=== PATIENT | female | born 1950 | race African-American/Black ===

== ENCOUNTER 2016-09-01 10:49 | Outpatient (CLI) | payer MEDICARE ==
--- NOTE | 2016-09-01 13:49 | Mammography Report ---
BILATERAL MAMMOGRAM: FINDINGS: The breasts are almost entirely fat (<25% glandular). No mass, distortion, suspicious calcification, or skin change is seen. There no significant changes compared to her prior study in July 2015. CAD was utilized. IMPRESSION: Negative mammogram. There is no mammographic evidence of malignancy. RECOMMENDATION: Follow-up per ACS guidelines. BI-RADS CATEGORY: 1 = Negative ACR BI-RADS MAMMOGRAPHIC CODES: 0 = Needs additional imaging evaluation; 1 = Negative; 2 = Benign; 3 = Probably benign; 4 = Suspicious; 5 = Malignant; 6 = Known biopsy-proven malignancy COMMENT: 1. Dense breast tissue, i.e., adenosis, fibrocystic changes, etc., may obscure an underlying neoplasm. 2. Approximately 10% of cancers are not detected with mammography. 3. A negative mammography report should not delay biopsy if a clinically suspicious mass is present. COMMENT: Patient follow-up letters are generated in [employer].
== END 2016-09-01 10:50 | disposition home or self-care (01) ==
LOC: MAMMO 10:49
PROVIDERS: ATTEND Family Medicine
DX: Z12.31 Encounter for screening mammogram for malignant neoplasm of breast (principal)
CPT/HCPCS: 77067; G0202

== ENCOUNTER 2017-01-11 02:15 | Emergency (ER) | payer MEDICARE ==
[2017-01-11 03:37] LABS: Basophils % (Auto) 0.2 % (0.0-1.8); Eosinophils % (Auto) 1.3 % (0.0-4.3); Hemoglobin 9.6 gm/dl (10.1-14.3); Mean Corpuscular HGB Conc 33 % (30-34); Mean Corpuscular Hemoglobin 26 pg (28-32); Mean Corpuscular Volume 78 fl (79-97); Platelet Count 176 K/mm3 (140-440); Red Blood Count 3.71 M/mm3 (3.65-5.03); Red Cell Distribution Width 13.2 % (13.2-15.2); White Blood Count 7.2 K/mm3 (4.5-11.0)
[2017-01-11 03:45] LABS: INR 0.97 (0.87-1.13)
[2017-01-11 03:59] LABS: Alanine Aminotransferase 95 units/L (7-56); Albumin 3.8 g/dL (3.9-5); Albumin/Globulin Ratio 0.9 %; Alkaline Phosphatase 94 units/L (35-129); Anion Gap 19 mmol/L; BUN/Creatinine Ratio 16.66; Blood Urea Nitrogen 15 mg/dL (7-17); Calcium 9.7 mg/dL (8.4-10.2); Carbon Dioxide 26 mmol/L (22-30); Chloride 99.4 mmol/L (98-107); Glucose 234 mg/dL (65-100); Lipase 47 units/L (13-60); Potassium 3.7 mmol/L (3.6-5.0); Sodium 141 mmol/L (137-145); Total Protein 7.9 g/dL (6.3-8.2)
[2017-01-11 07:03] LABS: Bacteria,Urine 1+ /HPF (Negative); Bilirubin,Urine NEG (Negative); Blood,Urine NEG (Negative); Ketones,Urine NEG (Negative); Leukocyte Esterase,Urine TR (Negative); Nitrite,Urine NEG (Negative); Protein,Urine <15 mg/dL mg/dL (Negative); Urobilinogen,Urine < 2.0 mg/dL (<2.0)
[2017-01-11 07:35] VITALS: BP 142/49
--- NOTE | 2017-01-11 07:40 | Emergency Department Report ---
ED Abdominal Pain HPI - General Chief Complaint: Abdominal Pain Stated Complaint: SEVERE STOMACH PAIN Time Seen by Provider: 01/11/17 07:30 Source: patient Mode of arrival: Ambulatory Limitations: No Limitations - History of Present Illness Initial Comments: Patient states her symptoms are much improved. She states that she vomited a few times and had diarrhea since 8:00 yesterday. She has some crampy abdominal pain which is resolved. She denies any fever or chills. She denies any signs of GI bleeding. She states that she is ready for discharge at this time. MD Complaint: abdominal pain -: Gradual, hour(s) Location: epigastric Radiation: none Migration to: no migration Severity scale (0 -10): 4 Quality: cramping Consistency: intermittent, now resolved Worsens With: nothing Associated Symptoms: nausea, vomiting, diarrhea Treatments Prior to Arrival: other - Related Data Previous Rx's Medication Instructions Recorded Last Taken Type Metformin HCl [Glucophage] 500 mg PO BID #60 tablet 01/11/17 Unknown Rx Ondansetron [Zofran Odt] 4 mg PO Q6H PRN #7 tab.rapdis 01/11/17 Unknown Rx traMADol [Ultram] 50 mg PO Q6HR PRN #7 tablet 01/11/17 Unknown Rx Allergies Allergy/AdvReac Type Severity Reaction Status Date / Time No Known Allergies Allergy Unverified 08/20/15 08:58 ED Review of Systems ROS: Stated complaint: SEVERE STOMACH PAIN Other details as noted in HPI Constitutional: denies: chills, fever Eyes: denies: eye pain, eye discharge, vision change ENT: denies: ear pain, throat pain Respiratory: denies: cough, shortness of breath, wheezing Cardiovascular: denies: chest pain, palpitations Endocrine: no symptoms reported Gastrointestinal: abdominal pain. denies: nausea, diarrhea Genitourinary: denies: urgency, dysuria, discharge Musculoskeletal: denies: back pain, joint swelling, arthralgia Skin: denies: rash, lesions Neurological: denies: headache, weakness, paresthesias Psychiatric: denies: anxiety, depression Hematological/Lymphatic: denies: easy bleeding, easy bruising ED Past Medical Hx - Past Medical History Previous Medical History?: Yes Hx Hypertension: Yes Hx Diabetes: Yes - Surgical History Past Surgical History?: No - Social History Smoking Status: Never Smoker Substance Use Type: None - Medications Home Medications: Home Medications Medication Instructions Recorded Confirmed Last Taken Type Metformin HCl [Glucophage] 500 mg PO BID #60 tablet 01/11/17 Unknown Rx Ondansetron [Zofran Odt] 4 mg PO Q6H PRN #7 tab.rapdis 01/11/17 Unknown Rx traMADol [Ultram] 50 mg PO Q6HR PRN #7 tablet 01/11/17 Unknown Rx ED Physical Exam - General Limitations: No Limitations General appearance: alert, in no apparent distress - Head Head exam: Present: atraumatic, normocephalic - Eye Eye exam: Present: normal appearance. Absent: scleral icterus - ENT ENT exam: Present: mucous membranes moist - Neck Neck exam: Present: normal inspection - Respiratory Respiratory exam: Present: normal lung sounds bilaterally. Absent: respiratory distress - Cardiovascular Cardiovascular Exam: Present: regular rate, normal rhythm. Absent: systolic murmur, diastolic murmur, rubs, gallop - GI/Abdominal GI/Abdominal exam: Present: soft, normal bowel sounds. Absent: distended, tenderness, guarding, rebound, rigid, organomegaly, mass, bruit, pulsatile mass , hernia - Extremities Exam Extremities exam: Present: normal inspection - Back Exam Back exam: Present: normal inspection - Neurological Exam Neurological exam: Present: alert, oriented X3, CN II-XII intact. Absent: motor sensory deficit - Psychiatric Psychiatric exam: Present: normal affect, normal mood - Skin Skin exam: Present: warm, dry, intact, normal color. Absent: rash ED Course Vital Signs 01/11/17 01/11/17 01/11/17 02:20 06:13 07:23 Temperature 98.0 F 98.9 F 98.8 F Pulse Rate 76 74 66 Respiratory 20 18 18 Rate Blood Pressure 125/66 Blood Pressure 131/79 142/49 [Right] O2 Sat by Pulse 99 95 100 Oximetry - Reevaluation(s) Reevaluation #1: Patient's symptoms have essentially resolved. She states she is ready to go home. She will be treated symptomatically with appropriate follow-up and return criteria given. 01/11/17 07:42 01/11/17 07:44 ED Medical Decision Making - Lab Data Result diagrams: 01/11/17 03:13 01/11/17 03:13 Laboratory Results - last 24 hr 01/11/17 01/11/17 01/11/17 03:13 03:13 03:13 WBC 7.2 RBC 3.71 Hgb 9.6 L Hct 29.0 L MCV 78 L MCH 26 L MCHC 33 RDW 13.2 Plt Count 176 Lymph % (Auto) 24.7 [place] % (Auto) 6.4 Eos % (Auto) 1.3 Baso % (Auto) 0.2 Lymph # 1.8 [place] # 0.5 Eos # 0.1 Baso # 0.0 Seg Neutrophils % 67.4 Seg Neutrophils # 4.9 PT INR APTT Sodium 141 Potassium 3.7 Chloride 99.4 Carbon Dioxide 26 Anion Gap 19 BUN 15 Creatinine 0.9 Estimated GFR > 60 BUN/Creatinine Ratio 16.66 Glucose 234 H Calcium 9.7 Total Bilirubin 0.90 AST 124 H ALT 95 H Alkaline Phosphatase 94 Troponin T < 0.010 Total Protein 7.9 Albumin 3.8 L Albumin/Globulin Ratio 0.9 Lipase 47 Urine Color Urine Turbidity Urine pH Ur Specific [place] Urine Protein Urine Glucose (UA) Urine Ketones Urine Blood Urine Nitrite Urine Bilirubin Urine Urobilinogen Ur Leukocyte Esterase Urine WBC (Auto) Urine RBC (Auto) U Epithel Cells (Auto) Urine Bacteria (Auto) Hyaline Casts 01/11/17 01/11/17 01/11/17 03:13 06:02 06:09 WBC RBC Hgb Hct MCV MCH MCHC RDW Plt Count Lymph % (Auto) [place] % (Auto) Eos % (Auto) Baso % (Auto) Lymph # [place] # Eos # Baso # Seg Neutrophils % Seg Neutrophils # PT 12.8 INR 0.97 APTT 24.0 L Sodium Potassium Chloride Carbon Dioxide Anion Gap BUN Creatinine Estimated GFR BUN/Creatinine Ratio Glucose Calcium Total Bilirubin AST ALT Alkaline Phosphatase Troponin T < 0.010 Total Protein Albumin Albumin/Globulin Ratio Lipase Urine Color Yellow Urine Turbidity Clear Urine pH 6.0 Ur Specific [place] 1.017 Urine Protein <15 mg/dl Urine Glucose (UA) 50 Urine Ketones Neg Urine Blood Neg Urine Nitrite Neg Urine Bilirubin Neg Urine Urobilinogen < 2.0 Ur Leukocyte Esterase Tr Urine WBC (Auto) 2.0 Urine RBC (Auto) 5.0 U Epithel Cells (Auto) 12.0 Urine Bacteria (Auto) 1+ Hyaline Casts 1 Laboratory Results - last 24 hr 01/11/17 01/11/17 01/11/17 03:13 03:13 03:13 WBC 7.2 RBC 3.71 Hgb 9.6 L Hct 29.0 L MCV 78 L MCH 26 L MCHC 33 RDW 13.2 Plt Count 176 Lymph % (Auto) 24.7 [place] % (Auto) 6.4 Eos % (Auto) 1.3 Baso % (Auto) 0.2 Lymph # 1.8 [place] # 0.5 Eos # 0.1 Baso # 0.0 Seg Neutrophils % 67.4 Seg Neutrophils # 4.9 PT INR APTT Sodium 141 Potassium 3.7 Chloride 99.4 Carbon Dioxide 26 Anion Gap 19 BUN 15 Creatinine 0.9 Estimated GFR > 60 BUN/Creatinine Ratio 16.66 Glucose 234 H Calcium 9.7 Total Bilirubin 0.90 AST 124 H ALT 95 H Alkaline Phosphatase 94 Troponin T < 0.010 Total Protein 7.9 Albumin 3.8 L Albumin/Globulin Ratio 0.9 Lipase 47 Urine Color Urine Turbidity Urine pH Ur Specific [place] Urine Protein Urine Glucose (UA) Urine Ketones Urine Blood Urine Nitrite Urine Bilirubin Urine Urobilinogen Ur Leukocyte Esterase Urine WBC (Auto) Urine RBC (Auto) U Epithel Cells (Auto) Urine Bacteria (Auto) Hyaline Casts 01/11/17 01/11/17 01/11/17 03:13 06:02 06:09 WBC RBC Hgb Hct MCV MCH MCHC RDW Plt Count Lymph % (Auto) [place] % (Auto) Eos % (Auto) Baso % (Auto) Lymph # [place] # Eos # Baso # Seg Neutrophils % Seg Neutrophils # PT 12.8 INR 0.97 APTT 24.0 L Sodium Potassium Chloride Carbon Dioxide Anion Gap BUN Creatinine Estimated GFR BUN/Creatinine Ratio Glucose Calcium Total Bilirubin AST ALT Alkaline Phosphatase Troponin T < 0.010 Total Protein Albumin Albumin/Globulin Ratio Lipase Urine Color Yellow Urine Turbidity Clear Urine pH 6.0 Ur Specific [place] 1.017 Urine Protein <15 mg/dl Urine Glucose (UA) 50 Urine Ketones Neg Urine Blood Neg Urine Nitrite Neg Urine Bilirubin Neg Urine Urobilinogen < 2.0 Ur Leukocyte Esterase Tr Urine WBC (Auto) 2.0 Urine RBC (Auto) 5.0 U Epithel Cells (Auto) 12.0 Urine Bacteria (Auto) 1+ Hyaline Casts 1 - EKG Data -: EKG Interpreted by Hi EKG shows normal: sinus rhythm, axis, intervals, QRS complexes, ST-T waves Rate: normal - EKG Data Interpretation: no acute changes Critical care attestation.: If time is entered above; I have spent that time in minutes in the direct care of this critically ill patient, excluding procedure time. ED Disposition Clinical Impression: Vomiting and diarrhea Anemia Qualifiers: Anemia type: unspecified type Qualified Code(s): D64.9 - Anemia, unspecified Type 2 diabetes mellitus Qualifiers: Diabetes mellitus complication status: without complication Diabetes mellitus group home insulin use: without buttermilk drier operator use Qualified Code(s): E11.9 - Type 2 diabetes mellitus without complications Disposition: TO HOME OR SELFCARE Is pt being admited?: No Does the pt Need Aspirin: No Condition: Stable Instructions: Diabetes Mellitus Type 2 in Adults (ED), Acute Diarrhea (ED), Abdominal Pain (ED) Additional Instructions: Follow-up with primary care provider. If you do not have one see the potential referrals. Rx as directed. Return any acute change or worsening symptoms. Prescriptions: Metformin HCl [Glucophage] 500 mg PO BID #60 tablet Ondansetron [Zofran Odt] 4 mg PO Q6H PRN #7 tab.rapdis PRN Reason: Nausea traMADol [Ultram] 50 mg PO Q6HR PRN #7 tablet PRN Reason: Pain Referrals: GABRIELA LARA MD [Primary Care Provider] - 3-5 Days [facility] [Provider Group] - 3-5 Days TERRANCE SALGADO MD [Staff Physician] - 3-5 Days Time of Disposition: 07:46
[2017-01-11] MEDS ORDERED: ULTRAM PO ONE (07:58)
[2017-01-11] MEDS ORDERED: ZOFRAN ODT PO ONE (07:58)
== END 2017-01-11 08:19 | disposition home or self-care (01) ==
LOC: ED 02:15
DX: D64.9 Anemia, unspecified (principal); E11.9 Type 2 diabetes mellitus without complications; R11.10 Vomiting, unspecified; R19.7 Diarrhea, unspecified; I10 Essential (primary) hypertension
CPT/HCPCS: 36415; 80053; 81001; 83690; 84484; 85025; 85610; 85730; 93005; 93010; Q0162

== ENCOUNTER 2020-07-06 07:52 | Inpatient (IN) | payer MEDICARE ==
--- NOTE | 2020-07-06 08:43 | Emergency Department Report ---
ED Shortness of Breath HPI - General Chief Complaint: Dyspnea/Respdistress Stated Complaint: COVID Time Seen by Provider: 07/06/20 08:15 Source: patient Mode of arrival: Ambulatory Limitations: No Limitations - History of Present Illness Initial Comments: 69-year-old female, history of hypertension and diabetes, presents to ED with shortness of breath. Patient tested positive for COVID-19 1 week ago. Patient reports associated cough. Patient presents to ED via EMS. O2 sats on room air is 75%. History obtained from patient's daughter and language line language interpreter. Patient speaks Laotian. MD Complaint: shortness of breath, cough -: week(s) (1) Severity: severe Consistency: constant Improves With: nothing Worsens With: exertion Context: recent URI (Covid positive) Associated Symptoms: cough Treatments Prior to Arrival: oxygen - Related Data Home Oxygen Therapy: No Previous Rx's Medication Instructions Recorded Last Taken Type Metformin HCl [Glucophage] 500 mg PO BID #60 tablet 01/11/17 Unknown Rx Ondansetron [Zofran Odt] 4 mg PO Q6H PRN #7 tab.rapdis 01/11/17 Unknown Rx traMADoL [Ultram] 50 mg PO Q6HR PRN #7 tablet 01/11/17 Unknown Rx Allergies Allergy/AdvReac Type Severity Reaction Status Date / Time No Known Allergies Allergy Unverified 08/20/15 08:58 ED Review of Systems ROS: Stated complaint: COVID Other details as noted in HPI Comment: All other systems reviewed and negative Constitutional: denies: fever Respiratory: cough, shortness of breath Cardiovascular: denies: chest pain ED Past Medical Hx - Past Medical History Previous Medical History?: Yes Hx Hypertension: Yes Hx Diabetes: Yes - Social History Smoking Status: Never Smoker Substance Use Type: None - Medications Home Medications: Home Medications Medication Instructions Recorded Confirmed Last Taken Type Metformin HCl [Glucophage] 500 mg PO BID #60 tablet 01/11/17 Unknown Rx Ondansetron [Zofran Odt] 4 mg PO Q6H PRN #7 tab.rapdis 01/11/17 Unknown Rx traMADoL [Ultram] 50 mg PO Q6HR PRN #7 tablet 01/11/17 Unknown Rx ED Physical Exam - General Limitations: No Limitations General appearance: alert - Head Head exam: Present: atraumatic, normocephalic - Eye Eye exam: Present: normal appearance - ENT ENT exam: Present: mucous membranes moist - Neck Neck exam: Present: normal inspection - Respiratory Respiratory exam: Present: respiratory distress, other (Tachypnea present) - Cardiovascular Cardiovascular Exam: Present: regular rate, normal rhythm - GI/Abdominal GI/Abdominal exam: Present: soft. Absent: distended, tenderness - Extremities Exam Extremities exam: Present: normal inspection - Neurological Exam Neurological exam: Present: alert, oriented X3 - Psychiatric Psychiatric exam: Present: normal affect, normal mood - Skin Skin exam: Present: warm, dry, intact, normal color ED Course Vital Signs 07/06/20 07/06/20 07/06/20 08:16 08:20 08:30 Temperature 98.4 F Pulse Rate 68 71 70 Respiratory 27 H 21 15 Rate Blood Pressure 135/70 Blood Pressure 135/70 [Right] O2 Sat by Pulse 80 L 75 L 89 Oximetry 07/06/20 09:00 Temperature Pulse Rate 66 Respiratory 25 H Rate Blood Pressure 109/62 Blood Pressure [Right] O2 Sat by Pulse 99 Oximetry - Reevaluation(s) Reevaluation #1: 07/06/20 09:[address] patient on high flow nasal cannula. ED Medical Decision Making - Lab Data Result diagrams: 07/06/20 08:50 07/06/20 08:50 - Radiology Data Radiology results: report reviewed, image reviewed - Medical Decision Making 69-year-old female presents to ED with symptoms secondary to COVID-19. Patient tested positive for COVID-19 1 week ago. Patient reports cough and shortness of breath. Patient hypoxic upon arrival, with room air sats in the 70s. Patient placed on high flow nasal cannula. Chest x-ray shows bilateral pneumonia. Glucose is slightly elevated at 385, however patient is not in DKA. Lactic acid slightly elevated at 2.3. Covid markers are also elevated. Renal function shows some evidence of acute renal failure. Blood cultures drawn. Patient given Rocephin, azithromycin, and Decadron. Patient will be admitted to hospitalist for further management. Spoke with Dr. Huynh, states to assign to Dr. Edwards. - Differential Diagnosis COVID-19, pneumonia Critical Care Time: Yes Critical care time in (mins) excluding proc time.: 35 Critical care attestation.: If time is entered above; I have spent that time in minutes in the direct care of this critically ill patient, excluding procedure time. Critical Care Time: 35 min ED Disposition Clinical Impression: Acute respiratory failure with hypoxia, COVID-19, Pneumonia, Acute renal failure, Hyperglycemia Disposition: OP ADMIT IP TO THIS HOSP Is pt being admited?: Yes Condition: Stable Instructions: Bacterial Pneumonia (ED) Referrals: PRIMARY CARE, [Primary Care Provider] - 3-5 Days Time of Disposition: 09:36
[2020-07-06] MEDS ORDERED: cefTRIAXone/NS 1 GM/50 ML 1 GM/50 ML BAG IV ONE (08:48)
[2020-07-06] MEDS ORDERED: DEXAMETHASONE 4 MG TAB PO ONE (08:48)
[2020-07-06] MEDS ORDERED: AZITHROMYCIN 250 MG TAB PO ONE (08:48)
--- NOTE | 2020-07-06 09:08 | XRay Report ---
CHEST 1 VIEW INDICATION: SOB, COVID+. COMPARISON: None FINDINGS: Support devices: None. Heart: Within normal limits. Lungs/Pleura: Diffuse hazy bilateral lung opacities are identified concerning for viral infection, at ypical pneumonia or pulmonary edema. No pleural effusion or pneumothorax. Additional findings: None. IMPRESSION: Bilateral infiltrates as described. Signer Name: Benito Macias Jr, MD Signed: 07/06/2020 9:03 AM Workstation Name: [id number]
[2020-07-06 09:14] LABS: Hematocrit 32.4 % (30.3-42.9); Hemoglobin 10.7 gm/dl (10.1-14.3); Mean Corpuscular HGB Conc 33 % (30-34); Mean Corpuscular Volume 78 fl (79-97); Platelet Count 243 K/mm3 (140-440); Red Blood Count 4.15 M/mm3 (3.65-5.03); Red Cell Distribution Width 13.2 % (13.2-15.2)
[2020-07-06 09:34] LABS: Albumin 3.2 g/dL (3.9-5); C-Reactive Protein 10.4 mg/dL (0.00-1.30); Calcium 8.5 mg/dL (8.4-10.2)
[2020-07-06 09:39] LABS: INR 1.15 (0.87-1.13)
[2020-07-06 09:40] LABS: Partial Thromboplastin Time 25.9 Sec. (24.2-36.6)
[2020-07-06 10:19] LABS: Band Neutrophils # (Manual) 0.4 K/mm3; Total Cells Counted 100
[2020-07-06 10:20] LABS: Anisocytosis 1+; Hypochromasia 1+; Ovalocytes Few; Platelet Estimate Consistent w Auto
--- NOTE | 2020-07-06 10:51 | History and Physical Report ---
History of Present Illness Date of admission: 07/06/20 10:06 History of present illness: This is a 69-year-old female with hypertension, diabetes mellitus, hyperlipidemia who presented to the hospital on 07/06 via EMS with worsening subjective fevers, headache, body ache, dry cough, dyspnea on exertion, fatigue, headache and nausea since the last week end of May. Patient had a positive COVID-19 PCR on 07/05 as outside facility. Patient has limited [place] and no park interpreter line available for use. History is obtained from her daughter Rebecca and ED documentation. Patient did not complain of any hemoptysis, chest pain, night sweats, loss of taste or smell or recent weight loss to her daughter. Patient's family denies any recent travel but endorses possible COVID-19 exposure and next border to sick in household. Upon arrival to the emergency department patient was hypoxic on room air at 75% and tachypneic. Work-up in the emergency department with a CXR which showed bilateral pneumonia, lactic acidosis at 2.3, acute kidney injury at 1.6/45, elevated D-dimer, elevated troponin and slight hyponatremia 136. Patient received Rocephin, azithromycin and Decadron in the emergency department. Patient was admitted to the hospitalist service as a COVID-19 PUI, acute kidney injury, sepsis, lactic acidosis, and elevated D-dimer with consults to pulmonology and infectious disease. Prior visits reviewed and advanced care planning conducted with the daughter over the phone. No home medications available to reconcile. 07/06: COVID-19 PCR positive, azithromycin and Rocephin, Decadron and remdesivir therapy Past History Past Medical History: diabetes, hypertension, hyperlipidemia Past Surgical History: cholecystectomy (2018) Social history: , lives with family, full code. denies: smoking, alcohol abuse, prescription drug abuse, IV drug use Family history: no significant family history Medications and Allergies Allergies Allergy/AdvReac Type Severity Reaction Status Date / Time No Known Allergies Allergy Unverified 08/20/15 08:58 Home Medications Medication Instructions Recorded Confirmed Last Taken Type Unobtainable 07/06/20 07/06/20 Unknown History Review of Systems Constitutional: fever, fatigue, weakness, lethargy, no weight loss, no weight gain, no chills, no sweats, no night sweats, no anorexia Cardiovascular: shortness of breath, dyspnea on exertion Respiratory: cough, shortness of breath, dyspnea on exertion, no hemoptysis Gastrointestinal: nausea, vomiting, no abdominal pain, no diarrhea Exam - Constitutional Vitals: Temp Pulse Resp BP Pulse Ox 98.4 F 66 25 H 109/62 99 07/06/20 08:20 07/06/20 09:00 07/06/20 09:00 07/06/20 09:00 07/06/20 09:00 General appearance: Present: mild distress - EENT Eyes: Present: EOM intact ENT: hearing decreased, poor dentition - Neck Neck: Present: normal ROM - Respiratory Respiratory effort: labored Respiratory: bilateral: diminished - Cardiovascular Rhythm: regular Heart Sounds: Present: S1 & S2. Absent: systolic murmur, diastolic murmur - Extremities Extremities: no ischemia, pulses intact, pulses symmetrical, No edema, normal temperature, normal color, Full ROM Peripheral Pulses: within normal limits - Abdominal General gastrointestinal: Present: soft, non-tender, non-distended, normal bowel sounds - Integumentary Integumentary: Present: clear, warm, dry - Musculoskeletal Musculoskeletal: strength equal bilaterally - Psychiatric Psychiatric: appropriate mood/affect, cooperative - Neurologic Neurologic: CNII-XII intact, no focal deficits, moves all extremities - Allied Health Allied health notes reviewed: nursing HEART Score - HEART Score Troponin: Troponin T 0.034 ng/mL (0.00-0.029) H 07/06/20 08:50 Results - Labs CBC & Chem 7: 07/06/20 08:50 07/06/20 08:50 Labs: Laboratory Last Values WBC 8.8 K/mm3 (4.5-11.0) 07/06/20 08:50 RBC 4.15 M/mm3 (3.65-5.03) 07/06/20 08:50 Hgb 10.7 gm/dl (10.1-14.3) 07/06/20 08:50 Hct 32.4 % (30.3-42.9) 07/06/20 08:50 MCV 78 fl (79-97) L 07/06/20 08:50 MCH 26 pg (28-32) L 07/06/20 08:50 MCHC 33 % (30-34) 07/06/20 08:50 RDW 13.2 % (13.2-15.2) 07/06/20 08:50 Plt Count 243 K/mm3 (140-440) 07/06/20 08:50 Add Manual Diff Complete 07/06/20 08:50 Total Counted 100 07/06/20 08:50 Seg Neuts % (Manual) 80.0 % (40.0-70.0) H 07/06/20 08:50 Band Neutrophils % 5.0 % 07/06/20 08:50 Lymphocytes % (Manual) 10.0 % (13.4-35.0) L 07/06/20 08:50 Monocytes % (Manual) 2.0 % (0.0-7.3) 07/06/20 08:50 Metamyelocytes % 3.0 % 07/06/20 08:50 Nucleated RBC % 4.0 % (0.0-0.9) H 07/06/20 08:50 Seg Neutrophils # Man 7.0 K/mm3 (1.8-7.7) 07/06/20 08:50 Band Neutrophils # 0.4 K/mm3 07/06/20 08:50 Lymphocytes # (Manual) 0.9 K/mm3 (1.2-5.4) L 07/06/20 08:50 Abs React Lymphs (Man) 0.0 K/mm3 07/06/20 08:50 Monocytes # (Manual) 0.2 K/mm3 (0.0-0.8) 07/06/20 08:50 Eosinophils # (Manual) 0.0 K/mm3 (0.0-0.4) 07/06/20 08:50 Basophils # (Manual) 0.0 K/mm3 (0.0-0.1) 07/06/20 08:50 Metamyelocytes # 0.3 K/mm3 07/06/20 08:50 Myelocytes # 0.0 K/mm3 07/06/20 08:50 Promyelocytes # 0.0 K/mm3 07/06/20 08:50 Blast Cells # 0.0 K/mm3 07/06/20 08:50 WBC Morphology Not Reportable 07/06/20 08:50 Hypersegmented Neuts Not Reportable 07/06/20 08:50 Hyposegmented Neuts Not Reportable 07/06/20 08:50 Hypogranular Neuts Not Reportable 07/06/20 08:50 Smudge Cells Not Reportable 07/06/20 08:50 Toxic Granulation Not Reportable 07/06/20 08:50 Toxic Vacuolation Not Reportable 07/06/20 08:50 Dohle Bodies Not Reportable 07/06/20 08:50 Pelger-Huet Anomaly Not Reportable 07/06/20 08:50 Rudy Rods Not Reportable 07/06/20 08:50 Platelet Estimate Consistent w auto 07/06/20 08:50 Clumped Platelets Not Reportable 07/06/20 08:50 Plt Clumps, EDTA Not Reportable 07/06/20 08:50 Large Platelets Not Reportable 07/06/20 08:50 Giant Platelets Not Reportable 07/06/20 08:50 Platelet Satelliting Not Reportable 07/06/20 08:50 Plt Morphology Comment Not Reportable 07/06/20 08:50 RBC Morphology Not Reportable 07/06/20 08:50 Dimorphic RBCs Not Reportable 07/06/20 08:50 Polychromasia Rare 07/06/20 08:50 Hypochromasia 1+ 07/06/20 08:50 Poikilocytosis Not Reportable 07/06/20 08:50 Anisocytosis 1+ 07/06/20 08:50 Microcytosis Not Reportable 07/06/20 08:50 Macrocytosis Not Reportable 07/06/20 08:50 Spherocytes Not Reportable 07/06/20 08:50 Pappenheimer Bodies Not Reportable 07/06/20 08:50 Sickle Cells Not Reportable 07/06/20 08:50 Target Cells Not Reportable 07/06/20 08:50 Tear Drop Cells Not Reportable 07/06/20 08:50 Ovalocytes Few 07/06/20 08:50 Helmet Cells Not Reportable 07/06/20 08:50 [place] Bodies Not Reportable 07/06/20 08:50 [place] Rings Not Reportable 07/06/20 08:50 [place] Cells Not Reportable 07/06/20 08:50 Bite Cells Not Reportable 07/06/20 08:50 Crenated Cell Not Reportable 07/06/20 08:50 Elliptocytes Few 07/06/20 08:50 Acanthocytes (Spur) Not Reportable 07/06/20 08:50 Rouleaux Not Reportable 07/06/20 08:50 Hemoglobin C Crystals Not Reportable 07/06/20 08:50 Schistocytes Not Reportable 07/06/20 08:50 Malaria parasites Not Reportable 07/06/20 08:50 Shreyas Bodies Not Reportable 07/06/20 08:50 Hem Pathologist Commnt No 07/06/20 08:50 PT 14.7 Sec. (12.2-14.9) 07/06/20 08:50 INR 1.15 (0.87-1.13) H 07/06/20 08:50 APTT 25.9 Sec. (24.2-36.6) 07/06/20 08:50 D-Dimer 1435.13 ng/mlDDU (0-234) H 07/06/20 08:50 Sodium 136 mmol/L (137-145) L 07/06/20 08:50 Potassium 4.7 mmol/L (3.6-5.0) 07/06/20 08:50 Chloride 100.6 mmol/L (98-107) 07/06/20 08:50 Carbon Dioxide 25 mmol/L (22-30) 07/06/20 08:50 Anion Gap 15 mmol/L 07/06/20 08:50 BUN 45 mg/dL (7-17) H 07/06/20 08:50 Creatinine 1.6 mg/dL (0.6-1.2) H 07/06/20 08:50 Estimated GFR 32 ml/min 07/06/20 08:50 BUN/Creatinine Ratio 28 % 07/06/20 08:50 Glucose 385 mg/dL (65-100) H 07/06/20 08:50 Glucose 385 mg/dL (65-100) H 07/06/20 08:50 Lactic Acid 2.30 mmol/L (0.7-2.0) H* 07/06/20 08:50 Calcium 8.5 mg/dL (8.4-10.2) 07/06/20 08:50 Ferritin 1158.0 ng/mL (10.0-200.0) H 07/06/20 08:50 Total Bilirubin 0.70 mg/dL (0.1-1.2) 07/06/20 08:50 AST 30 units/L (5-40) 07/06/20 08:50 ALT 32 units/L (7-56) 07/06/20 08:50 Alkaline Phosphatase 130 units/L (35-129) H 07/06/20 08:50 Lactate Dehydrogenase 471 units/L (91-180) H 07/06/20 08:50 Troponin T 0.034 ng/mL (0.00-0.029) H 07/06/20 08:50 C-Reactive Protein 10.40 mg/dL (0.00-1.30) H 07/06/20 08:50 Total Protein 7.3 g/dL (6.3-8.2) 07/06/20 08:50 Albumin 3.2 g/dL (3.9-5) L 07/06/20 08:50 Albumin/Globulin Ratio 0.8 % 07/06/20 08:50 Procalcitonin 11.26 ng/mL (<0.15) 07/06/20 08:50 - Imaging and Cardiology Chest x-ray: image reviewed - Diagnostic Impressions Diagnostic Impressions: -07/06 CXR shows diffuse hazy bilateral lung opacities concerning for viral infection, atypical pneumonia or pulmonary edema with no pleural effusions or pneumothorax -07/06 nuclear medicine perfusion study shows low probability of pulmonary embolism -07/06 bilateral lower extremity Doppler ultrasound negative for DVT/SVT Assessment and Plan Assessment and plan: Sepsis -Presented with hypoxia, tachypnea and acute hypoxic respiratory failure, acute kidney injury, pneumonia on CXR and COVID-19 infection -07/06 blood cultures x2 pending -Antibiotic therapy -Infectious disease consulted, appreciate recommendations COVID-19 infection -07/06 CXR shows diffuse hazy bilateral lung opacities concerning for viral infection, atypical pneumonia or pulmonary edema with no pleural effusions or pneumothorax -07/06 COVID-19 PCR positive -07/05 COVID-19 PCR at outside facility positive -Infectious disease and pulmonology consulted, appreciate recommendations -Contact/droplet isolation -Pulmonary hygiene -Supplemental oxygen as needed -Antibiotic therapy -Infectious disease initiated remdesivir therapy -Steroid therapy -OOB 3 times daily -Prone to sleep as needed -Anticoagulation per protocol -Vitamin C, vitamin D and zinc -SPO2 monitoring Bilateral pneumonia -07/06 CXR shows diffuse hazy bilateral lung opacities concerning for viral infection, atypical pneumonia or pulmonary edema with no pleural effusions or pneumothorax -Secondary to COVID-19 infection -Antibiotic therapy -Infectious disease consulted, appreciate recommendation -07/06 blood cultures x2 pending Elevated D-dimer -Admit D-dimer 1435 -07/06 nuclear medicine perfusion study shows low probability of pulmonary embolism -07/06 bilateral lower extremity Doppler ultrasound negative for DVT/SVT Acute hypoxic respiratory failure -Room air SPO2 75% and placed on high flow nasal cannula -Pulmonary consulted, patient recommendation -Steroid therapy -Supplemental oxygen as needed -Pulmonary hygiene -SPO2 monitoring Elevated troponin -Presented with a troponin of 0.034 -07/06 troponin less than 0.10 -Cardiology consulted, appreciate recommendations -EKG as needed -No complaints of chest pain -Cardiology believes elevated troponin is in setting of acute kidney injury Acute kidney injury -12/2016 creatinine/BUN 0.9/15 -Presented with a creatinine/BUN 1.6/45 -Trend BMP -Urine studies pending -Consider nephrology consult if not improving -MIVF x1 L Lactic acidosis -Presented with a lactic acid of 2.3 -Trend lactic acid -MIVF for 1 L Hypertension -Restart home antihypertensive regimen once obtained -Hydralazine as needed for SBP greater than 160 -Blood pressure monitoring per protocol Diabetes mellitus -07/06 hemoglobin A1c 11.8 -SSI -CC cardiac diet -Accu-Cheks AC at bedtime -Hypoglycemia protocol DVT prophylaxis -Heparin subcu -GI prophylaxis -SCDs to bilateral lower extremities while in bed Full code VTE prophylaxis?: Chemical, Mechanical Plan of care discussed with patient/family: Yes
[2020-07-06] MEDS ORDERED: ONDANSETRON 4 MG/2 ML INJ IV PRN (11:01)
[2020-07-06] MEDS ORDERED: oxyCODONE /ACETAMINOPHEN 5-325MG TAB PO PRN (11:01)
[2020-07-06] MEDS ORDERED: ALUM-MAG HYDROXIDE-SIMETHICONE 200-200-20MG/5ML ORAL LIQD 30 ML PO PRN (11:01)
[2020-07-06] MEDS ORDERED: DEXTROSE 50% IN WATER (25GM) 50 ML SYRINGE IV PRN (11:01)
--- NOTE | 2020-07-06 11:22 | Consultation ---
History of Present Illness Consult date: 07/06/20 Consult reason: elevated troponin History of present illness: This is a 69-year non-Maltese speaking woman who reportedly tested positive for COVID-19 several days ago. Patient was brought to this hospital with worsening shortness of breath, hypoxemia with oxygen saturation in the 70s. Chest x-ray reports bilateral infiltrates consistent with pneumonia. A cardiac consultation has been requested for non-specific elevated troponin, likely in the setting of acute renal disease with a creatinine of 1.6. There were no report of chest pain, no palpitation and no syncope. ECG is pending for review. Comorbidities includes diabetes and hypertension. Past History Past Medical History: diabetes, hypertension Medications and Allergies Allergies Allergy/AdvReac Type Severity Reaction Status Date / Time No Known Allergies Allergy Unverified 08/20/15 08:58 Home Medications Medication Instructions Recorded Confirmed Last Taken Type Unobtainable 07/06/20 07/06/20 Unknown History Active Meds: Active Medications Acetaminophen (Acetaminophen 325 Mg Tab) 650 mg PO Q4H PRN PRN Reason: Pain MILD(1-3)/Fever >100.5/OHAAR Al Hydrox/Mg Hydrox/Simethicone (Alum-Mag Hydroxide-Simethicone 502-899-48xc/5ml Oral Liqd 30 Ml) 30 ml PO Q4H PRN PRN Reason: Indigestion Azithromycin (Azithromycin 250 Mg Tab) 500 mg PO QDAY MITALI; Protocol Stop: 07/10/20 10:01 Dexamethasone (Dexamethasone 4 Mg Tab) 6 mg PO QDAY MITALI Stop: 07/15/20 10:01 Dextrose (Dextrose 50% In Water (25gm) 50 Ml Syringe) 50 ml IV Q30MIN PRN; Protocol PRN Reason: Hypoglycemia Docusate Sodium (Docusate Sodium 100 Mg Cap) 100 mg PO BID [facility] Famotidine (Famotidine 10 Mg Tab) 10 mg PO BID [facility] Heparin Sodium (Porcine) (Heparin 5,000 Unit/1 Ml Vial) 5,000 unit SUB-Q Q12HR [facility]ALI Ceftriaxone Sodium (Rocephin/Ns 2 Gm/100 Ml) 2 gm in 100 mls @ 200 mls/hr IV Q24HR [facility]; Protocol Ondansetron HCl (Ondansetron 4 Mg/2 Ml Inj) 4 mg IV Q8H PRN PRN Reason: Nausea And Vomiting Oxycodone/Acetaminophen (Oxycodone /Acetaminophen 5-325mg Tab) 1 tab PO Q6H PRN PRN Reason: Pain, Moderate (4-6) Senna (Sennosides 8.6 Mg Tab) 8.6 mg PO Q12HR [facility]ALI Sodium Chloride (Sodium Chloride 0.9% 10 Ml Flush Syringe) 10 ml IV BID [facility]ALI Sodium Chloride (Sodium Chloride 0.9% 10 Ml Flush Syringe) 10 ml IV PRN PRN PRN Reason: LINE FLUSH Review of Systems Cardiovascular: shortness of breath, no chest pain Respiratory: cough Physical Examination Vital Signs Pulse Resp Pulse Ox 68 27 H 80 L 07/06/20 08:16 07/06/20 08:16 07/06/20 08:16 Narrative exam: Deferred due to isolation protocol General appearance: no acute distress Results 07/06/20 08:50 07/06/20 08:50 Cardiac Enzymes 07/06/20 07/06/20 Range/Units 08:50 08:50 AST 30 (5-40) units/L Lactate Dehydrogenase 471 H (91-180) units/L Coagulation 07/06/20 Range/Units 08:50 PT 14.7 (12.2-14.9) Sec. INR 1.15 H (0.87-1.13) APTT 25.9 (24.2-36.6) Sec. CBC 07/06/20 Range/Units 08:50 WBC 8.8 (4.5-11.0) K/mm3 RBC 4.15 (3.65-5.03) M/mm3 Hgb 10.7 (10.1-14.3) gm/dl Hct 32.4 (30.3-42.9) % Plt Count 243 (140-440) K/mm3 Comprehensive Metabolic Panel 07/06/20 07/06/20 Range/Units 08:50 08:50 Sodium 136 L (137-145) mmol/L Potassium 4.7 (3.6-5.0) mmol/L Chloride 100.6 (98-107) mmol/L Carbon Dioxide 25 (22-30) mmol/L BUN 45 H (7-17) mg/dL Creatinine 1.6 H (0.6-1.2) mg/dL Glucose 385 H 385 H (65-100) mg/dL Calcium 8.5 (8.4-10.2) mg/dL AST 30 (5-40) units/L ALT 32 (7-56) units/L Alkaline Phosphatase 130 H (35-129) units/L Total Protein 7.3 (6.3-8.2) g/dL Albumin 3.2 L (3.9-5) g/dL Assessment and Plan Non-specific elevated troponin likely in the setting of ARF COVID 19 viral pneumonia Respiratory failure Hypertension Diabetes Treatment of COVID per primary team, infectious disease and pulmonary. Conservative cardiac management.
--- NOTE | 2020-07-06 12:56 | Vascular Lab Report ---
DUPLEX DOPPLER LOWER EXTREMITY VEINS, BILATERAL INDICATION / CLINICAL INFORMATION: Covid 19, possible DVT. TECHNIQUE: Duplex doppler imaging was performed through the veins of both lower extremities using venous joaquín lynda and other maneuvers. COMPARISON: None available. FINDINGS: RIGHT COMMON FEMORAL VEIN: Negative. RIGHT FEMORAL VEIN: Negative. RIGHT POPLITEAL VEIN: Negative. RIGHT CALF VEINS: Negative. LEFT COMMON FEMORAL VEIN: Negative. LEFT FEMORAL VEIN: Negative. LEFT POPLITEAL VEIN: Negative. LEFT CALF VEINS: Negative. ADDITIONAL FINDINGS: None. IMPRESSION: 1. No sonographic evidence for DVT in either lower extremity. Signer Name: Lance Finley MD Signed: 07/06/2020 12:51 PM Workstation Name: [id number]
--- NOTE | 2020-07-06 15:05 | Nuclear Medicine Report ---
NUCLEAR MEDICINE PERFUSION LUNG SCAN INDICATION / CLINICAL INFORMATION: r/o PE. TECHNIQUE: 5.2 mCi of Tc-99m MAA were given by IV. COMPARISON: Chest radiograph from earlier today.. FINDINGS: PERFUSION: No significant perfusion defects. ADDITIONAL FINDINGS: None. IMPRESSION: 1. Low probability for pulmonary embolism. Signer Name: Joshua Pettit MD Signed: 07/06/2020 3:00 PM Workstation Name: [id number]
--- NOTE | 2020-07-06 15:25 | Consultation ---
History of Present Illness - Reason for Consult Consult date: 07/06/20 COVID Requesting physician: PAULETTE MCDANIEL - History of Present Illness The patient is a 69-year-old female with hypertension, diabetes admitted to the hospital with complaints of cough and shortness of breath going on for the last 1 week. She tested positive for COVID-19 as an outpatient a week ago. Upon evaluation in the ER, she was noted to be hypoxic. Afebrile. Labs revealed n ormal WBC, D-dimer 1435, lactic acidosis, ferritin 1158, troponin 0 0.03, CRP 10.4, procalcitonin 11.26, creatinine 1.6, LDH 471. COVID-19 test here is also positive. She is currently on high flow nasal cannula. Review of Systems: reviewed in the chart, unable to obtain, minimize risk of transmission Past History Past Medical History: diabetes, hypertension Medications and Allergies Allergies Allergy/AdvReac Type Severity Reaction Status Date / Time No Known Allergies Allergy Unverified 08/20/15 08:58 Home Medications Medication Instructions Recorded Confirmed Last Taken Type Unobtainable 07/06/20 07/06/20 Unknown History Active Meds: Active Medications Acetaminophen (Acetaminophen 325 Mg Tab) 650 mg PO Q4H PRN PRN Reason: Pain MILD(1-3)/Fever >100.5/OHARA Al Hydrox/Mg Hydrox/Simethicone (Alum-Mag Hydroxide-Simethicone [id number]/5ml Oral Liqd 30 Ml) 30 ml PO Q4H PRN PRN Reason: Indigestion Ascorbic Acid (Ascorbic Acid 500 Mg Tab) 500 mg PO QDAY MITALI Azithromycin (Azithromycin 250 Mg Tab) 500 mg PO QDAY MITALI; Protocol Stop: 07/10/20 10:01 Dexamethasone (Dexamethasone 4 Mg Tab) 6 mg PO QDAY MITALI Stop: 07/15/20 10:01 Dextrose (Dextrose 50% In Water (25gm) 50 Ml Syringe) 50 ml IV Q30MIN PRN; Protocol PRN Reason: Hypoglycemia Docusate Sodium (Docusate Sodium 100 Mg Cap) 100 mg PO BID MITALI Famotidine (Famotidine 10 Mg Tab) 10 mg PO BID [facility]AL[facility] Heparin Sodium (Porcine) (Heparin 5,000 Unit/1 Ml Vial) 5,000 unit SUB-Q Q12HR [facility] Ceftriaxone Sodium (Rocephin/Ns 2 Gm/100 Ml) 2 gm in 100 mls @ 200 mls/hr IV Q24HR [facility]; Protocol Ondansetron HCl (Ondansetron 4 Mg/2 Ml Inj) 4 mg IV Q8H PRN PRN Reason: Nausea And Vomiting Oxycodone/Acetaminophen (Oxycodone /Acetaminophen 5-325mg Tab) 1 tab PO Q6H PRN PRN Reason: Pain, Moderate (4-6) Senna (Sennosides 8.6 Mg Tab) 8.6 mg PO Q12HR MITALI Sodium Chloride (Sodium Chloride 0.9% 10 Ml Flush Syringe) 10 ml IV BID MITALI Sodium Chloride (Sodium Chloride 0.9% 10 Ml Flush Syringe) 10 ml IV PRN PRN PRN Reason: LINE FLUSH Zinc Sulfate (Zinc Sulfate 220 Mg Cap) 220 mg PO QDAY MITALI Physical Examination - Physical Exam Narrative exam: Physical Exam (reviewed in chart to minimize risk of transmission) Constitutional: deferred Head, Ears, Nose: deferred Eyes: deferred Neck: deferred Oral: deferred Cardiovascular: deferred Respiratory: deferred GI: deferred Musculoskeletal: deferred Skin: deferred Hem/Lymphatic: deferred Psych: deferred Neurological: deferred - Constitutional Vitals: Vital Signs Temp Pulse Resp BP Pulse Ox 98.4 F 57 L 16 162/65 92 07/06/20 08:20 07/06/20 13:00 07/06/20 13:00 07/06/20 13:00 07/06/20 13:00 Temperature -Last 24 Hours Temperature 98.4 F Results - Labs CBC & Chem 7: 07/06/20 08:50 07/06/20 08:50 Labs: Abnormal lab results 07/06/20 07/06/20 07/06/20 Range/Units 08:50 08:50 08:50 MCV 78 L (79-97) fl MCH 26 L (28-32) pg Seg Neuts % (Manual) 80.0 H (40.0-70.0) % Lymphocytes % (Manual) 10.0 L (13.4-35.0) % Nucleated RBC % 4.0 H (0.0-0.9) % Lymphocytes # (Manual) 0.9 L (1.2-5.4) K/mm3 INR 1.15 H (0.87-1.13) D-Dimer 1435.13 H (0-234) ng/mlDDU Sodium 136 L (137-145) mmol/L BUN 45 H (7-17) mg/dL Creatinine 1.6 H (0.6-1.2) mg/dL Glucose 385 H (65-100) mg/dL Lactic Acid (0.7-2.0) mmol/L Ferritin (10.0-200.0) ng/mL Alkaline Phosphatase 130 H (35-129) units/L Lactate Dehydrogenase (91-180) units/L Troponin T 0.034 H (0.00-0.029) ng/mL C-Reactive Protein (0.00-1.30) mg/dL Albumin 3.2 L (3.9-5) g/dL Coronavirus (PCR) (Negative) 07/06/20 07/06/20 07/06/20 Range/Units 08:50 08:50 08:50 MCV (79-97) fl MCH (28-32) pg Seg Neuts % (Manual) (40.0-70.0) % Lymphocytes % (Manual) (13.4-35.0) % Nucleated RBC % (0.0-0.9) % Lymphocytes # (Manual) (1.2-5.4) K/mm3 INR (0.87-1.13) D-Dimer (0-234) ng/mlDDU Sodium (137-145) mmol/L BUN (7-17) mg/dL Creatinine (0.6-1.2) mg/dL Glucose 385 H (65-100) mg/dL Lactic Acid 2.30 H* (0.7-2.0) mmol/L Ferritin 1158.0 H (10.0-200.0) ng/mL Alkaline Phosphatase (35-129) units/L Lactate Dehydrogenase 471 H (91-180) units/L Troponin T (0.00-0.029) ng/mL C-Reactive Protein 10.40 H (0.00-1.30) mg/dL Albumin (3.9-5) g/dL Coronavirus (PCR) (Negative) 07/06/20 Range/Units 09:26 MCV (79-97) fl MCH (28-32) pg Seg Neuts % (Manual) (40.0-70.0) % Lymphocytes % (Manual) (13.4-35.0) % Nucleated RBC % (0.0-0.9) % Lymphocytes # (Manual) (1.2-5.4) K/mm3 INR (0.87-1.13) D-Dimer (0-234) ng/mlDDU Sodium (137-145) mmol/L BUN (7-17) mg/dL Creatinine (0.6-1.2) mg/dL Glucose (65-100) mg/dL Lactic Acid (0.7-2.0) mmol/L Ferritin (10.0-200.0) ng/mL Alkaline Phosphatase (35-129) units/L Lactate Dehydrogenase (91-180) units/L Troponin T (0.00-0.029) ng/mL C-Reactive Protein (0.00-1.30) mg/dL Albumin (3.9-5) g/dL Coronavirus (PCR) Positive A (Negative) - Imaging and Cardiology Chest x-ray: report reviewed, image reviewed (b/l pneumonia) Assessment and Plan Cultures: SARS CoV2 PCR: Positive 07/06/2020 blood culture: No growth A/P: 69-year-old female with hypertension, diabetes: #Sepsis: Secondary to COVID-19 #Bilateral pneumonia: Secondary to COVID-19 #Acute hypoxic respiratory failure: On HFNC #CARMEN: Monitor renal function #Elevated D-dimer: VTE evaluation negative Recs: -IV/PO Dexamethasone 6 mg daily x 10 days -Continue empiric antibiotics due to elevated procalcitonin -IV remdesivir ordered -prophylactic anticoagulation based on d-dimer per hospital protocol -trend ferritin, LDH, d-dimer, CRP every 2-3 days for risk stratification and to assess disease progression Yuliet Leija MD, FACP [facility] O: [phone] F: [phone]
[2020-07-06] MEDS ORDERED: REMDESIVIR 200 MG in SODIUM CHLORIDE 0.9% 250ML 250 ML IV ONE (16:00)
[2020-07-06] MEDS ORDERED: REMDESIVIR 100 MG VIAL IV ONE (16:00)
[2020-07-06 16:21] LABS: Creatine Kinase MB 1.6 ng/mL (0.0-4.0)
[2020-07-06] MEDS: ZINC SULFATE 220 MG CAP PO SCH (18:24)
[2020-07-06] MEDS: SODIUM CHLORIDE 0.9% 50 ML IVPB IV SCH ×2 (18:24→22:41)
[2020-07-06] MEDS: ASCORBIC ACID 500 MG TAB PO SCH (18:24)
[2020-07-06] MEDS ORDERED: HEPARIN 5,000 UNIT/1 ML VIAL SUB-Q SCH (22:00)
[2020-07-06] MEDS ORDERED: FAMOTIDINE 10 MG TAB PO SCH (22:00)
[2020-07-06] MEDS ORDERED: FAMOTIDINE 20 MG TAB PO SCH (22:00)
[2020-07-06] MEDS: DOCUSATE SODIUM 100 MG CAP PO SCH (22:41)
[2020-07-06] MEDS: SENNOSIDES 8.6 MG TAB PO SCH (22:41)
[2020-07-06] MEDS: INSULIN LISPRO 100 UNIT/ML SUB-Q SCH (22:42)
[2020-07-07 01:04] LABS: Creatine Kinase MB 1.6 ng/mL (0.0-4.0)
[2020-07-07 03:02] LABS: Hematocrit 33.1 % (30.3-42.9); Hemoglobin 10.7 gm/dl (10.1-14.3); Mean Corpuscular HGB Conc 32 % (30-34); Mean Corpuscular Volume 79 fl (79-97); Platelet Count 240 K/mm3 (140-440); Red Blood Count 4.19 M/mm3 (3.65-5.03); Red Cell Distribution Width 13.6 % (13.2-15.2)
[2020-07-07 03:22] LABS: Calcium 8.5 mg/dL (8.4-10.2)
[2020-07-07 03:53] LABS: Band Neutrophils # (Manual) 0.4 K/mm3; Total Cells Counted 100
[2020-07-07 03:54] LABS: Anisocytosis Few; Hypochromasia 1+; Ovalocytes Few; Tear Drop Cells Rare
[2020-07-07 03:55] LABS: Platelet Estimate Consistent w Auto
[2020-07-07 04:10] LABS: Osmolality,Urine 731 Mosm/kg
[2020-07-07 04:49] LABS: Bacteria,Urine 1+ /HPF (Negative); Bilirubin,Urine NEG (Negative); Blood,Urine NEG (Negative); Color,Urine Yellow (Yellow); WBC,Urine < 1.0 /HPF (0.0-6.0)
[2020-07-07] MEDS ORDERED: hydrALAZINE 20 MG/1 ML INJ IV PRN (07:28)
[2020-07-07] MEDS ORDERED: INSULIN NPH/REGULAR 70/30 INJ SUB-Q SCH (08:00)
--- NOTE | 2020-07-07 09:57 | XRay Report ---
CHEST 1 VIEW INDICATION: hypoxia COMPARISON: 07/06/2020 FINDINGS: SUPPORT DEVICES: None. HEART / MEDIASTINUM: No significant abnormality. LUNGS / PLEURA: Bronchovascular markings are prominent. No significant pulmonary or pleural abnormali ty. No pneumothorax. ADDITIONAL FINDINGS: IMPRESSION: 1. Persistent diffuse pulmonary process, pulmonary edema is a concern Signer Name: Aki Shaw MD Signed: 07/07/2020 9:52 AM Workstation Name: [id number]
[2020-07-07] MEDS ORDERED: AZITHROMYCIN 250 MG TAB PO SCH (10:00)
--- NOTE | 2020-07-07 10:02 | Progress Note ---
Assessment and Plan Non-specific elevated troponin likely in the setting of ARF 12 lead ECG is sinus bradycardia, rate 57, otherwise normal. COVID 19 viral pneumonia Respiratory failure Hypertension Diabetes Treatment of COVID per primary team, infectious disease and pulmonary. Conservative cardiac management. Subjective Date of service: 07/07/20 Interval history: Patient transferred to CCU overnight for respiratory failure. She is currently on bipap therapy. No cardiac events reported. 12 lead ECG is sinus bradycardia, rate 57, otherwise normal. Objective Vital Signs Temp Pulse Pulse Resp BP BP Pulse Ox 07/07/20 08:24 41 L 24 136/67 97 07/07/20 08:00 97.6 F 07/07/20 06:50 47 L 25 H 150/72 95 07/07/20 06:40 47 L 26 H 150/72 87 07/07/20 06:30 48 L 26 H 150/72 95 07/07/20 06:20 50 L 24 150/72 92 07/07/20 06:10 50 L 26 H 150/72 95 07/07/20 06:00 55 L 15 138/49 95 07/07/20 05:50 48 L 22 138/49 07/07/20 05:40 54 L 24 138/49 91 07/07/20 05:30 42 L 25 H 138/49 91 07/07/20 05:20 44 L 25 H 138/49 94 07/07/20 05:10 42 L 22 138/49 92 07/07/20 05:00 43 L 16 138/49 93 07/07/20 04:50 45 L 20 133/38 89 07/07/20 04:40 42 L 26 H 133/38 90 07/07/20 04:30 44 L 24 133/38 88 07/07/20 04:20 45 L 24 133/38 88 07/07/20 04:10 55 L 27 H 133/38 98 07/07/20 04:00 98.6 F 46 L 47 L 24 136/69 86 07/07/20 03:50 53 L 23 136/69 99 07/07/20 03:40 45 L 18 136/69 97 07/07/20 03:30 58 L 23 136/69 100 07/07/20 03:20 45 L 18 136/69 88 07/07/20 03:10 46 L 14 136/69 90 07/07/20 03:00 47 L 24 136/69 92 07/07/20 02:50 47 L 14 126/54 95 07/07/20 02:40 53 L 23 126/54 99 07/07/20 02:30 50 L 23 136/69 93 07/07/20 02:20 57 L 25 H 126/54 83 L 07/07/20 02:10 53 L 17 126/54 91 07/07/20 02:00 48 L 18 126/54 91 07/07/20 01:50 46 L 25 H 139/74 95 07/07/20 01:40 50 L 26 H 139/74 93 07/07/20 01:30 49 L 26 H 139/74 93 07/07/20 01:20 54 L 25 H 139/74 90 07/07/20 01:10 52 L 26 H 139/74 94 07/07/20 01:00 61 26 H 139/74 90 07/07/20 00:50 57 L 25 H 126/75 93 07/07/20 00:40 55 L 28 H 126/75 95 07/07/20 00:30 62 31 H 126/75 89 07/07/20 00:20 57 L 25 H 126/75 91 07/07/20 00:10 55 L 24 126/75 92 07/07/20 00:00 98.8 F 62 60 24 126/75 90 07/06/20 23:50 52 L 28 H 128/69 100 07/06/20 23:40 54 L 28 H 128/69 96 07/06/20 23:30 52 L 22 128/69 95 07/06/20 23:20 64 27 H 128/69 76 L 07/06/20 23:10 60 26 H 128/69 80 L 07/06/20 23:00 65 28 H 128/69 87 07/06/20 22:50 60 25 H 151/75 89 07/06/20 22:40 60 21 151/75 86 07/06/20 22:30 60 27 H 151/75 87 07/06/20 22:20 58 L 26 H 151/75 87 07/06/20 22:10 58 L 29 H 151/75 88 07/06/20 22:00 98.1 F 56 L 30 H 151/75 95 07/06/20 21:50 63 22 114/55 80 L 07/06/20 21:40 60 26 H 114/55 87 07/06/20 21:30 62 92 07/06/20 21:29 94 07/06/20 20:16 81 L 07/06/20 17:30 98.6 F 72 21 99/77 07/06/20 17:19 90 07/06/20 17:16 83/63 07/06/20 16:54 112/82 07/06/20 16:16 93 07/06/20 13:50 72 18 152/58 82 L 07/06/20 13:40 68 31 H 145/61 75 L 07/06/20 13:30 62 17 145/61 67 L 07/06/20 13:20 62 22 145/61 85 07/06/20 13:10 65 16 162/65 69 L 07/06/20 13:00 57 L 16 162/65 92 07/06/20 12:52 98 07/06/20 12:30 57 L 17 157/92 90 07/06/20 12:00 57 L 15 147/103 94 07/06/20 11:30 61 19 139/69 72 L 07/06/20 11:00 60 24 168/98 83 L 07/06/20 10:30 60 20 151/65 84 07/06/20 10:00 66 19 143/74 64 L - Physical Examination Narrative exam: Deferred due to isolation protocol General: Other (on Bipap) Cardiac: Positive: Bradycardia - Labs and Meds Cardiac Enzymes 07/06/20 07/06/20 07/07/20 Range/Units 15:44 15:44 00:22 Lactate Dehydrogenase 683 H (91-180) units/L CK-MB (CK-2) 1.6 1.6 (0.0-4.0) ng/mL CBC 07/07/20 Range/Units 02:42 WBC 9.3 (4.5-11.0) K/mm3 RBC 4.19 (3.65-5.03) M/mm3 Hgb 10.7 (10.1-14.3) gm/dl Hct 33.1 (30.3-42.9) % Plt Count 240 (140-440) K/mm3 Comprehensive Metabolic Panel 07/07/20 Range/Units 02:42 Sodium 139 (137-145) mmol/L Potassium 4.8 (3.6-5.0) mmol/L Chloride 101.6 (98-107) mmol/L Carbon Dioxide 24 (22-30) mmol/L BUN 47 H (7-17) mg/dL Creatinine 1.3 H (0.6-1.2) mg/dL Glucose 336 H (65-100) mg/dL Calcium 8.5 (8.4-10.2) mg/dL
[2020-07-07] MEDS: cefTRIAXone/NS 2 GM/100 ML 2 GM/100 ML BAG IV SCH (10:30)
[2020-07-07] MEDS: dexAMETHasone 4 MG/ML VIAL IV SCH (10:30)
[2020-07-07] MEDS: AZITHROMYCIN/NS 500 MG/250 ML 500 MG/250 ML BAG IV SCH (10:30)
[2020-07-07] MEDS: FAMOTIDINE 20 MG/2 ML INJ IV SCH (10:30)
[2020-07-07] MEDS ORDERED: FUROSEMIDE 40 MG/4 ML INJ IV ONE (11:00)
[2020-07-07] MEDS: INSULIN LISPRO 100 UNIT/ML SUB-Q SCH ×3 (11:39→19:28)
[2020-07-07] MEDS: hydrALAZINE 10 MG TAB PO SCH ×3 (11:39→23:02)
[2020-07-07] MEDS: SENNOSIDES 8.6 MG TAB PO SCH ×2 (11:40→21:36)
[2020-07-07] MEDS: DOCUSATE SODIUM 100 MG CAP PO SCH ×2 (11:40→21:36)
[2020-07-07] MEDS: INSULIN NPH/REGULAR 70/30 INJ SUB-Q SCH ×2 (11:40→17:30)
[2020-07-07] MEDS: ZINC SULFATE 220 MG CAP PO SCH (11:41)
[2020-07-07] MEDS: ASCORBIC ACID 500 MG TAB PO SCH (11:41)
--- NOTE | 2020-07-07 11:42 | Progress Note ---
Assessment and Plan Assessment and plan: Sepsis -Presented with hypoxia, tachypnea and acute hypoxic respiratory failure, acute kidney injury, pneumonia on CXR and COVID-19 infection -07/06 blood cultures x2 pending -Antibiotic therapy -Infectious disease consulted, appreciate recommendations COVID-19 infection -07/06 CXR shows diffuse hazy bilateral lung opacities concerning for viral infection, atypical pneumonia or pulmonary edema with no pleural effusions or pneumothorax -07/06 COVID-19 PCR positive -07/05 COVID-19 PCR at outside facility positive -Infectious disease and pulmonology consulted, appreciate recommendations -Contact/droplet isolation -Pulmonary hygiene -Supplemental oxygen as needed -Antibiotic therapy -Infectious disease initiated remdesivir therapy -Steroid therapy -OOB 3 times daily -Prone to sleep as needed -Anticoagulation per protocol -Vitamin C, vitamin D and zinc -SPO2 monitoring Bilateral pneumonia -07/06 CXR shows diffuse hazy bilateral lung opacities concerning for viral infection, atypical pneumonia or pulmonary edema with no pleural effusions or pneumothorax -Secondary to COVID-19 infection -Antibiotic therapy -Infectious disease consulted, appreciate recommendation -07/06 blood cultures x2 pending Elevated D-dimer -Admit D-dimer 1435 -07/06 nuclear medicine perfusion study shows low probability of pulmonary embolism -07/06 bilateral lower extremity Doppler ultrasound negative for DVT/SVT Acute hypoxic respiratory failure -Room air SPO2 75% and placed on high flow nasal cannula -Pulmonary consulted, patient recommendations -Steroid therapy -Supplemental oxygen as needed -Pulmonary hygiene -SPO2 monitoring -07/07 AB.4/32 point 5/62/20 2.3 with a base excess of -1 on 100% FiO2 via BiPAP -07/07 CXR: Persistent diffuse pulmonary process, pulmonary edema is a concern -07/07 lasix 40mg x1 -07/07 proBNP pending Elevated troponin/SB -Presented with a troponin of 0.034 -07/06 troponin less than 0.10 -Cardiology consulted, appreciate recommendations -EKG as needed -No complaints of chest pain -Cardiology believes elevated troponin is in setting of acute kidney injury Acute kidney injury -12/2016 creatinine/BUN 0.9/15 -Presented with a creatinine/BUN 1.6/45 -07/07 BUN/Cr 47/1.3 -Trend BMP -Urine studies pending -Consider nephrology consult if not improving Lactic acidosis -Presented with a lactic acid of 2.3 -Trend lactic acid -07/07 LA 1.6 Hypertension -Restart home antihypertensive regimen once obtained -Hydralazine as needed for SBP greater than 160 -Blood pressure monitoring per protocol Diabetes mellitus -07/06 hemoglobin A1c 11.8 -SSI -CC cardiac diet -Accu-Cheks AC at bedtime -Hypoglycemia protocol -07/06 70/30 initiated, titrate as needed DVT prophylaxis -Heparin subcu -GI prophylaxis -SCDs to bilateral lower extremities while in bed History Interval history: This is a 69-year-old Laotian female with limited Ugandan with hypertension, diabetes mellitus, hyperlipidemia who presented to the hospital on 07/06 via EMS with worsening subjective fevers, headache, body ache, dry cough, dyspnea on exertion, fatigue, headache and nausea since the last week end of May. Patient had a positive COVID-19 PCR on 07/05 as outside facility. Upon arrival to the emergency department patient was hypoxic on room air at 75% and tachypneic. Work-up in the emergency department with a CXR which showed bilateral pneumonia, lactic acidosis at 2.3, acute kidney injury at 1.6/45, elevated D-dimer, elevated troponin and slight hyponatremia 136. Patient received Rocephin, azithromycin and Decadron in the emergency department. Patient was admitted to the hospitalist service as a COVID-19 PUI, acute kidney injury, sepsis, lactic acidosis, and elevated D-dimer with consults to pulmonology and infectious disease. 07/06: COVID-19 PCR positive, azithromycin and Rocephin, Decadron and remdesivir therapy 07/07: Patient is on 100% FiO2 BiPAP therapy with SPO2 in the low 90s and high 80s, hypoxia and ABG, sinus bradycardia noted overnight. Repeat CXR shows persistent diffuse pulmonary process and pulmonary edema therefore she received 40 mg of Lasix x1 and a proBNP is pending per [facility] Hospitalist Physical - Constitutional Vitals: Temp Pulse Resp BP Pulse Ox 97.6 F 41 L 24 136/67 97 07/07/20 08:00 07/07/20 08:24 07/07/20 08:24 07/07/20 08:24 07/07/20 08:24 General appearance: Present: mild distress - EENT Eyes: Present: EOM intact ENT: clear oral mucosa - Neck Neck: Present: normal ROM - Respiratory Respiratory effort: normal Respiratory: bilateral: diminished - Cardiovascular Rhythm: regular Heart Sounds: Present: S1 & S2. Absent: systolic murmur, diastolic murmur - Extremities Extremities: no ischemia, pulses intact, pulses symmetrical Peripheral Pulses: within normal limits - Abdominal General gastrointestinal: soft, non-tender, non-distended - Integumentary Integumentary: Present: warm, dry - Psychiatric Psychiatric: cooperative - Neurologic Neurologic: CNII-XII intact, no focal deficits, moves all extremities - Allied Health Allied health notes reviewed: nursing HEART Score - HEART Score Troponin: Troponin T < 0.010 ng/mL (0.00-0.029) 07/07/20 00:22 Results - Labs CBC & Chem 7: 07/07/20 02:42 07/07/20 02:42 Labs: Laboratory Last Values WBC 9.3 K/mm3 (4.5-11.0) 07/07/20 02:42 RBC 4.19 M/mm3 (3.65-5.03) 07/07/20 02:42 Hgb 10.7 gm/dl (10.1-14.3) 07/07/20 02:42 Hct 33.1 % (30.3-42.9) 07/07/20 02:42 MCV 79 fl (79-97) 07/07/20 02:42 MCH 26 pg (28-32) L 07/07/20 02:42 MCHC 32 % (30-34) 07/07/20 02:42 RDW 13.6 % (13.2-15.2) 07/07/20 02:42 Plt Count 240 K/mm3 (140-440) 07/07/20 02:42 Add Manual Diff Complete 07/07/20 02:42 Total Counted 100 07/07/20 02:42 Seg Neuts % (Manual) 85.0 % (40.0-70.0) H 07/07/20 02:42 Band Neutrophils % 4.0 % 07/07/20 02:42 Lymphocytes % (Manual) 6.0 % (13.4-35.0) L 07/07/20 02:42 Monocytes % (Manual) 5.0 % (0.0-7.3) 07/07/20 02:42 Metamyelocytes % 3.0 % 07/06/20 08:50 Nucleated RBC % Not Reportable 07/07/20 02:42 Seg Neutrophils # Man 7.9 K/mm3 (1.8-7.7) H 07/07/20 02:42 Band Neutrophils # 0.4 K/mm3 07/07/20 02:42 Lymphocytes # (Manual) 0.6 K/mm3 (1.2-5.4) L 07/07/20 02:42 Abs React Lymphs (Man) 0.0 K/mm3 07/07/20 02:42 Monocytes # (Manual) 0.5 K/mm3 (0.0-0.8) 07/07/20 02:42 Eosinophils # (Manual) 0.0 K/mm3 (0.0-0.4) 07/07/20 02:42 Basophils # (Manual) 0.0 K/mm3 (0.0-0.1) 07/07/20 02:42 Metamyelocytes # 0.0 K/mm3 07/07/20 02:42 Myelocytes # 0.0 K/mm3 07/07/20 02:42 Promyelocytes # 0.0 K/mm3 07/07/20 02:42 Blast Cells # 0.0 K/mm3 07/07/20 02:42 WBC Morphology Not Reportable 07/07/20 02:42 Hypersegmented Neuts Not Reportable 07/07/20 02:42 Hyposegmented Neuts Not Reportable 07/07/20 02:42 Hypogranular Neuts Not Reportable 07/07/20 02:42 Smudge Cells Not Reportable 07/07/20 02:42 Toxic Granulation Not Reportable 07/07/20 02:42 Toxic Vacuolation Not Reportable 07/07/20 02:42 Dohle Bodies Not Reportable 07/07/20 02:42 Pelger-Huet Anomaly Not Reportable 07/07/20 02:42 Rudy Rods Not Reportable 07/07/20 02:42 Platelet Estimate Consistent w auto 07/07/20 02:42 Clumped Platelets Not Reportable 07/07/20 02:42 Plt Clumps, EDTA Not Reportable 07/07/20 02:42 Large Platelets Not Reportable 07/07/20 02:42 Giant Platelets Not Reportable 07/07/20 02:42 Platelet Satelliting Not Reportable 07/07/20 02:42 Plt Morphology Comment Not Reportable 07/07/20 02:42 RBC Morphology Not Reportable 07/07/20 02:42 Dimorphic RBCs Not Reportable 07/07/20 02:42 Polychromasia Rare 07/07/20 02:42 Hypochromasia 1+ 07/07/20 02:42 Poikilocytosis Not Reportable 07/07/20 02:42 Anisocytosis Few 07/07/20 02:42 Microcytosis Not Reportable 07/07/20 02:42 Macrocytosis Not Reportable 07/07/20 02:42 Spherocytes Not Reportable 07/07/20 02:42 Pappenheimer Bodies Not Reportable 07/07/20 02:42 Sickle Cells Not Reportable 07/07/20 02:42 Target Cells Not Reportable 07/07/20 02:42 Tear Drop Cells Rare 07/07/20 02:42 Ovalocytes Few 07/07/20 02:42 Helmet Cells Not Reportable 07/07/20 02:42 [place] Bodies Not Reportable 07/07/20 02:42 [place] Rings Not Reportable 07/07/20 02:42 [place] Cells Not Reportable 07/07/20 02:42 Bite Cells Not Reportable 07/07/20 02:42 Crenated Cell Not Reportable 07/07/20 02:42 Elliptocytes Not Reportable 07/07/20 02:42 Acanthocytes (Spur) Not Reportable 07/07/20 02:42 Rouleaux Not Reportable 07/07/20 02:42 Hemoglobin C Crystals Not Reportable 07/07/20 02:42 Schistocytes Not Reportable 07/07/20 02:42 Malaria parasites Not Reportable 07/07/20 02:42 Shreyas Bodies Not Reportable 07/07/20 02:42 Hem Pathologist Commnt No 07/07/20 02:42 PT 14.7 Sec. (12.2-14.9) 07/06/20 08:50 INR 1.15 (0.87-1.13) H 07/06/20 08:50 APTT 25.9 Sec. (24.2-36.6) 07/06/20 08:50 D-Dimer 1435.13 ng/mlDDU (0-234) H 07/06/20 08:50 ABG pH 7.455 (7.320-7.450) H 07/07/20 02:19 POC ABG pCO2 32.5 mmHg (32.0-48.0) 07/07/20 02:19 POC ABG pO2 62.0 mmHg (83-108) L 07/07/20 02:19 POC ABG HCO3 22.3 07/07/20 02:19 POC ABG Base Excess -1.0 07/07/20 02:19 ABG Hemoglobin 10.8 (12.0-17.5) L 07/07/20 02:19 ABG Oxyhemoglobin 88.3 (94-98) L 07/07/20 02:19 ABG Methemoglobin 0.3 (0.0-1.5) 07/07/20 02:19 ABG Sodium 137.6 mmol/L (136.0-145.0) 07/07/20 02:19 ABG Potassium 4.1 mmol/L (3.40-4.50) 07/07/20 02:19 ABG Chloride 106.0 mmol/L (98-107) 07/07/20 02:19 ABG Glucose 330 mg/dL (65-95) H 07/07/20 02:19 Carboxyhemoglobin 0.2 (0.5-1.5) L 07/07/20 02:19 FiO2 100 07/07/20 02:19 Sodium 139 mmol/L (137-145) 07/07/20 02:42 Potassium 4.8 mmol/L (3.6-5.0) 07/07/20 02:42 Chloride 101.6 mmol/L (98-107) 07/07/20 02:42 Carbon Dioxide 24 mmol/L (22-30) 07/07/20 02:42 Anion Gap 18 mmol/L 07/07/20 02:42 BUN 47 mg/dL (7-17) H 07/07/20 02:42 Creatinine 1.3 mg/dL (0.6-1.2) H 07/07/20 02:42 Estimated GFR 40 ml/min 07/07/20 02:42 BUN/Creatinine Ratio 36 % 07/07/20 02:42 Glucose 336 mg/dL (65-100) H 07/07/20 02:42 POC Glucose 289 mg/dL (70-105) H 07/07/20 07:54 Hemoglobin A1c 11.8 % (4-6) H 07/06/20 15:44 Lactic Acid 1.60 mmol/L (0.7-2.0) 07/07/20 08:55 Calcium 8.5 mg/dL (8.4-10.2) 07/07/20 02:42 Ferritin 1158.0 ng/mL (10.0-200.0) H 07/06/20 08:50 Total Bilirubin 0.70 mg/dL (0.1-1.2) 07/06/20 08:50 AST 30 units/L (5-40) 07/06/20 08:50 ALT 32 units/L (7-56) 07/06/20 08:50 Alkaline Phosphatase 130 units/L (35-129) H 07/06/20 08:50 Lactate Dehydrogenase 683 units/L (91-180) H 07/06/20 15:44 Total Creatine Kinase 47 units/L (30-135) 07/07/20 00:22 CK-MB (CK-2) 1.6 ng/mL (0.0-4.0) 07/07/20 00:22 CK-MB (CK-2) Rel Index 3.4 (0-4) 07/07/20 00:22 Troponin T < 0.010 ng/mL (0.00-0.029) 07/07/20 00:22 C-Reactive Protein 10.40 mg/dL (0.00-1.30) H 07/06/20 08:50 Total Protein 7.3 g/dL (6.3-8.2) 07/06/20 08:50 Albumin 3.2 g/dL (3.9-5) L 07/06/20 08:50 Albumin/Globulin Ratio 0.8 % 07/06/20 08:50 Procalcitonin 11.26 ng/mL (<0.15) 07/06/20 08:50 Arterial Blood Glucose 330 mg/dL (65-95) H 07/07/20 02:19 Arterial Blood Ionized Calcium 4.7 mg/dL (4.6-5.3) 07/07/20 02:19 Urine Color Yellow (Yellow) 07/07/20 03:35 Urine Turbidity Clear (Clear) 07/07/20 03:35 Urine pH 5.0 (5.0-7.0) 07/07/20 03:35 Ur Specific [place] 1.026 (1.003-1.030) 07/07/20 03:35 Urine Protein 30 mg/dl mg/dL (Negative) 07/07/20 03:35 Urine Glucose (UA) >=500 mg/dL (Negative) 07/07/20 03:35 Urine Ketones Neg mg/dL (Negative) 07/07/20 03:35 Urine Blood Neg (Negative) 07/07/20 03:35 Urine Nitrite Neg (Negative) 07/07/20 03:35 Urine Bilirubin Neg (Negative) 07/07/20 03:35 Urine Urobilinogen 2.0 mg/dL (<2.0) 07/07/20 03:35 Ur Leukocyte Esterase Neg (Negative) 07/07/20 03:35 Urine WBC (Auto) < 1.0 /HPF (0.0-6.0) 07/07/20 03:35 Urine RBC (Auto) 0.0 /HPF (0.0-6.0) 07/07/20 03:35 U Epithel Cells (Auto) < 1.0 /HPF (0-13.0) 07/07/20 03:35 Urine Bacteria (Auto) 1+ /HPF (Negative) 07/07/20 03:35 Urine Osmolality 731 Mosm/kg 07/07/20 03:35 Urine Sodium 54 mmol/L 07/07/20 03:35 Coronavirus (PCR) Positive (Negative) A 07/06/20 09:26 Microbiology: Microbiology 07/06/20 08:50 Peripheral/Venous Blood Culture - Preliminary NO GROWTH AFTER 24 HOURS 07/06/20 08:50 Peripheral/Venous Blood Culture - Preliminary NO GROWTH AFTER 24 HOURS Beal/IV: Voiding Method External Female Catheter Active Medications - Current Medications Current Medications: Generic Name Dose Route Start Last Admin Trade Name Freq PRN Reason Stop Dose Admin Acetaminophen 650 mg 07/06/20 11:01 Acetaminophen 325 Mg Tab PO Q4H PRN Pain MILD(1-3)/Fever >100.5/OHARA Al Hydrox/Mg Hydrox/Simethicone 30 ml 07/06/20 11:01 Alum-Mag Hydroxide-Simethicone 649-650-47kg/5ml Oral Liqd 30 Ml PO Q4H PRN Indigestion Ascorbic Acid 500 mg 07/06/20 16:00 07/06/20 18:24 Ascorbic Acid 500 Mg Tab PO 500 mg QDAY MITALI Administration Dexamethasone 6 mg 07/07/20 10:00 Dexamethasone 4 Mg/Ml Vial IV 07/15/20 10:01 Q24HR [facility] Dextrose 50 ml 07/06/20 11:01 Dextrose 50% In Water (25gm) 50 Ml Syringe IV Q30MIN PRN Hypoglycemia Protocol Docusate Sodium 100 mg 07/06/20 22:00 07/06/20 22:41 Docusate Sodium 100 Mg Cap PO Not Given BID [facility] Famotidine 20 mg 07/07/20 10:00 Famotidine 20 Mg/2 Ml Inj IV DAILY [facility] Heparin Sodium (Porcine) 7,500 unit 07/07/20 14:00 Heparin 5,000 Unit/1 Ml Vial SUB-Q Q8HR [facility] Hydralazine HCl 10 mg 07/07/20 07:28 Hydralazine 20 Mg/1 Ml Inj IV Q4HR PRN Hypertension Hydralazine HCl 10 mg 07/07/20 08:00 Hydralazine 10 Mg Tab PO Q8HR [facility] Ceftriaxone Sodium 2 gm in 100 mls @ 200 mls/hr 07/07/20 10:00 Rocephin/Ns 2 Gm/100 Ml IV Q24HR [facility] Protocol REMDESIVIR 100 mg/ Sodium 250 mls @ 500 mls/hr 07/07/20 21:00 Chloride IV 07/10/20 21:29 Q24HR@2100 [facility] Azithromycin 500 mg in 250 mls @ 250 mls/hr 07/07/20 10:00 Zithromax/Ns IV 07/11/20 09:59 Q24H [facility] Insulin Human Isoph/Insulin Regular 5 unit 07/07/20 09:00 Insulin Nph/Regular 70/30 Inj SUB-Q BIDDIAB [facility] Insulin Human Lispro 0 unit 07/07/20 09:00 Insulin Lispro 100 Unit/Ml SUB-Q Q6HR [facility] Protocol Ondansetron HCl 4 mg 07/06/20 11:01 Ondansetron 4 Mg/2 Ml Inj IV Q8H PRN Nausea And Vomiting Oxycodone/Acetaminophen 1 tab 07/06/20 11:01 Oxycodone /Acetaminophen 5-325mg Tab PO Q6H PRN Pain, Moderate (4-6) Senna 8.6 mg 07/06/20 22:00 07/06/20 22:41 Sennosides 8.6 Mg Tab PO Not Given Q12HR MITALI Sodium Chloride 10 ml 07/06/20 22:00 07/06/20 22:41 Sodium Chloride 0.9% 10 Ml Flush Syringe IV 10 ml BID MITALI Administration Sodium Chloride 10 ml 07/06/20 11:01 Sodium Chloride 0.9% 10 Ml Flush Syringe IV PRN PRN LINE FLUSH Sodium Chloride 50 ml 07/06/20 16:00 07/06/20 22:41 Sodium Chloride 0.9% 50 Ml Ivpb IV 07/09/20 21:01 Not Given Q24HR@2100 MITALI Zinc Sulfate 220 mg 07/06/20 16:00 07/06/20 18:24 Zinc Sulfate 220 Mg Cap PO 220 mg QDAY MITALI Administration
--- NOTE | 2020-07-07 11:47 | Consultation ---
History of Present Illness Consult date: 07/07/20 Reason for consult: hypoxemia, other (COVID 19) History of present illness: 69 y/o female admitted with COVID 19 pneumonia. Unfortunately oxygen requirements increased overnight and patient was transferred to ICU for further monitoring. No physician note of this, only nursing notes. I was called around 0400 with several blood gases. Currently patient on bipap 15/10 100%, sats ranging from 88-100. No distress noted. While asleep, heart is can drop as low as the 30's but BP remains stable. Pulmonary consulted for respiratory failure. Patient is covid positive and is currently on steroids and remdesivir. Past History Past Medical History: diabetes, hypertension, hyperlipidemia Past Surgical History: cholecystectomy (2018) Social history: , lives with family, full code. denies: smoking, alcohol abuse, prescription drug abuse, IV drug use Family history: no significant family history Medications and Allergies Allergies Allergy/AdvReac Type Severity Reaction Status Date / Time No Known Allergies Allergy Unverified 08/20/15 08:58 Home Medications Medication Instructions Recorded Confirmed Last Taken Type Unobtainable 07/06/20 07/06/20 Unknown History Active Meds: Active Medications Acetaminophen (Acetaminophen 325 Mg Tab) 650 mg PO Q4H PRN PRN Reason: Pain MILD(1-3)/Fever >100.5/OHARA Al Hydrox/Mg Hydrox/Simethicone (Alum-Mag Hydroxide-Simethicone [id number]/5ml Oral Liqd 30 Ml) 30 ml PO Q4H PRN PRN Reason: Indigestion Ascorbic Acid (Ascorbic Acid 500 Mg Tab) 500 mg PO QDAY [facility] Last Admin: 07/06/20 18:24 Dose: 500 mg Documented by: Dexamethasone (Dexamethasone 4 Mg/Ml Vial) 6 mg IV Q24HR [facility] Stop: 07/15/20 10:01 Dextrose (Dextrose 50% In Water (25gm) 50 Ml Syringe) 50 ml IV Q30MIN PRN; Protocol PRN Reason: Hypoglycemia Docusate Sodium (Docusate Sodium 100 Mg Cap) 100 mg PO BID [facility] Last Admin: 07/06/20 22:41 Dose: Not Given Documented by: Famotidine (Famotidine 20 Mg/2 Ml Inj) 20 mg IV DAILY [facility] Heparin Sodium (Porcine) (Heparin 5,000 Unit/1 Ml Vial) 7,500 unit SUB-Q Q8HR [facility] Hydralazine HCl (Hydralazine 20 Mg/1 Ml Inj) 10 mg IV Q4HR PRN PRN Reason: Hypertension Hydralazine HCl (Hydralazine 10 Mg Tab) 10 mg PO Q8HR [facility] Ceftriaxone Sodium (Rocephin/Ns 2 Gm/100 Ml) 2 gm in 100 mls @ 200 mls/hr IV Q24HR [facility]; Protocol REMDESIVIR 100 mg/ Sodium (Chloride) 250 mls @ 500 mls/hr IV Q24HR@2100 [facility] Stop: 07/10/20 21:29 Azithromycin (Zithromax/Ns) 500 mg in 250 mls @ 250 mls/hr IV Q24H [facility] Stop: 07/11/20 09:59 Insulin Human Isoph/Insulin Regular (Insulin Nph/Regular 70/30 Inj) 5 unit SUB- Q BIDDIAB [facility] Insulin Human Lispro (Insulin Lispro 100 Unit/Ml) 0 unit SUB-Q Q6HR [facility]; Protocol Ondansetron HCl (Ondansetron 4 Mg/2 Ml Inj) 4 mg IV Q8H PRN PRN Reason: Nausea And Vomiting Oxycodone/Acetaminophen (Oxycodone /Acetaminophen 5-325mg Tab) 1 tab PO Q6H PRN PRN Reason: Pain, Moderate (4-6) Senna (Sennosides 8.6 Mg Tab) 8.6 mg PO Q12HR [facility] Last Admin: 07/06/20 22:41 Dose: Not Given Documented by: Sodium Chloride (Sodium Chloride 0.9% 10 Ml Flush Syringe) 10 ml IV BID [facility] Last Admin: 07/06/20 22:41 Dose: 10 ml Documented by: Sodium Chloride (Sodium Chloride 0.9% 10 Ml Flush Syringe) 10 ml IV PRN PRN PRN Reason: LINE FLUSH Sodium Chloride (Sodium Chloride 0.9% 50 Ml Ivpb) 50 ml IV Q24HR@2100 [facility] Stop: 07/09/20 21:01 Last Admin: 07/06/20 22:41 Dose: Not Given Documented by: Zinc Sulfate (Zinc Sulfate 220 Mg Cap) 220 mg PO QDAY [facility] Last Admin: 07/06/20 18:24 Dose: 220 mg Documented by: Physical Examination Vital signs: Vital Signs Pulse Resp Pulse Ox 68 27 H 80 L 07/06/20 08:16 07/06/20 08:16 07/06/20 08:16 General appearance: no acute distress, alert, other (full face mask on for bipap therapy.) Eyes: non-icteric Neck: supple Ascultation: Bilateral: diminished breath sounds Results - Laboratory Findings CBC and BMP: 07/07/20 02:42 07/07/20 02:42 ABG ABG pH 7.455 (7.320-7.450) H 07/07/20 02:19 POC ABG pCO2 32.5 mmHg (32.0-48.0) 07/07/20 02:19 POC ABG pO2 62.0 mmHg (83-108) L 07/07/20 02:19 POC ABG HCO3 22.3 07/07/20 02:19 PT/INR, D-dimer PT 14.7 Sec. (12.2-14.9) 07/06/20 08:50 INR 1.15 (0.87-1.13) H 07/06/20 08:50 D-Dimer 1435.13 ng/mlDDU (0-234) H 07/06/20 08:50 Abnormal lab findings: Abnormal Labs 07/06/20 07/06/20 07/06/20 08:50 08:50 08:50 MCV 78 L MCH 26 L Seg Neuts % (Manual) 80.0 H Lymphocytes % (Manual) 10.0 L Nucleated RBC % 4.0 H Seg Neutrophils # Man Lymphocytes # (Manual) 0.9 L INR 1.15 H D-Dimer 1435.13 H ABG pH POC ABG pCO2 POC ABG pO2 ABG Hemoglobin ABG Oxyhemoglobin ABG Glucose Carboxyhemoglobin Sodium 136 L BUN 45 H Creatinine 1.6 H Glucose 385 H POC Glucose Hemoglobin A1c Lactic Acid Ferritin Alkaline Phosphatase 130 H Lactate Dehydrogenase Troponin T 0.034 H C-Reactive Protein Albumin 3.2 L Arterial Blood Glucose Coronavirus (PCR) 07/06/20 07/06/20 07/06/20 08:50 08:50 08:50 MCV MCH Seg Neuts % (Manual) Lymphocytes % (Manual) Nucleated RBC % Seg Neutrophils # Man Lymphocytes # (Manual) INR D-Dimer ABG pH POC ABG pCO2 POC ABG pO2 ABG Hemoglobin ABG Oxyhemoglobin ABG Glucose Carboxyhemoglobin Sodium BUN Creatinine Glucose 385 H POC Glucose Hemoglobin A1c Lactic Acid 2.30 H* Ferritin 1158.0 H Alkaline Phosphatase Lactate Dehydrogenase 471 H Troponin T C-Reactive Protein 10.40 H Albumin Arterial Blood Glucose Coronavirus (PCR) 07/06/20 07/06/20 07/06/20 09:26 15:44 15:44 MCV MCH Seg Neuts % (Manual) Lymphocytes % (Manual) Nucleated RBC % Seg Neutrophils # Man Lymphocytes # (Manual) INR D-Dimer ABG pH POC ABG pCO2 POC ABG pO2 ABG Hemoglobin ABG Oxyhemoglobin ABG Glucose Carboxyhemoglobin Sodium BUN Creatinine Glucose POC Glucose Hemoglobin A1c 11.8 H Lactic Acid 2.40 H* Ferritin Alkaline Phosphatase Lactate Dehydrogenase Troponin T C-Reactive Protein Albumin Arterial Blood Glucose Coronavirus (PCR) Positive A 07/06/20 07/06/20 07/06/20 15:44 17:40 20:35 MCV MCH Seg Neuts % (Manual) Lymphocytes % (Manual) Nucleated RBC % Seg Neutrophils # Man Lymphocytes # (Manual) INR D-Dimer ABG pH 7.455 H POC ABG pCO2 30.9 L POC ABG pO2 50.0 L ABG Hemoglobin 11.1 L ABG Oxyhemoglobin 80.6 L ABG Glucose 357 H Carboxyhemoglobin 0.3 L Sodium BUN Creatinine Glucose POC Glucose 324 H Hemoglobin A1c Lactic Acid Ferritin Alkaline Phosphatase Lactate Dehydrogenase 683 H Troponin T C-Reactive Protein Albumin Arterial Blood Glucose 357 H Coronavirus (PCR) 07/06/20 07/06/20 07/07/20 21:49 23:52 02:19 MCV MCH Seg Neuts % (Manual) Lymphocytes % (Manual) Nucleated RBC % Seg Neutrophils # Man Lymphocytes # (Manual) INR D-Dimer ABG pH 7.455 H POC ABG pCO2 31.9 L POC ABG pO2 50.7 L 62.0 L ABG Hemoglobin 10.8 L 10.8 L ABG Oxyhemoglobin 80.2 L 88.3 L ABG Glucose 358 H 330 H Carboxyhemoglobin 0.2 L 0.2 L Sodium BUN Creatinine Glucose POC Glucose 336 H Hemoglobin A1c Lactic Acid Ferritin Alkaline Phosphatase Lactate Dehydrogenase Troponin T C-Reactive Protein Albumin Arterial Blood Glucose 358 H 330 H Coronavirus (PCR) 07/07/20 07/07/20 07/07/20 02:42 02:42 07:54 MCV MCH 26 L Seg Neuts % (Manual) 85.0 H Lymphocytes % (Manual) 6.0 L Nucleated RBC % Seg Neutrophils # Man 7.9 H Lymphocytes # (Manual) 0.6 L INR D-Dimer ABG pH POC ABG pCO2 POC ABG pO2 ABG Hemoglobin ABG Oxyhemoglobin ABG Glucose Carboxyhemoglobin Sodium BUN 47 H Creatinine 1.3 H Glucose 336 H POC Glucose 289 H Hemoglobin A1c Lactic Acid Ferritin Alkaline Phosphatase Lactate Dehydrogenase Troponin T C-Reactive Protein Albumin Arterial Blood Glucose Coronavirus (PCR) - Diagnostic Findings Chest x-ray: image reviewed (Cardiomegaly with some prominent interstitial filling) Assessment and Plan 69 y/o female, covid positive admitted with acute respiratory failure. 1. Will check bnP 2. Agree with steroids and remdesivir 3. Lasix 40mg IV x1 given today 4. Continue bipap for now, wean for sats >88% but wait a few hours until lasix is given. 5. PRone is possible 6. Guarded prognosis. If BNP elevated would need echo 7. Spoke with nursing about bradycardia, sinus on EKG, but if persistently low in 30's please repeat EKG
[2020-07-07] MEDS ORDERED: SODIUM CHLORIDE 0.9% 500 ML 500 ML ONE (11:49)
--- NOTE | 2020-07-07 12:26 | Progress Note ---
Assessment and Plan Cultures: SARS CoV2 PCR: Positive 07/06/2020 blood culture: No growth A/P: 69-year-old female with hypertension, diabetes: #Sepsis: Secondary to COVID-19 #Bilateral pneumonia: Secondary to COVID-19 #Acute hypoxic respiratory failure: On HFNC/BiPAP #CARMEN: Monitor renal function #Elevated D-dimer: VTE evaluation negative. Recs: -continue steroids: IV/PO Dexamethasone 6 mg daily x 10 days -Continue empiric antibiotics due to elevated procalcitonin -continue IV remdesivir, D2 -prophylactic anticoagulation based on d-dimer per hospital protocol -trend ferritin, LDH, d-dimer, CRP every 2-3 days for risk stratification and to assess disease progression Yuliet Leija MD, FACP [facility] ([facility] O: [phone] F: [phone] Subjective Date of service: 07/07/20 Interval history: Afebrile. On BiPAP. Moved to ICU. Objective - Exam Narrative Exam: Physical Exam (reviewed in chart to minimize risk of transmission) Constitutional: deferred Head, Ears, Nose: deferred Eyes: deferred Neck: deferred Oral: deferred Cardiovascular: deferred Respiratory: deferred GI: deferred Musculoskeletal: deferred Skin: deferred Hem/Lymphatic: deferred Psych: deferred Neurological: deferred - Constitutional Vitals: Vital Signs Temp Pulse Resp BP Pulse Ox 97.6 F 41 L 24 136/67 97 07/07/20 08:00 07/07/20 08:24 07/07/20 08:24 07/07/20 08:24 07/07/20 08:24 Temperature -Last 24 Hours Temperature 97.6 F Temperature 98.6 F Temperature 98.8 F Temperature 98.1 F Temperature 98.6 F - Labs CBC & Chem 7: 07/07/20 02:42 07/07/20 02:42 Labs: Abnormal lab results 07/06/20 07/06/20 07/06/20 Range/Units 09:26 15:44 15:44 MCH (28-32) pg Seg Neuts % (Manual) (40.0-70.0) % Lymphocytes % (Manual) (13.4-35.0) % Seg Neutrophils # Man (1.8-7.7) K/mm3 Lymphocytes # (Manual) (1.2-5.4) K/mm3 ABG pH (7.320-7.450) POC ABG pCO2 (32.0-48.0) mmHg POC ABG pO2 (83-108) mmHg ABG Hemoglobin (12.0-17.5) ABG Oxyhemoglobin (94-98) ABG Glucose (65-95) mg/dL Carboxyhemoglobin (0.5-1.5) BUN (7-17) mg/dL Creatinine (0.6-1.2) mg/dL Glucose (65-100) mg/dL POC Glucose (70-105) mg/dL Hemoglobin A1c 11.8 H (4-6) % Lactic Acid 2.40 H* (0.7-2.0) mmol/L Lactate Dehydrogenase (91-180) units/L Arterial Blood Glucose (65-95) mg/dL Coronavirus (PCR) Positive A (Negative) 07/06/20 07/06/20 07/06/20 Range/Units 15:44 17:40 20:35 MCH (28-32) pg Seg Neuts % (Manual) (40.0-70.0) % Lymphocytes % (Manual) (13.4-35.0) % Seg Neutrophils # Man (1.8-7.7) K/mm3 Lymphocytes # (Manual) (1.2-5.4) K/mm3 ABG pH 7.455 H (7.320-7.450) POC ABG pCO2 30.9 L (32.0-48.0) mmHg POC ABG pO2 50.0 L (83-108) mmHg ABG Hemoglobin 11.1 L (12.0-17.5) ABG Oxyhemoglobin 80.6 L (94-98) ABG Glucose 357 H (65-95) mg/dL Carboxyhemoglobin 0.3 L (0.5-1.5) BUN (7-17) mg/dL Creatinine (0.6-1.2) mg/dL Glucose (65-100) mg/dL POC Glucose 324 H (70-105) mg/dL Hemoglobin A1c (4-6) % Lactic Acid (0.7-2.0) mmol/L Lactate Dehydrogenase 683 H (91-180) units/L Arterial Blood Glucose 357 H (65-95) mg/dL Coronavirus (PCR) (Negative) 07/06/20 07/06/20 07/07/20 Range/Units 21:49 23:52 02:19 MCH (28-32) pg Seg Neuts % (Manual) (40.0-70.0) % Lymphocytes % (Manual) (13.4-35.0) % Seg Neutrophils # Man (1.8-7.7) K/mm3 Lymphocytes # (Manual) (1.2-5.4) K/mm3 ABG pH 7.455 H (7.320-7.450) POC ABG pCO2 31.9 L (32.0-48.0) mmHg POC ABG pO2 50.7 L 62.0 L (83-108) mmHg ABG Hemoglobin 10.8 L 10.8 L (12.0-17.5) ABG Oxyhemoglobin 80.2 L 88.3 L (94-98) ABG Glucose 358 H 330 H (65-95) mg/dL Carboxyhemoglobin 0.2 L 0.2 L (0.5-1.5) BUN (7-17) mg/dL Creatinine (0.6-1.2) mg/dL Glucose (65-100) mg/dL POC Glucose 336 H (70-105) mg/dL Hemoglobin A1c (4-6) % Lactic Acid (0.7-2.0) mmol/L Lactate Dehydrogenase (91-180) units/L Arterial Blood Glucose 358 H 330 H (65-95) mg/dL Coronavirus (PCR) (Negative) 07/07/20 07/07/20 07/07/20 Range/Units 02:42 02:42 07:54 MCH 26 L (28-32) pg Seg Neuts % (Manual) 85.0 H (40.0-70.0) % Lymphocytes % (Manual) 6.0 L (13.4-35.0) % Seg Neutrophils # Man 7.9 H (1.8-7.7) K/mm3 Lymphocytes # (Manual) 0.6 L (1.2-5.4) K/mm3 ABG pH (7.320-7.450) POC ABG pCO2 (32.0-48.0) mmHg POC ABG pO2 (83-108) mmHg ABG Hemoglobin (12.0-17.5) ABG Oxyhemoglobin (94-98) ABG Glucose (65-95) mg/dL Carboxyhemoglobin (0.5-1.5) BUN 47 H (7-17) mg/dL Creatinine 1.3 H (0.6-1.2) mg/dL Glucose 336 H (65-100) mg/dL POC Glucose 289 H (70-105) mg/dL Hemoglobin A1c (4-6) % Lactic Acid (0.7-2.0) mmol/L Lactate Dehydrogenase (91-180) units/L Arterial Blood Glucose (65-95) mg/dL Coronavirus (PCR) (Negative)
[2020-07-07] MEDS ORDERED: INSULIN REGULAR, HUMAN 100 UNITS/1 ML ONE (13:41)
[2020-07-07] MEDS: HEPARIN 5,000 UNIT/1 ML VIAL SUB-Q SCH ×2 (17:00→21:36)
[2020-07-07] MEDS: SODIUM CHLORIDE 0.9% 50 ML IVPB IV SCH (21:35)
[2020-07-07] MEDS: REMDESIVIR 100 MG in SODIUM CHLORIDE 0.9% 250ML 250 ML IV SCH (21:36)
[2020-07-07] MEDS ORDERED: ALBUTEROL 2.5 MG/3 ML NEBU IH ONE (23:30)
[2020-07-08] MEDS: INSULIN LISPRO 100 UNIT/ML SUB-Q SCH ×6 (00:06→23:47)
[2020-07-08] MEDS ORDERED: ACETAMINOPHEN 650 MG RECT SUPP PR PRN (01:34)
--- NOTE | 2020-07-08 03:07 | XRay Report ---
CHEST 1 VIEW 07/08/2020 1:02 AM INDICATION / CLINICAL INFORMATION: hypoxia. COMPARISON: 07/07/20 FINDINGS: SUPPORT DEVICES: None. HEART / MEDIASTINUM: Stable. LUNGS / PLEURA: Slight interval worsening of bibasilar pulmonary opacities. No pneumothorax. ADDITIONAL FINDINGS: No significant additional findings. IMPRESSION: 1. Interval worsening. Signer Name: Valeriano Butts MD Signed: 07/08/2020 3:03 AM Workstation Name: [id number]
[2020-07-08 05:47] LABS: Basophils % (Auto) 0.1 % (0.0-1.8); Hematocrit 34.1 % (30.3-42.9); Hemoglobin 10.8 gm/dl (10.1-14.3); Lymphocytes # (Auto) 0.6 K/mm3 (1.2-5.4); Lymphocytes % (Auto) 7.9 % (13.4-35.0); Mean Corpuscular HGB Conc 32 % (30-34); Mean Corpuscular Volume 79 fl (79-97); Monocytes # (Auto) 0.5 K/mm3 (0.0-0.8); Monocytes % (Auto) 6.4 % (0.0-7.3); Platelet Count 250 K/mm3 (140-440); Red Cell Distribution Width 13.7 % (13.2-15.2)
[2020-07-08] MEDS: hydrALAZINE 10 MG TAB PO SCH ×3 (06:01→22:41)
[2020-07-08 06:02] LABS: Albumin 3.2 g/dL (3.9-5); C-Reactive Protein 4.3 mg/dL (0.00-1.30); Calcium 8.5 mg/dL (8.4-10.2)
[2020-07-08] MEDS: HEPARIN 5,000 UNIT/1 ML VIAL SUB-Q SCH ×3 (06:02→22:11)
[2020-07-08] MEDS: INSULIN NPH/REGULAR 70/30 INJ SUB-Q SCH ×3 (08:14→18:18)
--- NOTE | 2020-07-08 09:37 | Progress Note ---
Assessment and Plan Non-specific elevated troponin likely in the setting of ARF 12 lead ECG is sinus bradycardia, rate 57, otherwise normal. Sinus bradycardia -pt is on Remdesivir COVID 19 viral pneumonia Respiratory failure Hypertension Diabetes Will check a TSH. Otherwise, conservative cardiac management. Subjective Date of service: 07/08/20 Interval history: Currently, she is sinus bradycardia, rate ranging in the 50s on telemetry. No pauses or bradyarrhythmias seen. Objective Vital Signs Temp Pulse Pulse Resp BP Pulse Ox 07/08/20 07:00 97.5 F L 07/08/20 06:00 51 L 14 129/66 89 07/08/20 05:30 48 L 21 125/65 90 07/08/20 05:00 50 L 21 110/60 92 07/08/20 04:30 50 L 14 111/65 89 07/08/20 04:12 57 L 38 H 126/63 91 07/08/20 04:00 48 L 48 L 22 126/63 90 07/08/20 03:44 98.0 F 07/08/20 03:30 56 L 15 118/68 86 07/08/20 03:00 50 L 21 118/68 89 07/08/20 02:30 47 L 22 136/61 86 07/08/20 02:00 50 L 18 132/62 85 07/08/20 01:30 49 L 21 120/61 82 L 07/08/20 01:00 54 L 30 H 120/61 83 L 07/08/20 00:30 53 L 28 H 126/54 82 L 07/08/20 00:18 57 L 31 H 126/45 84 07/08/20 00:02 53 L 28 H 126/54 84 07/08/20 00:00 98.7 F 47 L 50 L 28 H 126/54 85 07/07/20 23:30 52 L 24 116/49 79 L 07/07/20 23:00 48 L 27 H 121/59 95 07/07/20 22:30 64 14 123/48 78 L 07/07/20 22:00 48 L 26 H 111/91 07/07/20 21:30 55 L 33 H 125/62 98 07/07/20 21:00 55 L 17 111/54 96 07/07/20 20:33 50 L 22 116/46 94 02/10/21 20:30 60 21 116/46 88 07/07/20 20:00 97.0 F L 50 L 52 L 16 116/46 81 L 07/07/20 19:30 51 L 12 115/61 87 07/07/20 19:00 57 L 24 114/63 89 07/07/20 18:30 53 L 25 H 116/54 93 07/07/20 18:00 61 17 134/62 97 07/07/20 17:30 46 L 36 H 134/62 100 07/07/20 17:00 46 L 24 137/62 87 07/07/20 16:30 51 L 27 H 113/61 89 07/07/20 16:00 97.7 F 53 L 22 113/61 90 07/07/20 15:30 52 L 16 128/71 89 07/07/20 15:00 54 L 23 121/68 90 07/07/20 14:30 54 L 27 H 123/72 88 07/07/20 14:00 49 L 26 H 114/67 84 07/07/20 13:30 52 L 30 H 133/72 85 07/07/20 13:00 57 L 27 H 133/72 94 07/07/20 12:30 51 L 25 H 124/63 91 07/07/20 12:12 49 L 28 H 124/63 99 07/07/20 12:00 98 F 57 L 23 133/68 90 07/07/20 11:30 48 L 31 H 133/68 98 07/07/20 11:00 48 L 10 L 145/69 80 L 07/07/20 10:30 42 L 23 145/69 90 07/07/20 10:00 39 L 16 145/69 99 - Physical Examination General: Other (on Bipap) - Labs and Meds Cardiac Enzymes 07/08/20 Range/Units 05:07 AST 20 (5-40) units/L CBC 07/08/20 Range/Units 05:07 WBC 7.7 (4.5-11.0) K/mm3 RBC 4.30 (3.65-5.03) M/mm3 Hgb 10.8 (10.1-14.3) gm/dl Hct 34.1 (30.3-42.9) % Plt Count 250 (140-440) K/mm3 Lymph # (Auto) 0.6 L (1.2-5.4) K/mm3 [place] # (Auto) 0.5 (0.0-0.8) K/mm3 Eos # (Auto) 0.0 (0.0-0.4) K/mm3 Baso # (Auto) 0.0 (0.0-0.1) K/mm3 Comprehensive Metabolic Panel 07/08/20 Range/Units 05:07 Sodium 140 (137-145) mmol/L Potassium 4.5 (3.6-5.0) mmol/L Chloride 103.1 (98-107) mmol/L Carbon Dioxide 28 (22-30) mmol/L BUN 51 H (7-17) mg/dL Creatinine 1.2 (0.6-1.2) mg/dL Glucose 326 H (65-100) mg/dL Calcium 8.5 (8.4-10.2) mg/dL AST 20 (5-40) units/L ALT 22 (7-56) units/L Alkaline Phosphatase 120 (35-129) units/L Total Protein 6.5 (6.3-8.2) g/dL Albumin 3.2 L (3.9-5) g/dL
[2020-07-08] MEDS: DOCUSATE SODIUM 100 MG CAP PO SCH ×2 (09:51→22:10)
[2020-07-08] MEDS: FAMOTIDINE 20 MG/2 ML INJ IV SCH (09:51)
[2020-07-08] MEDS: dexAMETHasone 4 MG/ML VIAL IV SCH (09:51)
[2020-07-08] MEDS: ZINC SULFATE 220 MG CAP PO SCH (09:52)
[2020-07-08] MEDS: AZITHROMYCIN/NS 500 MG/250 ML 500 MG/250 ML BAG IV SCH (09:52)
[2020-07-08] MEDS: SENNOSIDES 8.6 MG TAB PO SCH ×2 (09:52→22:10)
[2020-07-08] MEDS: cefTRIAXone/NS 2 GM/100 ML 2 GM/100 ML BAG IV SCH (09:52)
[2020-07-08] MEDS: ASCORBIC ACID 500 MG TAB PO SCH (09:52)
--- NOTE | 2020-07-08 10:59 | Progress Note ---
Assessment and Plan 69 y/o female, covid positive admitted with acute respiratory failure. 07/08/20: BNP was high normal, hold on lasix today. Continue steroids and remdesivir, may consider increasing steroids to BID. Continue bipap, NPO. Will give some ativan, very low dose PRN to see if this helps with work of breathing. Sinus ravindra is stable. Guarded prognosis. Doing everything to prevent extubation. 1. Will check bnP 2. Agree with steroids and remdesivir 3. Lasix 40mg IV x1 given today 4. Continue bipap for now, wean for sats >88% but wait a few hours until lasix is given. 5. PRone is possible 6. Guarded prognosis. If BNP elevated would need echo 7. Spoke with nursing about bradycardia, sinus on EKG, but if persistently low in 30's please repeat EKG Subjective Date of service: 07/08/20 Interval history: still on 100%. Sats vary constantly. Patient wants to eat but unable to tolerate being off bipap. Lasix tolerated with small bump in BUN. CR is back to normal. CXR is about the same technique is slightly different on today's film but I can't say that it is worse. REmainder is negative. Objective Vital Signs - 12hr 07/07/20 07/07/20 07/08/20 23:00 23:30 00:00 Temperature 98.7 F Pulse Rate 48 L 52 L 47 L Pulse Rate [ 50 L Apical] Respiratory 27 H 24 28 H Rate Blood Pressure 121/59 116/49 126/54 O2 Sat by Pulse 95 79 L 85 Oximetry 07/08/20 07/08/20 07/08/20 00:02 00:18 00:30 Temperature Pulse Rate 53 L 57 L 53 L Pulse Rate [ Apical] Respiratory 28 H 31 H 28 H Rate Blood Pressure 126/54 126/45 126/54 O2 Sat by Pulse 84 84 82 L Oximetry 07/08/20 07/08/20 07/08/20 01:00 01:30 02:00 Temperature Pulse Rate 54 L 49 L 50 L Pulse Rate [ Apical] Respiratory 30 H 21 18 Rate Blood Pressure 120/61 120/61 132/62 O2 Sat by Pulse 83 L 82 L 85 Oximetry 07/08/20 07/08/20 07/08/20 02:30 03:00 03:30 Temperature Pulse Rate 47 L 50 L 56 L Pulse Rate [ Apical] Respiratory 22 21 15 Rate Blood Pressure 136/61 118/68 118/68 O2 Sat by Pulse 86 89 86 Oximetry 07/08/20 07/08/20 07/08/20 03:44 04:00 04:12 Temperature 98.0 F Pulse Rate 48 L 57 L Pulse Rate [ 48 L Apical] Respiratory 22 38 H Rate Blood Pressure 126/63 126/63 O2 Sat by Pulse 90 91 Oximetry 07/08/20 07/08/20 07/08/20 04:30 05:00 05:30 Temperature Pulse Rate 50 L 50 L 48 L Pulse Rate [ Apical] Respiratory 14 21 21 Rate Blood Pressure 111/65 110/60 125/65 O2 Sat by Pulse 89 92 90 Oximetry 07/08/20 07/08/20 06:00 07:00 Temperature 97.5 F L Pulse Rate 51 L Pulse Rate [ Apical] Respiratory 14 Rate Blood Pressure 129/66 O2 Sat by Pulse 89 Oximetry Constitutional: no acute distress, alert, other (full face mask on for bipap therapy.) Eyes: non-icteric Neck: supple Ascultation: Bilateral: diminished breath sounds CBC and BMP: 07/08/20 05:07 07/08/20 05:07 ABG, PT/INR, D-dimer: ABG ABG pH 7.487 (7.320-7.450) H 07/08/20 02:39 POC ABG pCO2 32.8 mmHg (32.0-48.0) 07/08/20 02:39 POC ABG pO2 52.5 mmHg (83-108) L 07/08/20 02:39 POC ABG HCO3 24.3 07/08/20 02:39 PT/INR, D-dimer PT 14.7 Sec. (12.2-14.9) 07/06/20 08:50 INR 1.15 (0.87-1.13) H 07/06/20 08:50 D-Dimer 2542.57 ng/mlDDU (0-234) H 07/08/20 05:07 Abnormal lab findings: Abnormal Labs 07/06/20 07/06/20 07/06/20 08:50 08:50 08:50 MCV 78 L MCH 26 L Lymph % (Auto) Lymph # (Auto) Seg Neutrophils % Seg Neuts % (Manual) 80.0 H Lymphocytes % (Manual) 10.0 L Nucleated RBC % 4.0 H Seg Neutrophils # Man Lymphocytes # (Manual) 0.9 L INR 1.15 H D-Dimer 1435.13 H ABG pH POC ABG pCO2 POC ABG pO2 ABG Hemoglobin ABG Oxyhemoglobin ABG Glucose Carboxyhemoglobin Sodium 136 L BUN 45 H Creatinine 1.6 H Glucose 385 H POC Glucose Hemoglobin A1c Lactic Acid Ferritin Alkaline Phosphatase 130 H Lactate Dehydrogenase Troponin T 0.034 H C-Reactive Protein Albumin 3.2 L Arterial Blood Glucose Coronavirus (PCR) 07/06/20 07/06/20 07/06/20 08:50 08:50 08:50 MCV MCH Lymph % (Auto) Lymph # (Auto) Seg Neutrophils % Seg Neuts % (Manual) Lymphocytes % (Manual) Nucleated RBC % Seg Neutrophils # Man Lymphocytes # (Manual) INR D-Dimer ABG pH POC ABG pCO2 POC ABG pO2 ABG Hemoglobin ABG Oxyhemoglobin ABG Glucose Carboxyhemoglobin Sodium BUN Creatinine Glucose 385 H POC Glucose Hemoglobin A1c Lactic Acid 2.30 H* Ferritin 1158.0 H Alkaline Phosphatase Lactate Dehydrogenase 471 H Troponin T C-Reactive Protein 10.40 H Albumin Arterial Blood Glucose Coronavirus (PCR) 07/06/20 07/06/20 07/06/20 09:26 15:44 15:44 MCV MCH Lymph % (Auto) Lymph # (Auto) Seg Neutrophils % Seg Neuts % (Manual) Lymphocytes % (Manual) Nucleated RBC % Seg Neutrophils # Man Lymphocytes # (Manual) INR D-Dimer ABG pH POC ABG pCO2 POC ABG pO2 ABG Hemoglobin ABG Oxyhemoglobin ABG Glucose Carboxyhemoglobin Sodium BUN Creatinine Glucose POC Glucose Hemoglobin A1c 11.8 H Lactic Acid 2.40 H* Ferritin Alkaline Phosphatase Lactate Dehydrogenase Troponin T C-Reactive Protein Albumin Arterial Blood Glucose Coronavirus (PCR) Positive A 07/06/20 07/06/20 07/06/20 15:44 17:40 20:35 MCV MCH Lymph % (Auto) Lymph # (Auto) Seg Neutrophils % Seg Neuts % (Manual) Lymphocytes % (Manual) Nucleated RBC % Seg Neutrophils # Man Lymphocytes # (Manual) INR D-Dimer ABG pH 7.455 H POC ABG pCO2 30.9 L POC ABG pO2 50.0 L ABG Hemoglobin 11.1 L ABG Oxyhemoglobin 80.6 L ABG Glucose 357 H Carboxyhemoglobin 0.3 L Sodium BUN Creatinine Glucose POC Glucose 324 H Hemoglobin A1c Lactic Acid Ferritin Alkaline Phosphatase Lactate Dehydrogenase 683 H Troponin T C-Reactive Protein Albumin Arterial Blood Glucose 357 H Coronavirus (PCR) 07/06/20 07/06/20 07/07/20 21:49 23:52 02:19 MCV MCH Lymph % (Auto) Lymph # (Auto) Seg Neutrophils % Seg Neuts % (Manual) Lymphocytes % (Manual) Nucleated RBC % Seg Neutrophils # Man Lymphocytes # (Manual) INR D-Dimer ABG pH 7.455 H POC ABG pCO2 31.9 L POC ABG pO2 50.7 L 62.0 L ABG Hemoglobin 10.8 L 10.8 L ABG Oxyhemoglobin 80.2 L 88.3 L ABG Glucose 358 H 330 H Carboxyhemoglobin 0.2 L 0.2 L Sodium BUN Creatinine Glucose POC Glucose 336 H Hemoglobin A1c Lactic Acid Ferritin Alkaline Phosphatase Lactate Dehydrogenase Troponin T C-Reactive Protein Albumin Arterial Blood Glucose 358 H 330 H Coronavirus (PCR) 07/07/20 07/07/20 07/07/20 02:42 02:42 07:54 MCV MCH 26 L Lymph % (Auto) Lymph # (Auto) Seg Neutrophils % Seg Neuts % (Manual) 85.0 H Lymphocytes % (Manual) 6.0 L Nucleated RBC % Seg Neutrophils # Man 7.9 H Lymphocytes # (Manual) 0.6 L INR D-Dimer ABG pH POC ABG pCO2 POC ABG pO2 ABG Hemoglobin ABG Oxyhemoglobin ABG Glucose Carboxyhemoglobin Sodium BUN 47 H Creatinine 1.3 H Glucose 336 H POC Glucose 289 H Hemoglobin A1c Lactic Acid Ferritin Alkaline Phosphatase Lactate Dehydrogenase Troponin T C-Reactive Protein Albumin Arterial Blood Glucose Coronavirus (PCR) 07/07/20 07/07/20 07/07/20 11:07 15:40 23:27 MCV MCH Lymph % (Auto) Lymph # (Auto) Seg Neutrophils % Seg Neuts % (Manual) Lymphocytes % (Manual) Nucleated RBC % Seg Neutrophils # Man Lymphocytes # (Manual) INR D-Dimer ABG pH POC ABG pCO2 POC ABG pO2 ABG Hemoglobin ABG Oxyhemoglobin ABG Glucose Carboxyhemoglobin Sodium BUN Creatinine Glucose POC Glucose 322 H 346 H 274 H Hemoglobin A1c Lactic Acid Ferritin Alkaline Phosphatase Lactate Dehydrogenase Troponin T C-Reactive Protein Albumin Arterial Blood Glucose Coronavirus (PCR) 07/08/20 07/08/20 07/08/20 02:39 05:07 05:07 MCV MCH Lymph % (Auto) Lymph # (Auto) Seg Neutrophils % Seg Neuts % (Manual) Lymphocytes % (Manual) Nucleated RBC % Seg Neutrophils # Man Lymphocytes # (Manual) INR D-Dimer 2542.57 H ABG pH 7.487 H POC ABG pCO2 POC ABG pO2 52.5 L ABG Hemoglobin 11.8 L ABG Oxyhemoglobin ABG Glucose 336 H Carboxyhemoglobin Sodium BUN 51 H Creatinine Glucose 326 H POC Glucose Hemoglobin A1c Lactic Acid Ferritin Alkaline Phosphatase Lactate Dehydrogenase Troponin T C-Reactive Protein 4.30 H Albumin 3.2 L Arterial Blood Glucose 336 H Coronavirus (PCR) 07/08/20 07/08/20 07/08/20 05:07 05:07 05:21 MCV MCH 25 L Lymph % (Auto) 7.9 L Lymph # (Auto) 0.6 L Seg Neutrophils % 85.6 H Seg Neuts % (Manual) Lymphocytes % (Manual) Nucleated RBC % Seg Neutrophils # Man Lymphocytes # (Manual) INR D-Dimer ABG pH POC ABG pCO2 POC ABG pO2 ABG Hemoglobin ABG Oxyhemoglobin ABG Glucose Carboxyhemoglobin Sodium BUN Creatinine Glucose POC Glucose 293 H Hemoglobin A1c Lactic Acid Ferritin 975.6 H Alkaline Phosphatase Lactate Dehydrogenase Troponin T C-Reactive Protein Albumin Arterial Blood Glucose Coronavirus (PCR) 07/08/20 08:59 MCV MCH Lymph % (Auto) Lymph # (Auto) Seg Neutrophils % Seg Neuts % (Manual) Lymphocytes % (Manual) Nucleated RBC % Seg Neutrophils # Man Lymphocytes # (Manual) INR D-Dimer ABG pH POC ABG pCO2 POC ABG pO2 ABG Hemoglobin ABG Oxyhemoglobin ABG Glucose Carboxyhemoglobin Sodium BUN Creatinine Glucose POC Glucose 270 H Hemoglobin A1c Lactic Acid Ferritin Alkaline Phosphatase Lactate Dehydrogenase Troponin T C-Reactive Protein Albumin Arterial Blood Glucose Coronavirus (PCR)
[2020-07-08] MEDS: LORazepam 2 MG/ML VIAL IV PRN (11:20)
--- NOTE | 2020-07-08 12:31 | Progress Note ---
Assessment and Plan Cultures: SARS CoV2 PCR: Positive 07/06/2020 blood culture: No growth A/P: 69-year-old female with hypertension, diabetes: #Sepsis: Secondary to COVID-19 #Bilateral pneumonia: Secondary to COVID-19 #Acute hypoxic respiratory failure: On HFNC/BiPAP #CARMEN: Monitor renal function #Elevated D-dimer: VTE evaluation negative. Recs: -continue steroids, dosing per ICU -Continue empiric antibiotics due to elevated procalcitonin -continue IV remdesivir, D3 -prophylactic anticoagulation based on d-dimer per hospital protocol -trend ferritin, LDH, d-dimer, CRP every 2-3 days for risk stratification and to assess disease progression Yuliet Leija MD, FACP [facility] ([facility] O: [phone] F: [phone] Subjective Date of service: 07/08/20 Interval history: Afebrile. Still with high oxygen requirements. Objective - Exam Narrative Exam: Physical Exam (reviewed in chart to minimize risk of transmission) Constitutional: deferred Head, Ears, Nose: deferred Eyes: deferred Neck: deferred Oral: deferred Cardiovascular: deferred Respiratory: deferred GI: deferred Musculoskeletal: deferred Skin: deferred Hem/Lymphatic: deferred Psych: deferred Neurological: deferred - Constitutional Vitals: Vital Signs Temp Pulse Resp BP Pulse Ox 97.5 F L 53 L 23 133/70 95 07/08/20 07:00 07/08/20 08:48 07/08/20 08:48 07/08/20 08:48 07/08/20 08:48 Temperature -Last 24 Hours Temperature 97.5 F Temperature 98.0 F Temperature 98.7 F Temperature 97.0 F Temperature 97.7 F - Labs CBC & Chem 7: 07/08/20 05:07 07/08/20 05:07 Labs: Abnormal lab results 07/07/20 07/07/20 07/07/20 Range/Units 11:07 15:40 23:27 MCH (28-32) pg Lymph % (Auto) (13.4-35.0) % Lymph # (Auto) (1.2-5.4) K/mm3 Seg Neutrophils % (40.0-70.0) % D-Dimer (0-234) ng/mlDDU ABG pH (7.320-7.450) POC ABG pO2 (83-108) mmHg ABG Hemoglobin (12.0-17.5) ABG Glucose (65-95) mg/dL BUN (7-17) mg/dL Glucose (65-100) mg/dL POC Glucose 322 H 346 H 274 H (70-105) mg/dL Ferritin (10.0-200.0) ng/mL C-Reactive Protein (0.00-1.30) mg/dL Albumin (3.9-5) g/dL Arterial Blood Glucose (65-95) mg/dL 07/08/20 07/08/20 07/08/20 Range/Units 02:39 05:07 05:07 MCH (28-32) pg Lymph % (Auto) (13.4-35.0) % Lymph # (Auto) (1.2-5.4) K/mm3 Seg Neutrophils % (40.0-70.0) % D-Dimer 2542.57 H (0-234) ng/mlDDU ABG pH 7.487 H (7.320-7.450) POC ABG pO2 52.5 L (83-108) mmHg ABG Hemoglobin 11.8 L (12.0-17.5) ABG Glucose 336 H (65-95) mg/dL BUN 51 H (7-17) mg/dL Glucose 326 H (65-100) mg/dL POC Glucose (70-105) mg/dL Ferritin (10.0-200.0) ng/mL C-Reactive Protein 4.30 H (0.00-1.30) mg/dL Albumin 3.2 L (3.9-5) g/dL Arterial Blood Glucose 336 H (65-95) mg/dL 07/08/20 07/08/20 07/08/20 Range/Units 05:07 05:07 05:21 MCH 25 L (28-32) pg Lymph % (Auto) 7.9 L (13.4-35.0) % Lymph # (Auto) 0.6 L (1.2-5.4) K/mm3 Seg Neutrophils % 85.6 H (40.0-70.0) % D-Dimer (0-234) ng/mlDDU ABG pH (7.320-7.450) POC ABG pO2 (83-108) mmHg ABG Hemoglobin (12.0-17.5) ABG Glucose (65-95) mg/dL BUN (7-17) mg/dL Glucose (65-100) mg/dL POC Glucose 293 H (70-105) mg/dL Ferritin 975.6 H (10.0-200.0) ng/mL C-Reactive Protein (0.00-1.30) mg/dL Albumin (3.9-5) g/dL Arterial Blood Glucose (65-95) mg/dL 07/08/20 Range/Units 08:59 MCH (28-32) pg Lymph % (Auto) (13.4-35.0) % Lymph # (Auto) (1.2-5.4) K/mm3 Seg Neutrophils % (40.0-70.0) % D-Dimer (0-234) ng/mlDDU ABG pH (7.320-7.450) POC ABG pO2 (83-108) mmHg ABG Hemoglobin (12.0-17.5) ABG Glucose (65-95) mg/dL BUN (7-17) mg/dL Glucose (65-100) mg/dL POC Glucose 270 H (70-105) mg/dL Ferritin (10.0-200.0) ng/mL C-Reactive Protein (0.00-1.30) mg/dL Albumin (3.9-5) g/dL Arterial Blood Glucose (65-95) mg/dL
[2020-07-08] MEDS ORDERED: NORepinephrine/NS 4 MG-250 ML 0 MG/0 ML BAG IV ONE (13:19)
[2020-07-08] MEDS: methylPREDNISolone Sod Succinate 125 MG/2 ML INJ IV SCH ×3 (13:56→23:47)
--- NOTE | 2020-07-08 14:10 | Progress Note ---
Assessment and Plan Assessment and plan: Sepsis -Presented with hypoxia, tachypnea and acute hypoxic respiratory failure, acute kidney injury, pneumonia on CXR and COVID-19 infection -07/06 blood cultures x2 pending -Antibiotic therapy -Infectious disease consulted, appreciate recommendations COVID-19 infection -07/06 CXR shows diffuse hazy bilateral lung opacities concerning for viral infection, atypical pneumonia or pulmonary edema with no pleural effusions or pneumothorax -07/06 COVID-19 PCR positive -07/05 COVID-19 PCR at outside facility positive -Infectious disease and pulmonology consulted, appreciate recommendations -Contact/droplet isolation -Pulmonary hygiene -Supplemental oxygen as needed -Antibiotic therapy -07/07 remdesivir therapy started -Steroid therapy, increased by CCM -OOB 3 times daily -Prone to sleep as needed -Anticoagulation per protocol -Vitamin C, vitamin D and zinc -SPO2 monitoring Bilateral pneumonia -07/06 CXR shows diffuse hazy bilateral lung opacities concerning for viral infection, atypical pneumonia or pulmonary edema with no pleural effusions or pneumothorax -Secondary to COVID-19 infection -Antibiotic therapy -Infectious disease consulted, appreciate recommendation -07/06 blood cultures x2 no growth to date Elevated D-dimer -Admit D-dimer 1435 -07/06 nuclear medicine perfusion study shows low probability of pulmonary embolism -07/06 bilateral lower extremity Doppler ultrasound negative for DVT/SVT Acute hypoxic respiratory failure -Room air SPO2 75% and placed on high flow nasal cannula -Pulmonary consulted, patient recommendations -Steroid therapy -Supplemental oxygen as needed -Pulmonary hygiene -SPO2 monitoring -07/07 AB.4/32 point 5/62/20 2.3 with a base excess of -1 on 100% FiO2 via BiPAP -07/07 CXR: Persistent diffuse pulmonary process, pulmonary edema is a concern -07/07 lasix 40mg x1 -07/07 proBNP 459 Elevated troponin/SB -Presented with a troponin of 0.034 -07/06 troponin less than 0.10 -Cardiology consulted, appreciate recommendations -EKG as needed -No complaints of chest pain -Cardiology believes elevated troponin is in setting of acute kidney injury Acute kidney injury -12/2016 creatinine/BUN 0.9/15 -Presented with a creatinine/BUN 1.6/45 -07/07 BUN/Cr 47/1.3, 07/08 BUN/Cr 51/1.2 -Trend BMP -Consider nephrology consult if not improving Lactic acidosis -Presented with a lactic acid of 2.3 -Trend lactic acid -07/07 LA 1.6 Hypertension -Restart home antihypertensive regimen once obtained -Hydralazine as needed for SBP greater than 160 -Blood pressure monitoring per protocol Diabetes mellitus -07/06 hemoglobin A1c 11.8 -SSI -CC cardiac diet -Accu-Cheks AC at bedtime -Hypoglycemia protocol -07/06 initiated, titrate as needed DVT prophylaxis -Heparin subcu -GI prophylaxis -SCDs to bilateral lower extremities while in bed History Interval history: This is a 69-year-old Laotian female with limited Lebanese with hypertension, diabetes mellitus, hyperlipidemia who presented to the hospital on 07/06 via EMS with worsening subjective fevers, headache, body ache, dry cough, dyspnea on exertion, fatigue, headache and nausea since the last week end of May. Patient had a positive COVID-19 PCR on 07/05 as outside facility. Upon arrival to the emergency department patient was hypoxic on room air at 75% and tachypneic. Work-up in the emergency department with a CXR which showed bilateral pneumonia, lactic acidosis at 2.3, acute kidney injury at 1.6/45, elevated D-dimer, elevated troponin and slight hyponatremia 136. Patient received Rocephin, azithromycin and Decadron in the emergency department. Patient was admitted to the hospitalist service as a COVID-19 PUI, acute kidney injury, sepsis, lactic acidosis, and elevated D-dimer with consults to pulmonology and infectious disease. 07/06: COVID-19 PCR positive, azithromycin and Rocephin, Decadron and remdesivir therapy 07/07: Patient is on 100% FiO2 BiPAP therapy with SPO2 in the low 90s and high 80s, hypoxia and ABG, sinus bradycardia noted overnight. Repeat CXR shows persistent diffuse pulmonary process and pulmonary edema therefore she received 40 mg of Lasix x1 and a proBNP is pending per CCM 07/08: Patient remains on antibiotic therapy, kidney function tests have not worsened, sinus bradycardia still persist and steroid dosing was increased today by [facility]. Patient's daughter was updated today Hospitalist Physical - Constitutional Vitals: Temp Pulse Resp BP Pulse Ox 97.7 F 56 L 24 106/71 91 07/08/20 12:00 07/08/20 13:30 07/08/20 13:30 07/08/20 13:30 07/08/20 13:30 General appearance: Present: mild distress - EENT Eyes: Present: EOM intact ENT: hearing decreased - Neck Neck: Present: normal ROM - Respiratory Respiratory effort: labored Respiratory: bilateral: diminished - Cardiovascular Rhythm: regular Heart Sounds: Present: S1 & S2 - Extremities Extremities: no ischemia, pulses intact, pulses symmetrical, No edema, normal temperature, normal color, Full ROM Peripheral Pulses: within normal limits - Abdominal General gastrointestinal: soft, non-tender, non-distended - Integumentary Integumentary: Present: warm, dry (Phone call) - Psychiatric Psychiatric: appropriate mood/affect, cooperative - Neurologic Neurologic: CNII-XII intact, no focal deficits, moves all extremities - Allied Health Allied health notes reviewed: nursing HEART Score - HEART Score Troponin: Troponin T < 0.010 ng/mL (0.00-0.029) 07/07/20 00:22 Results - Labs CBC & Chem 7: 07/08/20 05:07 07/08/20 05:07 Labs: Laboratory Last Values WBC 7.7 K/mm3 (4.5-11.0) 07/08/20 05:07 RBC 4.30 M/mm3 (3.65-5.03) 07/08/20 05:07 Hgb 10.8 gm/dl (10.1-14.3) 07/08/20 05:07 Hct 34.1 % (30.3-42.9) 07/08/20 05:07 MCV 79 fl (79-97) 07/08/20 05:07 MCH 25 pg (28-32) L 07/08/20 05:07 MCHC 32 % (30-34) 07/08/20 05:07 RDW 13.7 % (13.2-15.2) 07/08/20 05:07 Plt Count 250 K/mm3 (140-440) 07/08/20 05:07 Lymph % (Auto) 7.9 % (13.4-35.0) L 07/08/20 05:07 [place] % (Auto) 6.4 % (0.0-7.3) 07/08/20 05:07 Eos % (Auto) 0.0 % (0.0-4.3) 07/08/20 05:07 Baso % (Auto) 0.1 % (0.0-1.8) 07/08/20 05:07 Lymph # (Auto) 0.6 K/mm3 (1.2-5.4) L 07/08/20 05:07 [place] # (Auto) 0.5 K/mm3 (0.0-0.8) 07/08/20 05:07 Eos # (Auto) 0.0 K/mm3 (0.0-0.4) 07/08/20 05:07 Baso # (Auto) 0.0 K/mm3 (0.0-0.1) 07/08/20 05:07 Add Manual Diff Complete 07/07/20 02:42 Total Counted 100 07/07/20 02:42 Seg Neutrophils % 85.6 % (40.0-70.0) H 07/08/20 05:07 Seg Neuts % (Manual) 85.0 % (40.0-70.0) H 07/07/20 02:42 Band Neutrophils % 4.0 % 07/07/20 02:42 Lymphocytes % (Manual) 6.0 % (13.4-35.0) L 07/07/20 02:42 Monocytes % (Manual) 5.0 % (0.0-7.3) 07/07/20 02:42 Metamyelocytes % 3.0 % 07/06/20 08:50 Nucleated RBC % Not Reportable 07/07/20 02:42 Seg Neutrophils # 6.6 K/mm3 (1.8-7.7) 07/08/20 05:07 Seg Neutrophils # Man 7.9 K/mm3 (1.8-7.7) H 07/07/20 02:42 Band Neutrophils # 0.4 K/mm3 07/07/20 02:42 Lymphocytes # (Manual) 0.6 K/mm3 (1.2-5.4) L 07/07/20 02:42 Abs React Lymphs (Man) 0.0 K/mm3 07/07/20 02:42 Monocytes # (Manual) 0.5 K/mm3 (0.0-0.8) 07/07/20 02:42 Eosinophils # (Manual) 0.0 K/mm3 (0.0-0.4) 07/07/20 02:42 Basophils # (Manual) 0.0 K/mm3 (0.0-0.1) 07/07/20 02:42 Metamyelocytes # 0.0 K/mm3 07/07/20 02:42 Myelocytes # 0.0 K/mm3 07/07/20 02:42 Promyelocytes # 0.0 K/mm3 07/07/20 02:42 Blast Cells # 0.0 K/mm3 07/07/20 02:42 WBC Morphology Not Reportable 07/07/20 02:42 Hypersegmented Neuts Not Reportable 07/07/20 02:42 Hyposegmented Neuts Not Reportable 07/07/20 02:42 Hypogranular Neuts Not Reportable 07/07/20 02:42 Smudge Cells Not Reportable 07/07/20 02:42 Toxic Granulation Not Reportable 07/07/20 02:42 Toxic Vacuolation Not Reportable 07/07/20 02:42 Dohle Bodies Not Reportable 07/07/20 02:42 Pelger-Huet Anomaly Not Reportable 07/07/20 02:42 Urdy Rods Not Reportable 07/07/20 02:42 Platelet Estimate Consistent w auto 07/07/20 02:42 Clumped Platelets Not Reportable 07/07/20 02:42 Plt Clumps, EDTA Not Reportable 07/07/20 02:42 Large Platelets Not Reportable 07/07/20 02:42 Giant Platelets Not Reportable 07/07/20 02:42 Platelet Satelliting Not Reportable 07/07/20 02:42 Plt Morphology Comment Not Reportable 07/07/20 02:42 RBC Morphology Not Reportable 07/07/20 02:42 Dimorphic RBCs Not Reportable 07/07/20 02:42 Polychromasia Rare 07/07/20 02:42 Hypochromasia 1+ 07/07/20 02:42 Poikilocytosis Not Reportable 07/07/20 02:42 Anisocytosis Few 07/07/20 02:42 Microcytosis Not Reportable 07/07/20 02:42 Macrocytosis Not Reportable 07/07/20 02:42 Spherocytes Not Reportable 07/07/20 02:42 Pappenheimer Bodies Not Reportable 07/07/20 02:42 Sickle Cells Not Reportable 07/07/20 02:42 Target Cells Not Reportable 07/07/20 02:42 Tear Drop Cells Rare 07/07/20 02:42 Ovalocytes Few 07/07/20 02:42 Helmet Cells Not Reportable 07/07/20 02:42 [place] Bodies Not Reportable 07/07/20 02:42 [place] Rings Not Reportable 07/07/20 02:42 Eliane Cells Not Reportable 07/07/20 02:42 Bite Cells Not Reportable 07/07/20 02:42 Crenated Cell Not Reportable 07/07/20 02:42 Elliptocytes Not Reportable 07/07/20 02:42 Acanthocytes (Spur) Not Reportable 07/07/20 02:42 Rouleaux Not Reportable 07/07/20 02:42 Hemoglobin C Crystals Not Reportable 07/07/20 02:42 Schistocytes Not Reportable 07/07/20 02:42 Malaria parasites Not Reportable 07/07/20 02:42 Shreyas Bodies Not Reportable 07/07/20 02:42 Hem Pathologist Commnt No 07/07/20 02:42 PT 14.7 Sec. (12.2-14.9) 07/06/20 08:50 INR 1.15 (0.87-1.13) H 07/06/20 08:50 APTT 25.9 Sec. (24.2-36.6) 07/06/20 08:50 D-Dimer 2542.57 ng/mlDDU (0-234) H 07/08/20 05:07 ABG pH 7.487 (7.320-7.450) H 07/08/20 02:39 POC ABG pCO2 32.8 mmHg (32.0-48.0) 07/08/20 02:39 POC ABG pO2 52.5 mmHg (83-108) L 07/08/20 02:39 POC ABG HCO3 24.3 07/08/20 02:39 POC ABG Base Excess 1.3 07/08/20 02:39 ABG Hemoglobin 11.8 (12.0-17.5) L 07/08/20 02:39 ABG Oxyhemoglobin 88.3 (94-98) L 07/07/20 02:19 ABG Methemoglobin 0.3 (0.0-1.5) 07/07/20 02:19 ABG Sodium 137.3 mmol/L (136.0-145.0) 07/08/20 02:39 ABG Potassium 4.3 mmol/L (3.40-4.50) 07/08/20 02:39 ABG Chloride 105.0 mmol/L (98-107) 07/08/20 02:39 ABG Glucose 336 mg/dL (65-95) H 07/08/20 02:39 Carboxyhemoglobin 0.2 (0.5-1.5) L 07/07/20 02:19 FiO2 100 07/08/20 02:39 Sodium 140 mmol/L (137-145) 07/08/20 05:07 Potassium 4.5 mmol/L (3.6-5.0) 07/08/20 05:07 Chloride 103.1 mmol/L (98-107) 07/08/20 05:07 Carbon Dioxide 28 mmol/L (22-30) 07/08/20 05:07 Anion Gap 13 mmol/L 07/08/20 05:07 BUN 51 mg/dL (7-17) H 07/08/20 05:07 Creatinine 1.2 mg/dL (0.6-1.2) 07/08/20 05:07 Estimated GFR 44 ml/min 07/08/20 05:07 BUN/Creatinine Ratio 43 % 07/08/20 05:07 Glucose 326 mg/dL (65-100) H 07/08/20 05:07 POC Glucose 270 mg/dL (70-105) H 07/08/20 08:59 Hemoglobin A1c 11.8 % (4-6) H 07/06/20 15:44 Lactic Acid 1.60 mmol/L (0.7-2.0) 07/07/20 08:55 Calcium 8.5 mg/dL (8.4-10.2) 07/08/20 05:07 Ferritin 975.6 ng/mL (10.0-200.0) H 07/08/20 05:07 Total Bilirubin 0.70 mg/dL (0.1-1.2) 07/08/20 05:07 AST 20 units/L (5-40) 07/08/20 05:07 ALT 22 units/L (7-56) 07/08/20 05:07 Alkaline Phosphatase 120 units/L (35-129) 07/08/20 05:07 Lactate Dehydrogenase 683 units/L (91-180) H 07/06/20 15:44 Total Creatine Kinase 47 units/L (30-135) 07/07/20 00:22 CK-MB (CK-2) 1.6 ng/mL (0.0-4.0) 07/07/20 00:22 CK-MB (CK-2) Rel Index 3.4 (0-4) 07/07/20 00:22 Troponin T < 0.010 ng/mL (0.00-0.029) 07/07/20 00:22 C-Reactive Protein 4.30 mg/dL (0.00-1.30) H 07/08/20 05:07 NT-Pro-B Natriuret Pep 459.9 pg/mL (0-900) 07/07/20 14:31 Total Protein 6.5 g/dL (6.3-8.2) 07/08/20 05:07 Albumin 3.2 g/dL (3.9-5) L 07/08/20 05:07 Albumin/Globulin Ratio 1.0 % 07/08/20 05:07 Procalcitonin 7.48 ng/mL (<0.15) 07/06/20 15:44 TSH 0.420 mlU/mL (0.270-4.200) 07/08/20 05:07 Arterial Blood Glucose 336 mg/dL (65-95) H 07/08/20 02:39 Arterial Blood Ionized Calcium 4.6 mg/dL (4.6-5.3) 07/08/20 02:39 Urine Color Yellow (Yellow) 07/07/20 03:35 Urine Turbidity Clear (Clear) 07/07/20 03:35 Urine pH 5.0 (5.0-7.0) 07/07/20 03:35 Ur Specific [place] 1.026 (1.003-1.030) 07/07/20 03:35 Urine Protein 30 mg/dl mg/dL (Negative) 07/07/20 03:35 Urine Glucose (UA) >=500 mg/dL (Negative) 07/07/20 03:35 Urine Ketones Neg mg/dL (Negative) 07/07/20 03:35 Urine Blood Neg (Negative) 07/07/20 03:35 Urine Nitrite Neg (Negative) 07/07/20 03:35 Urine Bilirubin Neg (Negative) 07/07/20 03:35 Urine Urobilinogen 2.0 mg/dL (<2.0) 07/07/20 03:35 Ur Leukocyte Esterase Neg (Negative) 07/07/20 03:35 Urine WBC (Auto) < 1.0 /HPF (0.0-6.0) 07/07/20 03:35 Urine RBC (Auto) 0.0 /HPF (0.0-6.0) 07/07/20 03:35 U Epithel Cells (Auto) < 1.0 /HPF (0-13.0) 07/07/20 03:35 Urine Bacteria (Auto) 1+ /HPF (Negative) 07/07/20 03:35 Urine Osmolality 731 Mosm/kg 07/07/20 03:35 Urine Sodium 54 mmol/L 07/07/20 03:35 Coronavirus (PCR) Positive (Negative) A 07/06/20 09:26 Microbiology: Microbiology 07/06/20 08:50 Peripheral/Venous Blood Culture - Preliminary NO GROWTH AFTER 48 HOURS 07/06/20 08:50 Peripheral/Venous Blood Culture - Preliminary NO GROWTH AFTER 48 HOURS - Diagnostic Impressions Diagnostic Impressions: Echocardiogram 07/08/20 09:36 Transthoracic Echocardiogram Indication: Chest pain BP: 129/66 HR: 67 Conclusions *The study is technically limited due to poor acoustic windows. *Global left ventricular systolic function is normal. *The estimated ejection fraction is greater than 55-60%. *Mild concentric left ventricular hypertrophy is observed. *There is trace of mitral regurgitation. *The right heart chambers are not well visualized. Findings Procedure Info: The study quality is poor. The study is technically limited due to poor acoustic windows. Left Ventricle: The left ventricular chamber size is normal. Mild concentric left ventricular hypertrophy is observed. Global left ventricular systolic function is normal. The estimated ejection fraction is 55-60%. Left Atrium: The left atrial chamber size is normal. Right Ventricle: The right ventricle is not well visualized. Right Atrium: The right atrium is not well visualized. Aortic Valve: The aortic valve leaflets are mildly thickened. There is no evidence of aortic regurgitation. There is no evidence of aortic stenosis. Mitral Valve: The mitral valve leaflets are mildly thickened. There is trace of mitral regurgitation. There is no evidence of mitral stenosis. Tricuspid Valve: The tricuspid valve is not well visualized. Pulmonic Valve: The pulmonic valve is not well visualized. Pericardium: There is no pericardial effusion. Aorta: There is no dilatation of the aortic root. Venous: The inferior vena cava appears normal in size. Measurements Chambers 2D Name Value Normal Range IVSd (2D) 1.02 cm (0.6 - 1.1) LVPWd (2D) 1.02 cm (0.6 - 1.1) LVIDd (2D) 4.88 cm (3.7 - 5.6) LVIDs (2D) 3.22 cm (2 - 3.8) LV FS (2D) 33.94 % - EF Teichholz (2D) 62.68 % - Ao root diameter (2D) 2.8 cm (2 - 3.7) Diastolic/Systolic Function Name Value Normal Range MV E-wave Vmax 0.37 m/sec - MV deceleration time 185.21 msec - MV A-wave Vmax 0.35 m/sec - MV E:A ratio 1.07 ratio - Aortic Valve Name Value Normal Range AV Vmax 1.29 m/sec - AV VTI 24.04 cm - AV peak gradient 6.69 mmHg - AV mean gradient 3.19 mmHg - LVOT diameter 2.01 cm - LVOT Vmax 1.07 m/sec - LVOT VTI 21.78 cm - LVOT peak gradient 4.56 mmHg - LVOT mean gradient 2.37 mmHg - SV LVOT 69.26 ml - LEOBARDO (continuity Vmax) 2.63 cm2 - LEOBARDO (continuity VTI) 2.88 cm2 - Pulmonic Valve/Qp:Qs Name Value Normal Range PV acceleration time 95.15 msec - Beal/IV: Voiding Method External Female Catheter Active Medications - Current Medications Current Medications: Generic Name Dose Route Start Last Admin Trade Name Freq PRN Reason Stop Dose Admin Acetaminophen 650 mg 07/06/20 11:01 Acetaminophen 325 Mg Tab PO Q4H PRN Pain MILD(1-3)/Fever >100.5/OHARA Acetaminophen 650 mg 07/08/20 01:34 07/08/20 02:04 Acetaminophen [address] 650 mg Q4H PRN Administration PainMild (1-3),fever>100.5,OHARA Al Hydrox/Mg Hydrox/Simethicone 30 ml 07/06/20 11:01 Alum-Mag Hydroxide-Simethicone [id number]/5ml Oral Liqd 30 Ml PO Q4H PRN Indigestion Ascorbic Acid 500 mg 07/06/20 16:00 07/08/20 09:52 Ascorbic Acid 500 Mg Tab PO Not Given QDAY MITALI Dextrose 50 ml 07/06/20 11:01 Dextrose 50% In Water (25gm) 50 Ml Syringe IV Q30MIN PRN Hypoglycemia Protocol Docusate Sodium 100 mg 07/06/20 22:00 07/08/20 09:51 Docusate Sodium 100 Mg Cap PO Not Given BID MITALI Famotidine 20 mg 07/07/20 10:00 07/08/20 09:51 Famotidine 20 Mg/2 Ml Inj IV 20 mg DAILY MITALI Administration Heparin Sodium (Porcine) 7,500 unit 07/07/20 14:00 07/08/20 13:56 Heparin 5,000 Unit/1 Ml Vial SUB-Q 7,500 unit Q8HR MITALI Administration Hydralazine HCl 10 mg 07/07/20 07:28 Hydralazine 20 Mg/1 Ml Inj IV Q4HR PRN Hypertension Hydralazine HCl 10 mg 07/07/20 08:00 07/08/20 13:02 Hydralazine 10 Mg Tab PO Not Given Q8HR MITALI Ceftriaxone Sodium 2 gm in 100 mls @ 200 mls/hr 07/07/20 10:00 07/08/20 09:52 Rocephin/Ns 2 Gm/100 Ml IV 200 mls/hr Q24HR MITALI Administration Protocol REMDESIVIR 100 mg/ Sodium 250 mls @ 500 mls/hr 07/07/20 21:00 07/07/20 21:36 Chloride IV 07/10/20 21:29 500 mls/hr Q24HR@2100 MITALI Administration Azithromycin 500 mg in 250 mls @ 250 mls/hr 07/07/20 10:00 07/08/20 09:52 Zithromax/Ns IV 07/11/20 09:59 250 mls/hr Q24H MITALI Administration Insulin Human Isoph/Insulin Regular 10 unit 07/08/20 09:00 07/08/20 09:48 Insulin Nph/Regular 70/30 Inj SUB-Q 10 unit BIDDIAB MITALI Administration Insulin Human Lispro 0 unit 07/07/20 09:00 07/08/20 13:02 Insulin Lispro 100 Unit/Ml SUB-Q 6 unit Q6HR MITALI Administration Protocol Lorazepam 0.5 mg 07/08/20 11:00 07/08/20 11:20 Lorazepam 2 Mg/Ml Vial IV 0.5 mg Q4H PRN Administration Anxiety Methylprednisolone Sodium Succinate 60 mg 07/08/20 13:00 07/08/20 13:56 Methylprednisolone Sod Succinate 125 Mg/2 Ml Inj IV 60 mg Q6HR MITALI Administration Ondansetron HCl 4 mg 07/06/20 11:01 Ondansetron 4 Mg/2 Ml Inj IV Q8H PRN Nausea And Vomiting Oxycodone/Acetaminophen 1 tab 07/06/20 11:01 Oxycodone /Acetaminophen 5-325mg Tab PO Q6H PRN Pain, Moderate (4-6) Senna 8.6 mg 07/06/20 22:00 07/08/20 09:52 Sennosides 8.6 Mg Tab PO Not Given Q12HR MITALI Sodium Chloride 10 ml 07/06/20 22:00 07/08/20 09:52 Sodium Chloride 0.9% 10 Ml Flush Syringe IV 10 ml BID MITALI Administration Sodium Chloride 10 ml 07/06/20 11:01 Sodium Chloride 0.9% 10 Ml Flush Syringe IV PRN PRN LINE FLUSH Sodium Chloride 50 ml 07/06/20 16:00 07/07/20 21:35 Sodium Chloride 0.9% 50 Ml Ivpb IV 07/09/20 21:01 50 ml Q24HR@2100 MITALI Administration Zinc Sulfate 220 mg 07/06/20 16:00 07/08/20 09:52 Zinc Sulfate 220 Mg Cap PO Not Given QDAY MITALI
[2020-07-08] MEDS: SODIUM CHLORIDE 0.9% 50 ML IVPB IV SCH (22:10)
[2020-07-08] MEDS: REMDESIVIR 100 MG in SODIUM CHLORIDE 0.9% 250ML 250 ML IV SCH (22:10)
--- NOTE | 2020-07-09 03:10 | XRay Report ---
CHEST 1 VIEW 07/09/2020 1:47 AM INDICATION / CLINICAL INFORMATION: hypoxia. COMPARISON: 07/08/20 FINDINGS: SUPPORT DEVICES: None. HEART / MEDIASTINUM: Stable. LUNGS / PLEURA: Bilateral pulmonary opacities appear similar. Interval development of small bilateral pneumothoraces. ADDITIONAL FINDINGS: No significant additional findings. IMPRESSION: 1. Interval development of small, bilateral pneumothoraces. IMPORTANT FINDING: Time of Communication (DIESEL ENGINE ENGINEER/CDT): 2:04 AM Licensed Practitioner Receiving Report: Nurse Haily in critical care Signer Name: Valeriano Butts MD Signed: 07/09/2020 3:05 AM Workstation Name: [id number]
--- NOTE | 2020-07-09 03:38 | Event Note ---
Date: 07/09/20 Patient chest x-ray shows small pneumothorax. Check that x-ray with ER physician. Patient is on BiPAP with 100% FiO2. Patient does not need any chest tube as per ER physician. Pulmonary Dr. Barlow also notified
[2020-07-09] MEDS: methylPREDNISolone Sod Succinate 125 MG/2 ML INJ IV SCH ×3 (05:29→18:07)
[2020-07-09] MEDS: HEPARIN 5,000 UNIT/1 ML VIAL SUB-Q SCH ×2 (05:32→16:36)
[2020-07-09] MEDS: hydrALAZINE 10 MG TAB PO SCH ×3 (05:37→21:27)
[2020-07-09] MEDS: INSULIN LISPRO 100 UNIT/ML SUB-Q SCH ×3 (05:54→18:04)
[2020-07-09 07:44] LABS: Albumin 3.2 g/dL (3.9-5); Calcium 8.9 mg/dL (8.4-10.2)
[2020-07-09 07:45] LABS: Hematocrit 35.7 % (30.3-42.9); Hemoglobin 11.7 gm/dl (10.1-14.3); Mean Corpuscular HGB Conc 33 % (30-34); Mean Corpuscular Volume 79 fl (79-97); Platelet Count 219 K/mm3 (140-440); Red Blood Count 4.54 M/mm3 (3.65-5.03); Red Cell Distribution Width 13.9 % (13.2-15.2)
[2020-07-09 07:49] LABS: Basophils % (Auto) 0.3 % (0.0-1.8); Eosinophils # (Auto) 0.1 K/mm3 (0.0-0.4); Eosinophils % (Auto) 0.6 % (0.0-4.3); Lymphocytes # (Auto) 0.4 K/mm3 (1.2-5.4); Lymphocytes % (Auto) 4.3 % (13.4-35.0); Monocytes # (Auto) 0.4 K/mm3 (0.0-0.8); Monocytes % (Auto) 3.6 % (0.0-7.3)
[2020-07-09] MEDS: INSULIN NPH/REGULAR 70/30 INJ SUB-Q SCH ×2 (08:34→16:37)
--- NOTE | 2020-07-09 08:43 | XRay Report ---
CHEST 1 VIEW 7:41 AM INDICATION: BI PHEUMOTHORAX F/U. COMPARISON: Earlier today FINDINGS: Support devices: None. Heart: Stable. Lungs/Pleura: Previously seen small bilateral pneumothoraces are again noted. These have decreased in size. Pulmonary opacities are stable. IMPRESSION: 1. Interval decrease in size of previously seen small bilateral pneumothoraces [facility]. No new findings. Signer Name: Sage Sam MD Signed: 07/09/2020 8:39 AM Workstation Name: [email or web address]
[2020-07-09 09:26] LABS: Total Cells Counted 100
[2020-07-09 09:28] LABS: Macrocytosis Rare
[2020-07-09 09:29] LABS: Platelet Estimate Consistent w Auto
[2020-07-09] MEDS: FAMOTIDINE 20 MG/2 ML INJ IV SCH (10:02)
--- NOTE | 2020-07-09 10:02 | Progress Note ---
Assessment and Plan 69 y/o female, covid positive admitted with acute respiratory failure. 07/09/20: Continue steroids and Remdesivir. I increased steroids to 60q6 on yesterday. Continue NPO state and Continue bipap. Trying very had to not intubate but given lack of improvement and lack of nutrition, may have to electively do so in the next 12-24 hours. Will give a small dose of IV lasix today. Prognosis is very very guarded. Apparently is upstairs as well. 07/08/20: BNP was high normal, hold on lasix today. Continue steroids and remdesivir, may consider increasing steroids to BID. Continue bipap, NPO. Will give some ativan, very low dose PRN to see if this helps with work of breathing. Sinus ravindra is stable. Guarded prognosis. Doing everything to prevent extubation. 1. Will check bnP 2. Agree with steroids and remdesivir 3. Lasix 40mg IV x1 given today 4. Continue bipap for now, wean for sats >88% but wait a few hours until lasix is given. 5. PRone is possible 6. Guarded prognosis. If BNP elevated would need echo 7. Spoke with nursing about bradycardia, sinus on EKG, but if persistently low in 30's please repeat EKG Subjective Date of service: 07/09/20 Interval history: Patient still not able to wean from bipap. Briefly on HFNC this morning. Failed after only few minutes. Still awake. Wants to eat. Objective Vital Signs - 12hr 07/08/20 07/08/20 07/08/20 22:00 22:10 22:30 Temperature Pulse Rate 60 60 Pulse Rate [ 60 Apical] Respiratory 32 H 22 37 H Rate Blood Pressure 115/71 115/71 O2 Sat by Pulse 89 88 88 Oximetry 07/08/20 07/08/20 07/08/20 22:41 23:00 23:30 Temperature Pulse Rate 60 59 L 64 Pulse Rate [ Apical] Respiratory 25 H 20 Rate Blood Pressure 115/71 114/60 114/60 O2 Sat by Pulse 88 94 Oximetry 07/08/20 07/08/20 07/09/20 23:49 23:53 00:00 Temperature 97.5 F L Pulse Rate 57 L 59 L Pulse Rate [ 60 Apical] Respiratory 29 H 29 H Rate Blood Pressure 114/60 114/60 O2 Sat by Pulse 88 85 Oximetry 07/09/20 07/09/20 07/09/20 00:08 00:30 01:00 Temperature Pulse Rate 56 L 59 L 58 L Pulse Rate [ Apical] Respiratory 28 H 25 H 24 Rate Blood Pressure 141/117 141/117 121/71 O2 Sat by Pulse 89 87 89 Oximetry 07/09/20 07/09/20 07/09/20 01:13 01:30 02:00 Temperature Pulse Rate 59 L Pulse Rate [ 60 Apical] Respiratory 22 Rate Blood Pressure 121/71 111/75 O2 Sat by Pulse 88 89 88 Oximetry 07/09/20 07/09/20 07/09/20 02:30 03:00 03:23 Temperature 97.8 F Pulse Rate 60 61 Pulse Rate [ Apical] Respiratory 24 23 Rate Blood Pressure 111/75 111/75 O2 Sat by Pulse 90 89 Oximetry 07/09/20 07/09/20 07/09/20 03:30 04:00 04:30 Temperature Pulse Rate 58 L 57 L 59 L Pulse Rate [ Apical] Respiratory 23 25 H Rate Blood Pressure 113/74 128/50 122/73 O2 Sat by Pulse 86 92 90 Oximetry 07/09/20 07/09/20 07/09/20 05:00 05:30 05:37 Temperature Pulse Rate 63 66 59 L Pulse Rate [ Apical] Respiratory 21 Rate Blood Pressure 122/73 128/50 128/50 O2 Sat by Pulse 90 89 Oximetry 07/09/20 07/09/20 07/09/20 06:00 06:30 07:00 Temperature 98.1 F Pulse Rate 57 L 56 L 61 Pulse Rate [ Apical] Respiratory 26 H 26 H 23 Rate Blood Pressure 137/80 137/80 119/83 O2 Sat by Pulse 88 91 90 Oximetry 07/09/20 07/09/20 07/09/20 07:30 08:00 08:03 Temperature Pulse Rate 54 L 78 Pulse Rate [ Apical] Respiratory 20 34 H Rate Blood Pressure 119/83 119/83 O2 Sat by Pulse 91 83 L 92 Oximetry 07/09/20 07/09/20 08:09 08:30 Temperature Pulse Rate 63 Pulse Rate [ Apical] Respiratory 19 Rate Blood Pressure 132/59 O2 Sat by Pulse 90 89 Oximetry Constitutional: no acute distress, alert, other (full face mask on for bipap therapy.) Eyes: non-icteric Neck: supple Ascultation: Bilateral: diminished breath sounds CBC and BMP: 07/09/20 06:51 07/09/20 06:51 ABG, PT/INR, D-dimer: ABG ABG pH 7.487 (7.320-7.450) H 07/08/20 02:39 POC ABG pCO2 32.8 mmHg (32.0-48.0) 07/08/20 02:39 POC ABG pO2 52.5 mmHg (83-108) L 07/08/20 02:39 POC ABG HCO3 24.3 07/08/20 02:39 PT/INR, D-dimer PT 14.7 Sec. (12.2-14.9) 07/06/20 08:50 INR 1.15 (0.87-1.13) H 07/06/20 08:50 D-Dimer 2542.57 ng/mlDDU (0-234) H 07/08/20 05:07 Abnormal lab findings: Abnormal Labs 07/06/20 07/06/20 07/06/20 08:50 08:50 08:50 MCV 78 L MCH 26 L Lymph % (Auto) Lymph # (Auto) Seg Neutrophils % Seg Neuts % (Manual) 80.0 H Lymphocytes % (Manual) 10.0 L Nucleated RBC % 4.0 H Seg Neutrophils # Seg Neutrophils # Man Lymphocytes # (Manual) 0.9 L INR 1.15 H D-Dimer 1435.13 H ABG pH POC ABG pCO2 POC ABG pO2 ABG Hemoglobin ABG Oxyhemoglobin ABG Glucose Carboxyhemoglobin Sodium 136 L Chloride BUN 45 H Creatinine 1.6 H Glucose 385 H POC Glucose Hemoglobin A1c Lactic Acid Ferritin Alkaline Phosphatase 130 H Lactate Dehydrogenase Troponin T 0.034 H C-Reactive Protein Albumin 3.2 L Arterial Blood Glucose Coronavirus (PCR) 07/06/20 07/06/20 07/06/20 08:50 08:50 08:50 MCV MCH Lymph % (Auto) Lymph # (Auto) Seg Neutrophils % Seg Neuts % (Manual) Lymphocytes % (Manual) Nucleated RBC % Seg Neutrophils # Seg Neutrophils # Man Lymphocytes # (Manual) INR D-Dimer ABG pH POC ABG pCO2 POC ABG pO2 ABG Hemoglobin ABG Oxyhemoglobin ABG Glucose Carboxyhemoglobin Sodium Chloride BUN Creatinine Glucose 385 H POC Glucose Hemoglobin A1c Lactic Acid 2.30 H* Ferritin 1158.0 H Alkaline Phosphatase Lactate Dehydrogenase 471 H Troponin T C-Reactive Protein 10.40 H Albumin Arterial Blood Glucose Coronavirus (PCR) 07/06/20 07/06/20 07/06/20 09:26 15:44 15:44 MCV MCH Lymph % (Auto) Lymph # (Auto) Seg Neutrophils % Seg Neuts % (Manual) Lymphocytes % (Manual) Nucleated RBC % Seg Neutrophils # Seg Neutrophils # Man Lymphocytes # (Manual) INR D-Dimer ABG pH POC ABG pCO2 POC ABG pO2 ABG Hemoglobin ABG Oxyhemoglobin ABG Glucose Carboxyhemoglobin Sodium Chloride BUN Creatinine Glucose POC Glucose Hemoglobin A1c 11.8 H Lactic Acid 2.40 H* Ferritin Alkaline Phosphatase Lactate Dehydrogenase Troponin T C-Reactive Protein Albumin Arterial Blood Glucose Coronavirus (PCR) Positive A 07/06/20 07/06/20 07/06/20 15:44 17:40 20:35 MCV MCH Lymph % (Auto) Lymph # (Auto) Seg Neutrophils % Seg Neuts % (Manual) Lymphocytes % (Manual) Nucleated RBC % Seg Neutrophils # Seg Neutrophils # Man Lymphocytes # (Manual) INR D-Dimer ABG pH 7.455 H POC ABG pCO2 30.9 L POC ABG pO2 50.0 L ABG Hemoglobin 11.1 L ABG Oxyhemoglobin 80.6 L ABG Glucose 357 H Carboxyhemoglobin 0.3 L Sodium Chloride BUN Creatinine Glucose POC Glucose 324 H Hemoglobin A1c Lactic Acid Ferritin Alkaline Phosphatase Lactate Dehydrogenase 683 H Troponin T C-Reactive Protein Albumin Arterial Blood Glucose 357 H Coronavirus (PCR) 07/06/20 07/06/20 07/07/20 21:49 23:52 02:19 MCV MCH Lymph % (Auto) Lymph # (Auto) Seg Neutrophils % Seg Neuts % (Manual) Lymphocytes % (Manual) Nucleated RBC % Seg Neutrophils # Seg Neutrophils # Man Lymphocytes # (Manual) INR D-Dimer ABG pH 7.455 H POC ABG pCO2 31.9 L POC ABG pO2 50.7 L 62.0 L ABG Hemoglobin 10.8 L 10.8 L ABG Oxyhemoglobin 80.2 L 88.3 L ABG Glucose 358 H 330 H Carboxyhemoglobin 0.2 L 0.2 L Sodium Chloride BUN Creatinine Glucose POC Glucose 336 H Hemoglobin A1c Lactic Acid Ferritin Alkaline Phosphatase Lactate Dehydrogenase Troponin T C-Reactive Protein Albumin Arterial Blood Glucose 358 H 330 H Coronavirus (PCR) 07/07/20 07/07/20 07/07/20 02:42 02:42 07:54 MCV MCH 26 L Lymph % (Auto) Lymph # (Auto) Seg Neutrophils % Seg Neuts % (Manual) 85.0 H Lymphocytes % (Manual) 6.0 L Nucleated RBC % Seg Neutrophils # Seg Neutrophils # Man 7.9 H Lymphocytes # (Manual) 0.6 L INR D-Dimer ABG pH POC ABG pCO2 POC ABG pO2 ABG Hemoglobin ABG Oxyhemoglobin ABG Glucose Carboxyhemoglobin Sodium Chloride BUN 47 H Creatinine 1.3 H Glucose 336 H POC Glucose 289 H Hemoglobin A1c Lactic Acid Ferritin Alkaline Phosphatase Lactate Dehydrogenase Troponin T C-Reactive Protein Albumin Arterial Blood Glucose Coronavirus (PCR) 07/07/20 07/07/20 07/07/20 11:07 15:40 23:27 MCV MCH Lymph % (Auto) Lymph # (Auto) Seg Neutrophils % Seg Neuts % (Manual) Lymphocytes % (Manual) Nucleated RBC % Seg Neutrophils # Seg Neutrophils # Man Lymphocytes # (Manual) INR D-Dimer ABG pH POC ABG pCO2 POC ABG pO2 ABG Hemoglobin ABG Oxyhemoglobin ABG Glucose Carboxyhemoglobin Sodium Chloride BUN Creatinine Glucose POC Glucose 322 H 346 H 274 H Hemoglobin A1c Lactic Acid Ferritin Alkaline Phosphatase Lactate Dehydrogenase Troponin T C-Reactive Protein Albumin Arterial Blood Glucose Coronavirus (PCR) 07/08/20 07/08/20 07/08/20 02:39 05:07 05:07 MCV MCH Lymph % (Auto) Lymph # (Auto) Seg Neutrophils % Seg Neuts % (Manual) Lymphocytes % (Manual) Nucleated RBC % Seg Neutrophils # Seg Neutrophils # Man Lymphocytes # (Manual) INR D-Dimer 2542.57 H ABG pH 7.487 H POC ABG pCO2 POC ABG pO2 52.5 L ABG Hemoglobin 11.8 L ABG Oxyhemoglobin ABG Glucose 336 H Carboxyhemoglobin Sodium Chloride BUN 51 H Creatinine Glucose 326 H POC Glucose Hemoglobin A1c Lactic Acid Ferritin Alkaline Phosphatase Lactate Dehydrogenase Troponin T C-Reactive Protein 4.30 H Albumin 3.2 L Arterial Blood Glucose 336 H Coronavirus (PCR) 07/08/20 07/08/20 07/08/20 05:07 05:07 05:21 MCV MCH 25 L Lymph % (Auto) 7.9 L Lymph # (Auto) 0.6 L Seg Neutrophils % 85.6 H Seg Neuts % (Manual) Lymphocytes % (Manual) Nucleated RBC % Seg Neutrophils # Seg Neutrophils # Man Lymphocytes # (Manual) INR D-Dimer ABG pH POC ABG pCO2 POC ABG pO2 ABG Hemoglobin ABG Oxyhemoglobin ABG Glucose Carboxyhemoglobin Sodium Chloride BUN Creatinine Glucose POC Glucose 293 H Hemoglobin A1c Lactic Acid Ferritin 975.6 H Alkaline Phosphatase Lactate Dehydrogenase Troponin T C-Reactive Protein Albumin Arterial Blood Glucose Coronavirus (PCR) 07/08/20 07/08/20 07/08/20 08:59 11:39 17:57 MCV MCH Lymph % (Auto) Lymph # (Auto) Seg Neutrophils % Seg Neuts % (Manual) Lymphocytes % (Manual) Nucleated RBC % Seg Neutrophils # Seg Neutrophils # Man Lymphocytes # (Manual) INR D-Dimer ABG pH POC ABG pCO2 POC ABG pO2 ABG Hemoglobin ABG Oxyhemoglobin ABG Glucose Carboxyhemoglobin Sodium Chloride BUN Creatinine Glucose POC Glucose 270 H 285 H 221 H Hemoglobin A1c Lactic Acid Ferritin Alkaline Phosphatase Lactate Dehydrogenase Troponin T C-Reactive Protein Albumin Arterial Blood Glucose Coronavirus (PCR) 07/08/20 07/08/20 07/09/20 21:26 23:29 05:29 MCV MCH Lymph % (Auto) Lymph # (Auto) Seg Neutrophils % Seg Neuts % (Manual) Lymphocytes % (Manual) Nucleated RBC % Seg Neutrophils # Seg Neutrophils # Man Lymphocytes # (Manual) INR D-Dimer ABG pH POC ABG pCO2 POC ABG pO2 ABG Hemoglobin ABG Oxyhemoglobin ABG Glucose Carboxyhemoglobin Sodium Chloride BUN Creatinine Glucose POC Glucose 232 H 231 H 196 H Hemoglobin A1c Lactic Acid Ferritin Alkaline Phosphatase Lactate Dehydrogenase Troponin T C-Reactive Protein Albumin Arterial Blood Glucose Coronavirus (PCR) 07/09/20 07/09/20 06:51 06:51 MCV MCH 26 L Lymph % (Auto) 4.3 L Lymph # (Auto) 0.4 L Seg Neutrophils % Seg Neuts % (Manual) Lymphocytes % (Manual) 1.0 L Nucleated RBC % Seg Neutrophils # 9.1 H Seg Neutrophils # Man 9.8 H Lymphocytes # (Manual) 0.1 L INR D-Dimer ABG pH POC ABG pCO2 POC ABG pO2 ABG Hemoglobin ABG Oxyhemoglobin ABG Glucose Carboxyhemoglobin Sodium 147 H Chloride 111.9 H BUN 52 H Creatinine Glucose 207 H POC Glucose Hemoglobin A1c Lactic Acid Ferritin Alkaline Phosphatase Lactate Dehydrogenase Troponin T C-Reactive Protein Albumin 3.2 L Arterial Blood Glucose Coronavirus (PCR)
[2020-07-09] MEDS: DOCUSATE SODIUM 100 MG CAP PO SCH ×2 (10:03→21:27)
[2020-07-09] MEDS: cefTRIAXone/NS 2 GM/100 ML 2 GM/100 ML BAG IV SCH (10:03)
[2020-07-09] MEDS: SENNOSIDES 8.6 MG TAB PO SCH ×2 (10:03→21:27)
[2020-07-09] MEDS: ZINC SULFATE 220 MG CAP PO SCH (10:04)
[2020-07-09] MEDS: ASCORBIC ACID 500 MG TAB PO SCH (10:04)
[2020-07-09] MEDS ORDERED: FUROSEMIDE 20 MG/2 ML INJ IV ONE (11:00)
[2020-07-09] MEDS: AZITHROMYCIN/NS 500 MG/250 ML 500 MG/250 ML BAG IV SCH (12:01)
--- NOTE | 2020-07-09 14:05 | Progress Note ---
Assessment and Plan Assessment and plan: Sepsis -Presented with hypoxia, tachypnea and acute hypoxic respiratory failure, acute kidney injury, pneumonia on CXR and COVID-19 infection -07/06 blood cultures x2 pending -Antibiotic therapy -Infectious disease consulted, appreciate recommendations COVID-19 infection -07/06 CXR shows diffuse hazy bilateral lung opacities concerning for viral infection, atypical pneumonia or pulmonary edema with no pleural effusions or pneumothorax -07/06 COVID-19 PCR positive -07/05 COVID-19 PCR at outside facility positive -Infectious disease and pulmonology consulted, appreciate recommendations -Contact/droplet isolation -Pulmonary hygiene -Supplemental oxygen as needed -Antibiotic therapy -07/07 remdesivir therapy started -Steroid therapy, increased by CCM -OOB 3 times daily -Prone to sleep as needed -Anticoagulation per protocol -Vitamin C, vitamin D and zinc -SPO2 monitoring Bilateral pneumonia -07/06 CXR shows diffuse hazy bilateral lung opacities concerning for viral infection, atypical pneumonia or pulmonary edema with no pleural effusions or pneumothorax -Secondary to COVID-19 infection -Antibiotic therapy -Infectious disease consulted, appreciate recommendation -07/06 blood cultures x2 no growth to date Elevated D-dimer -Admit D-dimer 1435 -07/06 nuclear medicine perfusion study shows low probability of pulmonary embolism -07/06 bilateral lower extremity Doppler ultrasound negative for DVT/SVT Acute hypoxic respiratory failure -Room air SPO2 75% and placed on high flow nasal cannula -Pulmonary consulted, patient recommendations -Steroid therapy -Supplemental oxygen as needed -Pulmonary hygiene -SPO2 monitoring -07/07 AB.4/32 point 5/62/20 2.3 with a base excess of -1 on 100% FiO2 via BiPAP -07/07 CXR: Persistent diffuse pulmonary process, pulmonary edema is a concern -07/07 lasix 40mg x1, 07/09 lasix x1 -07/07 proBNP 459 Elevated troponin/SB -Presented with a troponin of 0.034 -07/06 troponin less than 0.10 -Cardiology consulted, appreciate recommendations -EKG as needed -No complaints of chest pain -Cardiology believes elevated troponin is in setting of acute kidney injury Acute kidney injury -12/2016 creatinine/BUN 0.9/15 -Presented with a creatinine/BUN 1.6/45 -07/07 BUN/Cr 47/1.3, 07/08 BUN/Cr 51/1.2 -Trend BMP -Consider nephrology consult if not improving Lactic acidosis -Presented with a lactic acid of 2.3 -Trend lactic acid -07/07 LA 1.6 Hypernatremia -07/09 sodium 147 -Trend BMP Hyperchloremia -07/09 chloride 111 -Trend BMP Hypertension -Restart home antihypertensive regimen once obtained -Hydralazine as needed for SBP greater than 160 -Blood pressure monitoring per protocol Diabetes mellitus -07/06 hemoglobin A1c 11.8 -SSI -CC cardiac diet -Accu-Cheks AC at bedtime -Hypoglycemia protocol -07/06 70/30 initiated, titrate as needed DVT prophylaxis -Heparin subcu -GI prophylaxis -SCDs to bilateral lower extremities while in bed History Interval history: This is a 69-year-old Laotian female with limited Kyrgyz with hypertension, diabetes mellitus, hyperlipidemia who presented to the hospital on 07/06 via EMS with worsening subjective fevers, headache, body ache, dry cough, dyspnea on exertion, fatigue, headache and nausea since the last week end of May. Patient had a positive COVID-19 PCR on 07/05 as outside facility. Upon arrival to the emergency department patient was hypoxic on room air at 75% and tachypneic. Work-up in the emergency department with a CXR which showed bilateral pneumonia, lactic acidosis at 2.3, acute kidney injury at 1.6/45, elevated D-dimer, elevated troponin and slight hyponatremia 136. Patient received Rocephin, azithromycin and Decadron in the emergency department. Patient was admitted to the hospitalist service as a COVID-19 PUI, acute kidney injury, sepsis, lactic acidosis, and elevated D-dimer with consults to pulmonology and infectious disease. 07/06: COVID-19 PCR positive, azithromycin and Rocephin, Decadron and remdesivir therapy 07/07: Patient is on 100% FiO2 BiPAP therapy with SPO2 in the low 90s and high 80s, hypoxia and ABG, sinus bradycardia noted overnight. Repeat CXR shows persistent diffuse pulmonary process and pulmonary edema therefore she received 40 mg of Lasix x1 and a proBNP is pending per [facility] 07/08: Patient remains on antibiotic therapy, kidney function tests have not worsened, sinus bradycardia still persist and steroid dosing was increased today by [facility]. Patient's daughter was updated today 07/09: Overnight it was noted that the patient developed bilateral small pneumothorax on AM CXR. She still remains on 100% FiO2 via Bipap and her ABG shows hypoxia. Her steroid therapy was changed per [facility] and she received lasix x1 today. Hospitalist Physical - Constitutional Vitals: Temp Pulse Resp BP Pulse Ox 98.0 F 63 19 132/59 89 07/09/20 12:00 07/09/20 08:30 07/09/20 08:30 07/09/20 08:30 07/09/20 08:30 General appearance: Present: mild distress, obese - EENT Eyes: Present: EOM intact ENT: hearing decreased - Neck Neck: Present: normal ROM - Respiratory Respiratory effort: normal Respiratory: bilateral: diminished - Cardiovascular Rhythm: regular Heart Sounds: Present: S1 & S2. Absent: systolic murmur, diastolic murmur - Extremities Extremities: no ischemia, pulses intact, pulses symmetrical, No edema, normal temperature, normal color, Full ROM Peripheral Pulses: within normal limits - Abdominal General gastrointestinal: soft, non-tender, non-distended, normal bowel sounds - Integumentary Integumentary: Present: clear, warm, dry - Psychiatric Psychiatric: cooperative - Neurologic Neurologic: CNII-XII intact, no focal deficits, moves all extremities - Allied Health Allied health notes reviewed: nursing HEART Score - HEART Score Troponin: Troponin T < 0.010 ng/mL (0.00-0.029) 07/07/20 00:22 Results - Labs CBC & Chem 7: 07/09/20 06:51 07/09/20 06:51 Labs: Laboratory Last Values WBC 10.0 K/mm3 (4.5-11.0) 07/09/20 06:51 RBC 4.54 M/mm3 (3.65-5.03) 07/09/20 06:51 Hgb 11.7 gm/dl (10.1-14.3) 07/09/20 06:51 Hct 35.7 % (30.3-42.9) 07/09/20 06:51 MCV 79 fl (79-97) 07/09/20 06:51 MCH 26 pg (28-32) L 07/09/20 06:51 MCHC 33 % (30-34) 07/09/20 06:51 RDW 13.9 % (13.2-15.2) 07/09/20 06:51 Plt Count 219 K/mm3 (140-440) 07/09/20 06:51 Lymph % (Auto) 4.3 % (13.4-35.0) L 07/09/20 06:51 [place] % (Auto) 3.6 % (0.0-7.3) 07/09/20 06:51 Eos % (Auto) 0.6 % (0.0-4.3) 07/09/20 06:51 Baso % (Auto) 0.3 % (0.0-1.8) 07/09/20 06:51 Lymph # (Auto) 0.4 K/mm3 (1.2-5.4) L 07/09/20 06:51 [place] # (Auto) 0.4 K/mm3 (0.0-0.8) 07/09/20 06:51 Eos # (Auto) 0.1 K/mm3 (0.0-0.4) 07/09/20 06:51 Baso # (Auto) 0.0 K/mm3 (0.0-0.1) 07/09/20 06:51 Add Manual Diff Complete 07/09/20 06:51 Total Counted 100 07/09/20 06:51 Seg Neutrophils % Street [employer] 07/09/20 06:51 Seg Neuts % (Manual) 85.0 % (40.0-70.0) H 07/07/20 02:42 Band Neutrophils % 4.0 % 07/07/20 02:42 Lymphocytes % (Manual) 1.0 % (13.4-35.0) L 07/09/20 06:51 Monocytes % (Manual) 1.0 % (0.0-7.3) 07/09/20 06:51 Metamyelocytes % 3.0 % 07/06/20 08:50 Nucleated RBC % Not Reportable 07/09/20 06:51 Seg Neutrophils # 9.1 K/mm3 (1.8-7.7) H 07/09/20 06:51 Seg Neutrophils # Man 9.8 K/mm3 (1.8-7.7) H 07/09/20 06:51 Band Neutrophils # 0.0 K/mm3 07/09/20 06:51 Lymphocytes # (Manual) 0.1 K/mm3 (1.2-5.4) L 07/09/20 06:51 Abs React Lymphs (Man) 0.0 K/mm3 07/09/20 06:51 Monocytes # (Manual) 0.1 K/mm3 (0.0-0.8) 07/09/20 06:51 Eosinophils # (Manual) 0.0 K/mm3 (0.0-0.4) 07/09/20 06:51 Basophils # (Manual) 0.0 K/mm3 (0.0-0.1) 07/09/20 06:51 Metamyelocytes # 0.0 K/mm3 07/09/20 06:51 Myelocytes # 0.0 K/mm3 07/09/20 06:51 Promyelocytes # 0.0 K/mm3 07/09/20 06:51 Blast Cells # 0.0 K/mm3 07/09/20 06:51 WBC Morphology Not Reportable 07/09/20 06:51 Hypersegmented Neuts Not Reportable 07/09/20 06:51 Hyposegmented Neuts Not Reportable 07/09/20 06:51 Hypogranular Neuts Not Reportable 07/09/20 06:51 Smudge Cells Not Reportable 07/09/20 06:51 Toxic Granulation Not Reportable 07/09/20 06:51 Toxic Vacuolation Not Reportable 07/09/20 06:51 Dohle Bodies Not Reportable 07/09/20 06:51 Pelger-Huet Anomaly Not Reportable 07/09/20 06:51 Rudy Rods Not Reportable 07/09/20 06:51 Platelet Estimate Consistent w auto 07/09/20 06:51 Clumped Platelets Not Reportable 07/09/20 06:51 Plt Clumps, EDTA Not Reportable 07/09/20 06:51 Large Platelets Not Reportable 07/09/20 06:51 Giant Platelets Not Reportable 07/09/20 06:51 Platelet Satelliting Not Reportable 07/09/20 06:51 Plt Morphology Comment Not Reportable 07/09/20 06:51 RBC Morphology Not Reportable 07/09/20 06:51 Dimorphic RBCs Not Reportable 07/09/20 06:51 Polychromasia Few 07/09/20 06:51 Hypochromasia Not Reportable 07/09/20 06:51 Poikilocytosis Not Reportable 07/09/20 06:51 Anisocytosis Not Reportable 07/09/20 06:51 Microcytosis Not Reportable 07/09/20 06:51 Macrocytosis Rare 07/09/20 06:51 Spherocytes Not Reportable 07/09/20 06:51 Pappenheimer Bodies Not Reportable 07/09/20 06:51 Sickle Cells Not Reportable 07/09/20 06:51 Target Cells Not Reportable 07/09/20 06:51 Tear Drop Cells Not Reportable 07/09/20 06:51 Ovalocytes Not Reportable 07/09/20 06:51 Helmet Cells Not Reportable 07/09/20 06:51 [place] Bodies Not Reportable 07/09/20 06:51 [place] Rings Not Reportable 07/09/20 06:51 Eliane Cells Not Reportable 07/09/20 06:51 Bite Cells Not Reportable 07/09/20 06:51 Crenated Cell Not Reportable 07/09/20 06:51 Elliptocytes Not Reportable 07/09/20 06:51 Acanthocytes (Spur) Not Reportable 07/09/20 06:51 Rouleaux Not Reportable 07/09/20 06:51 Hemoglobin C Crystals Not Reportable 07/09/20 06:51 Schistocytes Not Reportable 07/09/20 06:51 Malaria parasites Not Reportable 07/09/20 06:51 Shreyas Bodies Not Reportable 07/09/20 06:51 Hem Pathologist Commnt No 07/09/20 06:51 PT 14.7 Sec. (12.2-14.9) 07/06/20 08:50 INR 1.15 (0.87-1.13) H 07/06/20 08:50 APTT 25.9 Sec. (24.2-36.6) 07/06/20 08:50 D-Dimer 2542.57 ng/mlDDU (0-234) H 07/08/20 05:07 ABG pH 7.487 (7.320-7.450) H 07/08/20 02:39 POC ABG pCO2 32.8 mmHg (32.0-48.0) 07/08/20 02:39 POC ABG pO2 52.5 mmHg (83-108) L 07/08/20 02:39 POC ABG HCO3 24.3 07/08/20 02:39 POC ABG Base Excess 1.3 07/08/20 02:39 ABG Hemoglobin 11.8 (12.0-17.5) L 07/08/20 02:39 ABG Oxyhemoglobin 88.3 (94-98) L 07/07/20 02:19 ABG Methemoglobin 0.3 (0.0-1.5) 07/07/20 02:19 ABG Sodium 137.3 mmol/L (136.0-145.0) 07/08/20 02:39 ABG Potassium 4.3 mmol/L (3.40-4.50) 07/08/20 02:39 ABG Chloride 105.0 mmol/L (98-107) 07/08/20 02:39 ABG Glucose 336 mg/dL (65-95) H 07/08/20 02:39 Carboxyhemoglobin 0.2 (0.5-1.5) L 07/07/20 02:19 FiO2 100 07/08/20 02:39 Sodium 147 mmol/L (137-145) H 07/09/20 06:51 Potassium 4.8 mmol/L (3.6-5.0) 07/09/20 06:51 Chloride 111.9 mmol/L (98-107) H 07/09/20 06:51 Carbon Dioxide 25 mmol/L (22-30) 07/09/20 06:51 Anion Gap 15 mmol/L 07/09/20 06:51 BUN 52 mg/dL (7-17) H 07/09/20 06:51 Creatinine 1.0 mg/dL (0.6-1.2) 07/09/20 06:51 Estimated GFR 55 ml/min 07/09/20 06:51 BUN/Creatinine Ratio 52 % 07/09/20 06:51 Glucose 207 mg/dL (65-100) H 07/09/20 06:51 POC Glucose 176 mg/dL (70-105) H 07/09/20 12:10 Hemoglobin A1c 11.8 % (4-6) H 07/06/20 15:44 Lactic Acid 1.60 mmol/L (0.7-2.0) 07/07/20 08:55 Calcium 8.9 mg/dL (8.4-10.2) 07/09/20 06:51 Ferritin 975.6 ng/mL (10.0-200.0) H 07/08/20 05:07 Total Bilirubin 0.80 mg/dL (0.1-1.2) 07/09/20 06:51 AST 22 units/L (5-40) 07/09/20 06:51 ALT 18 units/L (7-56) 07/09/20 06:51 Alkaline Phosphatase 116 units/L (35-129) 07/09/20 06:51 Lactate Dehydrogenase 683 units/L (91-180) H 07/06/20 15:44 Total Creatine Kinase 47 units/L (30-135) 07/07/20 00:22 CK-MB (CK-2) 1.6 ng/mL (0.0-4.0) 07/07/20 00:22 CK-MB (CK-2) Rel Index 3.4 (0-4) 07/07/20 00:22 Troponin T < 0.010 ng/mL (0.00-0.029) 07/07/20 00:22 C-Reactive Protein 4.30 mg/dL (0.00-1.30) H 07/08/20 05:07 NT-Pro-B Natriuret Pep 459.9 pg/mL (0-900) 07/07/20 14:31 Total Protein 7.0 g/dL (6.3-8.2) 07/09/20 06:51 Albumin 3.2 g/dL (3.9-5) L 07/09/20 06:51 Albumin/Globulin Ratio 0.8 % 07/09/20 06:51 Procalcitonin 7.48 ng/mL (<0.15) 07/06/20 15:44 TSH 0.420 mlU/mL (0.270-4.200) 07/08/20 05:07 Arterial Blood Glucose 336 mg/dL (65-95) H 07/08/20 02:39 Arterial Blood Ionized Calcium 4.6 mg/dL (4.6-5.3) 07/08/20 02:39 Urine Color Yellow (Yellow) 07/07/20 03:35 Urine Turbidity Clear (Clear) 07/07/20 03:35 Urine pH 5.0 (5.0-7.0) 07/07/20 03:35 Ur Specific [place] 1.026 (1.003-1.030) 07/07/20 03:35 Urine Protein 30 mg/dl mg/dL (Negative) 07/07/20 03:35 Urine Glucose (UA) >=500 mg/dL (Negative) 07/07/20 03:35 Urine Ketones Neg mg/dL (Negative) 07/07/20 03:35 Urine Blood Neg (Negative) 07/07/20 03:35 Urine Nitrite Neg (Negative) 07/07/20 03:35 Urine Bilirubin Neg (Negative) 07/07/20 03:35 Urine Urobilinogen 2.0 mg/dL (<2.0) 07/07/20 03:35 Ur Leukocyte Esterase Neg (Negative) 07/07/20 03:35 Urine WBC (Auto) < 1.0 /HPF (0.0-6.0) 07/07/20 03:35 Urine RBC (Auto) 0.0 /HPF (0.0-6.0) 07/07/20 03:35 U Epithel Cells (Auto) < 1.0 /HPF (0-13.0) 07/07/20 03:35 Urine Bacteria (Auto) 1+ /HPF (Negative) 07/07/20 03:35 Urine Osmolality 731 Mosm/kg 07/07/20 03:35 Urine Sodium 54 mmol/L 07/07/20 03:35 Coronavirus (PCR) Positive (Negative) A 07/06/20 09:26 Microbiology: Microbiology 07/06/20 08:50 Peripheral/Venous Blood Culture - Preliminary NO GROWTH AFTER 72 HOURS 07/06/20 08:50 Peripheral/Venous Blood Culture - Preliminary NO GROWTH AFTER 72 HOURS - Diagnostic Impressions Diagnostic Impressions: Echocardiogram 07/08/20 09:36 Transthoracic Echocardiogram Indication: Chest pain BP: 129/66 HR: 67 Conclusions *The study is technically limited due to poor acoustic windows. *Global left ventricular systolic function is normal. *The estimated ejection fraction is greater than 55-60%. *Mild concentric left ventricular hypertrophy is observed. *There is trace of mitral regurgitation. *The right heart chambers are not well visualized. Findings Procedure Info: The study quality is poor. The study is technically limited due to poor acoustic windows. Left Ventricle: The left ventricular chamber size is normal. Mild concentric left ventricular hypertrophy is observed. Global left ventricular systolic function is normal. The estimated ejection fraction is 55-60%. Left Atrium: The left atrial chamber size is normal. Right Ventricle: The right ventricle is not well visualized. Right Atrium: The right atrium is not well visualized. Aortic Valve: The aortic valve leaflets are mildly thickened. There is no evidence of aortic regurgitation. There is no evidence of aortic stenosis. Mitral Valve: The mitral valve leaflets are mildly thickened. There is trace of mitral regurgitation. There is no evidence of mitral stenosis. Tricuspid Valve: The tricuspid valve is not well visualized. Pulmonic Valve: The pulmonic valve is not well visualized. Pericardium: There is no pericardial effusion. Aorta: There is no dilatation of the aortic root. Venous: The inferior vena cava appears normal in size. Measurements Chambers 2D Name Value Normal Range IVSd (2D) 1.02 cm (0.6 - 1.1) LVPWd (2D) 1.02 cm (0.6 - 1.1) LVIDd (2D) 4.88 cm (3.7 - 5.6) LVIDs (2D) 3.22 cm (2 - 3.8) LV FS (2D) 33.94 % - EF Teichholz (2D) 62.68 % - Ao root diameter (2D) 2.8 cm (2 - 3.7) Diastolic/Systolic Function Name Value Normal Range MV E-wave Vmax 0.37 m/sec - MV deceleration time 185.21 msec - MV A-wave Vmax 0.35 m/sec - MV E:A ratio 1.07 ratio - Aortic Valve Name Value Normal Range AV Vmax 1.29 m/sec - AV VTI 24.04 cm - AV peak gradient 6.69 mmHg - AV mean gradient 3.19 mmHg - LVOT diameter 2.01 cm - LVOT Vmax 1.07 m/sec - LVOT VTI 21.78 cm - LVOT peak gradient 4.56 mmHg - LVOT mean gradient 2.37 mmHg - SV LVOT 69.26 ml - LEOBARDO (continuity Vmax) 2.63 cm2 - LEOBARDO (continuity VTI) 2.88 cm2 - Pulmonic Valve/Qp:Qs Name Value Normal Range PV acceleration time 95.15 msec - Beal/IV: Voiding Method External Female Catheter Active Medications - Current Medications Current Medications: Generic Name Dose Route Start Last Admin Trade Name Freq PRN Reason Stop Dose Admin Acetaminophen 650 mg 07/06/20 11:01 Acetaminophen 325 Mg Tab PO Q4H PRN Pain MILD(1-3)/Fever >100.5/OHARA Acetaminophen 650 mg 07/08/20 01:34 07/08/20 02:04 Acetaminophen 650 Mg Rect Supp HI 650 mg Q4H PRN Administration PainMild (1-3),fever>100.5,OHARA Al Hydrox/Mg Hydrox/Simethicone 30 ml 07/06/20 11:01 Alum-Mag Hydroxide-Simethicone [phone]/5ml Oral Liqd 30 Ml PO Q4H PRN Indigestion Ascorbic Acid 500 mg 07/06/20 16:00 07/09/20 10:04 Ascorbic Acid 500 Mg Tab PO Not Given QDAY MITALI Dextrose 50 ml 07/06/20 11:01 Dextrose 50% In Water (25gm) 50 Ml Syringe IV Q30MIN PRN Hypoglycemia Protocol Docusate Sodium 100 mg 07/06/20 22:00 07/09/20 10:03 Docusate Sodium 100 Mg Cap PO Not Given BID MITALI Famotidine 20 mg 07/07/20 10:00 07/09/20 10:02 Famotidine 20 Mg/2 Ml Inj IV 20 mg DAILY MITALI Administration Heparin Sodium (Porcine) 7,500 unit 07/07/20 14:00 07/09/20 05:32 Heparin 5,000 Unit/1 Ml Vial SUB-Q 7,500 unit Q8HR MITALI Administration Hydralazine HCl 10 mg 07/07/20 07:28 Hydralazine 20 Mg/1 Ml Inj IV Q4HR PRN Hypertension Hydralazine HCl 10 mg 07/07/20 08:00 07/09/20 05:37 Hydralazine 10 Mg Tab PO Not Given Q8HR MITALI Ceftriaxone Sodium 2 gm in 100 mls @ 200 mls/hr 07/07/20 10:00 07/09/20 10:03 Rocephin/Ns 2 Gm/100 Ml IV 07/11/20 10:29 200 mls/hr Q24HR MITALI Administration Protocol REMDESIVIR 100 mg/ Sodium 250 mls @ 500 mls/hr 07/07/20 21:00 07/08/20 22:10 Chloride IV 07/10/20 21:29 500 mls/hr Q24HR@2100 MITALI Administration Azithromycin 500 mg in 250 mls @ 250 mls/hr 07/07/20 10:00 07/09/20 12:01 Zithromax/Ns IV 07/11/20 09:59 250 mls/hr Q24H MITALI Administration Insulin Human Isoph/Insulin Regular 12 unit 07/09/20 08:00 07/09/20 08:34 Insulin Nph/Regular 70/30 Inj SUB-Q 12 unit BIDDIAB MITALI Administration Insulin Human Lispro 0 unit 07/07/20 09:00 07/09/20 05:54 Insulin Lispro 100 Unit/Ml SUB-Q 3 unit Q6HR MITALI Administration Protocol Lorazepam 0.5 mg 07/08/20 11:00 07/08/20 11:20 Lorazepam 2 Mg/Ml Vial IV 0.5 mg Q4H PRN Administration Anxiety Methylprednisolone Sodium Succinate 60 mg 07/08/20 13:00 07/09/20 11:47 Methylprednisolone Sod Succinate 125 Mg/2 Ml Inj IV 60 mg Q6HR MITALI Administration Ondansetron HCl 4 mg 07/06/20 11:01 Ondansetron 4 Mg/2 Ml Inj IV Q8H PRN Nausea And Vomiting Oxycodone/Acetaminophen 1 tab 07/06/20 11:01 Oxycodone /Acetaminophen 5-325mg Tab PO Q6H PRN Pain, Moderate (4-6) Senna 8.6 mg 07/06/20 22:00 07/09/20 10:03 Sennosides 8.6 Mg Tab PO Not Given Q12HR MITALI Sodium Chloride 10 ml 07/06/20 22:00 07/09/20 10:03 Sodium Chloride 0.9% 10 Ml Flush Syringe IV 10 ml BID MITALI Administration Sodium Chloride 10 ml 07/06/20 11:01 Sodium Chloride 0.9% 10 Ml Flush Syringe IV PRN PRN LINE FLUSH Sodium Chloride 50 ml 07/06/20 16:00 07/08/20 22:10 Sodium Chloride 0.9% 50 Ml Ivpb IV 07/09/20 21:01 50 ml Q24HR@2100 MITALI Administration Zinc Sulfate 220 mg 07/06/20 16:00 07/09/20 10:04 Zinc Sulfate 220 Mg Cap PO Not Given QDAY [facility], [facility]
--- NOTE | 2020-07-09 15:14 | Progress Note ---
Assessment and Plan Cultures: SARS CoV2 PCR: Positive 07/06/2020 blood culture: No growth A/P: 69-year-old female with hypertension, diabetes: #Sepsis: Secondary to COVID-19 #Bilateral pneumonia: Secondary to COVID-19 #Acute hypoxic respiratory failure: On HFNC/BiPAP #CARMEN: Monitor renal function #Elevated D-dimer: VTE evaluation negative. Recs: -continue steroids, dosing per ICU -Continue empiric antibiotics x 5 days due to elevated procalcitonin -continue IV remdesivir, D4 -prophylactic anticoagulation based on d-dimer per hospital protocol -trend ferritin, LDH, d-dimer, CRP every 2-3 days for risk stratification and to assess disease progression -guarded prognosis Yuliet Leija MD, FACP [facility] ([facility] O: [phone] F: [phone] Subjective Date of service: 07/09/20 Interval history: No fever. Remains on BiPAP. Objective - Exam Narrative Exam: Physical Exam (reviewed in chart to minimize risk of transmission) Constitutional: deferred Head, Ears, Nose: deferred Eyes: deferred Neck: deferred Oral: deferred Cardiovascular: deferred Respiratory: deferred GI: deferred Musculoskeletal: deferred Skin: deferred Hem/Lymphatic: deferred Psych: deferred Neurological: deferred - Constitutional Vitals: Vital Signs Temp Pulse Resp BP Pulse Ox 98.0 F 61 24 115/74 95 07/09/20 12:00 07/09/20 14:00 07/09/20 14:00 07/09/20 14:00 07/09/20 14:00 Temperature -Last 24 Hours Temperature 98.0 F Temperature 98.1 F Temperature 97.8 F Temperature 97.5 F Temperature 98.1 F - Labs CBC & Chem 7: 07/09/20 06:51 07/09/20 06:51 Labs: Abnormal lab results 07/08/20 07/08/20 07/08/20 Range/Units 11:39 17:57 21:26 MCH (28-32) pg Lymph % (Auto) (13.4-35.0) % Lymph # (Auto) (1.2-5.4) K/mm3 Lymphocytes % (Manual) (13.4-35.0) % Seg Neutrophils # (1.8-7.7) K/mm3 Seg Neutrophils # Man (1.8-7.7) K/mm3 Lymphocytes # (Manual) (1.2-5.4) K/mm3 Sodium (137-145) mmol/L Chloride (98-107) mmol/L BUN (7-17) mg/dL Glucose (65-100) mg/dL POC Glucose 285 H 221 H 232 H (70-105) mg/dL Albumin (3.9-5) g/dL 07/08/20 07/09/20 07/09/20 Range/Units 23:29 05:29 06:51 MCH 26 L (28-32) pg Lymph % (Auto) 4.3 L (13.4-35.0) % Lymph # (Auto) 0.4 L (1.2-5.4) K/mm3 Lymphocytes % (Manual) 1.0 L (13.4-35.0) % Seg Neutrophils # 9.1 H (1.8-7.7) K/mm3 Seg Neutrophils # Man 9.8 H (1.8-7.7) K/mm3 Lymphocytes # (Manual) 0.1 L (1.2-5.4) K/mm3 Sodium (137-145) mmol/L Chloride (98-107) mmol/L BUN (7-17) mg/dL Glucose (65-100) mg/dL POC Glucose 231 H 196 H (70-105) mg/dL Albumin (3.9-5) g/dL 07/09/20 07/09/20 Range/Units 06:51 12:10 MCH (28-32) pg Lymph % (Auto) (13.4-35.0) % Lymph # (Auto) (1.2-5.4) K/mm3 Lymphocytes % (Manual) (13.4-35.0) % Seg Neutrophils # (1.8-7.7) K/mm3 Seg Neutrophils # Man (1.8-7.7) K/mm3 Lymphocytes # (Manual) (1.2-5.4) K/mm3 Sodium 147 H (137-145) mmol/L Chloride 111.9 H (98-107) mmol/L BUN 52 H (7-17) mg/dL Glucose 207 H (65-100) mg/dL POC Glucose 176 H (70-105) mg/dL Albumin 3.2 L (3.9-5) g/dL
[2020-07-09] MEDS: ACETAMINOPHEN 325 MG TAB PO PRN (16:35)
--- NOTE | 2020-07-09 18:09 | Progress Note ---
Assessment and Plan - Patient Problems (1) Elevated troponin Current Visit: Yes Status: Acute Plan to address problem: Minimal, nonspecific troponin elevation in the patient admitted with acute COVID-19 pneumonia. Echocardiogram shows normal left ventricular systolic function with ejection fraction 55 to 60%. No active cardiac issues, we will follow intermittently. Subjective Date of service: 07/09/20 Interval history: Patient is lethargic, on BiPAP, telemetry shows sinus rhythm at 60, blood pressure 128 systolic. Objective Vital Signs Temp Pulse Pulse Resp BP Pulse Ox 07/09/20 16:00 98.4 F 55 L 95 07/09/20 14:00 61 24 115/74 95 07/09/20 13:30 67 32 H 115/74 69 L 07/09/20 13:00 66 24 115/74 91 07/09/20 12:30 74 32 H 132/63 88 07/09/20 12:00 98.0 F 59 L 38 H 119/83 92 07/09/20 11:30 61 20 130/57 90 07/09/20 11:00 55 L 22 130/57 91 07/09/20 10:30 59 L 29 H 119/69 90 07/09/20 10:00 65 26 H 121/68 84 07/09/20 09:30 53 L 25 H 87 07/09/20 09:00 60 23 121/68 91 07/09/20 08:30 63 19 132/59 89 07/09/20 08:09 90 07/09/20 08:03 92 07/09/20 08:00 78 34 H 119/83 83 L 07/09/20 07:30 54 L 20 119/83 91 07/09/20 07:00 98.1 F 61 23 119/83 90 07/09/20 06:30 56 L 26 H 137/80 91 07/09/20 06:00 57 L 26 H 137/80 88 07/09/20 05:37 59 L 128/50 07/09/20 05:30 66 21 128/50 89 07/09/20 05:00 63 122/73 90 07/09/20 04:30 59 L 122/73 90 07/09/20 04:00 57 L 25 H 128/50 92 07/09/20 03:30 58 L 23 113/74 86 07/09/20 03:23 97.8 F 07/09/20 03:00 61 23 111/75 89 07/09/20 02:30 60 24 111/75 90 07/09/20 02:00 111/75 88 07/09/20 01:30 121/71 89 07/09/20 01:13 59 L 60 22 88 07/09/20 01:00 58 L 24 121/71 89 07/09/20 00:30 59 L 25 H 141/117 87 07/09/20 00:08 56 L 28 H 141/117 89 07/09/20 00:00 59 L 60 29 H 114/60 85 07/08/20 23:53 57 L 29 H 114/60 88 07/08/20 23:49 97.5 F L 07/08/20 23:30 64 20 114/60 94 07/08/20 23:00 59 L 25 H 114/60 88 07/08/20 22:41 60 115/71 07/08/20 22:30 60 37 H 115/71 88 07/08/20 22:10 60 22 88 07/08/20 22:00 60 32 H 115/71 89 07/08/20 21:30 62 29 H 124/73 85 07/08/20 21:00 62 25 H 124/73 87 07/08/20 20:30 65 25 H 127/62 88 07/08/20 20:00 59 L 32 H 132/69 85 07/08/20 19:39 98.1 F 07/08/20 19:30 58 L 28 H 129/64 87 07/08/20 19:25 58 L 60 22 88 07/08/20 19:00 58 L 26 H 132/69 89 07/08/20 18:30 62 23 129/64 90 - Physical Examination Narrative exam: Full physical exam is deferred due to patient's positive COVID-19 status. General: Other (on Bipap) - Labs and Meds Cardiac Enzymes 07/09/20 Range/Units 06:51 AST 22 (5-40) units/L CBC 07/09/20 Range/Units 06:51 WBC 10.0 (4.5-11.0) K/mm3 RBC 4.54 (3.65-5.03) M/mm3 Hgb 11.7 (10.1-14.3) gm/dl Hct 35.7 (30.3-42.9) % Plt Count 219 (140-440) K/mm3 Lymph # (Auto) 0.4 L (1.2-5.4) K/mm3 [place] # (Auto) 0.4 (0.0-0.8) K/mm3 Eos # (Auto) 0.1 (0.0-0.4) K/mm3 Baso # (Auto) 0.0 (0.0-0.1) K/mm3 Comprehensive Metabolic Panel 07/09/20 Range/Units 06:51 Sodium 147 H (137-145) mmol/L Potassium 4.8 (3.6-5.0) mmol/L Chloride 111.9 H (98-107) mmol/L Carbon Dioxide 25 (22-30) mmol/L BUN 52 H (7-17) mg/dL Creatinine 1.0 (0.6-1.2) mg/dL Glucose 207 H (65-100) mg/dL Calcium 8.9 (8.4-10.2) mg/dL AST 22 (5-40) units/L ALT 18 (7-56) units/L Alkaline Phosphatase 116 (35-129) units/L Total Protein 7.0 (6.3-8.2) g/dL Albumin 3.2 L (3.9-5) g/dL
[2020-07-09] MEDS: SODIUM CHLORIDE 0.9% 50 ML IVPB IV SCH (21:26)
[2020-07-09] MEDS: REMDESIVIR 100 MG in SODIUM CHLORIDE 0.9% 250ML 250 ML IV SCH (21:26)
[2020-07-09] MEDS: LORazepam 2 MG/ML VIAL IV PRN (21:41)
[2020-07-10] MEDS: methylPREDNISolone Sod Succinate 125 MG/2 ML INJ IV SCH ×4 (00:44→17:25)
[2020-07-10] MEDS: LORazepam 2 MG/ML VIAL IV PRN ×5 (00:45→21:28)
[2020-07-10] MEDS: INSULIN LISPRO 100 UNIT/ML SUB-Q SCH ×5 (00:50→23:29)
[2020-07-10] MEDS: HEPARIN 5,000 UNIT/1 ML VIAL SUB-Q SCH ×3 (00:50→14:45)
[2020-07-10] MEDS: hydrALAZINE 10 MG TAB PO SCH ×3 (05:29→22:38)
[2020-07-10 06:01] LABS: Hematocrit 35.4 % (30.3-42.9); Hemoglobin 11.7 gm/dl (10.1-14.3); Mean Corpuscular HGB Conc 33 % (30-34); Mean Corpuscular Volume 80 fl (79-97); Platelet Count 231 K/mm3 (140-440); Red Blood Count 4.43 M/mm3 (3.65-5.03)
[2020-07-10 06:21] LABS: Albumin 3.3 g/dL (3.9-5); Calcium 9.3 mg/dL (8.4-10.2)
[2020-07-10 06:28] LABS: C-Reactive Protein 2.8 mg/dL (0.00-1.30)
[2020-07-10 07:13] LABS: Anisocytosis Few; Macrocytosis Few; Total Cells Counted 100
[2020-07-10 07:14] LABS: Hypersegmented Neutrophils Few; Ovalocytes Few; Platelet Estimate Consistent w Auto; Tear Drop Cells Rare
[2020-07-10] MEDS ORDERED: HALOPERIDOL LACTATE 5 MG/1 ML INJ IM PRN (08:39)
--- NOTE | 2020-07-10 08:40 | Progress Note ---
Assessment and Plan 69 y/o female, covid positive admitted with acute respiratory failure. 07/10/20: Updated daughter this morning. Will hold on intubation as of right now. Will add scheduled haldol to see if this helps patient to relax and not fight the bipap mask. Really trying to avoid intubation given her COVID positive state and history of outcomes of ventilated patients. Will continue steroids at 60q6. Need to address nutrition soon. If intubated then will place NG/OG tube for supplementation. No further lasix as no improvement. Guarded p rognosis. No current indication for ABG. Know that O2 will be marginal given requirements. Will cancel current order. 07/09/20: Continue steroids and Remdesivir. I increased steroids to 60q6 on . Continue NPO state and Continue bipap. Trying very had to not intubate but given lack of improvement and lack of nutrition, may have to electively do so in the next 12-24 hours. Will give a small dose of IV lasix today. Prognosis is very very guarded. Apparently is upstairs as well. 07/08/20: BNP was high normal, hold on lasix today. Continue steroids and remdesivir, may consider increasing steroids to BID. Continue bipap, NPO. Will give some ativan, very low dose PRN to see if this helps with work of breathing. Sinus ravindra is stable. Guarded prognosis. Doing everything to prevent extubation. 1. Will check bnP 2. Agree with steroids and remdesivir 3. Lasix 40mg IV x1 given today 4. Continue bipap for now, wean for sats >88% but wait a few hours until lasix is given. 5. PRone is possible 6. Guarded prognosis. If BNP elevated would need echo 7. Spoke with nursing about bradycardia, sinus on EKG, but if persistently low in 30's please repeat EKG Subjective Date of service: 07/10/20 Interval history: Patient very restless. Still wanting to eat and pulling mask off. At the [facility] de with RT and Nurse. Patient is awake. Objective Vital Signs - 12hr 07/09/20 07/09/20 07/09/20 21:00 21:30 22:00 Temperature Pulse Rate 51 L 52 L 59 L Pulse Rate [ From Monitor] Respiratory 24 23 25 H Rate Blood Pressure 111/58 111/58 111/58 O2 Sat by Pulse 95 93 88 Oximetry 07/09/20 07/09/20 07/09/20 22:30 23:00 23:30 Temperature Pulse Rate 57 L 63 69 Pulse Rate [ From Monitor] Respiratory 20 26 H 26 H Rate Blood Pressure 127/58 110/51 110/51 O2 Sat by Pulse 96 92 Oximetry 07/09/20 07/09/20 07/10/20 23:44 23:48 00:00 Temperature 98.4 F Pulse Rate 54 L 55 L Pulse Rate [ From Monitor] Respiratory 25 H 25 H Rate Blood Pressure 110/51 110/51 O2 Sat by Pulse 92 87 Oximetry 07/10/20 07/10/20 07/10/20 00:10 00:30 01:00 Temperature Pulse Rate 54 L 72 65 Pulse Rate [ From Monitor] Respiratory 17 24 24 Rate Blood Pressure 132/60 132/60 132/60 O2 Sat by Pulse 93 92 90 Oximetry 07/10/20 07/10/20 07/10/20 01:30 02:00 02:30 Temperature Pulse Rate 49 L 58 L 57 L Pulse Rate [ From Monitor] Respiratory 23 29 H 21 Rate Blood Pressure 132/60 132/60 118/46 O2 Sat by Pulse 90 94 92 Oximetry 07/10/20 07/10/20 07/10/20 03:00 03:16 03:30 Temperature 98.9 F Pulse Rate 71 Pulse Rate [ From Monitor] Respiratory 28 H 20 Rate Blood Pressure 112/63 112/63 O2 Sat by Pulse 86 91 Oximetry 07/10/20 07/10/20 07/10/20 03:50 04:00 04:30 Temperature Pulse Rate 60 75 60 Pulse Rate [ From Monitor] Respiratory 30 H 21 21 Rate Blood Pressure 167/65 104/58 122/57 O2 Sat by Pulse 100 90 92 Oximetry 07/10/20 07/10/20 07/10/20 05:00 05:30 06:00 Temperature Pulse Rate 56 L 74 69 Pulse Rate [ From Monitor] Respiratory 20 34 H 12 Rate Blood Pressure 118/68 118/68 127/65 O2 Sat by Pulse 92 82 L 89 Oximetry 07/10/20 07/10/20 07/10/20 06:30 07:00 07:30 Temperature Pulse Rate 84 72 59 L Pulse Rate [ From Monitor] Respiratory 22 20 22 Rate Blood Pressure 127/65 127/65 127/65 O2 Sat by Pulse 92 94 94 Oximetry 07/10/20 07/10/20 08:00 08:33 Temperature Pulse Rate 65 69 Pulse Rate [ 67 From Monitor] Respiratory 19 27 H Rate Blood Pressure 124/68 124/68 O2 Sat by Pulse 95 94 Oximetry Constitutional: no acute distress, alert, other (full face mask on for bipap therapy.) Eyes: non-icteric Neck: supple Ascultation: Bilateral: diminished breath sounds CBC and BMP: 07/10/20 05:25 07/10/20 05:25 ABG, PT/INR, D-dimer: ABG ABG pH 7.487 (7.320-7.450) H 07/08/20 02:39 POC ABG pCO2 32.8 mmHg (32.0-48.0) 07/08/20 02:39 POC ABG pO2 52.5 mmHg (83-108) L 07/08/20 02:39 POC ABG HCO3 24.3 07/08/20 02:39 PT/INR, D-dimer PT 14.7 Sec. (12.2-14.9) 07/06/20 08:50 INR 1.15 (0.87-1.13) H 07/06/20 08:50 D-Dimer 1786.87 ng/mlDDU (0-234) H 07/10/20 05:25 Abnormal lab findings: Abnormal Labs 07/06/20 07/06/20 07/06/20 08:50 08:50 08:50 MCV 78 L MCH 26 L Lymph % (Auto) Lymph # (Auto) Seg Neutrophils % Seg Neuts % (Manual) 80.0 H Lymphocytes % (Manual) 10.0 L Nucleated RBC % 4.0 H Seg Neutrophils # Seg Neutrophils # Man Lymphocytes # (Manual) 0.9 L INR 1.15 H D-Dimer 1435.13 H ABG pH POC ABG pCO2 POC ABG pO2 ABG Hemoglobin ABG Oxyhemoglobin ABG Glucose Carboxyhemoglobin Sodium 136 L Chloride BUN 45 H Creatinine 1.6 H Glucose 385 H POC Glucose Hemoglobin A1c Lactic Acid Ferritin Alkaline Phosphatase 130 H Lactate Dehydrogenase Troponin T 0.034 H C-Reactive Protein Albumin 3.2 L Arterial Blood Glucose Coronavirus (PCR) 07/06/20 07/06/20 07/06/20 08:50 08:50 08:50 MCV MCH Lymph % (Auto) Lymph # (Auto) Seg Neutrophils % Seg Neuts % (Manual) Lymphocytes % (Manual) Nucleated RBC % Seg Neutrophils # Seg Neutrophils # Man Lymphocytes # (Manual) INR D-Dimer ABG pH POC ABG pCO2 POC ABG pO2 ABG Hemoglobin ABG Oxyhemoglobin ABG Glucose Carboxyhemoglobin Sodium Chloride BUN Creatinine Glucose 385 H POC Glucose Hemoglobin A1c Lactic Acid 2.30 H* Ferritin 1158.0 H Alkaline Phosphatase Lactate Dehydrogenase 471 H Troponin T C-Reactive Protein 10.40 H Albumin Arterial Blood Glucose Coronavirus (PCR) 07/06/20 07/06/20 07/06/20 09:26 15:44 15:44 MCV MCH Lymph % (Auto) Lymph # (Auto) Seg Neutrophils % Seg Neuts % (Manual) Lymphocytes % (Manual) Nucleated RBC % Seg Neutrophils # Seg Neutrophils # Man Lymphocytes # (Manual) INR D-Dimer ABG pH POC ABG pCO2 POC ABG pO2 ABG Hemoglobin ABG Oxyhemoglobin ABG Glucose Carboxyhemoglobin Sodium Chloride BUN Creatinine Glucose POC Glucose Hemoglobin A1c 11.8 H Lactic Acid 2.40 H* Ferritin Alkaline Phosphatase Lactate Dehydrogenase Troponin T C-Reactive Protein Albumin Arterial Blood Glucose Coronavirus (PCR) Positive A 07/06/20 07/06/20 07/06/20 15:44 17:40 20:35 MCV MCH Lymph % (Auto) Lymph # (Auto) Seg Neutrophils % Seg Neuts % (Manual) Lymphocytes % (Manual) Nucleated RBC % Seg Neutrophils # Seg Neutrophils # Man Lymphocytes # (Manual) INR D-Dimer ABG pH 7.455 H POC ABG pCO2 30.9 L POC ABG pO2 50.0 L ABG Hemoglobin 11.1 L ABG Oxyhemoglobin 80.6 L ABG Glucose 357 H Carboxyhemoglobin 0.3 L Sodium Chloride BUN Creatinine Glucose POC Glucose 324 H Hemoglobin A1c Lactic Acid Ferritin Alkaline Phosphatase Lactate Dehydrogenase 683 H Troponin T C-Reactive Protein Albumin Arterial Blood Glucose 357 H Coronavirus (PCR) 07/06/20 07/06/20 07/07/20 21:49 23:52 02:19 MCV MCH Lymph % (Auto) Lymph # (Auto) Seg Neutrophils % Seg Neuts % (Manual) Lymphocytes % (Manual) Nucleated RBC % Seg Neutrophils # Seg Neutrophils # Man Lymphocytes # (Manual) INR D-Dimer ABG pH 7.455 H POC ABG pCO2 31.9 L POC ABG pO2 50.7 L 62.0 L ABG Hemoglobin 10.8 L 10.8 L ABG Oxyhemoglobin 80.2 L 88.3 L ABG Glucose 358 H 330 H Carboxyhemoglobin 0.2 L 0.2 L Sodium Chloride BUN Creatinine Glucose POC Glucose 336 H Hemoglobin A1c Lactic Acid Ferritin Alkaline Phosphatase Lactate Dehydrogenase Troponin T C-Reactive Protein Albumin Arterial Blood Glucose 358 H 330 H Coronavirus (PCR) 07/07/20 07/07/20 07/07/20 02:42 02:42 07:54 MCV MCH 26 L Lymph % (Auto) Lymph # (Auto) Seg Neutrophils % Seg Neuts % (Manual) 85.0 H Lymphocytes % (Manual) 6.0 L Nucleated RBC % Seg Neutrophils # Seg Neutrophils # Man 7.9 H Lymphocytes # (Manual) 0.6 L INR D-Dimer ABG pH POC ABG pCO2 POC ABG pO2 ABG Hemoglobin ABG Oxyhemoglobin ABG Glucose Carboxyhemoglobin Sodium Chloride BUN 47 H Creatinine 1.3 H Glucose 336 H POC Glucose 289 H Hemoglobin A1c Lactic Acid Ferritin Alkaline Phosphatase Lactate Dehydrogenase Troponin T C-Reactive Protein Albumin Arterial Blood Glucose Coronavirus (PCR) 07/07/20 07/07/20 07/07/20 11:07 15:40 23:27 MCV MCH Lymph % (Auto) Lymph # (Auto) Seg Neutrophils % Seg Neuts % (Manual) Lymphocytes % (Manual) Nucleated RBC % Seg Neutrophils # Seg Neutrophils # Man Lymphocytes # (Manual) INR D-Dimer ABG pH POC ABG pCO2 POC ABG pO2 ABG Hemoglobin ABG Oxyhemoglobin ABG Glucose Carboxyhemoglobin Sodium Chloride BUN Creatinine Glucose POC Glucose 322 H 346 H 274 H Hemoglobin A1c Lactic Acid Ferritin Alkaline Phosphatase Lactate Dehydrogenase Troponin T C-Reactive Protein Albumin Arterial Blood Glucose Coronavirus (PCR) 07/08/20 07/08/20 07/08/20 02:39 05:07 05:07 MCV MCH Lymph % (Auto) Lymph # (Auto) Seg Neutrophils % Seg Neuts % (Manual) Lymphocytes % (Manual) Nucleated RBC % Seg Neutrophils # Seg Neutrophils # Man Lymphocytes # (Manual) INR D-Dimer 2542.57 H ABG pH 7.487 H POC ABG pCO2 POC ABG pO2 52.5 L ABG Hemoglobin 11.8 L ABG Oxyhemoglobin ABG Glucose 336 H Carboxyhemoglobin Sodium Chloride BUN 51 H Creatinine Glucose 326 H POC Glucose Hemoglobin A1c Lactic Acid Ferritin Alkaline Phosphatase Lactate Dehydrogenase Troponin T C-Reactive Protein 4.30 H Albumin 3.2 L Arterial Blood Glucose 336 H Coronavirus (PCR) 07/08/20 07/08/20 07/08/20 05:07 05:07 05:21 MCV MCH 25 L Lymph % (Auto) 7.9 L Lymph # (Auto) 0.6 L Seg Neutrophils % 85.6 H Seg Neuts % (Manual) Lymphocytes % (Manual) Nucleated RBC % Seg Neutrophils # Seg Neutrophils # Man Lymphocytes # (Manual) INR D-Dimer ABG pH POC ABG pCO2 POC ABG pO2 ABG Hemoglobin ABG Oxyhemoglobin ABG Glucose Carboxyhemoglobin Sodium Chloride BUN Creatinine Glucose POC Glucose 293 H Hemoglobin A1c Lactic Acid Ferritin 975.6 H Alkaline Phosphatase Lactate Dehydrogenase Troponin T C-Reactive Protein Albumin Arterial Blood Glucose Coronavirus (PCR) 07/08/20 07/08/20 07/08/20 08:59 11:39 17:57 MCV MCH Lymph % (Auto) Lymph # (Auto) Seg Neutrophils % Seg Neuts % (Manual) Lymphocytes % (Manual) Nucleated RBC % Seg Neutrophils # Seg Neutrophils # Man Lymphocytes # (Manual) INR D-Dimer ABG pH POC ABG pCO2 POC ABG pO2 ABG Hemoglobin ABG Oxyhemoglobin ABG Glucose Carboxyhemoglobin Sodium Chloride BUN Creatinine Glucose POC Glucose 270 H 285 H 221 H Hemoglobin A1c Lactic Acid Ferritin Alkaline Phosphatase Lactate Dehydrogenase Troponin T C-Reactive Protein Albumin Arterial Blood Glucose Coronavirus (PCR) 07/08/20 07/08/20 07/09/20 21:26 23:29 05:29 MCV MCH Lymph % (Auto) Lymph # (Auto) Seg Neutrophils % Seg Neuts % (Manual) Lymphocytes % (Manual) Nucleated RBC % Seg Neutrophils # Seg Neutrophils # Man Lymphocytes # (Manual) INR D-Dimer ABG pH POC ABG pCO2 POC ABG pO2 ABG Hemoglobin ABG Oxyhemoglobin ABG Glucose Carboxyhemoglobin Sodium Chloride BUN Creatinine Glucose POC Glucose 232 H 231 H 196 H Hemoglobin A1c Lactic Acid Ferritin Alkaline Phosphatase Lactate Dehydrogenase Troponin T C-Reactive Protein Albumin Arterial Blood Glucose Coronavirus (PCR) 07/09/20 07/09/20 07/09/20 06:51 06:51 12:10 MCV MCH 26 L Lymph % (Auto) 4.3 L Lymph # (Auto) 0.4 L Seg Neutrophils % Seg Neuts % (Manual) Lymphocytes % (Manual) 1.0 L Nucleated RBC % Seg Neutrophils # 9.1 H Seg Neutrophils # Man 9.8 H Lymphocytes # (Manual) 0.1 L INR D-Dimer ABG pH POC ABG pCO2 POC ABG pO2 ABG Hemoglobin ABG Oxyhemoglobin ABG Glucose Carboxyhemoglobin Sodium 147 H Chloride 111.9 H BUN 52 H Creatinine Glucose 207 H POC Glucose 176 H Hemoglobin A1c Lactic Acid Ferritin Alkaline Phosphatase Lactate Dehydrogenase Troponin T C-Reactive Protein Albumin 3.2 L Arterial Blood Glucose Coronavirus (PCR) 07/09/20 07/09/20 07/10/20 17:49 23:36 05:25 MCV MCH Lymph % (Auto) Lymph # (Auto) Seg Neutrophils % Seg Neuts % (Manual) Lymphocytes % (Manual) Nucleated RBC % Seg Neutrophils # Seg Neutrophils # Man Lymphocytes # (Manual) INR D-Dimer 1786.87 H ABG pH POC ABG pCO2 POC ABG pO2 ABG Hemoglobin ABG Oxyhemoglobin ABG Glucose Carboxyhemoglobin Sodium Chloride BUN Creatinine Glucose POC Glucose 196 H 154 H Hemoglobin A1c Lactic Acid Ferritin Alkaline Phosphatase Lactate Dehydrogenase Troponin T C-Reactive Protein Albumin Arterial Blood Glucose Coronavirus (PCR) 07/10/20 07/10/20 07/10/20 05:25 05:25 05:25 MCV MCH 27 L Lymph % (Auto) Lymph # (Auto) Seg Neutrophils % Seg Neuts % (Manual) 92.0 H Lymphocytes % (Manual) 3.0 L Nucleated RBC % Seg Neutrophils # Seg Neutrophils # Man 9.5 H Lymphocytes # (Manual) 0.3 L INR D-Dimer ABG pH POC ABG pCO2 POC ABG pO2 ABG Hemoglobin ABG Oxyhemoglobin ABG Glucose Carboxyhemoglobin Sodium 152 H Chloride 112.8 H BUN 60 H Creatinine Glucose 204 H POC Glucose Hemoglobin A1c Lactic Acid Ferritin 920.8 H Alkaline Phosphatase Lactate Dehydrogenase Troponin T C-Reactive Protein 2.80 H Albumin 3.3 L Arterial Blood Glucose Coronavirus (PCR)
[2020-07-10] MEDS: FAMOTIDINE 20 MG/2 ML INJ IV SCH (09:03)
[2020-07-10] MEDS: HALOPERIDOL LACTATE 5 MG/1 ML INJ IV PRN ×2 (09:03→20:10)
[2020-07-10] MEDS: cefTRIAXone/NS 2 GM/100 ML 2 GM/100 ML BAG IV SCH (09:03)
[2020-07-10] MEDS: INSULIN NPH/REGULAR 70/30 INJ SUB-Q SCH ×2 (09:03→17:25)
[2020-07-10] MEDS: ZINC SULFATE 220 MG CAP PO SCH (09:04)
[2020-07-10] MEDS: SENNOSIDES 8.6 MG TAB PO SCH ×2 (09:04→22:39)
[2020-07-10] MEDS: DOCUSATE SODIUM 100 MG CAP PO SCH ×2 (09:04→22:39)
[2020-07-10] MEDS: ASCORBIC ACID 500 MG TAB PO SCH (09:04)
[2020-07-10] MEDS: AZITHROMYCIN/NS 500 MG/250 ML 500 MG/250 ML BAG IV SCH (10:02)
--- NOTE | 2020-07-10 12:37 | Progress Note ---
Assessment and Plan Assessment and plan: Sepsis -Presented with hypoxia, tachypnea and acute hypoxic respiratory failure, acute kidney injury, pneumonia on CXR and COVID-19 infection -07/06 blood cultures x2 pending -Antibiotic therapy -Infectious disease consulted, appreciate recommendations COVID-19 infection -07/06 CXR shows diffuse hazy bilateral lung opacities concerning for viral infection, atypical pneumonia or pulmonary edema with no pleural effusions or pneumothorax -07/06 COVID-19 PCR positive -07/05 COVID-19 PCR at outside facility positive -Infectious disease and pulmonology consulted, appreciate recommendations -Contact/droplet isolation -Pulmonary hygiene -Supplemental oxygen as needed -Antibiotic therapy -07/07 remdesivir therapy started -Steroid therapy, increased by CCM -OOB 3 times daily -Prone to sleep as needed -Anticoagulation per protocol -Vitamin C, vitamin D and zinc -SPO2 monitoring Bilateral pneumonia -07/06 CXR shows diffuse hazy bilateral lung opacities concerning for viral infection, atypical pneumonia or pulmonary edema with no pleural effusions or pneumothorax -Secondary to COVID-19 infection -Antibiotic therapy -Infectious disease consulted, appreciate recommendation -07/06 blood cultures x2 no growth to date Elevated D-dimer -Admit D-dimer 1435 -07/06 nuclear medicine perfusion study shows low probability of pulmonary embolism -07/06 bilateral lower extremity Doppler ultrasound negative for DVT/SVT Acute hypoxic respiratory failure -Room air SPO2 75% and placed on high flow nasal cannula -Pulmonary consulted, patient recommendations -Steroid therapy -Supplemental oxygen as needed -Pulmonary hygiene -SPO2 monitoring -07/07 AB.4/32 point 5/62/20 2.3 with a base excess of -1 on 100% FiO2 via Bi PAP -07/07 CXR: Persistent diffuse pulmonary process, pulmonary edema is a concern -07/07 lasix 40mg x1, 07/09 lasix x1 -07/07 proBNP 459 Elevated troponin/SB -Presented with a troponin of 0.034 -07/06 troponin less than 0.10 -Cardiology consulted, appreciate recommendations -EKG as needed -No complaints of chest pain -Cardiology believes elevated troponin is in setting of acute kidney injury Acute kidney injury -12/2016 creatinine/BUN 0.9/15 -Presented with a creatinine/BUN 1.6/45 -07/07 BUN/Cr 47/1.3, 07/08 BUN/Cr 51/1.2 -Trend BMP -Consider nephrology consult if not improving Lactic acidosis -Presented with a lactic acid of 2.3 -Trend lactic acid -07/07 LA 1.6 Hypernatremia -07/09 sodium 147 -Gentle hypotonic solution if repeat sodium still elevated Hyperchloremia -07/09 chloride 111 -Trend BMP Hypertension -Restart home antihypertensive regimen once obtained -Hydralazine as needed for SBP greater than 160 -Blood pressure monitoring per protocol Diabetes mellitus -07/06 hemoglobin A1c 11.8 -SSI -CC cardiac diet -Accu-Cheks AC at bedtime -Hypoglycemia protocol -07/06 70/30 initiated, titrate as needed DVT prophylaxis -Heparin subcu -GI prophylaxis -SCDs to bilateral lower extremities while in bed History Interval history: This is a 69-year-old Laotian female with limited Tamaz[place] with hypertension, diabetes mellitus, hyperlipidemia who presented to the hospital on 07/06 via EMS with worsening subjective fevers, headache, body ache, dry cough, dyspnea on exertion, fatigue, headache and nausea since the last week end of May. Patient had a positive COVID-19 PCR on 07/05 as outside facility. Upon arrival to the emergency department patient was hypoxic on room air at 75% and tachypneic. Work-up in the emergency department with a CXR which showed bilateral pneumonia, lactic acidosis at 2.3, acute kidney injury at 1.6/45, elevated D-dimer, elevated troponin and slight hyponatremia 136. Patient received Rocephin, azithromycin and Decadron in the emergency department. Patient was admitted to the hospitalist service as a COVID-19 PUI, acute kidney injury, sepsis, lactic acidosis, and elevated D-dimer with consults to pulmonology and infectious disease. 07/06: COVID-19 PCR positive, azithromycin and Rocephin, Decadron and remdesivir therapy 07/07: Patient is on 100% FiO2 BiPAP therapy with SPO2 in the low 90s and high 80s, hypoxia and ABG, sinus bradycardia noted overnight. Repeat CXR shows persistent diffuse pulmonary process and pulmonary edema therefore she received 40 mg of Lasix x1 and a proBNP is pending per [facility] 07/08: Patient remains on antibiotic therapy, kidney function tests have not worsened, sinus bradycardia still persist and steroid dosing was increased today by [facility]. Patient's daughter was updated today 07/09: Overnight it was noted that the patient developed bilateral small pneumothorax on AM CXR. She still remains on 100% FiO2 via Bipap and her ABG shows hypoxia. Her steroid therapy was changed per [facility] and she received lasix x1 today. 07/10. Still remains hypoxic on BiPAP. Labs reviewed-sodium 152 today. Hold off on IV fluids for today due to ongoing respiratory difficulty. Trend sodium for now and if elevated tomorrow we will start on hypotonic solution. Possible extubation in the next 24 hours if no improvement in respiratory status. Critical care on board Hospitalist Physical - Physical exam Narrative exam: VITAL SIGNS: Reviewed. GENERAL: Awake on BiPAP HEAD: No signs of head trauma. EYES: Pupils are equal. Extraocular motions intact. MOUTH: Oropharynx is normal. NECK: No adenopathy, no JVD. CHEST: Diminished breath sounds bilaterally CARDIAC: normal S1 and S2, without murmurs, gallops, or rubs. ABDOMEN: Soft, non tender and non distended. No rebound or guarding, and no masses palpated. Bowel Sounds normal. MUSCULOSKELETAL: No edema NEUROLOGIC EXAM: Alert on BiPAP SKIN: No obvious lesions - Constitutional Vitals: Temp Pulse Resp BP Pulse Ox 97.5 F L 56 L 18 111/66 99 07/10/20 08:00 07/10/20 12:00 07/10/20 11:23 07/10/20 12:00 07/10/20 12:00 HEART Score - HEART Score Troponin: Troponin T < 0.010 ng/mL (0.00-0.029) 07/07/20 00:22 Results - Labs CBC & Chem 7: 07/10/20 05:25 07/10/20 05:25 Labs: Laboratory Last Values WBC 10.3 K/mm3 (4.5-11.0) 07/10/20 05:25 RBC 4.43 M/mm3 (3.65-5.03) 07/10/20 05:25 Hgb 11.7 gm/dl (10.1-14.3) 07/10/20 05:25 Hct 35.4 % (30.3-42.9) 07/10/20 05:25 MCV 80 fl (79-97) 07/10/20 05:25 MCH 27 pg (28-32) L 07/10/20 05:25 MCHC 33 % (30-34) 07/10/20 05:25 RDW 14.0 % (13.2-15.2) 07/10/20 05:25 Plt Count 231 K/mm3 (140-440) 07/10/20 05:25 Lymph % (Auto) 4.3 % (13.4-35.0) L 07/09/20 06:51 Rooks % (Auto) 3.6 % (0.0-7.3) 07/09/20 06:51 Eos % (Auto) 0.6 % (0.0-4.3) 07/09/20 06:51 Baso % (Auto) 0.3 % (0.0-1.8) 07/09/20 06:51 Lymph # (Auto) 0.4 K/mm3 (1.2-5.4) L 07/09/20 06:51 Rooks # (Auto) 0.4 K/mm3 (0.0-0.8) 07/09/20 06:51 Eos # (Auto) 0.1 K/mm3 (0.0-0.4) 07/09/20 06:51 Baso # (Auto) 0.0 K/mm3 (0.0-0.1) 07/09/20 06:51 Add Manual Diff Complete 07/10/20 05:25 Total Counted 100 07/10/20 05:25 Seg Neutrophils % Furnace [employer]airer 07/10/20 05:25 Seg Neuts % (Manual) 92.0 % (40.0-70.0) H 07/10/20 05:25 Band Neutrophils % 4.0 % 07/07/20 02:42 Lymphocytes % (Manual) 3.0 % (13.4-35.0) L 07/10/20 05:25 Monocytes % (Manual) 4.0 % (0.0-7.3) 07/10/20 05:25 Metamyelocytes % 1.0 % 07/10/20 05:25 Nucleated RBC % Not Reportable 07/10/20 05:25 Seg Neutrophils # 9.1 K/mm3 (1.8-7.7) H 07/09/20 06:51 Seg Neutrophils # Man 9.5 K/mm3 (1.8-7.7) H 07/10/20 05:25 Band Neutrophils # 0.0 K/mm3 07/10/20 05:25 Lymphocytes # (Manual) 0.3 K/mm3 (1.2-5.4) L 07/10/20 05:25 Abs React Lymphs (Man) 0.0 K/mm3 07/10/20 05:25 Monocytes # (Manual) 0.4 K/mm3 (0.0-0.8) 07/10/20 05:25 Eosinophils # (Manual) 0.0 K/mm3 (0.0-0.4) 07/10/20 05:25 Basophils # (Manual) 0.0 K/mm3 (0.0-0.1) 07/10/20 05:25 Metamyelocytes # 0.1 K/mm3 07/10/20 05:25 Myelocytes # 0.0 K/mm3 07/10/20 05:25 Promyelocytes # 0.0 K/mm3 07/10/20 05:25 Blast Cells # 0.0 K/mm3 07/10/20 05:25 WBC Morphology Not Reportable 07/10/20 05:25 Hypersegmented Neuts Few 07/10/20 05:25 Hyposegmented Neuts Not Reportable 07/10/20 05:25 Hypogranular Neuts Not Reportable 07/10/20 05:25 Smudge Cells Not Reportable 07/10/20 05:25 Toxic Granulation Not Reportable 07/10/20 05:25 Toxic Vacuolation Not Reportable 07/10/20 05:25 Dohle Bodies Not Reportable 07/10/20 05:25 Pelger-Huet Anomaly Not Reportable 07/10/20 05:25 Rudy Rods Not Reportable 07/10/20 05:25 Platelet Estimate Consistent w auto 07/10/20 05:25 Clumped Platelets Not Reportable 07/10/20 05:25 Plt Clumps, EDTA Not Reportable 07/10/20 05:25 Large Platelets Not Reportable 07/10/20 05:25 Giant Platelets Not Reportable 07/10/20 05:25 Platelet Satelliting Not Reportable 07/10/20 05:25 Plt Morphology Comment Not Reportable 07/10/20 05:25 RBC Morphology Not Reportable 07/10/20 05:25 Dimorphic RBCs Not Reportable 07/10/20 05:25 Polychromasia Not Reportable 07/10/20 05:25 Hypochromasia Not Reportable 07/10/20 05:25 Poikilocytosis Not Reportable 07/10/20 05:25 Anisocytosis Few 07/10/20 05:25 Microcytosis Few 07/10/20 05:25 Macrocytosis Few 07/10/20 05:25 Spherocytes Not Reportable 07/10/20 05:25 Pappenheimer Bodies Not Reportable 07/10/20 05:25 Sickle Cells Not Reportable 07/10/20 05:25 Target Cells Not Reportable 07/10/20 05:25 Tear Drop Cells Rare 07/10/20 05:25 Ovalocytes Few 07/10/20 05:25 Helmet Cells Not Reportable 07/10/20 05:25 [place] Bodies Not Reportable 07/10/20 05:25 [place] Rings Not Reportable 07/10/20 05:25 Eliane Cells Not Reportable 07/10/20 05:25 Bite Cells Not Reportable 07/10/20 05:25 Crenated Cell Not Reportable 07/10/20 05:25 Elliptocytes Not Reportable 07/10/20 05:25 Acanthocytes (Spur) Not Reportable 07/10/20 05:25 Rouleaux Not Reportable 07/10/20 05:25 Hemoglobin C Crystals Not Reportable 07/10/20 05:25 Schistocytes Not Reportable 07/10/20 05:25 Malaria parasites Not Reportable 07/10/20 05:25 Shreyas Bodies Not Reportable 07/10/20 05:25 Hem Pathologist Commnt No 07/10/20 05:25 PT 14.7 Sec. (12.2-14.9) 07/06/20 08:50 INR 1.15 (0.87-1.13) H 07/06/20 08:50 APTT 25.9 Sec. (24.2-36.6) 07/06/20 08:50 D-Dimer 1786.87 ng/mlDDU (0-234) H 07/10/20 05:25 ABG pH 7.487 (7.320-7.450) H 07/08/20 02:39 POC ABG pCO2 32.8 mmHg (32.0-48.0) 07/08/20 02:39 POC ABG pO2 52.5 mmHg (83-108) L 07/08/20 02:39 POC ABG HCO3 24.3 07/08/20 02:39 POC ABG Base Excess 1.3 07/08/20 02:39 ABG Hemoglobin 11.8 (12.0-17.5) L 07/08/20 02:39 ABG Oxyhemoglobin 88.3 (94-98) L 07/07/20 02:19 ABG Methemoglobin 0.3 (0.0-1.5) 07/07/20 02:19 ABG Sodium 137.3 mmol/L (136.0-145.0) 07/08/20 02:39 ABG Potassium 4.3 mmol/L (3.40-4.50) 07/08/20 02:39 ABG Chloride 105.0 mmol/L (98-107) 07/08/20 02:39 ABG Glucose 336 mg/dL (65-95) H 07/08/20 02:39 Carboxyhemoglobin 0.2 (0.5-1.5) L 07/07/20 02:19 FiO2 100 07/08/20 02:39 Sodium 152 mmol/L (137-145) H 07/10/20 05:25 Potassium 3.8 mmol/L (3.6-5.0) D 07/10/20 05:25 Chloride 112.8 mmol/L (98-107) H 07/10/20 05:25 Carbon Dioxide 24 mmol/L (22-30) 07/10/20 05:25 Anion Gap 19 mmol/L 07/10/20 05:25 BUN 60 mg/dL (7-17) H 07/10/20 05:25 Creatinine 1.2 mg/dL (0.6-1.2) 07/10/20 05:25 Estimated GFR 44 ml/min 07/10/20 05:25 BUN/Creatinine Ratio 50 % 07/10/20 05:25 Glucose 204 mg/dL (65-100) H 07/10/20 05:25 POC Glucose 178 mg/dL (70-105) H 07/10/20 05:17 Hemoglobin A1c 11.8 % (4-6) H 07/06/20 15:44 Lactic Acid 1.60 mmol/L (0.7-2.0) 07/07/20 08:55 Calcium 9.3 mg/dL (8.4-10.2) 07/10/20 05:25 Ferritin 920.8 ng/mL (10.0-200.0) H 07/10/20 05:25 Total Bilirubin 0.90 mg/dL (0.1-1.2) 07/10/20 05:25 AST 24 units/L (5-40) 07/10/20 05:25 ALT 19 units/L (7-56) 07/10/20 05:25 Alkaline Phosphatase 121 units/L (35-129) 07/10/20 05:25 Lactate Dehydrogenase 683 units/L (91-180) H 07/06/20 15:44 Total Creatine Kinase 47 units/L (30-135) 07/07/20 00:22 CK-MB (CK-2) 1.6 ng/mL (0.0-4.0) 07/07/20 00:22 CK-MB (CK-2) Rel Index 3.4 (0-4) 07/07/20 00:22 Troponin T < 0.010 ng/mL (0.00-0.029) 07/07/20 00:22 C-Reactive Protein 2.80 mg/dL (0.00-1.30) H 07/10/20 05:25 NT-Pro-B Natriuret Pep 459.9 pg/mL (0-900) 07/07/20 14:31 Total Protein 6.9 g/dL (6.3-8.2) 07/10/20 05:25 Albumin 3.3 g/dL (3.9-5) L 07/10/20 05:25 Albumin/Globulin Ratio 0.9 % 07/10/20 05:25 Procalcitonin 7.48 ng/mL (<0.15) 07/06/20 15:44 TSH 0.420 mlU/mL (0.270-4.200) 07/08/20 05:07 Arterial Blood Glucose 336 mg/dL (65-95) H 07/08/20 02:39 Arterial Blood Ionized Calcium 4.6 mg/dL (4.6-5.3) 07/08/20 02:39 Urine Color Yellow (Yellow) 07/07/20 03:35 Urine Turbidity Clear (Clear) 07/07/20 03:35 Urine pH 5.0 (5.0-7.0) 07/07/20 03:35 Ur Specific Grant 1.026 (1.003-1.030) 07/07/20 03:35 Urine Protein 30 mg/dl mg/dL (Negative) 07/07/20 03:35 Urine Glucose (UA) >=500 mg/dL (Negative) 07/07/20 03:35 Urine Ketones Neg mg/dL (Negative) 07/07/20 03:35 Urine Blood Neg (Negative) 07/07/20 03:35 Urine Nitrite Neg (Negative) 07/07/20 03:35 Urine Bilirubin Neg (Negative) 07/07/20 03:35 Urine Urobilinogen 2.0 mg/dL (<2.0) 07/07/20 03:35 Ur Leukocyte Esterase Neg (Negative) 07/07/20 03:35 Urine WBC (Auto) < 1.0 /HPF (0.0-6.0) 07/07/20 03:35 Urine RBC (Auto) 0.0 /HPF (0.0-6.0) 07/07/20 03:35 U Epithel Cells (Auto) < 1.0 /HPF (0-13.0) 07/07/20 03:35 Urine Bacteria (Auto) 1+ /HPF (Negative) 07/07/20 03:35 Urine Osmolality 731 Mosm/kg 07/07/20 03:35 Urine Sodium 54 mmol/L 07/07/20 03:35 Coronavirus (PCR) Positive (Negative) A 07/06/20 09:26 Microbiology: Microbiology 07/06/20 08:50 Peripheral/Venous Blood Culture - Preliminary NO GROWTH AFTER 4 DAYS 07/06/20 08:50 Peripheral/Venous Blood Culture - Preliminary NO GROWTH AFTER 4 DAYS - Diagnostic Impressions Diagnostic Impressions: Echocardiogram 07/08/20 09:36 Transthoracic Echocardiogram Indication: Chest pain BP: 129/66 HR: 67 Conclusions *The study is technically limited due to poor acoustic windows. *Global left ventricular systolic function is normal. *The estimated ejection fraction is greater than 55-60%. *Mild concentric left ventricular hypertrophy is observed. *There is trace of mitral regurgitation. *The right heart chambers are not well visualized. Findings Procedure Info: The study quality is poor. The study is technically limited due to poor acoustic windows. Left Ventricle: The left ventricular chamber size is normal. Mild concentric left ventricular hypertrophy is observed. Global left ventricular systolic function is normal. The estimated ejection fraction is 55-60%. Left Atrium: The left atrial chamber size is normal. Right Ventricle: The right ventricle is not well visualized. Right Atrium: The right atrium is not well visualized. Aortic Valve: The aortic valve leaflets are mildly thickened. There is no evidence of aortic regurgitation. There is no evidence of aortic stenosis. Mitral Valve: The mitral valve leaflets are mildly thickened. There is trace of mitral regurgitation. There is no evidence of mitral stenosis. Tricuspid Valve: The tricuspid valve is not well visualized. Pulmonic Valve: The pulmonic valve is not well visualized. Pericardium: There is no pericardial effusion. Aorta: There is no dilatation of the aortic root. Venous: The inferior vena cava appears normal in size. Measurements Chambers 2D Name Value Normal Range IVSd (2D) 1.02 cm (0.6 - 1.1) LVPWd (2D) 1.02 cm (0.6 - 1.1) LVIDd (2D) 4.88 cm (3.7 - 5.6) LVIDs (2D) 3.22 cm (2 - 3.8) LV FS (2D) 33.94 % - EF Teichholz (2D) 62.68 % - Ao root diameter (2D) 2.8 cm (2 - 3.7) Diastolic/Systolic Function Name Value Normal Range MV E-wave Vmax 0.37 m/sec - MV deceleration time 185.21 msec - MV A-wave Vmax 0.35 m/sec - MV E:A ratio 1.07 ratio - Aortic Valve Name Value Normal Range AV Vmax 1.29 m/sec - AV VTI 24.04 cm - AV peak gradient 6.69 mmHg - AV mean gradient 3.19 mmHg - LVOT diameter 2.01 cm - LVOT Vmax 1.07 m/sec - LVOT VTI 21.78 cm - LVOT peak gradient 4.56 mmHg - LVOT mean gradient 2.37 mmHg - SV LVOT 69.26 ml - LEOBARDO (continuity Vmax) 2.63 cm2 - LEOBARDO (continuity VTI) 2.88 cm2 - Pulmonic Valve/Qp:Qs Name Value Normal Range PV acceleration time 95.15 msec - Beal/IV: Voiding Method External Female Catheter Active Medications - Current Medications Current Medications: Generic Name Dose Route Start Last Admin Trade Name Freq PRN Reason Stop Dose Admin Acetaminophen 650 mg 07/06/20 11:01 07/09/20 16:35 Acetaminophen 325 Mg Tab PO 650 mg Q4H PRN Administration Pain MILD(1-3)/Fever >100.5/OHARA Acetaminophen 650 mg 07/08/20 01:34 07/08/20 02:04 Acetaminophen 650 Mg Rect Supp NE 650 mg Q4H PRN Administration PainMild (1-3),fever>100.5,OHARA Al Hydrox/Mg Hydrox/Simethicone 30 ml 07/06/20 11:01 Alum-Mag Hydroxide-Simethicone [phone]/5ml Oral Liqd 30 Ml PO Q4H PRN Indigestion Ascorbic Acid 500 mg 07/06/20 16:00 07/10/20 09:04 Ascorbic Acid 500 Mg Tab PO Not Given QDAY MITALI Dextrose 50 ml 07/06/20 11:01 Dextrose 50% In Water (25gm) 50 Ml Syringe IV Q30MIN PRN Hypoglycemia Protocol Docusate Sodium 100 mg 07/06/20 22:00 07/10/20 09:04 Docusate Sodium 100 Mg Cap PO Not Given BID MITALI Famotidine 20 mg 07/07/20 10:00 07/10/20 09:03 Famotidine 20 Mg/2 Ml Inj IV 20 mg DAILY MITALI Administration Haloperidol Lactate 5 mg 07/10/20 09:00 07/10/20 09:03 Haloperidol Lactate 5 Mg/1 Ml Inj IV 5 mg Q6H PRN Administration Agitation Heparin Sodium (Porcine) 7,500 unit 07/07/20 14:00 07/10/20 05:47 Heparin 5,000 Unit/1 Ml Vial SUB-Q 7,500 unit Q8HR MITALI Administration Hydralazine HCl 10 mg 07/07/20 07:28 Hydralazine 20 Mg/1 Ml Inj IV Q4HR PRN Hypertension Hydralazine HCl 10 mg 07/07/20 08:00 07/10/20 05:29 Hydralazine 10 Mg Tab PO Not Given Q8HR MITALI Ceftriaxone Sodium 2 gm in 100 mls @ 200 mls/hr 07/07/20 10:00 07/10/20 09:03 Rocephin/Ns 2 Gm/100 Ml IV 07/11/20 10:29 200 mls/hr Q24HR MITALI Administration Protocol REMDESIVIR 100 mg/ Sodium 250 mls @ 500 mls/hr 07/07/20 21:00 07/10/20 05:50 Chloride IV 07/10/20 21:29 Infused Q24HR@2100 MITALI Infusion Azithromycin 500 mg in 250 mls @ 250 mls/hr 07/07/20 10:00 07/10/20 10:02 Zithromax/Ns IV 07/11/20 09:59 250 mls/hr Q24H MITALI Administration Insulin Human Isoph/Insulin Regular 12 unit 07/09/20 08:00 07/10/20 09:03 Insulin Nph/Regular 70/30 Inj SUB-Q 12 unit BIDDIAB MITALI Administration Insulin Human Lispro 0 unit 07/07/20 09:00 07/10/20 05:47 Insulin Lispro 100 Unit/Ml SUB-Q 3 unit Q6HR MITALI Administration Protocol Lorazepam 0.5 mg 07/08/20 11:00 07/10/20 09:45 Lorazepam 2 Mg/Ml Vial IV 0.5 mg Q4H PRN Administration Anxiety Methylprednisolone Sodium Succinate 60 mg 07/08/20 13:00 07/10/20 05:28 Methylprednisolone Sod Succinate 125 Mg/2 Ml Inj IV 60 mg Q6HR MITALI Administration Ondansetron HCl 4 mg 07/06/20 11:01 Ondansetron 4 Mg/2 Ml Inj IV Q8H PRN Nausea And Vomiting Oxycodone/Acetaminophen 1 tab 07/06/20 11:01 Oxycodone /Acetaminophen 5-325mg Tab PO Q6H PRN Pain, Moderate (4-6) Senna 8.6 mg 07/06/20 22:00 07/10/20 09:04 Sennosides 8.6 Mg Tab PO Not Given Q12HR MITALI Sodium Chloride 10 ml 07/06/20 22:00 07/10/20 09:04 Sodium Chloride 0.9% 10 Ml Flush Syringe IV 10 ml BID MITALI Administration Sodium Chloride 10 ml 07/06/20 11:01 Sodium Chloride 0.9% 10 Ml Flush Syringe IV PRN PRN LINE FLUSH Zinc Sulfate 220 mg 07/06/20 16:00 07/10/20 09:04 Zinc Sulfate 220 Mg Cap PO Not Given QDAY [facility]
[2020-07-10] MEDS ORDERED: ZIPRASIDONE MESYLATE 20 MG VIAL IM SCH (14:30)
--- NOTE | 2020-07-10 16:11 | Progress Note ---
Assessment and Plan Cultures: SARS CoV2 PCR: Positive 07/06/2020 blood culture: No growth A/P: 69-year-old female with hypertension, diabetes: #Sepsis: Secondary to COVID-19 #Bilateral pneumonia: Secondary to COVID-19 #Acute hypoxic respiratory failure: On HFNC/BiPAP #CARMEN: Monitor renal function #Elevated D-dimer: VTE evaluation negative. Recs: -continue steroids, dosing per ICU -Continue empiric antibiotics x 5 days due to elevated procalcitonin -continue IV remdesivir, D5 -prophylactic anticoagulation based on d-dimer per hospital protocol -trend ferritin, LDH, d-dimer, CRP every 2-3 days for risk stratification and to assess disease progression -guarded prognosis Addison Kathleen MD [facility] O: [phone] F: [phone] Subjective Date of service: 07/10/20 Interval history: Afebrile, normal white count. On BiPAP. Objective - Exam Narrative Exam: Physical exam deferred due to PPE conservation strategy. Please refer to primary team's note. - Constitutional Vitals: Vital Signs Temp Pulse Resp BP Pulse Ox 97.3 F L 89 20 131/67 87 07/10/20 12:00 07/10/20 16:00 07/10/20 16:00 07/10/20 16:00 07/10/20 16:00 Temperature -Last 24 Hours Temperature 97.3 F Temperature 97.5 F Temperature 98.9 F Temperature 98.4 F Temperature 98.2 F - Labs CBC & Chem 7: 07/10/20 05:25 07/10/20 05:25 Labs: Abnormal lab results 07/09/20 07/09/20 07/10/20 Range/Units 17:49 23:36 05:17 MCH (28-32) pg Seg Neuts % (Manual) (40.0-70.0) % Lymphocytes % (Manual) (13.4-35.0) % Seg Neutrophils # Man (1.8-7.7) K/mm3 Lymphocytes # (Manual) (1.2-5.4) K/mm3 D-Dimer (0-234) ng/mlDDU Sodium (137-145) mmol/L Chloride (98-107) mmol/L BUN (7-17) mg/dL Glucose (65-100) mg/dL POC Glucose 196 H 154 H 178 H (70-105) mg/dL Ferritin (10.0-200.0) ng/mL C-Reactive Protein (0.00-1.30) mg/dL Albumin (3.9-5) g/dL 07/10/20 07/10/20 07/10/20 Range/Units 05:25 05:25 05:25 MCH (28-32) pg Seg Neuts % (Manual) (40.0-70.0) % Lymphocytes % (Manual) (13.4-35.0) % Seg Neutrophils # Man (1.8-7.7) K/mm3 Lymphocytes # (Manual) (1.2-5.4) K/mm3 D-Dimer 1786.87 H (0-234) ng/mlDDU Sodium 152 H (137-145) mmol/L Chloride 112.8 H (98-107) mmol/L BUN 60 H (7-17) mg/dL Glucose 204 H (65-100) mg/dL POC Glucose (70-105) mg/dL Ferritin 920.8 H (10.0-200.0) ng/mL C-Reactive Protein 2.80 H (0.00-1.30) mg/dL Albumin 3.3 L (3.9-5) g/dL 07/10/20 07/10/20 Range/Units 05:25 12:39 MCH 27 L (28-32) pg Seg Neuts % (Manual) 92.0 H (40.0-70.0) % Lymphocytes % (Manual) 3.0 L (13.4-35.0) % Seg Neutrophils # Man 9.5 H (1.8-7.7) K/mm3 Lymphocytes # (Manual) 0.3 L (1.2-5.4) K/mm3 D-Dimer (0-234) ng/mlDDU Sodium (137-145) mmol/L Chloride (98-107) mmol/L BUN (7-17) mg/dL Glucose (65-100) mg/dL POC Glucose 174 H (70-105) mg/dL Ferritin (10.0-200.0) ng/mL C-Reactive Protein (0.00-1.30) mg/dL Albumin (3.9-5) g/dL
[2020-07-10] MEDS: REMDESIVIR 100 MG in SODIUM CHLORIDE 0.9% 250ML 250 ML IV SCH (21:28)
[2020-07-11] MEDS: HEPARIN 5,000 UNIT/1 ML VIAL SUB-Q SCH ×4 (00:15→22:32)
[2020-07-11] MEDS: methylPREDNISolone Sod Succinate 125 MG/2 ML INJ IV SCH ×4 (00:51→17:49)
[2020-07-11] MEDS: LORazepam 2 MG/ML VIAL IV PRN ×3 (02:31→16:41)
[2020-07-11] MEDS: HALOPERIDOL LACTATE 5 MG/1 ML INJ IV PRN ×3 (02:32→16:41)
[2020-07-11] MEDS: hydrALAZINE 10 MG TAB PO SCH ×3 (05:09→22:33)
[2020-07-11] MEDS: INSULIN LISPRO 100 UNIT/ML SUB-Q SCH ×3 (05:31→17:49)
[2020-07-11 07:59] LABS: Calcium 8.9 mg/dL (8.4-10.2)
[2020-07-11] MEDS: INSULIN NPH/REGULAR 70/30 INJ SUB-Q SCH ×2 (08:44→16:16)
[2020-07-11] MEDS: DEXTROSE 5% IN WATER 1,000 ML IV SCH ×2 (08:44→19:26)
[2020-07-11] MEDS: SENNOSIDES 8.6 MG TAB PO SCH ×2 (09:22→22:34)
[2020-07-11] MEDS: DOCUSATE SODIUM 100 MG CAP PO SCH ×2 (09:22→22:33)
[2020-07-11] MEDS: ASCORBIC ACID 500 MG TAB PO SCH (09:23)
[2020-07-11] MEDS: ZINC SULFATE 220 MG CAP PO SCH (09:23)
[2020-07-11] MEDS: FAMOTIDINE 20 MG/2 ML INJ IV SCH (09:37)
[2020-07-11] MEDS: cefTRIAXone/NS 2 GM/100 ML 2 GM/100 ML BAG IV SCH (09:37)
--- NOTE | 2020-07-11 10:55 | Progress Note ---
Assessment and Plan 69 y/o female, covid positive admitted with acute respiratory failure. 07/11/20: Will attempt HFNC this afternoon. IF tolerates will allow patient to eat as well. Daughter wants to speak with her if possible. If she tolerates HFNC with eating then we will call her. Agree with D5W for insensible losses. Continue High dose steroids. Guarded prognosis. 07/10/20: Updated daughter this morning. Will hold on intubation as of right n ow. Will add scheduled haldol to see if this helps patient to relax and not fight the bipap mask. Really trying to avoid intubation given her COVID positive state and history of outcomes of ventilated patients. Will continue steroids at 60q6. Need to address nutrition soon. If intubated then will place NG/OG tube for supplementation. No further lasix as no improvement. Guarded prognosis. No current indication for ABG. Know that O2 will be marginal given requirements. Will cancel current order. 07/09/20: Continue steroids and Remdesivir. I increased steroids to 60q6 on yesterday. Continue NPO state and Continue bipap. Trying very had to not intubate but given lack of improvement and lack of nutrition, may have to electively do so in the next 12-24 hours. Will give a small dose of IV lasix today. Prognosis is very very guarded. Apparently is upstairs as well. 07/08/20: BNP was high normal, hold on lasix today. Continue steroids and remdesivir, may consider increasing steroids to BID. Continue bipap, NPO. Will give some ativan, very low dose PRN to see if this helps with work of breathing. Sinus ravindra is stable. Guarded prognosis. Doing everything to prevent extubation. 1. Will check bnP 2. Agree with steroids and remdesivir 3. Lasix 40mg IV x1 given today 4. Continue bipap for now, wean for sats >88% but wait a few hours until lasix is given. 5. PRone is possible 6. Guarded prognosis. If BNP elevated would need echo 7. Spoke with nursing about bradycardia, sinus on EKG, but if persistently low in 30's please repeat EKG Subjective Date of service: 07/11/20 Interval history: Down to 80% on bipap this morning. Sats in the high 90's. Started on D5W secondary to hypernatremia from insensible losses. Objective Vital Signs - 12hr 07/10/20 07/10/20 07/10/20 23:00 23:02 23:30 Temperature Pulse Rate 91 H 96 H 68 Pulse Rate [ From Monitor] Respiratory 22 22 17 Rate Blood Pressure 150/49 137/81 137/81 O2 Sat by Pulse 95 95 96 Oximetry 07/10/20 07/11/20 07/11/20 23:33 00:00 00:30 Temperature 98.4 F Pulse Rate 81 68 Pulse Rate [ 75 From Monitor] Respiratory 17 17 Rate Blood Pressure 136/76 136/76 O2 Sat by Pulse 96 98 Oximetry 07/11/20 07/11/20 07/11/20 00:45 01:00 01:30 Temperature Pulse Rate 85 79 66 Pulse Rate [ From Monitor] Respiratory 31 H 16 19 Rate Blood Pressure 136/76 126/62 136/76 O2 Sat by Pulse 96 98 Oximetry 07/11/20 07/11/20 07/11/20 02:00 02:30 03:00 Temperature Pulse Rate 75 83 63 Pulse Rate [ From Monitor] Respiratory 16 31 H 19 Rate Blood Pressure 131/70 131/70 112/50 O2 Sat by Pulse 99 95 96 Oximetry 07/11/20 07/11/20 07/11/20 03:14 03:30 04:00 Temperature 98.8 F Pulse Rate 61 69 Pulse Rate [ 64 From Monitor] Respiratory 20 16 Rate Blood Pressure 112/50 119/56 O2 Sat by Pulse 97 95 Oximetry 07/11/20 07/11/20 07/11/20 04:30 04:45 05:00 Temperature Pulse Rate 64 85 64 Pulse Rate [ From Monitor] Respiratory 20 31 H 18 Rate Blood Pressure 119/56 136/76 102/45 O2 Sat by Pulse 96 96 97 Oximetry 07/11/20 07/11/20 07/11/20 05:09 05:30 06:00 Temperature Pulse Rate 64 88 61 Pulse Rate [ From Monitor] Respiratory 39 H 17 Rate Blood Pressure 102/45 102/45 115/49 O2 Sat by Pulse 96 99 Oximetry 07/11/20 07/11/20 07/11/20 06:30 07:00 07:30 Temperature Pulse Rate 63 86 Pulse Rate [ From Monitor] Respiratory 19 16 Rate Blood Pressure 115/49 117/74 115/49 O2 Sat by Pulse 98 99 93 Oximetry 07/11/20 07/11/20 07/11/20 08:00 08:30 09:00 Temperature 98.1 F Pulse Rate 65 89 68 Pulse Rate [ 82 From Monitor] Respiratory 20 16 Rate Blood Pressure 118/50 128/80 118/50 O2 Sat by Pulse 97 92 98 Oximetry 07/11/20 07/11/20 09:30 10:00 Temperature Pulse Rate 68 94 H Pulse Rate [ From Monitor] Respiratory 19 26 H Rate Blood Pressure 118/50 138/76 O2 Sat by Pulse 98 91 Oximetry Constitutional: no acute distress, alert, other (full face mask on for bipap therapy.) Eyes: non-icteric Neck: supple Ascultation: Bilateral: diminished breath sounds CBC and BMP: 07/10/20 05:25 07/11/20 06:08 ABG, PT/INR, D-dimer: ABG ABG pH 7.487 (7.320-7.450) H 07/08/20 02:39 POC ABG pCO2 32.8 mmHg (32.0-48.0) 07/08/20 02:39 POC ABG pO2 52.5 mmHg (83-108) L 07/08/20 02:39 POC ABG HCO3 24.3 07/08/20 02:39 PT/INR, D-dimer PT 14.7 Sec. (12.2-14.9) 07/06/20 08:50 INR 1.15 (0.87-1.13) H 07/06/20 08:50 D-Dimer 1786.87 ng/mlDDU (0-234) H 07/10/20 05:25 Abnormal lab findings: Abnormal Labs 07/06/20 07/06/20 07/06/20 08:50 08:50 08:50 MCV 78 L MCH 26 L Lymph % (Auto) Lymph # (Auto) Seg Neutrophils % Seg Neuts % (Manual) 80.0 H Lymphocytes % (Manual) 10.0 L Nucleated RBC % 4.0 H Seg Neutrophils # Seg Neutrophils # Man Lymphocytes # (Manual) 0.9 L INR 1.15 H D-Dimer 1435.13 H ABG pH POC ABG pCO2 POC ABG pO2 ABG Hemoglobin ABG Oxyhemoglobin ABG Glucose Carboxyhemoglobin Sodium 136 L Chloride BUN 45 H Creatinine 1.6 H Glucose 385 H POC Glucose Hemoglobin A1c Lactic Acid Ferritin Alkaline Phosphatase 130 H Lactate Dehydrogenase Troponin T 0.034 H C-Reactive Protein Albumin 3.2 L Arterial Blood Glucose Coronavirus (PCR) 07/06/20 07/06/20 07/06/20 08:50 08:50 08:50 MCV MCH Lymph % (Auto) Lymph # (Auto) Seg Neutrophils % Seg Neuts % (Manual) Lymphocytes % (Manual) Nucleated RBC % Seg Neutrophils # Seg Neutrophils # Man Lymphocytes # (Manual) INR D-Dimer ABG pH POC ABG pCO2 POC ABG pO2 ABG Hemoglobin ABG Oxyhemoglobin ABG Glucose Carboxyhemoglobin Sodium Chloride BUN Creatinine Glucose 385 H POC Glucose Hemoglobin A1c Lactic Acid 2.30 H* Ferritin 1158.0 H Alkaline Phosphatase Lactate Dehydrogenase 471 H Troponin T C-Reactive Protein 10.40 H Albumin Arterial Blood Glucose Coronavirus (PCR) 07/06/20 07/06/20 07/06/20 09:26 15:44 15:44 MCV MCH Lymph % (Auto) Lymph # (Auto) Seg Neutrophils % Seg Neuts % (Manual) Lymphocytes % (Manual) Nucleated RBC % Seg Neutrophils # Seg Neutrophils # Man Lymphocytes # (Manual) INR D-Dimer ABG pH POC ABG pCO2 POC ABG pO2 ABG Hemoglobin ABG Oxyhemoglobin ABG Glucose Carboxyhemoglobin Sodium Chloride BUN Creatinine Glucose POC Glucose Hemoglobin A1c 11.8 H Lactic Acid 2.40 H* Ferritin Alkaline Phosphatase Lactate Dehydrogenase Troponin T C-Reactive Protein Albumin Arterial Blood Glucose Coronavirus (PCR) Positive A 07/06/20 07/06/20 07/06/20 15:44 17:40 20:35 MCV MCH Lymph % (Auto) Lymph # (Auto) Seg Neutrophils % Seg Neuts % (Manual) Lymphocytes % (Manual) Nucleated RBC % Seg Neutrophils # Seg Neutrophils # Man Lymphocytes # (Manual) INR D-Dimer ABG pH 7.455 H POC ABG pCO2 30.9 L POC ABG pO2 50.0 L ABG Hemoglobin 11.1 L ABG Oxyhemoglobin 80.6 L ABG Glucose 357 H Carboxyhemoglobin 0.3 L Sodium Chloride BUN Creatinine Glucose POC Glucose 324 H Hemoglobin A1c Lactic Acid Ferritin Alkaline Phosphatase Lactate Dehydrogenase 683 H Troponin T C-Reactive Protein Albumin Arterial Blood Glucose 357 H Coronavirus (PCR) 07/06/20 07/06/20 07/07/20 21:49 23:52 02:19 MCV MCH Lymph % (Auto) Lymph # (Auto) Seg Neutrophils % Seg Neuts % (Manual) Lymphocytes % (Manual) Nucleated RBC % Seg Neutrophils # Seg Neutrophils # Man Lymphocytes # (Manual) INR D-Dimer ABG pH 7.455 H POC ABG pCO2 31.9 L POC ABG pO2 50.7 L 62.0 L ABG Hemoglobin 10.8 L 10.8 L ABG Oxyhemoglobin 80.2 L 88.3 L ABG Glucose 358 H 330 H Carboxyhemoglobin 0.2 L 0.2 L Sodium Chloride BUN Creatinine Glucose POC Glucose 336 H Hemoglobin A1c Lactic Acid Ferritin Alkaline Phosphatase Lactate Dehydrogenase Troponin T C-Reactive Protein Albumin Arterial Blood Glucose 358 H 330 H Coronavirus (PCR) 07/07/20 07/07/20 07/07/20 02:42 02:42 07:54 MCV MCH 26 L Lymph % (Auto) Lymph # (Auto) Seg Neutrophils % Seg Neuts % (Manual) 85.0 H Lymphocytes % (Manual) 6.0 L Nucleated RBC % Seg Neutrophils # Seg Neutrophils # Man 7.9 H Lymphocytes # (Manual) 0.6 L INR D-Dimer ABG pH POC ABG pCO2 POC ABG pO2 ABG Hemoglobin ABG Oxyhemoglobin ABG Glucose Carboxyhemoglobin Sodium Chloride BUN 47 H Creatinine 1.3 H Glucose 336 H POC Glucose 289 H Hemoglobin A1c Lactic Acid Ferritin Alkaline Phosphatase Lactate Dehydrogenase Troponin T C-Reactive Protein Albumin Arterial Blood Glucose Coronavirus (PCR) 07/07/20 07/07/20 07/07/20 11:07 15:40 23:27 MCV MCH Lymph % (Auto) Lymph # (Auto) Seg Neutrophils % Seg Neuts % (Manual) Lymphocytes % (Manual) Nucleated RBC % Seg Neutrophils # Seg Neutrophils # Man Lymphocytes # (Manual) INR D-Dimer ABG pH POC ABG pCO2 POC ABG pO2 ABG Hemoglobin ABG Oxyhemoglobin ABG Glucose Carboxyhemoglobin Sodium Chloride BUN Creatinine Glucose POC Glucose 322 H 346 H 274 H Hemoglobin A1c Lactic Acid Ferritin Alkaline Phosphatase Lactate Dehydrogenase Troponin T C-Reactive Protein Albumin Arterial Blood Glucose Coronavirus (PCR) 07/08/20 07/08/20 07/08/20 02:39 05:07 05:07 MCV MCH Lymph % (Auto) Lymph # (Auto) Seg Neutrophils % Seg Neuts % (Manual) Lymphocytes % (Manual) Nucleated RBC % Seg Neutrophils # Seg Neutrophils # Man Lymphocytes # (Manual) INR D-Dimer 2542.57 H ABG pH 7.487 H POC ABG pCO2 POC ABG pO2 52.5 L ABG Hemoglobin 11.8 L ABG Oxyhemoglobin ABG Glucose 336 H Carboxyhemoglobin Sodium Chloride BUN 51 H Creatinine Glucose 326 H POC Glucose Hemoglobin A1c Lactic Acid Ferritin Alkaline Phosphatase Lactate Dehydrogenase Troponin T C-Reactive Protein 4.30 H Albumin 3.2 L Arterial Blood Glucose 336 H Coronavirus (PCR) 07/08/20 07/08/20 07/08/20 05:07 05:07 05:21 MCV MCH 25 L Lymph % (Auto) 7.9 L Lymph # (Auto) 0.6 L Seg Neutrophils % 85.6 H Seg Neuts % (Manual) Lymphocytes % (Manual) Nucleated RBC % Seg Neutrophils # Seg Neutrophils # Man Lymphocytes # (Manual) INR D-Dimer ABG pH POC ABG pCO2 POC ABG pO2 ABG Hemoglobin ABG Oxyhemoglobin ABG Glucose Carboxyhemoglobin Sodium Chloride BUN Creatinine Glucose POC Glucose 293 H Hemoglobin A1c Lactic Acid Ferritin 975.6 H Alkaline Phosphatase Lactate Dehydrogenase Troponin T C-Reactive Protein Albumin Arterial Blood Glucose Coronavirus (PCR) 07/08/20 07/08/20 07/08/20 08:59 11:39 17:57 MCV MCH Lymph % (Auto) Lymph # (Auto) Seg Neutrophils % Seg Neuts % (Manual) Lymphocytes % (Manual) Nucleated RBC % Seg Neutrophils # Seg Neutrophils # Man Lymphocytes # (Manual) INR D-Dimer ABG pH POC ABG pCO2 POC ABG pO2 ABG Hemoglobin ABG Oxyhemoglobin ABG Glucose Carboxyhemoglobin Sodium Chloride BUN Creatinine Glucose POC Glucose 270 H 285 H 221 H Hemoglobin A1c Lactic Acid Ferritin Alkaline Phosphatase Lactate Dehydrogenase Troponin T C-Reactive Protein Albumin Arterial Blood Glucose Coronavirus (PCR) 07/08/20 07/08/20 07/09/20 21:26 23:29 05:29 MCV MCH Lymph % (Auto) Lymph # (Auto) Seg Neutrophils % Seg Neuts % (Manual) Lymphocytes % (Manual) Nucleated RBC % Seg Neutrophils # Seg Neutrophils # Man Lymphocytes # (Manual) INR D-Dimer ABG pH POC ABG pCO2 POC ABG pO2 ABG Hemoglobin ABG Oxyhemoglobin ABG Glucose Carboxyhemoglobin Sodium Chloride BUN Creatinine Glucose POC Glucose 232 H 231 H 196 H Hemoglobin A1c Lactic Acid Ferritin Alkaline Phosphatase Lactate Dehydrogenase Troponin T C-Reactive Protein Albumin Arterial Blood Glucose Coronavirus (PCR) 07/09/20 07/09/20 07/09/20 06:51 06:51 12:10 MCV MCH 26 L Lymph % (Auto) 4.3 L Lymph # (Auto) 0.4 L Seg Neutrophils % Seg Neuts % (Manual) Lymphocytes % (Manual) 1.0 L Nucleated RBC % Seg Neutrophils # 9.1 H Seg Neutrophils # Man 9.8 H Lymphocytes # (Manual) 0.1 L INR D-Dimer ABG pH POC ABG pCO2 POC ABG pO2 ABG Hemoglobin ABG Oxyhemoglobin ABG Glucose Carboxyhemoglobin Sodium 147 H Chloride 111.9 H BUN 52 H Creatinine Glucose 207 H POC Glucose 176 H Hemoglobin A1c Lactic Acid Ferritin Alkaline Phosphatase Lactate Dehydrogenase Troponin T C-Reactive Protein Albumin 3.2 L Arterial Blood Glucose Coronavirus (PCR) 07/09/20 07/09/20 07/10/20 17:49 23:36 05:17 MCV MCH Lymph % (Auto) Lymph # (Auto) Seg Neutrophils % Seg Neuts % (Manual) Lymphocytes % (Manual) Nucleated RBC % Seg Neutrophils # Seg Neutrophils # Man Lymphocytes # (Manual) INR D-Dimer ABG pH POC ABG pCO2 POC ABG pO2 ABG Hemoglobin ABG Oxyhemoglobin ABG Glucose Carboxyhemoglobin Sodium Chloride BUN Creatinine Glucose POC Glucose 196 H 154 H 178 H Hemoglobin A1c Lactic Acid Ferritin Alkaline Phosphatase Lactate Dehydrogenase Troponin T C-Reactive Protein Albumin Arterial Blood Glucose Coronavirus (PCR) 07/10/20 07/10/20 07/10/20 05:25 05:25 05:25 MCV MCH Lymph % (Auto) Lymph # (Auto) Seg Neutrophils % Seg Neuts % (Manual) Lymphocytes % (Manual) Nucleated RBC % Seg Neutrophils # Seg Neutrophils # Man Lymphocytes # (Manual) INR D-Dimer 1786.87 H ABG pH POC ABG pCO2 POC ABG pO2 ABG Hemoglobin ABG Oxyhemoglobin ABG Glucose Carboxyhemoglobin Sodium 152 H Chloride 112.8 H BUN 60 H Creatinine Glucose 204 H POC Glucose Hemoglobin A1c Lactic Acid Ferritin 920.8 H Alkaline Phosphatase Lactate Dehydrogenase Troponin T C-Reactive Protein 2.80 H Albumin 3.3 L Arterial Blood Glucose Coronavirus (PCR) 07/10/20 07/10/20 07/10/20 05:25 12:39 17:56 MCV MCH 27 L Lymph % (Auto) Lymph # (Auto) Seg Neutrophils % Seg Neuts % (Manual) 92.0 H Lymphocytes % (Manual) 3.0 L Nucleated RBC % Seg Neutrophils # Seg Neutrophils # Man 9.5 H Lymphocytes # (Manual) 0.3 L INR D-Dimer ABG pH POC ABG pCO2 POC ABG pO2 ABG Hemoglobin ABG Oxyhemoglobin ABG Glucose Carboxyhemoglobin Sodium Chloride BUN Creatinine Glucose POC Glucose 174 H 177 H Hemoglobin A1c Lactic Acid Ferritin Alkaline Phosphatase Lactate Dehydrogenase Troponin T C-Reactive Protein Albumin Arterial Blood Glucose Coronavirus (PCR) 07/10/20 07/11/20 07/11/20 23:13 05:20 06:08 MCV MCH Lymph % (Auto) Lymph # (Auto) Seg Neutrophils % Seg Neuts % (Manual) Lymphocytes % (Manual) Nucleated RBC % Seg Neutrophils # Seg Neutrophils # Man Lymphocytes # (Manual) INR D-Dimer ABG pH POC ABG pCO2 POC ABG pO2 ABG Hemoglobin ABG Oxyhemoglobin ABG Glucose Carboxyhemoglobin Sodium 159 H Chloride 120.9 H BUN 57 H Creatinine Glucose 162 H POC Glucose 107 H 129 H Hemoglobin A1c Lactic Acid Ferritin Alkaline Phosphatase Lactate Dehydrogenase Troponin T C-Reactive Protein Albumin 3.0 L Arterial Blood Glucose Coronavirus (PCR)
--- NOTE | 2020-07-11 12:26 | Progress Note ---
Assessment and Plan Assessment and plan: Sepsis -Presented with hypoxia, tachypnea and acute hypoxic respiratory failure, acute kidney injury, pneumonia on CXR and COVID-19 infection -07/06 blood cultures x2 pending -Antibiotic therapy -Infectious disease consulted, appreciate recommendations COVID-19 infection -07/06 CXR shows diffuse hazy bilateral lung opacities concerning for viral infection, atypical pneumonia or pulmonary edema with no pleural effusions or pneumothorax -07/06 COVID-19 PCR positive -07/05 COVID-19 PCR at outside facility positive -Infectious disease and pulmonology consulted, appreciate recommendations -Contact/droplet isolation -Pulmonary hygiene -Supplemental oxygen as needed -Antibiotic therapy -07/07 remdesivir therapy started -Steroid therapy, increased by CCM -OOB 3 times daily -Prone to sleep as needed -Anticoagulation per protocol -Vitamin C, vitamin D and zinc -SPO2 monitoring Bilateral pneumonia -07/06 CXR shows diffuse hazy bilateral lung opacities concerning for viral infection, atypical pneumonia or pulmonary edema with no pleural effusions or pneumothorax -Secondary to COVID-19 infection -Antibiotic therapy -Infectious disease consulted, appreciate recommendation -07/06 blood cultures x2 no growth to date Elevated D-dimer -Admit D-dimer 1435 -07/06 nuclear medicine perfusion study shows low probability of pulmonary embolism -07/06 bilateral lower extremity Doppler ultrasound negative for DVT/SVT Acute hypoxic respiratory failure -Room air SPO2 75% and placed on high flow nasal cannula -Pulmonary consulted, patient recommendations -Steroid therapy -Supplemental oxygen as needed -Pulmonary hygiene -SPO2 monitoring -07/07 AB.4/32 point 5/62/20 2.3 with a base excess of -1 on 100% FiO2 via Bi PAP -07/07 CXR: Persistent diffuse pulmonary process, pulmonary edema is a concern -07/07 lasix 40mg x1, 07/09 lasix x1 -07/07 proBNP 459 Elevated troponin/SB -Presented with a troponin of 0.034 -07/06 troponin less than 0.10 -Cardiology consulted, appreciate recommendations -EKG as needed -No complaints of chest pain -Cardiology believes elevated troponin is in setting of acute kidney injury Acute kidney injury -12/2016 creatinine/BUN 0.9/15 -Presented with a creatinine/BUN 1.6/45 -07/07 BUN/Cr 47/1.3, 07/08 BUN/Cr 51/1.2 -Trend BMP -Consider nephrology consult if not improving Lactic acidosis -Presented with a lactic acid of 2.3 -Trend lactic acid -07/07 LA 1.6 Hypernatremia -07/09 sodium 147 -Started on D5W. Trend Na and avoid rapid correction Hyperchloremia -07/09 chloride 111 -Trend BMP Hypertension -Restart home antihypertensive regimen once obtained -Hydralazine as needed for SBP greater than 160 -Blood pressure monitoring per protocol Diabetes mellitus -07/06 hemoglobin A1c 11.8 -SSI -CC cardiac diet -Accu-Cheks AC at bedtime -Hypoglycemia protocol -07/06 70/30 initiated, titrate as needed DVT prophylaxis -Heparin subcu -GI prophylaxis -SCDs to bilateral lower extremities while in bed History Interval history: This is a 69-year-old Laotian female with limited Russian with hypertension, diabetes mellitus, hyperlipidemia who presented to the hospital on 07/06 via EMS with worsening subjective fevers, headache, body ache, dry cough, dyspnea on exertion, fatigue, headache and nausea since the last week end of May. Patient had a positive COVID-19 PCR on 07/05 as outside facility. Upon arrival to the emergency department patient was hypoxic on room air at 75% and tachypneic. Work-up in the emergency department with a CXR which showed bilateral pneumonia, lactic acidosis at 2.3, acute kidney injury at 1.6/45, elevated D-dimer, jacob vated troponin and slight hyponatremia 136. Patient received Rocephin, azithromycin and Decadron in the emergency department. Patient was admitted to the hospitalist service as a COVID-19 PUI, acute kidney injury, sepsis, lactic acidosis, and elevated D-dimer with consults to pulmonology and infectious disease. 07/06: COVID-19 PCR positive, azithromycin and Rocephin, Decadron and remdesivir therapy 07/07: Patient is on 100% FiO2 BiPAP therapy with SPO2 in the low 90s and high 80s, hypoxia and ABG, sinus bradycardia noted overnight. Repeat CXR shows persistent diffuse pulmonary process and pulmonary edema therefore she received 40 mg of Lasix x1 and a proBNP is pending per CCM 07/08: Patient remains on antibiotic therapy, kidney function tests have not worsened, sinus bradycardia still persist and steroid dosing was increased today by [facility]. Patient's daughter was updated today 07/09: Overnight it was noted that the patient developed bilateral small pneumothorax on AM CXR. She still remains on 100% FiO2 via Bipap and her ABG shows hypoxia. Her steroid therapy was changed per [facility] and she received lasix x1 today. 07/10. Still remains hypoxic on BiPAP. Labs reviewed-sodium 152 today. Hold off on IV fluids for today due to ongoing respiratory difficulty. Trend sodium for now and if elevated tomorrow we will start on hypotonic solution. Possible extubation in the next 24 hours if no improvement in respiratory status. Critical care on board 07/11. Her oxygen sats remains stable. Plan to switch to HFNC to see if she tolerated. Started on D5W due to worsening hyponatremia and lethargy. BMO q6 hr ordered Hospitalist Physical - Constitutional Vitals: Temp Pulse Resp BP Pulse Ox 98.1 F 66 18 138/76 99 07/11/20 08:00 07/11/20 11:00 07/11/20 11:00 07/11/20 11:00 07/11/20 11:00 General appearance: Present: mild distress, obese HEART Score - HEART Score Troponin: Troponin T < 0.010 ng/mL (0.00-0.029) 07/07/20 00:22 Results - Labs CBC & Chem 7: 07/10/20 05:25 07/11/20 06:08 Labs: Laboratory Last Values WBC 10.3 K/mm3 (4.5-11.0) 07/10/20 05:25 RBC 4.43 M/mm3 (3.65-5.03) 07/10/20 05:25 Hgb 11.7 gm/dl (10.1-14.3) 07/10/20 05:25 Hct 35.4 % (30.3-42.9) 07/10/20 05:25 MCV 80 fl (79-97) 07/10/20 05:25 MCH 27 pg (28-32) L 07/10/20 05:25 MCHC 33 % (30-34) 07/10/20 05:25 RDW 14.0 % (13.2-15.2) 07/10/20 05:25 Plt Count 231 K/mm3 (140-440) 07/10/20 05:25 Lymph % (Auto) 4.3 % (13.4-35.0) L 07/09/20 06:51 [place] % (Auto) 3.6 % (0.0-7.3) 07/09/20 06:51 Eos % (Auto) 0.6 % (0.0-4.3) 07/09/20 06:51 Baso % (Auto) 0.3 % (0.0-1.8) 07/09/20 06:51 Lymph # (Auto) 0.4 K/mm3 (1.2-5.4) L 07/09/20 06:51 [place] # (Auto) 0.4 K/mm3 (0.0-0.8) 07/09/20 06:51 Eos # (Auto) 0.1 K/mm3 (0.0-0.4) 07/09/20 06:51 Baso # (Auto) 0.0 K/mm3 (0.0-0.1) 07/09/20 06:51 Add Manual Diff Complete 07/10/20 05:25 Total Counted 100 07/10/20 05:25 Seg Neutrophils % Implementation Engineer 07/10/20 05:25 Seg Neuts % (Manual) 92.0 % (40.0-70.0) H 07/10/20 05:25 Band Neutrophils % 4.0 % 07/07/20 02:42 Lymphocytes % (Manual) 3.0 % (13.4-35.0) L 07/10/20 05:25 Monocytes % (Manual) 4.0 % (0.0-7.3) 07/10/20 05:25 Metamyelocytes % 1.0 % 07/10/20 05:25 Nucleated RBC % Not Reportable 07/10/20 05:25 Seg Neutrophils # 9.1 K/mm3 (1.8-7.7) H 07/09/20 06:51 Seg Neutrophils # Man 9.5 K/mm3 (1.8-7.7) H 07/10/20 05:25 Band Neutrophils # 0.0 K/mm3 07/10/20 05:25 Lymphocytes # (Manual) 0.3 K/mm3 (1.2-5.4) L 07/10/20 05:25 Abs React Lymphs (Man) 0.0 K/mm3 07/10/20 05:25 Monocytes # (Manual) 0.4 K/mm3 (0.0-0.8) 07/10/20 05:25 Eosinophils # (Manual) 0.0 K/mm3 (0.0-0.4) 07/10/20 05:25 Basophils # (Manual) 0.0 K/mm3 (0.0-0.1) 07/10/20 05:25 Metamyelocytes # 0.1 K/mm3 07/10/20 05:25 Myelocytes # 0.0 K/mm3 07/10/20 05:25 Promyelocytes # 0.0 K/mm3 07/10/20 05:25 Blast Cells # 0.0 K/mm3 07/10/20 05:25 WBC Morphology Not Reportable 07/10/20 05:25 Hypersegmented Neuts Few 07/10/20 05:25 Hyposegmented Neuts Not Reportable 07/10/20 05:25 Hypogranular Neuts Not Reportable 07/10/20 05:25 Smudge Cells Not Reportable 07/10/20 05:25 Toxic Granulation Not Reportable 07/10/20 05:25 Toxic Vacuolation Not Reportable 07/10/20 05:25 Dohle Bodies Not Reportable 07/10/20 05:25 Pelger-Huet Anomaly Not Reportable 07/10/20 05:25 Rudy Rods Not Reportable 07/10/20 05:25 Platelet Estimate Consistent w auto 07/10/20 05:25 Clumped Platelets Not Reportable 07/10/20 05:25 Plt Clumps, EDTA Not Reportable 07/10/20 05:25 Large Platelets Not Reportable 07/10/20 05:25 Giant Platelets Not Reportable 07/10/20 05:25 Platelet Satelliting Not Reportable 07/10/20 05:25 Plt Morphology Comment Not Reportable 07/10/20 05:25 RBC Morphology Not Reportable 07/10/20 05:25 Dimorphic RBCs Not Reportable 07/10/20 05:25 Polychromasia Not Reportable 07/10/20 05:25 Hypochromasia Not Reportable 07/10/20 05:25 Poikilocytosis Not Reportable 07/10/20 05:25 Anisocytosis Few 07/10/20 05:25 Microcytosis Few 07/10/20 05:25 Macrocytosis Few 07/10/20 05:25 Spherocytes Not Reportable 07/10/20 05:25 Pappenheimer Bodies Not Reportable 07/10/20 05:25 Sickle Cells Not Reportable 07/10/20 05:25 Target Cells Not Reportable 07/10/20 05:25 Tear Drop Cells Rare 07/10/20 05:25 Ovalocytes Few 07/10/20 05:25 Helmet Cells Not Reportable 07/10/20 05:25 [place] Bodies Not Reportable 07/10/20 05:25 [place] Rings Not Reportable 07/10/20 05:25 Eliane Cells Not Reportable 07/10/20 05:25 Bite Cells Not Reportable 07/10/20 05:25 Crenated Cell Not Reportable 07/10/20 05:25 Elliptocytes Not Reportable 07/10/20 05:25 Acanthocytes (Spur) Not Reportable 07/10/20 05:25 Rouleaux Not Reportable 07/10/20 05:25 Hemoglobin C Crystals Not Reportable 07/10/20 05:25 Schistocytes Not Reportable 07/10/20 05:25 Malaria parasites Not Reportable 07/10/20 05:25 Shreyas Bodies Not Reportable 07/10/20 05:25 Hem Pathologist Commnt No 07/10/20 05:25 PT 14.7 Sec. (12.2-14.9) 07/06/20 08:50 INR 1.15 (0.87-1.13) H 07/06/20 08:50 APTT 25.9 Sec. (24.2-36.6) 07/06/20 08:50 D-Dimer 1786.87 ng/mlDDU (0-234) H 07/10/20 05:25 ABG pH 7.487 (7.320-7.450) H 07/08/20 02:39 POC ABG pCO2 32.8 mmHg (32.0-48.0) 07/08/20 02:39 POC ABG pO2 52.5 mmHg (83-108) L 07/08/20 02:39 POC ABG HCO3 24.3 07/08/20 02:39 POC ABG Base Excess 1.3 07/08/20 02:39 ABG Hemoglobin 11.8 (12.0-17.5) L 07/08/20 02:39 ABG Oxyhemoglobin 88.3 (94-98) L 07/07/20 02:19 ABG Methemoglobin 0.3 (0.0-1.5) 07/07/20 02:19 ABG Sodium 137.3 mmol/L (136.0-145.0) 07/08/20 02:39 ABG Potassium 4.3 mmol/L (3.40-4.50) 07/08/20 02:39 ABG Chloride 105.0 mmol/L (98-107) 07/08/20 02:39 ABG Glucose 336 mg/dL (65-95) H 07/08/20 02:39 Carboxyhemoglobin 0.2 (0.5-1.5) L 07/07/20 02:19 FiO2 100 07/08/20 02:39 Sodium 159 mmol/L (137-145) H 07/11/20 06:08 Potassium 4.4 mmol/L (3.6-5.0) 07/11/20 06:08 Chloride 120.9 mmol/L (98-107) H 07/11/20 06:08 Carbon Dioxide 27 mmol/L (22-30) 07/11/20 06:08 Anion Gap 16 mmol/L 07/11/20 06:08 BUN 57 mg/dL (7-17) H 07/11/20 06:08 Creatinine 1.1 mg/dL (0.6-1.2) 07/11/20 06:08 Estimated GFR 49 ml/min 07/11/20 06:08 BUN/Creatinine Ratio 52 % 07/11/20 06:08 Glucose 162 mg/dL (65-100) H 07/11/20 06:08 POC Glucose 238 mg/dL (70-105) H 07/11/20 12:08 Hemoglobin A1c 11.8 % (4-6) H 07/06/20 15:44 Lactic Acid 1.60 mmol/L (0.7-2.0) 07/07/20 08:55 Calcium 8.9 mg/dL (8.4-10.2) 07/11/20 06:08 Ferritin 920.8 ng/mL (10.0-200.0) H 07/10/20 05:25 Total Bilirubin 1.00 mg/dL (0.1-1.2) 07/11/20 06:08 AST 38 units/L (5-40) 07/11/20 06:08 ALT 24 units/L (7-56) 07/11/20 06:08 Alkaline Phosphatase 107 units/L (35-129) 07/11/20 06:08 Lactate Dehydrogenase 683 units/L (91-180) H 07/06/20 15:44 Total Creatine Kinase 47 units/L (30-135) 07/07/20 00:22 CK-MB (CK-2) 1.6 ng/mL (0.0-4.0) 07/07/20 00:22 CK-MB (CK-2) Rel Index 3.4 (0-4) 07/07/20 00:22 Troponin T < 0.010 ng/mL (0.00-0.029) 07/07/20 00:22 C-Reactive Protein 2.80 mg/dL (0.00-1.30) H 07/10/20 05:25 NT-Pro-B Natriuret Pep 459.9 pg/mL (0-900) 07/07/20 14:31 Total Protein 6.8 g/dL (6.3-8.2) 07/11/20 06:08 Albumin 3.0 g/dL (3.9-5) L 07/11/20 06:08 Albumin/Globulin Ratio 0.8 % 07/11/20 06:08 Procalcitonin 7.48 ng/mL (<0.15) 07/06/20 15:44 TSH 0.420 mlU/mL (0.270-4.200) 07/08/20 05:07 Arterial Blood Glucose 336 mg/dL (65-95) H 07/08/20 02:39 Arterial Blood Ionized Calcium 4.6 mg/dL (4.6-5.3) 07/08/20 02:39 Urine Color Yellow (Yellow) 07/07/20 03:35 Urine Turbidity Clear (Clear) 07/07/20 03:35 Urine pH 5.0 (5.0-7.0) 07/07/20 03:35 Ur Specific [place] 1.026 (1.003-1.030) 07/07/20 03:35 Urine Protein 30 mg/dl mg/dL (Negative) 07/07/20 03:35 Urine Glucose (UA) >=500 mg/dL (Negative) 07/07/20 03:35 Urine Ketones Neg mg/dL (Negative) 07/07/20 03:35 Urine Blood Neg (Negative) 07/07/20 03:35 Urine Nitrite Neg (Negative) 07/07/20 03:35 Urine Bilirubin Neg (Negative) 07/07/20 03:35 Urine Urobilinogen 2.0 mg/dL (<2.0) 07/07/20 03:35 Ur Leukocyte Esterase Neg (Negative) 07/07/20 03:35 Urine WBC (Auto) < 1.0 /HPF (0.0-6.0) 07/07/20 03:35 Urine RBC (Auto) 0.0 /HPF (0.0-6.0) 07/07/20 03:35 U Epithel Cells (Auto) < 1.0 /HPF (0-13.0) 07/07/20 03:35 Urine Bacteria (Auto) 1+ /HPF (Negative) 07/07/20 03:35 Urine Osmolality 731 Mosm/kg 07/07/20 03:35 Urine Sodium 54 mmol/L 07/07/20 03:35 Coronavirus (PCR) Positive (Negative) A 07/06/20 09:26 Microbiology: Microbiology 07/06/20 08:50 Peripheral/Venous Blood Culture - Final NO GROWTH AFTER 5 DAYS 07/06/20 08:50 Peripheral/Venous Blood Culture - Final NO GROWTH AFTER 5 DAYS - Diagnostic Impressions Diagnostic Impressions: Echocardiogram 07/08/20 09:36 Transthoracic Echocardiogram Indication: Chest pain BP: 129/66 HR: 67 Conclusions *The study is technically limited due to poor acoustic windows. *Global left ventricular systolic function is normal. *The estimated ejection fraction is greater than 55-60%. *Mild concentric left ventricular hypertrophy is observed. *There is trace of mitral regurgitation. *The right heart chambers are not well visualized. Findings Procedure Info: The study quality is poor. The study is technically limited due to poor acoustic windows. Left Ventricle: The left ventricular chamber size is normal. Mild concentric left ventricular hypertrophy is observed. Global left ventricular systolic function is normal. The estimated ejection fraction is 55-60%. Left Atrium: The left atrial chamber size is normal. Right Ventricle: The right ventricle is not well visualized. Right Atrium: The right atrium is not well visualized. Aortic Valve: The aortic valve leaflets are mildly thickened. There is no evidence of aortic regurgitation. There is no evidence of aortic stenosis. Mitral Valve: The mitral valve leaflets are mildly thickened. There is trace of mitral regurgitation. There is no evidence of mitral stenosis. Tricuspid Valve: The tricuspid valve is not well visualized. Pulmonic Valve: The pulmonic valve is not well visualized. Pericardium: There is no pericardial effusion. Aorta: There is no dilatation of the aortic root. Venous: The inferior vena cava appears normal in size. Measurements Chambers 2D Name Value Normal Range IVSd (2D) 1.02 cm (0.6 - 1.1) LVPWd (2D) 1.02 cm (0.6 - 1.1) LVIDd (2D) 4.88 cm (3.7 - 5.6) LVIDs (2D) 3.22 cm (2 - 3.8) LV FS (2D) 33.94 % - EF Teichholz (2D) 62.68 % - Ao root diameter (2D) 2.8 cm (2 - 3.7) Diastolic/Systolic Function Name Value Normal Range MV E-wave Vmax 0.37 m/sec - MV deceleration time 185.21 msec - MV A-wave Vmax 0.35 m/sec - MV E:A ratio 1.07 ratio - Aortic Valve Name Value Normal Range AV Vmax 1.29 m/sec - AV VTI 24.04 cm - AV peak gradient 6.69 mmHg - AV mean gradient 3.19 mmHg - LVOT diameter 2.01 cm - LVOT Vmax 1.07 m/sec - LVOT VTI 21.78 cm - LVOT peak gradient 4.56 mmHg - LVOT mean gradient 2.37 mmHg - SV LVOT 69.26 ml - LEOBARDO (continuity Vmax) 2.63 cm2 - LEOBARDO (continuity VTI) 2.88 cm2 - Pulmonic Valve/Qp:Qs Name Value Normal Range PV acceleration time 95.15 msec - Beal/IV: Voiding Method External Female Catheter Active Medications - Current Medications Current Medications: Generic Name Dose Route Start Last Admin Trade Name Freq PRN Reason Stop Dose Admin Acetaminophen 650 mg 07/06/20 11:01 07/09/20 16:35 Acetaminophen 325 Mg Tab PO 650 mg Q4H PRN Administration Pain MILD(1-3)/Fever >100.5/OHARA Acetaminophen 650 mg 07/08/20 01:34 07/08/20 02:04 Acetaminophen 650 Mg Rect Supp [place] 650 mg Q4H PRN Administration PainMild (1-3),fever>100.5,OHARA Al Hydrox/Mg Hydrox/Simethicone 30 ml 07/06/20 11:01 Alum-Mag Hydroxide-Simethicone [phone]/5ml Oral Liqd 30 Ml PO Q4H PRN Indigestion Ascorbic Acid 500 mg 07/06/20 16:00 07/11/20 09:23 Ascorbic Acid 500 Mg Tab PO Not Given QDAY MITALI Dextrose 50 ml 07/06/20 11:01 Dextrose 50% In Water (25gm) 50 Ml Syringe IV Q30MIN PRN Hypoglycemia Protocol Docusate Sodium 100 mg 07/06/20 22:00 07/11/20 09:22 Docusate Sodium 100 Mg Cap PO Not Given BID MITALI Famotidine 20 mg 07/07/20 10:00 07/11/20 09:37 Famotidine 20 Mg/2 Ml Inj IV 20 mg DAILY MITALI Administration Haloperidol Lactate 5 mg 07/10/20 09:00 07/11/20 08:44 Haloperidol Lactate 5 Mg/1 Ml Inj IV 5 mg Q6H PRN Administration Agitation Heparin Sodium (Porcine) 7,500 unit 07/07/20 14:00 07/11/20 05:44 Heparin 5,000 Unit/1 Ml Vial SUB-Q 7,500 unit Q8HR MITALI Administration Hydralazine HCl 10 mg 07/07/20 07:28 Hydralazine 20 Mg/1 Ml Inj IV Q4HR PRN Hypertension Hydralazine HCl 10 mg 07/07/20 08:00 07/11/20 05:09 Hydralazine 10 Mg Tab PO Not Given Q8HR MITALI Dextrose 1,000 mls @ 125 mls/hr 07/11/20 09:00 07/11/20 08:44 D5w IV 125 mls/hr DIRECT MITALI Administration Insulin Human Isoph/Insulin Regular 12 unit 07/09/20 08:00 07/11/20 08:44 Insulin Nph/Regular 70/30 Inj SUB-Q 12 unit BIDDIAB MITALI Administration Insulin Human Lispro 0 unit 07/07/20 09:00 07/11/20 05:31 Insulin Lispro 100 Unit/Ml SUB-Q Not Given Q6HR [facility] Protocol Lorazepam 0.5 mg 07/08/20 11:00 07/11/20 08:44 Lorazepam 2 Mg/Ml Vial IV 0.5 mg Q4H PRN Administration Anxiety Methylprednisolone Sodium Succinate 60 mg 07/08/20 13:00 07/11/20 05:36 Methylprednisolone Sod Succinate 125 Mg/2 Ml Inj IV 60 mg Q6HR MITALI Administration Ondansetron HCl 4 mg 07/06/20 11:01 Ondansetron 4 Mg/2 Ml Inj IV Q8H PRN Nausea And Vomiting Oxycodone/Acetaminophen 1 tab 07/06/20 11:01 Oxycodone /Acetaminophen 5-325mg Tab PO Q6H PRN Pain, Moderate (4-6) Senna 8.6 mg 07/06/20 22:00 07/11/20 09:22 Sennosides 8.6 Mg Tab PO Not Given Q12HR [facility] Sodium Chloride 10 ml 07/06/20 22:00 07/11/20 09:37 Sodium Chloride 0.9% 10 Ml Flush Syringe IV 10 ml BID MITALI Administration Sodium Chloride 10 ml 07/06/20 11:01 Sodium Chloride 0.9% 10 Ml Flush Syringe IV PRN PRN LINE FLUSH Zinc Sulfate 220 mg 07/06/20 16:00 07/11/20 09:23 Zinc Sulfate 220 Mg Cap PO Not Given QDAY [facility]
[2020-07-12 02:50] LABS: Calcium 8.8 mg/dL (8.4-10.2)
[2020-07-12] MEDS: DEXTROSE 5% IN WATER 1,000 ML IV SCH (03:41)
[2020-07-12 05:39] LABS: Hematocrit 38.2 % (30.3-42.9); Mean Corpuscular HGB Conc 31 % (30-34); Mean Corpuscular Volume 82 fl (79-97); Platelet Count 193 K/mm3 (140-440); Red Blood Count 4.66 M/mm3 (3.65-5.03); Red Cell Distribution Width 14.5 % (13.2-15.2)
[2020-07-12] MEDS: HEPARIN 5,000 UNIT/1 ML VIAL SUB-Q SCH ×3 (05:42→21:34)
[2020-07-12] MEDS: INSULIN LISPRO 100 UNIT/ML SUB-Q SCH ×4 (05:43→18:16)
[2020-07-12] MEDS: methylPREDNISolone Sod Succinate 125 MG/2 ML INJ IV SCH ×3 (05:43→17:59)
[2020-07-12] MEDS: hydrALAZINE 10 MG TAB PO SCH (05:45)
[2020-07-12 06:04] LABS: Calcium 9.2 mg/dL (8.4-10.2)
[2020-07-12 06:46] LABS: Total Cells Counted 100
[2020-07-12 06:47] LABS: Anisocytosis 1+; Platelet Estimate Consistent w Auto
[2020-07-12] MEDS: LORazepam 2 MG/ML VIAL IV PRN ×3 (07:22→21:33)
[2020-07-12] MEDS: HALOPERIDOL LACTATE 5 MG/1 ML INJ IV PRN ×3 (07:23→21:34)
[2020-07-12] MEDS: FAMOTIDINE 20 MG/2 ML INJ IV SCH (11:00)
[2020-07-12] MEDS: INSULIN NPH/REGULAR 70/30 INJ SUB-Q SCH ×2 (11:00→17:59)
[2020-07-12] MEDS: DOCUSATE SODIUM 100 MG CAP PO SCH ×2 (11:04→21:35)
[2020-07-12] MEDS: ZINC SULFATE 220 MG CAP PO SCH (11:04)
[2020-07-12] MEDS: ASCORBIC ACID 500 MG TAB PO SCH (11:04)
[2020-07-12] MEDS: SENNOSIDES 8.6 MG TAB PO SCH ×2 (11:04→21:35)
--- NOTE | 2020-07-12 11:25 | Progress Note ---
Assessment and Plan Assessment and plan: Sepsis -Presented with hypoxia, tachypnea and acute hypoxic respiratory failure, acute kidney injury, pneumonia on CXR and COVID-19 infection -07/06 blood cultures x2 pending -Antibiotic therapy -Infectious disease consulted, appreciate recommendations COVID-19 infection -07/06 CXR shows diffuse hazy bilateral lung opacities concerning for viral infection, atypical pneumonia or pulmonary edema with no pleural effusions or pneumothorax -07/06 COVID-19 PCR positive -07/05 COVID-19 PCR at outside facility positive -Infectious disease and pulmonology consulted, appreciate recommendations -Contact/droplet isolation -Pulmonary hygiene -Supplemental oxygen as needed -Antibiotic therapy -07/07 remdesivir therapy started -Steroid therapy, increased by CCM -OOB 3 times daily -Prone to sleep as needed -Anticoagulation per protocol -Vitamin C, vitamin D and zinc -SPO2 monitoring Bilateral pneumonia -07/06 CXR shows diffuse hazy bilateral lung opacities concerning for viral infection, atypical pneumonia or pulmonary edema with no pleural effusions or pneumothorax -Secondary to COVID-19 infection -Antibiotic therapy -Infectious disease consulted, appreciate recommendation -07/06 blood cultures x2 no growth to date Acute hypoxic respiratory failure -Room air SPO2 75% and placed on high flow nasal cannula -Pulmonary consulted, patient recommendations -Steroid therapy -Supplemental oxygen as needed -Pulmonary hygiene -SPO2 monitoring -07/07 AB.4/32 point /20 2.3 with a base excess of -1 on 100% FiO2 via BiPAP -07/07 CXR: Persistent diffuse pulmonary process, pulmonary edema is a concern -07/07 lasix 40mg x1, 07/09 lasix x1 -07/07 proBNP 459 Leukocytosis -07/12 WBC 12.6 -Patient is on steroid therapy -Trend CBC Acute kidney injury -12/2016 creatinine/BUN 0.9/15 -Presented with a creatinine/BUN 1.6/45 -07/07 BUN/Cr 47/1.3, 07/08 BUN/Cr 51/1.2 -Trend BMP -Consider nephrology consult if not improving Lactic acidosis -Presented with a lactic acid of 2.3 -Trend lactic acid -07/07 LA 1.6 Hypernatremia -07/09 sodium 147 which trended up to 159 -D5 W -Trend BMP Hyperchloremia -07/09 chloride 111 which trended up to 120 -Trend BMP Elevated D-dimer -Admit D-dimer 1435 -07/06 nuclear medicine perfusion study shows low probability of pulmonary embolism -07/06 bilateral lower extremity Doppler ultrasound negative for DVT/SVT Elevated troponin/SB -Presented with a troponin of 0.034 -07/06 troponin less than 0.10 -Cardiology consulted, appreciate recommendations -EKG as needed -No complaints of chest pain -Cardiology believes elevated troponin is in setting of acute kidney injury Hypertension -Titrate Antihypertensives as needed -Hydralazine as needed for SBP greater than 160 -Blood pressure monitoring per protocol Diabetes mellitus -07/06 hemoglobin A1c 11.8 -SSI -CC cardiac diet -Accu-Cheks AC at bedtime -Hypoglycemia protocol -07/06 70/30 initiated, titrate as needed DVT prophylaxis -Heparin subcu -GI prophylaxis -SCDs to bilateral lower extremities while in bed History Interval history: This is a 69-year-old Laotian female with limited [place] Islander with hypertension, diabetes mellitus, hyperlipidemia who presented to the hospital on 07/06 via EMS with worsening subjective fevers, headache, body ache, dry cough, dyspnea on exertion, fatigue, headache and nausea since the last week end of May. Patient had a positive COVID-19 PCR on 07/05 as outside facility. Upon arrival to the emergency department patient was hypoxic on room air at 75% and tachypneic. Work-up in the emergency department with a CXR which showed bilateral pneumonia, lactic acidosis at 2.3, acute kidney injury at 1.6/45, elevated D-dimer, elevated troponin and slight hyponatremia 136. Patient received Rocephin, azithromycin and Decadron in the emergency department. Patient was admitted to the hospitalist service as a COVID-19 PUI, acute kidney injury, sepsis, lactic acidosis, and elevated D-dimer with consults to pulmonology and infectious disease. 07/06: COVID-19 PCR positive, azithromycin and Rocephin, Decadron and remdesivir therapy 07/07: Patient is on 100% FiO2 BiPAP therapy with SPO2 in the low 90s and high 80s, hypoxia and ABG, sinus bradycardia noted overnight. Repeat CXR shows persistent diffuse pulmonary process and pulmonary edema therefore she received 40 mg of Lasix x1 and a proBNP is pending per [facility] 07/08: Patient remains on antibiotic therapy, kidney function tests have not worsened, sinus bradycardia still persist and steroid dosing was increased today by [facility]. Patient's daughter was updated today 07/09: Overnight it was noted that the patient developed bilateral small pneumothorax on AM CXR. She still remains on 100% FiO2 via Bipap and her ABG shows hypoxia. Her steroid therapy was changed per [facility] and she received lasix x1 today. 07/10: Still remains hypoxic on BiPAP. Labs reviewed-sodium 152 today. Hold off on IV fluids for today due to ongoing respiratory difficulty. Trend sodium for now and if elevated tomorrow we will start on hypotonic solution. Possible intubation in the next 24 hours if no improvement in respiratory status. Critical care on board 07/11. Her oxygen sats remains stable. Plan to switch to HFNC to see if she tolerated. Started on D5W due to worsening hyponatremia and lethargy. BMP q6 hr ordered 07/12: Patient remains on BiPAP as she was unable to maintain her oxygenation on HFNC, remains hypernatremic and hyperchloremic although improving. Hospitalist Physical - Constitutional Vitals: Temp Pulse Resp BP Pulse Ox 98 F 87 19 117/63 97 07/12/20 08:00 07/12/20 08:30 07/12/20 08:30 07/12/20 08:30 07/12/20 08:00 General appearance: Present: mild distress, obese - EENT Eyes: Present: EOM intact - Neck Neck: Present: normal ROM - Respiratory Respiratory effort: normal Respiratory: bilateral: diminished - Cardiovascular Rhythm: regular Heart Sounds: Present: S1 & S2. Absent: systolic murmur, diastolic murmur - Extremities Extremities: no ischemia, pulses intact, pulses symmetrical, No edema, normal temperature, normal color, Full ROM Peripheral Pulses: within normal limits - Abdominal General gastrointestinal: soft, non-tender, non-distended, normal bowel sounds - Integumentary Integumentary: Present: clear, warm, dry - Psychiatric Psychiatric: appropriate mood/affect, cooperative - Neurologic Neurologic: CNII-XII intact, focal deficits, moves all extremities - Allied Health Allied health notes reviewed: nursing, RT HEART Score - HEART Score Troponin: Troponin T < 0.010 ng/mL (0.00-0.029) 07/07/20 00:22 Results - Labs CBC & Chem 7: 07/12/20 05:18 07/12/20 05:18 Labs: Laboratory Last Values WBC 12.6 K/mm3 (4.5-11.0) H 07/12/20 05:18 RBC 4.66 M/mm3 (3.65-5.03) 07/12/20 05:18 Hgb 12.0 gm/dl (10.1-14.3) 07/12/20 05:18 Hct 38.2 % (30.3-42.9) 07/12/20 05:18 MCV 82 fl (79-97) 07/12/20 05:18 MCH 26 pg (28-32) L 07/12/20 05:18 MCHC 31 % (30-34) 07/12/20 05:18 RDW 14.5 % (13.2-15.2) 07/12/20 05:18 Plt Count 193 K/mm3 (140-440) 07/12/20 05:18 Lymph % (Auto) 4.3 % (13.4-35.0) L 07/09/20 06:51 [place] % (Auto) 3.6 % (0.0-7.3) 07/09/20 06:51 Eos % (Auto) 0.6 % (0.0-4.3) 07/09/20 06:51 Baso % (Auto) 0.3 % (0.0-1.8) 07/09/20 06:51 Lymph # (Auto) 0.4 K/mm3 (1.2-5.4) L 07/09/20 06:51 [place] # (Auto) 0.4 K/mm3 (0.0-0.8) 07/09/20 06:51 Eos # (Auto) 0.1 K/mm3 (0.0-0.4) 07/09/20 06:51 Baso # (Auto) 0.0 K/mm3 (0.0-0.1) 07/09/20 06:51 Add Manual Diff Complete 07/12/20 05:18 Total Counted 100 07/12/20 05:18 Seg Neutrophils % Segregator 07/12/20 05:18 Seg Neuts % (Manual) 93.0 % (40.0-70.0) H 07/12/20 05:18 Band Neutrophils % 4.0 % 07/07/20 02:42 Lymphocytes % (Manual) 4.0 % (13.4-35.0) L 07/12/20 05:18 Monocytes % (Manual) 3.0 % (0.0-7.3) 07/12/20 05:18 Metamyelocytes % 1.0 % 07/10/20 05:25 Nucleated RBC % Not Reportable 07/12/20 05:18 Seg Neutrophils # 9.1 K/mm3 (1.8-7.7) H 07/09/20 06:51 Seg Neutrophils # Man 11.7 K/mm3 (1.8-7.7) H 07/12/20 05:18 Band Neutrophils # 0.0 K/mm3 07/12/20 05:18 Lymphocytes # (Manual) 0.5 K/mm3 (1.2-5.4) L 07/12/20 05:18 Abs React Lymphs (Man) 0.0 K/mm3 07/12/20 05:18 Monocytes # (Manual) 0.4 K/mm3 (0.0-0.8) 07/12/20 05:18 Eosinophils # (Manual) 0.0 K/mm3 (0.0-0.4) 07/12/20 05:18 Basophils # (Manual) 0.0 K/mm3 (0.0-0.1) 07/12/20 05:18 Metamyelocytes # 0.0 K/mm3 07/12/20 05:18 Myelocytes # 0.0 K/mm3 07/12/20 05:18 Promyelocytes # 0.0 K/mm3 07/12/20 05:18 Blast Cells # 0.0 K/mm3 07/12/20 05:18 WBC Morphology Not Reportable 07/12/20 05:18 Hypersegmented Neuts Not Reportable 07/12/20 05:18 Hyposegmented Neuts Not Reportable 07/12/20 05:18 Hypogranular Neuts Not Reportable 07/12/20 05:18 Smudge Cells Not Reportable 07/12/20 05:18 Toxic Granulation Not Reportable 07/12/20 05:18 Toxic Vacuolation Not Reportable 07/12/20 05:18 Dohle Bodies Not Reportable 07/12/20 05:18 Pelger-Huet Anomaly Not Reportable 07/12/20 05:18 Rudy Rods Not Reportable 07/12/20 05:18 Platelet Estimate Consistent w auto 07/12/20 05:18 Clumped Platelets Not Reportable 07/12/20 05:18 Plt Clumps, EDTA Not Reportable 07/12/20 05:18 Large Platelets Not Reportable 07/12/20 05:18 Giant Platelets Not Reportable 07/12/20 05:18 Platelet Satelliting Not Reportable 07/12/20 05:18 Plt Morphology Comment Not Reportable 07/12/20 05:18 RBC Morphology Not Reportable 07/12/20 05:18 Dimorphic RBCs Not Reportable 07/12/20 05:18 Polychromasia Not Reportable 07/12/20 05:18 Hypochromasia Not Reportable 07/12/20 05:18 Poikilocytosis Not Reportable 07/12/20 05:18 Anisocytosis 1+ 07/12/20 05:18 Microcytosis Not Reportable 07/12/20 05:18 Macrocytosis Not Reportable 07/12/20 05:18 Spherocytes Not Reportable 07/12/20 05:18 Pappenheimer Bodies Not Reportable 07/12/20 05:18 Sickle Cells Not Reportable 07/12/20 05:18 Target Cells Not Reportable 07/12/20 05:18 Tear Drop Cells Not Reportable 07/12/20 05:18 Ovalocytes Not Reportable 07/12/20 05:18 Helmet Cells Not Reportable 07/12/20 05:18 [place] Bodies Not Reportable 07/12/20 05:18 [place] Rings Not Reportable 07/12/20 05:18 [place] Cells Not Reportable 07/12/20 05:18 Bite Cells Not Reportable 07/12/20 05:18 Crenated Cell Not Reportable 07/12/20 05:18 Elliptocytes Not Reportable 07/12/20 05:18 Acanthocytes (Spur) Not Reportable 07/12/20 05:18 Rouleaux Not Reportable 07/12/20 05:18 Hemoglobin C Crystals Not Reportable 07/12/20 05:18 Schistocytes Not Reportable 07/12/20 05:18 Malaria parasites Not Reportable 07/12/20 05:18 Shreyas Bodies Not Reportable 07/12/20 05:18 Hem Pathologist Commnt No 07/12/20 05:18 PT 14.7 Sec. (12.2-14.9) 07/06/20 08:50 INR 1.15 (0.87-1.13) H 07/06/20 08:50 APTT 25.9 Sec. (24.2-36.6) 07/06/20 08:50 D-Dimer 1786.87 ng/mlDDU (0-234) H 07/10/20 05:25 ABG pH 7.487 (7.320-7.450) H 07/08/20 02:39 POC ABG pCO2 32.8 mmHg (32.0-48.0) 07/08/20 02:39 POC ABG pO2 52.5 mmHg (83-108) L 07/08/20 02:39 POC ABG HCO3 24.3 07/08/20 02:39 POC ABG Base Excess 1.3 07/08/20 02:39 ABG Hemoglobin 11.8 (12.0-17.5) L 07/08/20 02:39 ABG Oxyhemoglobin 88.3 (94-98) L 07/07/20 02:19 ABG Methemoglobin 0.3 (0.0-1.5) 07/07/20 02:19 ABG Sodium 137.3 mmol/L (136.0-145.0) 07/08/20 02:39 ABG Potassium 4.3 mmol/L (3.40-4.50) 07/08/20 02:39 ABG Chloride 105.0 mmol/L (98-107) 07/08/20 02:39 ABG Glucose 336 mg/dL (65-95) H 07/08/20 02:39 Carboxyhemoglobin 0.2 (0.5-1.5) L 07/07/20 02:19 FiO2 100 07/08/20 02:39 Sodium 152 mmol/L (137-145) H 07/12/20 05:18 Potassium 4.2 mmol/L (3.6-5.0) 07/12/20 05:18 Chloride 113.7 mmol/L (98-107) H 07/12/20 05:18 Carbon Dioxide 24 mmol/L (22-30) 07/12/20 05:18 Anion Gap 19 mmol/L 07/12/20 05:18 BUN 50 mg/dL (7-17) H 07/12/20 05:18 Creatinine 1.1 mg/dL (0.6-1.2) 07/12/20 05:18 Estimated GFR 49 ml/min 07/12/20 05:18 BUN/Creatinine Ratio 45 % 07/12/20 05:18 Glucose 232 mg/dL (65-100) H 07/12/20 05:18 POC Glucose 202 mg/dL (70-105) H 07/12/20 05:16 Hemoglobin A1c 11.8 % (4-6) H 07/06/20 15:44 Lactic Acid 1.60 mmol/L (0.7-2.0) 07/07/20 08:55 Calcium 9.2 mg/dL (8.4-10.2) 07/12/20 05:18 Ferritin 920.8 ng/mL (10.0-200.0) H 07/10/20 05:25 Total Bilirubin 1.00 mg/dL (0.1-1.2) 07/11/20 06:08 AST 38 units/L (5-40) 07/11/20 06:08 ALT 24 units/L (7-56) 07/11/20 06:08 Alkaline Phosphatase 107 units/L (35-129) 07/11/20 06:08 Lactate Dehydrogenase 683 units/L (91-180) H 07/06/20 15:44 Total Creatine Kinase 47 units/L (30-135) 07/07/20 00:22 CK-MB (CK-2) 1.6 ng/mL (0.0-4.0) 07/07/20 00:22 CK-MB (CK-2) Rel Index 3.4 (0-4) 07/07/20 00:22 Troponin T < 0.010 ng/mL (0.00-0.029) 07/07/20 00:22 C-Reactive Protein 2.80 mg/dL (0.00-1.30) H 07/10/20 05:25 NT-Pro-B Natriuret Pep 459.9 pg/mL (0-900) 07/07/20 14:31 Total Protein 6.8 g/dL (6.3-8.2) 07/11/20 06:08 Albumin 3.0 g/dL (3.9-5) L 07/11/20 06:08 Albumin/Globulin Ratio 0.8 % 07/11/20 06:08 Procalcitonin 7.48 ng/mL (<0.15) 07/06/20 15:44 TSH 0.420 mlU/mL (0.270-4.200) 07/08/20 05:07 Arterial Blood Glucose 336 mg/dL (65-95) H 07/08/20 02:39 Arterial Blood Ionized Calcium 4.6 mg/dL (4.6-5.3) 07/08/20 02:39 Urine Color Yellow (Yellow) 07/07/20 03:35 Urine Turbidity Clear (Clear) 07/07/20 03:35 Urine pH 5.0 (5.0-7.0) 07/07/20 03:35 Ur Specific [place] 1.026 (1.003-1.030) 07/07/20 03:35 Urine Protein 30 mg/dl mg/dL (Negative) 07/07/20 03:35 Urine Glucose (UA) >=500 mg/dL (Negative) 07/07/20 03:35 Urine Ketones Neg mg/dL (Negative) 07/07/20 03:35 Urine Blood Neg (Negative) 07/07/20 03:35 Urine Nitrite Neg (Negative) 07/07/20 03:35 Urine Bilirubin Neg (Negative) 07/07/20 03:35 Urine Urobilinogen 2.0 mg/dL (<2.0) 07/07/20 03:35 Ur Leukocyte Esterase Neg (Negative) 07/07/20 03:35 Urine WBC (Auto) < 1.0 /HPF (0.0-6.0) 07/07/20 03:35 Urine RBC (Auto) 0.0 /HPF (0.0-6.0) 07/07/20 03:35 U Epithel Cells (Auto) < 1.0 /HPF (0-13.0) 07/07/20 03:35 Urine Bacteria (Auto) 1+ /HPF (Negative) 07/07/20 03:35 Urine Osmolality 731 Mosm/kg 07/07/20 03:35 Urine Sodium 54 mmol/L 07/07/20 03:35 Coronavirus (PCR) Positive (Negative) A 07/06/20 09:26 Microbiology: Microbiology 07/06/20 08:50 Peripheral/Venous Blood Culture - Final NO GROWTH AFTER 5 DAYS 07/06/20 08:50 Peripheral/Venous Blood Culture - Final NO GROWTH AFTER 5 DAYS - Diagnostic Impressions Diagnostic Impressions: Echocardiogram 07/08/20 09:36 Transthoracic Echocardiogram Indication: Chest pain BP: 129/66 HR: 67 Conclusions *The study is technically limited due to poor acoustic windows. *Global left ventricular systolic function is normal. *The estimated ejection fraction is greater than 55-60%. *Mild concentric left ventricular hypertrophy is observed. *There is trace of mitral regurgitation. *The right heart chambers are not well visualized. Findings Procedure Info: The study quality is poor. The study is technically limited due to poor acoustic windows. Left Ventricle: The left ventricular chamber size is normal. Mild concentric left ventricular hypertrophy is observed. Global left ventricular systolic function is normal. The estimated ejection fraction is 55-60%. Left Atrium: The left atrial chamber size is normal. Right Ventricle: The right ventricle is not well visualized. Right Atrium: The right atrium is not well visualized. Aortic Valve: The aortic valve leaflets are mildly thickened. There is no evidence of aortic regurgitation. There is no evidence of aortic stenosis. Mitral Valve: The mitral valve leaflets are mildly thickened. There is trace of mitral regurgitation. There is no evidence of mitral stenosis. Tricuspid Valve: The tricuspid valve is not well visualized. Pulmonic Valve: The pulmonic valve is not well visualized. Pericardium: There is no pericardial effusion. Aorta: There is no dilatation of the aortic root. Venous: The inferior vena cava appears normal in size. Measurements Chambers 2D Name Value Normal Range IVSd (2D) 1.02 cm (0.6 - 1.1) LVPWd (2D) 1.02 cm (0.6 - 1.1) LVIDd (2D) 4.88 cm (3.7 - 5.6) LVIDs (2D) 3.22 cm (2 - 3.8) LV FS (2D) 33.94 % - EF Teichholz (2D) 62.68 % - Ao root diameter (2D) 2.8 cm (2 - 3.7) Diastolic/Systolic Function Name Value Normal Range MV E-wave Vmax 0.37 m/sec - MV deceleration time 185.21 msec - MV A-wave Vmax 0.35 m/sec - MV E:A ratio 1.07 ratio - Aortic Valve Name Value Normal Range AV Vmax 1.29 m/sec - AV VTI 24.04 cm - AV peak gradient 6.69 mmHg - AV mean gradient 3.19 mmHg - LVOT diameter 2.01 cm - LVOT Vmax 1.07 m/sec - LVOT VTI 21.78 cm - LVOT peak gradient 4.56 mmHg - LVOT mean gradient 2.37 mmHg - SV LVOT 69.26 ml - LEOBARDO (continuity Vmax) 2.63 cm2 - LEOBARDO (continuity VTI) 2.88 cm2 - Pulmonic Valve/Qp:Qs Name Value Normal Range PV acceleration time 95.15 msec - Beal/IV: Voiding Method External Female Catheter Active Medications - Current Medications Current Medications: Generic Name Dose Route Start Last Admin Trade Name Freq PRN Reason Stop Dose Admin Acetaminophen 650 mg 07/06/20 11:01 07/09/20 16:35 Acetaminophen 325 Mg Tab PO 650 mg Q4H PRN Administration Pain MILD(1-3)/Fever >100.5/OHARA Acetaminophen 650 mg 07/08/20 01:34 07/08/20 02:04 Acetaminophen 650 Mg Rect Supp MI 650 mg Q4H PRN Administration PainMild (1-3),fever>100.5,OHARA Al Hydrox/Mg Hydrox/Simethicone 30 ml 07/06/20 11:01 Alum-Mag Hydroxide-Simethicone [id number]/5ml Oral Liqd 30 Ml PO Q4H PRN Indigestion Ascorbic Acid 500 mg 07/06/20 16:00 07/12/20 11:04 Ascorbic Acid 500 Mg Tab PO Not Given QDAY MITALI Dextrose 50 ml 07/06/20 11:01 Dextrose 50% In Water (25gm) 50 Ml Syringe IV Q30MIN PRN Hypoglycemia Protocol Docusate Sodium 100 mg 07/06/20 22:00 07/12/20 11:04 Docusate Sodium 100 Mg Cap PO Not Given BID MITALI Famotidine 20 mg 07/07/20 10:00 07/11/20 09:37 Famotidine 20 Mg/2 Ml Inj IV 20 mg DAILY MITALI Administration Haloperidol Lactate 5 mg 07/10/20 09:00 07/12/20 07:23 Haloperidol Lactate 5 Mg/1 Ml Inj IV 5 mg Q6H PRN Administration Agitation Heparin Sodium (Porcine) 7,500 unit 07/07/20 14:00 07/12/20 05:42 Heparin 5,000 Unit/1 Ml Vial SUB-Q 7,500 unit Q8HR MITALI Administration Hydralazine HCl 10 mg 07/07/20 07:28 Hydralazine 20 Mg/1 Ml Inj IV Q4HR PRN Hypertension Hydralazine HCl 10 mg 07/07/20 08:00 07/12/20 05:45 Hydralazine 10 Mg Tab PO Not Given Q8HR MITALI Dextrose 1,000 mls @ 125 mls/hr 07/11/20 09:00 07/12/20 03:41 D5w IV 125 mls/hr DIRECT MITALI Administration Insulin Human Isoph/Insulin Regular 16 unit 07/12/20 08:30 Insulin Nph/Regular 70/30 Inj SUB-Q BIDDIAB MITALI Insulin Human Lispro 0 unit 07/07/20 09:00 07/12/20 05:44 Insulin Lispro 100 Unit/Ml SUB-Q 4 unit Q6HR MITALI Administration Protocol Lorazepam 0.5 mg 07/08/20 11:00 07/12/20 07:22 Lorazepam 2 Mg/Ml Vial IV 0.5 mg Q4H PRN Administration Anxiety Methylprednisolone Sodium Succinate 60 mg 07/08/20 13:00 07/12/20 05:43 Methylprednisolone Sod Succinate 125 Mg/2 Ml Inj IV 60 mg Q6HR MITALI Administration Ondansetron HCl 4 mg 07/06/20 11:01 Ondansetron 4 Mg/2 Ml Inj IV Q8H PRN Nausea And Vomiting Oxycodone/Acetaminophen 1 tab 07/06/20 11:01 Oxycodone /Acetaminophen 5-325mg Tab PO Q6H PRN Pain, Moderate (4-6) Senna 8.6 mg 07/06/20 22:00 07/12/20 11:04 Sennosides 8.6 Mg Tab PO Not Given Q12HR MITALI Sodium Chloride 10 ml 07/06/20 22:00 07/12/20 07:24 Sodium Chloride 0.9% 10 Ml Flush Syringe IV Not Given BID MITALI Sodium Chloride 10 ml 07/06/20 11:01 Sodium Chloride 0.9% 10 Ml Flush Syringe IV PRN PRN LINE FLUSH Zinc Sulfate 220 mg 07/06/20 16:00 07/12/20 11:04 Zinc Sulfate 220 Mg Cap PO Not Given QDAY MITALI
--- NOTE | 2020-07-12 13:06 | Progress Note ---
Assessment and Plan 69 y/o female, covid positive admitted with acute respiratory failure. 07/12/20: Will ask RT to attempt HFNC again today, also attempt to feed patient again. Also if able to allow daughter to at least call and speak to her if possible. Wean FiO2 back down on bipap as patient had significant desats this am but are better now. Guarded prognosis. Updated daughter this am. 07/11/20: Will attempt HFNC this afternoon. IF tolerates will allow patient to eat as well. Daughter wants to speak with her if possible. If she tolerates HFNC with eating then we will call her. Agree with D5W for insensible losses. Continue High dose steroids. Guarded prognosis. 07/10/20: Updated daughter this morning. Will hold on intubation as of right now. Will add scheduled haldol to see if this helps patient to relax and not fight the bipap mask. Really trying to avoid intubation given her COVID positive state and history of outcomes of ventilated patients. Will continue steroids at 60q6. Need to address nutrition soon. If intubated then will place NG/OG tube for supplementation. No further lasix as no improvement. Guarded prognosis. No current indication for ABG. Know that O2 will be marginal given requirements. Will cancel current order. 07/09/20: Continue steroids and Remdesivir. I increased steroids to 60q6 on yesterday. Continue NPO state and Continue bipap. Trying very had to not intubate but given lack of improvement and lack of nutrition, may have to electively do so in the next 12-24 hours. Will give a small dose of IV lasix today. Prognosis is very very guarded. Apparently is upstairs as well. 07/08/20: BNP was high normal, hold on lasix today. Continue steroids and remdesivir, may consider increasing steroids to BID. Continue bipap, NPO. Will give some ativan, very low dose PRN to see if this helps with work of breathing. Sinus ravindra is stable. Guarded prognosis. Doing everything to prevent extubation. 1. Will check bnP 2. Agree with steroids and remdesivir 3. Lasix 40mg IV x1 given today 4. Continue bipap for now, wean for sats >88% but wait a few hours until lasix is given. 5. PRone is possible 6. Guarded prognosis. If BNP elevated would need echo 7. Spoke with nursing about bradycardia, sinus on EKG, but if persistently low in 30's please repeat EKG Subjective Date of service: 07/12/20 Interval history: Tolerated Vapotherm briefly yesterday but had to have a nonrebreather on as well. Patient also would not eat and was not able to talk to daughter. I called the daughter this am to update her. Objective Vital Signs - 12hr 07/12/20 07/12/20 07/12/20 01:30 02:00 02:30 Temperature Pulse Rate 63 66 65 Pulse Rate [ From Monitor] Respiratory 19 19 17 Rate Blood Pressure 118/58 130/63 130/63 O2 Sat by Pulse 99 99 99 Oximetry 07/12/20 07/12/20 07/12/20 03:00 03:27 03:30 Temperature 98.2 F Pulse Rate 64 63 Pulse Rate [ From Monitor] Respiratory 16 16 Rate Blood Pressure 116/71 116/71 O2 Sat by Pulse 98 98 Oximetry 07/12/20 07/12/20 07/12/20 04:00 04:30 05:00 Temperature Pulse Rate 68 73 88 Pulse Rate [ 68 From Monitor] Respiratory 17 15 18 Rate Blood Pressure 102/62 102/62 102/62 O2 Sat by Pulse 98 96 93 Oximetry 07/12/20 07/12/20 07/12/20 05:30 05:45 05:54 Temperature Pulse Rate 86 90 94 H Pulse Rate [ From Monitor] Respiratory 14 38 H Rate Blood Pressure 115/74 115/74 115/74 O2 Sat by Pulse 95 93 Oximetry 07/12/20 07/12/20 07/12/20 06:00 06:30 07:00 Temperature Pulse Rate 77 84 109 H Pulse Rate [ From Monitor] Respiratory 18 15 31 H Rate Blood Pressure 122/76 122/76 122/76 O2 Sat by Pulse 93 96 91 Oximetry 07/12/20 07/12/20 07/12/20 07:30 07:42 08:00 Temperature 98 F Pulse Rate 73 78 Pulse Rate [ 73 From Monitor] Respiratory 19 15 Rate Blood Pressure 134/95 117/63 O2 Sat by Pulse 97 92 86 Oximetry 07/12/20 07/12/20 07/12/20 08:30 09:00 09:30 Temperature Pulse Rate 87 73 75 Pulse Rate [ From Monitor] Respiratory 19 20 17 Rate Blood Pressure 117/63 100/42 100/42 O2 Sat by Pulse 99 98 Oximetry 07/12/20 07/12/20 07/12/20 10:00 10:30 11:00 Temperature Pulse Rate 81 70 69 Pulse Rate [ From Monitor] Respiratory 20 19 18 Rate Blood Pressure 109/68 109/68 104/38 O2 Sat by Pulse 98 98 97 Oximetry 07/12/20 07/12/20 11:30 12:00 Temperature 97.7 F Pulse Rate 68 71 Pulse Rate [ 67 From Monitor] Respiratory 8 L 17 Rate Blood Pressure 109/68 95/42 O2 Sat by Pulse 98 96 Oximetry Constitutional: no acute distress, alert, other (full face mask on for bipap therapy.) Eyes: non-icteric Neck: supple Ascultation: Bilateral: diminished breath sounds CBC and BMP: 07/12/20 05:18 07/12/20 05:18 ABG, PT/INR, D-dimer: ABG ABG pH 7.487 (7.320-7.450) H 07/08/20 02:39 POC ABG pCO2 32.8 mmHg (32.0-48.0) 07/08/20 02:39 POC ABG pO2 52.5 mmHg (83-108) L 07/08/20 02:39 POC ABG HCO3 24.3 07/08/20 02:39 PT/INR, D-dimer PT 14.7 Sec. (12.2-14.9) 07/06/20 08:50 INR 1.15 (0.87-1.13) H 07/06/20 08:50 D-Dimer 1786.87 ng/mlDDU (0-234) H 07/10/20 05:25 Abnormal lab findings: Abnormal Labs 07/06/20 07/06/20 07/06/20 08:50 08:50 08:50 WBC MCV 78 L MCH 26 L Lymph % (Auto) Lymph # (Auto) Seg Neutrophils % Seg Neuts % (Manual) 80.0 H Lymphocytes % (Manual) 10.0 L Nucleated RBC % 4.0 H Seg Neutrophils # Seg Neutrophils # Man Lymphocytes # (Manual) 0.9 L INR 1.15 H D-Dimer 1435.13 H ABG pH POC ABG pCO2 POC ABG pO2 ABG Hemoglobin ABG Oxyhemoglobin ABG Glucose Carboxyhemoglobin Sodium 136 L Chloride BUN 45 H Creatinine 1.6 H Glucose 385 H POC Glucose Hemoglobin A1c Lactic Acid Ferritin Alkaline Phosphatase 130 H Lactate Dehydrogenase Troponin T 0.034 H C-Reactive Protein Albumin 3.2 L Arterial Blood Glucose Coronavirus (PCR) 07/06/20 07/06/20 07/06/20 08:50 08:50 08:50 WBC MCV MCH Lymph % (Auto) Lymph # (Auto) Seg Neutrophils % Seg Neuts % (Manual) Lymphocytes % (Manual) Nucleated RBC % Seg Neutrophils # Seg Neutrophils # Man Lymphocytes # (Manual) INR D-Dimer ABG pH POC ABG pCO2 POC ABG pO2 ABG Hemoglobin ABG Oxyhemoglobin ABG Glucose Carboxyhemoglobin Sodium Chloride BUN Creatinine Glucose 385 H POC Glucose Hemoglobin A1c Lactic Acid 2.30 H* Ferritin 1158.0 H Alkaline Phosphatase Lactate Dehydrogenase 471 H Troponin T C-Reactive Protein 10.40 H Albumin Arterial Blood Glucose Coronavirus (PCR) 07/06/20 07/06/20 07/06/20 09:26 15:44 15:44 WBC MCV MCH Lymph % (Auto) Lymph # (Auto) Seg Neutrophils % Seg Neuts % (Manual) Lymphocytes % (Manual) Nucleated RBC % Seg Neutrophils # Seg Neutrophils # Man Lymphocytes # (Manual) INR D-Dimer ABG pH POC ABG pCO2 POC ABG pO2 ABG Hemoglobin ABG Oxyhemoglobin ABG Glucose Carboxyhemoglobin Sodium Chloride BUN Creatinine Glucose POC Glucose Hemoglobin A1c 11.8 H Lactic Acid 2.40 H* Ferritin Alkaline Phosphatase Lactate Dehydrogenase Troponin T C-Reactive Protein Albumin Arterial Blood Glucose Coronavirus (PCR) Positive A 07/06/20 07/06/20 07/06/20 15:44 17:40 20:35 WBC MCV MCH Lymph % (Auto) Lymph # (Auto) Seg Neutrophils % Seg Neuts % (Manual) Lymphocytes % (Manual) Nucleated RBC % Seg Neutrophils # Seg Neutrophils # Man Lymphocytes # (Manual) INR D-Dimer ABG pH 7.455 H POC ABG pCO2 30.9 L POC ABG pO2 50.0 L ABG Hemoglobin 11.1 L ABG Oxyhemoglobin 80.6 L ABG Glucose 357 H Carboxyhemoglobin 0.3 L Sodium Chloride BUN Creatinine Glucose POC Glucose 324 H Hemoglobin A1c Lactic Acid Ferritin Alkaline Phosphatase Lactate Dehydrogenase 683 H Troponin T C-Reactive Protein Albumin Arterial Blood Glucose 357 H Coronavirus (PCR) 07/06/20 07/06/20 07/07/20 21:49 23:52 02:19 WBC MCV MCH Lymph % (Auto) Lymph # (Auto) Seg Neutrophils % Seg Neuts % (Manual) Lymphocytes % (Manual) Nucleated RBC % Seg Neutrophils # Seg Neutrophils # Man Lymphocytes # (Manual) INR D-Dimer ABG pH 7.455 H POC ABG pCO2 31.9 L POC ABG pO2 50.7 L 62.0 L ABG Hemoglobin 10.8 L 10.8 L ABG Oxyhemoglobin 80.2 L 88.3 L ABG Glucose 358 H 330 H Carboxyhemoglobin 0.2 L 0.2 L Sodium Chloride BUN Creatinine Glucose POC Glucose 336 H Hemoglobin A1c Lactic Acid Ferritin Alkaline Phosphatase Lactate Dehydrogenase Troponin T C-Reactive Protein Albumin Arterial Blood Glucose 358 H 330 H Coronavirus (PCR) 07/07/20 07/07/20 07/07/20 02:42 02:42 07:54 WBC MCV MCH 26 L Lymph % (Auto) Lymph # (Auto) Seg Neutrophils % Seg Neuts % (Manual) 85.0 H Lymphocytes % (Manual) 6.0 L Nucleated RBC % Seg Neutrophils # Seg Neutrophils # Man 7.9 H Lymphocytes # (Manual) 0.6 L INR D-Dimer ABG pH POC ABG pCO2 POC ABG pO2 ABG Hemoglobin ABG Oxyhemoglobin ABG Glucose Carboxyhemoglobin Sodium Chloride BUN 47 H Creatinine 1.3 H Glucose 336 H POC Glucose 289 H Hemoglobin A1c Lactic Acid Ferritin Alkaline Phosphatase Lactate Dehydrogenase Troponin T C-Reactive Protein Albumin Arterial Blood Glucose Coronavirus (PCR) 07/07/20 07/07/20 07/07/20 11:07 15:40 23:27 WBC MCV MCH Lymph % (Auto) Lymph # (Auto) Seg Neutrophils % Seg Neuts % (Manual) Lymphocytes % (Manual) Nucleated RBC % Seg Neutrophils # Seg Neutrophils # Man Lymphocytes # (Manual) INR D-Dimer ABG pH POC ABG pCO2 POC ABG pO2 ABG Hemoglobin ABG Oxyhemoglobin ABG Glucose Carboxyhemoglobin Sodium Chloride BUN Creatinine Glucose POC Glucose 322 H 346 H 274 H Hemoglobin A1c Lactic Acid Ferritin Alkaline Phosphatase Lactate Dehydrogenase Troponin T C-Reactive Protein Albumin Arterial Blood Glucose Coronavirus (PCR) 07/08/20 07/08/20 07/08/20 02:39 05:07 05:07 WBC MCV MCH Lymph % (Auto) Lymph # (Auto) Seg Neutrophils % Seg Neuts % (Manual) Lymphocytes % (Manual) Nucleated RBC % Seg Neutrophils # Seg Neutrophils # Man Lymphocytes # (Manual) INR D-Dimer 2542.57 H ABG pH 7.487 H POC ABG pCO2 POC ABG pO2 52.5 L ABG Hemoglobin 11.8 L ABG Oxyhemoglobin ABG Glucose 336 H Carboxyhemoglobin Sodium Chloride BUN 51 H Creatinine Glucose 326 H POC Glucose Hemoglobin A1c Lactic Acid Ferritin Alkaline Phosphatase Lactate Dehydrogenase Troponin T C-Reactive Protein 4.30 H Albumin 3.2 L Arterial Blood Glucose 336 H Coronavirus (PCR) 07/08/20 07/08/20 07/08/20 05:07 05:07 05:21 WBC MCV MCH 25 L Lymph % (Auto) 7.9 L Lymph # (Auto) 0.6 L Seg Neutrophils % 85.6 H Seg Neuts % (Manual) Lymphocytes % (Manual) Nucleated RBC % Seg Neutrophils # Seg Neutrophils # Man Lymphocytes # (Manual) INR D-Dimer ABG pH POC ABG pCO2 POC ABG pO2 ABG Hemoglobin ABG Oxyhemoglobin ABG Glucose Carboxyhemoglobin Sodium Chloride BUN Creatinine Glucose POC Glucose 293 H Hemoglobin A1c Lactic Acid Ferritin 975.6 H Alkaline Phosphatase Lactate Dehydrogenase Troponin T C-Reactive Protein Albumin Arterial Blood Glucose Coronavirus (PCR) 07/08/20 07/08/20 07/08/20 08:59 11:39 17:57 WBC MCV MCH Lymph % (Auto) Lymph # (Auto) Seg Neutrophils % Seg Neuts % (Manual) Lymphocytes % (Manual) Nucleated RBC % Seg Neutrophils # Seg Neutrophils # Man Lymphocytes # (Manual) INR D-Dimer ABG pH POC ABG pCO2 POC ABG pO2 ABG Hemoglobin ABG Oxyhemoglobin ABG Glucose Carboxyhemoglobin Sodium Chloride BUN Creatinine Glucose POC Glucose 270 H 285 H 221 H Hemoglobin A1c Lactic Acid Ferritin Alkaline Phosphatase Lactate Dehydrogenase Troponin T C-Reactive Protein Albumin Arterial Blood Glucose Coronavirus (PCR) 07/08/20 07/08/20 07/09/20 21:26 23:29 05:29 WBC MCV MCH Lymph % (Auto) Lymph # (Auto) Seg Neutrophils % Seg Neuts % (Manual) Lymphocytes % (Manual) Nucleated RBC % Seg Neutrophils # Seg Neutrophils # Man Lymphocytes # (Manual) INR D-Dimer ABG pH POC ABG pCO2 POC ABG pO2 ABG Hemoglobin ABG Oxyhemoglobin ABG Glucose Carboxyhemoglobin Sodium Chloride BUN Creatinine Glucose POC Glucose 232 H 231 H 196 H Hemoglobin A1c Lactic Acid Ferritin Alkaline Phosphatase Lactate Dehydrogenase Troponin T C-Reactive Protein Albumin Arterial Blood Glucose Coronavirus (PCR) 07/09/20 07/09/20 07/09/20 06:51 06:51 12:10 WBC MCV MCH 26 L Lymph % (Auto) 4.3 L Lymph # (Auto) 0.4 L Seg Neutrophils % Seg Neuts % (Manual) Lymphocytes % (Manual) 1.0 L Nucleated RBC % Seg Neutrophils # 9.1 H Seg Neutrophils # Man 9.8 H Lymphocytes # (Manual) 0.1 L INR D-Dimer ABG pH POC ABG pCO2 POC ABG pO2 ABG Hemoglobin ABG Oxyhemoglobin ABG Glucose Carboxyhemoglobin Sodium 147 H Chloride 111.9 H BUN 52 H Creatinine Glucose 207 H POC Glucose 176 H Hemoglobin A1c Lactic Acid Ferritin Alkaline Phosphatase Lactate Dehydrogenase Troponin T C-Reactive Protein Albumin 3.2 L Arterial Blood Glucose Coronavirus (PCR) 07/09/20 07/09/20 07/10/20 17:49 23:36 05:17 WBC MCV MCH Lymph % (Auto) Lymph # (Auto) Seg Neutrophils % Seg Neuts % (Manual) Lymphocytes % (Manual) Nucleated RBC % Seg Neutrophils # Seg Neutrophils # Man Lymphocytes # (Manual) INR D-Dimer ABG pH POC ABG pCO2 POC ABG pO2 ABG Hemoglobin ABG Oxyhemoglobin ABG Glucose Carboxyhemoglobin Sodium Chloride BUN Creatinine Glucose POC Glucose 196 H 154 H 178 H Hemoglobin A1c Lactic Acid Ferritin Alkaline Phosphatase Lactate Dehydrogenase Troponin T C-Reactive Protein Albumin Arterial Blood Glucose Coronavirus (PCR) 07/10/20 07/10/20 07/10/20 05:25 05:25 05:25 WBC MCV MCH Lymph % (Auto) Lymph # (Auto) Seg Neutrophils % Seg Neuts % (Manual) Lymphocytes % (Manual) Nucleated RBC % Seg Neutrophils # Seg Neutrophils # Man Lymphocytes # (Manual) INR D-Dimer 1786.87 H ABG pH POC ABG pCO2 POC ABG pO2 ABG Hemoglobin ABG Oxyhemoglobin ABG Glucose Carboxyhemoglobin Sodium 152 H Chloride 112.8 H BUN 60 H Creatinine Glucose 204 H POC Glucose Hemoglobin A1c Lactic Acid Ferritin 920.8 H Alkaline Phosphatase Lactate Dehydrogenase Troponin T C-Reactive Protein 2.80 H Albumin 3.3 L Arterial Blood Glucose Coronavirus (PCR) 0207/10/20 07/10/20 05:25 12:39 17:56 WBC MCV MCH 27 L Lymph % (Auto) Lymph # (Auto) Seg Neutrophils % Seg Neuts % (Manual) 92.0 H Lymphocytes % (Manual) 3.0 L Nucleated RBC % Seg Neutrophils # Seg Neutrophils # Man 9.5 H Lymphocytes # (Manual) 0.3 L INR D-Dimer ABG pH POC ABG pCO2 POC ABG pO2 ABG Hemoglobin ABG Oxyhemoglobin ABG Glucose Carboxyhemoglobin Sodium Chloride BUN Creatinine Glucose POC Glucose 174 H 177 H Hemoglobin A1c Lactic Acid Ferritin Alkaline Phosphatase Lactate Dehydrogenase Troponin T C-Reactive Protein Albumin Arterial Blood Glucose Coronavirus (PCR) 07/10/20 07/11/20 07/11/20 23:13 05:20 06:08 WBC MCV MCH Lymph % (Auto) Lymph # (Auto) Seg Neutrophils % Seg Neuts % (Manual) Lymphocytes % (Manual) Nucleated RBC % Seg Neutrophils # Seg Neutrophils # Man Lymphocytes # (Manual) INR D-Dimer ABG pH POC ABG pCO2 POC ABG pO2 ABG Hemoglobin ABG Oxyhemoglobin ABG Glucose Carboxyhemoglobin Sodium 159 H Chloride 120.9 H BUN 57 H Creatinine Glucose 162 H POC Glucose 107 H 129 H Hemoglobin A1c Lactic Acid Ferritin Alkaline Phosphatase Lactate Dehydrogenase Troponin T C-Reactive Protein Albumin 3.0 L Arterial Blood Glucose Coronavirus (PCR) 07/11/20 07/11/20 07/11/20 12:08 17:21 23:20 WBC MCV MCH Lymph % (Auto) Lymph # (Auto) Seg Neutrophils % Seg Neuts % (Manual) Lymphocytes % (Manual) Nucleated RBC % Seg Neutrophils # Seg Neutrophils # Man Lymphocytes # (Manual) INR D-Dimer ABG pH POC ABG pCO2 POC ABG pO2 ABG Hemoglobin ABG Oxyhemoglobin ABG Glucose Carboxyhemoglobin Sodium Chloride BUN Creatinine Glucose POC Glucose 238 H 240 H 176 H Hemoglobin A1c Lactic Acid Ferritin Alkaline Phosphatase Lactate Dehydrogenase Troponin T C-Reactive Protein Albumin Arterial Blood Glucose Coronavirus (PCR) 07/12/20 07/12/20 07/12/20 01:55 05:16 05:18 WBC 12.6 H MCV MCH 26 L Lymph % (Auto) Lymph # (Auto) Seg Neutrophils % Seg Neuts % (Manual) 93.0 H Lymphocytes % (Manual) 4.0 L Nucleated RBC % Seg Neutrophils # Seg Neutrophils # Man 11.7 H Lymphocytes # (Manual) 0.5 L INR D-Dimer ABG pH POC ABG pCO2 POC ABG pO2 ABG Hemoglobin ABG Oxyhemoglobin ABG Glucose Carboxyhemoglobin Sodium 151 H D Chloride 115.5 H BUN 52 H Creatinine Glucose 250 H POC Glucose 202 H Hemoglobin A1c Lactic Acid Ferritin Alkaline Phosphatase Lactate Dehydrogenase Troponin T C-Reactive Protein Albumin Arterial Blood Glucose Coronavirus (PCR) 07/12/20 07/12/20 05:18 11:50 WBC MCV MCH Lymph % (Auto) Lymph # (Auto) Seg Neutrophils % Seg Neuts % (Manual) Lymphocytes % (Manual) Nucleated RBC % Seg Neutrophils # Seg Neutrophils # Man Lymphocytes # (Manual) INR D-Dimer ABG pH POC ABG pCO2 POC ABG pO2 ABG Hemoglobin ABG Oxyhemoglobin ABG Glucose Carboxyhemoglobin Sodium 152 H Chloride 113.7 H BUN 50 H Creatinine Glucose 232 H POC Glucose 218 H Hemoglobin A1c Lactic Acid Ferritin Alkaline Phosphatase Lactate Dehydrogenase Troponin T C-Reactive Protein Albumin Arterial Blood Glucose Coronavirus (PCR)
--- NOTE | 2020-07-12 18:02 | Progress Note ---
Assessment and Plan Cultures: SARS CoV2 PCR: Positive 07/06/2020 blood culture: No growth A/P: 69-year-old female with hypertension, diabetes: #Sepsis: Secondary to COVID-19 #Bilateral pneumonia: Secondary to COVID-19 #Acute hypoxic respiratory failure: On HFNC/BiPAP #CARMEN: Monitor renal function #Elevated D-dimer: VTE evaluation negative. Recs: -continue steroids, dosing per ICU -Completed empiric antibiotics -Completed remdesivir -prophylactic anticoagulation based on d-dimer per hospital protocol -trend ferritin, LDH, d-dimer, CRP every 2-3 days for risk stratification and to assess disease progression -guarded prognosis Addison Kathleen MD [facility] ([facility] O: [phone] F: [phone] Subjective Date of service: 07/12/20 Interval history: Afebrile, white count 12.6. Objective - Exam Narrative Exam: Physical exam deferred due to PPE conservation strategy. Please refer to primary team's note. - Constitutional Vitals: Vital Signs Temp Pulse Resp BP Pulse Ox 98 F 69 19 113/70 97 07/12/20 16:00 07/12/20 17:00 07/12/20 17:00 07/12/20 17:00 07/12/20 17:00 Temperature -Last 24 Hours Temperature 98 F Temperature 97.7 F Temperature 98 F Temperature 98.2 F Temperature 97.4 F Temperature 98.4 F - Labs CBC & Chem 7: 07/12/20 05:18 07/12/20 05:18 Labs: Abnormal lab results 07/11/20 07/12/20 07/12/20 Range/Units 23:20 01:55 05:16 WBC (4.5-11.0) K/mm3 MCH (28-32) pg Seg Neuts % (Manual) (40.0-70.0) % Lymphocytes % (Manual) (13.4-35.0) % Seg Neutrophils # Man (1.8-7.7) K/mm3 Lymphocytes # (Manual) (1.2-5.4) K/mm3 Sodium 151 H D (137-145) mmol/L Chloride 115.5 H (98-107) mmol/L BUN 52 H (7-17) mg/dL Glucose 250 H (65-100) mg/dL POC Glucose 176 H 202 H (70-105) mg/dL 07/12/20 07/12/20 07/12/20 Range/Units 05:18 05:18 11:50 WBC 12.6 H (4.5-11.0) K/mm3 MCH 26 L (28-32) pg Seg Neuts % (Manual) 93.0 H (40.0-70.0) % Lymphocytes % (Manual) 4.0 L (13.4-35.0) % Seg Neutrophils # Man 11.7 H (1.8-7.7) K/mm3 Lymphocytes # (Manual) 0.5 L (1.2-5.4) K/mm3 Sodium 152 H (137-145) mmol/L Chloride 113.7 H (98-107) mmol/L BUN 50 H (7-17) mg/dL Glucose 232 H (65-100) mg/dL POC Glucose 218 H (70-105) mg/dL
[2020-07-13] MEDS: INSULIN LISPRO 100 UNIT/ML SUB-Q SCH ×4 (00:22→18:55)
[2020-07-13] MEDS: LORazepam 2 MG/ML VIAL IV PRN ×2 (03:26→07:44)
[2020-07-13] MEDS: HALOPERIDOL LACTATE 5 MG/1 ML INJ IV PRN (03:27)
[2020-07-13] MEDS: DEXTROSE 5% IN WATER 1,000 ML IV SCH (05:30)
[2020-07-13 05:33] LABS: Hematocrit 32.7 % (30.3-42.9); Hemoglobin 10.5 gm/dl (10.1-14.3); Mean Corpuscular HGB Conc 32 % (30-34); Mean Corpuscular Volume 81 fl (79-97); Platelet Count 141 K/mm3 (140-440); Red Blood Count 4.05 M/mm3 (3.65-5.03); Red Cell Distribution Width 14.7 % (13.2-15.2)
[2020-07-13 05:39] LABS: BUN/Creatinine Ratio 49; Blood Urea Nitrogen 44 mg/dL (7-17); Calcium 8.5 mg/dL (8.4-10.2); Hemolysis Index 16
[2020-07-13] MEDS: HEPARIN 5,000 UNIT/1 ML VIAL SUB-Q SCH ×3 (06:23→21:37)
[2020-07-13] MEDS: methylPREDNISolone Sod Succinate 125 MG/2 ML INJ IV SCH ×3 (06:24→18:55)
[2020-07-13] MEDS: DOCUSATE SODIUM 100 MG CAP PO SCH ×2 (09:16→21:38)
[2020-07-13] MEDS: SENNOSIDES 8.6 MG TAB PO SCH ×2 (09:16→21:38)
[2020-07-13] MEDS: ASCORBIC ACID 500 MG TAB PO SCH (09:17)
[2020-07-13] MEDS: ZINC SULFATE 220 MG CAP PO SCH (09:17)
[2020-07-13] MEDS: FAMOTIDINE 20 MG/2 ML INJ IV SCH (10:06)
[2020-07-13] MEDS: INSULIN NPH/REGULAR 70/30 INJ SUB-Q SCH ×2 (10:07→19:30)
--- NOTE | 2020-07-13 10:09 | Progress Note ---
Assessment and Plan 69 y/o female, covid positive admitted with acute respiratory failure. 07/13/20: Will electively intubate today. Asked Anesthesia to help with this as patient will likely need paralytic therapy to assist with procedure. Will place on lung protective strategy. Spoke with daughter and explained that even though intubation is the next step, not a guarantee that she will improve with this. Prognosis is very very guarded. Will feed and place jo. Nutrition consult. 07/12/20: Will ask RT to attempt HFNC again today, also attempt to feed patient again. Also if able to allow daughter to at least call and speak to her if possible. Wean FiO2 back down on bipap as patient had significant desats this am but are better now. Guarded prognosis. Updated daughter this am. 07/11/20: Will attempt HFNC this afternoon. IF tolerates will allow patient to eat as well. Daughter wants to speak with her if possible. If she tolerates HFNC with eating then we will call her. Agree with D5W for insensible losses. Continue High dose steroids. Guarded prognosis. 07/10/20: Updated daughter this morning. Will hold on intubation as of right now. Will add scheduled haldol to see if this helps patient to relax and not fight the bipap mask. Really trying to avoid intubation given her COVID positive state and history of outcomes of ventilated patients. Will continue steroids at 60q6. Need to address nutrition soon. If intubated then will place NG/OG tube for supplementation. No further lasix as no improvement. Guarded prognosis. No current indication for ABG. Know that O2 will be marginal given requirements. Will cancel current order. 07/09/20: Continue steroids and Remdesivir. I increased steroids to 60q6 on yesterday. Continue NPO state and Continue bipap. Trying very had to not intubate but given lack of improvement and lack of nutrition, may have to electively do so in the next 12-24 hours. Will give a small dose of IV lasix today. Prognosis is very very guarded. Apparently is upstairs as well. 07/08/20: BNP was high normal, hold on lasix today. Continue steroids and remdesivir, may consider increasing steroids to BID. Continue bipap, NPO. Will give some ativan, very low dose PRN to see if this helps with work of breathing. Sinus ravindra is stable. Guarded prognosis. Doing everything to prevent extubation. 1. Will check bnP 2. Agree with steroids and remdesivir 3. Lasix 40mg IV x1 given today 4. Continue bipap for now, wean for sats >88% but wait a few hours until lasix is given. 5. PRone is possible 6. Guarded prognosis. If BNP elevated would need echo 7. Spoke with nursing about bradycardia, sinus on EKG, but if persistently low in 30's please repeat EKG Subjective Date of service: 07/13/20 Interval history: Still on bipap at 100%. Sats in the low 90's. Spoke with daughter and anesthesia this am and will electively intubate. Objective Vital Signs - 12hr 07/12/20 07/12/20 07/12/20 22:31 23:01 23:27 Temperature Pulse Rate 70 85 71 Pulse Rate [ From Monitor] Respiratory 19 12 17 Rate Blood Pressure 112/70 120/53 120/53 O2 Sat by Pulse 96 95 97 Oximetry 07/12/20 07/12/20 07/12/20 23:29 23:31 23:32 Temperature 97.4 F L Pulse Rate 71 70 Pulse Rate [ From Monitor] Respiratory 17 22 Rate Blood Pressure 120/53 120/53 O2 Sat by Pulse 97 96 Oximetry 07/12/20 07/13/20 07/13/20 23:51 00:00 00:01 Temperature Pulse Rate 84 85 85 Pulse Rate [ 79 From Monitor] Respiratory 13 16 22 Rate Blood Pressure 120/53 135/56 O2 Sat by Pulse 91 97 95 Oximetry 07/13/20 07/13/20 07/13/20 00:31 01:00 01:31 Temperature Pulse Rate 70 86 65 Pulse Rate [ From Monitor] Respiratory 17 23 19 Rate Blood Pressure 120/53 134/54 134/54 O2 Sat by Pulse 94 89 96 Oximetry 07/13/20 07/13/20 07/13/20 02:00 02:31 03:00 Temperature Pulse Rate 77 78 77 Pulse Rate [ From Monitor] Respiratory 19 23 21 Rate Blood Pressure 114/68 114/68 118/76 O2 Sat by Pulse 95 91 88 Oximetry 07/13/20 07/13/20 07/13/20 03:04 03:31 03:43 Temperature 98.4 F Pulse Rate 65 65 Pulse Rate [ From Monitor] Respiratory 17 20 Rate Blood Pressure 118/76 118/76 O2 Sat by Pulse 96 96 Oximetry 07/13/20 07/13/20 07/13/20 04:00 04:01 04:31 Temperature Pulse Rate 74 79 64 Pulse Rate [ 74 From Monitor] Respiratory 16 15 18 Rate Blood Pressure 104/59 118/76 O2 Sat by Pulse 97 94 96 Oximetry 07/13/20 07/13/20 07/13/20 05:00 05:31 06:00 Temperature Pulse Rate 82 85 66 Pulse Rate [ From Monitor] Respiratory 20 34 H 17 Rate Blood Pressure 110/86 104/59 106/48 O2 Sat by Pulse 93 90 94 Oximetry 07/13/20 07/13/20 07/13/20 06:31 07:00 07:01 Temperature 97.4 F L Pulse Rate 67 Pulse Rate [ From Monitor] Respiratory 23 25 H Rate Blood Pressure 106/48 85/50 O2 Sat by Pulse 95 100 Oximetry 07/13/20 07/13/20 07/13/20 07:31 08:00 08:31 Temperature Pulse Rate 64 63 Pulse Rate [ 68 From Monitor] Respiratory 19 19 Rate Blood Pressure 95/63 109/59 109/59 O2 Sat by Pulse 94 94 96 Oximetry 07/13/20 07/13/20 08:38 09:00 Temperature Pulse Rate 81 78 Pulse Rate [ From Monitor] Respiratory 34 H 24 Rate Blood Pressure 109/59 114/72 O2 Sat by Pulse 97 93 Oximetry Constitutional: no acute distress, alert, other (full face mask on for bipap therapy.) Eyes: non-icteric Neck: supple Ascultation: Bilateral: diminished breath sounds CBC and BMP: 07/13/20 04:39 07/13/20 04:39 ABG, PT/INR, D-dimer: ABG ABG pH 7.487 (7.320-7.450) H 07/08/20 02:39 POC ABG pCO2 32.8 mmHg (32.0-48.0) 07/08/20 02:39 POC ABG pO2 52.5 mmHg (83-108) L 07/08/20 02:39 POC ABG HCO3 24.3 07/08/20 02:39 PT/INR, D-dimer PT 14.7 Sec. (12.2-14.9) 07/06/20 08:50 INR 1.15 (0.87-1.13) H 07/06/20 08:50 D-Dimer 1786.87 ng/mlDDU (0-234) H 07/10/20 05:25 Abnormal lab findings: Abnormal Labs 07/06/20 07/06/20 07/06/20 08:50 08:50 08:50 WBC MCV 78 L MCH 26 L Lymph % (Auto) Lymph # (Auto) Seg Neutrophils % Seg Neuts % (Manual) 80.0 H Lymphocytes % (Manual) 10.0 L Nucleated RBC % 4.0 H Seg Neutrophils # Seg Neutrophils # Man Lymphocytes # (Manual) 0.9 L INR 1.15 H D-Dimer 1435.13 H ABG pH POC ABG pCO2 POC ABG pO2 ABG Hemoglobin ABG Oxyhemoglobin ABG Glucose Carboxyhemoglobin Sodium 136 L Chloride BUN 45 H Creatinine 1.6 H Glucose 385 H POC Glucose Hemoglobin A1c Lactic Acid Ferritin Alkaline Phosphatase 130 H Lactate Dehydrogenase Troponin T 0.034 H C-Reactive Protein Albumin 3.2 L Arterial Blood Glucose Coronavirus (PCR) 07/06/20 07/06/20 07/06/20 08:50 08:50 08:50 WBC MCV MCH Lymph % (Auto) Lymph # (Auto) Seg Neutrophils % Seg Neuts % (Manual) Lymphocytes % (Manual) Nucleated RBC % Seg Neutrophils # Seg Neutrophils # Man Lymphocytes # (Manual) INR D-Dimer ABG pH POC ABG pCO2 POC ABG pO2 ABG Hemoglobin ABG Oxyhemoglobin ABG Glucose Carboxyhemoglobin Sodium Chloride BUN Creatinine Glucose 385 H POC Glucose Hemoglobin A1c Lactic Acid 2.30 H* Ferritin 1158.0 H Alkaline Phosphatase Lactate Dehydrogenase 471 H Troponin T C-Reactive Protein 10.40 H Albumin Arterial Blood Glucose Coronavirus (PCR) 07/06/20 07/06/20 07/06/20 09:26 15:44 15:44 WBC MCV MCH Lymph % (Auto) Lymph # (Auto) Seg Neutrophils % Seg Neuts % (Manual) Lymphocytes % (Manual) Nucleated RBC % Seg Neutrophils # Seg Neutrophils # Man Lymphocytes # (Manual) INR D-Dimer ABG pH POC ABG pCO2 POC ABG pO2 ABG Hemoglobin ABG Oxyhemoglobin ABG Glucose Carboxyhemoglobin Sodium Chloride BUN Creatinine Glucose POC Glucose Hemoglobin A1c 11.8 H Lactic Acid 2.40 H* Ferritin Alkaline Phosphatase Lactate Dehydrogenase Troponin T C-Reactive Protein Albumin Arterial Blood Glucose Coronavirus (PCR) Positive A 07/06/20 07/06/20 07/06/20 15:44 17:40 20:35 WBC MCV MCH Lymph % (Auto) Lymph # (Auto) Seg Neutrophils % Seg Neuts % (Manual) Lymphocytes % (Manual) Nucleated RBC % Seg Neutrophils # Seg Neutrophils # Man Lymphocytes # (Manual) INR D-Dimer ABG pH 7.455 H POC ABG pCO2 30.9 L POC ABG pO2 50.0 L ABG Hemoglobin 11.1 L ABG Oxyhemoglobin 80.6 L ABG Glucose 357 H Carboxyhemoglobin 0.3 L Sodium Chloride BUN Creatinine Glucose POC Glucose 324 H Hemoglobin A1c Lactic Acid Ferritin Alkaline Phosphatase Lactate Dehydrogenase 683 H Troponin T C-Reactive Protein Albumin Arterial Blood Glucose 357 H Coronavirus (PCR) 07/06/20 07/06/20 07/07/20 21:49 23:52 02:19 WBC MCV MCH Lymph % (Auto) Lymph # (Auto) Seg Neutrophils % Seg Neuts % (Manual) Lymphocytes % (Manual) Nucleated RBC % Seg Neutrophils # Seg Neutrophils # Man Lymphocytes # (Manual) INR D-Dimer ABG pH 7.455 H POC ABG pCO2 31.9 L POC ABG pO2 50.7 L 62.0 L ABG Hemoglobin 10.8 L 10.8 L ABG Oxyhemoglobin 80.2 L 88.3 L ABG Glucose 358 H 330 H Carboxyhemoglobin 0.2 L 0.2 L Sodium Chloride BUN Creatinine Glucose POC Glucose 336 H Hemoglobin A1c Lactic Acid Ferritin Alkaline Phosphatase Lactate Dehydrogenase Troponin T C-Reactive Protein Albumin Arterial Blood Glucose 358 H 330 H Coronavirus (PCR) 07/07/20 07/07/20 07/07/20 02:42 02:42 07:54 WBC MCV MCH 26 L Lymph % (Auto) Lymph # (Auto) Seg Neutrophils % Seg Neuts % (Manual) 85.0 H Lymphocytes % (Manual) 6.0 L Nucleated RBC % Seg Neutrophils # Seg Neutrophils # Man 7.9 H Lymphocytes # (Manual) 0.6 L INR D-Dimer ABG pH POC ABG pCO2 POC ABG pO2 ABG Hemoglobin ABG Oxyhemoglobin ABG Glucose Carboxyhemoglobin Sodium Chloride BUN 47 H Creatinine 1.3 H Glucose 336 H POC Glucose 289 H Hemoglobin A1c Lactic Acid Ferritin Alkaline Phosphatase Lactate Dehydrogenase Troponin T C-Reactive Protein Albumin Arterial Blood Glucose Coronavirus (PCR) 07/07/20 07/07/20 07/07/20 11:07 15:40 23:27 WBC MCV MCH Lymph % (Auto) Lymph # (Auto) Seg Neutrophils % Seg Neuts % (Manual) Lymphocytes % (Manual) Nucleated RBC % Seg Neutrophils # Seg Neutrophils # Man Lymphocytes # (Manual) INR D-Dimer ABG pH POC ABG pCO2 POC ABG pO2 ABG Hemoglobin ABG Oxyhemoglobin ABG Glucose Carboxyhemoglobin Sodium Chloride BUN Creatinine Glucose POC Glucose 322 H 346 H 274 H Hemoglobin A1c Lactic Acid Ferritin Alkaline Phosphatase Lactate Dehydrogenase Troponin T C-Reactive Protein Albumin Arterial Blood Glucose Coronavirus (PCR) 07/08/20 07/08/20 07/08/20 02:39 05:07 05:07 WBC MCV MCH Lymph % (Auto) Lymph # (Auto) Seg Neutrophils % Seg Neuts % (Manual) Lymphocytes % (Manual) Nucleated RBC % Seg Neutrophils # Seg Neutrophils # Man Lymphocytes # (Manual) INR D-Dimer 2542.57 H ABG pH 7.487 H POC ABG pCO2 POC ABG pO2 52.5 L ABG Hemoglobin 11.8 L ABG Oxyhemoglobin ABG Glucose 336 H Carboxyhemoglobin Sodium Chloride BUN 51 H Creatinine Glucose 326 H POC Glucose Hemoglobin A1c Lactic Acid Ferritin Alkaline Phosphatase Lactate Dehydrogenase Troponin T C-Reactive Protein 4.30 H Albumin 3.2 L Arterial Blood Glucose 336 H Coronavirus (PCR) 07/08/20 07/08/20 07/08/20 05:07 05:07 05:21 WBC MCV MCH 25 L Lymph % (Auto) 7.9 L Lymph # (Auto) 0.6 L Seg Neutrophils % 85.6 H Seg Neuts % (Manual) Lymphocytes % (Manual) Nucleated RBC % Seg Neutrophils # Seg Neutrophils # Man Lymphocytes # (Manual) INR D-Dimer ABG pH POC ABG pCO2 POC ABG pO2 ABG Hemoglobin ABG Oxyhemoglobin ABG Glucose Carboxyhemoglobin Sodium Chloride BUN Creatinine Glucose POC Glucose 293 H Hemoglobin A1c Lactic Acid Ferritin 975.6 H Alkaline Phosphatase Lactate Dehydrogenase Troponin T C-Reactive Protein Albumin Arterial Blood Glucose Coronavirus (PCR) 07/08/20 07/08/20 07/08/20 08:59 11:39 17:57 WBC MCV MCH Lymph % (Auto) Lymph # (Auto) Seg Neutrophils % Seg Neuts % (Manual) Lymphocytes % (Manual) Nucleated RBC % Seg Neutrophils # Seg Neutrophils # Man Lymphocytes # (Manual) INR D-Dimer ABG pH POC ABG pCO2 POC ABG pO2 ABG Hemoglobin ABG Oxyhemoglobin ABG Glucose Carboxyhemoglobin Sodium Chloride BUN Creatinine Glucose POC Glucose 270 H 285 H 221 H Hemoglobin A1c Lactic Acid Ferritin Alkaline Phosphatase Lactate Dehydrogenase Troponin T C-Reactive Protein Albumin Arterial Blood Glucose Coronavirus (PCR) 07/08/20 07/08/20 07/09/20 21:26 23:29 05:29 WBC MCV MCH Lymph % (Auto) Lymph # (Auto) Seg Neutrophils % Seg Neuts % (Manual) Lymphocytes % (Manual) Nucleated RBC % Seg Neutrophils # Seg Neutrophils # Man Lymphocytes # (Manual) INR D-Dimer ABG pH POC ABG pCO2 POC ABG pO2 ABG Hemoglobin ABG Oxyhemoglobin ABG Glucose Carboxyhemoglobin Sodium Chloride BUN Creatinine Glucose POC Glucose 232 H 231 H 196 H Hemoglobin A1c Lactic Acid Ferritin Alkaline Phosphatase Lactate Dehydrogenase Troponin T C-Reactive Protein Albumin Arterial Blood Glucose Coronavirus (PCR) 07/09/20 07/09/20 07/09/20 06:51 06:51 12:10 WBC MCV MCH 26 L Lymph % (Auto) 4.3 L Lymph # (Auto) 0.4 L Seg Neutrophils % Seg Neuts % (Manual) Lymphocytes % (Manual) 1.0 L Nucleated RBC % Seg Neutrophils # 9.1 H Seg Neutrophils # Man 9.8 H Lymphocytes # (Manual) 0.1 L INR D-Dimer ABG pH POC ABG pCO2 POC ABG pO2 ABG Hemoglobin ABG Oxyhemoglobin ABG Glucose Carboxyhemoglobin Sodium 147 H Chloride 111.9 H BUN 52 H Creatinine Glucose 207 H POC Glucose 176 H Hemoglobin A1c Lactic Acid Ferritin Alkaline Phosphatase Lactate Dehydrogenase Troponin T C-Reactive Protein Albumin 3.2 L Arterial Blood Glucose Coronavirus (PCR) 07/09/20 07/09/20 07/10/20 17:49 23:36 05:17 WBC MCV MCH Lymph % (Auto) Lymph # (Auto) Seg Neutrophils % Seg Neuts % (Manual) Lymphocytes % (Manual) Nucleated RBC % Seg Neutrophils # Seg Neutrophils # Man Lymphocytes # (Manual) INR D-Dimer ABG pH POC ABG pCO2 POC ABG pO2 ABG Hemoglobin ABG Oxyhemoglobin ABG Glucose Carboxyhemoglobin Sodium Chloride BUN Creatinine Glucose POC Glucose 196 H 154 H 178 H Hemoglobin A1c Lactic Acid Ferritin Alkaline Phosphatase Lactate Dehydrogenase Troponin T C-Reactive Protein Albumin Arterial Blood Glucose Coronavirus (PCR) 07/10/20 07/10/20 07/10/20 05:25 05:25 05:25 WBC MCV MCH Lymph % (Auto) Lymph # (Auto) Seg Neutrophils % Seg Neuts % (Manual) Lymphocytes % (Manual) Nucleated RBC % Seg Neutrophils # Seg Neutrophils # Man Lymphocytes # (Manual) INR D-Dimer 1786.87 H ABG pH POC ABG pCO2 POC ABG pO2 ABG Hemoglobin ABG Oxyhemoglobin ABG Glucose Carboxyhemoglobin Sodium 152 H Chloride 112.8 H BUN 60 H Creatinine Glucose 204 H POC Glucose Hemoglobin A1c Lactic Acid Ferritin 920.8 H Alkaline Phosphatase Lactate Dehydrogenase Troponin T C-Reactive Protein 2.80 H Albumin 3.3 L Arterial Blood Glucose Coronavirus (PCR) 07/10/20 07/10/20 07/10/20 05:25 12:39 17:56 WBC MCV MCH 27 L Lymph % (Auto) Lymph # (Auto) Seg Neutrophils % Seg Neuts % (Manual) 92.0 H Lymphocytes % (Manual) 3.0 L Nucleated RBC % Seg Neutrophils # Seg Neutrophils # Man 9.5 H Lymphocytes # (Manual) 0.3 L INR D-Dimer ABG pH POC ABG pCO2 POC ABG pO2 ABG Hemoglobin ABG Oxyhemoglobin ABG Glucose Carboxyhemoglobin Sodium Chloride BUN Creatinine Glucose POC Glucose 174 H 177 H Hemoglobin A1c Lactic Acid Ferritin Alkaline Phosphatase Lactate Dehydrogenase Troponin T C-Reactive Protein Albumin Arterial Blood Glucose Coronavirus (PCR) 07/10/20 07/11/20 07/11/20 23:13 05:20 06:08 WBC MCV MCH Lymph % (Auto) Lymph # (Auto) Seg Neutrophils % Seg Neuts % (Manual) Lymphocytes % (Manual) Nucleated RBC % Seg Neutrophils # Seg Neutrophils # Man Lymphocytes # (Manual) INR D-Dimer ABG pH POC ABG pCO2 POC ABG pO2 ABG Hemoglobin ABG Oxyhemoglobin ABG Glucose Carboxyhemoglobin Sodium 159 H Chloride 120.9 H BUN 57 H Creatinine Glucose 162 H POC Glucose 107 H 129 H Hemoglobin A1c Lactic Acid Ferritin Alkaline Phosphatase Lactate Dehydrogenase Troponin T C-Reactive Protein Albumin 3.0 L Arterial Blood Glucose Coronavirus (PCR) 07/11/20 07/11/20 07/11/20 12:08 17:21 23:20 WBC MCV MCH Lymph % (Auto) Lymph # (Auto) Seg Neutrophils % Seg Neuts % (Manual) Lymphocytes % (Manual) Nucleated RBC % Seg Neutrophils # Seg Neutrophils # Man Lymphocytes # (Manual) INR D-Dimer ABG pH POC ABG pCO2 POC ABG pO2 ABG Hemoglobin ABG Oxyhemoglobin ABG Glucose Carboxyhemoglobin Sodium Chloride BUN Creatinine Glucose POC Glucose 238 H 240 H 176 H Hemoglobin A1c Lactic Acid Ferritin Alkaline Phosphatase Lactate Dehydrogenase Troponin T C-Reactive Protein Albumin Arterial Blood Glucose Coronavirus (PCR) 07/12/20 07/12/20 07/12/20 01:55 05:16 05:18 WBC 12.6 H MCV MCH 26 L Lymph % (Auto) Lymph # (Auto) Seg Neutrophils % Seg Neuts % (Manual) 93.0 H Lymphocytes % (Manual) 4.0 L Nucleated RBC % Seg Neutrophils # Seg Neutrophils # Man 11.7 H Lymphocytes # (Manual) 0.5 L INR D-Dimer ABG pH POC ABG pCO2 POC ABG pO2 ABG Hemoglobin ABG Oxyhemoglobin ABG Glucose Carboxyhemoglobin Sodium 151 H D Chloride 115.5 H BUN 52 H Creatinine Glucose 250 H POC Glucose 202 H Hemoglobin A1c Lactic Acid Ferritin Alkaline Phosphatase Lactate Dehydrogenase Troponin T C-Reactive Protein Albumin Arterial Blood Glucose Coronavirus (PCR) 07/12/20 07/12/20 07/12/20 05:18 11:50 17:25 WBC MCV MCH Lymph % (Auto) Lymph # (Auto) Seg Neutrophils % Seg Neuts % (Manual) Lymphocytes % (Manual) Nucleated RBC % Seg Neutrophils # Seg Neutrophils # Man Lymphocytes # (Manual) INR D-Dimer ABG pH POC ABG pCO2 POC ABG pO2 ABG Hemoglobin ABG Oxyhemoglobin ABG Glucose Carboxyhemoglobin Sodium 152 H Chloride 113.7 H BUN 50 H Creatinine Glucose 232 H POC Glucose 218 H 130 H Hemoglobin A1c Lactic Acid Ferritin Alkaline Phosphatase Lactate Dehydrogenase Troponin T C-Reactive Protein Albumin Arterial Blood Glucose Coronavirus (PCR) 07/12/20 07/13/20 07/13/20 23:17 04:39 04:39 WBC MCV MCH 26 L Lymph % (Auto) Lymph # (Auto) Seg Neutrophils % Seg Neuts % (Manual) Lymphocytes % (Manual) Nucleated RBC % Seg Neutrophils # Seg Neutrophils # Man Lymphocytes # (Manual) INR D-Dimer ABG pH POC ABG pCO2 POC ABG pO2 ABG Hemoglobin ABG Oxyhemoglobin ABG Glucose Carboxyhemoglobin Sodium Chloride 109.4 H BUN 44 H Creatinine Glucose 281 H POC Glucose 161 H Hemoglobin A1c Lactic Acid Ferritin Alkaline Phosphatase Lactate Dehydrogenase Troponin T C-Reactive Protein Albumin Arterial Blood Glucose Coronavirus (PCR) 07/13/20 05:16 WBC MCV MCH Lymph % (Auto) Lymph # (Auto) Seg Neutrophils % Seg Neuts % (Manual) Lymphocytes % (Manual) Nucleated RBC % Seg Neutrophils # Seg Neutrophils # Man Lymphocytes # (Manual) INR D-Dimer ABG pH POC ABG pCO2 POC ABG pO2 ABG Hemoglobin ABG Oxyhemoglobin ABG Glucose Carboxyhemoglobin Sodium Chloride BUN Creatinine Glucose POC Glucose 210 H Hemoglobin A1c Lactic Acid Ferritin Alkaline Phosphatase Lactate Dehydrogenase Troponin T C-Reactive Protein Albumin Arterial Blood Glucose Coronavirus (PCR)
[2020-07-13] MEDS ORDERED: fentaNYL 100 MCG/2 ML INJ IV PRN (10:23)
[2020-07-13] MEDS ORDERED: MINERAL OIL/PETROLATUM, WHITE OPHTH OINT 3.5 GM OU PRN ×2 (10:23→10:46)
[2020-07-13] MEDS ORDERED: LIP THERAPY VASELINE TP PRN ×2 (10:23→10:46)
[2020-07-13] MEDS ORDERED: SUCCINYLCHOLINE CHLORIDE 200 MG/10 ML INJ MDV ONE (10:38)
[2020-07-13] MEDS ORDERED: propofoL 200 MG/20 ML VIAL IV ONE ×2 (10:38→12:00)
[2020-07-13] MEDS ORDERED: MIDAZOLAM 2 MG/2 ML INJ ONE (11:04)
--- NOTE | 2020-07-13 11:26 | Event Note ---
Date: 07/13/20 Extremely difficult airway, grade IV view. Very thick neck with swelling. Already on steroids. Tube passed on 4th attempt with the help of 3 people. Patient will likely need bilateral chest tubes placed for PTX's. Will speak with surgery. Guarded prognosis.
--- NOTE | 2020-07-13 11:29 | Event Note ---
Date: 07/13/20 Tube was right mainstemmed. Bilateral PTX's Placed consult to [employer] worker helper surgery for chest tube placement. Will need surgical tubes given time on vent and need for increase airway pressures.
[2020-07-13] MEDS: fentaNYL DRIP Premix 2,000 MCG/100 ML BAG IV SCH ×2 (11:36→20:38)
[2020-07-13] MEDS ORDERED: SIMPLE SYRUP 15 ML FEEDTUBE PRN ×2 (11:45)
[2020-07-13] MEDS ORDERED: LIPASE 10,500/PROTEASE 25,000/AMYLASE 43,750 (UNITS) DR CAP FEEDTUBE PRN (11:45)
[2020-07-13] MEDS ORDERED: SODIUM BICARBONATE 325 MG TAB FEEDTUBE PRN (11:45)
--- NOTE | 2020-07-13 11:47 | XRay Report ---
CHEST 1 VIEW 07/13/2020 8:55 AM INDICATION / CLINICAL INFORMATION: respiratory failure. COMPARISON: 07/09/2020 FINDINGS: SUPPORT DEVICES: None. HEART / MEDIASTINUM: No significant abnormality. LUNGS / PLEURA: Diffuse bilateral pulmonary opacities. There are bilateral pneumothoraces with right measuring 1.1 cm in left 1.0 cm. Diffuse opacities in bilateral lungs. ADDITIONAL FINDINGS: No significant additional findings. IMPRESSION: Bilateral pneumothoraces with bilateral diffuse pulmonary opacities. Pneumothoraces increased in size since prior exam. Multiple attempts to notify and nursing staff on the floor. Dr Harrison also attempting to n otify staff. Message left with Dr Lauren office after repeated attempts. Signer Name: Fer Chase MD Signed: 07/13/2020 10:12 AM Workstation Name: [id number]
--- NOTE | 2020-07-13 11:48 | XRay Report ---
CHEST 1 VIEW 07/13/2020 11:05 AM INDICATION / CLINICAL INFORMATION: ETT placement. COMPARISON: Chest one view from earlier today. FINDINGS: SUPPORT DEVICES: Interval ET tube placement with the tip located over the origin of the right main br onchus. HEART / MEDIASTINUM: Stable. LUNGS / PLEURA: Increased bilateral airspace opacities. No significant pleural effusion. Slightly sma ller right pneumothorax. ADDITIONAL FINDINGS: No significant additional findings. IMPRESSION: 1. Interval intubation with ET tube as above. Retraction of the tube by 3 cm is recommended. 2. Increased bilateral airspace opacities. 3. Slightly smaller right pneumothorax. Signer Name: Lance Finley MD Signed: 07/13/2020 11:37 AM Workstation Name: [id number]
[2020-07-13] MEDS ORDERED: SUCCINYLCHOLINE CHLORIDE 200 MG/10 ML INJ MDV IV ONE (12:00)
[2020-07-13] MEDS ORDERED: fentaNYL 100 MCG/2 ML INJ IV ONE (12:00)
[2020-07-13] MEDS ORDERED: MIDAZOLAM 2 MG/2 ML INJ IV ONE (12:00)
--- NOTE | 2020-07-13 12:25 | Progress Note ---
<LENA YORK - Last Filed: 07/13/20 11:32> Subjective Date of service: 07/13/20 Interval history: Called to intubate patient in respiratory distress in ICU. On arrival at about 1120am, patient was on Bipap with oxygen saturation at 86% and BP 129/86. She was sedated with Inj. Propofol 100mg and Anectine 100mg. Oxygen saturation was optimized to 90% and on opening the mouth, the entire cavity was inflamed and filled with dry substance that hindered visualization hence making difficult the identification of airway structures. The initial attempt with Mc 4 blade failed with patient being very anterior. The oxygenation was once again optimized and another dose of Inj. Propofol 100mg and Inj. Anectine 100mg administered IV. With the use of a size 3 Glidescope blade, a size 7.5 ETT was successfully placed, and in attendance were the senior tech manufacturing engineering and two respiratory therapists. A post intubation chest x-ray revealed a right main stem placement, which was instantly corrected, alongside a bilateral pneumothorax. Bilateral chest-tube insertion was recommended by the senior tech manufacturing engineering who made a arrangements for general surgery consult. Objective - Constitutional Vitals: Vital Signs - 12hr 07/12/20 07/13/20 07/13/20 23:51 00:00 00:01 Temperature Pulse Rate 84 85 85 Pulse Rate [ 79 From Monitor] Respiratory 13 16 22 Rate Blood Pressure 120/53 135/56 O2 Sat by Pulse 91 97 95 Oximetry 07/13/20 07/13/20 07/13/20 00:31 01:00 01:31 Temperature Pulse Rate 70 86 65 Pulse Rate [ From Monitor] Respiratory 17 23 19 Rate Blood Pressure 120/53 134/54 134/54 O2 Sat by Pulse 94 89 96 Oximetry 07/13/20 07/13/20 07/13/20 02:00 02:31 03:00 Temperature Pulse Rate 77 78 77 Pulse Rate [ From Monitor] Respiratory 19 23 21 Rate Blood Pressure 114/68 114/68 118/76 O2 Sat by Pulse 95 91 88 Oximetry 07/13/20 07/13/20 07/13/20 03:04 03:31 03:43 Temperature 98.4 F Pulse Rate 65 65 Pulse Rate [ From Monitor] Respiratory 17 20 Rate Blood Pressure 118/76 118/76 O2 Sat by Pulse 96 96 Oximetry 07/13/20 07/13/20 07/13/20 04:00 04:01 04:31 Temperature Pulse Rate 74 79 64 Pulse Rate [ 74 From Monitor] Respiratory 16 15 18 Rate Blood Pressure 104/59 118/76 O2 Sat by Pulse 97 94 96 Oximetry 07/13/20 07/13/20 07/13/20 05:00 05:31 06:00 Temperature Pulse Rate 82 85 66 Pulse Rate [ From Monitor] Respiratory 20 34 H 17 Rate Blood Pressure 110/86 104/59 106/48 O2 Sat by Pulse 93 90 94 Oximetry 07/13/20 07/13/20 07/13/20 06:31 07:00 07:01 Temperature 97.4 F L Pulse Rate 67 Pulse Rate [ From Monitor] Respiratory 23 25 H Rate Blood Pressure 106/48 85/50 O2 Sat by Pulse 95 100 Oximetry 07/13/20 07/13/20 07/13/20 07:31 08:00 08:31 Temperature Pulse Rate 64 63 Pulse Rate [ 68 From Monitor] Respiratory 19 19 Rate Blood Pressure 95/63 109/59 109/59 O2 Sat by Pulse 94 94 96 Oximetry 07/13/20 07/13/20 07/13/20 08:38 09:00 09:31 Temperature Pulse Rate 81 78 69 Pulse Rate [ From Monitor] Respiratory 34 H 24 20 Rate Blood Pressure 109/59 114/72 114/72 O2 Sat by Pulse 97 93 88 Oximetry 07/13/20 10:01 Temperature Pulse Rate 84 Pulse Rate [ From Monitor] Respiratory 20 Rate Blood Pressure 129/63 O2 Sat by Pulse 84 Oximetry - Labs CBC & Chem 7: 07/13/20 04:39 07/13/20 04:39 Labs: Abnormal lab results 07/12/20 07/12/20 07/12/20 Range/Units 11:50 17:25 23:17 MCH (28-32) pg Chloride (98-107) mmol/L BUN (7-17) mg/dL Glucose (65-100) mg/dL POC Glucose 218 H 130 H 161 H (70-105) mg/dL 07/13/20 07/13/20 07/13/20 Range/Units 04:39 04:39 05:16 MCH 26 L (28-32) pg Chloride 109.4 H (98-107) mmol/L BUN 44 H (7-17) mg/dL Glucose 281 H (65-100) mg/dL POC Glucose 210 H (70-105) mg/dL <CORWIN VALENTIN - Last Filed: 07/13/20 12:57> Objective - Constitutional Vitals: Vital Signs - 12hr 07/13/20 07/13/20 07/13/20 01:00 01:31 02:00 Temperature Pulse Rate 86 65 77 Pulse Rate [ From Monitor] Respiratory 23 19 19 Rate Blood Pressure 134/54 134/54 114/68 O2 Sat by Pulse 89 96 95 Oximetry 07/13/20 07/13/20 07/13/20 02:31 03:00 03:04 Temperature 98.4 F Pulse Rate 78 77 Pulse Rate [ From Monitor] Respiratory 23 21 Rate Blood Pressure 114/68 118/76 O2 Sat by Pulse 91 88 Oximetry 07/13/20 07/13/20 07/13/20 03:31 03:43 04:00 Temperature Pulse Rate 65 65 74 Pulse Rate [ 74 From Monitor] Respiratory 17 20 16 Rate Blood Pressure 118/76 118/76 O2 Sat by Pulse 96 96 97 Oximetry 07/13/20 07/13/20 07/13/20 04:01 04:31 05:00 Temperature Pulse Rate 79 64 82 Pulse Rate [ From Monitor] Respiratory 15 18 20 Rate Blood Pressure 104/59 118/76 110/86 O2 Sat by Pulse 94 96 93 Oximetry 07/13/20 07/13/20 07/13/20 05:31 06:00 06:31 Temperature Pulse Rate 85 66 67 Pulse Rate [ From Monitor] Respiratory 34 H 17 23 Rate Blood Pressure 104/59 106/48 106/48 O2 Sat by Pulse 90 94 95 Oximetry 07/13/20 07/13/20 07/13/20 07:00 07:01 07:31 Temperature 97.4 F L Pulse Rate 64 Pulse Rate [ From Monitor] Respiratory 25 H 19 Rate Blood Pressure 85/50 95/63 O2 Sat by Pulse 100 94 Oximetry 07/13/20 07/13/20 07/13/20 08:00 08:31 08:38 Temperature Pulse Rate 63 81 Pulse Rate [ 68 From Monitor] Respiratory 19 34 H Rate Blood Pressure 109/59 109/59 109/59 O2 Sat by Pulse 94 96 97 Oximetry 07/13/20 07/13/20 07/13/20 09:00 09:31 10:01 Temperature Pulse Rate 78 69 84 Pulse Rate [ From Monitor] Respiratory 24 20 20 Rate Blood Pressure 114/72 114/72 129/63 O2 Sat by Pulse 93 88 84 Oximetry 07/13/20 07/13/20 07/13/20 10:31 11:00 11:31 Temperature Pulse Rate 86 81 70 Pulse Rate [ From Monitor] Respiratory 43 H 41 H 29 H Rate Blood Pressure 129/63 100/47 94/56 O2 Sat by Pulse 84 81 L 92 Oximetry 07/13/20 07/13/20 12:00 12:02 Temperature 98.1 F Pulse Rate 69 93 H Pulse Rate [ 69 From Monitor] Respiratory 20 Rate Blood Pressure 109/66 94/65 O2 Sat by Pulse 90 93 Oximetry - Labs CBC & Chem 7: 07/13/20 04:39 07/13/20 04:39 Labs: Abnormal lab results 07/12/20 07/12/20 07/13/20 Range/Units 17:25 23:17 04:39 MCH (28-32) pg Chloride 109.4 H (98-107) mmol/L BUN 44 H (7-17) mg/dL Glucose 281 H (65-100) mg/dL POC Glucose 130 H 161 H (70-105) mg/dL 07/13/20 07/13/20 Range/Units 04:39 05:16 MCH 26 L (28-32) pg Chloride (98-107) mmol/L BUN (7-17) mg/dL Glucose (65-100) mg/dL POC Glucose 210 H (70-105) mg/dL
--- NOTE | 2020-07-13 12:38 | Progress Note ---
Assessment and Plan Assessment and plan: Sepsis -Presented with hypoxia, tachypnea and acute hypoxic respiratory failure, acute kidney injury, pneumonia on CXR and COVID-19 infection -07/06 blood cultures x2 no growth to date -s/p Antibiotic therapy -Infectious disease consulted, appreciate recommendations -Stress test steroids COVID-19 infection -07/06 CXR shows diffuse hazy bilateral lung opacities concerning for viral infection, atypical pneumonia or pulmonary edema with no pleural effusions or pneumothorax -07/06 COVID-19 PCR positive -07/05 COVID-19 PCR at outside facility positive -Infectious disease and pulmonology consulted, appreciate recommendations -Contact/droplet isolation -Pulmonary hygiene -Supplemental oxygen as needed -S/p antibiotic therapy -07/07-07/12 s/p remdesivir therapy -S/p steroid therapy for COVID-19 infection -OOB 3 times daily -Prone to sleep as needed -Anticoagulation per protocol -Vitamin C, vitamin D and zinc -SPO2 monitoring Bilateral pneumonia -07/06 CXR shows diffuse hazy bilateral lung opacities concerning for viral infection, atypical pneumonia or pulmonary edema with no pleural effusions or pneumothorax -Secondary to COVID-19 infection -s/p Antibiotic therapy -Infectious disease consulted, appreciate recommendation -07/06 blood cultures x2 no growth to date Acute hypoxic respiratory failure -Room air SPO2 75% and placed on high flow nasal cannula -Pulmonary consulted, patient recommendations -Steroid therapy -Supplemental oxygen as needed -Pulmonary hygiene -SPO2 monitoring -07/13 patient was electively intubated Bilateral pneumothorax -Evidenced on CXR -General surgery consulted for placement of bilateral chest tubes Hyperchloremia -07/09 chloride 111 which trended up to 120 -Trend BMP Elevated D-dimer -Admit D-dimer 1435 -07/06 nuclear medicine perfusion study shows low probability of pulmonary embolism -07/06 bilateral lower extremity Doppler ultrasound negative for DVT/SVT Elevated troponin/SB -Presented with a troponin of 0.034 -07/06 troponin less than 0.10 -Cardiology consulted, appreciate recommendations -EKG as needed -No complaints of chest pain -Cardiology believes elevated troponin is in setting of acute kidney injury Hypertension -Titrate Antihypertensives as needed -Hydralazine as needed for SBP greater than 160 -Blood pressure monitoring per protocol Diabetes mellitus -07/06 hemoglobin A1c 11.8 -SSI -CC cardiac diet -Accu-Cheks AC at bedtime -Hypoglycemia protocol -07/06 70/30 initiated, titrate as needed DVT prophylaxis -Heparin subcu -GI prophylaxis -SCDs to bilateral lower extremities while in bed Leukocytosis, resolved -07/12 WBC 12.6 -07/13 WBC 8 -Patient is on steroid therapy -Trend CBC Hypernatremia, resolved -07/09 sodium 147 which trended up to 159 -07/13 sodium 142 -S/P D5 W -Trend BMP Acute kidney injury, resolved -12/2016 creatinine/BUN 0.9/15 -Presented with a creatinine/BUN 1.6/45 -Trend BMP -Consider nephrology consult if not improving -07/13 BUN/creatinine 44/0.9 -Secondary to vasomotor nephropathy Lactic acidosis, resolved -Presented with a lactic acid of 2.3 -Trend lactic acid -07/07 LA 1.6 History Interval history: This is a 69-year-old Laotian female with limited [place]an with hypertension, diabetes mellitus, hyperlipidemia who presented to the hospital on 07/06 via EMS with worsening subjective fevers, headache, body ache, dry cough, dyspnea on exertion, fatigue, headache and nausea since the last week end of May. Patient had a positive COVID-19 PCR on 07/05 as outside facility. Upon arrival to the emergency department patient was hypoxic on room air at 75% and tachypneic. Work-up in the emergency department with a CXR which showed bilateral pneumonia, lactic acidosis at 2.3, acute kidney injury at 1.6/45, elevated D-dimer, elevated troponin and slight hyponatremia 136. Patient received Rocephin, azithromycin and Decadron in the emergency department. Patient was admitted to the hospitalist service as a COVID-19 PUI, acute kidney injury, sepsis, lactic acidosis, and elevated D-dimer with consults to pulmonology and infectious disease. 07/06: COVID-19 PCR positive, azithromycin and Rocephin, Decadron and remdesivir therapy 07/07: Patient is on 100% FiO2 BiPAP therapy with SPO2 in the low 90s and high 80s, hypoxia and ABG, sinus bradycardia noted overnight. Repeat CXR shows persistent diffuse pulmonary process and pulmonary edema therefore she received 40 mg of Lasix x1 and a proBNP is pending per [facility] 07/08: Patient remains on antibiotic therapy, kidney function tests have not worsened, sinus bradycardia still persist and steroid dosing was increased today by [facility]. Patient's daughter was updated today 07/09: Overnight it was noted that the patient developed bilateral small pneumothorax on AM CXR. She still remains on 100% FiO2 via Bipap and her ABG shows hypoxia. Her steroid therapy was changed per [facility] and she received lasix x1 today. 07/10: Still remains hypoxic on BiPAP. Labs reviewed-sodium 152 today. Hold off on IV fluids for today due to ongoing respiratory difficulty. Trend sodium for now and if elevated tomorrow we will start on hypotonic solution. Possible intubation in the next 24 hours if no improvement in respiratory status. Critical care on board 07/11. Her oxygen sats remains stable. Plan to switch to HFNC to see if she tolerated. Started on D5W due to worsening hyponatremia and lethargy. BMP q6 hr ordered 07/12: Patient remains on BiPAP as she was unable to maintain her oxygenation on HFNC, remains hypernatremic and hyperchloremic although improving. 07/13: CXR from this a.m. showed increase in bilateral pneumothorax size, patient was electively intubated and placed on mechanical ventilation. Surgery was consulted for placement of bilateral chest tubes. Patient's hypernatremia, leukocytosis, hyperchloremia has improved. NG tube placed and nutrition consulted. She remains hyperglycemic and her insulin dose was adjusted. Hospitalist Physical - Constitutional Vitals: Temp Pulse Resp BP Pulse Ox 98.1 F 93 H 20 94/65 93 07/13/20 12:00 07/13/20 12:02 07/13/20 12:00 07/13/20 12:02 07/13/20 12:02 General appearance: Present: mild distress, obese - EENT Eyes: Present: PERRL, EOM intact ENT: clear oral mucosa - Neck Neck: Present: normal ROM - Respiratory Respiratory effort: normal Respiratory: bilateral: diminished - Cardiovascular Rhythm: regular Heart Sounds: Present: S1 & S2. Absent: systolic murmur, diastolic murmur - Extremities Extremities: no ischemia, pulses intact, pulses symmetrical, No edema, normal temperature, normal color, Full ROM Peripheral Pulses: within normal limits - Abdominal General gastrointestinal: soft, non-tender, non-distended, normal bowel sounds - Integumentary Integumentary: Present: clear, warm, dry - Psychiatric Psychiatric: cooperative - Neurologic Neurologic: CNII-XII intact, no focal deficits, moves all extremities - Allied Health Allied health notes reviewed: nursing, RT HEART Score - HEART Score Troponin: Troponin T < 0.010 ng/mL (0.00-0.029) 07/07/20 00:22 Results - Labs CBC & Chem 7: 07/13/20 04:39 07/13/20 04:39 Labs: Laboratory Last Values WBC 8.5 K/mm3 (4.5-11.0) 07/13/20 04:39 RBC 4.05 M/mm3 (3.65-5.03) 07/13/20 04:39 Hgb 10.5 gm/dl (10.1-14.3) 07/13/20 04:39 Hct 32.7 % (30.3-42.9) 07/13/20 04:39 MCV 81 fl (79-97) 07/13/20 04:39 MCH 26 pg (28-32) L 07/13/20 04:39 MCHC 32 % (30-34) 07/13/20 04:39 RDW 14.7 % (13.2-15.2) 07/13/20 04:39 Plt Count 141 K/mm3 (140-440) 07/13/20 04:39 Lymph % (Auto) 4.3 % (13.4-35.0) L 07/09/20 06:51 [place] % (Auto) 3.6 % (0.0-7.3) 07/09/20 06:51 Eos % (Auto) 0.6 % (0.0-4.3) 07/09/20 06:51 Baso % (Auto) 0.3 % (0.0-1.8) 07/09/20 06:51 Lymph # (Auto) 0.4 K/mm3 (1.2-5.4) L 07/09/20 06:51 [place] # (Auto) 0.4 K/mm3 (0.0-0.8) 07/09/20 06:51 Eos # (Auto) 0.1 K/mm3 (0.0-0.4) 07/09/20 06:51 Baso # (Auto) 0.0 K/mm3 (0.0-0.1) 07/09/20 06:51 Add Manual Diff Complete 07/12/20 05:18 Total Counted 100 07/12/20 05:18 Seg Neutrophils % Advertising Sales Agent 07/12/20 05:18 Seg Neuts % (Manual) 93.0 % (40.0-70.0) H 07/12/20 05:18 Band Neutrophils % 4.0 % 07/07/20 02:42 Lymphocytes % (Manual) 4.0 % (13.4-35.0) L 07/12/20 05:18 Monocytes % (Manual) 3.0 % (0.0-7.3) 07/12/20 05:18 Metamyelocytes % 1.0 % 07/10/20 05:25 Nucleated RBC % Not Reportable 07/12/20 05:18 Seg Neutrophils # 9.1 K/mm3 (1.8-7.7) H 07/09/20 06:51 Seg Neutrophils # Man 11.7 K/mm3 (1.8-7.7) H 07/12/20 05:18 Band Neutrophils # 0.0 K/mm3 07/12/20 05:18 Lymphocytes # (Manual) 0.5 K/mm3 (1.2-5.4) L 07/12/20 05:18 Abs React Lymphs (Man) 0.0 K/mm3 07/12/20 05:18 Monocytes # (Manual) 0.4 K/mm3 (0.0-0.8) 07/12/20 05:18 Eosinophils # (Manual) 0.0 K/mm3 (0.0-0.4) 07/12/20 05:18 Basophils # (Manual) 0.0 K/mm3 (0.0-0.1) 07/12/20 05:18 Metamyelocytes # 0.0 K/mm3 07/12/20 05:18 Myelocytes # 0.0 K/mm3 07/12/20 05:18 Promyelocytes # 0.0 K/mm3 07/12/20 05:18 Blast Cells # 0.0 K/mm3 07/12/20 05:18 WBC Morphology Not Reportable 07/12/20 05:18 Hypersegmented Neuts Not Reportable 07/12/20 05:18 Hyposegmented Neuts Not Reportable 07/12/20 05:18 Hypogranular Neuts Not Reportable 07/12/20 05:18 Smudge Cells Not Reportable 07/12/20 05:18 Toxic Granulation Not Reportable 07/12/20 05:18 Toxic Vacuolation Not Reportable 07/12/20 05:18 Dohle Bodies Not Reportable 07/12/20 05:18 Pelger-Huet Anomaly Not Reportable 07/12/20 05:18 Rudy Rods Not Reportable 07/12/20 05:18 Platelet Estimate Consistent w auto 07/12/20 05:18 Clumped Platelets Not Reportable 07/12/20 05:18 Plt Clumps, EDTA Not Reportable 07/12/20 05:18 Large Platelets Not Reportable 07/12/20 05:18 Giant Platelets Not Reportable 07/12/20 05:18 Platelet Satelliting Not Reportable 07/12/20 05:18 Plt Morphology Comment Not Reportable 07/12/20 05:18 RBC Morphology Not Reportable 07/12/20 05:18 Dimorphic RBCs Not Reportable 07/12/20 05:18 Polychromasia Not Reportable 07/12/20 05:18 Hypochromasia Not Reportable 07/12/20 05:18 Poikilocytosis Not Reportable 07/12/20 05:18 Anisocytosis 1+ 07/12/20 05:18 Microcytosis Not Reportable 07/12/20 05:18 Macrocytosis Not Reportable 07/12/20 05:18 Spherocytes Not Reportable 07/12/20 05:18 Pappenheimer Bodies Not Reportable 07/12/20 05:18 Sickle Cells Not Reportable 07/12/20 05:18 Target Cells Not Reportable 07/12/20 05:18 Tear Drop Cells Not Reportable 07/12/20 05:18 Ovalocytes Not Reportable 07/12/20 05:18 Helmet Cells Not Reportable 07/12/20 05:18 [place] Bodies Not Reportable 07/12/20 05:18 [place] Rings Not Reportable 07/12/20 05:18 Eliane Cells Not Reportable 07/12/20 05:18 Bite Cells Not Reportable 07/12/20 05:18 Crenated Cell Not Reportable 07/12/20 05:18 Elliptocytes Not Reportable 07/12/20 05:18 Acanthocytes (Spur) Not Reportable 07/12/20 05:18 Rouleaux Not Reportable 07/12/20 05:18 Hemoglobin C Crystals Not Reportable 07/12/20 05:18 Schistocytes Not Reportable 07/12/20 05:18 Malaria parasites Not Reportable 07/12/20 05:18 Shreyas Bodies Not Reportable 07/12/20 05:18 Hem Pathologist Commnt No 07/12/20 05:18 PT 14.7 Sec. (12.2-14.9) 07/06/20 08:50 INR 1.15 (0.87-1.13) H 07/06/20 08:50 APTT 25.9 Sec. (24.2-36.6) 07/06/20 08:50 D-Dimer 1786.87 ng/mlDDU (0-234) H 07/10/20 05:25 ABG pH 7.487 (7.320-7.450) H 07/08/20 02:39 POC ABG pCO2 32.8 mmHg (32.0-48.0) 07/08/20 02:39 POC ABG pO2 52.5 mmHg (83-108) L 07/08/20 02:39 POC ABG HCO3 24.3 07/08/20 02:39 POC ABG Base Excess 1.3 07/08/20 02:39 ABG Hemoglobin 11.8 (12.0-17.5) L 07/08/20 02:39 ABG Oxyhemoglobin 88.3 (94-98) L 07/07/20 02:19 ABG Methemoglobin 0.3 (0.0-1.5) 07/07/20 02:19 ABG Sodium 137.3 mmol/L (136.0-145.0) 07/08/20 02:39 ABG Potassium 4.3 mmol/L (3.40-4.50) 07/08/20 02:39 ABG Chloride 105.0 mmol/L (98-107) 07/08/20 02:39 ABG Glucose 336 mg/dL (65-95) H 07/08/20 02:39 Carboxyhemoglobin 0.2 (0.5-1.5) L 07/07/20 02:19 FiO2 100 07/08/20 02:39 Sodium 142 mmol/L (137-145) D 07/13/20 04:39 Potassium 4.1 mmol/L (3.6-5.0) 07/13/20 04:39 Chloride 109.4 mmol/L (98-107) H 07/13/20 04:39 Carbon Dioxide 24 mmol/L (22-30) 07/13/20 04:39 Anion Gap 13 mmol/L 07/13/20 04:39 BUN 44 mg/dL (7-17) H 07/13/20 04:39 Creatinine 0.9 mg/dL (0.6-1.2) 07/13/20 04:39 Estimated GFR > 60 ml/min 07/13/20 04:39 BUN/Creatinine Ratio 49 % 07/13/20 04:39 Glucose 281 mg/dL (65-100) H 07/13/20 04:39 POC Glucose 210 mg/dL (70-105) H 07/13/20 05:16 Hemoglobin A1c 11.8 % (4-6) H 07/06/20 15:44 Lactic Acid 1.60 mmol/L (0.7-2.0) 07/07/20 08:55 Calcium 8.5 mg/dL (8.4-10.2) 07/13/20 04:39 Ferritin 920.8 ng/mL (10.0-200.0) H 07/10/20 05:25 Total Bilirubin 1.00 mg/dL (0.1-1.2) 07/11/20 06:08 AST 38 units/L (5-40) 07/11/20 06:08 ALT 24 units/L (7-56) 07/11/20 06:08 Alkaline Phosphatase 107 units/L (35-129) 07/11/20 06:08 Lactate Dehydrogenase 683 units/L (91-180) H 07/06/20 15:44 Total Creatine Kinase 47 units/L (30-135) 07/07/20 00:22 CK-MB (CK-2) 1.6 ng/mL (0.0-4.0) 07/07/20 00:22 CK-MB (CK-2) Rel Index 3.4 (0-4) 07/07/20 00:22 Troponin T < 0.010 ng/mL (0.00-0.029) 07/07/20 00:22 C-Reactive Protein 2.80 mg/dL (0.00-1.30) H 07/10/20 05:25 NT-Pro-B Natriuret Pep 459.9 pg/mL (0-900) 07/07/20 14:31 Total Protein 6.8 g/dL (6.3-8.2) 07/11/20 06:08 Albumin 3.0 g/dL (3.9-5) L 07/11/20 06:08 Albumin/Globulin Ratio 0.8 % 07/11/20 06:08 Procalcitonin 7.48 ng/mL (<0.15) 07/06/20 15:44 TSH 0.420 mlU/mL (0.270-4.200) 07/08/20 05:07 Arterial Blood Glucose 336 mg/dL (65-95) H 07/08/20 02:39 Arterial Blood Ionized Calcium 4.6 mg/dL (4.6-5.3) 07/08/20 02:39 Urine Color Yellow (Yellow) 07/07/20 03:35 Urine Turbidity Clear (Clear) 07/07/20 03:35 Urine pH 5.0 (5.0-7.0) 07/07/20 03:35 Ur Specific [place] 1.026 (1.003-1.030) 07/07/20 03:35 Urine Protein 30 mg/dl mg/dL (Negative) 07/07/20 03:35 Urine Glucose (UA) >=500 mg/dL (Negative) 07/07/20 03:35 Urine Ketones Neg mg/dL (Negative) 07/07/20 03:35 Urine Blood Neg (Negative) 07/07/20 03:35 Urine Nitrite Neg (Negative) 07/07/20 03:35 Urine Bilirubin Neg (Negative) 07/07/20 03:35 Urine Urobilinogen 2.0 mg/dL (<2.0) 07/07/20 03:35 Ur Leukocyte Esterase Neg (Negative) 07/07/20 03:35 Urine WBC (Auto) < 1.0 /HPF (0.0-6.0) 07/07/20 03:35 Urine RBC (Auto) 0.0 /HPF (0.0-6.0) 07/07/20 03:35 U Epithel Cells (Auto) < 1.0 /HPF (0-13.0) 07/07/20 03:35 Urine Bacteria (Auto) 1+ /HPF (Negative) 07/07/20 03:35 Urine Osmolality 731 Mosm/kg 07/07/20 03:35 Urine Sodium 54 mmol/L 07/07/20 03:35 Coronavirus (PCR) Positive (Negative) A 07/06/20 09:26 - Diagnostic Impressions Diagnostic Impressions: Echocardiogram 07/08/20 09:36 Transthoracic Echocardiogram Indication: Chest pain BP: 129/66 HR: 67 Conclusions *The study is technically limited due to poor acoustic windows. *Global left ventricular systolic function is normal. *The estimated ejection fraction is greater than 55-60%. *Mild concentric left ventricular hypertrophy is observed. *There is trace of mitral regurgitation. *The right heart chambers are not well visualized. Findings Procedure Info: The study quality is poor. The study is technically limited due to poor acoustic windows. Left Ventricle: The left ventricular chamber size is normal. Mild concentric left ventricular hypertrophy is observed. Global left ventricular systolic function is normal. The estimated ejection fraction is 55-60%. Left Atrium: The left atrial chamber size is normal. Right Ventricle: The right ventricle is not well visualized. Right Atrium: The right atrium is not well visualized. Aortic Valve: The aortic valve leaflets are mildly thickened. There is no evidence of aortic regurgitation. There is no evidence of aortic stenosis. Mitral Valve: The mitral valve leaflets are mildly thickened. There is trace of mitral regurgitation. There is no evidence of mitral stenosis. Tricuspid Valve: The tricuspid valve is not well visualized. Pulmonic Valve: The pulmonic valve is not well visualized. Pericardium: There is no pericardial effusion. Aorta: There is no dilatation of the aortic root. Venous: The inferior vena cava appears normal in size. Measurements Chambers 2D Name Value Normal Range IVSd (2D) 1.02 cm (0.6 - 1.1) LVPWd (2D) 1.02 cm (0.6 - 1.1) LVIDd (2D) 4.88 cm (3.7 - 5.6) LVIDs (2D) 3.22 cm (2 - 3.8) LV FS (2D) 33.94 % - EF Teichholz (2D) 62.68 % - Ao root diameter (2D) 2.8 cm (2 - 3.7) Diastolic/Systolic Function Name Value Normal Range MV E-wave Vmax 0.37 m/sec - MV deceleration time 185.21 msec - MV A-wave Vmax 0.35 m/sec - MV E:A ratio 1.07 ratio - Aortic Valve Name Value Normal Range AV Vmax 1.29 m/sec - AV VTI 24.04 cm - AV peak gradient 6.69 mmHg - AV mean gradient 3.19 mmHg - LVOT diameter 2.01 cm - LVOT Vmax 1.07 m/sec - LVOT VTI 21.78 cm - LVOT peak gradient 4.56 mmHg - LVOT mean gradient 2.37 mmHg - SV LVOT 69.26 ml - LEOBARDO (continuity Vmax) 2.63 cm2 - LEOBARDO (continuity VTI) 2.88 cm2 - Pulmonic Valve/Qp:Qs Name Value Normal Range PV acceleration time 95.15 msec - Beal/IV: Voiding Method Incontinent Active Medications - Current Medications Current Medications: Generic Name Dose Route Start Last Admin Trade Name Freq PRN Reason Stop Dose Admin Acetaminophen 650 mg 07/06/20 11:01 07/09/20 16:35 Acetaminophen 325 Mg Tab PO 650 mg Q4H PRN Administration Pain MILD(1-3)/Fever >100.5/OHARA Acetaminophen 650 mg 07/08/20 01:34 07/08/20 02:04 Acetaminophen 650 Mg Rect Supp OH 650 mg Q4H PRN Administration PainMild (1-3),fever>100.5,OHARA Al Hydrox/Mg Hydrox/Simethicone 30 ml 07/06/20 11:01 Alum-Mag Hydroxide-Simethicone [id number]/5ml Oral Liqd 30 Ml PO Q4H PRN Indigestion Lipase/Protease/Amylase 1 each 07/13/20 11:45 Lipase 10,500/Protease 25,000/Amylase 43,750 (Units) Dr Juárez FEEDTUBE PRN PRN For Clogged Feeding Tube Ascorbic Acid 500 mg 07/06/20 16:00 07/13/20 09:17 Ascorbic Acid 500 Mg Tab PO Not Given QDAY MITALI Dextrose 50 ml 07/06/20 11:01 Dextrose 50% In Water (25gm) 50 Ml Syringe IV Q30MIN PRN Hypoglycemia Protocol Docusate Sodium 100 mg 07/06/20 22:00 07/13/20 09:16 Docusate Sodium 100 Mg Cap PO Not Given BID MITALI Famotidine 20 mg 07/07/20 10:00 07/13/20 10:06 Famotidine 20 Mg/2 Ml Inj IV 20 mg DAILY MITALI Administration Fentanyl 50 mcg 07/13/20 10:23 Fentanyl 100 Mcg/2 Ml Inj IV Q10MIN PRN ANALGESIA Haloperidol Lactate 5 mg 07/10/20 09:00 07/13/20 03:27 Haloperidol Lactate 5 Mg/1 Ml Inj IV 5 mg Q6H PRN Administration Agitation Heparin Sodium (Porcine) 7,500 unit 07/07/20 14:00 07/13/20 06:23 Heparin 5,000 Unit/1 Ml Vial SUB-Q 7,500 unit Q8HR MITALI Administration Hydralazine HCl 10 mg 07/07/20 07:28 Hydralazine 20 Mg/1 Ml Inj IV Q4HR PRN Hypertension Hydrophilic Ointment 1 applic 07/13/20 10:23 Lip Therapy Vaseline TP Q2HR PRN Dry Lips Dextrose 1,000 mls @ 42 mls/hr 07/11/20 09:00 07/13/20 05:30 D5w IV 125 mls/hr DIRECT MITALI Administration Fentanyl Citrate 2,000 mcg in 100 mls @ 3.475 mls/hr 07/13/20 11:00 07/13/20 11:41 Fentanyl Drip Premix IV 2 mcg/kg/hr TITR MITALI 6.95 mls/hr Titration Protocol 1 MCG/KG/HR Propofol 1,000 mg in 100 mls @ 2.085 mls/hr 07/13/20 11:00 07/13/20 11:41 Diprivan 10 Mg/Ml IV 10 mcg/kg/min TITR MITALI 4.17 mls/hr Titration Protocol 5 MCG/KG/MIN Insulin Human Isoph/Insulin Regular 16 unit 07/12/20 08:30 07/13/20 10:07 Insulin Nph/Regular 70/30 Inj SUB-Q 16 unit BIDDIAB MITALI Administration Insulin Human Lispro 0 unit 07/07/20 09:00 07/13/20 11:44 Insulin Lispro 100 Unit/Ml SUB-Q Not Given Q6HR MITALI Protocol Lorazepam 0.5 mg 07/08/20 11:00 07/13/20 07:44 Lorazepam 2 Mg/Ml Vial IV 0.5 mg Q4H PRN Administration Anxiety Methylprednisolone Sodium Succinate 60 mg 07/08/20 13:00 07/13/20 06:24 Methylprednisolone Sod Succinate 125 Mg/2 Ml Inj IV 60 mg Q6HR MITALI Administration Multi-Ingred Cream/Lotion/Oil/Oint 1 applic 07/13/20 10:23 Mineral Oil/Petrolatum, White Ophth Oint 3.5 Gm OU Q4HR PRN Dry Eye(s) Ondansetron HCl 4 mg 07/06/20 11:01 Ondansetron 4 Mg/2 Ml Inj IV Q8H PRN Nausea And Vomiting Oxycodone/Acetaminophen 1 tab 07/06/20 11:01 Oxycodone /Acetaminophen 5-325mg Tab PO Q6H PRN Pain, Moderate (4-6) Senna 8.6 mg 07/06/20 22:00 07/13/20 09:16 Sennosides 8.6 Mg Tab PO Not Given Q12HR MITALI Simple Syrup 15 ml 07/13/20 11:45 Simple Syrup 15 Ml FEEDTUBE PRN PRN Hypoglycemia Simple Syrup 30 ml 07/13/20 11:45 Simple Syrup 15 Ml FEEDTUBE PRN PRN Hypoglycemia Sodium Bicarbonate 325 mg 07/13/20 11:45 Sodium Bicarbonate 325 Mg Tab FEEDTUBE PRN PRN For Clogged Feeding Tube Sodium Chloride 10 ml 07/06/20 22:00 07/13/20 10:06 Sodium Chloride 0.9% 10 Ml Flush Syringe IV 10 ml BID MITALI Administration Sodium Chloride 10 ml 07/06/20 11:01 Sodium Chloride 0.9% 10 Ml Flush Syringe IV PRN PRN LINE FLUSH Zinc Sulfate 220 mg 07/06/20 16:00 07/13/20 09:17 Zinc Sulfate 220 Mg Cap PO Not Given QDAY MITALI Nutrition/Malnutrition Assess - Dietary Evaluation Nutrition/Malnutrition Findings: Nutrition Notes Start: 07/13/20 10:55 Freq: Status: Active Protocol: Document 07/13/20 10:55 AL (Rec: 07/13/20 11:37 AL [id number]) Co-Sign 07/13/20 10:55 LP Nutrition Notes Need for Assessment generated from: MD Order Initial or Follow up Assessment Current Diagnosis Acute Kidney Injury,Diabetes, Hypertension,Hyperlipidemia Other Pertinent Diagnosis COVID-19 (+) Current Diet Full Liquid Labs/Tests BG 281 BUN 44 Pertinent Medications Solumedrol D5w at 42 ml/hr Height 5 ft 2 in Weight 69.5 kg [place] Body Weight (kg) 50.00 BMI 28.0 Subjective/Other Information Consult for TF. Pt was on full liquid diet, but now is being intubated. Percent of energy/protein needs met: 0%/0% Burn Absent Trauma Absent Current % PO Negligible Minimum of two criteria No physical signs of malnutrition #1 Nutrition Diagnosis Inadequate oral intake Etiology acute respiratory failure As Evidenced by Signs and Symptoms pt unable to consume po d/t mechanical vent. Is patient on ventilator? Yes Is Patient Ambulatory and/or Out of Bed No REE-([place] [facility]-confined to bed) [phone] Calculation [facility] Additional Notes Pro: 83-139 g (1.2-2.0 kcal/kg ) Fluid: 1 ml/kcal or per MD order Nutrition Intervention Change Diet Order: TF Nutrition Support: Vital AF 1.2 at 50 ml/hr Flush 100 ml/hr Kcal 1,440 Protein (gm) 90 Fluid (mL) 1,003 Goal #1 Tube Feed tolerance Goal #2 Meet at least 75% of total energy and protein needs Anticipated Discharge Needs: Unable to determine at this time Follow-Up By: 07/15/20 Additional Comments F/U for TF start, tolerance, and for renal labs.
--- NOTE | 2020-07-13 13:38 | Event Note ---
I updated the patient's daughter today over the phone. She states that she was updated by [facility] today. Patient's daughter states that she had no further questions. Hospitalist office phone number provided for additional questions.
--- NOTE | 2020-07-13 14:33 | Consultation ---
History of Present Illness Consult date: 07/13/20 Reason for consult: chest tube Chief complaint: bilateral pneumothorax s/p intubation - History of present illness History of present illness: 69 year old female who was admitted about a week ago with symptomatic COVID. She was recently intubated due to respiratory failure. Chest x-ray after intubation showed bilateral pneumothorax L>R with desturation on high PEEP and 90% FiO2. Consulted for chest tube placement. Past History Past Medical History: diabetes, hypertension, hyperlipidemia Past Surgical History: cholecystectomy (2018) Social history: , lives with family, full code. denies: smoking, alcohol abuse, prescription drug abuse, IV drug use Family history: no significant family history Medications and Allergies Allergies Allergy/AdvReac Type Severity Reaction Status Date / Time No Known Allergies Allergy Unverified 08/20/15 08:58 Home Medications Medication Instructions Recorded Confirmed Last Taken Type Unobtainable 07/06/20 07/06/20 Unknown History Active Meds: Active Medications Acetaminophen (Acetaminophen 325 Mg Tab) 650 mg PO Q4H PRN PRN Reason: Pain MILD(1-3)/Fever >100.5/OHARA Last Admin: 07/09/20 16:35 Dose: 650 mg Documented by: Acetaminophen (Acetaminophen 650 Mg Rect Supp) 650 mg [place] Q4H PRN PRN Reason: PainMild (1-3),fever>100.5,OHARA Last Admin: 07/08/20 02:04 Dose: 650 mg Documented by: Al Hydrox/Mg Hydrox/Simethicone (Alum-Mag Hydroxide-Simethicone [phone]/5ml Oral Liqd 30 Ml) 30 ml PO Q4H PRN PRN Reason: Indigestion Lipase/Protease/Amylase (Lipase 10,500/Protease 25,000/Amylase 43,750 (Units) Dr Juárez) 1 each FEEDTUBE PRN PRN PRN Reason: For Clogged Feeding Tube Ascorbic Acid (Ascorbic Acid 500 Mg Tab) 500 mg PO QDAY [facility] Last Admin: 07/13/20 09:17 Dose: Not Given Documented by: Dextrose (Dextrose 50% In Water (25gm) 50 Ml Syringe) 50 ml IV Q30MIN PRN; Protocol PRN Reason: Hypoglycemia Docusate Sodium (Docusate Sodium 100 Mg Cap) 100 mg PO BID [facility] Last Admin: 07/13/20 09:16 Dose: Not Given Documented by: Famotidine (Famotidine 20 Mg/2 Ml Inj) 20 mg IV DAILY [facility] Last Admin: 07/13/20 10:06 Dose: 20 mg Documented by: Fentanyl (Fentanyl 100 Mcg/2 Ml Inj) 50 mcg IV Q10MIN PRN PRN Reason: ANALGESIA Haloperidol Lactate (Haloperidol Lactate 5 Mg/1 Ml Inj) 5 mg IV Q6H PRN PRN Reason: Agitation Last Admin: 07/13/20 03:27 Dose: 5 mg Documented by: Heparin Sodium (Porcine) (Heparin 5,000 Unit/1 Ml Vial) 7,500 unit SUB-Q Q8HR [facility] Last Admin: 07/13/20 14:03 Dose: 7,500 unit Documented by: Hydralazine HCl (Hydralazine 20 Mg/1 Ml Inj) 10 mg IV Q4HR PRN PRN Reason: Hypertension Hydrophilic Ointment (Lip Therapy Vaseline) 1 applic TP Q2HR PRN PRN Reason: Dry Lips Fentanyl Citrate (Fentanyl Drip Premix) 2,000 mcg in 100 mls @ 3.475 mls/hr IV TITR [facility]; Protocol Last Titration: 07/13/20 11:41 Dose: 2 mcg/kg/hr, 6.95 mls/hr Documented by: Propofol (Diprivan 10 Mg/Ml) 1,000 mg in 100 mls @ 2.085 mls/hr IV TITR [facility]; Protocol Last Titration: 07/13/20 11:41 Dose: 10 mcg/kg/min, 4.17 mls/hr Documented by: Insulin Human Isoph/Insulin Regular (Insulin Nph/Regular 70/30 Inj) 18 unit SUB-Q BIDDIAB [facility] Insulin Human Lispro (Insulin Lispro 100 Unit/Ml) 0 unit SUB-Q Q6HR [facility]; Protocol Last Admin: 07/13/20 11:44 Dose: Not Given Documented by: Lorazepam (Lorazepam 2 Mg/Ml Vial) 0.5 mg IV Q4H PRN PRN Reason: Anxiety Last Admin: 07/13/20 07:44 Dose: 0.5 mg Documented by: Methylprednisolone Sodium Succinate (Methylprednisolone Sod Succinate 125 Mg/2 Ml Inj) 60 mg IV Q6HR [facility] Last Admin: 07/13/20 14:02 Dose: 60 mg Documented by: Multi-Ingred Cream/Lotion/Oil/Oint (Mineral Oil/Petrolatum, White Ophth Oint 3.5 Gm) 1 applic OU Q4HR PRN PRN Reason: Dry Eye(s) Ondansetron HCl (Ondansetron 4 Mg/2 Ml Inj) 4 mg IV Q8H PRN PRN Reason: Nausea And Vomiting Oxycodone/Acetaminophen (Oxycodone /Acetaminophen 5-325mg Tab) 1 tab PO Q6H PRN PRN Reason: Pain, Moderate (4-6) Senna (Sennosides 8.6 Mg Tab) 8.6 mg PO Q12HR [facility] Last Admin: 07/13/20 09:16 Dose: Not Given Documented by: Simple Syrup (Simple Syrup 15 Ml) 15 ml FEEDTUBE PRN PRN PRN Reason: Hypoglycemia Simple Syrup (Simple Syrup 15 Ml) 30 ml FEEDTUBE PRN PRN PRN Reason: Hypoglycemia Sodium Bicarbonate (Sodium Bicarbonate 325 Mg Tab) 325 mg FEEDTUBE PRN PRN PRN Reason: For Clogged Feeding Tube Sodium Chloride (Sodium Chloride 0.9% 10 Ml Flush Syringe) 10 ml IV BID [facility] Last Admin: 07/13/20 10:06 Dose: 10 ml Documented by: Sodium Chloride (Sodium Chloride 0.9% 10 Ml Flush Syringe) 10 ml IV PRN PRN PRN Reason: LINE FLUSH Zinc Sulfate (Zinc Sulfate 220 Mg Cap) 220 mg PO QDAY [facility] Last Admin: 07/13/20 09:17 Dose: Not Given Documented by: Review of Systems ROS unobtainable: due to endotracheal tube Exam Vital Signs Pulse Resp Pulse Ox 68 27 H 80 L 07/06/20 08:16 07/06/20 08:16 07/06/20 08:16 - General physical appearance Positive: well developed, no distress, no pain - Respiratory Positive: normal expansion, normal respiratory effort, other (intubated on ventilator support) - Extremities Extremities: no ischemia - Abdomen Abdomen: Present: soft. Absent: tender, distended Results - Labs 07/13/20 04:39 07/13/20 04:39 Abnormal lab results 07/12/20 07/12/20 07/13/20 Range/Units 17:25 23:17 04:39 MCH (28-32) pg Chloride 109.4 H (98-107) mmol/L BUN 44 H (7-17) mg/dL Glucose 281 H (65-100) mg/dL POC Glucose 130 H 161 H (70-105) mg/dL 07/13/20 07/13/20 07/13/20 Range/Units 04:39 05:16 11:56 MCH 26 L (28-32) pg Chloride (98-107) mmol/L BUN (7-17) mg/dL Glucose (65-100) mg/dL POC Glucose 210 H 229 H (70-105) mg/dL Diabetes panel 07/13/20 Range/Units 04:39 Sodium 142 D (137-145) mmol/L Potassium 4.1 (3.6-5.0) mmol/L Chloride 109.4 H (98-107) mmol/L Carbon Dioxide 24 (22-30) mmol/L BUN 44 H (7-17) mg/dL Creatinine 0.9 (0.6-1.2) mg/dL Glucose 281 H (65-100) mg/dL Calcium 8.5 (8.4-10.2) mg/dL Calcium panel 07/13/20 Range/Units 04:39 Calcium 8.5 (8.4-10.2) mg/dL Pituitary panel 07/13/20 Range/Units 04:39 Sodium 142 D (137-145) mmol/L Potassium 4.1 (3.6-5.0) mmol/L Chloride 109.4 H (98-107) mmol/L Carbon Dioxide 24 (22-30) mmol/L BUN 44 H (7-17) mg/dL Creatinine 0.9 (0.6-1.2) mg/dL Glucose 281 H (65-100) mg/dL Calcium 8.5 (8.4-10.2) mg/dL Adrenal panel 07/13/20 Range/Units 04:39 Sodium 142 D (137-145) mmol/L Potassium 4.1 (3.6-5.0) mmol/L Chloride 109.4 H (98-107) mmol/L Carbon Dioxide 24 (22-30) mmol/L BUN 44 H (7-17) mg/dL Creatinine 0.9 (0.6-1.2) mg/dL Glucose 281 H (65-100) mg/dL Calcium 8.5 (8.4-10.2) mg/dL - Imaging Chest x-ray: report reviewed, image reviewed Assessment and Plan 69 year old COVID+ female with bilateral pneumothorax and respiratory failure requiring ventilator support. Now with bilateral pneumothorax and hypoxemia. Bilateral chest tubes place without incident. Consent obtained from daughter Rebecca over the phone who expressed understanding.
--- NOTE | 2020-07-13 14:39 | Procedure Note ---
Date of procedure: 07/13/20 Pre-op diagnosis: bilateral pneumothorax Post-op diagnosis: same Procedure: bilateral chest tube placement Anesthesia: local Surgeon: JAMES FITZPATRICK Gaming Investigator: RICK LY Estimated blood loss: minimal Pathology: none Condition: stable Disposition: ICU (After a time out, bilateral 24F chest tubes were placed starting with the left side. Both are inserted to about 10cm elaina at the level of the skin and attached to pleurovacs to 20mmHg suction. Procedure done under sterile conditions.)
--- NOTE | 2020-07-13 14:54 | XRay Report ---
CHEST 1 VIEW 2:22 PM INDICATION: biltaeral chest tube insertion. COMPARISON: Earlier today FINDINGS: Support devices: Endotracheal tube has been pulled back and is in satisfactory position. New thoracos daljit tubes are noted, right thoracostomy tube tip projects at the level of the right hilum and left t horacostomy tube tip is at the apex laterally. Heart: Stable. Lungs/Pleura: Pneumothoraces are decreased in size and are tiny on today's exam. Bilateral airspace d isease is stable. IMPRESSION: 1. Interval decrease in size of pneumothoraces after chest tube placement. 2. Endotracheal tube in satisfactory position. Signer Name: Sage Sam MD Signed: 07/13/2020 2:49 PM Workstation Name: [id number]
--- NOTE | 2020-07-13 15:42 | Progress Note ---
Assessment and Plan Cultures: SARS CoV2 PCR: Positive 07/06/2020 blood culture: No growth A/P: 69-year-old female with hypertension, diabetes: #Sepsis: Secondary to COVID-19 #Bilateral pneumonia: Secondary to COVID-19 #Acute hypoxic respiratory failure: On HFNC/BiPAP #CARMEN: Monitor renal function #Elevated D-dimer: VTE evaluation negative. Recs: -continue steroids, dosing per ICU -Completed empiric antibiotics -Completed remdesivir -prophylactic anticoagulation based on d-dimer per hospital protocol -trend ferritin, LDH, d-dimer, CRP every 2-3 days for risk stratification and to assess disease progression -guarded prognosis Addison Kathleen MD [facility] O: [phone] F: [phone] Subjective Date of service: 07/13/20 Interval history: afebrile, s/p bilateral chest tube placement today. Normal white count. Imaging personally reviewed: CXR: Improving pneumothroaces Objective - Exam Narrative Exam: Physical exam deferred due to PPE conservation strategy. Please refer to primary team's note. - Constitutional Vitals: Vital Signs Temp Pulse Resp BP Pulse Ox 98.1 F 60 20 87/43 94 07/13/20 12:00 07/13/20 15:19 07/13/20 15:01 07/13/20 15:19 07/13/20 15:19 Temperature -Last 24 Hours Temperature 98.1 F Temperature 97.4 F Temperature 98.4 F Temperature 97.4 F Temperature 97.2 F Temperature 98 F - Labs CBC & Chem 7: 07/13/20 04:39 07/13/20 04:39 Labs: Abnormal lab results 07/12/20 07/12/20 07/13/20 Range/Units 17:25 23:17 04:39 MCH (28-32) pg Chloride 109.4 H (98-107) mmol/L BUN 44 H (7-17) mg/dL Glucose 281 H (65-100) mg/dL POC Glucose 130 H 161 H (70-105) mg/dL 07/13/20 07/13/20 07/13/20 Range/Units 04:39 05:16 11:56 MCH 26 L (28-32) pg Chloride (98-107) mmol/L BUN (7-17) mg/dL Glucose (65-100) mg/dL POC Glucose 210 H 229 H (70-105) mg/dL
[2020-07-13 16:01] LABS: ABG Base Excess -2.9 mmol/L (-2.0-3.0); ABG Methemoglobin 0.5 % (0.0-1.5); ABG Oxygen Saturation 94.5 % (95.0-99.0); ABG PCO2 32.9 mm Hg; ABG PH 7.422 pH Units (7.350-7.450); ABG PO2 73.7 mm Hg (80.0-90.0)
--- NOTE | 2020-07-13 16:13 | XRay Report ---
ABDOMEN 1 VIEW(S) INDICATION / CLINICAL INFORMATION: OGT insertion. COMPARISON: None. FINDINGS: TUBES / LINES: Gastric tube tip is at the distal stomach near the gastroduodenal junction. BOWEL GAS PATTERN: No significant abnormality. FREE AIR / EXTRALUMINAL GAS: None seen. ADDITIONAL FINDINGS: Tiny right pneumothorax. There appears to be a small amount of pneumopericardium /pneumomediastinum as well. IMPRESSION: 1. Gastric tube tip projects at the gastroduodenal junction. 2. Trace right pneumothorax with trace pneumomediastinum/pneumopericardium. Signer Name: Sage Sam MD Signed: 07/13/2020 4:08 PM Workstation Name: [id number]
[2020-07-14] MEDS: INSULIN LISPRO 100 UNIT/ML SUB-Q SCH ×4 (00:55→17:52)
[2020-07-14] MEDS: methylPREDNISolone Sod Succinate 125 MG/2 ML INJ IV SCH ×5 (00:55→23:27)
--- NOTE | 2020-07-14 04:57 | XRay Report ---
CHEST 1 VIEW 07/14/2020 2:00 AM INDICATION / CLINICAL INFORMATION: follow up respiratory failure. COMPARISON: 07/13/2020 FINDINGS: SUPPORT DEVICES: New NG tube enters stomach. ET tube and bilateral chest tubes again projects in expe cted position HEART / MEDIASTINUM: No significant abnormality. LUNGS / PLEURA: Bilateral parenchymal disease, unchanged. Tiny right apical pneumothorax, unchanged. Previously seen left pneumothorax no longer visualized ADDITIONAL FINDINGS: New subcutaneous emphysema left supraclavicular region. IMPRESSION: 1. Stable bilateral parenchymal disease. 2. Tiny right apical pneumothorax with chest tube in place Signer Name: Fernando Vela MD Signed: 07/14/2020 4:52 AM Workstation Name: [id number]
[2020-07-14 05:18] LABS: Hematocrit 34.5 % (30.3-42.9); Hemoglobin 11.3 gm/dl (10.1-14.3); Mean Corpuscular HGB Conc 33 % (30-34); Mean Corpuscular Volume 79 fl (79-97); Platelet Count 134 K/mm3 (140-440); Red Blood Count 4.35 M/mm3 (3.65-5.03); Red Cell Distribution Width 14.7 % (13.2-15.2)
[2020-07-14 05:32] LABS: Calcium 9.2 mg/dL (8.4-10.2)
[2020-07-14] MEDS: HEPARIN 5,000 UNIT/1 ML VIAL SUB-Q SCH ×3 (06:24→21:07)
--- NOTE | 2020-07-14 08:37 | Progress Note ---
Assessment and Plan 69 year old female COVID+ s/p bilateral chest tube placement for bilateral ptx after being placed on ventilator. Drastic improvement in pneumothoraces. prognosis is guarded as she continues to have low spo2 on 100% FiO2. no further surgical intervention indicated at this time. Subjective Date of service: 07/14/20 Narrative: no acute events overnight. Chest x-rays since tube placement have showed resolution of left ptx, and significant decrease in right. Objective Vital Signs - 12hr 07/13/20 07/13/20 07/13/20 21:00 21:30 22:01 Temperature Pulse Rate 60 60 60 Pulse Rate [ From Monitor] Respiratory 30 H 30 H 30 H Rate Blood Pressure 114/66 94/67 106/54 O2 Sat by Pulse 93 93 92 Oximetry 07/13/20 07/13/20 07/13/20 22:30 23:00 23:28 Temperature Pulse Rate 61 62 62 Pulse Rate [ From Monitor] Respiratory 30 H 30 H Rate Blood Pressure 95/63 97/56 100/59 O2 Sat by Pulse 91 92 93 Oximetry 07/13/20 07/14/20 07/14/20 23:30 00:00 00:01 Temperature 96.6 F L Pulse Rate 61 63 63 Pulse Rate [ 63 From Monitor] Respiratory 30 H 30 H 30 H Rate Blood Pressure 100/59 99/66 O2 Sat by Pulse 91 91 91 Oximetry 07/14/20 07/14/20 07/14/20 00:30 01:00 01:30 Temperature Pulse Rate 63 64 65 Pulse Rate [ From Monitor] Respiratory 30 H 30 H 30 H Rate Blood Pressure 101/59 106/62 108/58 O2 Sat by Pulse 91 91 89 Oximetry 07/14/20 07/14/20 07/14/20 02:00 02:30 03:00 Temperature Pulse Rate 67 66 68 Pulse Rate [ From Monitor] Respiratory 30 H 30 H 30 H Rate Blood Pressure 109/57 110/69 107/68 O2 Sat by Pulse 89 90 92 Oximetry 07/14/20 07/14/20 07/14/20 03:24 03:30 04:00 Temperature 97.8 F Pulse Rate 69 70 Pulse Rate [ 70 From Monitor] Respiratory 30 H 30 H Rate Blood Pressure 106/52 106/52 O2 Sat by Pulse 89 90 Oximetry 07/14/20 07/14/20 07/14/20 04:30 05:00 05:21 Temperature Pulse Rate 69 72 72 Pulse Rate [ From Monitor] Respiratory 30 H 30 H Rate Blood Pressure 107/56 105/60 112/60 O2 Sat by Pulse 88 89 89 Oximetry 07/14/20 07/14/20 07/14/20 05:30 06:00 06:31 Temperature Pulse Rate 72 68 72 Pulse Rate [ From Monitor] Respiratory 30 H 30 H 30 H Rate Blood Pressure 103/59 111/62 106/57 O2 Sat by Pulse 89 88 92 Oximetry 07/14/20 07/14/20 07/14/20 07:00 07:30 08:00 Temperature 97.5 F L Pulse Rate 71 75 72 Pulse Rate [ 72 From Monitor] Respiratory 30 H 30 H 30 H Rate Blood Pressure 106/59 106/49 103/54 O2 Sat by Pulse 89 89 86 Oximetry - Respiratory other (intubated on vent at FiO2 100%. bilateral chest tubes in place on suction, no significant air leak and dressings dry.) - Labs 07/14/20 04:31 07/14/20 04:31 Diabetes panel 07/14/20 Range/Units 04:31 Sodium 142 (137-145) mmol/L Potassium 4.0 (3.6-5.0) mmol/L Chloride 106.8 (98-107) mmol/L Carbon Dioxide 21 L (22-30) mmol/L BUN 66 H (7-17) mg/dL Creatinine 1.2 (0.6-1.2) mg/dL Glucose 139 H (65-100) mg/dL Calcium 9.2 (8.4-10.2) mg/dL Calcium panel 07/14/20 Range/Units 04:31 Calcium 9.2 (8.4-10.2) mg/dL Pituitary panel 07/14/20 Range/Units 04:31 Sodium 142 (137-145) mmol/L Potassium 4.0 (3.6-5.0) mmol/L Chloride 106.8 (98-107) mmol/L Carbon Dioxide 21 L (22-30) mmol/L BUN 66 H (7-17) mg/dL Creatinine 1.2 (0.6-1.2) mg/dL Glucose 139 H (65-100) mg/dL Calcium 9.2 (8.4-10.2) mg/dL Adrenal panel 02/17/21 Range/Units 04:31 Sodium 142 (137-145) mmol/L Potassium 4.0 (3.6-5.0) mmol/L Chloride 106.8 (98-107) mmol/L Carbon Dioxide 21 L (22-30) mmol/L BUN 66 H (7-17) mg/dL Creatinine 1.2 (0.6-1.2) mg/dL Glucose 139 H (65-100) mg/dL Calcium 9.2 (8.4-10.2) mg/dL
[2020-07-14] MEDS: DOCUSATE SODIUM 100 MG/10 ML ORAL LIQD FEEDTUBE SCH ×2 (09:00→21:07)
[2020-07-14] MEDS: ASCORBIC ACID 500 MG TAB PO SCH (09:01)
[2020-07-14] MEDS: FAMOTIDINE 20 MG/2 ML INJ IV SCH (09:01)
[2020-07-14] MEDS: SENNOSIDES 8.6 MG TAB PO SCH ×2 (09:01→21:07)
[2020-07-14] MEDS: ZINC SULFATE 220 MG CAP PO SCH (09:01)
[2020-07-14] MEDS: INSULIN NPH/REGULAR 70/30 INJ SUB-Q SCH ×2 (11:18→16:33)
--- NOTE | 2020-07-14 11:35 | Progress Note ---
Assessment and Plan 69 y/o female, covid positive admitted with acute respiratory failure. 07/14/20: Spoke with daughter over the phone. Updated her. Decreased Tidal Volume and increase PEEP. Will repeat ABG in the am or sooner pending clinical picture. Feeding and tolerating. Continue jo catheter for accurate I/O. Appreciate surgery help and continue chest tubes to wall suction until extubated. Guarded prognosis. 07/13/20: Will electively intubate today. Asked Anesthesia to help with this as patient will likely need paralytic therapy to assist with procedure. Will place on lung protective strategy. Spoke with daughter and explained that even though intubation is the next step, not a guarantee that she will improve with this. Prognosis is very very guarded. Will feed and place jo. Nutrition consult. 07/12/20: Will ask RT to attempt HFNC again today, also attempt to feed patient again. Also if able to allow daughter to at least call and speak to her if possible. Wean FiO2 back down on bipap as patient had significant desats this am but are better now. Guarded prognosis. Updated daughter this am. 07/11/20: Will attempt HFNC this afternoon. IF tolerates will allow patient to eat as well. Daughter wants to speak with her if possible. If she tolerates HFNC with eating then we will call her. Agree with D5W for insensible losses. Continue High dose steroids. Guarded prognosis. 07/10/20: Updated daughter this morning. Will hold on intubation as of right now. Will add scheduled haldol to see if this helps patient to relax and not fight the bipap mask. Really trying to avoid intubation given her COVID p ositive state and history of outcomes of ventilated patients. Will continue steroids at 60q6. Need to address nutrition soon. If intubated then will place NG/OG tube for supplementation. No further lasix as no improvement. Guarded prognosis. No current indication for ABG. Know that O2 will be marginal given requirements. Will cancel current order. 07/09/20: Continue steroids and Remdesivir. I increased steroids to 60q6 on yesterday. Continue NPO state and Continue bipap. Trying very had to not intubate but given lack of improvement and lack of nutrition, may have to electively do so in the next 12-24 hours. Will give a small dose of IV lasix today. Prognosis is very very guarded. Apparently is upstairs as well. 07/08/20: BNP was high normal, hold on lasix today. Continue steroids and remdesivir, may consider increasing steroids to BID. Continue bipap, NPO. Will give some ativan, very low dose PRN to see if this helps with work of breathing. Sinus ravindra is stable. Guarded prognosis. Doing everything to prevent extubation. 1. Will check bnP 2. Agree with steroids and remdesivir 3. Lasix 40mg IV x1 given today 4. Continue bipap for now, wean for sats >88% but wait a few hours until lasix is given. 5. PRone is possible 6. Guarded prognosis. If BNP elevated would need echo 7. Spoke with nursing about bradycardia, sinus on EKG, but if persistently low in 30's please repeat EKG Subjective Date of service: 07/14/20 Interval history: Intubated on yesterday. Sedated Still on 100%. Made chANGES TO VENT TODAY Objective Vital Signs - 12hr 07/14/20 07/14/20 07/14/20 00:00 00:01 00:30 Temperature 96.6 F L Pulse Rate 63 63 63 Pulse Rate [ 63 From Monitor] Respiratory 30 H 30 H 30 H Rate Blood Pressure 99/66 101/59 O2 Sat by Pulse 91 91 91 Oximetry 07/14/20 07/14/20 07/14/20 01:00 01:30 02:00 Temperature Pulse Rate 64 65 67 Pulse Rate [ From Monitor] Respiratory 30 H 30 H 30 H Rate Blood Pressure 106/62 108/58 109/57 O2 Sat by Pulse 91 89 89 Oximetry 07/14/20 07/14/20 07/14/20 02:30 03:00 03:24 Temperature 97.8 F Pulse Rate 66 68 Pulse Rate [ From Monitor] Respiratory 30 H 30 H Rate Blood Pressure 110/69 107/68 O2 Sat by Pulse 90 92 Oximetry 07/14/20 07/14/20 07/14/20 03:30 04:00 04:30 Temperature Pulse Rate 69 70 69 Pulse Rate [ 70 From Monitor] Respiratory 30 H 30 H 30 H Rate Blood Pressure 106/52 106/52 107/56 O2 Sat by Pulse 89 90 88 Oximetry 07/14/20 07/14/20 07/14/20 05:00 05:21 05:30 Temperature Pulse Rate 72 72 72 Pulse Rate [ From Monitor] Respiratory 30 H 30 H Rate Blood Pressure 105/60 112/60 103/59 O2 Sat by Pulse 89 89 89 Oximetry 07/14/20 07/14/20 07/14/20 06:00 06:31 07:00 Temperature 97.5 F L Pulse Rate 68 72 71 Pulse Rate [ From Monitor] Respiratory 30 H 30 H 30 H Rate Blood Pressure 111/62 106/57 106/59 O2 Sat by Pulse 88 92 89 Oximetry 07/14/20 07/14/20 07/14/20 07:30 08:00 08:30 Temperature 97.5 F L Pulse Rate 75 73 74 Pulse Rate [ 72 From Monitor] Respiratory 30 H 30 H 30 H Rate Blood Pressure 106/49 103/54 108/60 O2 Sat by Pulse 89 86 87 Oximetry 07/14/20 07/14/20 07/14/20 08:41 09:00 09:30 Temperature Pulse Rate 73 75 73 Pulse Rate [ From Monitor] Respiratory 30 H 30 H Rate Blood Pressure 103/54 102/54 105/55 O2 Sat by Pulse 85 86 90 Oximetry 07/14/20 07/14/20 07/14/20 10:00 10:30 10:54 Temperature Pulse Rate 74 76 74 Pulse Rate [ From Monitor] Respiratory 30 H 30 H Rate Blood Pressure 107/58 113/58 107/58 O2 Sat by Pulse 90 89 90 Oximetry 07/14/20 11:00 Temperature Pulse Rate 80 Pulse Rate [ From Monitor] Respiratory 30 H Rate Blood Pressure 107/61 O2 Sat by Pulse 90 Oximetry Constitutional: no acute distress, alert, other (full face mask on for bipap therapy.) Eyes: non-icteric Neck: supple Ascultation: Bilateral: diminished breath sounds CBC and BMP: 07/14/20 04:31 07/14/20 04:31 ABG, PT/INR, D-dimer: ABG ABG pH 7.398 (7.320-7.450) 07/14/20 03:57 POC ABG pCO2 32.8 mmHg (32.0-48.0) 07/14/20 03:57 ABG pCO2 32.9 mm Hg 07/13/20 15:50 POC ABG pO2 63.2 mmHg (83-108) L 07/14/20 03:57 ABG pO2 73.7 mm Hg (80.0-90.0) L 07/13/20 15:50 POC ABG HCO3 19.8 07/14/20 03:57 ABG O2 Saturation 94.5 % (95.0-99.0) L 07/13/20 15:50 PT/INR, D-dimer PT 14.7 Sec. (12.2-14.9) 07/06/20 08:50 INR 1.15 (0.87-1.13) H 07/06/20 08:50 D-Dimer 1786.87 ng/mlDDU (0-234) H 07/10/20 05:25 Abnormal lab findings: Abnormal Labs 07/06/20 07/06/20 07/06/20 08:50 08:50 08:50 WBC MCV 78 L MCH 26 L Plt Count Lymph % (Auto) Lymph # (Auto) Seg Neutrophils % Seg Neuts % (Manual) 80.0 H Lymphocytes % (Manual) 10.0 L Nucleated RBC % 4.0 H Seg Neutrophils # Seg Neutrophils # Man Lymphocytes # (Manual) 0.9 L INR 1.15 H D-Dimer 1435.13 H ABG pH POC ABG pCO2 POC ABG pO2 ABG pO2 ABG O2 Saturation ABG Base Excess ABG Hemoglobin ABG Oxyhemoglobin ABG Glucose Oxyhemoglobin Carboxyhemoglobin Sodium 136 L Chloride Carbon Dioxide BUN 45 H Creatinine 1.6 H Glucose 385 H POC Glucose Hemoglobin A1c Lactic Acid Ferritin Alkaline Phosphatase 130 H Lactate Dehydrogenase Troponin T 0.034 H C-Reactive Protein Albumin 3.2 L Arterial Blood Glucose Coronavirus (PCR) 07/06/20 07/06/20 07/06/20 08:50 08:50 08:50 WBC MCV MCH Plt Count Lymph % (Auto) Lymph # (Auto) Seg Neutrophils % Seg Neuts % (Manual) Lymphocytes % (Manual) Nucleated RBC % Seg Neutrophils # Seg Neutrophils # Man Lymphocytes # (Manual) INR D-Dimer ABG pH POC ABG pCO2 POC ABG pO2 ABG pO2 ABG O2 Saturation ABG Base Excess ABG Hemoglobin ABG Oxyhemoglobin ABG Glucose Oxyhemoglobin Carboxyhemoglobin Sodium Chloride Carbon Dioxide BUN Creatinine Glucose 385 H POC Glucose Hemoglobin A1c Lactic Acid 2.30 H* Ferritin 1158.0 H Alkaline Phosphatase Lactate Dehydrogenase 471 H Troponin T C-Reactive Protein 10.40 H Albumin Arterial Blood Glucose Coronavirus (PCR) 07/06/20 07/06/20 07/06/20 09:26 15:44 15:44 WBC MCV MCH Plt Count Lymph % (Auto) Lymph # (Auto) Seg Neutrophils % Seg Neuts % (Manual) Lymphocytes % (Manual) Nucleated RBC % Seg Neutrophils # Seg Neutrophils # Man Lymphocytes # (Manual) INR D-Dimer ABG pH POC ABG pCO2 POC ABG pO2 ABG pO2 ABG O2 Saturation ABG Base Excess ABG Hemoglobin ABG Oxyhemoglobin ABG Glucose Oxyhemoglobin Carboxyhemoglobin Sodium Chloride Carbon Dioxide BUN Creatinine Glucose POC Glucose Hemoglobin A1c 11.8 H Lactic Acid 2.40 H* Ferritin Alkaline Phosphatase Lactate Dehydrogenase Troponin T C-Reactive Protein Albumin Arterial Blood Glucose Coronavirus (PCR) Positive A 07/06/20 07/06/20 07/06/20 15:44 17:40 20:35 WBC MCV MCH Plt Count Lymph % (Auto) Lymph # (Auto) Seg Neutrophils % Seg Neuts % (Manual) Lymphocytes % (Manual) Nucleated RBC % Seg Neutrophils # Seg Neutrophils # Man Lymphocytes # (Manual) INR D-Dimer ABG pH 7.455 H POC ABG pCO2 30.9 L POC ABG pO2 50.0 L ABG pO2 ABG O2 Saturation ABG Base Excess ABG Hemoglobin 11.1 L ABG Oxyhemoglobin 80.6 L ABG Glucose 357 H Oxyhemoglobin Carboxyhemoglobin 0.3 L Sodium Chloride Carbon Dioxide BUN Creatinine Glucose POC Glucose 324 H Hemoglobin A1c Lactic Acid Ferritin Alkaline Phosphatase Lactate Dehydrogenase 683 H Troponin T C-Reactive Protein Albumin Arterial Blood Glucose 357 H Coronavirus (PCR) 07/06/20 07/06/20 07/07/20 21:49 23:52 02:19 WBC MCV MCH Plt Count Lymph % (Auto) Lymph # (Auto) Seg Neutrophils % Seg Neuts % (Manual) Lymphocytes % (Manual) Nucleated RBC % Seg Neutrophils # Seg Neutrophils # Man Lymphocytes # (Manual) INR D-Dimer ABG pH 7.455 H POC ABG pCO2 31.9 L POC ABG pO2 50.7 L 62.0 L ABG pO2 ABG O2 Saturation ABG Base Excess ABG Hemoglobin 10.8 L 10.8 L ABG Oxyhemoglobin 80.2 L 88.3 L ABG Glucose 358 H 330 H Oxyhemoglobin Carboxyhemoglobin 0.2 L 0.2 L Sodium Chloride Carbon Dioxide BUN Creatinine Glucose POC Glucose 336 H Hemoglobin A1c Lactic Acid Ferritin Alkaline Phosphatase Lactate Dehydrogenase Troponin T C-Reactive Protein Albumin Arterial Blood Glucose 358 H 330 H Coronavirus (PCR) 07/07/20 07/07/20 07/07/20 02:42 02:42 07:54 WBC MCV MCH 26 L Plt Count Lymph % (Auto) Lymph # (Auto) Seg Neutrophils % Seg Neuts % (Manual) 85.0 H Lymphocytes % (Manual) 6.0 L Nucleated RBC % Seg Neutrophils # Seg Neutrophils # Man 7.9 H Lymphocytes # (Manual) 0.6 L INR D-Dimer ABG pH POC ABG pCO2 POC ABG pO2 ABG pO2 ABG O2 Saturation ABG Base Excess ABG Hemoglobin ABG Oxyhemoglobin ABG Glucose Oxyhemoglobin Carboxyhemoglobin Sodium Chloride Carbon Dioxide BUN 47 H Creatinine 1.3 H Glucose 336 H POC Glucose 289 H Hemoglobin A1c Lactic Acid Ferritin Alkaline Phosphatase Lactate Dehydrogenase Troponin T C-Reactive Protein Albumin Arterial Blood Glucose Coronavirus (PCR) 07/07/20 07/07/20 07/07/20 11:07 15:40 23:27 WBC MCV MCH Plt Count Lymph % (Auto) Lymph # (Auto) Seg Neutrophils % Seg Neuts % (Manual) Lymphocytes % (Manual) Nucleated RBC % Seg Neutrophils # Seg Neutrophils # Man Lymphocytes # (Manual) INR D-Dimer ABG pH POC ABG pCO2 POC ABG pO2 ABG pO2 ABG O2 Saturation ABG Base Excess ABG Hemoglobin ABG Oxyhemoglobin ABG Glucose Oxyhemoglobin Carboxyhemoglobin Sodium Chloride Carbon Dioxide BUN Creatinine Glucose POC Glucose 322 H 346 H 274 H Hemoglobin A1c Lactic Acid Ferritin Alkaline Phosphatase Lactate Dehydrogenase Troponin T C-Reactive Protein Albumin Arterial Blood Glucose Coronavirus (PCR) 07/08/20 07/08/20 07/08/20 02:39 05:07 05:07 WBC MCV MCH Plt Count Lymph % (Auto) Lymph # (Auto) Seg Neutrophils % Seg Neuts % (Manual) Lymphocytes % (Manual) Nucleated RBC % Seg Neutrophils # Seg Neutrophils # Man Lymphocytes # (Manual) INR D-Dimer 2542.57 H ABG pH 7.487 H POC ABG pCO2 POC ABG pO2 52.5 L ABG pO2 ABG O2 Saturation ABG Base Excess ABG Hemoglobin 11.8 L ABG Oxyhemoglobin ABG Glucose 336 H Oxyhemoglobin Carboxyhemoglobin Sodium Chloride Carbon Dioxide BUN 51 H Creatinine Glucose 326 H POC Glucose Hemoglobin A1c Lactic Acid Ferritin Alkaline Phosphatase Lactate Dehydrogenase Troponin T C-Reactive Protein 4.30 H Albumin 3.2 L Arterial Blood Glucose 336 H Coronavirus (PCR) 07/08/20 07/08/20 07/08/20 05:07 05:07 05:21 WBC MCV MCH 25 L Plt Count Lymph % (Auto) 7.9 L Lymph # (Auto) 0.6 L Seg Neutrophils % 85.6 H Seg Neuts % (Manual) Lymphocytes % (Manual) Nucleated RBC % Seg Neutrophils # Seg Neutrophils # Man Lymphocytes # (Manual) INR D-Dimer ABG pH POC ABG pCO2 POC ABG pO2 ABG pO2 ABG O2 Saturation ABG Base Excess ABG Hemoglobin ABG Oxyhemoglobin ABG Glucose Oxyhemoglobin Carboxyhemoglobin Sodium Chloride Carbon Dioxide BUN Creatinine Glucose POC Glucose 293 H Hemoglobin A1c Lactic Acid Ferritin 975.6 H Alkaline Phosphatase Lactate Dehydrogenase Troponin T C-Reactive Protein Albumin Arterial Blood Glucose Coronavirus (PCR) 07/08/20 07/08/20 07/08/20 08:59 11:39 17:57 WBC MCV MCH Plt Count Lymph % (Auto) Lymph # (Auto) Seg Neutrophils % Seg Neuts % (Manual) Lymphocytes % (Manual) Nucleated RBC % Seg Neutrophils # Seg Neutrophils # Man Lymphocytes # (Manual) INR D-Dimer ABG pH POC ABG pCO2 POC ABG pO2 ABG pO2 ABG O2 Saturation ABG Base Excess ABG Hemoglobin ABG Oxyhemoglobin ABG Glucose Oxyhemoglobin Carboxyhemoglobin Sodium Chloride Carbon Dioxide BUN Creatinine Glucose POC Glucose 270 H 285 H 221 H Hemoglobin A1c Lactic Acid Ferritin Alkaline Phosphatase Lactate Dehydrogenase Troponin T C-Reactive Protein Albumin Arterial Blood Glucose Coronavirus (PCR) 07/08/20 07/08/20 07/09/20 21:26 23:29 05:29 WBC MCV MCH Plt Count Lymph % (Auto) Lymph # (Auto) Seg Neutrophils % Seg Neuts % (Manual) Lymphocytes % (Manual) Nucleated RBC % Seg Neutrophils # Seg Neutrophils # Man Lymphocytes # (Manual) INR D-Dimer ABG pH POC ABG pCO2 POC ABG pO2 ABG pO2 ABG O2 Saturation ABG Base Excess ABG Hemoglobin ABG Oxyhemoglobin ABG Glucose Oxyhemoglobin Carboxyhemoglobin Sodium Chloride Carbon Dioxide BUN Creatinine Glucose POC Glucose 232 H 231 H 196 H Hemoglobin A1c Lactic Acid Ferritin Alkaline Phosphatase Lactate Dehydrogenase Troponin T C-Reactive Protein Albumin Arterial Blood Glucose Coronavirus (PCR) 07/09/20 07/09/20 07/09/20 06:51 06:51 12:10 WBC MCV MCH 26 L Plt Count Lymph % (Auto) 4.3 L Lymph # (Auto) 0.4 L Seg Neutrophils % Seg Neuts % (Manual) Lymphocytes % (Manual) 1.0 L Nucleated RBC % Seg Neutrophils # 9.1 H Seg Neutrophils # Man 9.8 H Lymphocytes # (Manual) 0.1 L INR D-Dimer ABG pH POC ABG pCO2 POC ABG pO2 ABG pO2 ABG O2 Saturation ABG Base Excess ABG Hemoglobin ABG Oxyhemoglobin ABG Glucose Oxyhemoglobin Carboxyhemoglobin Sodium 147 H Chloride 111.9 H Carbon Dioxide BUN 52 H Creatinine Glucose 207 H POC Glucose 176 H Hemoglobin A1c Lactic Acid Ferritin Alkaline Phosphatase Lactate Dehydrogenase Troponin T C-Reactive Protein Albumin 3.2 L Arterial Blood Glucose Coronavirus (PCR) 07/09/20 07/09/20 07/10/20 17:49 23:36 05:17 WBC MCV MCH Plt Count Lymph % (Auto) Lymph # (Auto) Seg Neutrophils % Seg Neuts % (Manual) Lymphocytes % (Manual) Nucleated RBC % Seg Neutrophils # Seg Neutrophils # Man Lymphocytes # (Manual) INR D-Dimer ABG pH POC ABG pCO2 POC ABG pO2 ABG pO2 ABG O2 Saturation ABG Base Excess ABG Hemoglobin ABG Oxyhemoglobin ABG Glucose Oxyhemoglobin Carboxyhemoglobin Sodium Chloride Carbon Dioxide BUN Creatinine Glucose POC Glucose 196 H 154 H 178 H Hemoglobin A1c Lactic Acid Ferritin Alkaline Phosphatase Lactate Dehydrogenase Troponin T C-Reactive Protein Albumin Arterial Blood Glucose Coronavirus (PCR) 07/10/20 07/10/20 07/10/20 05:25 05:25 05:25 WBC MCV MCH Plt Count Lymph % (Auto) Lymph # (Auto) Seg Neutrophils % Seg Neuts % (Manual) Lymphocytes % (Manual) Nucleated RBC % Seg Neutrophils # Seg Neutrophils # Man Lymphocytes # (Manual) INR D-Dimer 1786.87 H ABG pH POC ABG pCO2 POC ABG pO2 ABG pO2 ABG O2 Saturation ABG Base Excess ABG Hemoglobin ABG Oxyhemoglobin ABG Glucose Oxyhemoglobin Carboxyhemoglobin Sodium 152 H Chloride 112.8 H Carbon Dioxide BUN 60 H Creatinine Glucose 204 H POC Glucose Hemoglobin A1c Lactic Acid Ferritin 920.8 H Alkaline Phosphatase Lactate Dehydrogenase Troponin T C-Reactive Protein 2.80 H Albumin 3.3 L Arterial Blood Glucose Coronavirus (PCR) 07/10/20 07/10/20 07/10/20 05:25 12:39 17:56 WBC MCV MCH 27 L Plt Count Lymph % (Auto) Lymph # (Auto) Seg Neutrophils % Seg Neuts % (Manual) 92.0 H Lymphocytes % (Manual) 3.0 L Nucleated RBC % Seg Neutrophils # Seg Neutrophils # Man 9.5 H Lymphocytes # (Manual) 0.3 L INR D-Dimer ABG pH POC ABG pCO2 POC ABG pO2 ABG pO2 ABG O2 Saturation ABG Base Excess ABG Hemoglobin ABG Oxyhemoglobin ABG Glucose Oxyhemoglobin Carboxyhemoglobin Sodium Chloride Carbon Dioxide BUN Creatinine Glucose POC Glucose 174 H 177 H Hemoglobin A1c Lactic Acid Ferritin Alkaline Phosphatase Lactate Dehydrogenase Troponin T C-Reactive Protein Albumin Arterial Blood Glucose Coronavirus (PCR) 07/10/20 07/11/20 07/11/20 23:13 05:20 06:08 WBC MCV MCH Plt Count Lymph % (Auto) Lymph # (Auto) Seg Neutrophils % Seg Neuts % (Manual) Lymphocytes % (Manual) Nucleated RBC % Seg Neutrophils # Seg Neutrophils # Man Lymphocytes # (Manual) INR D-Dimer ABG pH POC ABG pCO2 POC ABG pO2 ABG pO2 ABG O2 Saturation ABG Base Excess ABG Hemoglobin ABG Oxyhemoglobin ABG Glucose Oxyhemoglobin Carboxyhemoglobin Sodium 159 H Chloride 120.9 H Carbon Dioxide BUN 57 H Creatinine Glucose 162 H POC Glucose 107 H 129 H Hemoglobin A1c Lactic Acid Ferritin Alkaline Phosphatase Lactate Dehydrogenase Troponin T C-Reactive Protein Albumin 3.0 L Arterial Blood Glucose Coronavirus (PCR) 07/11/20 07/11/20 07/11/20 12:08 17:21 23:20 WBC MCV MCH Plt Count Lymph % (Auto) Lymph # (Auto) Seg Neutrophils % Seg Neuts % (Manual) Lymphocytes % (Manual) Nucleated RBC % Seg Neutrophils # Seg Neutrophils # Man Lymphocytes # (Manual) INR D-Dimer ABG pH POC ABG pCO2 POC ABG pO2 ABG pO2 ABG O2 Saturation ABG Base Excess ABG Hemoglobin ABG Oxyhemoglobin ABG Glucose Oxyhemoglobin Carboxyhemoglobin Sodium Chloride Carbon Dioxide BUN Creatinine Glucose POC Glucose 238 H 240 H 176 H Hemoglobin A1c Lactic Acid Ferritin Alkaline Phosphatase Lactate Dehydrogenase Troponin T C-Reactive Protein Albumin Arterial Blood Glucose Coronavirus (PCR) 07/12/20 07/12/20 07/12/20 01:55 05:16 05:18 WBC 12.6 H MCV MCH 26 L Plt Count Lymph % (Auto) Lymph # (Auto) Seg Neutrophils % Seg Neuts % (Manual) 93.0 H Lymphocytes % (Manual) 4.0 L Nucleated RBC % Seg Neutrophils # Seg Neutrophils # Man 11.7 H Lymphocytes # (Manual) 0.5 L INR D-Dimer ABG pH POC ABG pCO2 POC ABG pO2 ABG pO2 ABG O2 Saturation ABG Base Excess ABG Hemoglobin ABG Oxyhemoglobin ABG Glucose Oxyhemoglobin Carboxyhemoglobin Sodium 151 H D Chloride 115.5 H Carbon Dioxide BUN 52 H Creatinine Glucose 250 H POC Glucose 202 H Hemoglobin A1c Lactic Acid Ferritin Alkaline Phosphatase Lactate Dehydrogenase Troponin T C-Reactive Protein Albumin Arterial Blood Glucose Coronavirus (PCR) 07/12/20 07/12/20 07/12/20 05:18 11:50 17:25 WBC MCV MCH Plt Count Lymph % (Auto) Lymph # (Auto) Seg Neutrophils % Seg Neuts % (Manual) Lymphocytes % (Manual) Nucleated RBC % Seg Neutrophils # Seg Neutrophils # Man Lymphocytes # (Manual) INR D-Dimer ABG pH POC ABG pCO2 POC ABG pO2 ABG pO2 ABG O2 Saturation ABG Base Excess ABG Hemoglobin ABG Oxyhemoglobin ABG Glucose Oxyhemoglobin Carboxyhemoglobin Sodium 152 H Chloride 113.7 H Carbon Dioxide BUN 50 H Creatinine Glucose 232 H POC Glucose 218 H 130 H Hemoglobin A1c Lactic Acid Ferritin Alkaline Phosphatase Lactate Dehydrogenase Troponin T C-Reactive Protein Albumin Arterial Blood Glucose Coronavirus (PCR) 07/12/20 07/13/20 07/13/20 23:17 04:39 04:39 WBC MCV MCH 26 L Plt Count Lymph % (Auto) Lymph # (Auto) Seg Neutrophils % Seg Neuts % (Manual) Lymphocytes % (Manual) Nucleated RBC % Seg Neutrophils # Seg Neutrophils # Man Lymphocytes # (Manual) INR D-Dimer ABG pH POC ABG pCO2 POC ABG pO2 ABG pO2 ABG O2 Saturation ABG Base Excess ABG Hemoglobin ABG Oxyhemoglobin ABG Glucose Oxyhemoglobin Carboxyhemoglobin Sodium Chloride 109.4 H Carbon Dioxide BUN 44 H Creatinine Glucose 281 H POC Glucose 161 H Hemoglobin A1c Lactic Acid Ferritin Alkaline Phosphatase Lactate Dehydrogenase Troponin T C-Reactive Protein Albumin Arterial Blood Glucose Coronavirus (PCR) 07/13/20 07/13/20 07/13/20 05:16 11:56 15:50 WBC MCV MCH Plt Count Lymph % (Auto) Lymph # (Auto) Seg Neutrophils % Seg Neuts % (Manual) Lymphocytes % (Manual) Nucleated RBC % Seg Neutrophils # Seg Neutrophils # Man Lymphocytes # (Manual) INR D-Dimer ABG pH POC ABG pCO2 POC ABG pO2 ABG pO2 73.7 L ABG O2 Saturation 94.5 L ABG Base Excess -2.9 L ABG Hemoglobin 9.6 L ABG Oxyhemoglobin ABG Glucose Oxyhemoglobin 92.8 L Carboxyhemoglobin Sodium Chloride Carbon Dioxide BUN Creatinine Glucose POC Glucose 210 H 229 H Hemoglobin A1c Lactic Acid Ferritin Alkaline Phosphatase Lactate Dehydrogenase Troponin T C-Reactive Protein Albumin Arterial Blood Glucose Coronavirus (PCR) 07/13/20 07/13/20 07/14/20 17:35 23:29 03:57 WBC MCV MCH Plt Count Lymph % (Auto) Lymph # (Auto) Seg Neutrophils % Seg Neuts % (Manual) Lymphocytes % (Manual) Nucleated RBC % Seg Neutrophils # Seg Neutrophils # Man Lymphocytes # (Manual) INR D-Dimer ABG pH POC ABG pCO2 POC ABG pO2 63.2 L ABG pO2 ABG O2 Saturation ABG Base Excess ABG Hemoglobin 11.8 L ABG Oxyhemoglobin ABG Glucose 148 H Oxyhemoglobin Carboxyhemoglobin Sodium Chloride Carbon Dioxide BUN Creatinine Glucose POC Glucose 277 H 173 H Hemoglobin A1c Lactic Acid Ferritin Alkaline Phosphatase Lactate Dehydrogenase Troponin T C-Reactive Protein Albumin Arterial Blood Glucose 148 H Coronavirus (PCR) 07/14/20 07/14/20 07/14/20 04:31 04:31 05:11 WBC MCV MCH 26 L Plt Count 134 L Lymph % (Auto) Lymph # (Auto) Seg Neutrophils % Seg Neuts % (Manual) Lymphocytes % (Manual) Nucleated RBC % Seg Neutrophils # Seg Neutrophils # Man Lymphocytes # (Manual) INR D-Dimer ABG pH POC ABG pCO2 POC ABG pO2 ABG pO2 ABG O2 Saturation ABG Base Excess ABG Hemoglobin ABG Oxyhemoglobin ABG Glucose Oxyhemoglobin Carboxyhemoglobin Sodium Chloride Carbon Dioxide 21 L BUN 66 H Creatinine Glucose 139 H POC Glucose 126 H Hemoglobin A1c Lactic Acid Ferritin Alkaline Phosphatase Lactate Dehydrogenase Troponin T C-Reactive Protein Albumin Arterial Blood Glucose Coronavirus (PCR)
--- NOTE | 2020-07-14 16:32 | Progress Note ---
<JONASPAULETTE H. - Last Filed: 07/14/20 16:26> Assessment and Plan Assessment and plan: Sepsis -Presented with hypoxia, tachypnea and acute hypoxic respiratory failure, acute kidney injury, pneumonia on CXR and COVID-19 infection -07/06 blood cultures x2 no growth to date -s/p Antibiotic therapy -Infectious disease consulted, appreciate recommendations -Stress dose steroids COVID-19 infection -07/06 CXR shows diffuse hazy bilateral lung opacities concerning for viral infection, atypical pneumonia or pulmonary edema with no pleural effusions or pneumothorax -07/06 COVID-19 PCR positive -07/05 COVID-19 PCR at outside facility positive -Infectious disease and pulmonology consulted, appreciate recommendations -Contact/droplet isolation -Pulmonary hygiene -Supplemental oxygen as needed -S/p antibiotic therapy -07/07-07/12 s/p remdesivir therapy -S/p steroid therapy for COVID-19 infection -OOB 3 times daily -Prone to sleep as needed -Anticoagulation per protocol -Vitamin C, vitamin D and zinc -SPO2 monitoring Bilateral pneumonia -07/06 CXR shows diffuse hazy bilateral lung opacities concerning for viral infection, atypical pneumonia or pulmonary edema with no pleural effusions or pneumothorax -Secondary to COVID-19 infection -s/p Antibiotic therapy -Infectious disease consulted, appreciate recommendation -07/06 blood cultures x2 no growth to date Acute hypoxic respiratory failure -Room air SPO2 75% and placed on high flow nasal cannula -Pulmonary consulted, patient recommendations -Steroid therapy -Supplemental oxygen as needed -Pulmonary hygiene -SPO2 monitoring -07/13 patient was electively intubated Bilateral pneumothorax -Evidenced on CXR -General surgery consulted for placement of bilateral chest tubes Hyperchloremia -07/09 chloride 111 which trended up to 120 -Trend BMP Elevated D-dimer -Admit D-dimer 1435 -07/06 nuclear medicine perfusion study shows low probability of pulmonary embolism -07/06 bilateral lower extremity Doppler ultrasound negative for DVT/SVT Elevated troponin/SB -Presented with a troponin of 0.034 -07/06 troponin less than 0.10 -Cardiology consulted, appreciate recommendations -EKG as needed -No complaints of chest pain -Cardiology believes elevated troponin is in setting of acute kidney injury Hypertension -Titrate Antihypertensives as needed -Hydralazine as needed for SBP greater than 160 -Blood pressure monitoring per protocol Diabetes mellitus -07/06 hemoglobin A1c 11.8 -SSI -CC cardiac diet -Accu-Cheks AC at bedtime -Hypoglycemia protocol -07/06 70/30 initiated, titrate as needed DVT prophylaxis -Heparin subcu -GI prophylaxis -SCDs to bilateral lower extremities while in bed Acute kidney injury, resolved -12/2016 creatinine/BUN 0.9/15 -Presented with a creatinine/BUN 1.6/45 -Trend BMP -Consider nephrology consult if not improving -07/13 BUN/creatinine 44/0.9 -Secondary to vasomotor nephropathy History Interval history: This is a 69-year-old Laotian female with limited Gabonese with hypertension, diabetes mellitus, hyperlipidemia who presented to the hospital on 07/06 via EMS with worsening subjective fevers, headache, body ache, dry cough, dyspnea on exertion, fatigue, headache and nausea since the last week end of May. Patient had a positive COVID-19 PCR on 07/05 as outside facility. Upon arrival to the emergency department patient was hypoxic on room air at 75% and tachypneic. Work-up in the emergency department with a CXR which showed bilateral pneumonia, lactic acidosis at 2.3, acute kidney injury at 1.6/45, elevated D-dimer, elevated troponin and slight hyponatremia 136. Patient received Rocephin, azithromycin and Decadron in the emergency department. Patient was admitted to the hospitalist service as a COVID-19 PUI, acute kidney injury, sepsis, lactic acidosis, and elevated D-dimer with consults to pulmonology and infectious disease. 07/06: COVID-19 PCR positive, azithromycin and Rocephin, Decadron and remdesivir therapy 07/07: Patient is on 100% FiO2 BiPAP therapy with SPO2 in the low 90s and high 80s, hypoxia and ABG, sinus bradycardia noted overnight. Repeat CXR shows persistent diffuse pulmonary process and pulmonary edema therefore she received 40 mg of Lasix x1 and a proBNP is pending per [facility] 07/08: Patient remains on antibiotic therapy, kidney function tests have not worsened, sinus bradycardia still persist and steroid dosing was increased today by [facility]. Patient's daughter was updated today 07/09: Overnight it was noted that the patient developed bilateral small pneumot horax on AM CXR. She still remains on 100% FiO2 via Bipap and her ABG shows hypoxia. Her steroid therapy was changed per [facility] and she received lasix x1 today. 07/10: Still remains hypoxic on BiPAP. Labs reviewed-sodium 152 today. Hold off on IV fluids for today due to ongoing respiratory difficulty. Trend sodium for now and if elevated tomorrow we will start on hypotonic solution. Possible intubation in the next 24 hours if no improvement in respiratory status. Critical care on board 07/11. Her oxygen sats remains stable. Plan to switch to HFNC to see if she tolerated. Started on D5W due to worsening hyponatremia and lethargy. BMP q6 hr ordered 07/12: Patient remains on BiPAP as she was unable to maintain her oxygenation on HFNC, remains hypernatremic and hyperchloremic although improving. 07/13: CXR from this a.m. showed increase in bilateral pneumothorax size, patient was electively intubated and placed on mechanical ventilation. Surgery was consulted for placement of bilateral chest tubes. Patient's hypernatremia, leukocytosis, hyperchloremia has improved. NG tube placed and nutrition consulted. She remains hyperglycemic and her insulin dose was adjusted. 07/14: Patient's leukocytosis, hyponatremia and hypochloremia has resolved today she has metabolic acidosis and hypoxia on ABG therefore her PEEP has been increased. Patient still remains sedated on propofol and fentanyl. Bilateral chest tubes are to wall suction with minimal to no drainage. No acute events reported overnight. Hospitalist Physical - Constitutional Vitals: Temp Pulse Resp BP Pulse Ox 97.9 F 87 30 H 97/65 91 07/14/20 16:00 07/14/20 16:00 07/14/20 16:00 07/14/20 16:00 07/14/20 16:00 General appearance: Present: mild distress, obese HEART Score - HEART Score Troponin: Troponin T < 0.010 ng/mL (0.00-0.029) 07/07/20 00:22 Results - Labs CBC & Chem 7: 07/14/20 04:31 07/14/20 04:31 Labs: Laboratory Last Values WBC 9.5 K/mm3 (4.5-11.0) 07/14/20 04:31 RBC 4.35 M/mm3 (3.65-5.03) 07/14/20 04:31 Hgb 11.3 gm/dl (10.1-14.3) 07/14/20 04:31 Hct 34.5 % (30.3-42.9) 07/14/20 04:31 MCV 79 fl (79-97) 07/14/20 04:31 MCH 26 pg (28-32) L 07/14/20 04:31 MCHC 33 % (30-34) 07/14/20 04:31 RDW 14.7 % (13.2-15.2) 07/14/20 04:31 Plt Count 134 K/mm3 (140-440) L 07/14/20 04:31 Lymph % (Auto) 4.3 % (13.4-35.0) L 07/09/20 06:51 [place] % (Auto) 3.6 % (0.0-7.3) 07/09/20 06:51 Eos % (Auto) 0.6 % (0.0-4.3) 07/09/20 06:51 Baso % (Auto) 0.3 % (0.0-1.8) 07/09/20 06:51 Lymph # (Auto) 0.4 K/mm3 (1.2-5.4) L 07/09/20 06:51 [place] # (Auto) 0.4 K/mm3 (0.0-0.8) 07/09/20 06:51 Eos # (Auto) 0.1 K/mm3 (0.0-0.4) 07/09/20 06:51 Baso # (Auto) 0.0 K/mm3 (0.0-0.1) 07/09/20 06:51 Add Manual Diff Complete 07/12/20 05:18 Total Counted 100 07/12/20 05:18 Seg Neutrophils % [employer] 07/12/20 05:18 Seg Neuts % (Manual) 93.0 % (40.0-70.0) H 07/12/20 05:18 Band Neutrophils % 4.0 % 07/07/20 02:42 Lymphocytes % (Manual) 4.0 % (13.4-35.0) L 07/12/20 05:18 Monocytes % (Manual) 3.0 % (0.0-7.3) 07/12/20 05:18 Metamyelocytes % 1.0 % 07/10/20 05:25 Nucleated RBC % Not Reportable 07/12/20 05:18 Seg Neutrophils # 9.1 K/mm3 (1.8-7.7) H 07/09/20 06:51 Seg Neutrophils # Man 11.7 K/mm3 (1.8-7.7) H 07/12/20 05:18 Band Neutrophils # 0.0 K/mm3 07/12/20 05:18 Lymphocytes # (Manual) 0.5 K/mm3 (1.2-5.4) L 07/12/20 05:18 Abs React Lymphs (Man) 0.0 K/mm3 07/12/20 05:18 Monocytes # (Manual) 0.4 K/mm3 (0.0-0.8) 07/12/20 05:18 Eosinophils # (Manual) 0.0 K/mm3 (0.0-0.4) 07/12/20 05:18 Basophils # (Manual) 0.0 K/mm3 (0.0-0.1) 07/12/20 05:18 Metamyelocytes # 0.0 K/mm3 07/12/20 05:18 Myelocytes # 0.0 K/mm3 07/12/20 05:18 Promyelocytes # 0.0 K/mm3 07/12/20 05:18 Blast Cells # 0.0 K/mm3 07/12/20 05:18 WBC Morphology Not Reportable 07/12/20 05:18 Hypersegmented Neuts Not Reportable 07/12/20 05:18 Hyposegmented Neuts Not Reportable 07/12/20 05:18 Hypogranular Neuts Not Reportable 07/12/20 05:18 Smudge Cells Not Reportable 07/12/20 05:18 Toxic Granulation Not Reportable 07/12/20 05:18 Toxic Vacuolation Not Reportable 07/12/20 05:18 Dohle Bodies Not Reportable 07/12/20 05:18 Pelger-Huet Anomaly Not Reportable 07/12/20 05:18 Rudy Rods Not Reportable 07/12/20 05:18 Platelet Estimate Consistent w auto 07/12/20 05:18 Clumped Platelets Not Reportable 07/12/20 05:18 Plt Clumps, EDTA Not Reportable 07/12/20 05:18 Large Platelets Not Reportable 07/12/20 05:18 Giant Platelets Not Reportable 07/12/20 05:18 Platelet Satelliting Not Reportable 07/12/20 05:18 Plt Morphology Comment Not Reportable 07/12/20 05:18 RBC Morphology Not Reportable 07/12/20 05:18 Dimorphic RBCs Not Reportable 07/12/20 05:18 Polychromasia Not Reportable 07/12/20 05:18 Hypochromasia Not Reportable 07/12/20 05:18 Poikilocytosis Not Reportable 07/12/20 05:18 Anisocytosis 1+ 07/12/20 05:18 Microcytosis Not Reportable 07/12/20 05:18 Macrocytosis Not Reportable 07/12/20 05:18 Spherocytes Not Reportable 07/12/20 05:18 Pappenheimer Bodies Not Reportable 07/12/20 05:18 Sickle Cells Not Reportable 07/12/20 05:18 Target Cells Not Reportable 07/12/20 05:18 Tear Drop Cells Not Reportable 07/12/20 05:18 Ovalocytes Not Reportable 07/12/20 05:18 Helmet Cells Not Reportable 07/12/20 05:18 [place] Bodies Not Reportable 07/12/20 05:18 Anchor Rings Not Reportable 07/12/20 05:18 [place] Cells Not Reportable 07/12/20 05:18 Bite Cells Not Reportable 07/12/20 05:18 Crenated Cell Not Reportable 07/12/20 05:18 Elliptocytes Not Reportable 07/12/20 05:18 Acanthocytes (Spur) Not Reportable 07/12/20 05:18 Rouleaux Not Reportable 07/12/20 05:18 Hemoglobin C Crystals Not Reportable 07/12/20 05:18 Schistocytes Not Reportable 07/12/20 05:18 Malaria parasites Not Reportable 07/12/20 05:18 Shreyas Bodies Not Reportable 07/12/20 05:18 Hem Pathologist Commnt No 07/12/20 05:18 PT 14.7 Sec. (12.2-14.9) 07/06/20 08:50 INR 1.15 (0.87-1.13) H 07/06/20 08:50 APTT 25.9 Sec. (24.2-36.6) 07/06/20 08:50 D-Dimer 1786.87 ng/mlDDU (0-234) H 07/10/20 05:25 ABG pH 7.398 (7.320-7.450) 07/14/20 03:57 POC ABG pCO2 32.8 mmHg (32.0-48.0) 07/14/20 03:57 ABG pCO2 32.9 mm Hg 07/13/20 15:50 POC ABG pO2 63.2 mmHg (83-108) L 07/14/20 03:57 ABG pO2 73.7 mm Hg (80.0-90.0) L 07/13/20 15:50 POC ABG HCO3 19.8 07/14/20 03:57 ABG HCO3 21.0 mmol/L (20.0-26.0) 07/13/20 15:50 ABG O2 Saturation 94.5 % (95.0-99.0) L 07/13/20 15:50 ABG O2 Content 12.6 (0.0-44) 07/13/20 15:50 POC ABG Base Excess -4.2 07/14/20 03:57 ABG Base Excess -2.9 mmol/L (-2.0-3.0) L 07/13/20 15:50 ABG Hemoglobin 11.8 (12.0-17.5) L 07/14/20 03:57 ABG Oxyhemoglobin 88.3 (94-98) L 07/07/20 02:19 ABG Carboxyhemoglobin 1.3 % (0.0-5.0) 07/13/20 15:50 ABG Methemoglobin 0.5 % (0.0-1.5) 07/13/20 15:50 ABG Sodium 136.5 mmol/L (136.0-145.0) 07/14/20 03:57 ABG Potassium 3.7 mmol/L (3.40-4.50) 07/14/20 03:57 ABG Chloride 107.0 mmol/L (98-107) 07/14/20 03:57 ABG Glucose 148 mg/dL (65-95) H 07/14/20 03:57 Oxyhemoglobin 92.8 % (95.0-99.0) L 07/13/20 15:50 Carboxyhemoglobin 0.2 (0.5-1.5) L 07/07/20 02:19 FiO2 100 07/14/20 03:57 Sodium 142 mmol/L (137-145) 07/14/20 04:31 Potassium 4.0 mmol/L (3.6-5.0) 07/14/20 04:31 Chloride 106.8 mmol/L (98-107) 07/14/20 04:31 Carbon Dioxide 21 mmol/L (22-30) L 07/14/20 04:31 Anion Gap 18 mmol/L 07/14/20 04:31 BUN 66 mg/dL (7-17) H 07/14/20 04:31 Creatinine 1.2 mg/dL (0.6-1.2) 07/14/20 04:31 Estimated GFR 44 ml/min 07/14/20 04:31 BUN/Creatinine Ratio 55 % 07/14/20 04:31 Glucose 139 mg/dL (65-100) H 07/14/20 04:31 POC Glucose 181 mg/dL (70-105) H 07/14/20 11:54 Hemoglobin A1c 11.8 % (4-6) H 07/06/20 15:44 Lactic Acid 1.60 mmol/L (0.7-2.0) 07/07/20 08:55 Calcium 9.2 mg/dL (8.4-10.2) 07/14/20 04:31 Ferritin 920.8 ng/mL (10.0-200.0) H 07/10/20 05:25 Total Bilirubin 1.00 mg/dL (0.1-1.2) 07/11/20 06:08 AST 38 units/L (5-40) 07/11/20 06:08 ALT 24 units/L (7-56) 07/11/20 06:08 Alkaline Phosphatase 107 units/L (35-129) 07/11/20 06:08 Lactate Dehydrogenase 683 units/L (91-180) H 07/06/20 15:44 Total Creatine Kinase 47 units/L (30-135) 07/07/20 00:22 CK-MB (CK-2) 1.6 ng/mL (0.0-4.0) 07/07/20 00:22 CK-MB (CK-2) Rel Index 3.4 (0-4) 07/07/20 00:22 Troponin T < 0.010 ng/mL (0.00-0.029) 07/07/20 00:22 C-Reactive Protein 2.80 mg/dL (0.00-1.30) H 07/10/20 05:25 NT-Pro-B Natriuret Pep 459.9 pg/mL (0-900) 07/07/20 14:31 Total Protein 6.8 g/dL (6.3-8.2) 07/11/20 06:08 Albumin 3.0 g/dL (3.9-5) L 07/11/20 06:08 Albumin/Globulin Ratio 0.8 % 07/11/20 06:08 Procalcitonin 7.48 ng/mL (<0.15) 07/06/20 15:44 TSH 0.420 mlU/mL (0.270-4.200) 07/08/20 05:07 Arterial Blood Glucose 148 mg/dL (65-95) H 07/14/20 03:57 Arterial Blood Ionized Calcium 5.1 mg/dL (4.6-5.3) 07/14/20 03:57 Urine Color Yellow (Yellow) 07/07/20 03:35 Urine Turbidity Clear (Clear) 07/07/20 03:35 Urine pH 5.0 (5.0-7.0) 07/07/20 03:35 Ur Specific Burt 1.026 (1.003-1.030) 07/07/20 03:35 Urine Protein 30 mg/dl mg/dL (Negative) 07/07/20 03:35 Urine Glucose (UA) >=500 mg/dL (Negative) 07/07/20 03:35 Urine Ketones Neg mg/dL (Negative) 07/07/20 03:35 Urine Blood Neg (Negative) 07/07/20 03:35 Urine Nitrite Neg (Negative) 07/07/20 03:35 Urine Bilirubin Neg (Negative) 07/07/20 03:35 Urine Urobilinogen 2.0 mg/dL (<2.0) 07/07/20 03:35 Ur Leukocyte Esterase Neg (Negative) 07/07/20 03:35 Urine WBC (Auto) < 1.0 /HPF (0.0-6.0) 07/07/20 03:35 Urine RBC (Auto) 0.0 /HPF (0.0-6.0) 07/07/20 03:35 U Epithel Cells (Auto) < 1.0 /HPF (0-13.0) 07/07/20 03:35 Urine Bacteria (Auto) 1+ /HPF (Negative) 07/07/20 03:35 Urine Osmolality 731 Mosm/kg 07/07/20 03:35 Urine Sodium 54 mmol/L 07/07/20 03:35 Coronavirus (PCR) Positive (Negative) A 07/06/20 09:26 - Diagnostic Impressions Diagnostic Impressions: Echocardiogram 07/08/20 09:36 Transthoracic Echocardiogram Indication: Chest pain BP: 129/66 HR: 67 Conclusions *The study is technically limited due to poor acoustic windows. *Global left ventricular systolic function is normal. *The estimated ejection fraction is greater than 55-60%. *Mild concentric left ventricular hypertrophy is observed. *There is trace of mitral regurgitation. *The right heart chambers are not well visualized. Findings Procedure Info: The study quality is poor. The study is technically limited due to poor acoustic windows. Left Ventricle: The left ventricular chamber size is normal. Mild concentric left ventricular hypertrophy is observed. Global left ventricular systolic function is normal. The estimated ejection fraction is 55-60%. Left Atrium: The left atrial chamber size is normal. Right Ventricle: The right ventricle is not well visualized. Right Atrium: The right atrium is not well visualized. Aortic Valve: The aortic valve leaflets are mildly thickened. There is no evidence of aortic regurgitation. There is no evidence of aortic stenosis. Mitral Valve: The mitral valve leaflets are mildly thickened. There is trace of mitral regurgitation. There is no evidence of mitral stenosis. Tricuspid Valve: The tricuspid valve is not well visualized. Pulmonic Valve: The pulmonic valve is not well visualized. Pericardium: There is no pericardial effusion. Aorta: There is no dilatation of the aortic root. Venous: The inferior vena cava appears normal in size. Measurements Chambers 2D Name Value Normal Range IVSd (2D) 1.02 cm (0.6 - 1.1) LVPWd (2D) 1.02 cm (0.6 - 1.1) LVIDd (2D) 4.88 cm (3.7 - 5.6) LVIDs (2D) 3.22 cm (2 - 3.8) LV FS (2D) 33.94 % - EF Teichholz (2D) 62.68 % - Ao root diameter (2D) 2.8 cm (2 - 3.7) Diastolic/Systolic Function Name Value Normal Range MV E-wave Vmax 0.37 m/sec - MV deceleration time 185.21 msec - MV A-wave Vmax 0.35 m/sec - MV E:A ratio 1.07 ratio - Aortic Valve Name Value Normal Range AV Vmax 1.29 m/sec - AV VTI 24.04 cm - AV peak gradient 6.69 mmHg - AV mean gradient 3.19 mmHg - LVOT diameter 2.01 cm - LVOT Vmax 1.07 m/sec - LVOT VTI 21.78 cm - LVOT peak gradient 4.56 mmHg - LVOT mean gradient 2.37 mmHg - SV LVOT 69.26 ml - LEOBARDO (continuity Vmax) 2.63 cm2 - LEOBARDO (continuity VTI) 2.88 cm2 - Pulmonic Valve/Qp:Qs Name Value Normal Range PV acceleration time 95.15 msec - Beal/IV: Voiding Method Incontinent Active Medications - Current Medications Current Medications: Generic Name Dose Route Start Last Admin Trade Name Freq PRN Reason Stop Dose Admin Acetaminophen 650 mg 07/06/20 11:01 07/09/20 16:35 Acetaminophen 325 Mg Tab PO 650 mg Q4H PRN Administration Pain MILD(1-3)/Fever >100.5/OHARA Acetaminophen 650 mg 07/08/20 01:34 07/08/20 02:04 Acetaminophen 650 Mg Rect Supp NE 650 mg Q4H PRN Administration PainMild (1-3),fever>100.5,OHARA Al Hydrox/Mg Hydrox/Simethicone 30 ml 07/06/20 11:01 Alum-Mag Hydroxide-Simethicone [id number]/5ml Oral Liqd 30 Ml PO Q4H PRN Indigestion Lipase/Protease/Amylase 1 each 07/13/20 11:45 Lipase 10,500/Protease 25,000/Amylase 43,750 (Units) Dr Juárez FEEDTUBE PRN PRN For Clogged Feeding Tube Ascorbic Acid 500 mg 07/06/20 16:00 07/14/20 09:01 Ascorbic Acid 500 Mg Tab PO 500 mg QDAY MITALI Administration Dextrose 50 ml 07/06/20 11:01 Dextrose 50% In Water (25gm) 50 Ml Syringe IV Q30MIN PRN Hypoglycemia Protocol Docusate Sodium 100 mg 07/14/20 10:00 07/14/20 09:00 Docusate Sodium 100 Mg/10 Ml Oral Liqd FEEDTUBE 100 mg BID MITALI Administration Famotidine 20 mg 07/07/20 10:00 07/14/20 09:01 Famotidine 20 Mg/2 Ml Inj IV 20 mg DAILY MITALI Administration Fentanyl 50 mcg 07/13/20 10:23 Fentanyl 100 Mcg/2 Ml Inj IV Q10MIN PRN ANALGESIA Haloperidol Lactate 5 mg 07/10/20 09:00 07/13/20 03:27 Haloperidol Lactate 5 Mg/1 Ml Inj IV 5 mg Q6H PRN Administration Agitation Heparin Sodium (Porcine) 7,500 unit 07/07/20 14:00 07/14/20 13:36 Heparin 5,000 Unit/1 Ml Vial SUB-Q 7,500 unit Q8HR MITALI Administration Hydralazine HCl 10 mg 07/07/20 07:28 Hydralazine 20 Mg/1 Ml Inj IV Q4HR PRN Hypertension Hydrophilic Ointment 1 applic 07/13/20 10:23 Lip Therapy Vaseline TP Q2HR PRN Dry Lips Fentanyl Citrate 2,000 mcg in 100 mls @ 3.475 mls/hr 07/13/20 11:00 07/14/20 13:37 Fentanyl Drip Premix IV 2 mcg/kg/hr TITR MITALI 6.95 mls/hr Titration Protocol 1 MCG/KG/HR Propofol 1,000 mg in 100 mls @ 2.085 mls/hr 07/13/20 11:00 07/14/20 06:32 Diprivan 10 Mg/Ml IV 5 mcg/kg/min TITR MITALI 2.085 mls/hr Administration Protocol 5 MCG/KG/MIN Insulin Human Isoph/Insulin Regular 18 unit 07/13/20 12:39 07/14/20 11:18 Insulin Nph/Regular 70/30 Inj SUB-Q Not Given BIDDIAB MITALI Insulin Human Lispro 0 unit 07/07/20 09:00 07/14/20 13:37 Insulin Lispro 100 Unit/Ml SUB-Q 3 unit Q6HR MITALI Administration Protocol Lorazepam 0.5 mg 07/08/20 11:00 07/13/20 07:44 Lorazepam 2 Mg/Ml Vial IV 0.5 mg Q4H PRN Administration Anxiety Methylprednisolone Sodium Succinate 60 mg 07/08/20 13:00 07/14/20 13:36 Methylprednisolone Sod Succinate 125 Mg/2 Ml Inj IV 60 mg Q6HR MITALI Administration Multi-Ingred Cream/Lotion/Oil/Oint 1 applic 07/13/20 10:23 Mineral Oil/Petrolatum, White Ophth Oint 3.5 Gm OU Q4HR PRN Dry Eye(s) Ondansetron HCl 4 mg 07/06/20 11:01 Ondansetron 4 Mg/2 Ml Inj IV Q8H PRN Nausea And Vomiting Oxycodone/Acetaminophen 1 tab 07/06/20 11:01 Oxycodone /Acetaminophen 5-325mg Tab PO Q6H PRN Pain, Moderate (4-6) Senna 8.6 mg 07/06/20 22:00 07/14/20 09:01 Sennosides 8.6 Mg Tab PO 8.6 mg Q12HR MITALI Administration Simple Syrup 15 ml 07/13/20 11:45 Simple Syrup 15 Ml FEEDTUBE PRN PRN Hypoglycemia Simple Syrup 30 ml 07/13/20 11:45 Simple Syrup 15 Ml FEEDTUBE PRN PRN Hypoglycemia Sodium Bicarbonate 325 mg 07/13/20 11:45 Sodium Bicarbonate 325 Mg Tab FEEDTUBE PRN PRN For Clogged Feeding Tube Sodium Chloride 10 ml 07/06/20 22:00 07/14/20 09:01 Sodium Chloride 0.9% 10 Ml Flush Syringe IV 10 ml BID MITALI Administration Sodium Chloride 10 ml 07/06/20 11:01 Sodium Chloride 0.9% 10 Ml Flush Syringe IV PRN PRN LINE FLUSH Zinc Sulfate 220 mg 07/06/20 16:00 07/14/20 09:01 Zinc Sulfate 220 Mg Cap PO 220 mg QDAY MITALI Administration Nutrition/Malnutrition Assess - Dietary Evaluation Nutrition/Malnutrition Findings: Nutrition Notes Start: 07/13/20 10:55 Freq: Status: Active Protocol: Document 07/13/20 10:55 AL (Rec: 07/13/20 11:37 AL [id number]) Co-Sign 07/13/20 10:55 LP Nutrition Notes Need for Assessment generated from: MD Order Initial or Follow up Assessment Current Diagnosis Acute Kidney Injury,Diabetes, Hypertension,Hyperlipidemia Other Pertinent Diagnosis COVID-19 (+) Current Diet Full Liquid Labs/Tests BG 281 BUN 44 Pertinent Medications Solumedrol D5w at 42 ml/hr Height 5 ft 2 in Weight 69.5 kg [place] Body Weight (kg) 50.00 BMI 28.0 Subjective/Other Information Consult for TF. Pt was on full liquid diet, but now is being intubated. Percent of energy/protein needs met: 0%/0% Burn Absent Trauma Absent Current % PO Negligible Minimum of two criteria No physical signs of malnutrition #1 Nutrition Diagnosis Inadequate oral intake Etiology acute respiratory failure As Evidenced by Signs and Symptoms pt unable to consume po d/t mechanical vent. Is patient on ventilator? Yes Is Patient Ambulatory and/or Out of Bed No REE-([place]-[facility] [facility]-confined to bed) [phone] Calculation Used for Recommendations [place]-[facility] Additional Notes Pro: 83-139 g (1.2-2.0 kcal/kg ) Fluid: 1 ml/kcal or per MD order Nutrition Intervention Change Diet Order: TF Nutrition Support: Vital AF 1.2 at 50 ml/hr Flush 100 ml/hr Kcal 1,440 Protein (gm) 90 Fluid (mL) 1,003 Goal #1 Tube Feed tolerance Goal #2 Meet at least 75% of total energy and protein needs Anticipated Discharge Needs: Unable to determine at this time Follow-Up By: 07/15/20 Additional Comments F/U for TF start, tolerance, and for renal labs. <PONCE MOREJON R - Last Filed: 07/17/20 12:45> History Interval history: I saw and evaluated the patient. I agree with the findings and the plan of care as documented in the Nurse Practitioner's~note, with the following corrections and additions. The high probability of a clinically significant, sudden or life threatening deterioration of the [CNC, CVS, respiratory, renal] system(s) required my full and direct attention, intervention and personal management. The aggregate critical care time was [35] minutes. This time is in addition to time spent performing reported procedures but includes the following: [x] Data Review and interpretation [x] Patient assessment and monitoring of vital signs [x] Documentation [x] Medication orders and management Hospitalist Physical - Constitutional Vitals: Temp Pulse Resp BP Pulse Ox 99.0 F 109 H 30 H 103/58 93 07/17/20 12:00 07/17/20 12:00 07/17/20 12:00 07/17/20 12:00 07/17/20 12:00 HEART Score - HEART Score Troponin: Troponin T < 0.010 ng/mL (0.00-0.029) 07/07/20 00:22 Results - Labs CBC & Chem 7: 07/17/20 Unknown 07/17/20 Unknown Labs: Laboratory Last Values WBC 14.1 K/mm3 (4.5-11.0) H 07/17/20 Unknown RBC 3.84 M/mm3 (3.65-5.03) 07/17/20 Unknown Hgb 9.8 gm/dl (10.1-14.3) L 07/17/20 Unknown Hct 31.6 % (30.3-42.9) 07/17/20 Unknown MCV 82 fl (79-97) 07/17/20 Unknown MCH 26 pg (28-32) L 07/17/20 Unknown MCHC 31 % (30-34) 07/17/20 Unknown RDW 15.8 % (13.2-15.2) H 07/17/20 Unknown Plt Count 74 K/mm3 (140-440) L 07/17/20 Unknown Lymph % (Auto) 4.3 % (13.4-35.0) L 07/09/20 06:51 [place] % (Auto) 3.6 % (0.0-7.3) 07/09/20 06:51 Eos % (Auto) 0.6 % (0.0-4.3) 07/09/20 06:51 Baso % (Auto) 0.3 % (0.0-1.8) 07/09/20 06:51 Lymph # (Auto) 0.4 K/mm3 (1.2-5.4) L 07/09/20 06:51 [place] # (Auto) 0.4 K/mm3 (0.0-0.8) 07/09/20 06:51 Eos # (Auto) 0.1 K/mm3 (0.0-0.4) 07/09/20 06:51 Baso # (Auto) 0.0 K/mm3 (0.0-0.1) 07/09/20 06:51 Add Manual Diff Complete 07/12/20 05:18 Total Counted 100 07/12/20 05:18 Seg Neutrophils % [employer] 07/12/20 05:18 Seg Neuts % (Manual) 93.0 % (40.0-70.0) H 07/12/20 05:18 Band Neutrophils % 4.0 % 07/07/20 02:42 Lymphocytes % (Manual) 4.0 % (13.4-35.0) L 07/12/20 05:18 Monocytes % (Manual) 3.0 % (0.0-7.3) 07/12/20 05:18 Metamyelocytes % 1.0 % 07/10/20 05:25 Nucleated RBC % Not Reportable 07/12/20 05:18 Seg Neutrophils # 9.1 K/mm3 (1.8-7.7) H 07/09/20 06:51 Seg Neutrophils # Man 11.7 K/mm3 (1.8-7.7) H 07/12/20 05:18 Band Neutrophils # 0.0 K/mm3 07/12/20 05:18 Lymphocytes # (Manual) 0.5 K/mm3 (1.2-5.4) L 07/12/20 05:18 Abs React Lymphs (Man) 0.0 K/mm3 07/12/20 05:18 Monocytes # (Manual) 0.4 K/mm3 (0.0-0.8) 07/12/20 05:18 Eosinophils # (Manual) 0.0 K/mm3 (0.0-0.4) 07/12/20 05:18 Basophils # (Manual) 0.0 K/mm3 (0.0-0.1) 07/12/20 05:18 Metamyelocytes # 0.0 K/mm3 07/12/20 05:18 Myelocytes # 0.0 K/mm3 07/12/20 05:18 Promyelocytes # 0.0 K/mm3 07/12/20 05:18 Blast Cells # 0.0 K/mm3 07/12/20 05:18 WBC Morphology Not Reportable 07/12/20 05:18 Hypersegmented Neuts Not Reportable 07/12/20 05:18 Hyposegmented Neuts Not Reportable 07/12/20 05:18 Hypogranular Neuts Not Reportable 07/12/20 05:18 Smudge Cells Not Reportable 07/12/20 05:18 Toxic Granulation Not Reportable 07/12/20 05:18 Toxic Vacuolation Not Reportable 07/12/20 05:18 Dohle Bodies Not Reportable 07/12/20 05:18 Pelger-Huet Anomaly Not Reportable 07/12/20 05:18 Rudy Rods Not Reportable 07/12/20 05:18 Platelet Estimate Consistent w auto 07/12/20 05:18 Clumped Platelets Not Reportable 07/12/20 05:18 Plt Clumps, EDTA Not Reportable 07/12/20 05:18 Large Platelets Not Reportable 07/12/20 05:18 Giant Platelets Not Reportable 07/12/20 05:18 Platelet Satelliting Not Reportable 07/12/20 05:18 Plt Morphology Comment Not Reportable 07/12/20 05:18 RBC Morphology Not Reportable 07/12/20 05:18 Dimorphic RBCs Not Reportable 07/12/20 05:18 Polychromasia Not Reportable 07/12/20 05:18 Hypochromasia Not Reportable 07/12/20 05:18 Poikilocytosis Not Reportable 07/12/20 05:18 Anisocytosis 1+ 07/12/20 05:18 Microcytosis Not Reportable 07/12/20 05:18 Macrocytosis Not Reportable 07/12/20 05:18 Spherocytes Not Reportable 07/12/20 05:18 Pappenheimer Bodies Not Reportable 07/12/20 05:18 Sickle Cells Not Reportable 07/12/20 05:18 Target Cells Not Reportable 07/12/20 05:18 Tear Drop Cells Not Reportable 07/12/20 05:18 Ovalocytes Not Reportable 07/12/20 05:18 Helmet Cells Not Reportable 07/12/20 05:18 [place] Bodies Not Reportable 07/12/20 05:18 Anchor Rings Not Reportable 07/12/20 05:18 Eliane Cells Not Reportable 07/12/20 05:18 Bite Cells Not Reportable 07/12/20 05:18 Crenated Cell Not Reportable 07/12/20 05:18 Elliptocytes Not Reportable 07/12/20 05:18 Acanthocytes (Spur) Not Reportable 07/12/20 05:18 Rouleaux Not Reportable 07/12/20 05:18 Hemoglobin C Crystals Not Reportable 07/12/20 05:18 Schistocytes Not Reportable 07/12/20 05:18 Malaria parasites Not Reportable 07/12/20 05:18 Shreyas Bodies Not Reportable 07/12/20 05:18 Hem Pathologist Commnt No 07/12/20 05:18 PT 14.7 Sec. (12.2-14.9) 07/06/20 08:50 INR 1.15 (0.87-1.13) H 07/06/20 08:50 APTT 25.9 Sec. (24.2-36.6) 07/06/20 08:50 D-Dimer 1786.87 ng/mlDDU (0-234) H 07/10/20 05:25 ABG pH 7.209 (7.320-7.450) L 07/17/20 05:10 POC ABG pCO2 62.7 mmHg (32.0-48.0) H 07/17/20 05:10 ABG pCO2 32.9 mm Hg 07/13/20 15:50 POC ABG pO2 60.6 mmHg (83-108) L 07/17/20 05:10 ABG pO2 73.7 mm Hg (80.0-90.0) L 07/13/20 15:50 POC ABG HCO3 24.5 07/17/20 05:10 ABG HCO3 21.0 mmol/L (20.0-26.0) 07/13/20 15:50 ABG O2 Saturation 94.5 % (95.0-99.0) L 07/13/20 15:50 ABG O2 Content 12.6 (0.0-44) 07/13/20 15:50 POC ABG Base Excess -4.0 07/17/20 05:10 ABG Base Excess -2.9 mmol/L (-2.0-3.0) L 07/13/20 15:50 ABG Hemoglobin 10.7 (12.0-17.5) L 07/17/20 05:10 ABG Oxyhemoglobin 84 (94-98) L 07/17/20 05:10 ABG Carboxyhemoglobin 1.3 % (0.0-5.0) 07/13/20 15:50 ABG Methemoglobin 0 (0.0-1.5) 07/17/20 05:10 ABG Sodium 138.9 mmol/L (136.0-145.0) 07/17/20 05:10 ABG Potassium 4.5 mmol/L (3.40-4.50) 07/17/20 05:10 ABG Chloride 106.0 mmol/L (98-107) 07/17/20 05:10 ABG Glucose 450 mg/dL (65-95) H 07/17/20 05:10 Oxyhemoglobin 92.8 % (95.0-99.0) L 07/13/20 15:50 Carboxyhemoglobin 1.1 (0.5-1.5) 07/17/20 05:10 FiO2 60 07/17/20 05:10 Sodium 147 mmol/L (137-145) H D 07/17/20 Unknown Potassium 4.8 mmol/L (3.6-5.0) 07/17/20 Unknown Chloride 107.8 mmol/L (98-107) H 07/17/20 Unknown Carbon Dioxide 29 mmol/L (22-30) D 07/17/20 Unknown Anion Gap 15 mmol/L 07/17/20 Unknown BUN 129 mg/dL (7-17) H 07/17/20 Unknown Creatinine 2.2 mg/dL (0.6-1.2) H 07/17/20 Unknown Estimated GFR 22 ml/min 07/17/20 Unknown BUN/Creatinine Ratio 59 % 07/17/20 Unknown Glucose 471 mg/dL (65-100) H 07/17/20 Unknown POC Glucose 333 mg/dL (70-105) H 07/17/20 05:10 Hemoglobin A1c 11.8 % (4-6) H 07/06/20 15:44 Lactic Acid 1.60 mmol/L (0.7-2.0) 07/07/20 08:55 Calcium 7.8 mg/dL (8.4-10.2) L 07/17/20 Unknown Ferritin 920.8 ng/mL (10.0-200.0) H 07/10/20 05:25 Total Bilirubin 1.00 mg/dL (0.1-1.2) 07/11/20 06:08 AST 38 units/L (5-40) 07/11/20 06:08 ALT 24 units/L (7-56) 07/11/20 06:08 Alkaline Phosphatase 107 units/L (35-129) 07/11/20 06:08 Lactate Dehydrogenase 683 units/L (91-180) H 07/06/20 15:44 Total Creatine Kinase 47 units/L (30-135) 07/07/20 00:22 CK-MB (CK-2) 1.6 ng/mL (0.0-4.0) 07/07/20 00:22 CK-MB (CK-2) Rel Index 3.4 (0-4) 07/07/20 00:22 Troponin T < 0.010 ng/mL (0.00-0.029) 07/07/20 00:22 C-Reactive Protein 2.80 mg/dL (0.00-1.30) H 07/10/20 05:25 NT-Pro-B Natriuret Pep 459.9 pg/mL (0-900) 07/07/20 14:31 Total Protein 6.8 g/dL (6.3-8.2) 07/11/20 06:08 Albumin 3.0 g/dL (3.9-5) L 07/11/20 06:08 Albumin/Globulin Ratio 0.8 % 07/11/20 06:08 Triglycerides 215 mg/dL (2-149) H 07/16/20 Unknown Procalcitonin 7.48 ng/mL (<0.15) 07/06/20 15:44 TSH 0.420 mlU/mL (0.270-4.200) 07/08/20 05:07 Arterial Blood Glucose 450 mg/dL (65-95) H 07/17/20 05:10 Arterial Blood Ionized Calcium 4.7 mg/dL (4.6-5.3) 07/17/20 05:10 Urine Color Leatha (Yellow) 07/16/20 11:30 Urine Turbidity Cloudy (Clear) 07/16/20 11:30 Urine pH 5.0 (5.0-7.0) 07/16/20 11:30 Ur Specific Burt 1.018 (1.003-1.030) 07/16/20 11:30 Urine Protein 30 mg/dl mg/dL (Negative) 07/16/20 11:30 Urine Glucose (UA) Neg mg/dL (Negative) 07/16/20 11:30 Urine Ketones Neg mg/dL (Negative) 07/16/20 11:30 Urine Blood Mod (Negative) 07/16/20 11:30 Urine Nitrite Neg (Negative) 07/16/20 11:30 Urine Bilirubin Neg (Negative) 07/16/20 11:30 Urine Urobilinogen 4.0 mg/dL (<2.0) 07/16/20 11:30 Ur Leukocyte Esterase Tr (Negative) 07/16/20 11:30 Urine WBC (Auto) 11.0 /HPF (0.0-6.0) H 07/16/20 11:30 Urine RBC (Auto) 22.0 /HPF (0.0-6.0) 07/16/20 11:30 U Epithel Cells (Auto) 2.0 /HPF (0-13.0) 07/16/20 11:30 Urine Bacteria (Auto) 1+ /HPF (Negative) 07/07/20 03:35 Urine Mucus Few /HPF 07/16/20 11:30 Urine Osmolality 731 Mosm/kg 07/07/20 03:35 Urine Creatinine 149.3 mg/dL (0.1-20.0) H 07/16/20 11:30 Urine Sodium 24 mmol/L 07/16/20 11:30 Urine Urea Nitrogen 457 07/16/20 11:30 Coronavirus (PCR) Positive (Negative) A 07/06/20 09:26 Microbiology: Microbiology 07/13/20 10:46 Tracheal Aspirate Sputum Culture - Final 07/16/20 11:30 Urine,Clean Catch Urine Culture - Preliminary NO GROWTH AFTER 24 HOURS - Diagnostic Impressions Diagnostic Impressions: Echocardiogram 07/08/20 09:36 Transthoracic Echocardiogram Indication: Chest pain BP: 129/66 HR: 67 Conclusions *The study is technically limited due to poor acoustic windows. *Global left ventricular systolic function is normal. *The estimated ejection fraction is greater than 55-60%. *Mild concentric left ventricular hypertrophy is observed. *There is trace of mitral regurgitation. *The right heart chambers are not well visualized. Findings Procedure Info: The study quality is poor. The study is technically limited due to poor acoustic windows. Left Ventricle: The left ventricular chamber size is normal. Mild concentric left ventricular hypertrophy is observed. Global left ventricular systolic function is normal. The estimated ejection fraction is 55-60%. Left Atrium: The left atrial chamber size is normal. Right Ventricle: The right ventricle is not well visualized. Right Atrium: The right atrium is not well visualized. Aortic Valve: The aortic valve leaflets are mildly thickened. There is no evidence of aortic regurgitation. There is no evidence of aortic stenosis. Mitral Valve: The mitral valve leaflets are mildly thickened. There is trace of mitral regurgitation. There is no evidence of mitral stenosis. Tricuspid Valve: The tricuspid valve is not well visualized. Pulmonic Valve: The pulmonic valve is not well visualized. Pericardium: There is no pericardial effusion. Aorta: There is no dilatation of the aortic root. Venous: The inferior vena cava appears normal in size. Measurements Chambers 2D Name Value Normal Range IVSd (2D) 1.02 cm (0.6 - 1.1) LVPWd (2D) 1.02 cm (0.6 - 1.1) LVIDd (2D) 4.88 cm (3.7 - 5.6) LVIDs (2D) 3.22 cm (2 - 3.8) LV FS (2D) 33.94 % - EF Teichholz (2D) 62.68 % - Ao root diameter (2D) 2.8 cm (2 - 3.7) Diastolic/Systolic Function Name Value Normal Range MV E-wave Vmax 0.37 m/sec - MV deceleration time 185.21 msec - MV A-wave Vmax 0.35 m/sec - MV E:A ratio 1.07 ratio - Aortic Valve Name Value Normal Range AV Vmax 1.29 m/sec - AV VTI 24.04 cm - AV peak gradient 6.69 mmHg - AV mean gradient 3.19 mmHg - LVOT diameter 2.01 cm - LVOT Vmax 1.07 m/sec - LVOT VTI 21.78 cm - LVOT peak gradient 4.56 mmHg - LVOT mean gradient 2.37 mmHg - SV LVOT 69.26 ml - LEOBARDO (continuity Vmax) 2.63 cm2 - LEOBARDO (continuity VTI) 2.88 cm2 - Pulmonic Valve/Qp:Qs Name Value Normal Range PV acceleration time 95.15 msec - Beal/IV: Voiding Method Indwelling Catheter Active Medications - Current Medications Current Medications: Generic Name Dose Route Start Last Admin Trade Name Freq PRN Reason Stop Dose Admin Acetaminophen 650 mg 07/06/20 11:01 07/09/20 16:35 Acetaminophen 325 Mg Tab PO 650 mg Q4H PRN Administration Pain MILD(1-3)/Fever >100.5/OHARA Acetaminophen 650 mg 07/08/20 01:34 07/08/20 02:04 Acetaminophen 650 Mg Rect Supp NE 650 mg Q4H PRN Administration PainMild (1-3),fever>100.5,OHARA Al Hydrox/Mg Hydrox/Simethicone 30 ml 07/06/20 11:01 Alum-Mag Hydroxide-Simethicone [id number]/5ml Oral Liqd 30 Ml PO Q4H PRN Indigestion Lipase/Protease/Amylase 1 each 07/13/20 11:45 Lipase 10,500/Protease 25,000/Amylase 43,750 (Units) Dr Juárez FEEDTUBE PRN PRN For Clogged Feeding Tube Ascorbic Acid 500 mg 07/06/20 16:00 07/17/20 10:52 Ascorbic Acid 500 Mg Tab PO 500 mg QDAY MITALI Administration Dextrose 50 ml 07/06/20 11:01 Dextrose 50% In Water (25gm) 50 Ml Syringe IV Q30MIN PRN Hypoglycemia Protocol Docusate Sodium 100 mg 07/14/20 10:00 07/17/20 10:52 Docusate Sodium 100 Mg/10 Ml Oral Liqd FEEDTUBE 100 mg BID MITALI Administration Famotidine 20 mg 07/07/20 10:00 07/17/20 10:52 Famotidine 20 Mg/2 Ml Inj IV 20 mg DAILY MITALI Administration Fentanyl 50 mcg 07/13/20 10:23 Fentanyl 100 Mcg/2 Ml Inj IV Q10MIN PRN ANALGESIA Haloperidol Lactate 5 mg 07/10/20 09:00 07/13/20 03:27 Haloperidol Lactate 5 Mg/1 Ml Inj IV 5 mg Q6H PRN Administration Agitation Heparin Sodium (Porcine) 7,500 unit 07/07/20 14:00 07/17/20 05:38 Heparin 5,000 Unit/1 Ml Vial SUB-Q 7,500 unit Q8HR MITALI Administration Hydrocortisone Sodium Succinate 100 mg 07/16/20 15:00 07/17/20 05:35 Hydrocortisone Sod Succ 100 Mg/2 Ml Vial IV 100 mg Q8HR MITALI Administration Hydrophilic Ointment 1 applic 07/13/20 10:23 Lip Therapy Vaseline TP Q2HR PRN Dry Lips Fentanyl Citrate 2,000 mcg in 100 mls @ 3.475 mls/hr 07/13/20 11:00 07/17/20 05:35 Fentanyl Drip Premix IV 4 mcg/kg/hr TITR MITALI 13.9 mls/hr Administration Protocol 1 MCG/KG/HR Midazolam HCl 100 mg/ Sodium 100 mls @ 2 mls/hr 07/15/20 11:00 07/17/20 04:32 Chloride IV 2 mg/hr TITR MITALI 2 mls/hr Administration Protocol 2 MG/HR Sodium Bicarbonate 150 meq/ 1,150 mls @ 75 mls/hr 07/16/20 11:00 07/17/20 04:31 Dextrose IV 75 mls/hr DIRECT MITALI Administration Insulin Human Isoph/Insulin Regular 30 unit 07/16/20 17:00 07/17/20 08:05 Insulin Nph/Regular 70/30 Inj SUB-Q 30 unit BIDDIAB MITALI Administration Insulin Human Lispro 0 unit 07/16/20 12:00 07/17/20 05:38 Insulin Lispro 100 Unit/Ml SUB-Q 6 unit Q6HR MIATLI Administration Protocol Lorazepam 0.5 mg 07/08/20 11:00 07/14/20 23:26 Lorazepam 2 Mg/Ml Vial IV 0.5 mg Q4H PRN Administration Anxiety Midazolam HCl 2 mg 07/15/20 10:48 Midazolam 2 Mg/2 Ml Inj IV Q10MIN PRN Sedation Multi-Ingred Cream/Lotion/Oil/Oint 1 applic 07/13/20 10:23 Mineral Oil/Petrolatum, White Ophth Oint 3.5 Gm OU Q4HR PRN Dry Eye(s) Multi-Ingred Cream/Lotion/Oil/Oint 1 applic 07/15/20 12:00 07/17/20 05:35 Mineral Oil/Petrolatum, White Ophth Oint 3.5 Gm OU 1 applic Q6H MITALI Administration Ondansetron HCl 4 mg 07/06/20 11:01 Ondansetron 4 Mg/2 Ml Inj IV Q8H PRN Nausea And Vomiting Oxycodone/Acetaminophen 1 tab 07/06/20 11:01 Oxycodone /Acetaminophen 5-325mg Tab PO Q6H PRN Pain, Moderate (4-6) Senna 8.6 mg 07/06/20 22:00 07/17/20 10:52 Sennosides 8.6 Mg Tab PO Not Given Q12HR MITALI Simple Syrup 15 ml 07/13/20 11:45 Simple Syrup 15 Ml FEEDTUBE PRN PRN Hypoglycemia Simple Syrup 30 ml 07/13/20 11:45 Simple Syrup 15 Ml FEEDTUBE PRN PRN Hypoglycemia Sodium Bicarbonate 325 mg 07/13/20 11:45 Sodium Bicarbonate 325 Mg Tab FEEDTUBE PRN PRN For Clogged Feeding Tube Sodium Chloride 10 ml 07/06/20 22:00 07/17/20 10:52 Sodium Chloride 0.9% 10 Ml Flush Syringe IV 10 ml BID MITALI Administration Sodium Chloride 10 ml 07/06/20 11:01 Sodium Chloride 0.9% 10 Ml Flush Syringe IV PRN PRN LINE FLUSH Sodium Chloride 5 ml 07/15/20 11:13 Sodium Chloride 0.9% 500 Ml Ivpb IV PRN PRN ART LINE Zinc Sulfate 220 mg 07/06/20 16:00 07/17/20 10:52 Zinc Sulfate 220 Mg Cap PO 220 mg QDAY MITALI Administration Nutrition/Malnutrition Assess - Dietary Evaluation Nutrition/Malnutrition Findings: Nutrition Notes Start: 07/13/20 10:55 Freq: Status: Active Protocol: Document 07/15/20 11:47 AL (Rec: 07/15/20 11:58 AL [id number]) Co-Sign 07/15/20 11:47 MK Nutrition Notes Initial or Follow up Reassessment Current Diagnosis Diabetes,Hypertension, Hyperlipidemia Other Pertinent Diagnosis COVID-19 (+) Current Diet Vital AF at 50 ml/hr Labs/Tests POC BG 388 07/14: BUN 66 Cr 1.2 Pertinent Medications Colace Humalog Height 5 ft 2 in Weight 61.4 kg [place] Body Weight (kg) 50.00 BMI 24.7 Weight change and time frame wt change noted. Will follow up for fluctuations. Weight Status Appropriate Subjective/Other Information FU for TF start. PT tolerating Vital AF at 50 ml/hr. CARMEN resolved. Percent of energy/protein needs met: 100%/100% Burn Absent Trauma Absent GI Symptoms None Current % PO Negligible Minimum of two criteria No physical signs of malnutrition #1 Nutrition Diagnosis Inadequate oral intake Diagnosis Progress(for reassessment Continues documentation) Is patient on ventilator? Yes Is Patient Ambulatory and/or Out of Bed No [facility] 1310.688 Kcal/Kg value to use for calculation 23 Approximate Energy Requirements Using 1412 kcal/Kg Calculation Used for Recommendations Kcal/kg Additional Notes Pro: 83-139 g (1.2-2.0 kcal/kg ) Fluid: 1 ml/kcal or per MD order Nutrition Intervention Change Diet Order: Continue TF Nutrition Support: Vital AF 1.2 at 50 ml/hr Flush 100 ml/hr Kcal 1,440 Protein (gm) 90 Fluid (mL) 1,003 Goal #1 Meet at least 75% of total energy and protein needs. Anticipated Discharge Needs: Unable to determine at this time Follow-Up By: 07/20/20 Additional Comments F/U for TF tolerance, BG, and wt status
--- NOTE | 2020-07-14 17:08 | Progress Note ---
Subjective Date of service: 07/14/20 Interval history: Afebrile, normal white count. Remains mechanically ventilated. Imaging personally reviewed: Chest x-ray: Stable bilateral parenchymal disease. Objective - Constitutional Vitals: Vital Signs Temp Pulse Resp BP Pulse Ox 97.9 F 87 30 H 97/65 91 07/14/20 16:00 07/14/20 16:00 07/14/20 16:00 07/14/20 16:00 07/14/20 16:00 Temperature -Last 24 Hours Temperature 97.9 F Temperature 98.0 F Temperature 97.5 F Temperature 97.5 F Temperature 97.8 F Temperature 96.6 F Temperature 96.7 F - Labs CBC & Chem 7: 07/14/20 04:31 07/14/20 04:31 Labs: Abnormal lab results 07/13/20 07/13/20 07/14/20 Range/Units 17:35 23:29 03:57 MCH (28-32) pg Plt Count (140-440) K/mm3 POC ABG pO2 63.2 L (83-108) mmHg ABG Hemoglobin 11.8 L (12.0-17.5) ABG Glucose 148 H (65-95) mg/dL Carbon Dioxide (22-30) mmol/L BUN (7-17) mg/dL Glucose (65-100) mg/dL POC Glucose 277 H 173 H (70-105) mg/dL Arterial Blood Glucose 148 H (65-95) mg/dL 07/14/20 07/14/20 07/14/20 Range/Units 04:31 04:31 05:11 MCH 26 L (28-32) pg Plt Count 134 L (140-440) K/mm3 POC ABG pO2 (83-108) mmHg ABG Hemoglobin (12.0-17.5) ABG Glucose (65-95) mg/dL Carbon Dioxide 21 L (22-30) mmol/L BUN 66 H (7-17) mg/dL Glucose 139 H (65-100) mg/dL POC Glucose 126 H (70-105) mg/dL Arterial Blood Glucose (65-95) mg/dL 07/14/20 Range/Units 11:54 MCH (28-32) pg Plt Count (140-440) K/mm3 POC ABG pO2 (83-108) mmHg ABG Hemoglobin (12.0-17.5) ABG Glucose (65-95) mg/dL Carbon Dioxide (22-30) mmol/L BUN (7-17) mg/dL Glucose (65-100) mg/dL POC Glucose 181 H (70-105) mg/dL Arterial Blood Glucose (65-95) mg/dL
[2020-07-14] MEDS: fentaNYL DRIP Premix 2,000 MCG/100 ML BAG IV SCH (18:35)
[2020-07-14] MEDS: LORazepam 2 MG/ML VIAL IV PRN (23:26)
[2020-07-15] MEDS: INSULIN LISPRO 100 UNIT/ML SUB-Q SCH ×5 (01:27→23:55)
--- NOTE | 2020-07-15 03:59 | XRay Report ---
CHEST 1 VIEW 07/15/2020 2:59 AM INDICATION / CLINICAL INFORMATION: follow up respiratory failure. COMPARISON: Yesterday FINDINGS: SUPPORT DEVICES: ET tube, NG tube and bilateral chest tubes again noted. HEART / MEDIASTINUM: Stable mild cardiomegaly LUNGS / PLEURA: Bilateral airspace disease, unchanged when, for differences in technique. Small right apical pneumothorax ADDITIONAL FINDINGS: No significant additional findings. IMPRESSION: 1. Stable small right apical pneumothorax with bilateral chest tubes 2. Stable bilateral airspace disease Signer Name: Fernando Vela MD Signed: 07/15/2020 3:55 AM Workstation Name: [id number]
[2020-07-15] MEDS: fentaNYL DRIP Premix 2,000 MCG/100 ML BAG IV SCH ×3 (05:08→19:36)
[2020-07-15] MEDS: HEPARIN 5,000 UNIT/1 ML VIAL SUB-Q SCH ×3 (05:09→22:17)
[2020-07-15] MEDS: methylPREDNISolone Sod Succinate 125 MG/2 ML INJ IV SCH (05:11)
[2020-07-15] MEDS ORDERED: INSULIN NPH/REGULAR 70/30 INJ SUB-Q SCH (08:00)
[2020-07-15] MEDS: DOCUSATE SODIUM 100 MG/10 ML ORAL LIQD FEEDTUBE SCH ×2 (09:46→22:05)
[2020-07-15] MEDS: FAMOTIDINE 20 MG/2 ML INJ IV SCH (09:46)
[2020-07-15] MEDS: ZINC SULFATE 220 MG CAP PO SCH (09:46)
[2020-07-15] MEDS: SENNOSIDES 8.6 MG TAB PO SCH ×2 (09:46→22:05)
[2020-07-15] MEDS: ASCORBIC ACID 500 MG TAB PO SCH (09:46)
--- NOTE | 2020-07-15 10:21 | Progress Note ---
Assessment and Plan 69 y/o female, covid positive admitted with acute respiratory failure. 07/15/20: Will increase PEEP to 18 today. Unable to prone secondary to bilateral chest tubes. Continue tubes to suction until extubated if able to do so. may need to consider a trial of paralytics to help with oxygenation. Very very Guarded prognosis. Will check with nursing on vascular access, may need pressors with increase in PEEP. 07/14/20: Spoke with daughter over the phone. Updated her. Decreased Tidal Volume and increase PEEP. Will repeat ABG in the am or sooner pending clinical picture. Feeding and tolerating. Continue jo catheter for accurate I/O. Appreciate surgery help and continue chest tubes to wall suction until extubated. Guarded prognosis. 07/13/20: Will electively intubate today. Asked Anesthesia to help with this as patient will likely need paralytic therapy to assist with procedure. Will place on lung protective strategy. Spoke with daughter and explained that even though intubation is the next step, not a guarantee that she will improve with this. Prognosis is very very guarded. Will feed and place jo. Nutrition consult. 07/12/20: Will ask RT to attempt HFNC again today, also attempt to feed patient again. Also if able to allow daughter to at least call and speak to her if possible. Wean FiO2 back down on bipap as patient had significant desats this am but are better now. Guarded prognosis. Updated daughter this am. 07/11/20: Will attempt HFNC this afternoon. IF tolerates will allow patient to eat as well. Daughter wants to speak with her if possible. If she tolerates HFNC with eating then we will call her. Agree with D5W for insensible losses. Continue High dose steroids. Guarded prognosis. 07/10/20: Updated daughter this morning. Will hold on intubation as of right now. Will add scheduled haldol to see if this helps patient to relax and not fight the bipap mask. Really trying to avoid intubation given her COVID positive state and history of outcomes of ventilated patients. Will continue steroids at 60q6. Need to address nutrition soon. If intubated then will place NG/OG tube for supplementation. No further lasix as no improvement. Guarded prognosis. No current indication for ABG. Know that O2 will be marginal given requirements. Will cancel current order. 07/09/20: Continue steroids and Remdesivir. I increased steroids to 60q6 on yesterday. Continue NPO state and Continue bipap. Trying very had to not intubate but given lack of improvement and lack of nutrition, may have to electively do so in the next 12-24 hours. Will give a small dose of IV lasix today. Prognosis is very very guarded. Apparently is upstairs as well. 07/08/20: BNP was high normal, hold on lasix today. Continue steroids and remdesivir, may consider increasing steroids to BID. Continue bipap, NPO. Will give some ativan, very low dose PRN to see if this helps with work of breathing. Sinus ravindra is stable. Guarded prognosis. Doing everything to prevent ex tubation. 1. Will check bnP 2. Agree with steroids and remdesivir 3. Lasix 40mg IV x1 given today 4. Continue bipap for now, wean for sats >88% but wait a few hours until lasix is given. 5. PRone is possible 6. Guarded prognosis. If BNP elevated would need echo 7. Spoke with nursing about bradycardia, sinus on EKG, but if persistently low in 30's please repeat EKG CCT 31 minutes. Subjective Date of service: 07/15/20 Interval history: No acute events. Still on 100% FiO2. PEEP is at 16 and with decreased tidal volumes pH remains >7.2 Sedated. Objective Vital Signs - 12hr 07/14/20 07/14/20 07/14/20 22:30 23:00 23:21 Temperature Pulse Rate 93 H 91 H 88 Pulse Rate [ From Monitor] Respiratory 30 H 30 H Rate Blood Pressure 96/63 94/63 92/50 O2 Sat by Pulse 94 84 87 Oximetry 07/14/20 07/14/20 07/14/20 23:25 23:30 23:49 Temperature 98.8 F Pulse Rate 89 89 Pulse Rate [ From Monitor] Respiratory 30 H 30 H Rate Blood Pressure 92/50 85/56 O2 Sat by Pulse 87 87 Oximetry 07/15/20 07/15/20 07/15/20 00:00 00:30 01:00 Temperature Pulse Rate 89 90 88 Pulse Rate [ 88 From Monitor] Respiratory 30 H 30 H 30 H Rate Blood Pressure 87/56 87/47 88/56 O2 Sat by Pulse 87 85 84 Oximetry 07/15/20 07/15/20 07/15/20 01:30 02:00 02:31 Temperature Pulse Rate 89 88 88 Pulse Rate [ From Monitor] Respiratory 30 H 30 H 30 H Rate Blood Pressure 84/55 91/58 87/56 O2 Sat by Pulse 84 86 86 Oximetry 07/15/20 07/15/20 07/15/20 03:00 03:30 03:42 Temperature 98.3 F Pulse Rate 91 H 100 H Pulse Rate [ From Monitor] Respiratory 30 H 30 H Rate Blood Pressure 91/59 100/68 O2 Sat by Pulse 84 83 L Oximetry 07/15/20 07/15/20 07/15/20 04:00 04:30 04:33 Temperature Pulse Rate 103 H 105 H 105 H Pulse Rate [ 92 H From Monitor] Respiratory 30 H 30 H Rate Blood Pressure 103/54 93/62 93/62 O2 Sat by Pulse 82 L 80 L 80 L Oximetry 07/15/20 07/15/20 07/15/20 05:00 05:30 06:00 Temperature Pulse Rate 103 H 103 H 94 H Pulse Rate [ From Monitor] Respiratory 30 H 30 H 23 Rate Blood Pressure 95/64 97/60 79/43 O2 Sat by Pulse 79 L 95 Oximetry 07/15/20 07/15/20 07/15/20 06:30 07:00 07:30 Temperature 97.5 F L Pulse Rate 89 85 85 Pulse Rate [ From Monitor] Respiratory 30 H 30 H 30 H Rate Blood Pressure 82/49 80/47 84/54 O2 Sat by Pulse 95 96 95 Oximetry 07/15/20 07/15/20 07:44 08:00 Temperature Pulse Rate 89 85 Pulse Rate [ 84 From Monitor] Respiratory 30 H Rate Blood Pressure 82/49 93/58 O2 Sat by Pulse 95 95 Oximetry Constitutional: no acute distress, alert, other (full face mask on for bipap therapy.) Eyes: non-icteric Neck: supple Ascultation: Bilateral: diminished breath sounds CBC and BMP: 07/14/20 04:31 07/14/20 04:31 ABG, PT/INR, D-dimer: ABG ABG pH 7.280 (7.320-7.450) L 07/15/20 03:09 POC ABG pCO2 46.3 mmHg (32.0-48.0) 07/15/20 03:09 ABG pCO2 32.9 mm Hg 07/13/20 15:50 POC ABG pO2 57.7 mmHg (83-108) L 07/15/20 03:09 ABG pO2 73.7 mm Hg (80.0-90.0) L 07/13/20 15:50 POC ABG HCO3 21.3 07/15/20 03:09 ABG O2 Saturation 94.5 % (95.0-99.0) L 07/13/20 15:50 PT/INR, D-dimer PT 14.7 Sec. (12.2-14.9) 07/06/20 08:50 INR 1.15 (0.87-1.13) H 07/06/20 08:50 D-Dimer 1786.87 ng/mlDDU (0-234) H 07/10/20 05:25 Abnormal lab findings: Abnormal Labs 07/06/20 07/06/20 07/06/20 08:50 08:50 08:50 WBC MCV 78 L MCH 26 L Plt Count Lymph % (Auto) Lymph # (Auto) Seg Neutrophils % Seg Neuts % (Manual) 80.0 H Lymphocytes % (Manual) 10.0 L Nucleated RBC % 4.0 H Seg Neutrophils # Seg Neutrophils # Man Lymphocytes # (Manual) 0.9 L INR 1.15 H D-Dimer 1435.13 H ABG pH POC ABG pCO2 POC ABG pO2 ABG pO2 ABG O2 Saturation ABG Base Excess ABG Hemoglobin ABG Oxyhemoglobin ABG Potassium ABG Glucose Oxyhemoglobin Carboxyhemoglobin Sodium 136 L Chloride Carbon Dioxide BUN 45 H Creatinine 1.6 H Glucose 385 H POC Glucose Hemoglobin A1c Lactic Acid Ferritin Alkaline Phosphatase 130 H Lactate Dehydrogenase Troponin T 0.034 H C-Reactive Protein Albumin 3.2 L Arterial Blood Glucose Coronavirus (PCR) 07/06/20 07/06/20 07/06/20 08:50 08:50 08:50 WBC MCV MCH Plt Count Lymph % (Auto) Lymph # (Auto) Seg Neutrophils % Seg Neuts % (Manual) Lymphocytes % (Manual) Nucleated RBC % Seg Neutrophils # Seg Neutrophils # Man Lymphocytes # (Manual) INR D-Dimer ABG pH POC ABG pCO2 POC ABG pO2 ABG pO2 ABG O2 Saturation ABG Base Excess ABG Hemoglobin ABG Oxyhemoglobin ABG Potassium ABG Glucose Oxyhemoglobin Carboxyhemoglobin Sodium Chloride Carbon Dioxide BUN Creatinine Glucose 385 H POC Glucose Hemoglobin A1c Lactic Acid 2.30 H* Ferritin 1158.0 H Alkaline Phosphatase Lactate Dehydrogenase 471 H Troponin T C-Reactive Protein 10.40 H Albumin Arterial Blood Glucose Coronavirus (PCR) 07/06/20 07/06/20 07/06/20 09:26 15:44 15:44 WBC MCV MCH Plt Count Lymph % (Auto) Lymph # (Auto) Seg Neutrophils % Seg Neuts % (Manual) Lymphocytes % (Manual) Nucleated RBC % Seg Neutrophils # Seg Neutrophils # Man Lymphocytes # (Manual) INR D-Dimer ABG pH POC ABG pCO2 POC ABG pO2 ABG pO2 ABG O2 Saturation ABG Base Excess ABG Hemoglobin ABG Oxyhemoglobin ABG Potassium ABG Glucose Oxyhemoglobin Carboxyhemoglobin Sodium Chloride Carbon Dioxide BUN Creatinine Glucose POC Glucose Hemoglobin A1c 11.8 H Lactic Acid 2.40 H* Ferritin Alkaline Phosphatase Lactate Dehydrogenase Troponin T C-Reactive Protein Albumin Arterial Blood Glucose Coronavirus (PCR) Positive A 07/06/20 07/06/20 07/06/20 15:44 17:40 20:35 WBC MCV MCH Plt Count Lymph % (Auto) Lymph # (Auto) Seg Neutrophils % Seg Neuts % (Manual) Lymphocytes % (Manual) Nucleated RBC % Seg Neutrophils # Seg Neutrophils # Man Lymphocytes # (Manual) INR D-Dimer ABG pH 7.455 H POC ABG pCO2 30.9 L POC ABG pO2 50.0 L ABG pO2 ABG O2 Saturation ABG Base Excess ABG Hemoglobin 11.1 L ABG Oxyhemoglobin 80.6 L ABG Potassium ABG Glucose 357 H Oxyhemoglobin Carboxyhemoglobin 0.3 L Sodium Chloride Carbon Dioxide BUN Creatinine Glucose POC Glucose 324 H Hemoglobin A1c Lactic Acid Ferritin Alkaline Phosphatase Lactate Dehydrogenase 683 H Troponin T C-Reactive Protein Albumin Arterial Blood Glucose 357 H Coronavirus (PCR) 07/06/20 07/06/20 07/07/20 21:49 23:52 02:19 WBC MCV MCH Plt Count Lymph % (Auto) Lymph # (Auto) Seg Neutrophils % Seg Neuts % (Manual) Lymphocytes % (Manual) Nucleated RBC % Seg Neutrophils # Seg Neutrophils # Man Lymphocytes # (Manual) INR D-Dimer ABG pH 7.455 H POC ABG pCO2 31.9 L POC ABG pO2 50.7 L 62.0 L ABG pO2 ABG O2 Saturation ABG Base Excess ABG Hemoglobin 10.8 L 10.8 L ABG Oxyhemoglobin 80.2 L 88.3 L ABG Potassium ABG Glucose 358 H 330 H Oxyhemoglobin Carboxyhemoglobin 0.2 L 0.2 L Sodium Chloride Carbon Dioxide BUN Creatinine Glucose POC Glucose 336 H Hemoglobin A1c Lactic Acid Ferritin Alkaline Phosphatase Lactate Dehydrogenase Troponin T C-Reactive Protein Albumin Arterial Blood Glucose 358 H 330 H Coronavirus (PCR) 07/07/20 07/07/20 07/07/20 02:42 02:42 07:54 WBC MCV MCH 26 L Plt Count Lymph % (Auto) Lymph # (Auto) Seg Neutrophils % Seg Neuts % (Manual) 85.0 H Lymphocytes % (Manual) 6.0 L Nucleated RBC % Seg Neutrophils # Seg Neutrophils # Man 7.9 H Lymphocytes # (Manual) 0.6 L INR D-Dimer ABG pH POC ABG pCO2 POC ABG pO2 ABG pO2 ABG O2 Saturation ABG Base Excess ABG Hemoglobin ABG Oxyhemoglobin ABG Potassium ABG Glucose Oxyhemoglobin Carboxyhemoglobin Sodium Chloride Carbon Dioxide BUN 47 H Creatinine 1.3 H Glucose 336 H POC Glucose 289 H Hemoglobin A1c Lactic Acid Ferritin Alkaline Phosphatase Lactate Dehydrogenase Troponin T C-Reactive Protein Albumin Arterial Blood Glucose Coronavirus (PCR) 07/07/20 07/07/20 07/07/20 11:07 15:40 23:27 WBC MCV MCH Plt Count Lymph % (Auto) Lymph # (Auto) Seg Neutrophils % Seg Neuts % (Manual) Lymphocytes % (Manual) Nucleated RBC % Seg Neutrophils # Seg Neutrophils # Man Lymphocytes # (Manual) INR D-Dimer ABG pH POC ABG pCO2 POC ABG pO2 ABG pO2 ABG O2 Saturation ABG Base Excess ABG Hemoglobin ABG Oxyhemoglobin ABG Potassium ABG Glucose Oxyhemoglobin Carboxyhemoglobin Sodium Chloride Carbon Dioxide BUN Creatinine Glucose POC Glucose 322 H 346 H 274 H Hemoglobin A1c Lactic Acid Ferritin Alkaline Phosphatase Lactate Dehydrogenase Troponin T C-Reactive Protein Albumin Arterial Blood Glucose Coronavirus (PCR) 07/08/20 07/08/20 07/08/20 02:39 05:07 05:07 WBC MCV MCH Plt Count Lymph % (Auto) Lymph # (Auto) Seg Neutrophils % Seg Neuts % (Manual) Lymphocytes % (Manual) Nucleated RBC % Seg Neutrophils # Seg Neutrophils # Man Lymphocytes # (Manual) INR D-Dimer 2542.57 H ABG pH 7.487 H POC ABG pCO2 POC ABG pO2 52.5 L ABG pO2 ABG O2 Saturation ABG Base Excess ABG Hemoglobin 11.8 L ABG Oxyhemoglobin ABG Potassium ABG Glucose 336 H Oxyhemoglobin Carboxyhemoglobin Sodium Chloride Carbon Dioxide BUN 51 H Creatinine Glucose 326 H POC Glucose Hemoglobin A1c Lactic Acid Ferritin Alkaline Phosphatase Lactate Dehydrogenase Troponin T C-Reactive Protein 4.30 H Albumin 3.2 L Arterial Blood Glucose 336 H Coronavirus (PCR) 07/08/20 07/08/20 07/08/20 05:07 05:07 05:21 WBC MCV MCH 25 L Plt Count Lymph % (Auto) 7.9 L Lymph # (Auto) 0.6 L Seg Neutrophils % 85.6 H Seg Neuts % (Manual) Lymphocytes % (Manual) Nucleated RBC % Seg Neutrophils # Seg Neutrophils # Man Lymphocytes # (Manual) INR D-Dimer ABG pH POC ABG pCO2 POC ABG pO2 ABG pO2 ABG O2 Saturation ABG Base Excess ABG Hemoglobin ABG Oxyhemoglobin ABG Potassium ABG Glucose Oxyhemoglobin Carboxyhemoglobin Sodium Chloride Carbon Dioxide BUN Creatinine Glucose POC Glucose 293 H Hemoglobin A1c Lactic Acid Ferritin 975.6 H Alkaline Phosphatase Lactate Dehydrogenase Troponin T C-Reactive Protein Albumin Arterial Blood Glucose Coronavirus (PCR) 07/08/20 07/08/20 07/08/20 08:59 11:39 17:57 WBC MCV MCH Plt Count Lymph % (Auto) Lymph # (Auto) Seg Neutrophils % Seg Neuts % (Manual) Lymphocytes % (Manual) Nucleated RBC % Seg Neutrophils # Seg Neutrophils # Man Lymphocytes # (Manual) INR D-Dimer ABG pH POC ABG pCO2 POC ABG pO2 ABG pO2 ABG O2 Saturation ABG Base Excess ABG Hemoglobin ABG Oxyhemoglobin ABG Potassium ABG Glucose Oxyhemoglobin Carboxyhemoglobin Sodium Chloride Carbon Dioxide BUN Creatinine Glucose POC Glucose 270 H 285 H 221 H Hemoglobin A1c Lactic Acid Ferritin Alkaline Phosphatase Lactate Dehydrogenase Troponin T C-Reactive Protein Albumin Arterial Blood Glucose Coronavirus (PCR) 07/08/20 07/08/20 07/09/20 21:26 23:29 05:29 WBC MCV MCH Plt Count Lymph % (Auto) Lymph # (Auto) Seg Neutrophils % Seg Neuts % (Manual) Lymphocytes % (Manual) Nucleated RBC % Seg Neutrophils # Seg Neutrophils # Man Lymphocytes # (Manual) INR D-Dimer ABG pH POC ABG pCO2 POC ABG pO2 ABG pO2 ABG O2 Saturation ABG Base Excess ABG Hemoglobin ABG Oxyhemoglobin ABG Potassium ABG Glucose Oxyhemoglobin Carboxyhemoglobin Sodium Chloride Carbon Dioxide BUN Creatinine Glucose POC Glucose 232 H 231 H 196 H Hemoglobin A1c Lactic Acid Ferritin Alkaline Phosphatase Lactate Dehydrogenase Troponin T C-Reactive Protein Albumin Arterial Blood Glucose Coronavirus (PCR) 07/09/20 07/09/20 07/09/20 06:51 06:51 12:10 WBC MCV MCH 26 L Plt Count Lymph % (Auto) 4.3 L Lymph # (Auto) 0.4 L Seg Neutrophils % Seg Neuts % (Manual) Lymphocytes % (Manual) 1.0 L Nucleated RBC % Seg Neutrophils # 9.1 H Seg Neutrophils # Man 9.8 H Lymphocytes # (Manual) 0.1 L INR D-Dimer ABG pH POC ABG pCO2 POC ABG pO2 ABG pO2 ABG O2 Saturation ABG Base Excess ABG Hemoglobin ABG Oxyhemoglobin ABG Potassium ABG Glucose Oxyhemoglobin Carboxyhemoglobin Sodium 147 H Chloride 111.9 H Carbon Dioxide BUN 52 H Creatinine Glucose 207 H POC Glucose 176 H Hemoglobin A1c Lactic Acid Ferritin Alkaline Phosphatase Lactate Dehydrogenase Troponin T C-Reactive Protein Albumin 3.2 L Arterial Blood Glucose Coronavirus (PCR) 07/09/20 07/09/20 07/10/20 17:49 23:36 05:17 WBC MCV MCH Plt Count Lymph % (Auto) Lymph # (Auto) Seg Neutrophils % Seg Neuts % (Manual) Lymphocytes % (Manual) Nucleated RBC % Seg Neutrophils # Seg Neutrophils # Man Lymphocytes # (Manual) INR D-Dimer ABG pH POC ABG pCO2 POC ABG pO2 ABG pO2 ABG O2 Saturation ABG Base Excess ABG Hemoglobin ABG Oxyhemoglobin ABG Potassium ABG Glucose Oxyhemoglobin Carboxyhemoglobin Sodium Chloride Carbon Dioxide BUN Creatinine Glucose POC Glucose 196 H 154 H 178 H Hemoglobin A1c Lactic Acid Ferritin Alkaline Phosphatase Lactate Dehydrogenase Troponin T C-Reactive Protein Albumin Arterial Blood Glucose Coronavirus (PCR) 07/10/20 07/10/20 07/10/20 05:25 05:25 05:25 WBC MCV MCH Plt Count Lymph % (Auto) Lymph # (Auto) Seg Neutrophils % Seg Neuts % (Manual) Lymphocytes % (Manual) Nucleated RBC % Seg Neutrophils # Seg Neutrophils # Man Lymphocytes # (Manual) INR D-Dimer 1786.87 H ABG pH POC ABG pCO2 POC ABG pO2 ABG pO2 ABG O2 Saturation ABG Base Excess ABG Hemoglobin ABG Oxyhemoglobin ABG Potassium ABG Glucose Oxyhemoglobin Carboxyhemoglobin Sodium 152 H Chloride 112.8 H Carbon Dioxide BUN 60 H Creatinine Glucose 204 H POC Glucose Hemoglobin A1c Lactic Acid Ferritin 920.8 H Alkaline Phosphatase Lactate Dehydrogenase Troponin T C-Reactive Protein 2.80 H Albumin 3.3 L Arterial Blood Glucose Coronavirus (PCR) 07/10/20 07/10/20 07/10/20 05:25 12:39 17:56 WBC MCV MCH 27 L Plt Count Lymph % (Auto) Lymph # (Auto) Seg Neutrophils % Seg Neuts % (Manual) 92.0 H Lymphocytes % (Manual) 3.0 L Nucleated RBC % Seg Neutrophils # Seg Neutrophils # Man 9.5 H Lymphocytes # (Manual) 0.3 L INR D-Dimer ABG pH POC ABG pCO2 POC ABG pO2 ABG pO2 ABG O2 Saturation ABG Base Excess ABG Hemoglobin ABG Oxyhemoglobin ABG Potassium ABG Glucose Oxyhemoglobin Carboxyhemoglobin Sodium Chloride Carbon Dioxide BUN Creatinine Glucose POC Glucose 174 H 177 H Hemoglobin A1c Lactic Acid Ferritin Alkaline Phosphatase Lactate Dehydrogenase Troponin T C-Reactive Protein Albumin Arterial Blood Glucose Coronavirus (PCR) 07/10/20 07/11/20 07/11/20 23:13 05:20 06:08 WBC MCV MCH Plt Count Lymph % (Auto) Lymph # (Auto) Seg Neutrophils % Seg Neuts % (Manual) Lymphocytes % (Manual) Nucleated RBC % Seg Neutrophils # Seg Neutrophils # Man Lymphocytes # (Manual) INR D-Dimer ABG pH POC ABG pCO2 POC ABG pO2 ABG pO2 ABG O2 Saturation ABG Base Excess ABG Hemoglobin ABG Oxyhemoglobin ABG Potassium ABG Glucose Oxyhemoglobin Carboxyhemoglobin Sodium 159 H Chloride 120.9 H Carbon Dioxide BUN 57 H Creatinine Glucose 162 H POC Glucose 107 H 129 H Hemoglobin A1c Lactic Acid Ferritin Alkaline Phosphatase Lactate Dehydrogenase Troponin T C-Reactive Protein Albumin 3.0 L Arterial Blood Glucose Coronavirus (PCR) 07/11/20 07/11/20 07/11/20 12:08 17:21 23:20 WBC MCV MCH Plt Count Lymph % (Auto) Lymph # (Auto) Seg Neutrophils % Seg Neuts % (Manual) Lymphocytes % (Manual) Nucleated RBC % Seg Neutrophils # Seg Neutrophils # Man Lymphocytes # (Manual) INR D-Dimer ABG pH POC ABG pCO2 POC ABG pO2 ABG pO2 ABG O2 Saturation ABG Base Excess ABG Hemoglobin ABG Oxyhemoglobin ABG Potassium ABG Glucose Oxyhemoglobin Carboxyhemoglobin Sodium Chloride Carbon Dioxide BUN Creatinine Glucose POC Glucose 238 H 240 H 176 H Hemoglobin A1c Lactic Acid Ferritin Alkaline Phosphatase Lactate Dehydrogenase Troponin T C-Reactive Protein Albumin Arterial Blood Glucose Coronavirus (PCR) 07/12/20 07/12/20 07/12/20 01:55 05:16 05:18 WBC 12.6 H MCV MCH 26 L Plt Count Lymph % (Auto) Lymph # (Auto) Seg Neutrophils % Seg Neuts % (Manual) 93.0 H Lymphocytes % (Manual) 4.0 L Nucleated RBC % Seg Neutrophils # Seg Neutrophils # Man 11.7 H Lymphocytes # (Manual) 0.5 L INR D-Dimer ABG pH POC ABG pCO2 POC ABG pO2 ABG pO2 ABG O2 Saturation ABG Base Excess ABG Hemoglobin ABG Oxyhemoglobin ABG Potassium ABG Glucose Oxyhemoglobin Carboxyhemoglobin Sodium 151 H D Chloride 115.5 H Carbon Dioxide BUN 52 H Creatinine Glucose 250 H POC Glucose 202 H Hemoglobin A1c Lactic Acid Ferritin Alkaline Phosphatase Lactate Dehydrogenase Troponin T C-Reactive Protein Albumin Arterial Blood Glucose Coronavirus (PCR) 07/12/20 07/12/20 07/12/20 05:18 11:50 17:25 WBC MCV MCH Plt Count Lymph % (Auto) Lymph # (Auto) Seg Neutrophils % Seg Neuts % (Manual) Lymphocytes % (Manual) Nucleated RBC % Seg Neutrophils # Seg Neutrophils # Man Lymphocytes # (Manual) INR D-Dimer ABG pH POC ABG pCO2 POC ABG pO2 ABG pO2 ABG O2 Saturation ABG Base Excess ABG Hemoglobin ABG Oxyhemoglobin ABG Potassium ABG Glucose Oxyhemoglobin Carboxyhemoglobin Sodium 152 H Chloride 113.7 H Carbon Dioxide BUN 50 H Creatinine Glucose 232 H POC Glucose 218 H 130 H Hemoglobin A1c Lactic Acid Ferritin Alkaline Phosphatase Lactate Dehydrogenase Troponin T C-Reactive Protein Albumin Arterial Blood Glucose Coronavirus (PCR) 07/12/20 07/13/20 07/13/20 23:17 04:39 04:39 WBC MCV MCH 26 L Plt Count Lymph % (Auto) Lymph # (Auto) Seg Neutrophils % Seg Neuts % (Manual) Lymphocytes % (Manual) Nucleated RBC % Seg Neutrophils # Seg Neutrophils # Man Lymphocytes # (Manual) INR D-Dimer ABG pH POC ABG pCO2 POC ABG pO2 ABG pO2 ABG O2 Saturation ABG Base Excess ABG Hemoglobin ABG Oxyhemoglobin ABG Potassium ABG Glucose Oxyhemoglobin Carboxyhemoglobin Sodium Chloride 109.4 H Carbon Dioxide BUN 44 H Creatinine Glucose 281 H POC Glucose 161 H Hemoglobin A1c Lactic Acid Ferritin Alkaline Phosphatase Lactate Dehydrogenase Troponin T C-Reactive Protein Albumin Arterial Blood Glucose Coronavirus (PCR) 07/13/20 07/13/20 07/13/20 05:16 11:56 15:50 WBC MCV MCH Plt Count Lymph % (Auto) Lymph # (Auto) Seg Neutrophils % Seg Neuts % (Manual) Lymphocytes % (Manual) Nucleated RBC % Seg Neutrophils # Seg Neutrophils # Man Lymphocytes # (Manual) INR D-Dimer ABG pH POC ABG pCO2 POC ABG pO2 ABG pO2 73.7 L ABG O2 Saturation 94.5 L ABG Base Excess -2.9 L ABG Hemoglobin 9.6 L ABG Oxyhemoglobin ABG Potassium ABG Glucose Oxyhemoglobin 92.8 L Carboxyhemoglobin Sodium Chloride Carbon Dioxide BUN Creatinine Glucose POC Glucose 210 H 229 H Hemoglobin A1c Lactic Acid Ferritin Alkaline Phosphatase Lactate Dehydrogenase Troponin T C-Reactive Protein Albumin Arterial Blood Glucose Coronavirus (PCR) 07/13/20 07/13/20 07/14/20 17:35 23:29 03:57 WBC MCV MCH Plt Count Lymph % (Auto) Lymph # (Auto) Seg Neutrophils % Seg Neuts % (Manual) Lymphocytes % (Manual) Nucleated RBC % Seg Neutrophils # Seg Neutrophils # Man Lymphocytes # (Manual) INR D-Dimer ABG pH POC ABG pCO2 POC ABG pO2 63.2 L ABG pO2 ABG O2 Saturation ABG Base Excess ABG Hemoglobin 11.8 L ABG Oxyhemoglobin ABG Potassium ABG Glucose 148 H Oxyhemoglobin Carboxyhemoglobin Sodium Chloride Carbon Dioxide BUN Creatinine Glucose POC Glucose 277 H 173 H Hemoglobin A1c Lactic Acid Ferritin Alkaline Phosphatase Lactate Dehydrogenase Troponin T C-Reactive Protein Albumin Arterial Blood Glucose 148 H Coronavirus (PCR) 07/14/20 07/14/20 07/14/20 04:31 04:31 05:11 WBC MCV MCH 26 L Plt Count 134 L Lymph % (Auto) Lymph # (Auto) Seg Neutrophils % Seg Neuts % (Manual) Lymphocytes % (Manual) Nucleated RBC % Seg Neutrophils # Seg Neutrophils # Man Lymphocytes # (Manual) INR D-Dimer ABG pH POC ABG pCO2 POC ABG pO2 ABG pO2 ABG O2 Saturation ABG Base Excess ABG Hemoglobin ABG Oxyhemoglobin ABG Potassium ABG Glucose Oxyhemoglobin Carboxyhemoglobin Sodium Chloride Carbon Dioxide 21 L BUN 66 H Creatinine Glucose 139 H POC Glucose 126 H Hemoglobin A1c Lactic Acid Ferritin Alkaline Phosphatase Lactate Dehydrogenase Troponin T C-Reactive Protein Albumin Arterial Blood Glucose Coronavirus (PCR) 07/14/20 07/14/20 07/14/20 11:54 17:44 21:25 WBC MCV MCH Plt Count Lymph % (Auto) Lymph # (Auto) Seg Neutrophils % Seg Neuts % (Manual) Lymphocytes % (Manual) Nucleated RBC % Seg Neutrophils # Seg Neutrophils # Man Lymphocytes # (Manual) INR D-Dimer ABG pH POC ABG pCO2 POC ABG pO2 64.8 L ABG pO2 ABG O2 Saturation ABG Base Excess ABG Hemoglobin 11.9 L ABG Oxyhemoglobin 86.8 L ABG Potassium ABG Glucose 296 H Oxyhemoglobin Carboxyhemoglobin Sodium Chloride Carbon Dioxide BUN Creatinine Glucose POC Glucose 181 H 274 H Hemoglobin A1c Lactic Acid Ferritin Alkaline Phosphatase Lactate Dehydrogenase Troponin T C-Reactive Protein Albumin Arterial Blood Glucose 296 H Coronavirus (PCR) 07/14/20 07/15/20 07/15/20 23:20 03:09 05:32 WBC MCV MCH Plt Count Lymph % (Auto) Lymph # (Auto) Seg Neutrophils % Seg Neuts % (Manual) Lymphocytes % (Manual) Nucleated RBC % Seg Neutrophils # Seg Neutrophils # Man Lymphocytes # (Manual) INR D-Dimer ABG pH 7.280 L POC ABG pCO2 POC ABG pO2 57.7 L ABG pO2 ABG O2 Saturation ABG Base Excess ABG Hemoglobin 11.8 L ABG Oxyhemoglobin 79.3 L ABG Potassium 4.6 H ABG Glucose 340 H Oxyhemoglobin Carboxyhemoglobin Sodium Chloride Carbon Dioxide BUN Creatinine Glucose POC Glucose 271 H 339 H Hemoglobin A1c Lactic Acid Ferritin Alkaline Phosphatase Lactate Dehydrogenase Troponin T C-Reactive Protein Albumin Arterial Blood Glucose 340 H Coronavirus (PCR)
[2020-07-15] MEDS ORDERED: MIDAZOLAM 2 MG/2 ML INJ IV PRN (10:48)
[2020-07-15] MEDS ORDERED: SODIUM CHLORIDE 0.9% 500 ML IVPB IV PRN (11:13)
--- NOTE | 2020-07-15 11:59 | Progress Note ---
Assessment and Plan Cultures: SARS CoV2 PCR: Positive 07/06/2020 blood culture: No growth A/P: 69-year-old female with hypertension, diabetes: #Sepsis: Secondary to COVID-19 #Bilateral pneumonia: Secondary to COVID-19 #Acute hypoxic respiratory failure: On HFNC/BiPAP #CARMEN: Monitor renal function #Elevated D-dimer: VTE evaluation negative. Recs: -continue steroids, dosing per ICU -Completed empiric antibiotics -Completed remdesivir -prophylactic anticoagulation based on d-dimer per hospital protocol -trend ferritin, LDH, d-dimer, CRP every 2-3 days for risk stratification and to assess disease progression -guarded prognosis Addison Kathleen MD [facility] O: [phone] F: [phone] Subjective Date of service: 07/15/20 Interval history: Afebrile, normal whtie count. CXR: Stable Objective - Exam Narrative Exam: Physical exam deferred due to PPE conservation strategy. Please refer to primary team's note. - Constitutional Vitals: Vital Signs Temp Pulse Resp BP Pulse Ox 97.8 F 92 H 30 H 92/61 86 07/15/20 11:53 07/15/20 11:30 07/15/20 11:30 07/15/20 11:30 07/15/20 11:30 Temperature -Last 24 Hours Temperature 97.8 F Temperature 97.5 F Temperature 98.3 F Temperature 98.8 F Temperature 98.2 F Temperature 97.9 F Temperature 98.0 F - Labs CBC & Chem 7: 07/14/20 04:31 07/14/20 04:31 Labs: Abnormal lab results 07/14/20 07/14/20 07/14/20 Range/Units 11:54 17:44 21:25 ABG pH (7.320-7.450) POC ABG pO2 64.8 L (83-108) mmHg ABG Hemoglobin 11.9 L (12.0-17.5) ABG Oxyhemoglobin 86.8 L (94-98) ABG Potassium (3.40-4.50) mmol/L ABG Glucose 296 H (65-95) mg/dL POC Glucose 181 H 274 H (70-105) mg/dL Arterial Blood Glucose 296 H (65-95) mg/dL 07/14/20 07/15/20 07/15/20 Range/Units 23:20 03:09 05:32 ABG pH 7.280 L (7.320-7.450) POC ABG pO2 57.7 L (83-108) mmHg ABG Hemoglobin 11.8 L (12.0-17.5) ABG Oxyhemoglobin 79.3 L (94-98) ABG Potassium 4.6 H (3.40-4.50) mmol/L ABG Glucose 340 H (65-95) mg/dL POC Glucose 271 H 339 H (70-105) mg/dL Arterial Blood Glucose 340 H (65-95) mg/dL 07/15/20 Range/Units 11:39 ABG pH (7.320-7.450) POC ABG pO2 (83-108) mmHg ABG Hemoglobin (12.0-17.5) ABG Oxyhemoglobin (94-98) ABG Potassium (3.40-4.50) mmol/L ABG Glucose (65-95) mg/dL POC Glucose 388 H (70-105) mg/dL Arterial Blood Glucose (65-95) mg/dL
[2020-07-15] MEDS: MIDAZOLAM 100 MG in SODIUM CHLORIDE 0.9% 80 ML IV SCH (12:07)
[2020-07-15] MEDS: MINERAL OIL/PETROLATUM, WHITE OPHTH OINT 3.5 GM OU SCH ×3 (12:18→23:53)
--- NOTE | 2020-07-15 14:05 | Progress Note ---
<JONASPAULETTE BoydSheyla - Last Filed: 07/15/20 14:00> Assessment and Plan Assessment and plan: Sepsis -Presented with hypoxia, tachypnea and acute hypoxic respiratory failure, acute kidney injury, pneumonia on CXR and COVID-19 infection -07/06 blood cultures x2 no growth to date -s/p Antibiotic therapy -Infectious disease consulted, appreciate recommendations -Stress dose steroids COVID-19 infection -07/06 CXR shows diffuse hazy bilateral lung opacities concerning for viral infection, atypical pneumonia or pulmonary edema with no pleural effusions or pneumothorax -07/06 COVID-19 PCR positive -07/05 COVID-19 PCR at outside facility positive -Infectious disease and pulmonology consulted, appreciate recommendations -Contact/droplet isolation -Pulmonary hygiene -Supplemental oxygen as needed -S/p antibiotic therapy -07/07-07/12 s/p remdesivir therapy -S/p steroid therapy for COVID-19 infection -OOB 3 times daily -Prone to sleep as needed -Anticoagulation per protocol -Vitamin C, vitamin D and zinc -SPO2 monitoring Bilateral pneumonia -07/06 CXR shows diffuse hazy bilateral lung opacities concerning for viral infection, atypical pneumonia or pulmonary edema with no pleural effusions or pneumothorax -Secondary to COVID-19 infection -s/p Antibiotic therapy -Infectious disease consulted, appreciate recommendation -07/06 blood cultures x2 no growth to date Acute hypoxic respiratory failure -Room air SPO2 75% and placed on high flow nasal cannula -Pulmonary consulted, patient recommendations -Steroid therapy -Supplemental oxygen as needed -Pulmonary hygiene -SPO2 monitoring -07/13 patient was electively intubated Bilateral pneumothorax -Evidenced on CXR -General surgery consulted for placement of bilateral chest tubes Hyperchloremia -07/09 chloride 111 which trended up to 120 -Trend BMP Elevated D-dimer -Admit D-dimer 1435 -07/06 nuclear medicine perfusion study shows low probability of pulmonary embolism -07/06 bilateral lower extremity Doppler ultrasound negative for DVT/SVT Elevated troponin/SB -Presented with a troponin of 0.034 -07/06 troponin less than 0.10 -Cardiology consulted, appreciate recommendations -EKG as needed -No complaints of chest pain -Cardiology believes elevated troponin is in setting of acute kidney injury Hypertension -Titrate Antihypertensives as needed -Hydralazine as needed for SBP greater than 160 -Blood pressure monitoring per protocol Diabetes mellitus -07/06 hemoglobin A1c 11.8 -SSI -CC cardiac diet -Accu-Cheks AC at bedtime -Hypoglycemia protocol -07/06 70/30 initiated, titrate as needed DVT prophylaxis -Heparin subcu -GI prophylaxis -SCDs to bilateral lower extremities while in bed Acute kidney injury, resolved -12/2016 creatinine/BUN 0.9/15 -Presented with a creatinine/BUN 1.6/45 -Trend BMP -Consider nephrology consult if not improving -07/13 BUN/creatinine 44/0.9 -Secondary to vasomotor nephropathy History Interval history: This is a 69-year-old Laotian female with limited Malaysian with hypertension, diabetes mellitus, hyperlipidemia who presented to the hospital on 07/06 via EMS with worsening subjective fevers, headache, body ache, dry cough, dyspnea on exertion, fatigue, headache and nausea since the last week end of May. Patient had a positive COVID-19 PCR on 07/05 as outside facility. Upon arrival to the emergency department patient was hypoxic on room air at 75% and tachypneic. Work-up in the emergency department with a CXR which showed bilateral pneumonia, lactic acidosis at 2.3, acute kidney injury at 1.6/45, elevated D-dimer, elevated troponin and slight hyponatremia 136. Patient received Rocephin, azithromycin and Decadron in the emergency department. Patient was admitted to the hospitalist service as a COVID-19 PUI, acute kidney injury, sepsis, lactic acidosis, and elevated D-dimer with consults to pulmonology and infectious disease. 07/06: COVID-19 PCR positive, azithromycin and Rocephin, Decadron and remdesivir therapy 07/07: Patient is on 100% FiO2 BiPAP therapy with SPO2 in the low 90s and high 80s, hypoxia and ABG, sinus bradycardia noted overnight. Repeat CXR shows persistent diffuse pulmonary process and pulmonary edema therefore she received 40 mg of Lasix x1 and a proBNP is pending per [facility] 07/08: Patient remains on antibiotic therapy, kidney function tests have not worsened, sinus bradycardia still persist and steroid dosing was increased today by [facility]. Patient's daughter was updated today 07/09: Overnight it was noted that the patient developed bilateral small pneumot horax on AM CXR. She still remains on 100% FiO2 via Bipap and her ABG shows hypoxia. Her steroid therapy was changed per [facility] and she received lasix x1 today. 07/10: Still remains hypoxic on BiPAP. Labs reviewed-sodium 152 today. Hold off on IV fluids for today due to ongoing respiratory difficulty. Trend sodium for now and if elevated tomorrow we will start on hypotonic solution. Possible intubation in the next 24 hours if no improvement in respiratory status. Critical care on board 07/11. Her oxygen sats remains stable. Plan to switch to HFNC to see if she tolerated. Started on D5W due to worsening hyponatremia and lethargy. BMP q6 hr ordered 07/12: Patient remains on BiPAP as she was unable to maintain her oxygenation on HFNC, remains hypernatremic and hyperchloremic although improving. 07/13: CXR from this a.m. showed increase in bilateral pneumothorax size, patient was electively intubated and placed on mechanical ventilation. Surgery was consulted for placement of bilateral chest tubes. Patient's hypernatremia, leukocytosis, hyperchloremia has improved. NG tube placed and nutrition consulted. She remains hyperglycemic and her insulin dose was adjusted. 07/14: Patient's leukocytosis, hyponatremia and hypochloremia has resolved today she has metabolic acidosis and hypoxia on ABG therefore her PEEP has been increased. Patient still remains sedated on propofol and fentanyl. Bilateral chest tubes are to wall suction with minimal to no drainage. No acute events reported overnight. 07/15: Patient received Ativan overnight for agitation and her propofol was increased therefore she was slightly hypotensive, at the time my examination patient remains on mechanical ventilation and sedated with propofol/fentanyl. Her PEEP has been increased to 16. IV nurse was consulted for PICC placement as [facility] would like to have a trial run of paralytics with increased PEEP. Patient was hypoxic on ABG this a.m. and her BMP is still pending. Hospitalist Physical - Constitutional Vitals: Temp Pulse Resp BP Pulse Ox 97.8 F 91 H 27 H 94/62 90 07/15/20 12:00 07/15/20 13:00 07/15/20 13:00 07/15/20 13:07/15/20 13:00 General appearance: Present: mild distress, obese - EENT ENT: poor dentition - Neck Neck: Present: supple - Respiratory Respiratory effort: normal Respiratory: bilateral: diminished - Cardiovascular Rhythm: regular Heart Sounds: Present: S1 & S2. Absent: systolic murmur, diastolic murmur - Extremities Extremities: no ischemia, pulses intact, pulses symmetrical, No edema, normal temperature, normal color Peripheral Pulses: within normal limits - Abdominal General gastrointestinal: soft, non-tender, non-distended, normal bowel sounds - Integumentary Integumentary: Present: clear, warm, dry - Psychiatric Psychiatric: other (sedated) - Neurologic Neurologic: moves all extremities - Allied Health Allied health notes reviewed: nursing, RT HEART Score - HEART Score Troponin: Troponin T < 0.010 ng/mL (0.00-0.029) 07/07/20 00:22 Results - Labs CBC & Chem 7: 07/14/20 04:31 07/14/20 04:31 Labs: Laboratory Last Values WBC 9.5 K/mm3 (4.5-11.0) 07/14/20 04:31 RBC 4.35 M/mm3 (3.65-5.03) 07/14/20 04:31 Hgb 11.3 gm/dl (10.1-14.3) 07/14/20 04:31 Hct 34.5 % (30.3-42.9) 07/14/20 04:31 MCV 79 fl (79-97) 07/14/20 04:31 MCH 26 pg (28-32) L 07/14/20 04:31 MCHC 33 % (30-34) 07/14/20 04:31 RDW 14.7 % (13.2-15.2) 07/14/20 04:31 Plt Count 134 K/mm3 (140-440) L 07/14/20 04:31 Lymph % (Auto) 4.3 % (13.4-35.0) L 07/09/20 06:51 Warren % (Auto) 3.6 % (0.0-7.3) 07/09/20 06:51 Eos % (Auto) 0.6 % (0.0-4.3) 07/09/20 06:51 Baso % (Auto) 0.3 % (0.0-1.8) 07/09/20 06:51 Lymph # (Auto) 0.4 K/mm3 (1.2-5.4) L 07/09/20 06:51 Warren # (Auto) 0.4 K/mm3 (0.0-0.8) 07/09/20 06:51 Eos # (Auto) 0.1 K/mm3 (0.0-0.4) 07/09/20 06:51 Baso # (Auto) 0.0 K/mm3 (0.0-0.1) 07/09/20 06:51 Add Manual Diff Complete 07/12/20 05:18 Total Counted 100 07/12/20 05:18 Seg Neutrophils % Lay Out Worker 07/12/20 05:18 Seg Neuts % (Manual) 93.0 % (40.0-70.0) H 07/12/20 05:18 Band Neutrophils % 4.0 % 07/07/20 02:42 Lymphocytes % (Manual) 4.0 % (13.4-35.0) L 07/12/20 05:18 Monocytes % (Manual) 3.0 % (0.0-7.3) 07/12/20 05:18 Metamyelocytes % 1.0 % 07/10/20 05:25 Nucleated RBC % Not Reportable 07/12/20 05:18 Seg Neutrophils # 9.1 K/mm3 (1.8-7.7) H 07/09/20 06:51 Seg Neutrophils # Man 11.7 K/mm3 (1.8-7.7) H 07/12/20 05:18 Band Neutrophils # 0.0 K/mm3 07/12/20 05:18 Lymphocytes # (Manual) 0.5 K/mm3 (1.2-5.4) L 07/12/20 05:18 Abs React Lymphs (Man) 0.0 K/mm3 07/12/20 05:18 Monocytes # (Manual) 0.4 K/mm3 (0.0-0.8) 07/12/20 05:18 Eosinophils # (Manual) 0.0 K/mm3 (0.0-0.4) 07/12/20 05:18 Basophils # (Manual) 0.0 K/mm3 (0.0-0.1) 07/12/20 05:18 Metamyelocytes # 0.0 K/mm3 07/12/20 05:18 Myelocytes # 0.0 K/mm3 07/12/20 05:18 Promyelocytes # 0.0 K/mm3 07/12/20 05:18 Blast Cells # 0.0 K/mm3 07/12/20 05:18 WBC Morphology Not Reportable 07/12/20 05:18 Hypersegmented Neuts Not Reportable 07/12/20 05:18 Hyposegmented Neuts Not Reportable 07/12/20 05:18 Hypogranular Neuts Not Reportable 07/12/20 05:18 Smudge Cells Not Reportable 07/12/20 05:18 Toxic Granulation Not Reportable 07/12/20 05:18 Toxic Vacuolation Not Reportable 07/12/20 05:18 Dohle Bodies Not Reportable 07/12/20 05:18 Pelger-Huet Anomaly Not Reportable 07/12/20 05:18 Rudy Rods Not Reportable 07/12/20 05:18 Platelet Estimate Consistent w auto 07/12/20 05:18 Clumped Platelets Not Reportable 07/12/20 05:18 Plt Clumps, EDTA Not Reportable 07/12/20 05:18 Large Platelets Not Reportable 07/12/20 05:18 Giant Platelets Not Reportable 07/12/20 05:18 Platelet Satelliting Not Reportable 07/12/20 05:18 Plt Morphology Comment Not Reportable 07/12/20 05:18 RBC Morphology Not Reportable 07/12/20 05:18 Dimorphic RBCs Not Reportable 07/12/20 05:18 Polychromasia Not Reportable 07/12/20 05:18 Hypochromasia Not Reportable 07/12/20 05:18 Poikilocytosis Not Reportable 07/12/20 05:18 Anisocytosis 1+ 07/12/20 05:18 Microcytosis Not Reportable 07/12/20 05:18 Macrocytosis Not Reportable 07/12/20 05:18 Spherocytes Not Reportable 07/12/20 05:18 Pappenheimer Bodies Not Reportable 07/12/20 05:18 Sickle Cells Not Reportable 07/12/20 05:18 Target Cells Not Reportable 07/12/20 05:18 Tear Drop Cells Not Reportable 07/12/20 05:18 Ovalocytes Not Reportable 07/12/20 05:18 Helmet Cells Not Reportable 07/12/20 05:18 [place] Bodies Not Reportable 07/12/20 05:18 Eckerman Rings Not Reportable 07/12/20 05:18 Eliane Cells Not Reportable 07/12/20 05:18 Bite Cells Not Reportable 07/12/20 05:18 Crenated Cell Not Reportable 07/12/20 05:18 Elliptocytes Not Reportable 07/12/20 05:18 Acanthocytes (Spur) Not Reportable 07/12/20 05:18 Rouleaux Not Reportable 07/12/20 05:18 Hemoglobin C Crystals Not Reportable 07/12/20 05:18 Schistocytes Not Reportable 07/12/20 05:18 Malaria parasites Not Reportable 07/12/20 05:18 Shreyas Bodies Not Reportable 07/12/20 05:18 Hem Pathologist Commnt No 07/12/20 05:18 PT 14.7 Sec. (12.2-14.9) 07/06/20 08:50 INR 1.15 (0.87-1.13) H 07/06/20 08:50 APTT 25.9 Sec. (24.2-36.6) 07/06/20 08:50 D-Dimer 1786.87 ng/mlDDU (0-234) H 07/10/20 05:25 ABG pH 7.280 (7.320-7.450) L 07/15/20 03:09 POC ABG pCO2 46.3 mmHg (32.0-48.0) 07/15/20 03:09 ABG pCO2 32.9 mm Hg 07/13/20 15:50 POC ABG pO2 57.7 mmHg (83-108) L 07/15/20 03:09 ABG pO2 73.7 mm Hg (80.0-90.0) L 07/13/20 15:50 POC ABG HCO3 21.3 07/15/20 03:09 ABG HCO3 21.0 mmol/L (20.0-26.0) 07/13/20 15:50 ABG O2 Saturation 94.5 % (95.0-99.0) L 07/13/20 15:50 ABG O2 Content 12.6 (0.0-44) 07/13/20 15:50 POC ABG Base Excess -5.4 07/15/20 03:09 ABG Base Excess -2.9 mmol/L (-2.0-3.0) L 07/13/20 15:50 ABG Hemoglobin 11.8 (12.0-17.5) L 07/15/20 03:09 ABG Oxyhemoglobin 79.3 (94-98) L 07/15/20 03:09 ABG Carboxyhemoglobin 1.3 % (0.0-5.0) 07/13/20 15:50 ABG Methemoglobin 0.3 (0.0-1.5) 07/15/20 03:09 ABG Sodium 136.6 mmol/L (136.0-145.0) 07/15/20 03:09 ABG Potassium 4.6 mmol/L (3.40-4.50) H 07/15/20 03:09 ABG Chloride 107.0 mmol/L (98-107) 07/15/20 03:09 ABG Glucose 340 mg/dL (65-95) H 07/15/20 03:09 Oxyhemoglobin 92.8 % (95.0-99.0) L 07/13/20 15:50 Carboxyhemoglobin 0.5 (0.5-1.5) 07/15/20 03:09 FiO2 100 07/15/20 03:09 Sodium 142 mmol/L (137-145) 07/14/20 04:31 Potassium 4.0 mmol/L (3.6-5.0) 07/14/20 04:31 Chloride 106.8 mmol/L (98-107) 07/14/20 04:31 Carbon Dioxide 21 mmol/L (22-30) L 07/14/20 04:31 Anion Gap 18 mmol/L 07/14/20 04:31 BUN 66 mg/dL (7-17) H 07/14/20 04:31 Creatinine 1.2 mg/dL (0.6-1.2) 07/14/20 04:31 Estimated GFR 44 ml/min 07/14/20 04:31 BUN/Creatinine Ratio 55 % 07/14/20 04:31 Glucose 139 mg/dL (65-100) H 07/14/20 04:31 POC Glucose 388 mg/dL (70-105) H 07/15/20 11:39 Hemoglobin A1c 11.8 % (4-6) H 07/06/20 15:44 Lactic Acid 1.60 mmol/L (0.7-2.0) 07/07/20 08:55 Calcium 9.2 mg/dL (8.4-10.2) 07/14/20 04:31 Ferritin 920.8 ng/mL (10.0-200.0) H 07/10/20 05:25 Total Bilirubin 1.00 mg/dL (0.1-1.2) 07/11/20 06:08 AST 38 units/L (5-40) 07/11/20 06:08 ALT 24 units/L (7-56) 07/11/20 06:08 Alkaline Phosphatase 107 units/L (35-129) 07/11/20 06:08 Lactate Dehydrogenase 683 units/L (91-180) H 07/06/20 15:44 Total Creatine Kinase 47 units/L (30-135) 07/07/20 00:22 CK-MB (CK-2) 1.6 ng/mL (0.0-4.0) 07/07/20 00:22 CK-MB (CK-2) Rel Index 3.4 (0-4) 07/07/20 00:22 Troponin T < 0.010 ng/mL (0.00-0.029) 07/07/20 00:22 C-Reactive Protein 2.80 mg/dL (0.00-1.30) H 07/10/20 05:25 NT-Pro-B Natriuret Pep 459.9 pg/mL (0-900) 07/07/20 14:31 Total Protein 6.8 g/dL (6.3-8.2) 07/11/20 06:08 Albumin 3.0 g/dL (3.9-5) L 07/11/20 06:08 Albumin/Globulin Ratio 0.8 % 07/11/20 06:08 Procalcitonin 7.48 ng/mL (<0.15) 07/06/20 15:44 TSH 0.420 mlU/mL (0.270-4.200) 07/08/20 05:07 Arterial Blood Glucose 340 mg/dL (65-95) H 07/15/20 03:09 Arterial Blood Ionized Calcium 5.0 mg/dL (4.6-5.3) 07/15/20 03:09 Urine Color Yellow (Yellow) 07/07/20 03:35 Urine Turbidity Clear (Clear) 07/07/20 03:35 Urine pH 5.0 (5.0-7.0) 07/07/20 03:35 Ur Specific [place] 1.026 (1.003-1.030) 07/07/20 03:35 Urine Protein 30 mg/dl mg/dL (Negative) 07/07/20 03:35 Urine Glucose (UA) >=500 mg/dL (Negative) 07/07/20 03:35 Urine Ketones Neg mg/dL (Negative) 07/07/20 03:35 Urine Blood Neg (Negative) 07/07/20 03:35 Urine Nitrite Neg (Negative) 07/07/20 03:35 Urine Bilirubin Neg (Negative) 07/07/20 03:35 Urine Urobilinogen 2.0 mg/dL (<2.0) 07/07/20 03:35 Ur Leukocyte Esterase Neg (Negative) 07/07/20 03:35 Urine WBC (Auto) < 1.0 /HPF (0.0-6.0) 07/07/20 03:35 Urine RBC (Auto) 0.0 /HPF (0.0-6.0) 07/07/20 03:35 U Epithel Cells (Auto) < 1.0 /HPF (0-13.0) 07/07/20 03:35 Urine Bacteria (Auto) 1+ /HPF (Negative) 07/07/20 03:35 Urine Osmolality 731 Mosm/kg 07/07/20 03:35 Urine Sodium 54 mmol/L 07/07/20 03:35 Coronavirus (PCR) Positive (Negative) A 07/06/20 09:26 - Diagnostic Impressions Diagnostic Impressions: Echocardiogram 07/08/20 09:36 Transthoracic Echocardiogram Indication: Chest pain BP: 129/66 HR: 67 Conclusions *The study is technically limited due to poor acoustic windows. *Global left ventricular systolic function is normal. *The estimated ejection fraction is greater than 55-60%. *Mild concentric left ventricular hypertrophy is observed. *There is trace of mitral regurgitation. *The right heart chambers are not well visualized. Findings Procedure Info: The study quality is poor. The study is technically limited due to poor acoustic windows. Left Ventricle: The left ventricular chamber size is normal. Mild concentric left ventricular hypertrophy is observed. Global left ventricular systolic function is normal. The estimated ejection fraction is 55-60%. Left Atrium: The left atrial chamber size is normal. Right Ventricle: The right ventricle is not well visualized. Right Atrium: The right atrium is not well visualized. Aortic Valve: The aortic valve leaflets are mildly thickened. There is no evidence of aortic regurgitation. There is no evidence of aortic stenosis. Mitral Valve: The mitral valve leaflets are mildly thickened. There is trace of mitral regurgitation. There is no evidence of mitral stenosis. Tricuspid Valve: The tricuspid valve is not well visualized. Pulmonic Valve: The pulmonic valve is not well visualized. Pericardium: There is no pericardial effusion. Aorta: There is no dilatation of the aortic root. Venous: The inferior vena cava appears normal in size. Measurements Chambers 2D Name Value Normal Range IVSd (2D) 1.02 cm (0.6 - 1.1) LVPWd (2D) 1.02 cm (0.6 - 1.1) LVIDd (2D) 4.88 cm (3.7 - 5.6) LVIDs (2D) 3.22 cm (2 - 3.8) LV FS (2D) 33.94 % - EF Teichholz (2D) 62.68 % - Ao root diameter (2D) 2.8 cm (2 - 3.7) Diastolic/Systolic Function Name Value Normal Range MV E-wave Vmax 0.37 m/sec - MV deceleration time 185.21 msec - MV A-wave Vmax 0.35 m/sec - MV E:A ratio 1.07 ratio - Aortic Valve Name Value Normal Range AV Vmax 1.29 m/sec - AV VTI 24.04 cm - AV peak gradient 6.69 mmHg - AV mean gradient 3.19 mmHg - LVOT diameter 2.01 cm - LVOT Vmax 1.07 m/sec - LVOT VTI 21.78 cm - LVOT peak gradient 4.56 mmHg - LVOT mean gradient 2.37 mmHg - SV LVOT 69.26 ml - LEOBARDO (continuity Vmax) 2.63 cm2 - LEOBARDO (continuity VTI) 2.88 cm2 - Pulmonic Valve/Qp:Qs Name Value Normal Range PV acceleration time 95.15 msec - Bela/IV: Voiding Method Indwelling Catheter Active Medications - Current Medications Current Medications: Generic Name Dose Route Start Last Admin Trade Name Freq PRN Reason Stop Dose Admin Acetaminophen 650 mg 07/06/20 11:01 07/09/20 16:35 Acetaminophen 325 Mg Tab PO 650 mg Q4H PRN Administration Pain MILD(1-3)/Fever >100.5/OHARA Acetaminophen 650 mg 07/08/20 01:34 07/08/20 02:04 Acetaminophen 650 Mg Rect Supp NH 650 mg Q4H PRN Administration PainMild (1-3),fever>100.5,OHARA Al Hydrox/Mg Hydrox/Simethicone 30 ml 07/06/20 11:01 Alum-Mag Hydroxide-Simethicone [phone]/5ml Oral Liqd 30 Ml PO Q4H PRN Indigestion Lipase/Protease/Amylase 1 each 07/13/20 11:45 Lipase 10,500/Protease 25,000/Amylase 43,750 (Units) Dr Cap FEEDTUBE PRN PRN For Clogged Feeding Tube Ascorbic Acid 500 mg 07/06/20 16:00 07/15/20 09:46 Ascorbic Acid 500 Mg Tab PO 500 mg QDAY MITALI Administration Dextrose 50 ml 07/06/20 11:01 Dextrose 50% In Water (25gm) 50 Ml Syringe IV Q30MIN PRN Hypoglycemia Protocol Docusate Sodium 100 mg 07/14/20 10:00 07/15/20 09:46 Docusate Sodium 100 Mg/10 Ml Oral Liqd FEEDTUBE 100 mg BID MITALI Administration Famotidine 20 mg 07/07/20 10:00 07/15/20 09:46 Famotidine 20 Mg/2 Ml Inj IV 20 mg DAILY MITALI Administration Fentanyl 50 mcg 07/13/20 10:23 Fentanyl 100 Mcg/2 Ml Inj IV Q10MIN PRN ANALGESIA Haloperidol Lactate 5 mg 07/10/20 09:00 07/13/20 03:27 Haloperidol Lactate 5 Mg/1 Ml Inj IV 5 mg Q6H PRN Administration Agitation Heparin Sodium (Porcine) 7,500 unit 07/07/20 14:00 07/15/20 13:53 Heparin 5,000 Unit/1 Ml Vial SUB-Q 7,500 unit Q8HR MITALI Administration Hydrophilic Ointment 1 applic 07/13/20 10:23 Lip Therapy Vaseline TP Q2HR PRN Dry Lips Fentanyl Citrate 2,000 mcg in 100 mls @ 3.475 mls/hr 07/13/20 11:00 07/15/20 13:53 Fentanyl Drip Premix IV 4 mcg/kg/hr TITR MITALI 13.9 mls/hr Administration Protocol 1 MCG/KG/HR Midazolam HCl 100 mg/ Sodium 100 mls @ 2 mls/hr 07/15/20 11:00 07/15/20 13:58 Chloride IV 4 mg/hr TITR MITALI 4 mls/hr Titration Protocol 2 MG/HR Cisatracurium Besylate 10 mg/ 100 mls @ 9.21 mls/hr 07/15/20 11:00 Sodium Chloride IV 07/17/20 10:59 TITR MITALI Protocol 0.25 MCG/KG/MIN Insulin Human Isoph/Insulin Regular 22 unit 07/15/20 17:00 Insulin Nph/Regular 70/30 Inj SUB-Q BIDDIAB MITALI Insulin Human Lispro 0 unit 07/07/20 09:00 07/15/20 12:02 Insulin Lispro 100 Unit/Ml SUB-Q 10 unit Q6HR [facility] Administration Protocol Lorazepam 0.5 mg 07/08/20 11:00 07/14/20 23:26 Lorazepam 2 Mg/Ml Vial IV 0.5 mg Q4H PRN Administration Anxiety Midazolam HCl 2 mg 07/15/20 10:48 Midazolam 2 Mg/2 Ml Inj IV Q10MIN PRN Sedation Multi-Ingred Cream/Lotion/Oil/Oint 1 applic 07/13/20 10:23 Mineral Oil/Petrolatum, White Ophth Oint 3.5 Gm OU Q4HR PRN Dry Eye(s) Multi-Ingred Cream/Lotion/Oil/Oint 1 applic 07/15/20 12:00 07/15/20 12:18 Mineral Oil/Petrolatum, White Ophth Oint 3.5 Gm OU Not Given Q6H [facility] Ondansetron HCl 4 mg 07/06/20 11:01 Ondansetron 4 Mg/2 Ml Inj IV Q8H PRN Nausea And Vomiting Oxycodone/Acetaminophen 1 tab 07/06/20 11:01 Oxycodone /Acetaminophen 5-325mg Tab PO Q6H PRN Pain, Moderate (4-6) Senna 8.6 mg 07/06/20 22:00 07/15/20 09:46 Sennosides 8.6 Mg Tab PO 8.6 mg Q12HR [facility] Administration Simple Syrup 15 ml 07/13/20 11:45 Simple Syrup 15 Ml FEEDTUBE PRN PRN Hypoglycemia Simple Syrup 30 ml 07/13/20 11:45 Simple Syrup 15 Ml FEEDTUBE PRN PRN Hypoglycemia Sodium Bicarbonate 325 mg 07/13/20 11:45 Sodium Bicarbonate 325 Mg Tab FEEDTUBE PRN PRN For Clogged Feeding Tube Sodium Chloride 10 ml 07/06/20 22:00 07/15/20 09:47 Sodium Chloride 0.9% 10 Ml Flush Syringe IV 10 ml BID MITALI Administration Sodium Chloride 10 ml 07/06/20 11:01 Sodium Chloride 0.9% 10 Ml Flush Syringe IV PRN PRN LINE FLUSH Sodium Chloride 5 ml 07/15/20 11:13 Sodium Chloride 0.9% 500 Ml Ivpb IV PRN PRN ART LINE Zinc Sulfate 220 mg 07/06/20 16:00 07/15/20 09:46 Zinc Sulfate 220 Mg Cap PO 220 mg QDAY MITALI Administration Nutrition/Malnutrition Assess - Dietary Evaluation Nutrition/Malnutrition Findings: Nutrition Notes Start: 07/13/20 10:55 Freq: Status: Active Protocol: Document 07/15/20 11:47 AL (Rec: 07/15/20 11:58 AL [id number]) Co-Sign 07/15/20 11:47 MK Nutrition Notes Initial or Follow up Reassessment Current Diagnosis Diabetes,Hypertension, Hyperlipidemia Other Pertinent Diagnosis COVID-19 (+) Current Diet Vital AF at 50 ml/hr Labs/Tests POC BG 388 07/14: BUN 66 Cr 1.2 Pertinent Medications Colace Humalog Height 5 ft 2 in Weight 61.4 kg Stokes Body Weight (kg) 50.00 BMI 24.7 Weight change and time frame wt change noted. Will follow up for fluctuations. Weight Status Appropriate Subjective/Other Information FU for TF start. PT tolerating Vital AF at 50 ml/hr. CARMEN resolved. Percent of energy/protein needs met: 100%/100% Burn Absent Trauma Absent GI Symptoms None Current % PO Negligible Minimum of two criteria No physical signs of malnutrition #1 Nutrition Diagnosis Inadequate oral intake Diagnosis Progress(for reassessment Continues documentation) Is patient on ventilator? Yes Is Patient Ambulatory and/or Out of Bed No REE-([place]-St. Jeor-confined to bed) 1310.688 Kcal/Kg value to use for calculation 23 Approximate Energy Requirements Using 1412 kcal/Kg Calculation Used for Recommendations Kcal/kg Additional Notes Pro: 83-139 g (1.2-2.0 kcal/kg ) Fluid: 1 ml/kcal or per MD order Nutrition Intervention Change Diet Order: Continue TF Nutrition Support: Vital AF 1.2 at 50 ml/hr Flush 100 ml/hr Kcal 1,440 Protein (gm) 90 Fluid (mL) 1,003 Goal #1 Meet at least 75% of total energy and protein needs. Anticipated Discharge Needs: Unable to determine at this time Follow-Up By: 07/20/20 Additional Comments F/U for TF tolerance, BG, and wt status <PONCE MOREJON R - Last Filed: 07/17/20 12:46> Assessment and Plan Assessment and plan: I saw and evaluated the patient. I agree with the findings and the plan of care as documented in the Nurse Practitioner's~note, with the following corrections and additions. The high probability of a clinically significant, sudden or life threatening deterioration of the [CNC, CVS, respiratory, renal] system(s) required my full and direct attention, intervention and personal management. The aggregate cri tical care time was [35] minutes. This time is in addition to time spent performing reported procedures but includes the following: [x] Data Review and interpretation [x] Patient assessment and monitoring of vital signs [x] Documentation [x] Medication orders and management Hospitalist Physical - Constitutional Vitals: Temp Pulse Resp BP Pulse Ox 99.0 F 110 H 22 103/58 93 07/17/20 12:00 07/17/20 12:00 07/17/20 12:00 07/17/20 12:00 07/17/20 12:00 HEART Score - HEART Score Troponin: Troponin T < 0.010 ng/mL (0.00-0.029) 07/07/20 00:22 Results - Labs CBC & Chem 7: 07/17/20 Unknown 07/17/20 Unknown Labs: Laboratory Last Values WBC 14.1 K/mm3 (4.5-11.0) H 07/17/20 Unknown RBC 3.84 M/mm3 (3.65-5.03) 07/17/20 Unknown Hgb 9.8 gm/dl (10.1-14.3) L 07/17/20 Unknown Hct 31.6 % (30.3-42.9) 07/17/20 Unknown MCV 82 fl (79-97) 07/17/20 Unknown MCH 26 pg (28-32) L 07/17/20 Unknown MCHC 31 % (30-34) 07/17/20 Unknown RDW 15.8 % (13.2-15.2) H 07/17/20 Unknown Plt Count 74 K/mm3 (140-440) L 07/17/20 Unknown Lymph % (Auto) 4.3 % (13.4-35.0) L 07/09/20 06:51 Warren % (Auto) 3.6 % (0.0-7.3) 07/09/20 06:51 Eos % (Auto) 0.6 % (0.0-4.3) 07/09/20 06:51 Baso % (Auto) 0.3 % (0.0-1.8) 07/09/20 06:51 Lymph # (Auto) 0.4 K/mm3 (1.2-5.4) L 07/09/20 06:51 Warren # (Auto) 0.4 K/mm3 (0.0-0.8) 07/09/20 06:51 Eos # (Auto) 0.1 K/mm3 (0.0-0.4) 07/09/20 06:51 Baso # (Auto) 0.0 K/mm3 (0.0-0.1) 07/09/20 06:51 Add Manual Diff Complete 07/12/20 05:18 Total Counted 100 07/12/20 05:18 Seg Neutrophils % Lay Out Worker 07/12/20 05:18 Seg Neuts % (Manual) 93.0 % (40.0-70.0) H 07/12/20 05:18 Band Neutrophils % 4.0 % 07/07/20 02:42 Lymphocytes % (Manual) 4.0 % (13.4-35.0) L 07/12/20 05:18 Monocytes % (Manual) 3.0 % (0.0-7.3) 07/12/20 05:18 Metamyelocytes % 1.0 % 07/10/20 05:25 Nucleated RBC % Not Reportable 07/12/20 05:18 Seg Neutrophils # 9.1 K/mm3 (1.8-7.7) H 07/09/20 06:51 Seg Neutrophils # Man 11.7 K/mm3 (1.8-7.7) H 07/12/20 05:18 Band Neutrophils # 0.0 K/mm3 07/12/20 05:18 Lymphocytes # (Manual) 0.5 K/mm3 (1.2-5.4) L 07/12/20 05:18 Abs React Lymphs (Man) 0.0 K/mm3 07/12/20 05:18 Monocytes # (Manual) 0.4 K/mm3 (0.0-0.8) 07/12/20 05:18 Eosinophils # (Manual) 0.0 K/mm3 (0.0-0.4) 07/12/20 05:18 Basophils # (Manual) 0.0 K/mm3 (0.0-0.1) 07/12/20 05:18 Metamyelocytes # 0.0 K/mm3 07/12/20 05:18 Myelocytes # 0.0 K/mm3 07/12/20 05:18 Promyelocytes # 0.0 K/mm3 07/12/20 05:18 Blast Cells # 0.0 K/mm3 07/12/20 05:18 WBC Morphology Not Reportable 07/12/20 05:18 Hypersegmented Neuts Not Reportable 07/12/20 05:18 Hyposegmented Neuts Not Reportable 07/12/20 05:18 Hypogranular Neuts Not Reportable 07/12/20 05:18 Smudge Cells Not Reportable 07/12/20 05:18 Toxic Granulation Not Reportable 07/12/20 05:18 Toxic Vacuolation Not Reportable 07/12/20 05:18 Dohle Bodies Not Reportable 07/12/20 05:18 Pelger-Huet Anomaly Not Reportable 07/12/20 05:18 Rudy Rods Not Reportable 07/12/20 05:18 Platelet Estimate Consistent w auto 07/12/20 05:18 Clumped Platelets Not Reportable 07/12/20 05:18 Plt Clumps, EDTA Not Reportable 07/12/20 05:18 Large Platelets Not Reportable 07/12/20 05:18 Giant Platelets Not Reportable 07/12/20 05:18 Platelet Satelliting Not Reportable 07/12/20 05:18 Plt Morphology Comment Not Reportable 07/12/20 05:18 RBC Morphology Not Reportable 07/12/20 05:18 Dimorphic RBCs Not Reportable 07/12/20 05:18 Polychromasia Not Reportable 07/12/20 05:18 Hypochromasia Not Reportable 07/12/20 05:18 Poikilocytosis Not Reportable 07/12/20 05:18 Anisocytosis 1+ 07/12/20 05:18 Microcytosis Not Reportable 07/12/20 05:18 Macrocytosis Not Reportable 07/12/20 05:18 Spherocytes Not Reportable 07/12/20 05:18 Pappenheimer Bodies Not Reportable 07/12/20 05:18 Sickle Cells Not Reportable 07/12/20 05:18 Target Cells Not Reportable 07/12/20 05:18 Tear Drop Cells Not Reportable 07/12/20 05:18 Ovalocytes Not Reportable 07/12/20 05:18 Helmet Cells Not Reportable 07/12/20 05:18 [place] Bodies Not Reportable 07/12/20 05:18 [place] Rings Not Reportable 07/12/20 05:18 [place] Cells Not Reportable 07/12/20 05:18 Bite Cells Not Reportable 07/12/20 05:18 Crenated Cell Not Reportable 07/12/20 05:18 Elliptocytes Not Reportable 07/12/20 05:18 Acanthocytes (Spur) Not Reportable 07/12/20 05:18 Rouleaux Not Reportable 07/12/20 05:18 Hemoglobin C Crystals Not Reportable 07/12/20 05:18 Schistocytes Not Reportable 07/12/20 05:18 Malaria parasites Not Reportable 07/12/20 05:18 Shreyas Bodies Not Reportable 07/12/20 05:18 Hem Pathologist Commnt No 07/12/20 05:18 PT 14.7 Sec. (12.2-14.9) 07/06/20 08:50 INR 1.15 (0.87-1.13) H 07/06/20 08:50 APTT 25.9 Sec. (24.2-36.6) 07/06/20 08:50 D-Dimer 1786.87 ng/mlDDU (0-234) H 07/10/20 05:25 ABG pH 7.209 (7.320-7.450) L 07/17/20 05:10 POC ABG pCO2 62.7 mmHg (32.0-48.0) H 07/17/20 05:10 ABG pCO2 32.9 mm Hg 07/13/20 15:50 POC ABG pO2 60.6 mmHg (83-108) L 07/17/20 05:10 ABG pO2 73.7 mm Hg (80.0-90.0) L 07/13/20 15:50 POC ABG HCO3 24.5 07/17/20 05:10 ABG HCO3 21.0 mmol/L (20.0-26.0) 07/13/20 15:50 ABG O2 Saturation 94.5 % (95.0-99.0) L 07/13/20 15:50 ABG O2 Content 12.6 (0.0-44) 07/13/20 15:50 POC ABG Base Excess -4.0 07/17/20 05:10 ABG Base Excess -2.9 mmol/L (-2.0-3.0) L 07/13/20 15:50 ABG Hemoglobin 10.7 (12.0-17.5) L 07/17/20 05:10 ABG Oxyhemoglobin 84 (94-98) L 07/17/20 05:10 ABG Carboxyhemoglobin 1.3 % (0.0-5.0) 07/13/20 15:50 ABG Methemoglobin 0 (0.0-1.5) 07/17/20 05:10 ABG Sodium 138.9 mmol/L (136.0-145.0) 07/17/20 05:10 ABG Potassium 4.5 mmol/L (3.40-4.50) 07/17/20 05:10 ABG Chloride 106.0 mmol/L (98-107) 07/17/20 05:10 ABG Glucose 450 mg/dL (65-95) H 07/17/20 05:10 Oxyhemoglobin 92.8 % (95.0-99.0) L 07/13/20 15:50 Carboxyhemoglobin 1.1 (0.5-1.5) 07/17/20 05:10 FiO2 60 07/17/20 05:10 Sodium 147 mmol/L (137-145) H D 07/17/20 Unknown Potassium 4.8 mmol/L (3.6-5.0) 07/17/20 Unknown Chloride 107.8 mmol/L (98-107) H 07/17/20 Unknown Carbon Dioxide 29 mmol/L (22-30) D 07/17/20 Unknown Anion Gap 15 mmol/L 07/17/20 Unknown BUN 129 mg/dL (7-17) H 07/17/20 Unknown Creatinine 2.2 mg/dL (0.6-1.2) H 07/17/20 Unknown Estimated GFR 22 ml/min 07/17/20 Unknown BUN/Creatinine Ratio 59 % 07/17/20 Unknown Glucose 471 mg/dL (65-100) H 07/17/20 Unknown POC Glucose 333 mg/dL (70-105) H 07/17/20 05:10 Hemoglobin A1c 11.8 % (4-6) H 07/06/20 15:44 Lactic Acid 1.60 mmol/L (0.7-2.0) 07/07/20 08:55 Calcium 7.8 mg/dL (8.4-10.2) L 07/17/20 Unknown Ferritin 920.8 ng/mL (10.0-200.0) H 07/10/20 05:25 Total Bilirubin 1.00 mg/dL (0.1-1.2) 07/11/20 06:08 AST 38 units/L (5-40) 07/11/20 06:08 ALT 24 units/L (7-56) 07/11/20 06:08 Alkaline Phosphatase 107 units/L (35-129) 07/11/20 06:08 Lactate Dehydrogenase 683 units/L (91-180) H 07/06/20 15:44 Total Creatine Kinase 47 units/L (30-135) 07/07/20 00:22 CK-MB (CK-2) 1.6 ng/mL (0.0-4.0) 07/07/20 00:22 CK-MB (CK-2) Rel Index 3.4 (0-4) 07/07/20 00:22 Troponin T < 0.010 ng/mL (0.00-0.029) 07/07/20 00:22 C-Reactive Protein 2.80 mg/dL (0.00-1.30) H 07/10/20 05:25 NT-Pro-B Natriuret Pep 459.9 pg/mL (0-900) 07/07/20 14:31 Total Protein 6.8 g/dL (6.3-8.2) 07/11/20 06:08 Albumin 3.0 g/dL (3.9-5) L 07/11/20 06:08 Albumin/Globulin Ratio 0.8 % 07/11/20 06:08 Triglycerides 215 mg/dL (2-149) H 07/16/20 Unknown Procalcitonin 7.48 ng/mL (<0.15) 07/06/20 15:44 TSH 0.420 mlU/mL (0.270-4.200) 07/08/20 05:07 Arterial Blood Glucose 450 mg/dL (65-95) H 07/17/20 05:10 Arterial Blood Ionized Calcium 4.7 mg/dL (4.6-5.3) 07/17/20 05:10 Urine Color [place] (Yellow) 07/16/20 11:30 Urine Turbidity Cloudy (Clear) 07/16/20 11:30 Urine pH 5.0 (5.0-7.0) 07/16/20 11:30 Ur Specific [place] 1.018 (1.003-1.030) 07/16/20 11:30 Urine Protein 30 mg/dl mg/dL (Negative) 07/16/20 11:30 Urine Glucose (UA) Neg mg/dL (Negative) 07/16/20 11:30 Urine Ketones Neg mg/dL (Negative) 07/16/20 11:30 Urine Blood Mod (Negative) 07/16/20 11:30 Urine Nitrite Neg (Negative) 07/16/20 11:30 Urine Bilirubin Neg (Negative) 07/16/20 11:30 Urine Urobilinogen 4.0 mg/dL (<2.0) 07/16/20 11:30 Ur Leukocyte Esterase Tr (Negative) 07/16/20 11:30 Urine WBC (Auto) 11.0 /HPF (0.0-6.0) H 07/16/20 11:30 Urine RBC (Auto) 22.0 /HPF (0.0-6.0) 07/16/20 11:30 U Epithel Cells (Auto) 2.0 /HPF (0-13.0) 07/16/20 11:30 Urine Bacteria (Auto) 1+ /HPF (Negative) 07/07/20 03:35 Urine Mucus Few /HPF 07/16/20 11:30 Urine Osmolality 731 Mosm/kg 07/07/20 03:35 Urine Creatinine 149.3 mg/dL (0.1-20.0) H 07/16/20 11:30 Urine Sodium 24 mmol/L 07/16/20 11:30 Urine Urea Nitrogen 457 07/16/20 11:30 Coronavirus (PCR) Positive (Negative) A 07/06/20 09:26 Microbiology: Microbiology 07/13/20 10:46 Tracheal Aspirate Sputum Culture - Final 07/16/20 11:30 Urine,Clean Catch Urine Culture - Preliminary NO GROWTH AFTER 24 HOURS - Diagnostic Impressions Diagnostic Impressions: Echocardiogram 07/08/20 09:36 Transthoracic Echocardiogram Indication: Chest pain BP: 129/66 HR: 67 Conclusions *The study is technically limited due to poor acoustic windows. *Global left ventricular systolic function is normal. *The estimated ejection fraction is greater than 55-60%. *Mild concentric left ventricular hypertrophy is observed. *There is trace of mitral regurgitation. *The right heart chambers are not well visualized. Findings Procedure Info: The study quality is poor. The study is technically limited due to poor acoustic windows. Left Ventricle: The left ventricular chamber size is normal. Mild concentric left ventricular hypertrophy is observed. Global left ventricular systolic function is normal. The estimated ejection fraction is 55-60%. Left Atrium: The left atrial chamber size is normal. Right Ventricle: The right ventricle is not well visualized. Right Atrium: The right atrium is not well visualized. Aortic Valve: The aortic valve leaflets are mildly thickened. There is no evidence of aortic regurgitation. There is no evidence of aortic stenosis. Mitral Valve: The mitral valve leaflets are mildly thickened. There is trace of mitral regurgitation. There is no evidence of mitral stenosis. Tricuspid Valve: The tricuspid valve is not well visualized. Pulmonic Valve: The pulmonic valve is not well visualized. Pericardium: There is no pericardial effusion. Aorta: There is no dilatation of the aortic root. Venous: The inferior vena cava appears normal in size. Measurements Chambers 2D Name Value Normal Range IVSd (2D) 1.02 cm (0.6 - 1.1) LVPWd (2D) 1.02 cm (0.6 - 1.1) LVIDd (2D) 4.88 cm (3.7 - 5.6) LVIDs (2D) 3.22 cm (2 - 3.8) LV FS (2D) 33.94 % - EF Teichholz (2D) 62.68 % - Ao root diameter (2D) 2.8 cm (2 - 3.7) Diastolic/Systolic Function Name Value Normal Range MV E-wave Vmax 0.37 m/sec - MV deceleration time 185.21 msec - MV A-wave Vmax 0.35 m/sec - MV E:A ratio 1.07 ratio - Aortic Valve Name Value Normal Range AV Vmax 1.29 m/sec - AV VTI 24.04 cm - AV peak gradient 6.69 mmHg - AV mean gradient 3.19 mmHg - LVOT diameter 2.01 cm - LVOT Vmax 1.07 m/sec - LVOT VTI 21.78 cm - LVOT peak gradient 4.56 mmHg - LVOT mean gradient 2.37 mmHg - SV LVOT 69.26 ml - LEOBARDO (continuity Vmax) 2.63 cm2 - LEOBARDO (continuity VTI) 2.88 cm2 - Pulmonic Valve/Qp:Qs Name Value Normal Range PV acceleration time 95.15 msec - Beal/IV: Voiding Method Indwelling Catheter Active Medications - Current Medications Current Medications: Generic Name Dose Route Start Last Admin Trade Name Freq PRN Reason Stop Dose Admin Acetaminophen 650 mg 07/06/20 11:01 07/09/20 16:35 Acetaminophen 325 Mg Tab PO 650 mg Q4H PRN Administration Pain MILD(1-3)/Fever >100.5/OHARA Acetaminophen 650 mg 07/08/20 01:34 07/08/20 02:04 Acetaminophen 650 Mg Rect Supp [place] 650 mg Q4H PRN Administration PainMild (1-3),fever>100.5,OHARA Al Hydrox/Mg Hydrox/Simethicone 30 ml 07/06/20 11:01 Alum-Mag Hydroxide-Simethicone [id number]/5ml Oral Liqd 30 Ml PO Q4H PRN Indigestion Lipase/Protease/Amylase 1 each 07/13/20 11:45 Lipase 10,500/Protease 25,000/Amylase 43,750 (Units) Dr Juárez FEEDTUBE PRN PRN For Clogged Feeding Tube Ascorbic Acid 500 mg 07/06/20 16:00 07/17/20 10:52 Ascorbic Acid 500 Mg Tab PO 500 mg QDAY MITALI Administration Dextrose 50 ml 07/06/20 11:01 Dextrose 50% In Water (25gm) 50 Ml Syringe IV Q30MIN PRN Hypoglycemia Protocol Docusate Sodium 100 mg 07/14/20 10:00 07/17/20 10:52 Docusate Sodium 100 Mg/10 Ml Oral Liqd FEEDTUBE 100 mg BID MITALI Administration Famotidine 20 mg 07/07/20 10:00 07/17/20 10:52 Famotidine 20 Mg/2 Ml Inj IV 20 mg DAILY MITALI Administration Fentanyl 50 mcg 07/13/20 10:23 Fentanyl 100 Mcg/2 Ml Inj IV Q10MIN PRN ANALGESIA Haloperidol Lactate 5 mg 07/10/20 09:00 07/13/20 03:27 Haloperidol Lactate 5 Mg/1 Ml Inj IV 5 mg Q6H PRN Administration Agitation Heparin Sodium (Porcine) 7,500 unit 07/07/20 14:00 07/17/20 05:38 Heparin 5,000 Unit/1 Ml Vial SUB-Q 7,500 unit Q8HR MITALI Administration Hydrocortisone Sodium Succinate 100 mg 07/16/20 15:00 07/17/20 05:35 Hydrocortisone Sod Succ 100 Mg/2 Ml Vial IV 100 mg Q8HR MITALI Administration Hydrophilic Ointment 1 applic 07/13/20 10:23 Lip Therapy Vaseline TP Q2HR PRN Dry Lips Fentanyl Citrate 2,000 mcg in 100 mls @ 3.475 mls/hr 07/13/20 11:00 07/17/20 05:35 Fentanyl Drip Premix IV 4 mcg/kg/hr TITR MITALI 13.9 mls/hr Administration Protocol 1 MCG/KG/HR Midazolam HCl 100 mg/ Sodium 100 mls @ 2 mls/hr 07/15/20 11:00 07/17/20 04:32 Chloride IV 2 mg/hr TITR MITALI 2 mls/hr Administration Protocol 2 MG/HR Sodium Bicarbonate 150 meq/ 1,150 mls @ 75 mls/hr 07/16/20 11:00 07/17/20 04:31 Dextrose IV 75 mls/hr DIRECT MITALI Administration Insulin Human Isoph/Insulin Regular 30 unit 07/16/20 17:00 07/17/20 08:05 Insulin Nph/Regular 70/30 Inj SUB-Q 30 unit BIDDIAB MITALI Administration Insulin Human Lispro 0 unit 07/16/20 12:00 07/17/20 05:38 Insulin Lispro 100 Unit/Ml SUB-Q 6 unit Q6HR MITALI Administration Protocol Lorazepam 0.5 mg 07/08/20 11:00 07/14/20 23:26 Lorazepam 2 Mg/Ml Vial IV 0.5 mg Q4H PRN Administration Anxiety Midazolam HCl 2 mg 07/15/20 10:48 Midazolam 2 Mg/2 Ml Inj IV Q10MIN PRN Sedation Multi-Ingred Cream/Lotion/Oil/Oint 1 applic 07/13/20 10:23 Mineral Oil/Petrolatum, White Ophth Oint 3.5 Gm OU Q4HR PRN Dry Eye(s) Multi-Ingred Cream/Lotion/Oil/Oint 1 applic 07/15/20 12:00 07/17/20 05:35 Mineral Oil/Petrolatum, White Ophth Oint 3.5 Gm OU 1 applic Q6H MITALI Administration Ondansetron HCl 4 mg 07/06/20 11:01 Ondansetron 4 Mg/2 Ml Inj IV Q8H PRN Nausea And Vomiting Oxycodone/Acetaminophen 1 tab 07/06/20 11:01 Oxycodone /Acetaminophen 5-325mg Tab PO Q6H PRN Pain, Moderate (4-6) Senna 8.6 mg 07/06/20 22:00 07/17/20 10:52 Sennosides 8.6 Mg Tab PO Not Given Q12HR MITALI Simple Syrup 15 ml 07/13/20 11:45 Simple Syrup 15 Ml FEEDTUBE PRN PRN Hypoglycemia Simple Syrup 30 ml 07/13/20 11:45 Simple Syrup 15 Ml FEEDTUBE PRN PRN Hypoglycemia Sodium Bicarbonate 325 mg 07/13/20 11:45 Sodium Bicarbonate 325 Mg Tab FEEDTUBE PRN PRN For Clogged Feeding Tube Sodium Chloride 10 ml 07/06/20 22:00 07/17/20 10:52 Sodium Chloride 0.9% 10 Ml Flush Syringe IV 10 ml BID MITALI Administration Sodium Chloride 10 ml 07/06/20 11:01 Sodium Chloride 0.9% 10 Ml Flush Syringe IV PRN PRN LINE FLUSH Sodium Chloride 5 ml 07/15/20 11:13 Sodium Chloride 0.9% 500 Ml Ivpb IV PRN PRN ART LINE Zinc Sulfate 220 mg 07/06/20 16:00 07/17/20 10:52 Zinc Sulfate 220 Mg Cap PO 220 mg QDAY MITALI Administration Nutrition/Malnutrition Assess - Dietary Evaluation Nutrition/Malnutrition Findings: Nutrition Notes Start: 07/13/20 10:55 Freq: Status: Active Protocol: Document 07/15/20 11:47 AL (Rec: 07/15/20 11:58 AL [id number]) Co-Sign 07/15/20 11:47 MK Nutrition Notes Initial or Follow up Reassessment Current Diagnosis Diabetes,Hypertension, Hyperlipidemia Other Pertinent Diagnosis COVID-19 (+) Current Diet Vital AF at 50 ml/hr Labs/Tests POC BG 388 07/14: BUN 66 Cr 1.2 Pertinent Medications Colace Humalog Height 5 ft 2 in Weight 61.4 kg Stokes Body Weight (kg) 50.00 BMI 24.7 Weight change and time frame wt change noted. Will follow up for fluctuations. Weight Status Appropriate Subjective/Other Information FU for TF start. PT tolerating Vital AF at 50 ml/hr. CARMEN resolved. Percent of energy/protein needs met: 100%/100% Burn Absent Trauma Absent GI Symptoms None Current % PO Negligible Minimum of two criteria No physical signs of malnutrition #1 Nutrition Diagnosis Inadequate oral intake Diagnosis Progress(for reassessment Continues documentation) Is patient on ventilator? Yes Is Patient Ambulatory and/or Out of Bed No REE-([facility]-confined to bed) 1310.688 Kcal/Kg value to use for calculation 23 Approximate Energy Requirements Using 1412 kcal/Kg Calculation Used for Recommendations Kcal/kg Additional Notes Pro: 83-139 g (1.2-2.0 kcal/kg ) Fluid: 1 ml/kcal or per MD order Nutrition Intervention Change Diet Order: Continue TF Nutrition Support: Vital AF 1.2 at 50 ml/hr Flush 100 ml/hr Kcal 1,440 Protein (gm) 90 Fluid (mL) 1,003 Goal #1 Meet at least 75% of total energy and protein needs. Anticipated Discharge Needs: Unable to determine at this time Follow-Up By: 07/20/20 Additional Comments F/U for TF tolerance, BG, and wt status
[2020-07-15] MEDS: CISATRACURIUM 10 MG in SODIUM CHLORIDE 0.9% 95 ML IV SCH (16:00)
[2020-07-15] MEDS: INSULIN NPH/REGULAR 70/30 INJ SUB-Q SCH (17:35)
--- NOTE | 2020-07-15 18:38 | Event Note ---
Late entry I updated the patient's daughter, Rebecca, on patient's course of treatment. Rebecca stated that [facility] also updated her earlier. She has no further questions regarding her mother's treatment.
[2020-07-16] MEDS: CISATRACURIUM 10 MG in SODIUM CHLORIDE 0.9% 95 ML IV SCH ×2 (00:13→10:01)
[2020-07-16] MEDS: fentaNYL DRIP Premix 2,000 MCG/100 ML BAG IV SCH ×3 (03:42→20:24)
[2020-07-16] MEDS: MINERAL OIL/PETROLATUM, WHITE OPHTH OINT 3.5 GM OU SCH ×4 (06:40→23:34)
[2020-07-16] MEDS: HEPARIN 5,000 UNIT/1 ML VIAL SUB-Q SCH ×3 (06:42→21:49)
[2020-07-16] MEDS: INSULIN LISPRO 100 UNIT/ML SUB-Q SCH ×4 (06:42→23:40)
[2020-07-16] MEDS: INSULIN NPH/REGULAR 70/30 INJ SUB-Q SCH ×2 (08:00→17:29)
[2020-07-16] MEDS ORDERED: SODIUM CHLORIDE 0.9% 500 ML IVPB IV NR (09:49)
[2020-07-16] MEDS ORDERED: SODIUM CHLORIDE 0.9% 1000 ML 1,000 ML IV SCH (10:00)
[2020-07-16] MEDS: FAMOTIDINE 20 MG/2 ML INJ IV SCH (10:01)
[2020-07-16] MEDS: ZINC SULFATE 220 MG CAP PO SCH (10:01)
[2020-07-16] MEDS: ASCORBIC ACID 500 MG TAB PO SCH (10:01)
[2020-07-16] MEDS: SENNOSIDES 8.6 MG TAB PO SCH ×2 (10:06→21:41)
[2020-07-16] MEDS: DOCUSATE SODIUM 100 MG/10 ML ORAL LIQD FEEDTUBE SCH ×2 (10:06→21:41)
[2020-07-16] MEDS ORDERED: SODIUM BICARB 8.4% 50 MEQ/50 ML SYRINGE IV ONE ×2 (10:13)
[2020-07-16 10:37] LABS: BUN/Creatinine Ratio TNR; Blood Urea Nitrogen TNR mg/dL (7-17); Calcium TNR mg/dL (8.4-10.2)
[2020-07-16 10:38] LABS: Hemolysis Index TNR
[2020-07-16] MEDS ORDERED: SODIUM BICARBONATE 150 MEQ in DEXTROSE 5% IN WATER 1,000 ML IV SCH (11:00)
--- NOTE | 2020-07-16 11:03 | Progress Note ---
Assessment and Plan 69 y/o female, covid positive admitted with acute respiratory failure. 07/16/20: Stopping paralytic. Placed on bicarb drip and Bicarb pushes this am. If BP not improved with this will stop sedation all together. Bolused the normal saline that was ordered. Will increase long acting insulin today. Ok to feed. HOpeful to keep off pressors. Wean FiO2 for sats >88%. Guarded prognosis. Discussed changing feeds but about the same carbs in Vital and glucerna. Please call daughter to update her at least once over the weekend. I did stop her steroids on yesterday, could be relative adrenal insufficiency. 07/15/20: Will increase PEEP to 18 today. Unable to prone secondary to bilateral chest tubes. Continue tubes to suction until extubated if able to do so. may need to consider a trial of paralytics to help with oxygenation. Very very Guarded prognosis. Will check with nursing on vascular access, may need pressors with increase in PEEP. 07/14/20: Spoke with daughter over the phone. Updated her. Decreased Tidal Volume and increase PEEP. Will repeat ABG in the am or sooner pending clinical picture. Feeding and tolerating. Continue jo catheter for accurate I/O. Appreciate surgery help and continue chest tubes to wall suction until extubated. Guarded prognosis. 07/13/20: Will electively intubate today. Asked Anesthesia to help with this as patient will likely need paralytic therapy to assist with procedure. Will place on lung protective strategy. Spoke with daughter and explained that even though intubation is the next step, not a guarantee that she will improve with this. Prognosis is very very guarded. Will feed and place jo. Nutrition consult. 07/12/20: Will ask RT to attempt HFNC again today, also attempt to feed patient again. Also if able to allow daughter to at least call and speak to her if possible. Wean FiO2 back down on bipap as patient had significant desats this am but are better now. Guarded prognosis. Updated daughter this am. 07/11/20: Will attempt HFNC this afternoon. IF tolerates will allow patient to eat as well. Daughter wants to speak with her if possible. If she tolerates HFNC with eating then we will call her. Agree with D5W for insensible losses. Continue High dose steroids. Guarded prognosis. 07/10/20: Updated daughter this morning. Will hold on intubation as of right now. Will add scheduled haldol to see if this helps patient to relax and not fight the bipap mask. Really trying to avoid intubation given her COVID positive state and history of outcomes of ventilated patients. Will continue steroids at 60q6. Need to address nutrition soon. If intubated then will place NG/OG tube for supplementation. No further lasix as no improvement. Guarded prognosis. No current indication for ABG. Know that O2 will be marginal given requirements. Will cancel current order. 07/09/20: Continue steroids and Remdesivir. I increased steroids to 60q6 on yesterday. Continue NPO state and Continue bipap. Trying very had to not intubate but given lack of improvement and lack of nutrition, may have to electively do so in the next 12-24 hours. Will give a small dose of IV lasix today. Prognosis is very very guarded. Apparently is upstairs as well. 07/08/20: BNP was high normal, hold on lasix today. Continue steroids and remdesivir, may consider increasing steroids to BID. Continue bipap, NPO. Will give some ativan, very low dose PRN to see if this helps with work of breathing. Sinus ravindra is stable. Guarded prognosis. Doing everything to prevent extubation. 1. Will check bnP 2. Agree with steroids and remdesivir 3. Lasix 40mg IV x1 given today 4. Continue bipap for now, wean for sats >88% but wait a few hours until lasix is given. 5. PRone is possible 6. Guarded prognosis. If BNP elevated would need echo 7. Spoke with nursing about bradycardia, sinus on EKG, but if persistently low in 30's please repeat EKG CCT 31 minutes. Subjective Date of service: 07/16/20 Interval history: pH was 7 this am. Hypotensive last night. Gave 2 amps of NaBicarb with improvement and started on Bicarb drip. Bolused the fluids that IMS had ordered. Blood sugars have been elevated as well. Objective Vital Signs - 12hr 07/15/20 07/15/20 07/15/20 23:00 23:11 23:21 Temperature Pulse Rate 105 H 106 H 104 H Pulse Rate [ From Monitor] Respiratory 27 H 29 H 22 Rate Blood Pressure 110/59 110/59 107/57 O2 Sat by Pulse 99 98 98 Oximetry 07/15/20 07/15/20 07/15/20 23:30 23:41 23:51 Temperature Pulse Rate 106 H 106 H 105 H Pulse Rate [ From Monitor] Respiratory 26 H 24 30 H Rate Blood Pressure 128/58 128/58 134/55 O2 Sat by Pulse 99 99 99 Oximetry 07/16/20 07/16/20 07/16/20 00:00 00:03 00:11 Temperature 97.4 F L Pulse Rate 106 H 106 H 104 H Pulse Rate [ 108 H From Monitor] Respiratory 22 23 23 Rate Blood Pressure 115/55 115/55 115/55 O2 Sat by Pulse 99 99 98 Oximetry 07/16/20 07/16/20 07/16/20 00:21 00:30 00:41 Temperature Pulse Rate 104 H 105 H 106 H Pulse Rate [ From Monitor] Respiratory 27 H 23 26 H Rate Blood Pressure 115/61 116/54 116/54 O2 Sat by Pulse 98 98 98 Oximetry 07/16/20 07/16/20 07/16/20 00:51 01:00 01:11 Temperature Pulse Rate 105 H 104 H 106 H Pulse Rate [ From Monitor] Respiratory 27 H 30 H 23 Rate Blood Pressure 116/54 117/57 117/57 O2 Sat by Pulse 97 98 98 Oximetry 07/16/20 07/16/20 07/16/20 01:21 01:30 01:41 Temperature Pulse Rate 105 H 105 H 106 H Pulse Rate [ From Monitor] Respiratory 26 H 27 H 22 Rate Blood Pressure 112/53 110/53 110/53 O2 Sat by Pulse 98 98 98 Oximetry 07/16/20 07/16/20 07/16/20 01:51 02:00 02:11 Temperature Pulse Rate 106 H 106 H 106 H Pulse Rate [ From Monitor] Respiratory 25 H 24 24 Rate Blood Pressure 132/54 115/52 115/52 O2 Sat by Pulse 98 98 98 Oximetry 07/16/20 07/16/20 07/16/20 02:21 02:30 02:41 Temperature Pulse Rate 110 H 108 H 107 H Pulse Rate [ From Monitor] Respiratory 21 24 27 H Rate Blood Pressure 117/57 116/58 116/58 O2 Sat by Pulse 88 95 Oximetry 07/16/20 07/16/20 07/16/20 02:51 03:00 03:11 Temperature Pulse Rate 107 H 107 H 108 H Pulse Rate [ From Monitor] Respiratory 23 25 H 30 H Rate Blood Pressure 135/59 123/57 123/57 O2 Sat by Pulse 95 95 96 Oximetry 07/16/20 07/16/20 07/16/20 03:21 03:30 03:36 Temperature 97.8 F Pulse Rate 108 H 108 H Pulse Rate [ From Monitor] Respiratory 22 25 H Rate Blood Pressure 120/47 128/48 O2 Sat by Pulse 96 95 Oximetry 07/16/20 07/16/20 07/16/20 03:41 03:51 04:00 Temperature Pulse Rate 108 H 109 H 108 H Pulse Rate [ 110 H From Monitor] Respiratory 23 26 H 22 Rate Blood Pressure 128/48 106/57 113/53 O2 Sat by Pulse 95 96 95 Oximetry 07/16/20 07/16/20 07/16/20 04:11 04:20 04:30 Temperature Pulse Rate 109 H 109 H 109 H Pulse Rate [ From Monitor] Respiratory 26 H 20 26 H Rate Blood Pressure 113/53 108/51 115/50 O2 Sat by Pulse 94 96 96 Oximetry 07/16/20 07/16/20 07/16/20 04:40 04:51 05:00 Temperature Pulse Rate 110 H 110 H 109 H Pulse Rate [ From Monitor] Respiratory 23 26 H 21 Rate Blood Pressure 115/50 99/50 101/53 O2 Sat by Pulse 93 96 96 Oximetry 07/16/20 07/16/20 07/16/20 05:04 05:11 05:21 Temperature Pulse Rate 109 H 110 H 109 H Pulse Rate [ From Monitor] Respiratory 20 22 Rate Blood Pressure 101/53 101/53 125/48 O2 Sat by Pulse 96 96 95 Oximetry 07/16/20 07/16/20 07/16/20 05:30 05:41 05:50 Temperature Pulse Rate 110 H 110 H 110 H Pulse Rate [ From Monitor] Respiratory 20 29 H 20 Rate Blood Pressure 111/51 111/51 111/51 O2 Sat by Pulse 95 94 96 Oximetry 07/16/20 07/16/20 07/16/20 06:00 06:11 06:21 Temperature Pulse Rate 110 H 110 H 110 H Pulse Rate [ From Monitor] Respiratory 21 30 H 26 H Rate Blood Pressure 119/53 119/53 120/44 O2 Sat by Pulse 96 96 96 Oximetry 07/16/20 07/16/20 07/16/20 06:30 06:41 08:00 Temperature 98.3 F Pulse Rate 109 H 109 H Pulse Rate [ From Monitor] Respiratory 20 30 H Rate Blood Pressure 106/46 106/46 O2 Sat by Pulse 96 94 Oximetry 07/16/20 09:06 Temperature Pulse Rate 110 H Pulse Rate [ From Monitor] Respiratory Rate Blood Pressure 92/45 O2 Sat by Pulse 98 Oximetry Constitutional: no acute distress, alert, other (full face mask on for bipap therapy.) Eyes: non-icteric Neck: supple Ascultation: Bilateral: diminished breath sounds CBC and BMP: 07/14/20 04:31 07/16/20 09:22 ABG, PT/INR, D-dimer: ABG ABG pH 7.096 (7.320-7.450) L 07/16/20 04:00 POC ABG pCO2 68.5 mmHg (32.0-48.0) H 07/16/20 04:00 ABG pCO2 32.9 mm Hg 07/13/20 15:50 POC ABG pO2 79.7 mmHg (83-108) L 07/16/20 04:00 ABG pO2 73.7 mm Hg (80.0-90.0) L 07/13/20 15:50 POC ABG HCO3 20.6 07/16/20 04:00 ABG O2 Saturation 94.5 % (95.0-99.0) L 07/13/20 15:50 PT/INR, D-dimer PT 14.7 Sec. (12.2-14.9) 07/06/20 08:50 INR 1.15 (0.87-1.13) H 07/06/20 08:50 D-Dimer 1786.87 ng/mlDDU (0-234) H 07/10/20 05:25 Abnormal lab findings: Abnormal Labs 07/06/20 07/06/20 07/06/20 08:50 08:50 08:50 WBC MCV 78 L MCH 26 L Plt Count Lymph % (Auto) Lymph # (Auto) Seg Neutrophils % Seg Neuts % (Manual) 80.0 H Lymphocytes % (Manual) 10.0 L Nucleated RBC % 4.0 H Seg Neutrophils # Seg Neutrophils # Man Lymphocytes # (Manual) 0.9 L INR 1.15 H D-Dimer 1435.13 H ABG pH POC ABG pCO2 POC ABG pO2 ABG pO2 ABG O2 Saturation ABG Base Excess ABG Hemoglobin ABG Oxyhemoglobin ABG Potassium ABG Chloride ABG Glucose Oxyhemoglobin Carboxyhemoglobin Sodium 136 L Chloride Carbon Dioxide BUN 45 H Creatinine 1.6 H Glucose 385 H POC Glucose Hemoglobin A1c Lactic Acid Calcium Ferritin Alkaline Phosphatase 130 H Lactate Dehydrogenase Troponin T 0.034 H C-Reactive Protein Albumin 3.2 L Triglycerides Arterial Blood Glucose Coronavirus (PCR) 07/06/20 07/06/20 07/06/20 08:50 08:50 08:50 WBC MCV MCH Plt Count Lymph % (Auto) Lymph # (Auto) Seg Neutrophils % Seg Neuts % (Manual) Lymphocytes % (Manual) Nucleated RBC % Seg Neutrophils # Seg Neutrophils # Man Lymphocytes # (Manual) INR D-Dimer ABG pH POC ABG pCO2 POC ABG pO2 ABG pO2 ABG O2 Saturation ABG Base Excess ABG Hemoglobin ABG Oxyhemoglobin ABG Potassium ABG Chloride ABG Glucose Oxyhemoglobin Carboxyhemoglobin Sodium Chloride Carbon Dioxide BUN Creatinine Glucose 385 H POC Glucose Hemoglobin A1c Lactic Acid 2.30 H* Calcium Ferritin 1158.0 H Alkaline Phosphatase Lactate Dehydrogenase 471 H Troponin T C-Reactive Protein 10.40 H Albumin Triglycerides Arterial Blood Glucose Coronavirus (PCR) 07/06/20 07/06/20 07/06/20 09:26 15:44 15:44 WBC MCV MCH Plt Count Lymph % (Auto) Lymph # (Auto) Seg Neutrophils % Seg Neuts % (Manual) Lymphocytes % (Manual) Nucleated RBC % Seg Neutrophils # Seg Neutrophils # Man Lymphocytes # (Manual) INR D-Dimer ABG pH POC ABG pCO2 POC ABG pO2 ABG pO2 ABG O2 Saturation ABG Base Excess ABG Hemoglobin ABG Oxyhemoglobin ABG Potassium ABG Chloride ABG Glucose Oxyhemoglobin Carboxyhemoglobin Sodium Chloride Carbon Dioxide BUN Creatinine Glucose POC Glucose Hemoglobin A1c 11.8 H Lactic Acid 2.40 H* Calcium Ferritin Alkaline Phosphatase Lactate Dehydrogenase Troponin T C-Reactive Protein Albumin Triglycerides Arterial Blood Glucose Coronavirus (PCR) Positive A 07/06/20 07/06/20 07/06/20 15:44 17:40 20:35 WBC MCV MCH Plt Count Lymph % (Auto) Lymph # (Auto) Seg Neutrophils % Seg Neuts % (Manual) Lymphocytes % (Manual) Nucleated RBC % Seg Neutrophils # Seg Neutrophils # Man Lymphocytes # (Manual) INR D-Dimer ABG pH 7.455 H POC ABG pCO2 30.9 L POC ABG pO2 50.0 L ABG pO2 ABG O2 Saturation ABG Base Excess ABG Hemoglobin 11.1 L ABG Oxyhemoglobin 80.6 L ABG Potassium ABG Chloride ABG Glucose 357 H Oxyhemoglobin Carboxyhemoglobin 0.3 L Sodium Chloride Carbon Dioxide BUN Creatinine Glucose POC Glucose 324 H Hemoglobin A1c Lactic Acid Calcium Ferritin Alkaline Phosphatase Lactate Dehydrogenase 683 H Troponin T C-Reactive Protein Albumin Triglycerides Arterial Blood Glucose 357 H Coronavirus (PCR) 07/06/20 07/06/20 07/07/20 21:49 23:52 02:19 WBC MCV MCH Plt Count Lymph % (Auto) Lymph # (Auto) Seg Neutrophils % Seg Neuts % (Manual) Lymphocytes % (Manual) Nucleated RBC % Seg Neutrophils # Seg Neutrophils # Man Lymphocytes # (Manual) INR D-Dimer ABG pH 7.455 H POC ABG pCO2 31.9 L POC ABG pO2 50.7 L 62.0 L ABG pO2 ABG O2 Saturation ABG Base Excess ABG Hemoglobin 10.8 L 10.8 L ABG Oxyhemoglobin 80.2 L 88.3 L ABG Potassium ABG Chloride ABG Glucose 358 H 330 H Oxyhemoglobin Carboxyhemoglobin 0.2 L 0.2 L Sodium Chloride Carbon Dioxide BUN Creatinine Glucose POC Glucose 336 H Hemoglobin A1c Lactic Acid Calcium Ferritin Alkaline Phosphatase Lactate Dehydrogenase Troponin T C-Reactive Protein Albumin Triglycerides Arterial Blood Glucose 358 H 330 H Coronavirus (PCR) 07/07/20 07/07/20 07/07/20 02:42 02:42 07:54 WBC MCV MCH 26 L Plt Count Lymph % (Auto) Lymph # (Auto) Seg Neutrophils % Seg Neuts % (Manual) 85.0 H Lymphocytes % (Manual) 6.0 L Nucleated RBC % Seg Neutrophils # Seg Neutrophils # Man 7.9 H Lymphocytes # (Manual) 0.6 L INR D-Dimer ABG pH POC ABG pCO2 POC ABG pO2 ABG pO2 ABG O2 Saturation ABG Base Excess ABG Hemoglobin ABG Oxyhemoglobin ABG Potassium ABG Chloride ABG Glucose Oxyhemoglobin Carboxyhemoglobin Sodium Chloride Carbon Dioxide BUN 47 H Creatinine 1.3 H Glucose 336 H POC Glucose 289 H Hemoglobin A1c Lactic Acid Calcium Ferritin Alkaline Phosphatase Lactate Dehydrogenase Troponin T C-Reactive Protein Albumin Triglycerides Arterial Blood Glucose Coronavirus (PCR) 07/07/20 07/07/20 07/07/20 11:07 15:40 23:27 WBC MCV MCH Plt Count Lymph % (Auto) Lymph # (Auto) Seg Neutrophils % Seg Neuts % (Manual) Lymphocytes % (Manual) Nucleated RBC % Seg Neutrophils # Seg Neutrophils # Man Lymphocytes # (Manual) INR D-Dimer ABG pH POC ABG pCO2 POC ABG pO2 ABG pO2 ABG O2 Saturation ABG Base Excess ABG Hemoglobin ABG Oxyhemoglobin ABG Potassium ABG Chloride ABG Glucose Oxyhemoglobin Carboxyhemoglobin Sodium Chloride Carbon Dioxide BUN Creatinine Glucose POC Glucose 322 H 346 H 274 H Hemoglobin A1c Lactic Acid Calcium Ferritin Alkaline Phosphatase Lactate Dehydrogenase Troponin T C-Reactive Protein Albumin Triglycerides Arterial Blood Glucose Coronavirus (PCR) 07/08/20 07/08/20 07/08/20 02:39 05:07 05:07 WBC MCV MCH Plt Count Lymph % (Auto) Lymph # (Auto) Seg Neutrophils % Seg Neuts % (Manual) Lymphocytes % (Manual) Nucleated RBC % Seg Neutrophils # Seg Neutrophils # Man Lymphocytes # (Manual) INR D-Dimer 2542.57 H ABG pH 7.487 H POC ABG pCO2 POC ABG pO2 52.5 L ABG pO2 ABG O2 Saturation ABG Base Excess ABG Hemoglobin 11.8 L ABG Oxyhemoglobin ABG Potassium ABG Chloride ABG Glucose 336 H Oxyhemoglobin Carboxyhemoglobin Sodium Chloride Carbon Dioxide BUN 51 H Creatinine Glucose 326 H POC Glucose Hemoglobin A1c Lactic Acid Calcium Ferritin Alkaline Phosphatase Lactate Dehydrogenase Troponin T C-Reactive Protein 4.30 H Albumin 3.2 L Triglycerides Arterial Blood Glucose 336 H Coronavirus (PCR) 07/08/20 07/08/20 07/08/20 05:07 05:07 05:21 WBC MCV MCH 25 L Plt Count Lymph % (Auto) 7.9 L Lymph # (Auto) 0.6 L Seg Neutrophils % 85.6 H Seg Neuts % (Manual) Lymphocytes % (Manual) Nucleated RBC % Seg Neutrophils # Seg Neutrophils # Man Lymphocytes # (Manual) INR D-Dimer ABG pH POC ABG pCO2 POC ABG pO2 ABG pO2 ABG O2 Saturation ABG Base Excess ABG Hemoglobin ABG Oxyhemoglobin ABG Potassium ABG Chloride ABG Glucose Oxyhemoglobin Carboxyhemoglobin Sodium Chloride Carbon Dioxide BUN Creatinine Glucose POC Glucose 293 H Hemoglobin A1c Lactic Acid Calcium Ferritin 975.6 H Alkaline Phosphatase Lactate Dehydrogenase Troponin T C-Reactive Protein Albumin Triglycerides Arterial Blood Glucose Coronavirus (PCR) 07/08/20 07/08/20 07/08/20 08:59 11:39 17:57 WBC MCV MCH Plt Count Lymph % (Auto) Lymph # (Auto) Seg Neutrophils % Seg Neuts % (Manual) Lymphocytes % (Manual) Nucleated RBC % Seg Neutrophils # Seg Neutrophils # Man Lymphocytes # (Manual) INR D-Dimer ABG pH POC ABG pCO2 POC ABG pO2 ABG pO2 ABG O2 Saturation ABG Base Excess ABG Hemoglobin ABG Oxyhemoglobin ABG Potassium ABG Chloride ABG Glucose Oxyhemoglobin Carboxyhemoglobin Sodium Chloride Carbon Dioxide BUN Creatinine Glucose POC Glucose 270 H 285 H 221 H Hemoglobin A1c Lactic Acid Calcium Ferritin Alkaline Phosphatase Lactate Dehydrogenase Troponin T C-Reactive Protein Albumin Triglycerides Arterial Blood Glucose Coronavirus (PCR) 07/08/20 07/08/20 07/09/20 21:26 23:29 05:29 WBC MCV MCH Plt Count Lymph % (Auto) Lymph # (Auto) Seg Neutrophils % Seg Neuts % (Manual) Lymphocytes % (Manual) Nucleated RBC % Seg Neutrophils # Seg Neutrophils # Man Lymphocytes # (Manual) INR D-Dimer ABG pH POC ABG pCO2 POC ABG pO2 ABG pO2 ABG O2 Saturation ABG Base Excess ABG Hemoglobin ABG Oxyhemoglobin ABG Potassium ABG Chloride ABG Glucose Oxyhemoglobin Carboxyhemoglobin Sodium Chloride Carbon Dioxide BUN Creatinine Glucose POC Glucose 232 H 231 H 196 H Hemoglobin A1c Lactic Acid Calcium Ferritin Alkaline Phosphatase Lactate Dehydrogenase Troponin T C-Reactive Protein Albumin Triglycerides Arterial Blood Glucose Coronavirus (PCR) 07/09/20 07/09/20 07/09/20 06:51 06:51 12:10 WBC MCV MCH 26 L Plt Count Lymph % (Auto) 4.3 L Lymph # (Auto) 0.4 L Seg Neutrophils % Seg Neuts % (Manual) Lymphocytes % (Manual) 1.0 L Nucleated RBC % Seg Neutrophils # 9.1 H Seg Neutrophils # Man 9.8 H Lymphocytes # (Manual) 0.1 L INR D-Dimer ABG pH POC ABG pCO2 POC ABG pO2 ABG pO2 ABG O2 Saturation ABG Base Excess ABG Hemoglobin ABG Oxyhemoglobin ABG Potassium ABG Chloride ABG Glucose Oxyhemoglobin Carboxyhemoglobin Sodium 147 H Chloride 111.9 H Carbon Dioxide BUN 52 H Creatinine Glucose 207 H POC Glucose 176 H Hemoglobin A1c Lactic Acid Calcium Ferritin Alkaline Phosphatase Lactate Dehydrogenase Troponin T C-Reactive Protein Albumin 3.2 L Triglycerides Arterial Blood Glucose Coronavirus (PCR) 07/09/20 07/09/20 07/10/20 17:49 23:36 05:17 WBC MCV MCH Plt Count Lymph % (Auto) Lymph # (Auto) Seg Neutrophils % Seg Neuts % (Manual) Lymphocytes % (Manual) Nucleated RBC % Seg Neutrophils # Seg Neutrophils # Man Lymphocytes # (Manual) INR D-Dimer ABG pH POC ABG pCO2 POC ABG pO2 ABG pO2 ABG O2 Saturation ABG Base Excess ABG Hemoglobin ABG Oxyhemoglobin ABG Potassium ABG Chloride ABG Glucose Oxyhemoglobin Carboxyhemoglobin Sodium Chloride Carbon Dioxide BUN Creatinine Glucose POC Glucose 196 H 154 H 178 H Hemoglobin A1c Lactic Acid Calcium Ferritin Alkaline Phosphatase Lactate Dehydrogenase Troponin T C-Reactive Protein Albumin Triglycerides Arterial Blood Glucose Coronavirus (PCR) 07/10/20 07/10/20 07/10/20 05:25 05:25 05:25 WBC MCV MCH Plt Count Lymph % (Auto) Lymph # (Auto) Seg Neutrophils % Seg Neuts % (Manual) Lymphocytes % (Manual) Nucleated RBC % Seg Neutrophils # Seg Neutrophils # Man Lymphocytes # (Manual) INR D-Dimer 1786.87 H ABG pH POC ABG pCO2 POC ABG pO2 ABG pO2 ABG O2 Saturation ABG Base Excess ABG Hemoglobin ABG Oxyhemoglobin ABG Potassium ABG Chloride ABG Glucose Oxyhemoglobin Carboxyhemoglobin Sodium 152 H Chloride 112.8 H Carbon Dioxide BUN 60 H Creatinine Glucose 204 H POC Glucose Hemoglobin A1c Lactic Acid Calcium Ferritin 920.8 H Alkaline Phosphatase Lactate Dehydrogenase Troponin T C-Reactive Protein 2.80 H Albumin 3.3 L Triglycerides Arterial Blood Glucose Coronavirus (PCR) 07/10/20 07/10/20 07/10/20 05:25 12:39 17:56 WBC MCV MCH 27 L Plt Count Lymph % (Auto) Lymph # (Auto) Seg Neutrophils % Seg Neuts % (Manual) 92.0 H Lymphocytes % (Manual) 3.0 L Nucleated RBC % Seg Neutrophils # Seg Neutrophils # Man 9.5 H Lymphocytes # (Manual) 0.3 L INR D-Dimer ABG pH POC ABG pCO2 POC ABG pO2 ABG pO2 ABG O2 Saturation ABG Base Excess ABG Hemoglobin ABG Oxyhemoglobin ABG Potassium ABG Chloride ABG Glucose Oxyhemoglobin Carboxyhemoglobin Sodium Chloride Carbon Dioxide BUN Creatinine Glucose POC Glucose 174 H 177 H Hemoglobin A1c Lactic Acid Calcium Ferritin Alkaline Phosphatase Lactate Dehydrogenase Troponin T C-Reactive Protein Albumin Triglycerides Arterial Blood Glucose Coronavirus (PCR) 07/10/20 07/11/20 07/11/20 23:13 05:20 06:08 WBC MCV MCH Plt Count Lymph % (Auto) Lymph # (Auto) Seg Neutrophils % Seg Neuts % (Manual) Lymphocytes % (Manual) Nucleated RBC % Seg Neutrophils # Seg Neutrophils # Man Lymphocytes # (Manual) INR D-Dimer ABG pH POC ABG pCO2 POC ABG pO2 ABG pO2 ABG O2 Saturation ABG Base Excess ABG Hemoglobin ABG Oxyhemoglobin ABG Potassium ABG Chloride ABG Glucose Oxyhemoglobin Carboxyhemoglobin Sodium 159 H Chloride 120.9 H Carbon Dioxide BUN 57 H Creatinine Glucose 162 H POC Glucose 107 H 129 H Hemoglobin A1c Lactic Acid Calcium Ferritin Alkaline Phosphatase Lactate Dehydrogenase Troponin T C-Reactive Protein Albumin 3.0 L Triglycerides Arterial Blood Glucose Coronavirus (PCR) 07/11/20 07/11/20 07/11/20 12:08 17:21 23:20 WBC MCV MCH Plt Count Lymph % (Auto) Lymph # (Auto) Seg Neutrophils % Seg Neuts % (Manual) Lymphocytes % (Manual) Nucleated RBC % Seg Neutrophils # Seg Neutrophils # Man Lymphocytes # (Manual) INR D-Dimer ABG pH POC ABG pCO2 POC ABG pO2 ABG pO2 ABG O2 Saturation ABG Base Excess ABG Hemoglobin ABG Oxyhemoglobin ABG Potassium ABG Chloride ABG Glucose Oxyhemoglobin Carboxyhemoglobin Sodium Chloride Carbon Dioxide BUN Creatinine Glucose POC Glucose 238 H 240 H 176 H Hemoglobin A1c Lactic Acid Calcium Ferritin Alkaline Phosphatase Lactate Dehydrogenase Troponin T C-Reactive Protein Albumin Triglycerides Arterial Blood Glucose Coronavirus (PCR) 07/12/20 07/12/20 07/12/20 01:55 05:16 05:18 WBC 12.6 H MCV MCH 26 L Plt Count Lymph % (Auto) Lymph # (Auto) Seg Neutrophils % Seg Neuts % (Manual) 93.0 H Lymphocytes % (Manual) 4.0 L Nucleated RBC % Seg Neutrophils # Seg Neutrophils # Man 11.7 H Lymphocytes # (Manual) 0.5 L INR D-Dimer ABG pH POC ABG pCO2 POC ABG pO2 ABG pO2 ABG O2 Saturation ABG Base Excess ABG Hemoglobin ABG Oxyhemoglobin ABG Potassium ABG Chloride ABG Glucose Oxyhemoglobin Carboxyhemoglobin Sodium 151 H D Chloride 115.5 H Carbon Dioxide BUN 52 H Creatinine Glucose 250 H POC Glucose 202 H Hemoglobin A1c Lactic Acid Calcium Ferritin Alkaline Phosphatase Lactate Dehydrogenase Troponin T C-Reactive Protein Albumin Triglycerides Arterial Blood Glucose Coronavirus (PCR) 07/12/20 07/12/20 07/12/20 05:18 11:50 17:25 WBC MCV MCH Plt Count Lymph % (Auto) Lymph # (Auto) Seg Neutrophils % Seg Neuts % (Manual) Lymphocytes % (Manual) Nucleated RBC % Seg Neutrophils # Seg Neutrophils # Man Lymphocytes # (Manual) INR D-Dimer ABG pH POC ABG pCO2 POC ABG pO2 ABG pO2 ABG O2 Saturation ABG Base Excess ABG Hemoglobin ABG Oxyhemoglobin ABG Potassium ABG Chloride ABG Glucose Oxyhemoglobin Carboxyhemoglobin Sodium 152 H Chloride 113.7 H Carbon Dioxide BUN 50 H Creatinine Glucose 232 H POC Glucose 218 H 130 H Hemoglobin A1c Lactic Acid Calcium Ferritin Alkaline Phosphatase Lactate Dehydrogenase Troponin T C-Reactive Protein Albumin Triglycerides Arterial Blood Glucose Coronavirus (PCR) 07/12/20 07/13/20 07/13/20 23:17 04:39 04:39 WBC MCV MCH 26 L Plt Count Lymph % (Auto) Lymph # (Auto) Seg Neutrophils % Seg Neuts % (Manual) Lymphocytes % (Manual) Nucleated RBC % Seg Neutrophils # Seg Neutrophils # Man Lymphocytes # (Manual) INR D-Dimer ABG pH POC ABG pCO2 POC ABG pO2 ABG pO2 ABG O2 Saturation ABG Base Excess ABG Hemoglobin ABG Oxyhemoglobin ABG Potassium ABG Chloride ABG Glucose Oxyhemoglobin Carboxyhemoglobin Sodium Chloride 109.4 H Carbon Dioxide BUN 44 H Creatinine Glucose 281 H POC Glucose 161 H Hemoglobin A1c Lactic Acid Calcium Ferritin Alkaline Phosphatase Lactate Dehydrogenase Troponin T C-Reactive Protein Albumin Triglycerides Arterial Blood Glucose Coronavirus (PCR) 07/13/20 07/13/20 07/13/20 05:16 11:56 15:50 WBC MCV MCH Plt Count Lymph % (Auto) Lymph # (Auto) Seg Neutrophils % Seg Neuts % (Manual) Lymphocytes % (Manual) Nucleated RBC % Seg Neutrophils # Seg Neutrophils # Man Lymphocytes # (Manual) INR D-Dimer ABG pH POC ABG pCO2 POC ABG pO2 ABG pO2 73.7 L ABG O2 Saturation 94.5 L ABG Base Excess -2.9 L ABG Hemoglobin 9.6 L ABG Oxyhemoglobin ABG Potassium ABG Chloride ABG Glucose Oxyhemoglobin 92.8 L Carboxyhemoglobin Sodium Chloride Carbon Dioxide BUN Creatinine Glucose POC Glucose 210 H 229 H Hemoglobin A1c Lactic Acid Calcium Ferritin Alkaline Phosphatase Lactate Dehydrogenase Troponin T C-Reactive Protein Albumin Triglycerides Arterial Blood Glucose Coronavirus (PCR) 07/13/20 07/13/20 07/14/20 17:35 23:29 03:57 WBC MCV MCH Plt Count Lymph % (Auto) Lymph # (Auto) Seg Neutrophils % Seg Neuts % (Manual) Lymphocytes % (Manual) Nucleated RBC % Seg Neutrophils # Seg Neutrophils # Man Lymphocytes # (Manual) INR D-Dimer ABG pH POC ABG pCO2 POC ABG pO2 63.2 L ABG pO2 ABG O2 Saturation ABG Base Excess ABG Hemoglobin 11.8 L ABG Oxyhemoglobin ABG Potassium ABG Chloride ABG Glucose 148 H Oxyhemoglobin Carboxyhemoglobin Sodium Chloride Carbon Dioxide BUN Creatinine Glucose POC Glucose 277 H 173 H Hemoglobin A1c Lactic Acid Calcium Ferritin Alkaline Phosphatase Lactate Dehydrogenase Troponin T C-Reactive Protein Albumin Triglycerides Arterial Blood Glucose 148 H Coronavirus (PCR) 07/14/20 07/14/20 07/14/20 04:31 04:31 05:11 WBC MCV MCH 26 L Plt Count 134 L Lymph % (Auto) Lymph # (Auto) Seg Neutrophils % Seg Neuts % (Manual) Lymphocytes % (Manual) Nucleated RBC % Seg Neutrophils # Seg Neutrophils # Man Lymphocytes # (Manual) INR D-Dimer ABG pH POC ABG pCO2 POC ABG pO2 ABG pO2 ABG O2 Saturation ABG Base Excess ABG Hemoglobin ABG Oxyhemoglobin ABG Potassium ABG Chloride ABG Glucose Oxyhemoglobin Carboxyhemoglobin Sodium Chloride Carbon Dioxide 21 L BUN 66 H Creatinine Glucose 139 H POC Glucose 126 H Hemoglobin A1c Lactic Acid Calcium Ferritin Alkaline Phosphatase Lactate Dehydrogenase Troponin T C-Reactive Protein Albumin Triglycerides Arterial Blood Glucose Coronavirus (PCR) 07/14/20 07/14/20 07/14/20 11:54 17:44 21:25 WBC MCV MCH Plt Count Lymph % (Auto) Lymph # (Auto) Seg Neutrophils % Seg Neuts % (Manual) Lymphocytes % (Manual) Nucleated RBC % Seg Neutrophils # Seg Neutrophils # Man Lymphocytes # (Manual) INR D-Dimer ABG pH POC ABG pCO2 POC ABG pO2 64.8 L ABG pO2 ABG O2 Saturation ABG Base Excess ABG Hemoglobin 11.9 L ABG Oxyhemoglobin 86.8 L ABG Potassium ABG Chloride ABG Glucose 296 H Oxyhemoglobin Carboxyhemoglobin Sodium Chloride Carbon Dioxide BUN Creatinine Glucose POC Glucose 181 H 274 H Hemoglobin A1c Lactic Acid Calcium Ferritin Alkaline Phosphatase Lactate Dehydrogenase Troponin T C-Reactive Protein Albumin Triglycerides Arterial Blood Glucose 296 H Coronavirus (PCR) 07/14/20 07/15/20 07/15/20 23:20 03:09 05:32 WBC MCV MCH Plt Count Lymph % (Auto) Lymph # (Auto) Seg Neutrophils % Seg Neuts % (Manual) Lymphocytes % (Manual) Nucleated RBC % Seg Neutrophils # Seg Neutrophils # Man Lymphocytes # (Manual) INR D-Dimer ABG pH 7.280 L POC ABG pCO2 POC ABG pO2 57.7 L ABG pO2 ABG O2 Saturation ABG Base Excess ABG Hemoglobin 11.8 L ABG Oxyhemoglobin 79.3 L ABG Potassium 4.6 H ABG Chloride ABG Glucose 340 H Oxyhemoglobin Carboxyhemoglobin Sodium Chloride Carbon Dioxide BUN Creatinine Glucose POC Glucose 271 H 339 H Hemoglobin A1c Lactic Acid Calcium Ferritin Alkaline Phosphatase Lactate Dehydrogenase Troponin T C-Reactive Protein Albumin Triglycerides Arterial Blood Glucose 340 H Coronavirus (PCR) 07/15/20 07/15/20 07/15/20 11:39 17:41 20:12 WBC MCV MCH Plt Count Lymph % (Auto) Lymph # (Auto) Seg Neutrophils % Seg Neuts % (Manual) Lymphocytes % (Manual) Nucleated RBC % Seg Neutrophils # Seg Neutrophils # Man Lymphocytes # (Manual) INR D-Dimer ABG pH 7.091 L POC ABG pCO2 62.2 H POC ABG pO2 ABG pO2 ABG O2 Saturation ABG Base Excess ABG Hemoglobin ABG Oxyhemoglobin 89.8 L ABG Potassium ABG Chloride ABG Glucose 493 H Oxyhemoglobin Carboxyhemoglobin Sodium Chloride Carbon Dioxide BUN Creatinine Glucose POC Glucose 388 H 414 H Hemoglobin A1c Lactic Acid Calcium Ferritin Alkaline Phosphatase Lactate Dehydrogenase Troponin T C-Reactive Protein Albumin Triglycerides Arterial Blood Glucose 493 H Coronavirus (PCR) 07/15/20 07/15/20 07/15/20 22:14 22:14 23:48 WBC MCV MCH Plt Count Lymph % (Auto) Lymph # (Auto) Seg Neutrophils % Seg Neuts % (Manual) Lymphocytes % (Manual) Nucleated RBC % Seg Neutrophils # Seg Neutrophils # Man Lymphocytes # (Manual) INR D-Dimer ABG pH 7.132 L POC ABG pCO2 55.9 H POC ABG pO2 79.1 L ABG pO2 ABG O2 Saturation ABG Base Excess ABG Hemoglobin ABG Oxyhemoglobin 89.8 L ABG Potassium 4.6 H ABG Chloride ABG Glucose 528 H Oxyhemoglobin Carboxyhemoglobin Sodium Chloride Carbon Dioxide 18 L BUN 107 H Creatinine 1.8 H Glucose 523 H* POC Glucose 479 H Hemoglobin A1c Lactic Acid Calcium 8.0 L Ferritin Alkaline Phosphatase Lactate Dehydrogenase Troponin T C-Reactive Protein Albumin Triglycerides Arterial Blood Glucose 528 H Coronavirus (PCR) 07/16/20 07/16/20 07/16/20 04:00 05:09 Unknown WBC MCV MCH Plt Count Lymph % (Auto) Lymph # (Auto) Seg Neutrophils % Seg Neuts % (Manual) Lymphocytes % (Manual) Nucleated RBC % Seg Neutrophils # Seg Neutrophils # Man Lymphocytes # (Manual) INR D-Dimer ABG pH 7.096 L POC ABG pCO2 68.5 H POC ABG pO2 79.7 L ABG pO2 ABG O2 Saturation ABG Base Excess ABG Hemoglobin ABG Oxyhemoglobin ABG Potassium 5.0 H ABG Chloride 108.0 H ABG Glucose 385 H Oxyhemoglobin Carboxyhemoglobin Sodium Chloride Carbon Dioxide BUN Creatinine Glucose POC Glucose 347 H Hemoglobin A1c Lactic Acid Calcium Ferritin Alkaline Phosphatase Lactate Dehydrogenase Troponin T C-Reactive Protein Albumin Triglycerides 215 H Arterial Blood Glucose 385 H Coronavirus (PCR)
[2020-07-16 11:30] LABS: Hematocrit 35.8 % (30.3-42.9); Hemoglobin 11.1 gm/dl (10.1-14.3); Mean Corpuscular HGB Conc 31 % (30-34); Mean Corpuscular Volume 83 fl (79-97); Platelet Count 121 K/mm3 (140-440); Red Cell Distribution Width 15.2 % (13.2-15.2)
[2020-07-16] MEDS ORDERED: INSULIN NPH/REGULAR 70/30 INJ SUB-Q SCH (12:00)
[2020-07-16 12:23] LABS: Bilirubin,Urine NEG (Negative); Blood,Urine MOD (Negative); Color,Urine Amber (Yellow); Mucus,Urine FEW /HPF
[2020-07-16 13:56] LABS: Creatinine,Urine 149.3 mg/dL (0.1-20.0)
[2020-07-16] MEDS ORDERED: SODIUM CHLORIDE 0.9% 1000 ML 1,000 ML IV ONE (14:25)
[2020-07-16] MEDS: HYDROCORTISONE SOD SUCC 100 MG/2 ML VIAL IV SCH ×2 (14:30→21:41)
--- NOTE | 2020-07-16 14:52 | Progress Note ---
<JONASPAULETTE H. - Last Filed: 07/16/20 14:47> Assessment and Plan Assessment and plan: Sepsis -Presented with hypoxia, tachypnea and acute hypoxic respiratory failure, acute kidney injury, pneumonia on CXR and COVID-19 infection -07/06 blood cultures x2 no growth to date -s/p Antibiotic therapy -Infectious disease consulted, appreciate recommendations -Stress dose steroids stopped 07/16 COVID-19 infection -07/06 CXR shows diffuse hazy bilateral lung opacities concerning for viral infection, atypical pneumonia or pulmonary edema with no pleural effusions or pneumothorax -07/06 COVID-19 PCR positive -07/05 COVID-19 PCR at outside facility positive -Infectious disease and pulmonology consulted, appreciate recommendations -Contact/droplet isolation -Pulmonary hygiene -Supplemental oxygen as needed -S/p antibiotic therapy -07/07-07/12 s/p remdesivir therapy -S/p steroid therapy for COVID-19 infection -OOB 3 times daily -Prone to sleep as needed -Anticoagulation per protocol -Vitamin C, vitamin D and zinc -SPO2 monitoring Bilateral pneumonia -07/06 CXR shows diffuse hazy bilateral lung opacities concerning for viral infection, atypical pneumonia or pulmonary edema with no pleural effusions or pneumothorax -Secondary to COVID-19 infection -s/p Antibiotic therapy -Infectious disease consulted, appreciate recommendation -07/06 blood cultures x2 no growth to date Acute hypoxic respiratory failure -Room air SPO2 75% and placed on high flow nasal cannula -Pulmonary consulted, patient recommendations -Steroid therapy -Supplemental oxygen as needed -Pulmonary hygiene -SPO2 monitoring -07/13 patient was electively intubated Bilateral pneumothorax -Evidenced on CXR -General surgery consulted for placement of bilateral chest tubes Acute kidney injury -12/2016 creatinine/BUN 0.9/15 -Presented with a creatinine/BUN 1.6/45 -Trend BMP -Consider nephrology consult if not improving -07/13 BUN/creatinine 44/0.9 -Secondary to vasomotor nephropathy -07/16 renal ultrasound pending -07/16 urine studies pending Leukocytosis -07/16 WBC 21.2 -Patient is on stress dose steroids -Trend CBC Thrombocytopenia -07/14 platelets 134 -Trend CBC Elevated troponin/SB -Presented with a troponin of 0.034 -07/06 troponin less than 0.10 -Cardiology consulted, appreciate recommendations -EKG as needed -No complaints of chest pain -Cardiology believes elevated troponin is in setting of acute kidney injury Elevated D-dimer -Admit D-dimer 1435 -07/06 nuclear medicine perfusion study shows low probability of pulmonary embolism -07/06 bilateral lower extremity Doppler ultrasound negative for DVT/SVT Hypertension -Titrate Antihypertensives as needed -Hydralazine as needed for SBP greater than 160 -Blood pressure monitoring per protocol Diabetes mellitus -07/06 hemoglobin A1c 11.8 -SSI -CC cardiac diet -Accu-Cheks AC at bedtime -Hypoglycemia protocol -07/06 70/30 initiated, titrate as needed DVT prophylaxis -Heparin subcu -GI prophylaxis -SCDs to bilateral lower extremities while in bed Hyperchloremia, resolved -07/09 chloride 111 which trended up to 120 -07/14 106.8 -Trend BMP History Interval history: This is a 69-year-old Laotian female with limited French with hypertension, diabetes mellitus, hyperlipidemia who presented to the hospital on 07/06 via EMS with worsening subjective fevers, headache, body ache, dry cough, dyspnea on exertion, fatigue, headache and nausea since the last week end of May. Patient had a positive COVID-19 PCR on 07/05 as outside facility. Upon arrival to the emergency department patient was hypoxic on room air at 75% and tachypneic. Work-up in the emergency department with a CXR which showed bilateral pneumonia, lactic acidosis at 2.3, acute kidney injury at 1.6/45, elevated D-dimer, elevated troponin and slight hyponatremia 136. Patient received Rocephin, azithromycin and Decadron in the emergency department. Patient was admitted to the hospitalist service as a COVID-19 PUI, acute kidney injury, sepsis, lactic acidosis, and elevated D-dimer with consults to pulmonology and infectious disease. 07/06: COVID-19 PCR positive, azithromycin and Rocephin, Decadron and remdesivir therapy 07/07: Patient is on 100% FiO2 BiPAP therapy with SPO2 in the low 90s and high 80s, hypoxia and ABG, sinus bradycardia noted overnight. Repeat CXR shows persis tent diffuse pulmonary process and pulmonary edema therefore she received 40 mg of Lasix x1 and a proBNP is pending per [facility] 07/08: Patient remains on antibiotic therapy, kidney function tests have not worsened, sinus bradycardia still persist and steroid dosing was increased today by [facility]. Patient's daughter was updated today 07/09: Overnight it was noted that the patient developed bilateral small p neumothorax on AM CXR. She still remains on 100% FiO2 via Bipap and her ABG shows hypoxia. Her steroid therapy was changed per CCM and she received lasix x1 today. 07/10: Still remains hypoxic on BiPAP. Labs reviewed-sodium 152 today. Hold off on IV fluids for today due to ongoing respiratory difficulty. Trend sodium for now and if elevated tomorrow we will start on hypotonic solution. Possible intubation in the next 24 hours if no improvement in respiratory status. Critical care on board 07/11. Her oxygen sats remains stable. Plan to switch to HFNC to see if she tolerated. Started on D5W due to worsening hyponatremia and lethargy. BMP q6 hr ordered 07/12: Patient remains on BiPAP as she was unable to maintain her oxygenation on HFNC, remains hypernatremic and hyperchloremic although improving. 07/13: CXR from this a.m. showed increase in bilateral pneumothorax size, patient was electively intubated and placed on mechanical ventilation. Surgery was consulted for placement of bilateral chest tubes. Patient's hypernatremia, leukocytosis, hyperchloremia has improved. NG tube placed and nutrition consulted. She remains hyperglycemic and her insulin dose was adjusted. 07/14: Patient's leukocytosis, hyponatremia and hypochloremia has resolved today she has metabolic acidosis and hypoxia on ABG therefore her PEEP has been increased. Patient still remains sedated on propofol and fentanyl. Bilateral chest tubes are to wall suction with minimal to no drainage. No acute events reported overnight. 07/15: Patient received Ativan overnight for agitation and her propofol was incre ased therefore she was slightly hypotensive, at the time my examination patient remains on mechanical ventilation and sedated with propofol/fentanyl. Her PEEP has been increased to 16. IV nurse was consulted for PICC placement as [facility] would like to have a trial run of paralytics with increased PEEP. Patient was hypoxic on ABG this a.m. and her BMP is still pending. [place]dwell placed 07/15: Patient noted to be severe respiratory acidosis and received 2 amps of bicarb and was placed on a bicarbonate drip. [facility] stopped paralytic and bolused with normal saline today. Repeat labs in AM. Patient Renal US and urine lytes pending. Patient was hypotensive overnight. Remains on MV with Bilateral CT to wall suction in place. Hospitalist Physical - Constitutional Vitals: Temp Pulse Resp BP Pulse Ox 98.3 F 102 H 14 92/59 97 07/16/20 08:00 07/16/20 13:45 07/16/20 13:45 07/16/20 13:45 07/16/20 13:45 General appearance: Present: obese - EENT ENT: poor dentition - Neck Neck: Present: supple - Respiratory Respiratory effort: normal Respiratory: bilateral: diminished - Cardiovascular Rhythm: regular Heart Sounds: Present: S1 & S2. Absent: systolic murmur, diastolic murmur - Extremities Extremities: no ischemia, pulses intact, pulses symmetrical, No edema, normal temperature, normal color, Full ROM Peripheral Pulses: within normal limits - Abdominal General gastrointestinal: soft, non-tender, non-distended, normal bowel sounds - Integumentary Integumentary: Present: warm, dry - Psychiatric Psychiatric: other (sedated) - Neurologic Neurologic: other (sedated) - Allied Health Allied health notes reviewed: nursing HEART Score - HEART Score Troponin: Troponin T < 0.010 ng/mL (0.00-0.029) 07/07/20 00:22 Results - Labs CBC & Chem 7: 07/16/20 11:14 07/16/20 09:22 Labs: Laboratory Last Values WBC 21.2 K/mm3 (4.5-11.0) H 07/16/20 11:14 RBC 4.30 M/mm3 (3.65-5.03) 07/16/20 11:14 Hgb 11.1 gm/dl (10.1-14.3) 07/16/20 11:14 Hct 35.8 % (30.3-42.9) 07/16/20 11:14 MCV 83 fl (79-97) 07/16/20 11:14 MCH 26 pg (28-32) L 07/16/20 11:14 MCHC 31 % (30-34) 07/16/20 11:14 RDW 15.2 % (13.2-15.2) 07/16/20 11:14 Plt Count 121 K/mm3 (140-440) L 07/16/20 11:14 Lymph % (Auto) 4.3 % (13.4-35.0) L 07/09/20 06:51 Camp % (Auto) 3.6 % (0.0-7.3) 07/09/20 06:51 Eos % (Auto) 0.6 % (0.0-4.3) 07/09/20 06:51 Baso % (Auto) 0.3 % (0.0-1.8) 07/09/20 06:51 Lymph # (Auto) 0.4 K/mm3 (1.2-5.4) L 07/09/20 06:51 Camp # (Auto) 0.4 K/mm3 (0.0-0.8) 07/09/20 06:51 Eos # (Auto) 0.1 K/mm3 (0.0-0.4) 07/09/20 06:51 Baso # (Auto) 0.0 K/mm3 (0.0-0.1) 07/09/20 06:51 Add Manual Diff Complete 07/12/20 05:18 Total Counted 100 07/12/20 05:18 Seg Neutrophils % Hvac Maintenance Technician 07/12/20 05:18 Seg Neuts % (Manual) 93.0 % (40.0-70.0) H 07/12/20 05:18 Band Neutrophils % 4.0 % 07/07/20 02:42 Lymphocytes % (Manual) 4.0 % (13.4-35.0) L 07/12/20 05:18 Monocytes % (Manual) 3.0 % (0.0-7.3) 07/12/20 05:18 Metamyelocytes % 1.0 % 07/10/20 05:25 Nucleated RBC % Not Reportable 07/12/20 05:18 Seg Neutrophils # 9.1 K/mm3 (1.8-7.7) H 07/09/20 06:51 Seg Neutrophils # Man 11.7 K/mm3 (1.8-7.7) H 07/12/20 05:18 Band Neutrophils # 0.0 K/mm3 07/12/20 05:18 Lymphocytes # (Manual) 0.5 K/mm3 (1.2-5.4) L 07/12/20 05:18 Abs React Lymphs (Man) 0.0 K/mm3 07/12/20 05:18 Monocytes # (Manual) 0.4 K/mm3 (0.0-0.8) 07/12/20 05:18 Eosinophils # (Manual) 0.0 K/mm3 (0.0-0.4) 07/12/20 05:18 Basophils # (Manual) 0.0 K/mm3 (0.0-0.1) 07/12/20 05:18 Metamyelocytes # 0.0 K/mm3 07/12/20 05:18 Myelocytes # 0.0 K/mm3 07/12/20 05:18 Promyelocytes # 0.0 K/mm3 07/12/20 05:18 Blast Cells # 0.0 K/mm3 07/12/20 05:18 WBC Morphology Not Reportable 07/12/20 05:18 Hypersegmented Neuts Not Reportable 07/12/20 05:18 Hyposegmented Neuts Not Reportable 07/12/20 05:18 Hypogranular Neuts Not Reportable 07/12/20 05:18 Smudge Cells Not Reportable 07/12/20 05:18 Toxic Granulation Not Reportable 07/12/20 05:18 Toxic Vacuolation Not Reportable 07/12/20 05:18 Dohle Bodies Not Reportable 07/12/20 05:18 Pelger-Huet Anomaly Not Reportable 07/12/20 05:18 Rudy Rods Not Reportable 07/12/20 05:18 Platelet Estimate Consistent w auto 07/12/20 05:18 Clumped Platelets Not Reportable 07/12/20 05:18 Plt Clumps, EDTA Not Reportable 07/12/20 05:18 Large Platelets Not Reportable 07/12/20 05:18 Giant Platelets Not Reportable 07/12/20 05:18 Platelet Satelliting Not Reportable 07/12/20 05:18 Plt Morphology Comment Not Reportable 07/12/20 05:18 RBC Morphology Not Reportable 07/12/20 05:18 Dimorphic RBCs Not Reportable 07/12/20 05:18 Polychromasia Not Reportable 07/12/20 05:18 Hypochromasia Not Reportable 07/12/20 05:18 Poikilocytosis Not Reportable 07/12/20 05:18 Anisocytosis 1+ 07/12/20 05:18 Microcytosis Not Reportable 07/12/20 05:18 Macrocytosis Not Reportable 07/12/20 05:18 Spherocytes Not Reportable 07/12/20 05:18 Pappenheimer Bodies Not Reportable 07/12/20 05:18 Sickle Cells Not Reportable 07/12/20 05:18 Target Cells Not Reportable 07/12/20 05:18 Tear Drop Cells Not Reportable 07/12/20 05:18 Ovalocytes Not Reportable 07/12/20 05:18 Helmet Cells Not Reportable 07/12/20 05:18 [place] Bodies Not Reportable 07/12/20 05:18 [place] Rings Not Reportable 07/12/20 05:18 [place] Cells Not Reportable 07/12/20 05:18 Bite Cells Not Reportable 07/12/20 05:18 Crenated Cell Not Reportable 07/12/20 05:18 Elliptocytes Not Reportable 07/12/20 05:18 Acanthocytes (Spur) Not Reportable 07/12/20 05:18 Rouleaux Not Reportable 07/12/20 05:18 Hemoglobin C Crystals Not Reportable 07/12/20 05:18 Schistocytes Not Reportable 07/12/20 05:18 Malaria parasites Not Reportable 07/12/20 05:18 Shreyas Bodies Not Reportable 07/12/20 05:18 Hem Pathologist Commnt No 07/12/20 05:18 PT 14.7 Sec. (12.2-14.9) 07/06/20 08:50 INR 1.15 (0.87-1.13) H 07/06/20 08:50 APTT 25.9 Sec. (24.2-36.6) 07/06/20 08:50 D-Dimer 1786.87 ng/mlDDU (0-234) H 07/10/20 05:25 ABG pH 7.096 (7.320-7.450) L 07/16/20 04:00 POC ABG pCO2 68.5 mmHg (32.0-48.0) H 07/16/20 04:00 ABG pCO2 32.9 mm Hg 07/13/20 15:50 POC ABG pO2 79.7 mmHg (83-108) L 07/16/20 04:00 ABG pO2 73.7 mm Hg (80.0-90.0) L 07/13/20 15:50 POC ABG HCO3 20.6 07/16/20 04:00 ABG HCO3 21.0 mmol/L (20.0-26.0) 07/13/20 15:50 ABG O2 Saturation 94.5 % (95.0-99.0) L 07/13/20 15:50 ABG O2 Content 12.6 (0.0-44) 07/13/20 15:50 POC ABG Base Excess -10.1 07/16/20 04:00 ABG Base Excess -2.9 mmol/L (-2.0-3.0) L 07/13/20 15:50 ABG Hemoglobin 13.7 (12.0-17.5) 07/16/20 04:00 ABG Oxyhemoglobin 89.8 (94-98) L 07/15/20 22:14 ABG Carboxyhemoglobin 1.3 % (0.0-5.0) 07/13/20 15:50 ABG Methemoglobin 0 (0.0-1.5) 07/15/20 22:14 ABG Sodium 139.3 mmol/L (136.0-145.0) 07/16/20 04:00 ABG Potassium 5.0 mmol/L (3.40-4.50) H 07/16/20 04:00 ABG Chloride 108.0 mmol/L (98-107) H 07/16/20 04:00 ABG Glucose 385 mg/dL (65-95) H 07/16/20 04:00 Oxyhemoglobin 92.8 % (95.0-99.0) L 07/13/20 15:50 Carboxyhemoglobin 0.5 (0.5-1.5) 07/15/20 22:14 FiO2 80 07/16/20 04:00 Sodium TNR 07/16/20 09:22 Potassium TNR 07/16/20 09:22 Chloride TNR 07/16/20 09:22 Carbon Dioxide TNR 07/16/20 09:22 Anion Gap TNR 07/16/20 09:22 BUN TNR 07/16/20 09:22 Creatinine TNR 07/16/20 09:22 Estimated GFR TNR 07/16/20 09:22 BUN/Creatinine Ratio TNR 07/16/20 09:22 Glucose TNR 07/16/20 09:22 POC Glucose 206 mg/dL (70-105) H 07/16/20 12:01 Hemoglobin A1c 11.8 % (4-6) H 07/06/20 15:44 Lactic Acid 1.60 mmol/L (0.7-2.0) 07/07/20 08:55 Calcium TNR 07/16/20 09:22 Ferritin 920.8 ng/mL (10.0-200.0) H 07/10/20 05:25 Total Bilirubin 1.00 mg/dL (0.1-1.2) 07/11/20 06:08 AST 38 units/L (5-40) 07/11/20 06:08 ALT 24 units/L (7-56) 07/11/20 06:08 Alkaline Phosphatase 107 units/L (35-129) 07/11/20 06:08 Lactate Dehydrogenase 683 units/L (91-180) H 07/06/20 15:44 Total Creatine Kinase 47 units/L (30-135) 07/07/20 00:22 CK-MB (CK-2) 1.6 ng/mL (0.0-4.0) 07/07/20 00:22 CK-MB (CK-2) Rel Index 3.4 (0-4) 07/07/20 00:22 Troponin T < 0.010 ng/mL (0.00-0.029) 07/07/20 00:22 C-Reactive Protein 2.80 mg/dL (0.00-1.30) H 07/10/20 05:25 NT-Pro-B Natriuret Pep 459.9 pg/mL (0-900) 07/07/20 14:31 Total Protein 6.8 g/dL (6.3-8.2) 07/11/20 06:08 Albumin 3.0 g/dL (3.9-5) L 07/11/20 06:08 Albumin/Globulin Ratio 0.8 % 07/11/20 06:08 Triglycerides 215 mg/dL (2-149) H 07/16/20 Unknown Procalcitonin 7.48 ng/mL (<0.15) 07/06/20 15:44 TSH 0.420 mlU/mL (0.270-4.200) 07/08/20 05:07 Arterial Blood Glucose 385 mg/dL (65-95) H 07/16/20 04:00 Arterial Blood Ionized Calcium 5.0 mg/dL (4.6-5.3) 07/16/20 04:00 Urine Color [place] (Yellow) 07/16/20 11:30 Urine Turbidity Cloudy (Clear) 07/16/20 11:30 Urine pH 5.0 (5.0-7.0) 07/16/20 11:30 Ur Specific [place] 1.018 (1.003-1.030) 07/16/20 11:30 Urine Protein 30 mg/dl mg/dL (Negative) 07/16/20 11:30 Urine Glucose (UA) Neg mg/dL (Negative) 07/16/20 11:30 Urine Ketones Neg mg/dL (Negative) 07/16/20 11:30 Urine Blood Mod (Negative) 07/16/20 11:30 Urine Nitrite Neg (Negative) 07/16/20 11:30 Urine Bilirubin Neg (Negative) 07/16/20 11:30 Urine Urobilinogen 4.0 mg/dL (<2.0) 07/16/20 11:30 Ur Leukocyte Esterase Tr (Negative) 07/16/20 11:30 Urine WBC (Auto) 11.0 /HPF (0.0-6.0) H 07/16/20 11:30 Urine RBC (Auto) 22.0 /HPF (0.0-6.0) 07/16/20 11:30 U Epithel Cells (Auto) 2.0 /HPF (0-13.0) 07/16/20 11:30 Urine Bacteria (Auto) 1+ /HPF (Negative) 07/07/20 03:35 Urine Mucus Few /HPF 07/16/20 11:30 Urine Osmolality 731 Mosm/kg 07/07/20 03:35 Urine Creatinine 149.3 mg/dL (0.1-20.0) H 07/16/20 11:30 Urine Sodium 24 mmol/L 07/16/20 11:30 Urine Urea Nitrogen 457 07/16/20 11:30 Coronavirus (PCR) Positive (Negative) A 07/06/20 09:26 Microbiology: Microbiology 07/13/20 10:46 Tracheal Aspirate Sputum Culture - Preliminary - Diagnostic Impressions Diagnostic Impressions: Echocardiogram 07/08/20 09:36 Transthoracic Echocardiogram Indication: Chest pain BP: 129/66 HR: 67 Conclusions *The study is technically limited due to poor acoustic windows. *Global left ventricular systolic function is normal. *The estimated ejection fraction is greater than 55-60%. *Mild concentric left ventricular hypertrophy is observed. *There is trace of mitral regurgitation. *The right heart chambers are not well visualized. Findings Procedure Info: The study quality is poor. The study is technically limited due to poor acoustic windows. Left Ventricle: The left ventricular chamber size is normal. Mild concentric left ventricular hypertrophy is observed. Global left ventricular systolic function is normal. The estimated ejection fraction is 55-60%. Left Atrium: The left atrial chamber size is normal. Right Ventricle: The right ventricle is not well visualized. Right Atrium: The right atrium is not well visualized. Aortic Valve: The aortic valve leaflets are mildly thickened. There is no evidence of aortic regurgitation. There is no evidence of aortic stenosis. Mitral Valve: The mitral valve leaflets are mildly thickened. There is trace of mitral regurgitation. There is no evidence of mitral stenosis. Tricuspid Valve: The tricuspid valve is not well visualized. Pulmonic Valve: The pulmonic valve is not well visualized. Pericardium: There is no pericardial effusion. Aorta: There is no dilatation of the aortic root. Venous: The inferior vena cava appears normal in size. Measurements Chambers 2D Name Value Normal Range IVSd (2D) 1.02 cm (0.6 - 1.1) LVPWd (2D) 1.02 cm (0.6 - 1.1) LVIDd (2D) 4.88 cm (3.7 - 5.6) LVIDs (2D) 3.22 cm (2 - 3.8) LV FS (2D) 33.94 % - EF Teichholz (2D) 62.68 % - Ao root diameter (2D) 2.8 cm (2 - 3.7) Diastolic/Systolic Function Name Value Normal Range MV E-wave Vmax 0.37 m/sec - MV deceleration time 185.21 msec - MV A-wave Vmax 0.35 m/sec - MV E:A ratio 1.07 ratio - Aortic Valve Name Value Normal Range AV Vmax 1.29 m/sec - AV VTI 24.04 cm - AV peak gradient 6.69 mmHg - AV mean gradient 3.19 mmHg - LVOT diameter 2.01 cm - LVOT Vmax 1.07 m/sec - LVOT VTI 21.78 cm - LVOT peak gradient 4.56 mmHg - LVOT mean gradient 2.37 mmHg - SV LVOT 69.26 ml - LEOBARDO (continuity Vmax) 2.63 cm2 - LEOBARDO (continuity VTI) 2.88 cm2 - Pulmonic Valve/Qp:Qs Name Value Normal Range PV acceleration time 95.15 msec - Beal/IV: Voiding Method Indwelling Catheter Active Medications - Current Medications Current Medications: Generic Name Dose Route Start Last Admin Trade Name Freq PRN Reason Stop Dose Admin Acetaminophen 650 mg 07/06/20 11:01 07/09/20 16:35 Acetaminophen 325 Mg Tab PO 650 mg Q4H PRN Administration Pain MILD(1-3)/Fever >100.5/OHARA Acetaminophen 650 mg 07/08/20 01:34 07/08/20 02:04 Acetaminophen 650 Mg Rect Supp [place] 650 mg Q4H PRN Administration PainMild (1-3),fever>100.5,OHARA Al Hydrox/Mg Hydrox/Simethicone 30 ml 07/06/20 11:01 Alum-Mag Hydroxide-Simethicone [id number]/5ml Oral Liqd 30 Ml PO Q4H PRN Indigestion Lipase/Protease/Amylase 1 each 07/13/20 11:45 Lipase 10,500/Protease 25,000/Amylase 43,750 (Units) Dr Juárez FEEDTUBE PRN PRN For Clogged Feeding Tube Ascorbic Acid 500 mg 07/06/20 16:00 07/16/20 10:01 Ascorbic Acid 500 Mg Tab PO 500 mg QDAY MITALI Administration Dextrose 50 ml 07/06/20 11:01 Dextrose 50% In Water (25gm) 50 Ml Syringe IV Q30MIN PRN Hypoglycemia Protocol Docusate Sodium 100 mg 07/14/20 10:00 07/16/20 10:06 Docusate Sodium 100 Mg/10 Ml Oral Liqd FEEDTUBE Not Given BID MITALI Famotidine 20 mg 07/07/20 10:00 07/16/20 10:01 Famotidine 20 Mg/2 Ml Inj IV 20 mg DAILY MITALI Administration Fentanyl 50 mcg 07/13/20 10:23 Fentanyl 100 Mcg/2 Ml Inj IV Q10MIN PRN ANALGESIA Haloperidol Lactate 5 mg 07/10/20 09:00 07/13/20 03:27 Haloperidol Lactate 5 Mg/1 Ml Inj IV 5 mg Q6H PRN Administration Agitation Heparin Sodium (Porcine) 7,500 unit 07/07/20 14:00 07/16/20 06:42 Heparin 5,000 Unit/1 Ml Vial SUB-Q 7,500 unit Q8HR MITALI Administration Hydrocortisone Sodium Succinate 100 mg 07/16/20 15:00 Hydrocortisone Sod Succ 100 Mg/2 Ml Vial IV Q8HR MITALI Hydrophilic Ointment 1 applic 07/13/20 10:23 Lip Therapy Vaseline TP Q2HR PRN Dry Lips Fentanyl Citrate 2,000 mcg in 100 mls @ 3.475 mls/hr 07/13/20 11:00 07/16/20 11:39 Fentanyl Drip Premix IV 4 mcg/kg/hr TITR MITALI 13.9 mls/hr Administration Protocol 1 MCG/KG/HR Midazolam HCl 100 mg/ Sodium 100 mls @ 2 mls/hr 07/15/20 11:00 07/15/20 16:00 Chloride IV 5 mg/hr TITR MITALI 5 mls/hr Titration Protocol 2 MG/HR Cisatracurium Besylate 10 mg/ 100 mls @ 9.21 mls/hr 07/15/20 11:00 07/16/20 10:01 Sodium Chloride IV 07/17/20 10:59 0.25 mcg/kg/min TITR MITALI 9.21 mls/hr Administration Protocol 0.25 MCG/KG/MIN Sodium Bicarbonate 150 meq/ 1,150 mls @ 75 mls/hr 07/16/20 11:00 Dextrose IV DIRECT MITALI Sodium Chloride 1,000 mls @ 999 mls/hr 07/16/20 14:25 Nacl 0.9% 1000 Ml IV 07/16/20 15:25 BOLUS ONE Insulin Human Isoph/Insulin Regular 30 unit 07/16/20 17:00 Insulin Nph/Regular 70/30 Inj SUB-Q BIDDIAB MITALI Insulin Human Isoph/Insulin Regular 8 unit 07/16/20 12:00 07/16/20 12:00 Insulin Nph/Regular 70/30 Inj SUB-Q 07/16/20 15:00 8 unit ONCE MITALI Administration Insulin Human Lispro 0 unit 07/16/20 12:00 07/16/20 12:19 Insulin Lispro 100 Unit/Ml SUB-Q Not Given Q6HR [facility] Protocol Lorazepam 0.5 mg 07/08/20 11:00 07/14/20 23:26 Lorazepam 2 Mg/Ml Vial IV 0.5 mg Q4H PRN Administration Anxiety Midazolam HCl 2 mg 07/15/20 10:48 Midazolam 2 Mg/2 Ml Inj IV Q10MIN PRN Sedation Multi-Ingred Cream/Lotion/Oil/Oint 1 applic 07/13/20 10:23 Mineral Oil/Petrolatum, White Ophth Oint 3.5 Gm OU Q4HR PRN Dry Eye(s) Multi-Ingred Cream/Lotion/Oil/Oint 1 applic 07/15/20 12:00 07/16/20 12:18 Mineral Oil/Petrolatum, White Ophth Oint 3.5 Gm OU 1 applic Q6H MITALI Administration Ondansetron HCl 4 mg 07/06/20 11:01 Ondansetron 4 Mg/2 Ml Inj IV Q8H PRN Nausea And Vomiting Oxycodone/Acetaminophen 1 tab 07/06/20 11:01 Oxycodone /Acetaminophen 5-325mg Tab PO Q6H PRN Pain, Moderate (4-6) Senna 8.6 mg 07/06/20 22:00 07/16/20 10:06 Sennosides 8.6 Mg Tab PO Not Given Q12HR MITALI Simple Syrup 15 ml 07/13/20 11:45 Simple Syrup 15 Ml FEEDTUBE PRN PRN Hypoglycemia Simple Syrup 30 ml 07/13/20 11:45 Simple Syrup 15 Ml FEEDTUBE PRN PRN Hypoglycemia Sodium Bicarbonate 325 mg 07/13/20 11:45 Sodium Bicarbonate 325 Mg Tab FEEDTUBE PRN PRN For Clogged Feeding Tube Sodium Chloride 10 ml 07/06/20 22:00 07/16/20 10:01 Sodium Chloride 0.9% 10 Ml Flush Syringe IV 10 ml BID MITALI Administration Sodium Chloride 10 ml 07/06/20 11:01 Sodium Chloride 0.9% 10 Ml Flush Syringe IV PRN PRN LINE FLUSH Sodium Chloride 5 ml 07/15/20 11:13 Sodium Chloride 0.9% 500 Ml Ivpb IV PRN PRN ART LINE Zinc Sulfate 220 mg 07/06/20 16:00 07/16/20 10:01 Zinc Sulfate 220 Mg Cap PO 220 mg QDAY MITALI Administration Nutrition/Malnutrition Assess - Dietary Evaluation Nutrition/Malnutrition Findings: Nutrition Notes Start: 07/13/20 10:55 Freq: Status: Active Protocol: Document 07/15/20 11:47 AL (Rec: 07/15/20 11:58 AL [id number]) Co-Sign 07/15/20 11:47 MK Nutrition Notes Initial or Follow up Reassessment Current Diagnosis Diabetes,Hypertension, Hyperlipidemia Other Pertinent Diagnosis COVID-19 (+) Current Diet Vital AF at 50 ml/hr Labs/Tests POC BG 388 07/14: BUN 66 Cr 1.2 Pertinent Medications Colace Humalog Height 5 ft 2 in Weight 61.4 kg [place] Body Weight (kg) 50.00 BMI 24.7 Weight change and time frame wt change noted. Will follow up for fluctuations. Weight Status Appropriate Subjective/Other Information FU for TF start. PT tolerating Vital AF at 50 ml/hr. CARMEN resolved. Percent of energy/protein needs met: 100%/100% Burn Absent Trauma Absent GI Symptoms None Current % PO Negligible Minimum of two criteria No physical signs of malnutrition #1 Nutrition Diagnosis Inadequate oral intake Diagnosis Progress(for reassessment Continues documentation) Is patient on ventilator? Yes Is Patient Ambulatory and/or Out of Bed No REE-([place]-St. Jeor-confined to bed) 1310.688 Kcal/Kg value to use for calculation 23 Approximate Energy Requirements Using 1412 kcal/Kg Calculation Used for Recommendations Kcal/kg Additional Notes Pro: 83-139 g (1.2-2.0 kcal/kg ) Fluid: 1 ml/kcal or per MD order Nutrition Intervention Change Diet Order: Continue TF Nutrition Support: Vital AF 1.2 at 50 ml/hr Flush 100 ml/hr Kcal 1,440 Protein (gm) 90 Fluid (mL) 1,003 Goal #1 Meet at least 75% of total energy and protein needs. Anticipated Discharge Needs: Unable to determine at this time Follow-Up By: 07/20/20 Additional Comments F/U for TF tolerance, BG, and wt status <PONCE MOREJON R - Last Filed: 07/17/20 12:46> Assessment and Plan Assessment and plan: I saw and evaluated the patient. I agree with the findings and the plan of care as documented in the Nurse Practitioner's~note, with the following corrections and additions. The high probability of a clinically significant, sudden or life threatening deterioration of the [CNC, CVS, respiratory, renal] system(s) required my full and direct attention, intervention and personal management. The aggregate critical care time was [35] minutes. This time is in addition to time spent performing reported procedures but includes the following: [x] Data Review and interpretation [x] Patient assessment and monitoring of vital signs [x] Documentation [x] Medication orders and management Hospitalist Physical - Constitutional Vitals: Temp Pulse Resp BP Pulse Ox 99.0 F 110 H 22 103/58 93 07/17/20 12:00 07/17/20 12:00 07/17/20 12:00 07/17/20 12:00 07/17/20 12:00 HEART Score - HEART Score Troponin: Troponin T < 0.010 ng/mL (0.00-0.029) 07/07/20 00:22 Results - Labs CBC & Chem 7: 07/17/20 Unknown 07/17/20 Unknown Labs: Laboratory Last Values WBC 14.1 K/mm3 (4.5-11.0) H 07/17/20 Unknown RBC 3.84 M/mm3 (3.65-5.03) 07/17/20 Unknown Hgb 9.8 gm/dl (10.1-14.3) L 07/17/20 Unknown Hct 31.6 % (30.3-42.9) 07/17/20 Unknown MCV 82 fl (79-97) 07/17/20 Unknown MCH 26 pg (28-32) L 07/17/20 Unknown MCHC 31 % (30-34) 07/17/20 Unknown RDW 15.8 % (13.2-15.2) H 07/17/20 Unknown Plt Count 74 K/mm3 (140-440) L 07/17/20 Unknown Lymph % (Auto) 4.3 % (13.4-35.0) L 07/09/20 06:51 Camp % (Auto) 3.6 % (0.0-7.3) 07/09/20 06:51 Eos % (Auto) 0.6 % (0.0-4.3) 07/09/20 06:51 Baso % (Auto) 0.3 % (0.0-1.8) 07/09/20 06:51 Lymph # (Auto) 0.4 K/mm3 (1.2-5.4) L 07/09/20 06:51 Camp # (Auto) 0.4 K/mm3 (0.0-0.8) 07/09/20 06:51 Eos # (Auto) 0.1 K/mm3 (0.0-0.4) 07/09/20 06:51 Baso # (Auto) 0.0 K/mm3 (0.0-0.1) 07/09/20 06:51 Add Manual Diff Complete 07/12/20 05:18 Total Counted 100 07/12/20 05:18 Seg Neutrophils % Hvac Maintenance Technician 07/12/20 05:18 Seg Neuts % (Manual) 93.0 % (40.0-70.0) H 07/12/20 05:18 Band Neutrophils % 4.0 % 07/07/20 02:42 Lymphocytes % (Manual) 4.0 % (13.4-35.0) L 07/12/20 05:18 Monocytes % (Manual) 3.0 % (0.0-7.3) 07/12/20 05:18 Metamyelocytes % 1.0 % 07/10/20 05:25 Nucleated RBC % Not Reportable 07/12/20 05:18 Seg Neutrophils # 9.1 K/mm3 (1.8-7.7) H 07/09/20 06:51 Seg Neutrophils # Man 11.7 K/mm3 (1.8-7.7) H 07/12/20 05:18 Band Neutrophils # 0.0 K/mm3 07/12/20 05:18 Lymphocytes # (Manual) 0.5 K/mm3 (1.2-5.4) L 07/12/20 05:18 Abs React Lymphs (Man) 0.0 K/mm3 07/12/20 05:18 Monocytes # (Manual) 0.4 K/mm3 (0.0-0.8) 07/12/20 05:18 Eosinophils # (Manual) 0.0 K/mm3 (0.0-0.4) 07/12/20 05:18 Basophils # (Manual) 0.0 K/mm3 (0.0-0.1) 07/12/20 05:18 Metamyelocytes # 0.0 K/mm3 07/12/20 05:18 Myelocytes # 0.0 K/mm3 07/12/20 05:18 Promyelocytes # 0.0 K/mm3 07/12/20 05:18 Blast Cells # 0.0 K/mm3 07/12/20 05:18 WBC Morphology Not Reportable 07/12/20 05:18 Hypersegmented Neuts Not Reportable 07/12/20 05:18 Hyposegmented Neuts Not Reportable 07/12/20 05:18 Hypogranular Neuts Not Reportable 07/12/20 05:18 Smudge Cells Not Reportable 07/12/20 05:18 Toxic Granulation Not Reportable 07/12/20 05:18 Toxic Vacuolation Not Reportable 07/12/20 05:18 Dohle Bodies Not Reportable 07/12/20 05:18 Pelger-Huet Anomaly Not Reportable 07/12/20 05:18 Rudy Rods Not Reportable 07/12/20 05:18 Platelet Estimate Consistent w auto 07/12/20 05:18 Clumped Platelets Not Reportable 07/12/20 05:18 Plt Clumps, EDTA Not Reportable 07/12/20 05:18 Large Platelets Not Reportable 07/12/20 05:18 Giant Platelets Not Reportable 07/12/20 05:18 Platelet Satelliting Not Reportable 07/12/20 05:18 Plt Morphology Comment Not Reportable 07/12/20 05:18 RBC Morphology Not Reportable 07/12/20 05:18 Dimorphic RBCs Not Reportable 07/12/20 05:18 Polychromasia Not Reportable 07/12/20 05:18 Hypochromasia Not Reportable 07/12/20 05:18 Poikilocytosis Not Reportable 07/12/20 05:18 Anisocytosis 1+ 07/12/20 05:18 Microcytosis Not Reportable 07/12/20 05:18 Macrocytosis Not Reportable 07/12/20 05:18 Spherocytes Not Reportable 07/12/20 05:18 Pappenheimer Bodies Not Reportable 07/12/20 05:18 Sickle Cells Not Reportable 07/12/20 05:18 Target Cells Not Reportable 07/12/20 05:18 Tear Drop Cells Not Reportable 07/12/20 05:18 Ovalocytes Not Reportable 07/12/20 05:18 Helmet Cells Not Reportable 07/12/20 05:18 [place] Bodies Not Reportable 07/12/20 05:18 [place] Rings Not Reportable 07/12/20 05:18 [place] Cells Not Reportable 07/12/20 05:18 Bite Cells Not Reportable 07/12/20 05:18 Crenated Cell Not Reportable 07/12/20 05:18 Elliptocytes Not Reportable 07/12/20 05:18 Acanthocytes (Spur) Not Reportable 07/12/20 05:18 Rouleaux Not Reportable 07/12/20 05:18 Hemoglobin C Crystals Not Reportable 07/12/20 05:18 Schistocytes Not Reportable 07/12/20 05:18 Malaria parasites Not Reportable 07/12/20 05:18 Shreyas Bodies Not Reportable 07/12/20 05:18 Hem Pathologist Commnt No 07/12/20 05:18 PT 14.7 Sec. (12.2-14.9) 07/06/20 08:50 INR 1.15 (0.87-1.13) H 07/06/20 08:50 APTT 25.9 Sec. (24.2-36.6) 07/06/20 08:50 D-Dimer 1786.87 ng/mlDDU (0-234) H 07/10/20 05:25 ABG pH 7.209 (7.320-7.450) L 07/17/20 05:10 POC ABG pCO2 62.7 mmHg (32.0-48.0) H 07/17/20 05:10 ABG pCO2 32.9 mm Hg 07/13/20 15:50 POC ABG pO2 60.6 mmHg (83-108) L 07/17/20 05:10 ABG pO2 73.7 mm Hg (80.0-90.0) L 07/13/20 15:50 POC ABG HCO3 24.5 07/17/20 05:10 ABG HCO3 21.0 mmol/L (20.0-26.0) 07/13/20 15:50 ABG O2 Saturation 94.5 % (95.0-99.0) L 07/13/20 15:50 ABG O2 Content 12.6 (0.0-44) 07/13/20 15:50 POC ABG Base Excess -4.0 07/17/20 05:10 ABG Base Excess -2.9 mmol/L (-2.0-3.0) L 07/13/20 15:50 ABG Hemoglobin 10.7 (12.0-17.5) L 07/17/20 05:10 ABG Oxyhemoglobin 84 (94-98) L 07/17/20 05:10 ABG Carboxyhemoglobin 1.3 % (0.0-5.0) 07/13/20 15:50 ABG Methemoglobin 0 (0.0-1.5) 07/17/20 05:10 ABG Sodium 138.9 mmol/L (136.0-145.0) 07/17/20 05:10 ABG Potassium 4.5 mmol/L (3.40-4.50) 07/17/20 05:10 ABG Chloride 106.0 mmol/L (98-107) 07/17/20 05:10 ABG Glucose 450 mg/dL (65-95) H 07/17/20 05:10 Oxyhemoglobin 92.8 % (95.0-99.0) L 07/13/20 15:50 Carboxyhemoglobin 1.1 (0.5-1.5) 07/17/20 05:10 FiO2 60 07/17/20 05:10 Sodium 147 mmol/L (137-145) H D 07/17/20 Unknown Potassium 4.8 mmol/L (3.6-5.0) 07/17/20 Unknown Chloride 107.8 mmol/L (98-107) H 07/17/20 Unknown Carbon Dioxide 29 mmol/L (22-30) D 07/17/20 Unknown Anion Gap 15 mmol/L 07/17/20 Unknown BUN 129 mg/dL (7-17) H 07/17/20 Unknown Creatinine 2.2 mg/dL (0.6-1.2) H 07/17/20 Unknown Estimated GFR 22 ml/min 07/17/20 Unknown BUN/Creatinine Ratio 59 % 07/17/20 Unknown Glucose 471 mg/dL (65-100) H 07/17/20 Unknown POC Glucose 333 mg/dL (70-105) H 07/17/20 05:10 Hemoglobin A1c 11.8 % (4-6) H 07/06/20 15:44 Lactic Acid 1.60 mmol/L (0.7-2.0) 07/07/20 08:55 Calcium 7.8 mg/dL (8.4-10.2) L 07/17/20 Unknown Ferritin 920.8 ng/mL (10.0-200.0) H 07/10/20 05:25 Total Bilirubin 1.00 mg/dL (0.1-1.2) 07/11/20 06:08 AST 38 units/L (5-40) 07/11/20 06:08 ALT 24 units/L (7-56) 07/11/20 06:08 Alkaline Phosphatase 107 units/L (35-129) 07/11/20 06:08 Lactate Dehydrogenase 683 units/L (91-180) H 07/06/20 15:44 Total Creatine Kinase 47 units/L (30-135) 07/07/20 00:22 CK-MB (CK-2) 1.6 ng/mL (0.0-4.0) 07/07/20 00:22 CK-MB (CK-2) Rel Index 3.4 (0-4) 07/07/20 00:22 Troponin T < 0.010 ng/mL (0.00-0.029) 07/07/20 00:22 C-Reactive Protein 2.80 mg/dL (0.00-1.30) H 07/10/20 05:25 NT-Pro-B Natriuret Pep 459.9 pg/mL (0-900) 07/07/20 14:31 Total Protein 6.8 g/dL (6.3-8.2) 07/11/20 06:08 Albumin 3.0 g/dL (3.9-5) L 07/11/20 06:08 Albumin/Globulin Ratio 0.8 % 07/11/20 06:08 Triglycerides 215 mg/dL (2-149) H 07/16/20 Unknown Procalcitonin 7.48 ng/mL (<0.15) 07/06/20 15:44 TSH 0.420 mlU/mL (0.270-4.200) 07/08/20 05:07 Arterial Blood Glucose 450 mg/dL (65-95) H 07/17/20 05:10 Arterial Blood Ionized Calcium 4.7 mg/dL (4.6-5.3) 07/17/20 05:10 Urine Color [place] (Yellow) 07/16/20 11:30 Urine Turbidity Cloudy (Clear) 07/16/20 11:30 Urine pH 5.0 (5.0-7.0) 07/16/20 11:30 Ur Specific [place] 1.018 (1.003-1.030) 07/16/20 11:30 Urine Protein 30 mg/dl mg/dL (Negative) 07/16/20 11:30 Urine Glucose (UA) Neg mg/dL (Negative) 07/16/20 11:30 Urine Ketones Neg mg/dL (Negative) 07/16/20 11:30 Urine Blood Mod (Negative) 07/16/20 11:30 Urine Nitrite Neg (Negative) 07/16/20 11:30 Urine Bilirubin Neg (Negative) 07/16/20 11:30 Urine Urobilinogen 4.0 mg/dL (<2.0) 07/16/20 11:30 Ur Leukocyte Esterase Tr (Negative) 07/16/20 11:30 Urine WBC (Auto) 11.0 /HPF (0.0-6.0) H 07/16/20 11:30 Urine RBC (Auto) 22.0 /HPF (0.0-6.0) 07/16/20 11:30 U Epithel Cells (Auto) 2.0 /HPF (0-13.0) 07/16/20 11:30 Urine Bacteria (Auto) 1+ /HPF (Negative) 07/07/20 03:35 Urine Mucus Few /HPF 07/16/20 11:30 Urine Osmolality 731 Mosm/kg 07/07/20 03:35 Urine Creatinine 149.3 mg/dL (0.1-20.0) H 07/16/20 11:30 Urine Sodium 24 mmol/L 07/16/20 11:30 Urine Urea Nitrogen 457 07/16/20 11:30 Coronavirus (PCR) Positive (Negative) A 07/06/20 09:26 Microbiology: Microbiology 07/13/20 10:46 Tracheal Aspirate Sputum Culture - Final 07/16/20 11:30 Urine,Clean Catch Urine Culture - Preliminary NO GROWTH AFTER 24 HOURS - Diagnostic Impressions Diagnostic Impressions: Echocardiogram 07/08/20 09:36 Transthoracic Echocardiogram Indication: Chest pain BP: 129/66 HR: 67 Conclusions *The study is technically limited due to poor acoustic windows. *Global left ventricular systolic function is normal. *The estimated ejection fraction is greater than 55-60%. *Mild concentric left ventricular hypertrophy is observed. *There is trace of mitral regurgitation. *The right heart chambers are not well visualized. Findings Procedure Info: The study quality is poor. The study is technically limited due to poor acoustic windows. Left Ventricle: The left ventricular chamber size is normal. Mild concentric left ventricular hypertrophy is observed. Global left ventricular systolic function is normal. The estimated ejection fraction is 55-60%. Left Atrium: The left atrial chamber size is normal. Right Ventricle: The right ventricle is not well visualized. Right Atrium: The right atrium is not well visualized. Aortic Valve: The aortic valve leaflets are mildly thickened. There is no evidence of aortic regurgitation. There is no evidence of aortic stenosis. Mitral Valve: The mitral valve leaflets are mildly thickened. There is trace of mitral regurgitation. There is no evidence of mitral stenosis. Tricuspid Valve: The tricuspid valve is not well visualized. Pulmonic Valve: The pulmonic valve is not well visualized. Pericardium: There is no pericardial effusion. Aorta: There is no dilatation of the aortic root. Venous: The inferior vena cava appears normal in size. Measurements Chambers 2D Name Value Normal Range IVSd (2D) 1.02 cm (0.6 - 1.1) LVPWd (2D) 1.02 cm (0.6 - 1.1) LVIDd (2D) 4.88 cm (3.7 - 5.6) LVIDs (2D) 3.22 cm (2 - 3.8) LV FS (2D) 33.94 % - EF Teichholz (2D) 62.68 % - Ao root diameter (2D) 2.8 cm (2 - 3.7) Diastolic/Systolic Function Name Value Normal Range MV E-wave Vmax 0.37 m/sec - MV deceleration time 185.21 msec - MV A-wave Vmax 0.35 m/sec - MV E:A ratio 1.07 ratio - Aortic Valve Name Value Normal Range AV Vmax 1.29 m/sec - AV VTI 24.04 cm - AV peak gradient 6.69 mmHg - AV mean gradient 3.19 mmHg - LVOT diameter 2.01 cm - LVOT Vmax 1.07 m/sec - LVOT VTI 21.78 cm - LVOT peak gradient 4.56 mmHg - LVOT mean gradient 2.37 mmHg - SV LVOT 69.26 ml - LEOBARDO (continuity Vmax) 2.63 cm2 - LEOBARDO (continuity VTI) 2.88 cm2 - Pulmonic Valve/Qp:Qs Name Value Normal Range PV acceleration time 95.15 msec - Beal/IV: Voiding Method Indwelling Catheter Active Medications - Current Medications Current Medications: Generic Name Dose Route Start Last Admin Trade Name Freq PRN Reason Stop Dose Admin Acetaminophen 650 mg 07/06/20 11:01 07/09/20 16:35 Acetaminophen 325 Mg Tab PO 650 mg Q4H PRN Administration Pain MILD(1-3)/Fever >100.5/OHARA Acetaminophen 650 mg 07/08/20 01:34 07/08/20 02:04 Acetaminophen 650 Mg Rect Supp [place] 650 mg Q4H PRN Administration PainMild (1-3),fever>100.5,OHARA Al Hydrox/Mg Hydrox/Simethicone 30 ml 07/06/20 11:01 Alum-Mag Hydroxide-Simethicone [id number]/5ml Oral Liqd 30 Ml PO Q4H PRN Indigestion Lipase/Protease/Amylase 1 each 07/13/20 11:45 Lipase 10,500/Protease 25,000/Amylase 43,750 (Units) Dr Juárez FEEDTUBE PRN PRN For Clogged Feeding Tube Ascorbic Acid 500 mg 07/06/20 16:00 07/17/20 10:52 Ascorbic Acid 500 Mg Tab PO 500 mg QDAY MITALI Administration Dextrose 50 ml 07/06/20 11:01 Dextrose 50% In Water (25gm) 50 Ml Syringe IV Q30MIN PRN Hypoglycemia Protocol Docusate Sodium 100 mg 07/14/20 10:00 07/17/20 10:52 Docusate Sodium 100 Mg/10 Ml Oral Liqd FEEDTUBE 100 mg BID MITALI Administration Famotidine 20 mg 07/07/20 10:00 07/17/20 10:52 Famotidine 20 Mg/2 Ml Inj IV 20 mg DAILY MITALI Administration Fentanyl 50 mcg 07/13/20 10:23 Fentanyl 100 Mcg/2 Ml Inj IV Q10MIN PRN ANALGESIA Haloperidol Lactate 5 mg 07/10/20 09:00 07/13/20 03:27 Haloperidol Lactate 5 Mg/1 Ml Inj IV 5 mg Q6H PRN Administration Agitation Heparin Sodium (Porcine) 7,500 unit 07/07/20 14:00 07/17/20 05:38 Heparin 5,000 Unit/1 Ml Vial SUB-Q 7,500 unit Q8HR MITALI Administration Hydrocortisone Sodium Succinate 100 mg 07/16/20 15:00 07/17/20 05:35 Hydrocortisone Sod Succ 100 Mg/2 Ml Vial IV 100 mg Q8HR MITALI Administration Hydrophilic Ointment 1 applic 07/13/20 10:23 Lip Therapy Vaseline TP Q2HR PRN Dry Lips Fentanyl Citrate 2,000 mcg in 100 mls @ 3.475 mls/hr 07/13/20 11:00 07/17/20 05:35 Fentanyl Drip Premix IV 4 mcg/kg/hr TITR MITALI 13.9 mls/hr Administration Protocol 1 MCG/KG/HR Midazolam HCl 100 mg/ Sodium 100 mls @ 2 mls/hr 07/15/20 11:00 07/17/20 04:32 Chloride IV 2 mg/hr TITR MITALI 2 mls/hr Administration Protocol 2 MG/HR Sodium Bicarbonate 150 meq/ 1,150 mls @ 75 mls/hr 07/16/20 11:00 07/17/20 04:31 Dextrose IV 75 mls/hr DIRECT MITALI Administration Insulin Human Isoph/Insulin Regular 30 unit 07/16/20 17:00 07/17/20 08:05 Insulin Nph/Regular 70/30 Inj SUB-Q 30 unit BIDDIAB MITALI Administration Insulin Human Lispro 0 unit 07/16/20 12:00 07/17/20 05:38 Insulin Lispro 100 Unit/Ml SUB-Q 6 unit Q6HR MITALI Administration Protocol Lorazepam 0.5 mg 07/08/20 11:00 07/14/20 23:26 Lorazepam 2 Mg/Ml Vial IV 0.5 mg Q4H PRN Administration Anxiety Midazolam HCl 2 mg 07/15/20 10:48 Midazolam 2 Mg/2 Ml Inj IV Q10MIN PRN Sedation Multi-Ingred Cream/Lotion/Oil/Oint 1 applic 07/13/20 10:23 Mineral Oil/Petrolatum, White Ophth Oint 3.5 Gm OU Q4HR PRN Dry Eye(s) Multi-Ingred Cream/Lotion/Oil/Oint 1 applic 07/15/20 12:00 07/17/20 05:35 Mineral Oil/Petrolatum, White Ophth Oint 3.5 Gm OU 1 applic Q6H MITALI Administration Ondansetron HCl 4 mg 07/06/20 11:01 Ondansetron 4 Mg/2 Ml Inj IV Q8H PRN Nausea And Vomiting Oxycodone/Acetaminophen 1 tab 07/06/20 11:01 Oxycodone /Acetaminophen 5-325mg Tab PO Q6H PRN Pain, Moderate (4-6) Senna 8.6 mg 07/06/20 22:00 07/17/20 10:52 Sennosides 8.6 Mg Tab PO Not Given Q12HR MITALI Simple Syrup 15 ml 07/13/20 11:45 Simple Syrup 15 Ml FEEDTUBE PRN PRN Hypoglycemia Simple Syrup 30 ml 07/13/20 11:45 Simple Syrup 15 Ml FEEDTUBE PRN PRN Hypoglycemia Sodium Bicarbonate 325 mg 07/13/20 11:45 Sodium Bicarbonate 325 Mg Tab FEEDTUBE PRN PRN For Clogged Feeding Tube Sodium Chloride 10 ml 07/06/20 22:00 07/17/20 10:52 Sodium Chloride 0.9% 10 Ml Flush Syringe IV 10 ml BID MITALI Administration Sodium Chloride 10 ml 07/06/20 11:01 Sodium Chloride 0.9% 10 Ml Flush Syringe IV PRN PRN LINE FLUSH Sodium Chloride 5 ml 07/15/20 11:13 Sodium Chloride 0.9% 500 Ml Ivpb IV PRN PRN ART LINE Zinc Sulfate 220 mg 07/06/20 16:00 07/17/20 10:52 Zinc Sulfate 220 Mg Cap PO 220 mg QDAY MITALI Administration Nutrition/Malnutrition Assess - Dietary Evaluation Nutrition/Malnutrition Findings: Nutrition Notes Start: 07/13/20 10:55 Freq: Status: Active Protocol: Document 07/15/20 11:47 AL (Rec: 07/15/20 11:58 AL [id number]) Co-Sign 07/15/20 11:47 MK Nutrition Notes Initial or Follow up Reassessment Current Diagnosis Diabetes,Hypertension, Hyperlipidemia Other Pertinent Diagnosis COVID-19 (+) Current Diet Vital AF at 50 ml/hr Labs/Tests POC BG 388 07/14: BUN 66 Cr 1.2 Pertinent Medications Colace Humalog Height 5 ft 2 in Weight 61.4 kg [place] Body Weight (kg) 50.00 BMI 24.7 Weight change and time frame wt change noted. Will follow up for fluctuations. Weight Status Appropriate Subjective/Other Information FU for TF start. PT tolerating Vital AF at 50 ml/hr. CARMEN resolved. Percent of energy/protein needs met: 100%/100% Burn Absent Trauma Absent GI Symptoms None Current % PO Negligible Minimum of two criteria No physical signs of malnutrition #1 Nutrition Diagnosis Inadequate oral intake Diagnosis Progress(for reassessment Continues documentation) Is patient on ventilator? Yes Is Patient Ambulatory and/or Out of Bed No REE-([place]-St. Jeor-confined to bed) 1310.688 Kcal/Kg value to use for calculation 23 Approximate Energy Requirements Using 1412 kcal/Kg Calculation Used for Recommendations Kcal/kg Additional Notes Pro: 83-139 g (1.2-2.0 kcal/kg ) Fluid: 1 ml/kcal or per MD order Nutrition Intervention Change Diet Order: Continue TF Nutrition Support: Vital AF 1.2 at 50 ml/hr Flush 100 ml/hr Kcal 1,440 Protein (gm) 90 Fluid (mL) 1,003 Goal #1 Meet at least 75% of total energy and protein needs. Anticipated Discharge Needs: Unable to determine at this time Follow-Up By: 07/20/20 Additional Comments F/U for TF tolerance, BG, and wt status
--- NOTE | 2020-07-16 15:21 | Consultation ---
History of Present Illness - Reason for Consult Consult date: 07/16/20 acute renal failure, metabolic acidosis - History of Present Illness This is a 69-year-old Laotian female with limited Lao with hypertension, diabetes mellitus, hyperlipidemia who presented to the hospital on 07/06 via EMS with worsening subjective fevers, headache, body ache, dry cough, dyspnea on exertion, fatigue, headache and nausea since the last week end of May. Has been treated in ICU for COVID-19. Nephrology consulted today for worsening acidosis, decreasing urine output, CARMEN. Patient intubated and sedated, HPI obtained from chart review. Past History Past Medical History: diabetes, hypertension, hyperlipidemia Past Surgical History: cholecystectomy (2018) Social history: , lives with family, full code. denies: smoking, alcohol abuse, prescription drug abuse, IV drug use Family history: no significant family history Medications and Allergies Allergies Allergy/AdvReac Type Severity Reaction Status Date / Time No Known Allergies Allergy Unverified 08/20/15 08:58 Home Medications Medication Instructions Recorded Confirmed Last Taken Type AtorvaSTATin [Lipitor] 20 mg PO QHS 07/14/20 07/14/20 Unknown History Insulin Aspart Prot/Insuln Asp SQ 07/14/20 Unknown History [Novolog Mix 70-30 Flexpen] Losartan/Hydrochlorothiazide 1 each PO 07/14/20 Unknown History [Losartan-Hctz 100-25 mg Tab] metFORMIN [Glucophage] 850 mg PO BID 07/14/20 07/14/20 Unknown History Active Meds: Active Medications Acetaminophen (Acetaminophen 325 Mg Tab) 650 mg PO Q4H PRN PRN Reason: Pain MILD(1-3)/Fever >100.5/OHARA Last Admin: 07/09/20 16:35 Dose: 650 mg Documented by: Acetaminophen (Acetaminophen 650 Mg Rect Supp) 650 mg WI Q4H PRN PRN Reason: PainMild (1-3),fever>100.5,OHARA Last Admin: 07/08/20 02:04 Dose: 650 mg Documented by: Al Hydrox/Mg Hydrox/Simethicone (Alum-Mag Hydroxide-Simethicone [phone]/5ml Oral Liqd 30 Ml) 30 ml PO Q4H PRN PRN Reason: Indigestion Lipase/Protease/Amylase (Lipase 10,500/Protease 25,000/Amylase 43,750 (Units) Dr Juárez) 1 each FEEDTUBE PRN PRN PRN Reason: For Clogged Feeding Tube Ascorbic Acid (Ascorbic Acid 500 Mg Tab) 500 mg PO QDAY [facility] Last Admin: 07/16/20 10:01 Dose: 500 mg Documented by: Dextrose (Dextrose 50% In Water (25gm) 50 Ml Syringe) 50 ml IV Q30MIN PRN; Protocol PRN Reason: Hypoglycemia Docusate Sodium (Docusate Sodium 100 Mg/10 Ml Oral Liqd) 100 mg FEEDTUBE BID [facility] Last Admin: 07/16/20 10:06 Dose: Not Given Documented by: Famotidine (Famotidine 20 Mg/2 Ml Inj) 20 mg IV DAILY [facility] Last Admin: 07/16/20 10:01 Dose: 20 mg Documented by: Fentanyl (Fentanyl 100 Mcg/2 Ml Inj) 50 mcg IV Q10MIN PRN PRN Reason: ANALGESIA Haloperidol Lactate (Haloperidol Lactate 5 Mg/1 Ml Inj) 5 mg IV Q6H PRN PRN Reason: Agitation Last Admin: 07/13/20 03:27 Dose: 5 mg Documented by: Heparin Sodium (Porcine) (Heparin 5,000 Unit/1 Ml Vial) 7,500 unit SUB-Q Q8HR [facility] Last Admin: 07/16/20 06:42 Dose: 7,500 unit Documented by: Hydrocortisone Sodium Succinate (Hydrocortisone Sod Succ 100 Mg/2 Ml Vial) 100 mg IV Q8HR [facility] Hydrophilic Ointment (Lip Therapy Vaseline) 1 applic TP Q2HR PRN PRN Reason: Dry Lips Fentanyl Citrate (Fentanyl Drip Premix) 2,000 mcg in 100 mls @ 3.475 mls/hr IV TITR MITALI; Protocol Last Admin: 07/16/20 11:39 Dose: 4 mcg/kg/hr, 13.9 mls/hr Documented by: Midazolam HCl 100 mg/ Sodium (Chloride) 100 mls @ 2 mls/hr IV TITR MITALI; Protocol Last Titration: 07/15/20 16:00 Dose: 5 mg/hr, 5 mls/hr Documented by: Cisatracurium Besylate 10 mg/ (Sodium Chloride) 100 mls @ 9.21 mls/hr IV TITR MITALI; Protocol Stop: 07/17/20 10:59 Last Admin: 07/16/20 10:01 Dose: 0.25 mcg/kg/min, 9.21 mls/hr Documented by: Sodium Bicarbonate 150 meq/ (Dextrose) 1,150 mls @ 75 mls/hr IV DIRECT [facility] Sodium Chloride (Nacl 0.9% 1000 Ml) 1,000 mls @ 999 mls/hr IV BOLUS ONE Stop: 07/16/20 15:25 Insulin Human Isoph/Insulin Regular (Insulin Nph/Regular 70/30 Inj) 30 unit SUB-Q BIDDIAB [facility] Insulin Human Lispro (Insulin Lispro 100 Unit/Ml) 0 unit SUB-Q Q6HR [facility]; Protocol Last Admin: 07/16/20 12:19 Dose: Not Given Documented by: Lorazepam (Lorazepam 2 Mg/Ml Vial) 0.5 mg IV Q4H PRN PRN Reason: Anxiety Last Admin: 07/14/20 23:26 Dose: 0.5 mg Documented by: Midazolam HCl (Midazolam 2 Mg/2 Ml Inj) 2 mg IV Q10MIN PRN PRN Reason: Sedation Multi-Ingred Cream/Lotion/Oil/Oint (Mineral Oil/Petrolatum, White Ophth Oint 3.5 Gm) 1 applic OU Q4HR PRN PRN Reason: Dry Eye(s) Multi-Ingred Cream/Lotion/Oil/Oint (Mineral Oil/Petrolatum, White Ophth Oint 3.5 Gm) 1 applic OU Q6H [facility] Last Admin: 07/16/20 12:18 Dose: 1 applic Documented by: Ondansetron HCl (Ondansetron 4 Mg/2 Ml Inj) 4 mg IV Q8H PRN PRN Reason: Nausea And Vomiting Oxycodone/Acetaminophen (Oxycodone /Acetaminophen 5-325mg Tab) 1 tab PO Q6H PRN PRN Reason: Pain, Moderate (4-6) Senna (Sennosides 8.6 Mg Tab) 8.6 mg PO Q12HR [facility] Last Admin: 07/16/20 10:06 Dose: Not Given Documented by: Simple Syrup (Simple Syrup 15 Ml) 15 ml FEEDTUBE PRN PRN PRN Reason: Hypoglycemia Simple Syrup (Simple Syrup 15 Ml) 30 ml FEEDTUBE PRN PRN PRN Reason: Hypoglycemia Sodium Bicarbonate (Sodium Bicarbonate 325 Mg Tab) 325 mg FEEDTUBE PRN PRN PRN Reason: For Clogged Feeding Tube Sodium Chloride (Sodium Chloride 0.9% 10 Ml Flush Syringe) 10 ml IV BID [facility] Last Admin: 07/16/20 10:01 Dose: 10 ml Documented by: Sodium Chloride (Sodium Chloride 0.9% 10 Ml Flush Syringe) 10 ml IV PRN PRN PRN Reason: LINE FLUSH Sodium Chloride (Sodium Chloride 0.9% 500 Ml Ivpb) 5 ml IV PRN PRN PRN Reason: ART LINE Zinc Sulfate (Zinc Sulfate 220 Mg Cap) 220 mg PO QDAY [facility] Last Admin: 07/16/20 10:01 Dose: 220 mg Documented by: Review of Systems ROS unobtainable: due to endotracheal tube, due to mental status Exam - Vital Signs Vital signs: Vital Signs Pulse Resp Pulse Ox 68 27 H 80 L 07/06/20 08:16 07/06/20 08:16 07/06/20 08:16 - Physical Exam Narrative exam: Exam deferred given COVID-, reviewed exam of primary. Results - Lab Results 07/16/20 11:14 07/16/20 09:22 Most recent lab results ABG pH 7.096 (7.320-7.450) L 07/16/20 04:00 ABG pCO2 32.9 mm Hg 07/13/20 15:50 ABG pO2 73.7 mm Hg (80.0-90.0) L 07/13/20 15:50 ABG HCO3 21.0 mmol/L (20.0-26.0) 07/13/20 15:50 ABG O2 Saturation 94.5 % (95.0-99.0) L 07/13/20 15:50 Calcium TNR 07/16/20 09:22 Urine Creatinine 149.3 mg/dL (0.1-20.0) H 07/16/20 11:30 Urine Sodium 24 mmol/L 07/16/20 11:30 Assessment and Plan # CARMEN: creatinine 1.1->1.8, no labs this AM, may be related to hyperglycemic related dehydration, also potential tubular injury with hypotension over past 24 hours. Minimal urine output today, previously was non-oliguric - agree with aggressive IVF including HCO3 gtt - maintain MAP>65 as able, off sedation per Dr. Barlow - aggressive glucose control per primary - higher likelihood of needing [facility] DIAGNOSTICIAN, no acute needs today, monitor urine output closely, plan for [facility]ORATORY DIAGNOSTICIAN tomorrow if labs/urine worsening, will need vascath - avoid nephrotoxins - daily renal labs - check renal ultrasound - reviewed prior urine studies # Acidosis: mix of respiratory and metabolic, agree with HCO3 gtt, vent adjusted per pulm to account for excessive CO2 # Sepsis, COVID-19, pneumonia: off steroids as of today, appreciate pulmonary, vent management # DM # Hypotension: BP soft, not currently on pressors, maintain as able
--- NOTE | 2020-07-16 16:14 | Progress Note ---
Assessment and Plan Cultures: SARS CoV2 PCR: Positive 07/06/2020 blood culture: No growth A/P: 69-year-old female with hypertension, diabetes: #Sepsis: Secondary to COVID-19, worsening blood cultures after relative st ability. #Bilateral pneumonia: Secondary to COVID-19. Completed remdesivir. #Acute hypoxic respiratory failure: On HFNC/BiPAP #CARMEN: Monitor renal function, new onset after being improved for several days. #Elevated D-dimer: VTE evaluation negative. Recs: -prophylactic anticoagulation based on d-dimer per hospital protocol -Repeat CBC with diff in the AM. -Repeat CXR in AM as well -If new PNA or WBC stays high would start empiric cefepime 2g q24h based on current renal function. -trend ferritin, LDH, d-dimer, CRP every 2-3 days for risk stratification and to assess disease progression -guarded prognosis -Completed steroids. Addison Kathleen MD [facility] O: [phone] F: [phone] Subjective Date of service: 07/16/20 Interval history: Afebrile, white count elevated at 21.2 after being normal for the past few days. Sputum culture from 07/13/2020 remains negative. New CARMEN Objective - Exam Narrative Exam: Physical exam deferred due to PPE conservation strategy. Please refer to primary team's note. - Constitutional Vitals: Vital Signs Temp Pulse Resp BP Pulse Ox 98.5 F 102 H 14 92/59 97 07/16/20 12:00 07/16/20 13:45 07/16/20 13:45 07/16/20 13:45 07/16/20 13:45 Temperature -Last 24 Hours Temperature 98.5 F Temperature 98.3 F Temperature 97.8 F Temperature 97.4 F Temperature 97.9 F - Labs CBC & Chem 7: 07/16/20 11:14 07/16/20 09:22 Labs: Abnormal lab results 07/15/20 07/15/20 07/15/20 Range/Units 17:41 20:12 22:14 WBC (4.5-11.0) K/mm3 MCH (28-32) pg Plt Count (140-440) K/mm3 ABG pH 7.091 L (7.320-7.450) POC ABG pCO2 62.2 H (32.0-48.0) mmHg POC ABG pO2 (83-108) mmHg ABG Oxyhemoglobin 89.8 L (94-98) ABG Potassium (3.40-4.50) mmol/L ABG Chloride (98-107) mmol/L ABG Glucose 493 H (65-95) mg/dL Carbon Dioxide 18 L (22-30) mmol/L BUN 107 H (7-17) mg/dL Creatinine 1.8 H (0.6-1.2) mg/dL Glucose 523 H* (65-100) mg/dL POC Glucose 414 H (70-105) mg/dL Calcium 8.0 L (8.4-10.2) mg/dL Triglycerides (2-149) mg/dL Arterial Blood Glucose 493 H (65-95) mg/dL Urine WBC (Auto) (0.0-6.0) /HPF Urine Creatinine (0.1-20.0) mg/dL 07/15/20 07/15/20 07/16/20 Range/Units 22:14 23:48 04:00 WBC (4.5-11.0) K/mm3 MCH (28-32) pg Plt Count (140-440) K/mm3 ABG pH 7.132 L 7.096 L (7.320-7.450) POC ABG pCO2 55.9 H 68.5 H (32.0-48.0) mmHg POC ABG pO2 79.1 L 79.7 L (83-108) mmHg ABG Oxyhemoglobin 89.8 L (94-98) ABG Potassium 4.6 H 5.0 H (3.40-4.50) mmol/L ABG Chloride 108.0 H (98-107) mmol/L ABG Glucose 528 H 385 H (65-95) mg/dL Carbon Dioxide (22-30) mmol/L BUN (7-17) mg/dL Creatinine (0.6-1.2) mg/dL Glucose (65-100) mg/dL POC Glucose 479 H (70-105) mg/dL Calcium (8.4-10.2) mg/dL Triglycerides (2-149) mg/dL Arterial Blood Glucose 528 H 385 H (65-95) mg/dL Urine WBC (Auto) (0.0-6.0) /HPF Urine Creatinine (0.1-20.0) mg/dL 07/16/20 07/16/20 07/16/20 Range/Units 05:09 11:14 11:30 WBC 21.2 H (4.5-11.0) K/mm3 MCH 26 L (28-32) pg Plt Count 121 L (140-440) K/mm3 ABG pH (7.320-7.450) POC ABG pCO2 (32.0-48.0) mmHg POC ABG pO2 (83-108) mmHg ABG Oxyhemoglobin (94-98) ABG Potassium (3.40-4.50) mmol/L ABG Chloride (98-107) mmol/L ABG Glucose (65-95) mg/dL Carbon Dioxide (22-30) mmol/L BUN (7-17) mg/dL Creatinine (0.6-1.2) mg/dL Glucose (65-100) mg/dL POC Glucose 347 H (70-105) mg/dL Calcium (8.4-10.2) mg/dL Triglycerides (2-149) mg/dL Arterial Blood Glucose (65-95) mg/dL Urine WBC (Auto) 11.0 H (0.0-6.0) /HPF Urine Creatinine (0.1-20.0) mg/dL 07/16/20 07/16/20 07/16/20 Range/Units 11:30 12:01 Unknown WBC (4.5-11.0) K/mm3 MCH (28-32) pg Plt Count (140-440) K/mm3 ABG pH (7.320-7.450) POC ABG pCO2 (32.0-48.0) mmHg POC ABG pO2 (83-108) mmHg ABG Oxyhemoglobin (94-98) ABG Potassium (3.40-4.50) mmol/L ABG Chloride (98-107) mmol/L ABG Glucose (65-95) mg/dL Carbon Dioxide (22-30) mmol/L BUN (7-17) mg/dL Creatinine (0.6-1.2) mg/dL Glucose (65-100) mg/dL POC Glucose 206 H (70-105) mg/dL Calcium (8.4-10.2) mg/dL Triglycerides 215 H (2-149) mg/dL Arterial Blood Glucose (65-95) mg/dL Urine WBC (Auto) (0.0-6.0) /HPF Urine Creatinine 149.3 H (0.1-20.0) mg/dL
[2020-07-17] MEDS: MIDAZOLAM 100 MG in SODIUM CHLORIDE 0.9% 80 ML IV SCH ×2 (03:12→04:32)
[2020-07-17] MEDS: MINERAL OIL/PETROLATUM, WHITE OPHTH OINT 3.5 GM OU SCH ×3 (05:35→18:33)
[2020-07-17] MEDS: fentaNYL DRIP Premix 2,000 MCG/100 ML BAG IV SCH ×2 (05:35→14:30)
[2020-07-17] MEDS: HYDROCORTISONE SOD SUCC 100 MG/2 ML VIAL IV SCH ×3 (05:35→21:43)
[2020-07-17] MEDS: HEPARIN 5,000 UNIT/1 ML VIAL SUB-Q SCH ×2 (05:38→14:00)
[2020-07-17] MEDS: INSULIN LISPRO 100 UNIT/ML SUB-Q SCH ×3 (05:38→18:29)
[2020-07-17 06:53] LABS: Hematocrit 31.6 % (30.3-42.9); Hemoglobin 9.8 gm/dl (10.1-14.3); Mean Corpuscular HGB Conc 31 % (30-34); Mean Corpuscular Volume 82 fl (79-97); Red Blood Count 3.84 M/mm3 (3.65-5.03); Red Cell Distribution Width 15.8 % (13.2-15.2)
[2020-07-17 07:03] LABS: Platelet Count 74 K/mm3 (140-440)
[2020-07-17 07:41] LABS: Calcium 7.8 mg/dL (8.4-10.2)
[2020-07-17] MEDS: INSULIN NPH/REGULAR 70/30 INJ SUB-Q SCH ×2 (08:05→16:58)
[2020-07-17] MEDS: ASCORBIC ACID 500 MG TAB PO SCH (10:52)
[2020-07-17] MEDS: FAMOTIDINE 20 MG/2 ML INJ IV SCH (10:52)
[2020-07-17] MEDS: DOCUSATE SODIUM 100 MG/10 ML ORAL LIQD FEEDTUBE SCH ×2 (10:52→21:43)
[2020-07-17] MEDS: SENNOSIDES 8.6 MG TAB PO SCH ×2 (10:52→21:43)
[2020-07-17] MEDS: ZINC SULFATE 220 MG CAP PO SCH (10:52)
[2020-07-17] MEDS ORDERED: SODIUM CHLORIDE 0.9% 500 ML 500 ML IV ONE (11:13)
--- NOTE | 2020-07-17 12:47 | Progress Note ---
Assessment and Plan Sepsis -Presented with hypoxia, tachypnea and acute hypoxic respiratory failure, acute kidney injury, pneumonia on CXR and COVID-19 infection -07/06 blood cultures x2 no growth to date -s/p Antibiotic therapy -Infectious disease consulted, appreciate recommendations -Stress dose steroids stopped 07/16 COVID-19 infection -07/06 CXR shows diffuse hazy bilateral lung opacities concerning for viral infection, atypical pneumonia or pulmonary edema with no pleural effusions or pneumothorax -07/06 COVID-19 PCR positive -07/05 COVID-19 PCR at outside facility positive -Infectious disease and pulmonology consulted, appreciate recommendations -Contact/droplet isolation -Pulmonary hygiene -Supplemental oxygen as needed -S/p antibiotic therapy -07/07-07/12 s/p remdesivir therapy -S/p steroid therapy for COVID-19 infection -OOB 3 times daily -Prone to sleep as needed -Anticoagulation per protocol -Vitamin C, vitamin D and zinc -SPO2 monitoring Bilateral pneumonia -07/06 CXR shows diffuse hazy bilateral lung opacities concerning for viral infect ion, atypical pneumonia or pulmonary edema with no pleural effusions or pneumothorax -Secondary to COVID-19 infection -s/p Antibiotic therapy -Infectious disease consulted, appreciate recommendation -07/06 blood cultures x2 no growth to date Acute hypoxic respiratory failure -Room air SPO2 75% and placed on high flow nasal cannula -Pulmonary consulted, patient recommendations -Steroid therapy -Supplemental oxygen as needed -Pulmonary hygiene -SPO2 monitoring -07/13 patient was electively intubated Paroxysmal atrial fibrillation -Normal TSH this admission -Normal LVEF by echo -Started IV amiodarone and heparin 07/17/2020 -Maintaining sinus rhythm Bilateral pneumothorax -Evidenced on CXR -General surgery consulted for placement of bilateral chest tubes Acute kidney injury -12/2016 creatinine/BUN 0.9/15 -Presented with a creatinine/BUN 1.6/45 -Trend BMP -Consider nephrology consult if not improving -07/13 BUN/creatinine 44/0.9 -Secondary to vasomotor nephropathy -07/16 renal ultrasound pending -07/16 urine studies pending Leukocytosis -07/16 WBC 21.2 -Patient is on stress dose steroids -Trend CBC Thrombocytopenia -07/14 platelets 134 -Trend CBC Elevated troponin/SB -Presented with a troponin of 0.034 -07/06 troponin less than 0.10 -Cardiology consulted, appreciate recommendations -EKG as needed -No complaints of chest pain -Cardiology believes elevated troponin is in setting of acute kidney injury Elevated D-dimer -Admit D-dimer 1435 -07/06 nuclear medicine perfusion study shows low probability of pulmonary embolism -07/06 bilateral lower extremity Doppler ultrasound negative for DVT/SVT Hypertension -Titrate Antihypertensives as needed -Hydralazine as needed for SBP greater than 160 -Blood pressure monitoring per protocol Diabetes mellitus -07/06 hemoglobin A1c 11.8 -SSI -CC cardiac diet -Accu-Cheks AC at bedtime -Hypoglycemia protocol -07/06 70/30 initiated, titrate as needed DVT prophylaxis -Heparin subcu -GI prophylaxis -SCDs to bilateral lower extremities while in bed Hyperchloremia, resolved -07/09 chloride 111 which trended up to 120 -07/14 106.8 -Trend BMP CARMEN -07/16 urine lyte suggests prerenal cause for CARMEN -07/16 s/p 1L NS bolus -Trend BMP The high probability of a clinically significant, sudden or life threatening deterioration of the [CNC, CVS, respiratory, renal] system(s) required my full and direct attention, intervention and personal management. The aggregate critical care time was [35] minutes. This time is in addition to time spent performing reported procedures but includes the following: [x] Data Review and interpretation [x] Patient assessment and monitoring of vital signs [x] Documentation [x] Medication orders and management History Interval history: This is a 69-year-old Laotian female with limited Macedonian with hypertension, diabetes mellitus, hyperlipidemia who presented to the hospital on 07/06 via EMS with worsening subjective fevers, headache, body ache, dry cough, dyspnea on ex ertion, fatigue, headache and nausea since the last week end of May. Patient had a positive COVID-19 PCR on 07/05 as outside facility. Upon arrival to the emergency department patient was hypoxic on room air at 75% and tachypneic. Work-up in the emergency department with a CXR which showed bilateral pneumonia, lactic acidosis at 2.3, acute kidney injury at 1.6/45, elevated D- dimer, elevated troponin and slight hyponatremia 136. Patient received Rocephin, azithromycin and Decadron in the emergency department. Patient was admitted to the hospitalist service as a COVID-19 PUI, acute kidney injury, sepsis, lactic acidosis, and elevated D-dimer with consults to pulmonology and infectious disease. 07/06: COVID-19 PCR positive, azithromycin and Rocephin, Decadron and remdesivir therapy 07/07: Patient is on 100% FiO2 BiPAP therapy with SPO2 in the low 90s and high 80s, hypoxia and ABG, sinus bradycardia noted overnight. Repeat CXR shows persistent diffuse pulmonary process and pulmonary edema therefore she received 40 mg of Lasix x1 and a proBNP is pending per [facility] 07/08: Patient remains on antibiotic therapy, kidney function tests have not worsened, sinus bradycardia still persist and steroid dosing was increased today by [facility]. Patient's daughter was updated today 07/09: Overnight it was noted that the patient developed bilateral small pneumothorax on AM CXR. She still remains on 100% FiO2 via Bipap and her ABG shows hypoxia. Her steroid therapy was changed per [facility] and she received lasix x1 today. 07/10: Still remains hypoxic on BiPAP. Labs reviewed-sodium 152 today. Hold off on IV fluids for today due to ongoing respiratory difficulty. Trend sodium for now and if elevated tomorrow we will start on hypotonic solution. Possible intubation in the next 24 hours if no improvement in respiratory status. Critical care on board 07/11. Her oxygen sats remains stable. Plan to switch to HFNC to see if she tolerated. Started on D5W due to worsening hyponatremia and lethargy. BMP q6 hr ordered 07/12: Patient remains on BiPAP as she was unable to maintain her oxygenation on HFNC, remains hypernatremic and hyperchloremic although improving. 07/13: CXR from this a.m. showed increase in bilateral pneumothorax size, patient was electively intubated and placed on mechanical ventilation. Surgery was consulted for placement of bilateral chest tubes. Patient's hypernatremia, leuk ocytosis, hyperchloremia has improved. NG tube placed and nutrition consulted. She remains hyperglycemic and her insulin dose was adjusted. 07/14: Patient's leukocytosis, hyponatremia and hypochloremia has resolved today she has metabolic acidosis and hypoxia on ABG therefore her PEEP has been incr eased. Patient still remains sedated on propofol and fentanyl. Bilateral chest tubes are to wall suction with minimal to no drainage. No acute events reported overnight. 07/15: Patient received Ativan overnight for agitation and her propofol was increased therefore she was slightly hypotensive, at the time my examination patient remains on mechanical ventilation and sedated with propofol/fentanyl. Her PEEP has been increased to 16. IV nurse was consulted for PICC placement as CCM would like to have a trial run of paralytics with increased PEEP. Patient was hypoxic on ABG this a.m. and her BMP is still pending. Fay placed 07/16: Patient noted to be severe respiratory acidosis and received 2 amps of bicarb and was placed on a bicarbonate drip. CCM stopped paralytic and bolused with normal saline today. Repeat labs in AM. Patient Renal US and urine lytes pending. Patient was hypotensive overnight. Remains on MV with Bilateral CT to wall suction in place. 07/17: Renal function declining, follow nephrology recommendation, IV fluid for now, may need HD. Patient started on amiodarone and heparin drip for atrial fibrillation per cardiology. We will continue to follow, poor prognosis Subjective Date of service: 07/17/20 Interval history: Patient seen and examined maintaining Covid protocol Patient remains intubated Started on amiodarone and heparin drip for atrial fibrillation Vitals noted, discussed with RN at the bedside Objective - Exam Narrative Exam: Limited physical exam due to COVID-19 pandemic to minimize transmission of the disease and to preserve PPE. Vital reviewed and stable. GENERAL: Patient is intubated HEENT: Normocephalic. Atraumatic. NECK: Supple. CHEST/LUNGS: breathing with mechanical ventilation HEART/CARDIOVASCULAR: Heart rate stable on telemetry ABDOMEN: Visibly not distended SKIN: There is no rash NEURO: does not Follow command, intubated. MUSCULOSKELETAL: No joint effusion EXTRIMITY: No swelling, no cyanosis or clubbing. PSYCH: Unable to assess. - Constitutional Vitals: Vital Signs - 12hr 07/17/20 07/17/20 07/17/20 01:00 01:15 01:30 Temperature Pulse Rate 102 H 105 H 105 H Pulse Rate [ From Monitor] Respiratory 30 H 29 H 30 H Rate Blood Pressure 105/47 84/48 93/48 O2 Sat by Pulse 96 95 95 Oximetry 07/17/20 07/17/20 07/17/20 01:45 02:00 02:15 Temperature Pulse Rate 106 H 106 H 104 H Pulse Rate [ From Monitor] Respiratory 30 H 30 H 29 H Rate Blood Pressure 110/38 97/43 89/50 O2 Sat by Pulse 95 95 96 Oximetry 07/17/20 07/17/20 07/17/20 02:30 02:45 03:01 Temperature Pulse Rate 106 H 105 H 105 H Pulse Rate [ From Monitor] Respiratory 30 H 30 H 30 H Rate Blood Pressure 94/56 79/52 81/57 O2 Sat by Pulse 96 96 96 Oximetry 07/17/20 07/17/20 07/17/20 03:15 03:20 03:30 Temperature 97.9 F Pulse Rate 104 H 104 H Pulse Rate [ From Monitor] Respiratory 27 H 30 H Rate Blood Pressure 93/63 101/59 O2 Sat by Pulse 98 96 Oximetry 07/17/20 07/17/20 07/17/20 03:45 04:00 04:15 Temperature Pulse Rate 103 H 103 H 102 H Pulse Rate [ 108 H From Monitor] Respiratory 30 H 30 H 30 H Rate Blood Pressure 111/52 113/60 105/60 O2 Sat by Pulse 95 96 95 Oximetry 07/17/20 07/17/20 07/17/20 04:30 04:45 05:00 Temperature Pulse Rate 103 H 103 H 104 H Pulse Rate [ From Monitor] Respiratory 30 H 30 H 30 H Rate Blood Pressure 118/59 97/61 105/57 O2 Sat by Pulse 95 95 94 Oximetry 07/17/20 07/17/20 07/17/20 05:15 05:31 05:45 Temperature Pulse Rate 103 H 103 H 104 H Pulse Rate [ From Monitor] Respiratory 29 H 29 H 23 Rate Blood Pressure 95/62 95/51 116/64 O2 Sat by Pulse 94 93 93 Oximetry 07/17/20 07/17/20 07/17/20 06:00 06:15 06:30 Temperature Pulse Rate 102 H 102 H 102 H Pulse Rate [ From Monitor] Respiratory 30 H 30 H 31 H Rate Blood Pressure 95/56 95/53 94/60 O2 Sat by Pulse 95 96 95 Oximetry 07/17/20 07/17/20 07/17/20 06:45 07:00 07:15 Temperature 97.9 F Pulse Rate 103 H 102 H 103 H Pulse Rate [ From Monitor] Respiratory 27 H 29 H 30 H Rate Blood Pressure 99/61 89/52 82/55 O2 Sat by Pulse 95 95 95 Oximetry 07/17/20 07/17/20 07/17/20 07:30 07:45 08:00 Temperature Pulse Rate 104 H 103 H 103 H Pulse Rate [ 105 H From Monitor] Respiratory 30 H 30 H 18 Rate Blood Pressure 80/56 102/57 88/59 O2 Sat by Pulse 94 94 91 Oximetry 07/17/20 07/17/20 07/17/20 08:15 08:30 08:42 Temperature Pulse Rate 104 H 103 H 102 H Pulse Rate [ From Monitor] Respiratory 14 30 H Rate Blood Pressure 90/52 99/50 95/56 O2 Sat by Pulse 93 92 95 Oximetry 07/17/20 07/17/20 07/17/20 08:45 09:00 09:15 Temperature Pulse Rate 105 H 105 H 105 H Pulse Rate [ From Monitor] Respiratory 20 15 30 H Rate Blood Pressure 98/48 96/53 86/49 O2 Sat by Pulse 92 92 93 Oximetry 07/17/20 07/17/20 07/17/20 09:30 09:45 10:00 Temperature Pulse Rate 106 H 108 H 107 H Pulse Rate [ From Monitor] Respiratory 27 H 14 30 H Rate Blood Pressure 94/48 88/54 79/51 O2 Sat by Pulse 92 92 93 Oximetry 07/17/20 07/17/20 07/17/20 10:15 10:30 10:45 Temperature Pulse Rate 108 H 108 H 109 H Pulse Rate [ From Monitor] Respiratory 26 H 12 30 H Rate Blood Pressure 87/43 86/51 82/52 O2 Sat by Pulse 93 93 93 Oximetry 07/17/20 07/17/20 07/17/20 11:00 11:15 11:30 Temperature Pulse Rate 109 H 110 H 110 H Pulse Rate [ From Monitor] Respiratory 30 H 15 15 Rate Blood Pressure 88/48 93/52 90/51 O2 Sat by Pulse 93 93 92 Oximetry 07/17/20 07/17/20 11:45 12:00 Temperature 99.0 F Pulse Rate 109 H 109 H Pulse Rate [ 110 H From Monitor] Respiratory 30 H 30 H Rate Blood Pressure 88/57 103/58 O2 Sat by Pulse 92 93 Oximetry - Labs CBC & Chem 7: 07/19/20 01:00 07/19/20 04:55 Labs: Abnormal lab results 07/16/20 07/16/20 07/16/20 Range/Units 11:30 17:18 23:22 WBC (4.5-11.0) K/mm3 Hgb (10.1-14.3) gm/dl MCH (28-32) pg RDW (13.2-15.2) % Plt Count (140-440) K/mm3 ABG pH (7.320-7.450) POC ABG pCO2 (32.0-48.0) mmHg POC ABG pO2 (83-108) mmHg ABG Hemoglobin (12.0-17.5) ABG Oxyhemoglobin (94-98) ABG Glucose (65-95) mg/dL Sodium (137-145) mmol/L Chloride (98-107) mmol/L BUN (7-17) mg/dL Creatinine (0.6-1.2) mg/dL Glucose (65-100) mg/dL POC Glucose 199 H 368 H (70-105) mg/dL Calcium (8.4-10.2) mg/dL Arterial Blood Glucose (65-95) mg/dL Urine Creatinine 149.3 H (0.1-20.0) mg/dL 07/17/20 07/17/20 07/17/20 Range/Units 05:10 05:10 Unknown WBC 14.1 H (4.5-11.0) K/mm3 Hgb 9.8 L (10.1-14.3) gm/dl MCH 26 L (28-32) pg RDW 15.8 H (13.2-15.2) % Plt Count 74 L (140-440) K/mm3 ABG pH 7.209 L (7.320-7.450) POC ABG pCO2 62.7 H (32.0-48.0) mmHg POC ABG pO2 60.6 L (83-108) mmHg ABG Hemoglobin 10.7 L (12.0-17.5) ABG Oxyhemoglobin 84 L (94-98) ABG Glucose 450 H (65-95) mg/dL Sodium (137-145) mmol/L Chloride (98-107) mmol/L BUN (7-17) mg/dL Creatinine (0.6-1.2) mg/dL Glucose (65-100) mg/dL POC Glucose 333 H (70-105) mg/dL Calcium (8.4-10.2) mg/dL Arterial Blood Glucose 450 H (65-95) mg/dL Urine Creatinine (0.1-20.0) mg/dL 07/17/20 Range/Units Unknown WBC (4.5-11.0) K/mm3 Hgb (10.1-14.3) gm/dl MCH (28-32) pg RDW (13.2-15.2) % Plt Count (140-440) K/mm3 ABG pH (7.320-7.450) POC ABG pCO2 (32.0-48.0) mmHg POC ABG pO2 (83-108) mmHg ABG Hemoglobin (12.0-17.5) ABG Oxyhemoglobin (94-98) ABG Glucose (65-95) mg/dL Sodium 147 H D (137-145) mmol/L Chloride 107.8 H (98-107) mmol/L BUN 129 H (7-17) mg/dL Creatinine 2.2 H (0.6-1.2) mg/dL Glucose 471 H (65-100) mg/dL POC Glucose (70-105) mg/dL Calcium 7.8 L (8.4-10.2) mg/dL Arterial Blood Glucose (65-95) mg/dL Urine Creatinine (0.1-20.0) mg/dL HEART Score - HEART Score Troponin: Troponin T < 0.010 ng/mL (0.00-0.029) 07/07/20 00:22
--- NOTE | 2020-07-17 13:14 | Progress Note ---
Assessment and Plan - Patient Problems (1) Pneumothorax Current Visit: Yes Status: Acute (2) Pneumothorax on left Current Visit: Yes Status: Acute (3) Pneumothorax on right Current Visit: Yes Status: Acute (4) Acute renal failure Current Visit: Yes Status: Acute (5) Acute respiratory failure with hypoxia Current Visit: Yes Status: Acute (6) COVID-19 Current Visit: Yes Status: Acute (7) Hyperglycemia Current Visit: Yes Status: Acute (8) Pneumonia Current Visit: Yes Status: Acute Subjective Interval history: on vent sedated on bicarb drip, fentanyl and versed on PC pi 32 peep 16 60% episode of hypotension earlier responded to fluid bolus improved UO Objective Vital Signs - 12hr 07/17/20 07/17/20 07/17/20 01:15 01:30 01:45 Temperature Pulse Rate 105 H 105 H 106 H Pulse Rate [ From Monitor] Respiratory 29 H 30 H 30 H Rate Blood Pressure 84/48 93/48 110/38 O2 Sat by Pulse 95 95 95 Oximetry 07/17/20 07/17/20 07/17/20 02:00 02:15 02:30 Temperature Pulse Rate 106 H 104 H 106 H Pulse Rate [ From Monitor] Respiratory 30 H 29 H 30 H Rate Blood Pressure 97/43 89/50 94/56 O2 Sat by Pulse 95 96 96 Oximetry 07/17/20 07/17/20 07/17/20 02:45 03:01 03:15 Temperature Pulse Rate 105 H 105 H 104 H Pulse Rate [ From Monitor] Respiratory 30 H 30 H 27 H Rate Blood Pressure 79/52 81/57 93/63 O2 Sat by Pulse 96 96 98 Oximetry 07/17/20 07/17/20 07/17/20 03:20 03:30 03:45 Temperature 97.9 F Pulse Rate 104 H 103 H Pulse Rate [ From Monitor] Respiratory 30 H 30 H Rate Blood Pressure 101/59 111/52 O2 Sat by Pulse 96 95 Oximetry 07/17/20 07/17/20 07/17/20 04:00 04:15 04:30 Temperature Pulse Rate 103 H 102 H 103 H Pulse Rate [ 108 H From Monitor] Respiratory 30 H 30 H 30 H Rate Blood Pressure 113/60 105/60 118/59 O2 Sat by Pulse 96 95 95 Oximetry 07/17/20 07/17/20 07/17/20 04:45 05:00 05:15 Temperature Pulse Rate 103 H 104 H 103 H Pulse Rate [ From Monitor] Respiratory 30 H 30 H 29 H Rate Blood Pressure 97/61 105/57 95/62 O2 Sat by Pulse 95 94 94 Oximetry 07/17/20 07/17/20 07/17/20 05:31 05:45 06:00 Temperature Pulse Rate 103 H 104 H 102 H Pulse Rate [ From Monitor] Respiratory 29 H 23 30 H Rate Blood Pressure 95/51 116/64 95/56 O2 Sat by Pulse 93 93 95 Oximetry 07/17/20 07/17/20 07/17/20 06:15 06:30 06:45 Temperature Pulse Rate 102 H 102 H 103 H Pulse Rate [ From Monitor] Respiratory 30 H 31 H 27 H Rate Blood Pressure 95/53 94/60 99/61 O2 Sat by Pulse 96 95 95 Oximetry 07/17/20 07/17/20 07/17/20 07:00 07:15 07:30 Temperature 97.9 F Pulse Rate 102 H 103 H 104 H Pulse Rate [ From Monitor] Respiratory 29 H 30 H 30 H Rate Blood Pressure 89/52 82/55 80/56 O2 Sat by Pulse 95 95 94 Oximetry 07/17/20 07/17/20 07/17/20 07:45 08:00 08:15 Temperature Pulse Rate 103 H 103 H 104 H Pulse Rate [ 105 H From Monitor] Respiratory 30 H 18 14 Rate Blood Pressure 102/57 88/59 90/52 O2 Sat by Pulse 94 91 93 Oximetry 07/17/20 07/17/20 07/17/20 08:30 08:42 08:45 Temperature Pulse Rate 103 H 102 H 105 H Pulse Rate [ From Monitor] Respiratory 30 H 20 Rate Blood Pressure 99/50 95/56 98/48 O2 Sat by Pulse 92 95 92 Oximetry 07/17/20 07/17/20 07/17/20 09:00 09:15 09:30 Temperature Pulse Rate 105 H 105 H 106 H Pulse Rate [ From Monitor] Respiratory 15 30 H 27 H Rate Blood Pressure 96/53 86/49 94/48 O2 Sat by Pulse 92 93 92 Oximetry 07/17/20 07/17/20 07/17/20 09:45 10:00 10:15 Temperature Pulse Rate 108 H 107 H 108 H Pulse Rate [ From Monitor] Respiratory 14 30 H 26 H Rate Blood Pressure 88/54 79/51 87/43 O2 Sat by Pulse 92 93 93 Oximetry 07/17/20 07/17/20 07/17/20 10:30 10:45 11:00 Temperature Pulse Rate 108 H 109 H 109 H Pulse Rate [ From Monitor] Respiratory 12 30 H 30 H Rate Blood Pressure 86/51 82/52 88/48 O2 Sat by Pulse 93 93 93 Oximetry 07/17/20 07/17/20 07/17/20 11:15 11:30 11:45 Temperature Pulse Rate 110 H 110 H 109 H Pulse Rate [ From Monitor] Respiratory 15 15 30 H Rate Blood Pressure 93/52 90/51 88/57 O2 Sat by Pulse 93 92 92 Oximetry 07/17/20 07/17/20 07/17/20 12:00 12:15 12:30 Temperature 99.0 F Pulse Rate 109 H 110 H 111 H Pulse Rate [ 110 H From Monitor] Respiratory 30 H 30 H 30 H Rate Blood Pressure 103/58 101/55 94/56 O2 Sat by Pulse 93 93 92 Oximetry 07/17/20 12:45 Temperature Pulse Rate 111 H Pulse Rate [ From Monitor] Respiratory 29 H Rate Blood Pressure 92/55 O2 Sat by Pulse 93 Oximetry Constitutional: no acute distress, alert, other (onvent orally intubated) Eyes: non-icteric Neck: supple Ascultation: Bilateral: diminished breath sounds Cardiovascular: regular rate and rhythm Gastrointestinal: normoactive bowel sounds, soft, non-tender Neurologic: other (on vent) CBC and BMP: 07/17/20 Unknown 07/17/20 Unknown ABG, PT/INR, D-dimer: ABG ABG pH 7.209 (7.320-7.450) L 07/17/20 05:10 POC ABG pCO2 62.7 mmHg (32.0-48.0) H 07/17/20 05:10 ABG pCO2 32.9 mm Hg 07/13/20 15:50 POC ABG pO2 60.6 mmHg (83-108) L 07/17/20 05:10 ABG pO2 73.7 mm Hg (80.0-90.0) L 07/13/20 15:50 POC ABG HCO3 24.5 07/17/20 05:10 ABG O2 Saturation 94.5 % (95.0-99.0) L 07/13/20 15:50 PT/INR, D-dimer PT 14.7 Sec. (12.2-14.9) 07/06/20 08:50 INR 1.15 (0.87-1.13) H 07/06/20 08:50 D-Dimer 1786.87 ng/mlDDU (0-234) H 07/10/20 05:25 Abnormal lab findings: Abnormal Labs 07/06/20 07/06/20 07/06/20 08:50 08:50 08:50 WBC Hgb MCV 78 L MCH 26 L RDW Plt Count Lymph % (Auto) Lymph # (Auto) Seg Neutrophils % Seg Neuts % (Manual) 80.0 H Lymphocytes % (Manual) 10.0 L Nucleated RBC % 4.0 H Seg Neutrophils # Seg Neutrophils # Man Lymphocytes # (Manual) 0.9 L INR 1.15 H D-Dimer 1435.13 H ABG pH POC ABG pCO2 POC ABG pO2 ABG pO2 ABG O2 Saturation ABG Base Excess ABG Hemoglobin ABG Oxyhemoglobin ABG Potassium ABG Chloride ABG Glucose Oxyhemoglobin Carboxyhemoglobin Sodium 136 L Chloride Carbon Dioxide BUN 45 H Creatinine 1.6 H Glucose 385 H POC Glucose Hemoglobin A1c Lactic Acid Calcium Ferritin Alkaline Phosphatase 130 H Lactate Dehydrogenase Troponin T 0.034 H C-Reactive Protein Albumin 3.2 L Triglycerides Arterial Blood Glucose Urine WBC (Auto) Urine Creatinine Coronavirus (PCR) 07/06/20 07/06/20 07/06/20 08:50 08:50 08:50 WBC Hgb MCV MCH RDW Plt Count Lymph % (Auto) Lymph # (Auto) Seg Neutrophils % Seg Neuts % (Manual) Lymphocytes % (Manual) Nucleated RBC % Seg Neutrophils # Seg Neutrophils # Man Lymphocytes # (Manual) INR D-Dimer ABG pH POC ABG pCO2 POC ABG pO2 ABG pO2 ABG O2 Saturation ABG Base Excess ABG Hemoglobin ABG Oxyhemoglobin ABG Potassium ABG Chloride ABG Glucose Oxyhemoglobin Carboxyhemoglobin Sodium Chloride Carbon Dioxide BUN Creatinine Glucose 385 H POC Glucose Hemoglobin A1c Lactic Acid 2.30 H* Calcium Ferritin 1158.0 H Alkaline Phosphatase Lactate Dehydrogenase 471 H Troponin T C-Reactive Protein 10.40 H Albumin Triglycerides Arterial Blood Glucose Urine WBC (Auto) Urine Creatinine Coronavirus (PCR) 07/06/20 07/06/20 07/06/20 09:26 15:44 15:44 WBC Hgb MCV MCH RDW Plt Count Lymph % (Auto) Lymph # (Auto) Seg Neutrophils % Seg Neuts % (Manual) Lymphocytes % (Manual) Nucleated RBC % Seg Neutrophils # Seg Neutrophils # Man Lymphocytes # (Manual) INR D-Dimer ABG pH POC ABG pCO2 POC ABG pO2 ABG pO2 ABG O2 Saturation ABG Base Excess ABG Hemoglobin ABG Oxyhemoglobin ABG Potassium ABG Chloride ABG Glucose Oxyhemoglobin Carboxyhemoglobin Sodium Chloride Carbon Dioxide BUN Creatinine Glucose POC Glucose Hemoglobin A1c 11.8 H Lactic Acid 2.40 H* Calcium Ferritin Alkaline Phosphatase Lactate Dehydrogenase Troponin T C-Reactive Protein Albumin Triglycerides Arterial Blood Glucose Urine WBC (Auto) Urine Creatinine Coronavirus (PCR) Positive A 07/06/20 07/06/20 07/06/20 15:44 17:40 20:35 WBC Hgb MCV MCH RDW Plt Count Lymph % (Auto) Lymph # (Auto) Seg Neutrophils % Seg Neuts % (Manual) Lymphocytes % (Manual) Nucleated RBC % Seg Neutrophils # Seg Neutrophils # Man Lymphocytes # (Manual) INR D-Dimer ABG pH 7.455 H POC ABG pCO2 30.9 L POC ABG pO2 50.0 L ABG pO2 ABG O2 Saturation ABG Base Excess ABG Hemoglobin 11.1 L ABG Oxyhemoglobin 80.6 L ABG Potassium ABG Chloride ABG Glucose 357 H Oxyhemoglobin Carboxyhemoglobin 0.3 L Sodium Chloride Carbon Dioxide BUN Creatinine Glucose POC Glucose 324 H Hemoglobin A1c Lactic Acid Calcium Ferritin Alkaline Phosphatase Lactate Dehydrogenase 683 H Troponin T C-Reactive Protein Albumin Triglycerides Arterial Blood Glucose 357 H Urine WBC (Auto) Urine Creatinine Coronavirus (PCR) 07/06/20 07/06/20 07/07/20 21:49 23:52 02:19 WBC Hgb MCV MCH RDW Plt Count Lymph % (Auto) Lymph # (Auto) Seg Neutrophils % Seg Neuts % (Manual) Lymphocytes % (Manual) Nucleated RBC % Seg Neutrophils # Seg Neutrophils # Man Lymphocytes # (Manual) INR D-Dimer ABG pH 7.455 H POC ABG pCO2 31.9 L POC ABG pO2 50.7 L 62.0 L ABG pO2 ABG O2 Saturation ABG Base Excess ABG Hemoglobin 10.8 L 10.8 L ABG Oxyhemoglobin 80.2 L 88.3 L ABG Potassium ABG Chloride ABG Glucose 358 H 330 H Oxyhemoglobin Carboxyhemoglobin 0.2 L 0.2 L Sodium Chloride Carbon Dioxide BUN Creatinine Glucose POC Glucose 336 H Hemoglobin A1c Lactic Acid Calcium Ferritin Alkaline Phosphatase Lactate Dehydrogenase Troponin T C-Reactive Protein Albumin Triglycerides Arterial Blood Glucose 358 H 330 H Urine WBC (Auto) Urine Creatinine Coronavirus (PCR) 07/07/20 07/07/20 07/07/20 02:42 02:42 07:54 WBC Hgb MCV MCH 26 L RDW Plt Count Lymph % (Auto) Lymph # (Auto) Seg Neutrophils % Seg Neuts % (Manual) 85.0 H Lymphocytes % (Manual) 6.0 L Nucleated RBC % Seg Neutrophils # Seg Neutrophils # Man 7.9 H Lymphocytes # (Manual) 0.6 L INR D-Dimer ABG pH POC ABG pCO2 POC ABG pO2 ABG pO2 ABG O2 Saturation ABG Base Excess ABG Hemoglobin ABG Oxyhemoglobin ABG Potassium ABG Chloride ABG Glucose Oxyhemoglobin Carboxyhemoglobin Sodium Chloride Carbon Dioxide BUN 47 H Creatinine 1.3 H Glucose 336 H POC Glucose 289 H Hemoglobin A1c Lactic Acid Calcium Ferritin Alkaline Phosphatase Lactate Dehydrogenase Troponin T C-Reactive Protein Albumin Triglycerides Arterial Blood Glucose Urine WBC (Auto) Urine Creatinine Coronavirus (PCR) 07/07/20 07/07/20 07/07/20 11:07 15:40 23:27 WBC Hgb MCV MCH RDW Plt Count Lymph % (Auto) Lymph # (Auto) Seg Neutrophils % Seg Neuts % (Manual) Lymphocytes % (Manual) Nucleated RBC % Seg Neutrophils # Seg Neutrophils # Man Lymphocytes # (Manual) INR D-Dimer ABG pH POC ABG pCO2 POC ABG pO2 ABG pO2 ABG O2 Saturation ABG Base Excess ABG Hemoglobin ABG Oxyhemoglobin ABG Potassium ABG Chloride ABG Glucose Oxyhemoglobin Carboxyhemoglobin Sodium Chloride Carbon Dioxide BUN Creatinine Glucose POC Glucose 322 H 346 H 274 H Hemoglobin A1c Lactic Acid Calcium Ferritin Alkaline Phosphatase Lactate Dehydrogenase Troponin T C-Reactive Protein Albumin Triglycerides Arterial Blood Glucose Urine WBC (Auto) Urine Creatinine Coronavirus (PCR) 07/08/20 07/08/20 07/08/20 02:39 05:07 05:07 WBC Hgb MCV MCH RDW Plt Count Lymph % (Auto) Lymph # (Auto) Seg Neutrophils % Seg Neuts % (Manual) Lymphocytes % (Manual) Nucleated RBC % Seg Neutrophils # Seg Neutrophils # Man Lymphocytes # (Manual) INR D-Dimer 2542.57 H ABG pH 7.487 H POC ABG pCO2 POC ABG pO2 52.5 L ABG pO2 ABG O2 Saturation ABG Base Excess ABG Hemoglobin 11.8 L ABG Oxyhemoglobin ABG Potassium ABG Chloride ABG Glucose 336 H Oxyhemoglobin Carboxyhemoglobin Sodium Chloride Carbon Dioxide BUN 51 H Creatinine Glucose 326 H POC Glucose Hemoglobin A1c Lactic Acid Calcium Ferritin Alkaline Phosphatase Lactate Dehydrogenase Troponin T C-Reactive Protein 4.30 H Albumin 3.2 L Triglycerides Arterial Blood Glucose 336 H Urine WBC (Auto) Urine Creatinine Coronavirus (PCR) 07/08/20 07/08/20 07/08/20 05:07 05:07 05:21 WBC Hgb MCV MCH 25 L RDW Plt Count Lymph % (Auto) 7.9 L Lymph # (Auto) 0.6 L Seg Neutrophils % 85.6 H Seg Neuts % (Manual) Lymphocytes % (Manual) Nucleated RBC % Seg Neutrophils # Seg Neutrophils # Man Lymphocytes # (Manual) INR D-Dimer ABG pH POC ABG pCO2 POC ABG pO2 ABG pO2 ABG O2 Saturation ABG Base Excess ABG Hemoglobin ABG Oxyhemoglobin ABG Potassium ABG Chloride ABG Glucose Oxyhemoglobin Carboxyhemoglobin Sodium Chloride Carbon Dioxide BUN Creatinine Glucose POC Glucose 293 H Hemoglobin A1c Lactic Acid Calcium Ferritin 975.6 H Alkaline Phosphatase Lactate Dehydrogenase Troponin T C-Reactive Protein Albumin Triglycerides Arterial Blood Glucose Urine WBC (Auto) Urine Creatinine Coronavirus (PCR) 07/08/20 07/08/20 07/08/20 08:59 11:39 17:57 WBC Hgb MCV MCH RDW Plt Count Lymph % (Auto) Lymph # (Auto) Seg Neutrophils % Seg Neuts % (Manual) Lymphocytes % (Manual) Nucleated RBC % Seg Neutrophils # Seg Neutrophils # Man Lymphocytes # (Manual) INR D-Dimer ABG pH POC ABG pCO2 POC ABG pO2 ABG pO2 ABG O2 Saturation ABG Base Excess ABG Hemoglobin ABG Oxyhemoglobin ABG Potassium ABG Chloride ABG Glucose Oxyhemoglobin Carboxyhemoglobin Sodium Chloride Carbon Dioxide BUN Creatinine Glucose POC Glucose 270 H 285 H 221 H Hemoglobin A1c Lactic Acid Calcium Ferritin Alkaline Phosphatase Lactate Dehydrogenase Troponin T C-Reactive Protein Albumin Triglycerides Arterial Blood Glucose Urine WBC (Auto) Urine Creatinine Coronavirus (PCR) 07/08/20 07/08/20 07/09/20 21:26 23:29 05:29 WBC Hgb MCV MCH RDW Plt Count Lymph % (Auto) Lymph # (Auto) Seg Neutrophils % Seg Neuts % (Manual) Lymphocytes % (Manual) Nucleated RBC % Seg Neutrophils # Seg Neutrophils # Man Lymphocytes # (Manual) INR D-Dimer ABG pH POC ABG pCO2 POC ABG pO2 ABG pO2 ABG O2 Saturation ABG Base Excess ABG Hemoglobin ABG Oxyhemoglobin ABG Potassium ABG Chloride ABG Glucose Oxyhemoglobin Carboxyhemoglobin Sodium Chloride Carbon Dioxide BUN Creatinine Glucose POC Glucose 232 H 231 H 196 H Hemoglobin A1c Lactic Acid Calcium Ferritin Alkaline Phosphatase Lactate Dehydrogenase Troponin T C-Reactive Protein Albumin Triglycerides Arterial Blood Glucose Urine WBC (Auto) Urine Creatinine Coronavirus (PCR) 07/09/20 07/09/20 07/09/20 06:51 06:51 12:10 WBC Hgb MCV MCH 26 L RDW Plt Count Lymph % (Auto) 4.3 L Lymph # (Auto) 0.4 L Seg Neutrophils % Seg Neuts % (Manual) Lymphocytes % (Manual) 1.0 L Nucleated RBC % Seg Neutrophils # 9.1 H Seg Neutrophils # Man 9.8 H Lymphocytes # (Manual) 0.1 L INR D-Dimer ABG pH POC ABG pCO2 POC ABG pO2 ABG pO2 ABG O2 Saturation ABG Base Excess ABG Hemoglobin ABG Oxyhemoglobin ABG Potassium ABG Chloride ABG Glucose Oxyhemoglobin Carboxyhemoglobin Sodium 147 H Chloride 111.9 H Carbon Dioxide BUN 52 H Creatinine Glucose 207 H POC Glucose 176 H Hemoglobin A1c Lactic Acid Calcium Ferritin Alkaline Phosphatase Lactate Dehydrogenase Troponin T C-Reactive Protein Albumin 3.2 L Triglycerides Arterial Blood Glucose Urine WBC (Auto) Urine Creatinine Coronavirus (PCR) 07/09/20 07/09/20 07/10/20 17:49 23:36 05:17 WBC Hgb MCV MCH RDW Plt Count Lymph % (Auto) Lymph # (Auto) Seg Neutrophils % Seg Neuts % (Manual) Lymphocytes % (Manual) Nucleated RBC % Seg Neutrophils # Seg Neutrophils # Man Lymphocytes # (Manual) INR D-Dimer ABG pH POC ABG pCO2 POC ABG pO2 ABG pO2 ABG O2 Saturation ABG Base Excess ABG Hemoglobin ABG Oxyhemoglobin ABG Potassium ABG Chloride ABG Glucose Oxyhemoglobin Carboxyhemoglobin Sodium Chloride Carbon Dioxide BUN Creatinine Glucose POC Glucose 196 H 154 H 178 H Hemoglobin A1c Lactic Acid Calcium Ferritin Alkaline Phosphatase Lactate Dehydrogenase Troponin T C-Reactive Protein Albumin Triglycerides Arterial Blood Glucose Urine WBC (Auto) Urine Creatinine Coronavirus (PCR) 07/10/20 07/10/20 07/10/20 05:25 05:25 05:25 WBC Hgb MCV MCH RDW Plt Count Lymph % (Auto) Lymph # (Auto) Seg Neutrophils % Seg Neuts % (Manual) Lymphocytes % (Manual) Nucleated RBC % Seg Neutrophils # Seg Neutrophils # Man Lymphocytes # (Manual) INR D-Dimer 1786.87 H ABG pH POC ABG pCO2 POC ABG pO2 ABG pO2 ABG O2 Saturation ABG Base Excess ABG Hemoglobin ABG Oxyhemoglobin ABG Potassium ABG Chloride ABG Glucose Oxyhemoglobin Carboxyhemoglobin Sodium 152 H Chloride 112.8 H Carbon Dioxide BUN 60 H Creatinine Glucose 204 H POC Glucose Hemoglobin A1c Lactic Acid Calcium Ferritin 920.8 H Alkaline Phosphatase Lactate Dehydrogenase Troponin T C-Reactive Protein 2.80 H Albumin 3.3 L Triglycerides Arterial Blood Glucose Urine WBC (Auto) Urine Creatinine Coronavirus (PCR) 07/10/20 07/10/20 07/10/20 05:25 12:39 17:56 WBC Hgb MCV MCH 27 L RDW Plt Count Lymph % (Auto) Lymph # (Auto) Seg Neutrophils % Seg Neuts % (Manual) 92.0 H Lymphocytes % (Manual) 3.0 L Nucleated RBC % Seg Neutrophils # Seg Neutrophils # Man 9.5 H Lymphocytes # (Manual) 0.3 L INR D-Dimer ABG pH POC ABG pCO2 POC ABG pO2 ABG pO2 ABG O2 Saturation ABG Base Excess ABG Hemoglobin ABG Oxyhemoglobin ABG Potassium ABG Chloride ABG Glucose Oxyhemoglobin Carboxyhemoglobin Sodium Chloride Carbon Dioxide BUN Creatinine Glucose POC Glucose 174 H 177 H Hemoglobin A1c Lactic Acid Calcium Ferritin Alkaline Phosphatase Lactate Dehydrogenase Troponin T C-Reactive Protein Albumin Triglycerides Arterial Blood Glucose Urine WBC (Auto) Urine Creatinine Coronavirus (PCR) 07/10/20 07/11/20 07/11/20 23:13 05:20 06:08 WBC Hgb MCV MCH RDW Plt Count Lymph % (Auto) Lymph # (Auto) Seg Neutrophils % Seg Neuts % (Manual) Lymphocytes % (Manual) Nucleated RBC % Seg Neutrophils # Seg Neutrophils # Man Lymphocytes # (Manual) INR D-Dimer ABG pH POC ABG pCO2 POC ABG pO2 ABG pO2 ABG O2 Saturation ABG Base Excess ABG Hemoglobin ABG Oxyhemoglobin ABG Potassium ABG Chloride ABG Glucose Oxyhemoglobin Carboxyhemoglobin Sodium 159 H Chloride 120.9 H Carbon Dioxide BUN 57 H Creatinine Glucose 162 H POC Glucose 107 H 129 H Hemoglobin A1c Lactic Acid Calcium Ferritin Alkaline Phosphatase Lactate Dehydrogenase Troponin T C-Reactive Protein Albumin 3.0 L Triglycerides Arterial Blood Glucose Urine WBC (Auto) Urine Creatinine Coronavirus (PCR) 07/11/20 07/11/20 07/11/20 12:08 17:21 23:20 WBC Hgb MCV MCH RDW Plt Count Lymph % (Auto) Lymph # (Auto) Seg Neutrophils % Seg Neuts % (Manual) Lymphocytes % (Manual) Nucleated RBC % Seg Neutrophils # Seg Neutrophils # Man Lymphocytes # (Manual) INR D-Dimer ABG pH POC ABG pCO2 POC ABG pO2 ABG pO2 ABG O2 Saturation ABG Base Excess ABG Hemoglobin ABG Oxyhemoglobin ABG Potassium ABG Chloride ABG Glucose Oxyhemoglobin Carboxyhemoglobin Sodium Chloride Carbon Dioxide BUN Creatinine Glucose POC Glucose 238 H 240 H 176 H Hemoglobin A1c Lactic Acid Calcium Ferritin Alkaline Phosphatase Lactate Dehydrogenase Troponin T C-Reactive Protein Albumin Triglycerides Arterial Blood Glucose Urine WBC (Auto) Urine Creatinine Coronavirus (PCR) 07/12/20 07/12/20 07/12/20 01:55 05:16 05:18 WBC 12.6 H Hgb MCV MCH 26 L RDW Plt Count Lymph % (Auto) Lymph # (Auto) Seg Neutrophils % Seg Neuts % (Manual) 93.0 H Lymphocytes % (Manual) 4.0 L Nucleated RBC % Seg Neutrophils # Seg Neutrophils # Man 11.7 H Lymphocytes # (Manual) 0.5 L INR D-Dimer ABG pH POC ABG pCO2 POC ABG pO2 ABG pO2 ABG O2 Saturation ABG Base Excess ABG Hemoglobin ABG Oxyhemoglobin ABG Potassium ABG Chloride ABG Glucose Oxyhemoglobin Carboxyhemoglobin Sodium 151 H D Chloride 115.5 H Carbon Dioxide BUN 52 H Creatinine Glucose 250 H POC Glucose 202 H Hemoglobin A1c Lactic Acid Calcium Ferritin Alkaline Phosphatase Lactate Dehydrogenase Troponin T C-Reactive Protein Albumin Triglycerides Arterial Blood Glucose Urine WBC (Auto) Urine Creatinine Coronavirus (PCR) 07/12/20 07/12/20 07/12/20 05:18 11:50 17:25 WBC Hgb MCV MCH RDW Plt Count Lymph % (Auto) Lymph # (Auto) Seg Neutrophils % Seg Neuts % (Manual) Lymphocytes % (Manual) Nucleated RBC % Seg Neutrophils # Seg Neutrophils # Man Lymphocytes # (Manual) INR D-Dimer ABG pH POC ABG pCO2 POC ABG pO2 ABG pO2 ABG O2 Saturation ABG Base Excess ABG Hemoglobin ABG Oxyhemoglobin ABG Potassium ABG Chloride ABG Glucose Oxyhemoglobin Carboxyhemoglobin Sodium 152 H Chloride 113.7 H Carbon Dioxide BUN 50 H Creatinine Glucose 232 H POC Glucose 218 H 130 H Hemoglobin A1c Lactic Acid Calcium Ferritin Alkaline Phosphatase Lactate Dehydrogenase Troponin T C-Reactive Protein Albumin Triglycerides Arterial Blood Glucose Urine WBC (Auto) Urine Creatinine Coronavirus (PCR) 07/12/20 07/13/20 07/13/20 23:17 04:39 04:39 WBC Hgb MCV MCH 26 L RDW Plt Count Lymph % (Auto) Lymph # (Auto) Seg Neutrophils % Seg Neuts % (Manual) Lymphocytes % (Manual) Nucleated RBC % Seg Neutrophils # Seg Neutrophils # Man Lymphocytes # (Manual) INR D-Dimer ABG pH POC ABG pCO2 POC ABG pO2 ABG pO2 ABG O2 Saturation ABG Base Excess ABG Hemoglobin ABG Oxyhemoglobin ABG Potassium ABG Chloride ABG Glucose Oxyhemoglobin Carboxyhemoglobin Sodium Chloride 109.4 H Carbon Dioxide BUN 44 H Creatinine Glucose 281 H POC Glucose 161 H Hemoglobin A1c Lactic Acid Calcium Ferritin Alkaline Phosphatase Lactate Dehydrogenase Troponin T C-Reactive Protein Albumin Triglycerides Arterial Blood Glucose Urine WBC (Auto) Urine Creatinine Coronavirus (PCR) 07/13/20 07/13/20 07/13/20 05:16 11:56 15:50 WBC Hgb MCV MCH RDW Plt Count Lymph % (Auto) Lymph # (Auto) Seg Neutrophils % Seg Neuts % (Manual) Lymphocytes % (Manual) Nucleated RBC % Seg Neutrophils # Seg Neutrophils # Man Lymphocytes # (Manual) INR D-Dimer ABG pH POC ABG pCO2 POC ABG pO2 ABG pO2 73.7 L ABG O2 Saturation 94.5 L ABG Base Excess -2.9 L ABG Hemoglobin 9.6 L ABG Oxyhemoglobin ABG Potassium ABG Chloride ABG Glucose Oxyhemoglobin 92.8 L Carboxyhemoglobin Sodium Chloride Carbon Dioxide BUN Creatinine Glucose POC Glucose 210 H 229 H Hemoglobin A1c Lactic Acid Calcium Ferritin Alkaline Phosphatase Lactate Dehydrogenase Troponin T C-Reactive Protein Albumin Triglycerides Arterial Blood Glucose Urine WBC (Auto) Urine Creatinine Coronavirus (PCR) 07/13/20 07/13/20 07/14/20 17:35 23:29 03:57 WBC Hgb MCV MCH RDW Plt Count Lymph % (Auto) Lymph # (Auto) Seg Neutrophils % Seg Neuts % (Manual) Lymphocytes % (Manual) Nucleated RBC % Seg Neutrophils # Seg Neutrophils # Man Lymphocytes # (Manual) INR D-Dimer ABG pH POC ABG pCO2 POC ABG pO2 63.2 L ABG pO2 ABG O2 Saturation ABG Base Excess ABG Hemoglobin 11.8 L ABG Oxyhemoglobin ABG Potassium ABG Chloride ABG Glucose 148 H Oxyhemoglobin Carboxyhemoglobin Sodium Chloride Carbon Dioxide BUN Creatinine Glucose POC Glucose 277 H 173 H Hemoglobin A1c Lactic Acid Calcium Ferritin Alkaline Phosphatase Lactate Dehydrogenase Troponin T C-Reactive Protein Albumin Triglycerides Arterial Blood Glucose 148 H Urine WBC (Auto) Urine Creatinine Coronavirus (PCR) 07/14/20 07/14/20 07/14/20 04:31 04:31 05:11 WBC Hgb MCV MCH 26 L RDW Plt Count 134 L Lymph % (Auto) Lymph # (Auto) Seg Neutrophils % Seg Neuts % (Manual) Lymphocytes % (Manual) Nucleated RBC % Seg Neutrophils # Seg Neutrophils # Man Lymphocytes # (Manual) INR D-Dimer ABG pH POC ABG pCO2 POC ABG pO2 ABG pO2 ABG O2 Saturation ABG Base Excess ABG Hemoglobin ABG Oxyhemoglobin ABG Potassium ABG Chloride ABG Glucose Oxyhemoglobin Carboxyhemoglobin Sodium Chloride Carbon Dioxide 21 L BUN 66 H Creatinine Glucose 139 H POC Glucose 126 H Hemoglobin A1c Lactic Acid Calcium Ferritin Alkaline Phosphatase Lactate Dehydrogenase Troponin T C-Reactive Protein Albumin Triglycerides Arterial Blood Glucose Urine WBC (Auto) Urine Creatinine Coronavirus (PCR) 07/14/20 07/14/20 07/14/20 11:54 17:44 21:25 WBC Hgb MCV MCH RDW Plt Count Lymph % (Auto) Lymph # (Auto) Seg Neutrophils % Seg Neuts % (Manual) Lymphocytes % (Manual) Nucleated RBC % Seg Neutrophils # Seg Neutrophils # Man Lymphocytes # (Manual) INR D-Dimer ABG pH POC ABG pCO2 POC ABG pO2 64.8 L ABG pO2 ABG O2 Saturation ABG Base Excess ABG Hemoglobin 11.9 L ABG Oxyhemoglobin 86.8 L ABG Potassium ABG Chloride ABG Glucose 296 H Oxyhemoglobin Carboxyhemoglobin Sodium Chloride Carbon Dioxide BUN Creatinine Glucose POC Glucose 181 H 274 H Hemoglobin A1c Lactic Acid Calcium Ferritin Alkaline Phosphatase Lactate Dehydrogenase Troponin T C-Reactive Protein Albumin Triglycerides Arterial Blood Glucose 296 H Urine WBC (Auto) Urine Creatinine Coronavirus (PCR) 07/14/20 07/15/20 07/15/20 23:20 03:09 05:32 WBC Hgb MCV MCH RDW Plt Count Lymph % (Auto) Lymph # (Auto) Seg Neutrophils % Seg Neuts % (Manual) Lymphocytes % (Manual) Nucleated RBC % Seg Neutrophils # Seg Neutrophils # Man Lymphocytes # (Manual) INR D-Dimer ABG pH 7.280 L POC ABG pCO2 POC ABG pO2 57.7 L ABG pO2 ABG O2 Saturation ABG Base Excess ABG Hemoglobin 11.8 L ABG Oxyhemoglobin 79.3 L ABG Potassium 4.6 H ABG Chloride ABG Glucose 340 H Oxyhemoglobin Carboxyhemoglobin Sodium Chloride Carbon Dioxide BUN Creatinine Glucose POC Glucose 271 H 339 H Hemoglobin A1c Lactic Acid Calcium Ferritin Alkaline Phosphatase Lactate Dehydrogenase Troponin T C-Reactive Protein Albumin Triglycerides Arterial Blood Glucose 340 H Urine WBC (Auto) Urine Creatinine Coronavirus (PCR) 07/15/20 07/15/20 07/15/20 11:39 17:41 20:12 WBC Hgb MCV MCH RDW Plt Count Lymph % (Auto) Lymph # (Auto) Seg Neutrophils % Seg Neuts % (Manual) Lymphocytes % (Manual) Nucleated RBC % Seg Neutrophils # Seg Neutrophils # Man Lymphocytes # (Manual) INR D-Dimer ABG pH 7.091 L POC ABG pCO2 62.2 H POC ABG pO2 ABG pO2 ABG O2 Saturation ABG Base Excess ABG Hemoglobin ABG Oxyhemoglobin 89.8 L ABG Potassium ABG Chloride ABG Glucose 493 H Oxyhemoglobin Carboxyhemoglobin Sodium Chloride Carbon Dioxide BUN Creatinine Glucose POC Glucose 388 H 414 H Hemoglobin A1c Lactic Acid Calcium Ferritin Alkaline Phosphatase Lactate Dehydrogenase Troponin T C-Reactive Protein Albumin Triglycerides Arterial Blood Glucose 493 H Urine WBC (Auto) Urine Creatinine Coronavirus (PCR) 07/15/20 07/15/20 07/15/20 22:14 22:14 23:48 WBC Hgb MCV MCH RDW Plt Count Lymph % (Auto) Lymph # (Auto) Seg Neutrophils % Seg Neuts % (Manual) Lymphocytes % (Manual) Nucleated RBC % Seg Neutrophils # Seg Neutrophils # Man Lymphocytes # (Manual) INR D-Dimer ABG pH 7.132 L POC ABG pCO2 55.9 H POC ABG pO2 79.1 L ABG pO2 ABG O2 Saturation ABG Base Excess ABG Hemoglobin ABG Oxyhemoglobin 89.8 L ABG Potassium 4.6 H ABG Chloride ABG Glucose 528 H Oxyhemoglobin Carboxyhemoglobin Sodium Chloride Carbon Dioxide 18 L BUN 107 H Creatinine 1.8 H Glucose 523 H* POC Glucose 479 H Hemoglobin A1c Lactic Acid Calcium 8.0 L Ferritin Alkaline Phosphatase Lactate Dehydrogenase Troponin T C-Reactive Protein Albumin Triglycerides Arterial Blood Glucose 528 H Urine WBC (Auto) Urine Creatinine Coronavirus (PCR) 07/16/20 07/16/20 07/16/20 04:00 05:09 11:14 WBC 21.2 H Hgb MCV MCH 26 L RDW Plt Count 121 L Lymph % (Auto) Lymph # (Auto) Seg Neutrophils % Seg Neuts % (Manual) Lymphocytes % (Manual) Nucleated RBC % Seg Neutrophils # Seg Neutrophils # Man Lymphocytes # (Manual) INR D-Dimer ABG pH 7.096 L POC ABG pCO2 68.5 H POC ABG pO2 79.7 L ABG pO2 ABG O2 Saturation ABG Base Excess ABG Hemoglobin ABG Oxyhemoglobin ABG Potassium 5.0 H ABG Chloride 108.0 H ABG Glucose 385 H Oxyhemoglobin Carboxyhemoglobin Sodium Chloride Carbon Dioxide BUN Creatinine Glucose POC Glucose 347 H Hemoglobin A1c Lactic Acid Calcium Ferritin Alkaline Phosphatase Lactate Dehydrogenase Troponin T C-Reactive Protein Albumin Triglycerides Arterial Blood Glucose 385 H Urine WBC (Auto) Urine Creatinine Coronavirus (PCR) 07/16/20 07/16/20 07/16/20 11:30 11:30 12:01 WBC Hgb MCV MCH RDW Plt Count Lymph % (Auto) Lymph # (Auto) Seg Neutrophils % Seg Neuts % (Manual) Lymphocytes % (Manual) Nucleated RBC % Seg Neutrophils # Seg Neutrophils # Man Lymphocytes # (Manual) INR D-Dimer ABG pH POC ABG pCO2 POC ABG pO2 ABG pO2 ABG O2 Saturation ABG Base Excess ABG Hemoglobin ABG Oxyhemoglobin ABG Potassium ABG Chloride ABG Glucose Oxyhemoglobin Carboxyhemoglobin Sodium Chloride Carbon Dioxide BUN Creatinine Glucose POC Glucose 206 H Hemoglobin A1c Lactic Acid Calcium Ferritin Alkaline Phosphatase Lactate Dehydrogenase Troponin T C-Reactive Protein Albumin Triglycerides Arterial Blood Glucose Urine WBC (Auto) 11.0 H Urine Creatinine 149.3 H Coronavirus (PCR) 07/16/20 07/16/20 07/16/20 17:18 23:22 Unknown WBC Hgb MCV MCH RDW Plt Count Lymph % (Auto) Lymph # (Auto) Seg Neutrophils % Seg Neuts % (Manual) Lymphocytes % (Manual) Nucleated RBC % Seg Neutrophils # Seg Neutrophils # Man Lymphocytes # (Manual) INR D-Dimer ABG pH POC ABG pCO2 POC ABG pO2 ABG pO2 ABG O2 Saturation ABG Base Excess ABG Hemoglobin ABG Oxyhemoglobin ABG Potassium ABG Chloride ABG Glucose Oxyhemoglobin Carboxyhemoglobin Sodium Chloride Carbon Dioxide BUN Creatinine Glucose POC Glucose 199 H 368 H Hemoglobin A1c Lactic Acid Calcium Ferritin Alkaline Phosphatase Lactate Dehydrogenase Troponin T C-Reactive Protein Albumin Triglycerides 215 H Arterial Blood Glucose Urine WBC (Auto) Urine Creatinine Coronavirus (PCR) 07/17/20 07/17/20 07/17/20 05:10 05:10 Unknown WBC 14.1 H Hgb 9.8 L MCV MCH 26 L RDW 15.8 H Plt Count 74 L Lymph % (Auto) Lymph # (Auto) Seg Neutrophils % Seg Neuts % (Manual) Lymphocytes % (Manual) Nucleated RBC % Seg Neutrophils # Seg Neutrophils # Man Lymphocytes # (Manual) INR D-Dimer ABG pH 7.209 L POC ABG pCO2 62.7 H POC ABG pO2 60.6 L ABG pO2 ABG O2 Saturation ABG Base Excess ABG Hemoglobin 10.7 L ABG Oxyhemoglobin 84 L ABG Potassium ABG Chloride ABG Glucose 450 H Oxyhemoglobin Carboxyhemoglobin Sodium Chloride Carbon Dioxide BUN Creatinine Glucose POC Glucose 333 H Hemoglobin A1c Lactic Acid Calcium Ferritin Alkaline Phosphatase Lactate Dehydrogenase Troponin T C-Reactive Protein Albumin Triglycerides Arterial Blood Glucose 450 H Urine WBC (Auto) Urine Creatinine Coronavirus (PCR) 07/17/20 Unknown WBC Hgb MCV MCH RDW Plt Count Lymph % (Auto) Lymph # (Auto) Seg Neutrophils % Seg Neuts % (Manual) Lymphocytes % (Manual) Nucleated RBC % Seg Neutrophils # Seg Neutrophils # Man Lymphocytes # (Manual) INR D-Dimer ABG pH POC ABG pCO2 POC ABG pO2 ABG pO2 ABG O2 Saturation ABG Base Excess ABG Hemoglobin ABG Oxyhemoglobin ABG Potassium ABG Chloride ABG Glucose Oxyhemoglobin Carboxyhemoglobin Sodium 147 H D Chloride 107.8 H Carbon Dioxide BUN 129 H Creatinine 2.2 H Glucose 471 H POC Glucose Hemoglobin A1c Lactic Acid Calcium 7.8 L Ferritin Alkaline Phosphatase Lactate Dehydrogenase Troponin T C-Reactive Protein Albumin Triglycerides Arterial Blood Glucose Urine WBC (Auto) Urine Creatinine Coronavirus (PCR)
[2020-07-17] MEDS ORDERED: SODIUM CHLORIDE 0.9% 1000 ML 1,000 ML IV SCH (14:45)
--- NOTE | 2020-07-17 14:46 | Progress Note ---
Assessment and Plan # CARMEN: creatinine 1.1->1.8->2.2, may be related to hyperglycemic related dehydration, also potential tubular injury with hypotension over past 24-48 hours. Non-oliguric with ~750cc urine output over past 24 hours - agree with aggressive IVF, will switch to normal saline given improved metabolic acidosis - maintain MAP>65 as able, off sedation per Dr. 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 with guarded renal prognosis, no acute needs today, monitor urine output closely - avoid nephrotoxins - daily renal labs - check renal ultrasound - reviewed prior urine studies # Acidemia: mix of respiratory and metabolic, metabolic improved, pCO2 better today # Azotemia: BUN higher in relation to creatinine, likely steroid related # Sepsis, COVID-19, pneumonia: appreciate pulmonary, vent management # DM # Hypotension: BP soft, not currently on pressors, maintain as able Subjective Date of service: 07/17/20 Interval history: No acute changes noted, remains intubated Objective - Exam Narrative Exam: Exam deferred given COVID-19, reviewed exam of primary. patient seen through window - Vital Signs Vital signs: Vital Signs - 12hr 07/17/20 07/17/20 07/17/20 02:45 03:01 03:15 Temperature Pulse Rate 105 H 105 H 104 H Pulse Rate [ From Monitor] Respiratory 30 H 30 H 27 H Rate Blood Pressure 79/52 81/57 93/63 O2 Sat by Pulse 96 96 98 Oximetry 07/17/20 07/17/20 07/17/20 03:20 03:30 03:45 Temperature 97.9 F Pulse Rate 104 H 103 H Pulse Rate [ From Monitor] Respiratory 30 H 30 H Rate Blood Pressure 101/59 111/52 O2 Sat by Pulse 96 95 Oximetry 07/17/20 07/17/20 07/17/20 04:00 04:15 04:30 Temperature Pulse Rate 103 H 102 H 103 H Pulse Rate [ 108 H From Monitor] Respiratory 30 H 30 H 30 H Rate Blood Pressure 113/60 105/60 118/59 O2 Sat by Pulse 96 95 95 Oximetry 07/17/20 07/17/20 07/17/20 04:45 05:00 05:15 Temperature Pulse Rate 103 H 104 H 103 H Pulse Rate [ From Monitor] Respiratory 30 H 30 H 29 H Rate Blood Pressure 97/61 105/57 95/62 O2 Sat by Pulse 95 94 94 Oximetry 07/17/20 07/17/20 07/17/20 05:31 05:45 06:00 Temperature Pulse Rate 103 H 104 H 102 H Pulse Rate [ From Monitor] Respiratory 29 H 23 30 H Rate Blood Pressure 95/51 116/64 95/56 O2 Sat by Pulse 93 93 95 Oximetry 07/17/20 07/17/20 07/17/20 06:15 06:30 06:45 Temperature Pulse Rate 102 H 102 H 103 H Pulse Rate [ From Monitor] Respiratory 30 H 31 H 27 H Rate Blood Pressure 95/53 94/60 99/61 O2 Sat by Pulse 96 95 95 Oximetry 07/17/20 07/17/20 07/17/20 07:00 07:15 07:30 Temperature 97.9 F Pulse Rate 102 H 103 H 104 H Pulse Rate [ From Monitor] Respiratory 29 H 30 H 30 H Rate Blood Pressure 89/52 82/55 80/56 O2 Sat by Pulse 95 95 94 Oximetry 07/17/20 07/17/20 07/17/20 07:45 08:00 08:15 Temperature Pulse Rate 103 H 103 H 104 H Pulse Rate [ 105 H From Monitor] Respiratory 30 H 18 14 Rate Blood Pressure 102/57 88/59 90/52 O2 Sat by Pulse 94 91 93 Oximetry 07/17/20 07/17/20 07/17/20 08:30 08:42 08:45 Temperature Pulse Rate 103 H 102 H 105 H Pulse Rate [ From Monitor] Respiratory 30 H 20 Rate Blood Pressure 99/50 95/56 98/48 O2 Sat by Pulse 92 95 92 Oximetry 07/17/20 07/17/20 07/17/20 09:00 09:15 09:30 Temperature Pulse Rate 105 H 105 H 106 H Pulse Rate [ From Monitor] Respiratory 15 30 H 27 H Rate Blood Pressure 96/53 86/49 94/48 O2 Sat by Pulse 92 93 92 Oximetry 07/17/20 07/17/20 07/17/20 09:45 10:00 10:15 Temperature Pulse Rate 108 H 107 H 108 H Pulse Rate [ From Monitor] Respiratory 14 30 H 26 H Rate Blood Pressure 88/54 79/51 87/43 O2 Sat by Pulse 92 93 93 Oximetry 07/17/20 07/17/20 07/17/20 10:30 10:45 11:00 Temperature Pulse Rate 108 H 109 H 109 H Pulse Rate [ From Monitor] Respiratory 12 30 H 30 H Rate Blood Pressure 86/51 82/52 88/48 O2 Sat by Pulse 93 93 93 Oximetry 07/17/20 07/17/20 07/17/20 11:15 11:30 11:45 Temperature Pulse Rate 110 H 110 H 109 H Pulse Rate [ From Monitor] Respiratory 15 15 30 H Rate Blood Pressure 93/52 90/51 88/57 O2 Sat by Pulse 93 92 92 Oximetry 07/17/20 07/17/20 07/17/20 12:00 12:15 12:30 Temperature 99.0 F Pulse Rate 109 H 110 H 111 H Pulse Rate [ 110 H From Monitor] Respiratory 30 H 30 H 30 H Rate Blood Pressure 103/58 101/55 94/56 O2 Sat by Pulse 93 93 92 Oximetry 07/17/20 12:45 Temperature Pulse Rate 111 H Pulse Rate [ From Monitor] Respiratory 29 H Rate Blood Pressure 92/55 O2 Sat by Pulse 93 Oximetry - Lab 07/17/20 Unknown 07/17/20 Unknown Most recent lab results ABG pH 7.209 (7.320-7.450) L 07/17/20 05:10 ABG pCO2 32.9 mm Hg 07/13/20 15:50 ABG pO2 73.7 mm Hg (80.0-90.0) L 07/13/20 15:50 ABG HCO3 21.0 mmol/L (20.0-26.0) 07/13/20 15:50 ABG O2 Saturation 94.5 % (95.0-99.0) L 07/13/20 15:50 Calcium 7.8 mg/dL (8.4-10.2) L 07/17/20 Unknown Urine Creatinine 149.3 mg/dL (0.1-20.0) H 07/16/20 11:30 Urine Sodium 24 mmol/L 07/16/20 11:30 Medications & Allergies - Medications Allergies/Adverse Reactions: Allergies No Known Allergies Allergy (Unverified 08/20/15 08:58) Home Medications: Home Medications Medication Instructions Recorded Confirmed Last Taken Type AtorvaSTATin [Lipitor] 20 mg PO QHS 07/14/20 07/14/20 Unknown History Insulin Aspart Prot/Insuln Asp SQ 07/14/20 Unknown History [Novolog Mix 70-30 Flexpen] Losartan/Hydrochlorothiazide 1 each PO 07/14/20 Unknown History [Losartan-Hctz 100-25 mg Tab] metFORMIN [Glucophage] 850 mg PO BID 07/14/20 07/14/20 Unknown History Active Medications: Generic Name Dose Route Start Last Admin Trade Name Freq PRN Reason Stop Dose Admin Acetaminophen 650 mg 07/06/20 11:01 07/09/20 16:35 Acetaminophen 325 Mg Tab PO 650 mg Q4H PRN Administration Pain MILD(1-3)/Fever >100.5/OHARA Acetaminophen 650 mg 07/08/20 01:34 07/08/20 02:04 Acetaminophen 650 Mg Rect Supp OH 650 mg Q4H PRN Administration PainMild (1-3),fever>100.5,OHARA Al Hydrox/Mg Hydrox/Simethicone 30 ml 07/06/20 11:01 Alum-Mag Hydroxide-Simethicone [phone]/5ml Oral Liqd 30 Ml PO Q4H PRN Indigestion Lipase/Protease/Amylase 1 each 07/13/20 11:45 Lipase 10,500/Protease 25,000/Amylase 43,750 (Units) Dr Juárez FEEDTUBE PRN PRN For Clogged Feeding Tube Ascorbic Acid 500 mg 07/06/20 16:00 07/17/20 10:52 Ascorbic Acid 500 Mg Tab PO 500 mg QDAY MITALI Administration Dextrose 50 ml 07/06/20 11:01 Dextrose 50% In Water (25gm) 50 Ml Syringe IV Q30MIN PRN Hypoglycemia Protocol Docusate Sodium 100 mg 07/14/20 10:00 07/17/20 10:52 Docusate Sodium 100 Mg/10 Ml Oral Liqd FEEDTUBE 100 mg BID MITALI Administration Famotidine 20 mg 07/07/20 10:00 07/17/20 10:52 Famotidine 20 Mg/2 Ml Inj IV 20 mg DAILY MITALI Administration Fentanyl 50 mcg 07/13/20 10:23 Fentanyl 100 Mcg/2 Ml Inj IV Q10MIN PRN ANALGESIA Haloperidol Lactate 5 mg 07/10/20 09:00 07/13/20 03:27 Haloperidol Lactate 5 Mg/1 Ml Inj IV 5 mg Q6H PRN Administration Agitation Heparin Sodium (Porcine) 7,500 unit 07/07/20 14:00 07/17/20 14:00 Heparin 5,000 Unit/1 Ml Vial SUB-Q 7,500 unit Q8HR MITALI Administration Hydrocortisone Sodium Succinate 100 mg 07/16/20 15:00 07/17/20 13:45 Hydrocortisone Sod Succ 100 Mg/2 Ml Vial IV 100 mg Q8HR MITALI Administration Hydrophilic Ointment 1 applic 07/13/20 10:23 Lip Therapy Vaseline TP Q2HR PRN Dry Lips Fentanyl Citrate 2,000 mcg in 100 mls @ 3.475 mls/hr 07/13/20 11:00 07/17/20 14:30 Fentanyl Drip Premix IV 3 mcg/kg/hr TITR MITALI 10.425 mls/hr Administration Protocol 1 MCG/KG/HR Midazolam HCl 100 mg/ Sodium 100 mls @ 2 mls/hr 07/15/20 11:00 07/17/20 04:32 Chloride IV 2 mg/hr TITR MITALI 2 mls/hr Administration Protocol 2 MG/HR Insulin Human Isoph/Insulin Regular 30 unit 07/16/20 17:00 07/17/20 08:05 Insulin Nph/Regular 70/30 Inj SUB-Q 30 unit BIDDIAB MITALI Administration Insulin Human Lispro 0 unit 07/16/20 12:00 07/17/20 13:40 Insulin Lispro 100 Unit/Ml SUB-Q 8 unit Q6HR [facility] Administration Protocol Lorazepam 0.5 mg 07/08/20 11:00 07/14/20 23:26 Lorazepam 2 Mg/Ml Vial IV 0.5 mg Q4H PRN Administration Anxiety Midazolam HCl 2 mg 07/15/20 10:48 Midazolam 2 Mg/2 Ml Inj IV Q10MIN PRN Sedation Multi-Ingred Cream/Lotion/Oil/Oint 1 applic 07/13/20 10:23 Mineral Oil/Petrolatum, White Ophth Oint 3.5 Gm OU Q4HR PRN Dry Eye(s) Multi-Ingred Cream/Lotion/Oil/Oint 1 applic 07/15/20 12:00 07/17/20 12:00 Mineral Oil/Petrolatum, White Ophth Oint 3.5 Gm OU 1 applic Q6H MITALI Administration Ondansetron HCl 4 mg 07/06/20 11:01 Ondansetron 4 Mg/2 Ml Inj IV Q8H PRN Nausea And Vomiting Oxycodone/Acetaminophen 1 tab 07/06/20 11:01 Oxycodone /Acetaminophen 5-325mg Tab PO Q6H PRN Pain, Moderate (4-6) Senna 8.6 mg 07/06/20 22:00 07/17/20 10:52 Sennosides 8.6 Mg Tab PO Not Given Q12HR MITALI Simple Syrup 15 ml 07/13/20 11:45 Simple Syrup 15 Ml FEEDTUBE PRN PRN Hypoglycemia Simple Syrup 30 ml 07/13/20 11:45 Simple Syrup 15 Ml FEEDTUBE PRN PRN Hypoglycemia Sodium Bicarbonate 325 mg 07/13/20 11:45 Sodium Bicarbonate 325 Mg Tab FEEDTUBE PRN PRN For Clogged Feeding Tube Sodium Chloride 10 ml 07/06/20 22:00 07/17/20 10:52 Sodium Chloride 0.9% 10 Ml Flush Syringe IV 10 ml BID MITALI Administration Sodium Chloride 10 ml 07/06/20 11:01 Sodium Chloride 0.9% 10 Ml Flush Syringe IV PRN PRN LINE FLUSH Sodium Chloride 5 ml 07/15/20 11:13 Sodium Chloride 0.9% 500 Ml Ivpb IV PRN PRN ART LINE Zinc Sulfate 220 mg 07/06/20 16:00 07/17/20 10:52 Zinc Sulfate 220 Mg Cap PO 220 mg QDAY MITALI Administration
[2020-07-17] MEDS ORDERED: HEPARIN 10,000 UNITS/10 ML VIAL IV PRN (17:27)
--- NOTE | 2020-07-17 17:39 | XRay Report ---
CHEST 1 VIEW 07/17/2020 4:25 PM INDICATION / CLINICAL INFORMATION: Onset of AFib RVR. COMPARISON: 07/15/2020 FINDINGS: SUPPORT DEVICES: Interval placement of left upper extremity PICC in appropriate position. Additional medical devices are in stable position. Bilateral chest tube side ports are projected near the latera l thoracic wall. HEART / MEDIASTINUM: Stable. LUNGS / PLEURA: Worsened patchy bilateral pulmonary opacities when compared to prior exam. The previo usly noted small right apical pneumothorax is no longer visualized. ADDITIONAL FINDINGS: No significant additional findings. IMPRESSION: 1. Interval resolution of previous noted small right apical pneumothorax. 2. Interval worsening of patchy bilateral pulmonary opacities when compared to prior exam. 3. Interval placement of left upper extremity PICC in appropriate position. Additional certified ophthalmic medical technician s are in relatively stable position. Signer Name: Karson Hernandez MD Signed: 07/17/2020 5:34 PM Workstation Name: [id number]
[2020-07-17] MEDS ORDERED: NORepinephrine/NS 4 MG-250 ML 4 MG/250 ML BAG IV ONE (17:41)
[2020-07-17] MEDS ORDERED: SODIUM CHLORIDE 0.9% 1000 ML 1,000 ML IV ONE (17:45)
[2020-07-17] MEDS: AMIODARONE 900 MG in DEXTROSE 5% IN WATER 482 ML IV SCH (17:55)
[2020-07-17] MEDS: HEPARIN/ 0.45% NACL DRIP 25,000 UNIT/500 ML BAG IV SCH (17:55)
[2020-07-17] MEDS: PHENYLEPHRINE 100 MG in SODIUM CHLORIDE 0.9% 90 ML IV SCH (17:55)
[2020-07-17 18:44] LABS: INR 1.2 (0.87-1.13)
[2020-07-17 18:53] LABS: Partial Thromboplastin Time 86.4 Sec. (24.2-36.6)
[2020-07-18] MEDS: MINERAL OIL/PETROLATUM, WHITE OPHTH OINT 3.5 GM OU SCH ×4 (00:05→18:08)
[2020-07-18] MEDS: INSULIN LISPRO 100 UNIT/ML SUB-Q SCH ×5 (00:06→18:19)
[2020-07-18] MEDS: fentaNYL DRIP Premix 2,000 MCG/100 ML BAG IV SCH (02:09)
[2020-07-18 05:02] LABS: Hematocrit 28.9 % (30.3-42.9); Hemoglobin 9.1 gm/dl (10.1-14.3); Mean Corpuscular HGB Conc 31 % (30-34); Mean Corpuscular Volume 82 fl (79-97); Red Blood Count 3.52 M/mm3 (3.65-5.03); Red Cell Distribution Width 15.6 % (13.2-15.2)
[2020-07-18 05:12] LABS: Platelet Count 94 K/mm3 (140-440)
[2020-07-18 05:13] LABS: Basophils % (Auto) 0.2 % (0.0-1.8); Calcium 8.3 mg/dL (8.4-10.2); Eosinophils % (Auto) 0.1 % (0.0-4.3); Lymphocytes # (Auto) 2.1 K/mm3 (1.2-5.4); Lymphocytes % (Auto) 9.9 % (13.4-35.0); Monocytes # (Auto) 1.3 K/mm3 (0.0-0.8); Monocytes % (Auto) 6.2 % (0.0-7.3)
[2020-07-18] MEDS: HYDROCORTISONE SOD SUCC 100 MG/2 ML VIAL IV SCH ×3 (06:18→21:00)
[2020-07-18] MEDS: INSULIN NPH/REGULAR 70/30 INJ SUB-Q SCH ×2 (08:00→17:00)
[2020-07-18] MEDS: PHENYLEPHRINE 100 MG in SODIUM CHLORIDE 0.9% 90 ML IV SCH ×2 (09:49→20:04)
[2020-07-18] MEDS: ASCORBIC ACID 500 MG TAB PO SCH (09:49)
[2020-07-18] MEDS: DOCUSATE SODIUM 100 MG/10 ML ORAL LIQD FEEDTUBE SCH ×2 (09:49→22:00)
[2020-07-18] MEDS: FAMOTIDINE 20 MG/2 ML INJ IV SCH (09:49)
[2020-07-18] MEDS: ZINC SULFATE 220 MG CAP PO SCH (09:49)
[2020-07-18] MEDS: SENNOSIDES 8.6 MG TAB PO SCH ×2 (10:00→22:00)
--- NOTE | 2020-07-18 10:03 | Progress Note ---
Assessment and Plan Paroxysmal atrial fibrillation Normal TSH this admission Normal LVEF by echo Started IV amiodarone and heparin 07/17/2020 Maintaining sinus rhythm Hypotension Started denise drip 07/17/2020 to maintain MAP > 70 Acute renal failure Acute hypoxic respiratory failure Covid 19 pneumonia Recommendations: Continue current management Supportive care per ICU team Monitor CBC daily Subjective Date of service: 07/18/20 Principal diagnosis: Covid 19 Interval history: Patient remains intubated, sedated and mechanically ventilated Objective Vital Signs Temp Pulse Pulse Resp BP Pulse Ox 07/18/20 08:20 106 H 88/53 95 07/18/20 07:15 99.6 F 07/18/20 06:00 104 H 12 96/54 94 07/18/20 05:45 105 H 13 82/55 94 07/18/20 05:30 105 H 13 83/56 95 07/18/20 05:15 103 H 13 98/47 94 07/18/20 05:00 104 H 15 97/51 95 07/18/20 04:45 103 H 13 83/41 95 07/18/20 04:30 102 H 13 87/52 97 07/18/20 04:19 102 H 87/50 95 07/18/20 04:15 102 H 14 87/50 94 07/18/20 04:00 99.3 F 102 H 103 H 17 86/50 95 07/18/20 03:45 106 H 16 76/46 88 07/18/20 03:30 108 H 18 98/55 86 07/18/20 03:15 108 H 30 H 83/50 96 07/18/20 03:00 109 H 31 H 91/53 96 07/18/20 02:45 108 H 27 H 100/55 96 07/18/20 02:30 108 H 20 90/58 95 07/18/20 02:15 109 H 29 H 93/53 96 07/18/20 02:00 108 H 26 H 91/53 95 07/18/20 01:45 109 H 29 H 99/55 96 07/18/20 01:30 109 H 30 H 84/62 96 07/18/20 01:15 109 H 29 H 102/54 96 07/18/20 01:00 107 H 31 H 99/55 95 07/18/20 00:45 109 H 30 H 99/50 96 07/18/20 00:30 108 H 30 H 84/54 96 02/21/21 00:15 109 H 30 H 86/56 95 02//21 00:00 99.1 F 108 H 108 H 30 H 85/55 96 02/20/21 23:45 108 H 26 H 92/53 96 02/20/21 23:30 108 H 30 H 93/54 96 02/20/21 23:20 108 H 29 H 93/54 97 0220/21 23:15 108 H 30 H 93/54 95 02/20/21 23:00 106 H 22 88/53 96 0220/21 22:45 107 H 30 H 99/50 95 02/20/21 22:30 107 H 30 H 96/51 95 0220/21 22:15 108 H 19 95/56 95 0220/21 22:00 108 H 30 H 78/51 94 0220/21 21:45 110 H 30 H 83/52 93 0220/21 21:30 112 H 30 H 83/51 94 0220/21 21:15 114 H 29 H 89/56 93 0220/21 21:00 116 H 26 H 96/56 93 02/20/21 20:50 124 H 91/46 94 02/20/21 20:45 126 H 25 H 91/46 95 0220/21 20:30 118 H 30 H 101/63 93 02/20/21 20:15 126 H 30 H 110/67 93 02/20/21 20:11 117 H 29 H 107/71 94 02/20/21 20:05 119 H 30 H 107/71 94 02/20/21 20:00 98.6 F 119 H 107 H 30 H 107/71 93 02/20/21 19:55 175 H 26 H 100/66 90 02/20/21 19:51 154 H 30 H 100/66 89 02/20/21 19:45 136 H 29 H 100/66 90 02/20/21 19:41 157 H 30 H 109/66 90 02/20/21 19:35 139 H 30 H 109/66 89 02/20/21 19:30 133 H 29 H 109/66 89 02/20/21 19:25 163 H 24 116/61 91 02/20/21 19:21 158 H 18 116/61 90 02/20/21 19:15 144 H 18 116/61 91 20 19:11 140 H 16 112/73 91 07/17/20 19:05 177 H 18 112/73 91 07/17/20 19:00 152 H 20 112/73 90 07/17/20 18:55 152 H 17 110/74 90 07/17/20 18:51 137 H 17 110/74 92 20 18:45 140 H 24 110/74 92 20 18:41 145 H 26 H 127/68 93 20 18:35 152 H 20 127/68 97 07/17/20 18:30 144 H 30 H 121/66 97 20 18:25 144 H 18 114/71 97 07/17/20 18:21 140 H 16 118/73 97 07/17/20 18:15 163 H 18 98/71 99 07/17/20 18:10 143 H 20 107/68 99 07/17/20 18:05 139 H 22 112/62 97 07/17/20 18:00 140 H 22 111/59 95 07/17/20 17:55 184 H 11 L 139/69 91 07/17/20 17:51 172 H 31 H 139/69 96 20 17:45 171 H 30 H 54/33 91 20 17:41 174 H 30 H 58/34 90 21 17:35 168 H 30 H 58/34 90 07/17/20 17:30 165 H 30 H 73/41 92 20 17:25 175 H 30 H 65/44 91 20 17:20 161 H 29 H 65/33 94 2021 17:15 157 H 30 H 74/48 96 20 17:10 159 H 23 74/48 96 20/21 17:05 162 H 21 87/47 97 20/21 17:00 99.7 F H 166 H 22 87/47 98 0220/21 16:55 164 H 26 H 96/56 97 20/ 16:50 152 H 20 90/60 97 20/21 16:45 147 H 20 84/60 97 20/21 16:30 159 H 27 H 87/59 97 20/21 16:15 162 H 22 92/51 96 07/17/20 16:00 122 H 182 H 22 86/56 92 07/17/20 15:45 120 H 20 93/55 91 07/17/20 15:30 119 H 18 87/56 92 07/17/20 15:18 111 H 92/55 93 07/17/20 15:15 119 H 19 92/52 91 07/17/20 15:00 117 H 23 97/48 91 07/17/20 14:45 116 H 18 91/55 91 07/17/20 14:30 114 H 18 88/57 91 07/17/20 14:15 114 H 20 86/57 91 07/17/20 14:00 113 H 18 93/51 91 07/17/20 13:45 114 H 16 92/57 91 07/17/20 13:30 113 H 30 H 99/46 92 07/17/20 13:15 113 H 30 H 91/55 92 07/17/20 13:00 114 H 30 H 96/52 92 07/17/20 12:45 111 H 29 H 92/55 93 07/17/20 12:30 111 H 30 H 94/56 92 07/17/20 12:15 110 H 30 H 101/55 93 07/17/20 12:00 99.0 F 109 H 110 H 30 H 103/58 93 07/17/20 11:45 109 H 30 H 88/57 92 07/17/20 11:30 110 H 15 90/51 92 07/17/20 11:15 110 H 15 93/52 93 07/17/20 11:00 109 H 30 H 88/48 93 07/17/20 10:45 109 H 30 H 82/52 93 07/17/20 10:30 108 H 12 86/51 93 07/17/20 10:15 108 H 26 H 87/43 93 07/17/20 10:00 107 H 30 H 79/51 93 - Physical Examination General: Other (Intubated ) Cardiac: Positive: Reg Rate and Rhythm Lungs: Positive: Ventilated Respirations Abdomen: Positive: Soft - Labs and Meds Coagulation 07/17/20 Range/Units 18:20 PT 15.0 H (12.2-14.9) Sec. INR 1.20 H (0.87-1.13) APTT 86.4 H* (24.2-36.6) Sec. CBC 07/18/20 Range/Units 04:45 WBC 21.0 H (4.5-11.0) K/mm3 RBC 3.52 L (3.65-5.03) M/mm3 Hgb 9.1 L (10.1-14.3) gm/dl Hct 28.9 L (30.3-42.9) % Plt Count 94 L (140-440) K/mm3 Lymph # (Auto) 2.1 (1.2-5.4) K/mm3 [place] # (Auto) 1.3 H (0.0-0.8) K/mm3 Eos # (Auto) 0.0 (0.0-0.4) K/mm3 Baso # (Auto) 0.0 (0.0-0.1) K/mm3 Comprehensive Metabolic Panel 07/18/20 Range/Units 04:45 Sodium 147 H (137-145) mmol/L Potassium 5.1 H (3.6-5.0) mmol/L Chloride 108.0 H (98-107) mmol/L Carbon Dioxide 33 H (22-30) mmol/L BUN 127 H (7-17) mg/dL Creatinine 2.4 H (0.6-1.2) mg/dL Glucose 256 H (65-100) mg/dL Calcium 8.3 L (8.4-10.2) mg/dL
--- NOTE | 2020-07-18 12:44 | Progress Note ---
Assessment and Plan Cultures: SARS CoV2 PCR: Positive 07/06/2020 blood culture: No growth 07/13/2020 tracheal aspirate: usual yovanny 07/16/2020 urine culture: no growth A/P: 69-year-old female with hypertension, diabetes: #Sepsis: Secondary to COVID-19. #Bilateral pneumonia: Secondary to COVID-19. Completed remdesivir. ?superimposed VAP. #Acute hypoxic respiratory failure: on the vent. #CARMEN: creatinine elevated. #Elevated D-dimer: VTE evaluation negative. Recs: -low grade fevers, interval worsening infiltrates on CXR, will add empiric Cefepime 2 gm daily -leucocytosis probably also from steroids (hydrocortisone) -prophylactic anticoagulation based on d-dimer per hospital protocol -guarded prognosis Yuliet Leija MD, FACP [facility] ([facility] O: [phone] F: [phone] Subjective Date of service: 07/18/20 Principal diagnosis: Covid 19 Interval history: Low grade fever. Remains on the ventilator Objective - Exam Narrative Exam: Physical Exam (reviewed in chart to minimize risk of transmission) Constitutional: deferred Head, Ears, Nose: deferred Eyes: deferred Neck: deferred Oral: deferred Cardiovascular: deferred Respiratory: deferred GI: deferred Musculoskeletal: deferred Skin: deferred Hem/Lymphatic: deferred Psych: deferred Neurological: deferred - Constitutional Vitals: Vital Signs Temp Pulse Resp BP Pulse Ox 100.5 F H 115 H 27 H 86/53 93 07/18/20 12:29 07/18/20 12:00 07/18/20 12:00 07/18/20 12:00 07/18/20 12:00 Temperature -Last 24 Hours Temperature 100.5 F Temperature 100.5 F Temperature 99.6 F Temperature 99.3 F Temperature 99.1 F Temperature 98.6 F Temperature 99.7 F - Labs CBC & Chem 7: 07/18/20 04:45 07/18/20 04:45 Labs: Abnormal lab results 07/17/20 07/17/20 07/17/20 Range/Units 11:50 17:30 18:20 WBC (4.5-11.0) K/mm3 RBC (3.65-5.03) M/mm3 Hgb (10.1-14.3) gm/dl Hct (30.3-42.9) % MCH (28-32) pg RDW (13.2-15.2) % Plt Count (140-440) K/mm3 Lymph % (Auto) (13.4-35.0) % [place] # (Auto) (0.0-0.8) K/mm3 Seg Neutrophils % (40.0-70.0) % Seg Neutrophils # (1.8-7.7) K/mm3 PT 15.0 H (12.2-14.9) Sec. INR 1.20 H (0.87-1.13) APTT 86.4 H* (24.2-36.6) Sec. Heparin Anti-Xa Level (0.3-0.7) U.I./ml POC ABG pCO2 (32.0-48.0) mmHg POC ABG pO2 (83-108) mmHg ABG Potassium (3.40-4.50) mmol/L ABG Glucose (65-95) mg/dL Sodium (137-145) mmol/L Potassium (3.6-5.0) mmol/L Chloride (98-107) mmol/L Carbon Dioxide (22-30) mmol/L BUN (7-17) mg/dL Creatinine (0.6-1.2) mg/dL Glucose (65-100) mg/dL POC Glucose 385 H 418 H (70-105) mg/dL Calcium (8.4-10.2) mg/dL Arterial Blood Glucose (65-95) mg/dL 07/17/20 07/18/20 07/18/20 Range/Units 23:46 00:13 04:19 WBC (4.5-11.0) K/mm3 RBC (3.65-5.03) M/mm3 Hgb (10.1-14.3) gm/dl Hct (30.3-42.9) % MCH (28-32) pg RDW (13.2-15.2) % Plt Count (140-440) K/mm3 Lymph % (Auto) (13.4-35.0) % [place] # (Auto) (0.0-0.8) K/mm3 Seg Neutrophils % (40.0-70.0) % Seg Neutrophils # (1.8-7.7) K/mm3 PT (12.2-14.9) Sec. INR (0.87-1.13) APTT (24.2-36.6) Sec. Heparin Anti-Xa Level 1.91 H (0.3-0.7) U.I./ml POC ABG pCO2 61.9 H (32.0-48.0) mmHg POC ABG pO2 72.1 L (83-108) mmHg ABG Potassium 4.7 H (3.40-4.50) mmol/L ABG Glucose 248 H (65-95) mg/dL Sodium (137-145) mmol/L Potassium (3.6-5.0) mmol/L Chloride (98-107) mmol/L Carbon Dioxide (22-30) mmol/L BUN (7-17) mg/dL Creatinine (0.6-1.2) mg/dL Glucose (65-100) mg/dL POC Glucose 310 H (70-105) mg/dL Calcium (8.4-10.2) mg/dL Arterial Blood Glucose 248 H (65-95) mg/dL 07/18/20 07/18/20 07/18/20 Range/Units 04:45 04:45 05:33 WBC 21.0 H (4.5-11.0) K/mm3 RBC 3.52 L (3.65-5.03) M/mm3 Hgb 9.1 L (10.1-14.3) gm/dl Hct 28.9 L (30.3-42.9) % MCH 26 L (28-32) pg RDW 15.6 H (13.2-15.2) % Plt Count 94 L (140-440) K/mm3 Lymph % (Auto) 9.9 L (13.4-35.0) % [place] # (Auto) 1.3 H (0.0-0.8) K/mm3 Seg Neutrophils % 83.6 H (40.0-70.0) % Seg Neutrophils # 17.6 H (1.8-7.7) K/mm3 PT (12.2-14.9) Sec. INR (0.87-1.13) APTT (24.2-36.6) Sec. Heparin Anti-Xa Level (0.3-0.7) U.I./ml POC ABG pCO2 (32.0-48.0) mmHg POC ABG pO2 (83-108) mmHg ABG Potassium (3.40-4.50) mmol/L ABG Glucose (65-95) mg/dL Sodium 147 H (137-145) mmol/L Potassium 5.1 H (3.6-5.0) mmol/L Chloride 108.0 H (98-107) mmol/L Carbon Dioxide 33 H (22-30) mmol/L BUN 127 H (7-17) mg/dL Creatinine 2.4 H (0.6-1.2) mg/dL Glucose 256 H (65-100) mg/dL POC Glucose 238 H (70-105) mg/dL Calcium 8.3 L (8.4-10.2) mg/dL Arterial Blood Glucose (65-95) mg/dL 07/18/20 07/18/20 Range/Units 08:22 12:08 WBC (4.5-11.0) K/mm3 RBC (3.65-5.03) M/mm3 Hgb (10.1-14.3) gm/dl Hct (30.3-42.9) % MCH (28-32) pg RDW (13.2-15.2) % Plt Count (140-440) K/mm3 Lymph % (Auto) (13.4-35.0) % [place] # (Auto) (0.0-0.8) K/mm3 Seg Neutrophils % (40.0-70.0) % Seg Neutrophils # (1.8-7.7) K/mm3 PT (12.2-14.9) Sec. INR (0.87-1.13) APTT (24.2-36.6) Sec. Heparin Anti-Xa Level (0.3-0.7) U.I./ml POC ABG pCO2 (32.0-48.0) mmHg POC ABG pO2 (83-108) mmHg ABG Potassium (3.40-4.50) mmol/L ABG Glucose (65-95) mg/dL Sodium (137-145) mmol/L Potassium (3.6-5.0) mmol/L Chloride (98-107) mmol/L Carbon Dioxide (22-30) mmol/L BUN (7-17) mg/dL Creatinine (0.6-1.2) mg/dL Glucose (65-100) mg/dL POC Glucose 199 H 204 H (70-105) mg/dL Calcium (8.4-10.2) mg/dL Arterial Blood Glucose (65-95) mg/dL - Imaging and cardiology Chest x-ray: report reviewed, image reviewed (worsening infiltrates)
--- NOTE | 2020-07-18 13:15 | Progress Note ---
Assessment and Plan # CARMEN: creatinine 1.1->1.8->2.2->2.4, likely tubular injury with hypotension, overall illness. Non-oliguric with ~1.1L urine output over past 24 hours - agree with aggressive IVF, continue NS - maintain MAP>65 as able, off sedation per Dr. Barlow - aggressive glucose control per primary - high likelihood of needing [employer] with guarded renal prognosis, no acute needs today, monitor urine output closely. Unstable for HD if needed today given tachycardia, will continue to monitor. - avoid nephrotoxins - daily renal labs - check renal ultrasound - reviewed prior urine studies # Acidemia: mix of respiratory and metabolic, stable # Azotemia: BUN higher in relation to creatinine, likely steroid related; if not improving will need dialysis for potential uremia # Sepsis, COVID-19, pneumonia: appreciate pulmonary, vent management # DM # Hypotension: BP soft now on [place] # A-Fib with RVR: HR remains >110 at time of visit, on amio/hep gtt Subjective Date of service: 07/18/20 Principal diagnosis: Covid 19 Interval history: No acute changes noted, remains intubated, now on pressors, hep gtt and amio for A-fib with RVR on 07/18 Objective - Exam Narrative Exam: Exam deferred given COVID-19, reviewed exam of primary. patient seen through window - Vital Signs Vital signs: Vital Signs - 12hr 07/18/20 07/18/20 07/18/20 01:30 01:45 02:00 Temperature Pulse Rate 109 H 109 H 108 H Pulse Rate [ From Monitor] Respiratory 30 H 29 H 26 H Rate Blood Pressure 84/62 99/55 91/53 O2 Sat by Pulse 96 96 95 Oximetry 07/18/20 07/18/20 07/18/20 02:15 02:30 02:45 Temperature Pulse Rate 109 H 108 H 108 H Pulse Rate [ From Monitor] Respiratory 29 H 20 27 H Rate Blood Pressure 93/53 90/58 100/55 O2 Sat by Pulse 96 95 96 Oximetry 07/18/20 07/18/20 07/18/20 03:00 03:15 03:30 Temperature Pulse Rate 109 H 108 H 108 H Pulse Rate [ From Monitor] Respiratory 31 H 30 H 18 Rate Blood Pressure 91/53 83/50 98/55 O2 Sat by Pulse 96 96 86 Oximetry 07/18/20 07/18/20 07/18/20 03:45 04:00 04:15 Temperature 99.3 F Pulse Rate 106 H 102 H 102 H Pulse Rate [ 103 H From Monitor] Respiratory 16 17 14 Rate Blood Pressure 76/46 86/50 87/50 O2 Sat by Pulse 88 95 94 Oximetry 07/18/20 07/18/20 07/18/20 04:19 04:30 04:45 Temperature Pulse Rate 102 H 102 H 103 H Pulse Rate [ From Monitor] Respiratory 13 13 Rate Blood Pressure 87/50 87/52 83/41 O2 Sat by Pulse 95 97 95 Oximetry 07/18/20 07/18/20 07/18/20 05:00 05:15 05:30 Temperature Pulse Rate 104 H 103 H 105 H Pulse Rate [ From Monitor] Respiratory 15 13 13 Rate Blood Pressure 97/51 98/47 83/56 O2 Sat by Pulse 95 94 95 Oximetry 07/18/20 07/18/20 07/18/20 05:45 06:00 06:15 Temperature Pulse Rate 105 H 104 H 105 H Pulse Rate [ From Monitor] Respiratory 13 12 12 Rate Blood Pressure 82/55 96/54 83/55 O2 Sat by Pulse 94 94 94 Oximetry 07/18/20 07/18/20 07/18/20 06:30 06:45 07:00 Temperature Pulse Rate 105 H 105 H 105 H Pulse Rate [ From Monitor] Respiratory 13 12 11 L Rate Blood Pressure 84/54 91/54 82/53 O2 Sat by Pulse 94 94 94 Oximetry 07/18/20 07/18/20 07/18/20 07:15 07:30 07:45 Temperature 99.6 F Pulse Rate 100 H 105 H 106 H Pulse Rate [ From Monitor] Respiratory 12 12 12 Rate Blood Pressure 88/53 94/58 88/54 O2 Sat by Pulse 94 94 93 Oximetry 07/18/20 07/18/20 07/18/20 08:00 08:15 08:20 Temperature Pulse Rate 104 H 105 H 106 H Pulse Rate [ From Monitor] Respiratory 12 20 Rate Blood Pressure 88/53 109/43 88/53 O2 Sat by Pulse 93 93 95 Oximetry 07/18/20 07/18/20 07/18/20 08:30 08:45 09:00 Temperature Pulse Rate 104 H 104 H 106 H Pulse Rate [ From Monitor] Respiratory 12 13 16 Rate Blood Pressure 98/56 89/55 92/52 O2 Sat by Pulse 93 94 94 Oximetry 07/18/20 07/18/20 07/18/20 09:15 09:30 09:45 Temperature Pulse Rate 107 H 108 H 108 H Pulse Rate [ From Monitor] Respiratory 13 15 13 Rate Blood Pressure 86/56 86/53 90/45 O2 Sat by Pulse 94 93 93 Oximetry 07/18/20 07/18/20 07/18/20 10:00 10:15 10:30 Temperature Pulse Rate 110 H 110 H 109 H Pulse Rate [ From Monitor] Respiratory 18 15 22 Rate Blood Pressure 94/55 86/51 103/46 O2 Sat by Pulse 93 93 93 Oximetry 07/18/20 07/18/20 07/18/20 10:45 11:00 11:15 Temperature Pulse Rate 111 H 112 H 111 H Pulse Rate [ From Monitor] Respiratory 12 13 20 Rate Blood Pressure 94/57 97/55 90/53 O2 Sat by Pulse 92 92 92 Oximetry 07/18/20 07/18/20 07/18/20 11:30 11:45 12:00 Temperature 100.5 F H Pulse Rate 112 H 114 H 115 H Pulse Rate [ From Monitor] Respiratory 18 30 H 27 H Rate Blood Pressure 87/51 96/57 86/53 O2 Sat by Pulse 93 93 93 Oximetry 07/18/20 12:29 Temperature 100.5 F H Pulse Rate Pulse Rate [ From Monitor] Respiratory Rate Blood Pressure O2 Sat by Pulse Oximetry - Lab 07/18/20 04:45 07/18/20 04:45 Most recent lab results ABG pH Cancelled 07/18/20 04:19 ABG pCO2 Cancelled 07/18/20 04:19 ABG pO2 Cancelled 07/18/20 04:19 ABG HCO3 Cancelled 07/18/20 04:19 ABG O2 Saturation Cancelled 07/18/20 04:19 Calcium 8.3 mg/dL (8.4-10.2) L 07/18/20 04:45 Urine Creatinine 149.3 mg/dL (0.1-20.0) H 07/16/20 11:30 Urine Sodium 24 mmol/L 07/16/20 11:30 Medications & Allergies - Medications Allergies/Adverse Reactions: Allergies No Known Allergies Allergy (Unverified 08/20/15 08:58) Home Medications: Home Medications Medication Instructions Recorded Confirmed Last Taken Type AtorvaSTATin [Lipitor] 20 mg PO QHS 07/14/20 07/14/20 Unknown History Insulin Aspart Prot/Insuln Asp SQ 07/14/20 Unknown History [Novolog Mix 70-30 Flexpen] Losartan/Hydrochlorothiazide 1 each PO 07/14/20 Unknown History [Losartan-Hctz 100-25 mg Tab] metFORMIN [Glucophage] 850 mg PO BID 07/14/20 07/14/20 Unknown History Active Medications: Generic Name Dose Route Start Last Admin Trade Name Freq PRN Reason Stop Dose Admin Acetaminophen 650 mg 07/06/20 11:01 07/09/20 16:35 Acetaminophen 325 Mg Tab PO 650 mg Q4H PRN Administration Pain MILD(1-3)/Fever >100.5/OHARA Acetaminophen 650 mg 07/08/20 01:34 07/08/20 02:04 Acetaminophen 650 Mg Rect Supp PA 650 mg Q4H PRN Administration PainMild (1-3),fever>100.5,OHARA Al Hydrox/Mg Hydrox/Simethicone 30 ml 07/06/20 11:01 Alum-Mag Hydroxide-Simethicone [phone]/5ml Oral Liqd 30 Ml PO Q4H PRN Indigestion Lipase/Protease/Amylase 1 each 07/13/20 11:45 Lipase 10,500/Protease 25,000/Amylase 43,750 (Units) Dr Juárez FEEDTUBE PRN PRN For Clogged Feeding Tube Ascorbic Acid 500 mg 07/06/20 16:00 07/18/20 09:49 Ascorbic Acid 500 Mg Tab PO 500 mg QDAY MITALI Administration Dextrose 50 ml 07/06/20 11:01 Dextrose 50% In Water (25gm) 50 Ml Syringe IV Q30MIN PRN Hypoglycemia Protocol Docusate Sodium 100 mg 07/14/20 10:00 07/18/20 09:49 Docusate Sodium 100 Mg/10 Ml Oral Liqd FEEDTUBE 100 mg BID MITALI Administration Famotidine 20 mg 07/07/20 10:00 07/18/20 09:49 Famotidine 20 Mg/2 Ml Inj IV 20 mg DAILY MITALI Administration Fentanyl 50 mcg 07/13/20 10:23 Fentanyl 100 Mcg/2 Ml Inj IV Q10MIN PRN ANALGESIA Haloperidol Lactate 5 mg 07/10/20 09:00 07/13/20 03:27 Haloperidol Lactate 5 Mg/1 Ml Inj IV 5 mg Q6H PRN Administration Agitation Heparin Sodium (Porcine) 3,200 unit 07/17/20 17:27 Heparin 10,000 Units/10 Ml Vial 40 unit/kg (3200 unit) IV Q6H PRN Anti-Xa Assay < 0.1 units/ml Hydrocortisone Sodium Succinate 100 mg 07/16/20 15:00 07/18/20 06:18 Hydrocortisone Sod Succ 100 Mg/2 Ml Vial IV 100 mg Q8HR MITALI Administration Hydrophilic Ointment 1 applic 07/13/20 10:23 Lip Therapy Vaseline TP Q2HR PRN Dry Lips Fentanyl Citrate 2,000 mcg in 100 mls @ 3.475 mls/hr 07/13/20 11:00 07/18/20 06:43 Fentanyl Drip Premix IV 1 mcg/kg/hr TITR MITALI 3.475 mls/hr Titration Protocol 1 MCG/KG/HR Midazolam HCl 100 mg/ Sodium 100 mls @ 2 mls/hr 07/15/20 11:00 07/18/20 00:50 Chloride IV 1 mg/hr TITR MITALI 1 mls/hr Titration Protocol 2 MG/HR Sodium Chloride 1,000 mls @ 125 mls/hr 07/17/20 14:45 Nacl 0.9% 1000 Ml IV DIRECT MITALI Amiodarone HCl 900 mg/ 500 mls @ 16.667 mls/hr 07/17/20 18:00 07/17/20 17:55 Dextrose IV 0.5 mg/min DIRECT MITALI 16.667 mls/hr Administration Protocol 0.5 MG/MIN Heparin Sodium/Sodium Chloride 25,000 unit in 500 mls @ 24 mls/hr 07/17/20 18:00 07/18/20 04:35 Heparin/ 0.45% Nacl-25,000 Unit/500 Ml IV 950 units/hr TITR IMTALI 19 mls/hr Titration Protocol 1,200 UNITS/HR Phenylephrine HCl 100 mg/ 100 mls @ 3 mls/hr 07/17/20 17:45 07/18/20 09:49 Sodium Chloride IV 100 mcg/min TITR MITALI 6 mls/hr Administration Protocol 50 MCG/MIN Cefepime HCl 2 gm in 100 mls @ 200 mls/hr 07/18/20 14:00 Cefepime/Ns 2 Gm/100 Ml IV Q24H MITALI Protocol Insulin Human Isoph/Insulin Regular 30 unit 07/16/20 17:00 07/18/20 08:00 Insulin Nph/Regular 70/30 Inj SUB-Q 30 unit BIDDIAB MITALI Administration Insulin Human Lispro 0 unit 07/16/20 12:00 07/18/20 12:34 Insulin Lispro 100 Unit/Ml SUB-Q 3 unit Q6HR MITALI Administration Protocol Lorazepam 0.5 mg 07/08/20 11:00 07/14/20 23:26 Lorazepam 2 Mg/Ml Vial IV 0.5 mg Q4H PRN Administration Anxiety Midazolam HCl 2 mg 07/15/20 10:48 Midazolam 2 Mg/2 Ml Inj IV Q10MIN PRN Sedation Multi-Ingred Cream/Lotion/Oil/Oint 1 applic 07/13/20 10:23 Mineral Oil/Petrolatum, White Ophth Oint 3.5 Gm OU Q4HR PRN Dry Eye(s) Multi-Ingred Cream/Lotion/Oil/Oint 1 applic 07/15/20 12:00 07/18/20 12:33 Mineral Oil/Petrolatum, White Ophth Oint 3.5 Gm OU 1 applic Q6H MITALI Administration Ondansetron HCl 4 mg 07/06/20 11:01 Ondansetron 4 Mg/2 Ml Inj IV Q8H PRN Nausea And Vomiting Oxycodone/Acetaminophen 1 tab 07/06/20 11:01 Oxycodone /Acetaminophen 5-325mg Tab PO Q6H PRN Pain, Moderate (4-6) Senna 8.6 mg 07/06/20 22:00 07/18/20 10:00 Sennosides 8.6 Mg Tab PO Not Given Q12HR MITALI Simple Syrup 15 ml 07/13/20 11:45 Simple Syrup 15 Ml FEEDTUBE PRN PRN Hypoglycemia Simple Syrup 30 ml 07/13/20 11:45 Simple Syrup 15 Ml FEEDTUBE PRN PRN Hypoglycemia Sodium Bicarbonate 325 mg 07/13/20 11:45 Sodium Bicarbonate 325 Mg Tab FEEDTUBE PRN PRN For Clogged Feeding Tube Sodium Chloride 10 ml 07/06/20 22:00 07/18/20 12:33 Sodium Chloride 0.9% 10 Ml Flush Syringe IV 10 ml BID MITALI Administration Sodium Chloride 10 ml 07/06/20 11:01 Sodium Chloride 0.9% 10 Ml Flush Syringe IV PRN PRN LINE FLUSH Sodium Chloride 5 ml 07/15/20 11:13 Sodium Chloride 0.9% 500 Ml Ivpb IV PRN PRN ART LINE Zinc Sulfate 220 mg 07/06/20 16:00 07/18/20 09:49 Zinc Sulfate 220 Mg Cap PO 220 mg QDAY MITALI Administration
--- NOTE | 2020-07-18 13:18 | Progress Note ---
Assessment and Plan - Patient Problems (1) Pneumothorax Current Visit: Yes Status: Acute (2) Pneumothorax on left Current Visit: Yes Status: Acute (3) Pneumothorax on right Current Visit: Yes Status: Acute (4) Acute renal failure Current Visit: Yes Status: Acute (5) Acute respiratory failure with hypoxia Current Visit: Yes Status: Acute (6) COVID-19 Current Visit: Yes Status: Acute (7) Hyperglycemia Current Visit: Yes Status: Acute (8) Pneumonia Current Visit: Yes Status: Acute Subjective Principal diagnosis: Covid 19 Interval history: events noted now on amiodarone bg >400 Objective Vital Signs - 12hr 07/18/20 07/18/20 07/18/20 01:30 01:45 02:00 Temperature Pulse Rate 109 H 109 H 108 H Pulse Rate [ From Monitor] Respiratory 30 H 29 H 26 H Rate Blood Pressure 84/62 99/55 91/53 O2 Sat by Pulse 96 96 95 Oximetry 07/18/20 07/18/20 07/18/20 02:15 02:30 02:45 Temperature Pulse Rate 109 H 108 H 108 H Pulse Rate [ From Monitor] Respiratory 29 H 20 27 H Rate Blood Pressure 93/53 90/58 100/55 O2 Sat by Pulse 96 95 96 Oximetry 07/18/20 07/18/20 07/18/20 03:00 03:15 03:30 Temperature Pulse Rate 109 H 108 H 108 H Pulse Rate [ From Monitor] Respiratory 31 H 30 H 18 Rate Blood Pressure 91/53 83/50 98/55 O2 Sat by Pulse 96 96 86 Oximetry 07/18/20 07/18/20 07/18/20 03:45 04:00 04:15 Temperature 99.3 F Pulse Rate 106 H 102 H 102 H Pulse Rate [ 103 H From Monitor] Respiratory 16 17 14 Rate Blood Pressure 76/46 86/50 87/50 O2 Sat by Pulse 88 95 94 Oximetry 07/18/20 07/18/20 07/18/20 04:19 04:30 04:45 Temperature Pulse Rate 102 H 102 H 103 H Pulse Rate [ From Monitor] Respiratory 13 13 Rate Blood Pressure 87/50 87/52 83/41 O2 Sat by Pulse 95 97 95 Oximetry 07/18/20 07/18/20 07/18/20 05:00 05:15 05:30 Temperature Pulse Rate 104 H 103 H 105 H Pulse Rate [ From Monitor] Respiratory 15 13 13 Rate Blood Pressure 97/51 98/47 83/56 O2 Sat by Pulse 95 94 95 Oximetry 07/18/20 07/18/20 07/18/20 05:45 06:00 06:15 Temperature Pulse Rate 105 H 104 H 105 H Pulse Rate [ From Monitor] Respiratory 13 12 12 Rate Blood Pressure 82/55 96/54 83/55 O2 Sat by Pulse 94 94 94 Oximetry 07/18/20 07/18/20 07/18/20 06:30 06:45 07:00 Temperature Pulse Rate 105 H 105 H 105 H Pulse Rate [ From Monitor] Respiratory 13 12 11 L Rate Blood Pressure 84/54 91/54 82/53 O2 Sat by Pulse 94 94 94 Oximetry 07/18/20 07/18/20 07/18/20 07:15 07:30 07:45 Temperature 99.6 F Pulse Rate 100 H 105 H 106 H Pulse Rate [ From Monitor] Respiratory 12 12 12 Rate Blood Pressure 88/53 94/58 88/54 O2 Sat by Pulse 94 94 93 Oximetry 07/18/20 07/18/20 07/18/20 08:00 08:15 08:20 Temperature Pulse Rate 104 H 105 H 106 H Pulse Rate [ From Monitor] Respiratory 12 20 Rate Blood Pressure 88/53 109/43 88/53 O2 Sat by Pulse 93 93 95 Oximetry 07/18/20 07/18/20 07/18/20 08:30 08:45 09:00 Temperature Pulse Rate 104 H 104 H 106 H Pulse Rate [ From Monitor] Respiratory 12 13 16 Rate Blood Pressure 98/56 89/55 92/52 O2 Sat by Pulse 93 94 94 Oximetry 07/18/20 07/18/20 07/18/20 09:15 09:30 09:45 Temperature Pulse Rate 107 H 108 H 108 H Pulse Rate [ From Monitor] Respiratory 13 15 13 Rate Blood Pressure 86/56 86/53 90/45 O2 Sat by Pulse 94 93 93 Oximetry 07/18/20 07/18/20 07/18/20 10:00 10:15 10:30 Temperature Pulse Rate 110 H 110 H 109 H Pulse Rate [ From Monitor] Respiratory 18 15 22 Rate Blood Pressure 94/55 86/51 103/46 O2 Sat by Pulse 93 93 93 Oximetry 07/18/20 07/18/20 07/18/20 10:45 11:00 11:15 Temperature Pulse Rate 111 H 112 H 111 H Pulse Rate [ From Monitor] Respiratory 12 13 20 Rate Blood Pressure 94/57 97/55 90/53 O2 Sat by Pulse 92 92 92 Oximetry 07/18/20 07/18/20 07/18/20 11:30 11:45 12:00 Temperature 100.5 F H Pulse Rate 112 H 114 H 115 H Pulse Rate [ From Monitor] Respiratory 18 30 H 27 H Rate Blood Pressure 87/51 96/57 86/53 O2 Sat by Pulse 93 93 93 Oximetry 07/18/20 12:29 Temperature 100.5 F H Pulse Rate Pulse Rate [ From Monitor] Respiratory Rate Blood Pressure O2 Sat by Pulse Oximetry Constitutional: other (onvent orally intubated) Eyes: non-icteric Neck: supple Ascultation: Bilateral: diminished breath sounds (rare rhonchi), rhonchi (rare) Cardiovascular: regular rate and rhythm Gastrointestinal: normoactive bowel sounds, soft, non-tender Neurologic: other (on vent) CBC and BMP: 07/18/20 04:45 07/18/20 04:45 ABG, PT/INR, D-dimer: ABG ABG pH Cancelled 07/18/20 04:19 POC ABG pCO2 61.9 mmHg (32.0-48.0) H 07/18/20 04:19 ABG pCO2 Cancelled 07/18/20 04:19 POC ABG pO2 72.1 mmHg (83-108) L 07/18/20 04:19 ABG pO2 Cancelled 07/18/20 04:19 POC ABG HCO3 27.3 07/18/20 04:19 ABG O2 Saturation Cancelled 07/18/20 04:19 PT/INR, D-dimer PT 15.0 Sec. (12.2-14.9) H 07/17/20 18:20 INR 1.20 (0.87-1.13) H 07/17/20 18:20 D-Dimer 1786.87 ng/mlDDU (0-234) H 07/10/20 05:25 Abnormal lab findings: Abnormal Labs 07/06/20 07/06/20 07/06/20 08:50 08:50 08:50 WBC RBC Hgb Hct MCV 78 L MCH 26 L RDW Plt Count Lymph % (Auto) Lymph # (Auto) Giles # (Auto) Seg Neutrophils % Seg Neuts % (Manual) 80.0 H Lymphocytes % (Manual) 10.0 L Nucleated RBC % 4.0 H Seg Neutrophils # Seg Neutrophils # Man Lymphocytes # (Manual) 0.9 L PT INR 1.15 H APTT D-Dimer 1435.13 H Heparin Anti-Xa Level ABG pH POC ABG pCO2 POC ABG pO2 ABG pO2 ABG O2 Saturation ABG Base Excess ABG Hemoglobin ABG Oxyhemoglobin ABG Potassium ABG Chloride ABG Glucose Oxyhemoglobin Carboxyhemoglobin Sodium 136 L Potassium Chloride Carbon Dioxide BUN 45 H Creatinine 1.6 H Glucose 385 H POC Glucose Hemoglobin A1c Lactic Acid Calcium Ferritin Alkaline Phosphatase 130 H Lactate Dehydrogenase Troponin T 0.034 H C-Reactive Protein Albumin 3.2 L Triglycerides Arterial Blood Glucose Urine WBC (Auto) Urine Creatinine Coronavirus (PCR) 07/06/20 07/06/20 07/06/20 08:50 08:50 08:50 WBC RBC Hgb Hct MCV MCH RDW Plt Count Lymph % (Auto) Lymph # (Auto) Giles # (Auto) Seg Neutrophils % Seg Neuts % (Manual) Lymphocytes % (Manual) Nucleated RBC % Seg Neutrophils # Seg Neutrophils # Man Lymphocytes # (Manual) PT INR APTT D-Dimer Heparin Anti-Xa Level ABG pH POC ABG pCO2 POC ABG pO2 ABG pO2 ABG O2 Saturation ABG Base Excess ABG Hemoglobin ABG Oxyhemoglobin ABG Potassium ABG Chloride ABG Glucose Oxyhemoglobin Carboxyhemoglobin Sodium Potassium Chloride Carbon Dioxide BUN Creatinine Glucose 385 H POC Glucose Hemoglobin A1c Lactic Acid 2.30 H* Calcium Ferritin 1158.0 H Alkaline Phosphatase Lactate Dehydrogenase 471 H Troponin T C-Reactive Protein 10.40 H Albumin Triglycerides Arterial Blood Glucose Urine WBC (Auto) Urine Creatinine Coronavirus (PCR) 07/06/20 07/06/20 07/06/20 09:26 15:44 15:44 WBC RBC Hgb Hct MCV MCH RDW Plt Count Lymph % (Auto) Lymph # (Auto) Giles # (Auto) Seg Neutrophils % Seg Neuts % (Manual) Lymphocytes % (Manual) Nucleated RBC % Seg Neutrophils # Seg Neutrophils # Man Lymphocytes # (Manual) PT INR APTT D-Dimer Heparin Anti-Xa Level ABG pH POC ABG pCO2 POC ABG pO2 ABG pO2 ABG O2 Saturation ABG Base Excess ABG Hemoglobin ABG Oxyhemoglobin ABG Potassium ABG Chloride ABG Glucose Oxyhemoglobin Carboxyhemoglobin Sodium Potassium Chloride Carbon Dioxide BUN Creatinine Glucose POC Glucose Hemoglobin A1c 11.8 H Lactic Acid 2.40 H* Calcium Ferritin Alkaline Phosphatase Lactate Dehydrogenase Troponin T C-Reactive Protein Albumin Triglycerides Arterial Blood Glucose Urine WBC (Auto) Urine Creatinine Coronavirus (PCR) Positive A 07/06/20 07/06/20 07/06/20 15:44 17:40 20:35 WBC RBC Hgb Hct MCV MCH RDW Plt Count Lymph % (Auto) Lymph # (Auto) Giles # (Auto) Seg Neutrophils % Seg Neuts % (Manual) Lymphocytes % (Manual) Nucleated RBC % Seg Neutrophils # Seg Neutrophils # Man Lymphocytes # (Manual) PT INR APTT D-Dimer Heparin Anti-Xa Level ABG pH 7.455 H POC ABG pCO2 30.9 L POC ABG pO2 50.0 L ABG pO2 ABG O2 Saturation ABG Base Excess ABG Hemoglobin 11.1 L ABG Oxyhemoglobin 80.6 L ABG Potassium ABG Chloride ABG Glucose 357 H Oxyhemoglobin Carboxyhemoglobin 0.3 L Sodium Potassium Chloride Carbon Dioxide BUN Creatinine Glucose POC Glucose 324 H Hemoglobin A1c Lactic Acid Calcium Ferritin Alkaline Phosphatase Lactate Dehydrogenase 683 H Troponin T C-Reactive Protein Albumin Triglycerides Arterial Blood Glucose 357 H Urine WBC (Auto) Urine Creatinine Coronavirus (PCR) 07/06/20 07/06/20 07/07/20 21:49 23:52 02:19 WBC RBC Hgb Hct MCV MCH RDW Plt Count Lymph % (Auto) Lymph # (Auto) Giles # (Auto) Seg Neutrophils % Seg Neuts % (Manual) Lymphocytes % (Manual) Nucleated RBC % Seg Neutrophils # Seg Neutrophils # Man Lymphocytes # (Manual) PT INR APTT D-Dimer Heparin Anti-Xa Level ABG pH 7.455 H POC ABG pCO2 31.9 L POC ABG pO2 50.7 L 62.0 L ABG pO2 ABG O2 Saturation ABG Base Excess ABG Hemoglobin 10.8 L 10.8 L ABG Oxyhemoglobin 80.2 L 88.3 L ABG Potassium ABG Chloride ABG Glucose 358 H 330 H Oxyhemoglobin Carboxyhemoglobin 0.2 L 0.2 L Sodium Potassium Chloride Carbon Dioxide BUN Creatinine Glucose POC Glucose 336 H Hemoglobin A1c Lactic Acid Calcium Ferritin Alkaline Phosphatase Lactate Dehydrogenase Troponin T C-Reactive Protein Albumin Triglycerides Arterial Blood Glucose 358 H 330 H Urine WBC (Auto) Urine Creatinine Coronavirus (PCR) 07/07/20 07/07/20 07/07/20 02:42 02:42 07:54 WBC RBC Hgb Hct MCV MCH 26 L RDW Plt Count Lymph % (Auto) Lymph # (Auto) Giles # (Auto) Seg Neutrophils % Seg Neuts % (Manual) 85.0 H Lymphocytes % (Manual) 6.0 L Nucleated RBC % Seg Neutrophils # Seg Neutrophils # Man 7.9 H Lymphocytes # (Manual) 0.6 L PT INR APTT D-Dimer Heparin Anti-Xa Level ABG pH POC ABG pCO2 POC ABG pO2 ABG pO2 ABG O2 Saturation ABG Base Excess ABG Hemoglobin ABG Oxyhemoglobin ABG Potassium ABG Chloride ABG Glucose Oxyhemoglobin Carboxyhemoglobin Sodium Potassium Chloride Carbon Dioxide BUN 47 H Creatinine 1.3 H Glucose 336 H POC Glucose 289 H Hemoglobin A1c Lactic Acid Calcium Ferritin Alkaline Phosphatase Lactate Dehydrogenase Troponin T C-Reactive Protein Albumin Triglycerides Arterial Blood Glucose Urine WBC (Auto) Urine Creatinine Coronavirus (PCR) 07/07/20 07/07/20 07/07/20 11:07 15:40 23:27 WBC RBC Hgb Hct MCV MCH RDW Plt Count Lymph % (Auto) Lymph # (Auto) Giles # (Auto) Seg Neutrophils % Seg Neuts % (Manual) Lymphocytes % (Manual) Nucleated RBC % Seg Neutrophils # Seg Neutrophils # Man Lymphocytes # (Manual) PT INR APTT D-Dimer Heparin Anti-Xa Level ABG pH POC ABG pCO2 POC ABG pO2 ABG pO2 ABG O2 Saturation ABG Base Excess ABG Hemoglobin ABG Oxyhemoglobin ABG Potassium ABG Chloride ABG Glucose Oxyhemoglobin Carboxyhemoglobin Sodium Potassium Chloride Carbon Dioxide BUN Creatinine Glucose POC Glucose 322 H 346 H 274 H Hemoglobin A1c Lactic Acid Calcium Ferritin Alkaline Phosphatase Lactate Dehydrogenase Troponin T C-Reactive Protein Albumin Triglycerides Arterial Blood Glucose Urine WBC (Auto) Urine Creatinine Coronavirus (PCR) 07/08/20 07/08/20 07/08/20 02:39 05:07 05:07 WBC RBC Hgb Hct MCV MCH RDW Plt Count Lymph % (Auto) Lymph # (Auto) Giles # (Auto) Seg Neutrophils % Seg Neuts % (Manual) Lymphocytes % (Manual) Nucleated RBC % Seg Neutrophils # Seg Neutrophils # Man Lymphocytes # (Manual) PT INR APTT D-Dimer 2542.57 H Heparin Anti-Xa Level ABG pH 7.487 H POC ABG pCO2 POC ABG pO2 52.5 L ABG pO2 ABG O2 Saturation ABG Base Excess ABG Hemoglobin 11.8 L ABG Oxyhemoglobin ABG Potassium ABG Chloride ABG Glucose 336 H Oxyhemoglobin Carboxyhemoglobin Sodium Potassium Chloride Carbon Dioxide BUN 51 H Creatinine Glucose 326 H POC Glucose Hemoglobin A1c Lactic Acid Calcium Ferritin Alkaline Phosphatase Lactate Dehydrogenase Troponin T C-Reactive Protein 4.30 H Albumin 3.2 L Triglycerides Arterial Blood Glucose 336 H Urine WBC (Auto) Urine Creatinine Coronavirus (PCR) 07/08/20 07/08/20 07/08/20 05:07 05:07 05:21 WBC RBC Hgb Hct MCV MCH 25 L RDW Plt Count Lymph % (Auto) 7.9 L Lymph # (Auto) 0.6 L Giles # (Auto) Seg Neutrophils % 85.6 H Seg Neuts % (Manual) Lymphocytes % (Manual) Nucleated RBC % Seg Neutrophils # Seg Neutrophils # Man Lymphocytes # (Manual) PT INR APTT D-Dimer Heparin Anti-Xa Level ABG pH POC ABG pCO2 POC ABG pO2 ABG pO2 ABG O2 Saturation ABG Base Excess ABG Hemoglobin ABG Oxyhemoglobin ABG Potassium ABG Chloride ABG Glucose Oxyhemoglobin Carboxyhemoglobin Sodium Potassium Chloride Carbon Dioxide BUN Creatinine Glucose POC Glucose 293 H Hemoglobin A1c Lactic Acid Calcium Ferritin 975.6 H Alkaline Phosphatase Lactate Dehydrogenase Troponin T C-Reactive Protein Albumin Triglycerides Arterial Blood Glucose Urine WBC (Auto) Urine Creatinine Coronavirus (PCR) 07/08/20 07/08/20 07/08/20 08:59 11:39 17:57 WBC RBC Hgb Hct MCV MCH RDW Plt Count Lymph % (Auto) Lymph # (Auto) Giles # (Auto) Seg Neutrophils % Seg Neuts % (Manual) Lymphocytes % (Manual) Nucleated RBC % Seg Neutrophils # Seg Neutrophils # Man Lymphocytes # (Manual) PT INR APTT D-Dimer Heparin Anti-Xa Level ABG pH POC ABG pCO2 POC ABG pO2 ABG pO2 ABG O2 Saturation ABG Base Excess ABG Hemoglobin ABG Oxyhemoglobin ABG Potassium ABG Chloride ABG Glucose Oxyhemoglobin Carboxyhemoglobin Sodium Potassium Chloride Carbon Dioxide BUN Creatinine Glucose POC Glucose 270 H 285 H 221 H Hemoglobin A1c Lactic Acid Calcium Ferritin Alkaline Phosphatase Lactate Dehydrogenase Troponin T C-Reactive Protein Albumin Triglycerides Arterial Blood Glucose Urine WBC (Auto) Urine Creatinine Coronavirus (PCR) 07/08/20 07/08/20 07/09/20 21:26 23:29 05:29 WBC RBC Hgb Hct MCV MCH RDW Plt Count Lymph % (Auto) Lymph # (Auto) Giles # (Auto) Seg Neutrophils % Seg Neuts % (Manual) Lymphocytes % (Manual) Nucleated RBC % Seg Neutrophils # Seg Neutrophils # Man Lymphocytes # (Manual) PT INR APTT D-Dimer Heparin Anti-Xa Level ABG pH POC ABG pCO2 POC ABG pO2 ABG pO2 ABG O2 Saturation ABG Base Excess ABG Hemoglobin ABG Oxyhemoglobin ABG Potassium ABG Chloride ABG Glucose Oxyhemoglobin Carboxyhemoglobin Sodium Potassium Chloride Carbon Dioxide BUN Creatinine Glucose POC Glucose 232 H 231 H 196 H Hemoglobin A1c Lactic Acid Calcium Ferritin Alkaline Phosphatase Lactate Dehydrogenase Troponin T C-Reactive Protein Albumin Triglycerides Arterial Blood Glucose Urine WBC (Auto) Urine Creatinine Coronavirus (PCR) 07/09/20 07/09/20 07/09/20 06:51 06:51 12:10 WBC RBC Hgb Hct MCV MCH 26 L RDW Plt Count Lymph % (Auto) 4.3 L Lymph # (Auto) 0.4 L Giles # (Auto) Seg Neutrophils % Seg Neuts % (Manual) Lymphocytes % (Manual) 1.0 L Nucleated RBC % Seg Neutrophils # 9.1 H Seg Neutrophils # Man 9.8 H Lymphocytes # (Manual) 0.1 L PT INR APTT D-Dimer Heparin Anti-Xa Level ABG pH POC ABG pCO2 POC ABG pO2 ABG pO2 ABG O2 Saturation ABG Base Excess ABG Hemoglobin ABG Oxyhemoglobin ABG Potassium ABG Chloride ABG Glucose Oxyhemoglobin Carboxyhemoglobin Sodium 147 H Potassium Chloride 111.9 H Carbon Dioxide BUN 52 H Creatinine Glucose 207 H POC Glucose 176 H Hemoglobin A1c Lactic Acid Calcium Ferritin Alkaline Phosphatase Lactate Dehydrogenase Troponin T C-Reactive Protein Albumin 3.2 L Triglycerides Arterial Blood Glucose Urine WBC (Auto) Urine Creatinine Coronavirus (PCR) 07/09/20 07/09/20 07/10/20 17:49 23:36 05:17 WBC RBC Hgb Hct MCV MCH RDW Plt Count Lymph % (Auto) Lymph # (Auto) Giles # (Auto) Seg Neutrophils % Seg Neuts % (Manual) Lymphocytes % (Manual) Nucleated RBC % Seg Neutrophils # Seg Neutrophils # Man Lymphocytes # (Manual) PT INR APTT D-Dimer Heparin Anti-Xa Level ABG pH POC ABG pCO2 POC ABG pO2 ABG pO2 ABG O2 Saturation ABG Base Excess ABG Hemoglobin ABG Oxyhemoglobin ABG Potassium ABG Chloride ABG Glucose Oxyhemoglobin Carboxyhemoglobin Sodium Potassium Chloride Carbon Dioxide BUN Creatinine Glucose POC Glucose 196 H 154 H 178 H Hemoglobin A1c Lactic Acid Calcium Ferritin Alkaline Phosphatase Lactate Dehydrogenase Troponin T C-Reactive Protein Albumin Triglycerides Arterial Blood Glucose Urine WBC (Auto) Urine Creatinine Coronavirus (PCR) 07/10/20 07/10/20 07/10/20 05:25 05:25 05:25 WBC RBC Hgb Hct MCV MCH RDW Plt Count Lymph % (Auto) Lymph # (Auto) Giles # (Auto) Seg Neutrophils % Seg Neuts % (Manual) Lymphocytes % (Manual) Nucleated RBC % Seg Neutrophils # Seg Neutrophils # Man Lymphocytes # (Manual) PT INR APTT D-Dimer 1786.87 H Heparin Anti-Xa Level ABG pH POC ABG pCO2 POC ABG pO2 ABG pO2 ABG O2 Saturation ABG Base Excess ABG Hemoglobin ABG Oxyhemoglobin ABG Potassium ABG Chloride ABG Glucose Oxyhemoglobin Carboxyhemoglobin Sodium 152 H Potassium Chloride 112.8 H Carbon Dioxide BUN 60 H Creatinine Glucose 204 H POC Glucose Hemoglobin A1c Lactic Acid Calcium Ferritin 920.8 H Alkaline Phosphatase Lactate Dehydrogenase Troponin T C-Reactive Protein 2.80 H Albumin 3.3 L Triglycerides Arterial Blood Glucose Urine WBC (Auto) Urine Creatinine Coronavirus (PCR) 07/10/20 07/10/20 07/10/20 05:25 12:39 17:56 WBC RBC Hgb Hct MCV MCH 27 L RDW Plt Count Lymph % (Auto) Lymph # (Auto) Giles # (Auto) Seg Neutrophils % Seg Neuts % (Manual) 92.0 H Lymphocytes % (Manual) 3.0 L Nucleated RBC % Seg Neutrophils # Seg Neutrophils # Man 9.5 H Lymphocytes # (Manual) 0.3 L PT INR APTT D-Dimer Heparin Anti-Xa Level ABG pH POC ABG pCO2 POC ABG pO2 ABG pO2 ABG O2 Saturation ABG Base Excess ABG Hemoglobin ABG Oxyhemoglobin ABG Potassium ABG Chloride ABG Glucose Oxyhemoglobin Carboxyhemoglobin Sodium Potassium Chloride Carbon Dioxide BUN Creatinine Glucose POC Glucose 174 H 177 H Hemoglobin A1c Lactic Acid Calcium Ferritin Alkaline Phosphatase Lactate Dehydrogenase Troponin T C-Reactive Protein Albumin Triglycerides Arterial Blood Glucose Urine WBC (Auto) Urine Creatinine Coronavirus (PCR) 07/10/20 07/11/20 07/11/20 23:13 05:20 06:08 WBC RBC Hgb Hct MCV MCH RDW Plt Count Lymph % (Auto) Lymph # (Auto) Giles # (Auto) Seg Neutrophils % Seg Neuts % (Manual) Lymphocytes % (Manual) Nucleated RBC % Seg Neutrophils # Seg Neutrophils # Man Lymphocytes # (Manual) PT INR APTT D-Dimer Heparin Anti-Xa Level ABG pH POC ABG pCO2 POC ABG pO2 ABG pO2 ABG O2 Saturation ABG Base Excess ABG Hemoglobin ABG Oxyhemoglobin ABG Potassium ABG Chloride ABG Glucose Oxyhemoglobin Carboxyhemoglobin Sodium 159 H Potassium Chloride 120.9 H Carbon Dioxide BUN 57 H Creatinine Glucose 162 H POC Glucose 107 H 129 H Hemoglobin A1c Lactic Acid Calcium Ferritin Alkaline Phosphatase Lactate Dehydrogenase Troponin T C-Reactive Protein Albumin 3.0 L Triglycerides Arterial Blood Glucose Urine WBC (Auto) Urine Creatinine Coronavirus (PCR) 07/11/20 07/11/20 07/11/20 12:08 17:21 23:20 WBC RBC Hgb Hct MCV MCH RDW Plt Count Lymph % (Auto) Lymph # (Auto) Giles # (Auto) Seg Neutrophils % Seg Neuts % (Manual) Lymphocytes % (Manual) Nucleated RBC % Seg Neutrophils # Seg Neutrophils # Man Lymphocytes # (Manual) PT INR APTT D-Dimer Heparin Anti-Xa Level ABG pH POC ABG pCO2 POC ABG pO2 ABG pO2 ABG O2 Saturation ABG Base Excess ABG Hemoglobin ABG Oxyhemoglobin ABG Potassium ABG Chloride ABG Glucose Oxyhemoglobin Carboxyhemoglobin Sodium Potassium Chloride Carbon Dioxide BUN Creatinine Glucose POC Glucose 238 H 240 H 176 H Hemoglobin A1c Lactic Acid Calcium Ferritin Alkaline Phosphatase Lactate Dehydrogenase Troponin T C-Reactive Protein Albumin Triglycerides Arterial Blood Glucose Urine WBC (Auto) Urine Creatinine Coronavirus (PCR) 07/12/20 07/12/20 07/12/20 01:55 05:16 05:18 WBC 12.6 H RBC Hgb Hct MCV MCH 26 L RDW Plt Count Lymph % (Auto) Lymph # (Auto) Giles # (Auto) Seg Neutrophils % Seg Neuts % (Manual) 93.0 H Lymphocytes % (Manual) 4.0 L Nucleated RBC % Seg Neutrophils # Seg Neutrophils # Man 11.7 H Lymphocytes # (Manual) 0.5 L PT INR APTT D-Dimer Heparin Anti-Xa Level ABG pH POC ABG pCO2 POC ABG pO2 ABG pO2 ABG O2 Saturation ABG Base Excess ABG Hemoglobin ABG Oxyhemoglobin ABG Potassium ABG Chloride ABG Glucose Oxyhemoglobin Carboxyhemoglobin Sodium 151 H D Potassium Chloride 115.5 H Carbon Dioxide BUN 52 H Creatinine Glucose 250 H POC Glucose 202 H Hemoglobin A1c Lactic Acid Calcium Ferritin Alkaline Phosphatase Lactate Dehydrogenase Troponin T C-Reactive Protein Albumin Triglycerides Arterial Blood Glucose Urine WBC (Auto) Urine Creatinine Coronavirus (PCR) 07/12/20 07/12/20 07/12/20 05:18 11:50 17:25 WBC RBC Hgb Hct MCV MCH RDW Plt Count Lymph % (Auto) Lymph # (Auto) Giles # (Auto) Seg Neutrophils % Seg Neuts % (Manual) Lymphocytes % (Manual) Nucleated RBC % Seg Neutrophils # Seg Neutrophils # Man Lymphocytes # (Manual) PT INR APTT D-Dimer Heparin Anti-Xa Level ABG pH POC ABG pCO2 POC ABG pO2 ABG pO2 ABG O2 Saturation ABG Base Excess ABG Hemoglobin ABG Oxyhemoglobin ABG Potassium ABG Chloride ABG Glucose Oxyhemoglobin Carboxyhemoglobin Sodium 152 H Potassium Chloride 113.7 H Carbon Dioxide BUN 50 H Creatinine Glucose 232 H POC Glucose 218 H 130 H Hemoglobin A1c Lactic Acid Calcium Ferritin Alkaline Phosphatase Lactate Dehydrogenase Troponin T C-Reactive Protein Albumin Triglycerides Arterial Blood Glucose Urine WBC (Auto) Urine Creatinine Coronavirus (PCR) 07/12/20 07/13/20 07/13/20 23:17 04:39 04:39 WBC RBC Hgb Hct MCV MCH 26 L RDW Plt Count Lymph % (Auto) Lymph # (Auto) Giles # (Auto) Seg Neutrophils % Seg Neuts % (Manual) Lymphocytes % (Manual) Nucleated RBC % Seg Neutrophils # Seg Neutrophils # Man Lymphocytes # (Manual) PT INR APTT D-Dimer Heparin Anti-Xa Level ABG pH POC ABG pCO2 POC ABG pO2 ABG pO2 ABG O2 Saturation ABG Base Excess ABG Hemoglobin ABG Oxyhemoglobin ABG Potassium ABG Chloride ABG Glucose Oxyhemoglobin Carboxyhemoglobin Sodium Potassium Chloride 109.4 H Carbon Dioxide BUN 44 H Creatinine Glucose 281 H POC Glucose 161 H Hemoglobin A1c Lactic Acid Calcium Ferritin Alkaline Phosphatase Lactate Dehydrogenase Troponin T C-Reactive Protein Albumin Triglycerides Arterial Blood Glucose Urine WBC (Auto) Urine Creatinine Coronavirus (PCR) 02/07/13/20 07/13/20 05:16 11:56 15:50 WBC RBC Hgb Hct MCV MCH RDW Plt Count Lymph % (Auto) Lymph # (Auto) Giles # (Auto) Seg Neutrophils % Seg Neuts % (Manual) Lymphocytes % (Manual) Nucleated RBC % Seg Neutrophils # Seg Neutrophils # Man Lymphocytes # (Manual) PT INR APTT D-Dimer Heparin Anti-Xa Level ABG pH POC ABG pCO2 POC ABG pO2 ABG pO2 73.7 L ABG O2 Saturation 94.5 L ABG Base Excess -2.9 L ABG Hemoglobin 9.6 L ABG Oxyhemoglobin ABG Potassium ABG Chloride ABG Glucose Oxyhemoglobin 92.8 L Carboxyhemoglobin Sodium Potassium Chloride Carbon Dioxide BUN Creatinine Glucose POC Glucose 210 H 229 H Hemoglobin A1c Lactic Acid Calcium Ferritin Alkaline Phosphatase Lactate Dehydrogenase Troponin T C-Reactive Protein Albumin Triglycerides Arterial Blood Glucose Urine WBC (Auto) Urine Creatinine Coronavirus (PCR) 07/13/20 07/13/20 07/14/20 17:35 23:29 03:57 WBC RBC Hgb Hct MCV MCH RDW Plt Count Lymph % (Auto) Lymph # (Auto) Giles # (Auto) Seg Neutrophils % Seg Neuts % (Manual) Lymphocytes % (Manual) Nucleated RBC % Seg Neutrophils # Seg Neutrophils # Man Lymphocytes # (Manual) PT INR APTT D-Dimer Heparin Anti-Xa Level ABG pH POC ABG pCO2 POC ABG pO2 63.2 L ABG pO2 ABG O2 Saturation ABG Base Excess ABG Hemoglobin 11.8 L ABG Oxyhemoglobin ABG Potassium ABG Chloride ABG Glucose 148 H Oxyhemoglobin Carboxyhemoglobin Sodium Potassium Chloride Carbon Dioxide BUN Creatinine Glucose POC Glucose 277 H 173 H Hemoglobin A1c Lactic Acid Calcium Ferritin Alkaline Phosphatase Lactate Dehydrogenase Troponin T C-Reactive Protein Albumin Triglycerides Arterial Blood Glucose 148 H Urine WBC (Auto) Urine Creatinine Coronavirus (PCR) 07/14/20 07/14/20 07/14/20 04:31 04:31 05:11 WBC RBC Hgb Hct MCV MCH 26 L RDW Plt Count 134 L Lymph % (Auto) Lymph # (Auto) Giles # (Auto) Seg Neutrophils % Seg Neuts % (Manual) Lymphocytes % (Manual) Nucleated RBC % Seg Neutrophils # Seg Neutrophils # Man Lymphocytes # (Manual) PT INR APTT D-Dimer Heparin Anti-Xa Level ABG pH POC ABG pCO2 POC ABG pO2 ABG pO2 ABG O2 Saturation ABG Base Excess ABG Hemoglobin ABG Oxyhemoglobin ABG Potassium ABG Chloride ABG Glucose Oxyhemoglobin Carboxyhemoglobin Sodium Potassium Chloride Carbon Dioxide 21 L BUN 66 H Creatinine Glucose 139 H POC Glucose 126 H Hemoglobin A1c Lactic Acid Calcium Ferritin Alkaline Phosphatase Lactate Dehydrogenase Troponin T C-Reactive Protein Albumin Triglycerides Arterial Blood Glucose Urine WBC (Auto) Urine Creatinine Coronavirus (PCR) 07/14/20 07/14/20 07/14/20 11:54 17:44 21:25 WBC RBC Hgb Hct MCV MCH RDW Plt Count Lymph % (Auto) Lymph # (Auto) Giles # (Auto) Seg Neutrophils % Seg Neuts % (Manual) Lymphocytes % (Manual) Nucleated RBC % Seg Neutrophils # Seg Neutrophils # Man Lymphocytes # (Manual) PT INR APTT D-Dimer Heparin Anti-Xa Level ABG pH POC ABG pCO2 POC ABG pO2 64.8 L ABG pO2 ABG O2 Saturation ABG Base Excess ABG Hemoglobin 11.9 L ABG Oxyhemoglobin 86.8 L ABG Potassium ABG Chloride ABG Glucose 296 H Oxyhemoglobin Carboxyhemoglobin Sodium Potassium Chloride Carbon Dioxide BUN Creatinine Glucose POC Glucose 181 H 274 H Hemoglobin A1c Lactic Acid Calcium Ferritin Alkaline Phosphatase Lactate Dehydrogenase Troponin T C-Reactive Protein Albumin Triglycerides Arterial Blood Glucose 296 H Urine WBC (Auto) Urine Creatinine Coronavirus (PCR) 07/14/20 07/15/20 07/15/20 23:20 03:09 05:32 WBC RBC Hgb Hct MCV MCH RDW Plt Count Lymph % (Auto) Lymph # (Auto) Giles # (Auto) Seg Neutrophils % Seg Neuts % (Manual) Lymphocytes % (Manual) Nucleated RBC % Seg Neutrophils # Seg Neutrophils # Man Lymphocytes # (Manual) PT INR APTT D-Dimer Heparin Anti-Xa Level ABG pH 7.280 L POC ABG pCO2 POC ABG pO2 57.7 L ABG pO2 ABG O2 Saturation ABG Base Excess ABG Hemoglobin 11.8 L ABG Oxyhemoglobin 79.3 L ABG Potassium 4.6 H ABG Chloride ABG Glucose 340 H Oxyhemoglobin Carboxyhemoglobin Sodium Potassium Chloride Carbon Dioxide BUN Creatinine Glucose POC Glucose 271 H 339 H Hemoglobin A1c Lactic Acid Calcium Ferritin Alkaline Phosphatase Lactate Dehydrogenase Troponin T C-Reactive Protein Albumin Triglycerides Arterial Blood Glucose 340 H Urine WBC (Auto) Urine Creatinine Coronavirus (PCR) 0207/15/20 07/15/20 11:39 17:41 20:12 WBC RBC Hgb Hct MCV MCH RDW Plt Count Lymph % (Auto) Lymph # (Auto) Giles # (Auto) Seg Neutrophils % Seg Neuts % (Manual) Lymphocytes % (Manual) Nucleated RBC % Seg Neutrophils # Seg Neutrophils # Man Lymphocytes # (Manual) PT INR APTT D-Dimer Heparin Anti-Xa Level ABG pH 7.091 L POC ABG pCO2 62.2 H POC ABG pO2 ABG pO2 ABG O2 Saturation ABG Base Excess ABG Hemoglobin ABG Oxyhemoglobin 89.8 L ABG Potassium ABG Chloride ABG Glucose 493 H Oxyhemoglobin Carboxyhemoglobin Sodium Potassium Chloride Carbon Dioxide BUN Creatinine Glucose POC Glucose 388 H 414 H Hemoglobin A1c Lactic Acid Calcium Ferritin Alkaline Phosphatase Lactate Dehydrogenase Troponin T C-Reactive Protein Albumin Triglycerides Arterial Blood Glucose 493 H Urine WBC (Auto) Urine Creatinine Coronavirus (PCR) 07/15/20 07/15/20 07/15/20 22:14 22:14 23:48 WBC RBC Hgb Hct MCV MCH RDW Plt Count Lymph % (Auto) Lymph # (Auto) Giles # (Auto) Seg Neutrophils % Seg Neuts % (Manual) Lymphocytes % (Manual) Nucleated RBC % Seg Neutrophils # Seg Neutrophils # Man Lymphocytes # (Manual) PT INR APTT D-Dimer Heparin Anti-Xa Level ABG pH 7.132 L POC ABG pCO2 55.9 H POC ABG pO2 79.1 L ABG pO2 ABG O2 Saturation ABG Base Excess ABG Hemoglobin ABG Oxyhemoglobin 89.8 L ABG Potassium 4.6 H ABG Chloride ABG Glucose 528 H Oxyhemoglobin Carboxyhemoglobin Sodium Potassium Chloride Carbon Dioxide 18 L BUN 107 H Creatinine 1.8 H Glucose 523 H* POC Glucose 479 H Hemoglobin A1c Lactic Acid Calcium 8.0 L Ferritin Alkaline Phosphatase Lactate Dehydrogenase Troponin T C-Reactive Protein Albumin Triglycerides Arterial Blood Glucose 528 H Urine WBC (Auto) Urine Creatinine Coronavirus (PCR) 07/16/20 07/16/20 07/16/20 04:00 05:09 11:14 WBC 21.2 H RBC Hgb Hct MCV MCH 26 L RDW Plt Count 121 L Lymph % (Auto) Lymph # (Auto) Giles # (Auto) Seg Neutrophils % Seg Neuts % (Manual) Lymphocytes % (Manual) Nucleated RBC % Seg Neutrophils # Seg Neutrophils # Man Lymphocytes # (Manual) PT INR APTT D-Dimer Heparin Anti-Xa Level ABG pH 7.096 L POC ABG pCO2 68.5 H POC ABG pO2 79.7 L ABG pO2 ABG O2 Saturation ABG Base Excess ABG Hemoglobin ABG Oxyhemoglobin ABG Potassium 5.0 H ABG Chloride 108.0 H ABG Glucose 385 H Oxyhemoglobin Carboxyhemoglobin Sodium Potassium Chloride Carbon Dioxide BUN Creatinine Glucose POC Glucose 347 H Hemoglobin A1c Lactic Acid Calcium Ferritin Alkaline Phosphatase Lactate Dehydrogenase Troponin T C-Reactive Protein Albumin Triglycerides Arterial Blood Glucose 385 H Urine WBC (Auto) Urine Creatinine Coronavirus (PCR) 07/16/20 07/16/20 07/16/20 11:30 11:30 12:01 WBC RBC Hgb Hct MCV MCH RDW Plt Count Lymph % (Auto) Lymph # (Auto) Giles # (Auto) Seg Neutrophils % Seg Neuts % (Manual) Lymphocytes % (Manual) Nucleated RBC % Seg Neutrophils # Seg Neutrophils # Man Lymphocytes # (Manual) PT INR APTT D-Dimer Heparin Anti-Xa Level ABG pH POC ABG pCO2 POC ABG pO2 ABG pO2 ABG O2 Saturation ABG Base Excess ABG Hemoglobin ABG Oxyhemoglobin ABG Potassium ABG Chloride ABG Glucose Oxyhemoglobin Carboxyhemoglobin Sodium Potassium Chloride Carbon Dioxide BUN Creatinine Glucose POC Glucose 206 H Hemoglobin A1c Lactic Acid Calcium Ferritin Alkaline Phosphatase Lactate Dehydrogenase Troponin T C-Reactive Protein Albumin Triglycerides Arterial Blood Glucose Urine WBC (Auto) 11.0 H Urine Creatinine 149.3 H Coronavirus (PCR) 07/16/20 07/16/20 07/16/20 17:18 23:22 Unknown WBC RBC Hgb Hct MCV MCH RDW Plt Count Lymph % (Auto) Lymph # (Auto) Giles # (Auto) Seg Neutrophils % Seg Neuts % (Manual) Lymphocytes % (Manual) Nucleated RBC % Seg Neutrophils # Seg Neutrophils # Man Lymphocytes # (Manual) PT INR APTT D-Dimer Heparin Anti-Xa Level ABG pH POC ABG pCO2 POC ABG pO2 ABG pO2 ABG O2 Saturation ABG Base Excess ABG Hemoglobin ABG Oxyhemoglobin ABG Potassium ABG Chloride ABG Glucose Oxyhemoglobin Carboxyhemoglobin Sodium Potassium Chloride Carbon Dioxide BUN Creatinine Glucose POC Glucose 199 H 368 H Hemoglobin A1c Lactic Acid Calcium Ferritin Alkaline Phosphatase Lactate Dehydrogenase Troponin T C-Reactive Protein Albumin Triglycerides 215 H Arterial Blood Glucose Urine WBC (Auto) Urine Creatinine Coronavirus (PCR) 07/17/20 07/17/20 07/17/20 05:10 05:10 11:50 WBC RBC Hgb Hct MCV MCH RDW Plt Count Lymph % (Auto) Lymph # (Auto) Giles # (Auto) Seg Neutrophils % Seg Neuts % (Manual) Lymphocytes % (Manual) Nucleated RBC % Seg Neutrophils # Seg Neutrophils # Man Lymphocytes # (Manual) PT INR APTT D-Dimer Heparin Anti-Xa Level ABG pH 7.209 L POC ABG pCO2 62.7 H POC ABG pO2 60.6 L ABG pO2 ABG O2 Saturation ABG Base Excess ABG Hemoglobin 10.7 L ABG Oxyhemoglobin 84 L ABG Potassium ABG Chloride ABG Glucose 450 H Oxyhemoglobin Carboxyhemoglobin Sodium Potassium Chloride Carbon Dioxide BUN Creatinine Glucose POC Glucose 333 H 385 H Hemoglobin A1c Lactic Acid Calcium Ferritin Alkaline Phosphatase Lactate Dehydrogenase Troponin T C-Reactive Protein Albumin Triglycerides Arterial Blood Glucose 450 H Urine WBC (Auto) Urine Creatinine Coronavirus (PCR) 07/17/20 07/17/20 07/17/20 17:30 18:20 23:46 WBC RBC Hgb Hct MCV MCH RDW Plt Count Lymph % (Auto) Lymph # (Auto) Giles # (Auto) Seg Neutrophils % Seg Neuts % (Manual) Lymphocytes % (Manual) Nucleated RBC % Seg Neutrophils # Seg Neutrophils # Man Lymphocytes # (Manual) PT 15.0 H INR 1.20 H APTT 86.4 H* D-Dimer Heparin Anti-Xa Level ABG pH POC ABG pCO2 POC ABG pO2 ABG pO2 ABG O2 Saturation ABG Base Excess ABG Hemoglobin ABG Oxyhemoglobin ABG Potassium ABG Chloride ABG Glucose Oxyhemoglobin Carboxyhemoglobin Sodium Potassium Chloride Carbon Dioxide BUN Creatinine Glucose POC Glucose 418 H 310 H Hemoglobin A1c Lactic Acid Calcium Ferritin Alkaline Phosphatase Lactate Dehydrogenase Troponin T C-Reactive Protein Albumin Triglycerides Arterial Blood Glucose Urine WBC (Auto) Urine Creatinine Coronavirus (PCR) 07/17/20 07/17/20 07/18/20 Unknown Unknown 00:13 WBC 14.1 H RBC Hgb 9.8 L Hct MCV MCH 26 L RDW 15.8 H Plt Count 74 L Lymph % (Auto) Lymph # (Auto) Giles # (Auto) Seg Neutrophils % Seg Neuts % (Manual) Lymphocytes % (Manual) Nucleated RBC % Seg Neutrophils # Seg Neutrophils # Man Lymphocytes # (Manual) PT INR APTT D-Dimer Heparin Anti-Xa Level 1.91 H ABG pH POC ABG pCO2 POC ABG pO2 ABG pO2 ABG O2 Saturation ABG Base Excess ABG Hemoglobin ABG Oxyhemoglobin ABG Potassium ABG Chloride ABG Glucose Oxyhemoglobin Carboxyhemoglobin Sodium 147 H D Potassium Chloride 107.8 H Carbon Dioxide BUN 129 H Creatinine 2.2 H Glucose 471 H POC Glucose Hemoglobin A1c Lactic Acid Calcium 7.8 L Ferritin Alkaline Phosphatase Lactate Dehydrogenase Troponin T C-Reactive Protein Albumin Triglycerides Arterial Blood Glucose Urine WBC (Auto) Urine Creatinine Coronavirus (PCR) 07/18/20 07/18/20 07/18/20 04:19 04:45 04:45 WBC 21.0 H RBC 3.52 L Hgb 9.1 L Hct 28.9 L MCV MCH 26 L RDW 15.6 H Plt Count 94 L Lymph % (Auto) 9.9 L Lymph # (Auto) Giles # (Auto) 1.3 H Seg Neutrophils % 83.6 H Seg Neuts % (Manual) Lymphocytes % (Manual) Nucleated RBC % Seg Neutrophils # 17.6 H Seg Neutrophils # Man Lymphocytes # (Manual) PT INR APTT D-Dimer Heparin Anti-Xa Level ABG pH POC ABG pCO2 61.9 H POC ABG pO2 72.1 L ABG pO2 ABG O2 Saturation ABG Base Excess ABG Hemoglobin ABG Oxyhemoglobin ABG Potassium 4.7 H ABG Chloride ABG Glucose 248 H Oxyhemoglobin Carboxyhemoglobin Sodium 147 H Potassium 5.1 H Chloride 108.0 H Carbon Dioxide 33 H BUN 127 H Creatinine 2.4 H Glucose 256 H POC Glucose Hemoglobin A1c Lactic Acid Calcium 8.3 L Ferritin Alkaline Phosphatase Lactate Dehydrogenase Troponin T C-Reactive Protein Albumin Triglycerides Arterial Blood Glucose 248 H Urine WBC (Auto) Urine Creatinine Coronavirus (PCR) 07/18/20 07/18/20 07/18/20 05:33 08:22 12:00 WBC RBC Hgb Hct MCV MCH RDW Plt Count Lymph % (Auto) Lymph # (Auto) Giles # (Auto) Seg Neutrophils % Seg Neuts % (Manual) Lymphocytes % (Manual) Nucleated RBC % Seg Neutrophils # Seg Neutrophils # Man Lymphocytes # (Manual) PT INR APTT D-Dimer Heparin Anti-Xa Level 1.89 H ABG pH POC ABG pCO2 POC ABG pO2 ABG pO2 ABG O2 Saturation ABG Base Excess ABG Hemoglobin ABG Oxyhemoglobin ABG Potassium ABG Chloride ABG Glucose Oxyhemoglobin Carboxyhemoglobin Sodium Potassium Chloride Carbon Dioxide BUN Creatinine Glucose POC Glucose 238 H 199 H Hemoglobin A1c Lactic Acid Calcium Ferritin Alkaline Phosphatase Lactate Dehydrogenase Troponin T C-Reactive Protein Albumin Triglycerides Arterial Blood Glucose Urine WBC (Auto) Urine Creatinine Coronavirus (PCR) 07/18/20 12:08 WBC RBC Hgb Hct MCV MCH RDW Plt Count Lymph % (Auto) Lymph # (Auto) Giles # (Auto) Seg Neutrophils % Seg Neuts % (Manual) Lymphocytes % (Manual) Nucleated RBC % Seg Neutrophils # Seg Neutrophils # Man Lymphocytes # (Manual) PT INR APTT D-Dimer Heparin Anti-Xa Level ABG pH POC ABG pCO2 POC ABG pO2 ABG pO2 ABG O2 Saturation ABG Base Excess ABG Hemoglobin ABG Oxyhemoglobin ABG Potassium ABG Chloride ABG Glucose Oxyhemoglobin Carboxyhemoglobin Sodium Potassium Chloride Carbon Dioxide BUN Creatinine Glucose POC Glucose 204 H Hemoglobin A1c Lactic Acid Calcium Ferritin Alkaline Phosphatase Lactate Dehydrogenase Troponin T C-Reactive Protein Albumin Triglycerides Arterial Blood Glucose Urine WBC (Auto) Urine Creatinine Coronavirus (PCR)
[2020-07-18] MEDS ORDERED: CEFEPIME/NS 2 GM/100 ML 2 GM/100 ML BAG IV SCH (14:00)
[2020-07-18] MEDS ORDERED: SODIUM POLYSTYRENE 15 GM/60 ML ORAL LIQD PO PRN (14:05)
--- NOTE | 2020-07-18 14:06 | Progress Note ---
Assessment and Plan Sepsis -Presented with hypoxia, tachypnea and acute hypoxic respiratory failure, acute kidney injury, pneumonia on CXR and COVID-19 infection -07/06 blood cultures x2 no growth to date -s/p Antibiotic therapy -Infectious disease consulted, appreciate recommendations -Stress dose steroids stopped 07/16 COVID-19 infection -07/06 CXR shows diffuse hazy bilateral lung opacities concerning for viral infection, atypical pneumonia or pulmonary edema with no pleural effusions or pneumothorax -07/06 COVID-19 PCR positive -07/05 COVID-19 PCR at outside facility positive -Infectious disease and pulmonology consulted, appreciate recommendations -Contact/droplet isolation -Pulmonary hygiene -Supplemental oxygen as needed -S/p antibiotic therapy -07/07-07/12 s/p remdesivir therapy -S/p steroid therapy for COVID-19 infection -OOB 3 times daily -Prone to sleep as needed -Anticoagulation per protocol -Vitamin C, vitamin D and zinc -SPO2 monitoring Bilateral pneumonia -07/06 CXR shows diffuse hazy bilateral lung opacities concerning for viral infect ion, atypical pneumonia or pulmonary edema with no pleural effusions or pneumothorax -Secondary to COVID-19 infection -s/p Antibiotic therapy -Infectious disease consulted, appreciate recommendation -07/06 blood cultures x2 no growth to date Acute hypoxic respiratory failure -Room air SPO2 75% and placed on high flow nasal cannula -Pulmonary consulted, patient recommendations -Steroid therapy -Supplemental oxygen as needed -Pulmonary hygiene -SPO2 monitoring -07/13 patient was electively intubated Septic shock, started on pressors overnight 07/17 -Continue to wean off as tolerated Paroxysmal atrial fibrillation -Normal TSH this admission -Normal LVEF by echo -Started IV amiodarone and heparin 07/17/2020 -Maintaining sinus rhythm Bilateral pneumothorax -Evidenced on CXR -General surgery consulted for placement of bilateral chest tubes Acute kidney injury -12/2016 creatinine/BUN 0.9/15 -Presented with a creatinine/BUN 1.6/45 -Trend BMP -Consider nephrology consult if not improving -07/13 BUN/creatinine 44/0.9 -Secondary to vasomotor nephropathy -07/16 renal ultrasound pending -07/16 urine studies pending Leukocytosis -07/16 WBC 21.2 -Patient is on stress dose steroids -Trend CBC Thrombocytopenia -07/14 platelets 134 -Trend CBC Elevated troponin/SB -Presented with a troponin of 0.034 -07/06 troponin less than 0.10 -Cardiology consulted, appreciate recommendations -EKG as needed -No complaints of chest pain -Cardiology believes elevated troponin is in setting of acute kidney injury Elevated D-dimer -Admit D-dimer 1435 -07/06 nuclear medicine perfusion study shows low probability of pulmonary embolism -07/06 bilateral lower extremity Doppler ultrasound negative for DVT/SVT Hypertension -Titrate Antihypertensives as needed -Hydralazine as needed for SBP greater than 160 -Blood pressure monitoring per protocol Diabetes mellitus -07/06 hemoglobin A1c 11.8 -SSI -CC cardiac diet -Accu-Cheks AC at bedtime -Hypoglycemia protocol, continue insulin Hyperchloremia, -07/09 chloride 111 which trended up to 120 -07/14 106.8 -Trend BMP CARMEN likely due to ATN -07/16 urine lyte suggests prerenal cause for CARMEN -07/16 s/p 1L NS bolus -Trend BMP, not stable for hemodialysis per nephrology Hyperkalemia, due to declining renal function -Continue to monitor BMP, ordered sodium bicarbonate and Kayexalate DVT prophylaxis -Heparin drip now -GI prophylaxis -SCDs to bilateral lower extremities while in bed The high probability of a clinically significant, sudden or life threatening deterioration of the [CNC, CVS, respiratory, renal] system(s) required my full and direct attention, intervention and personal management. The aggregate critical care time was [35] minutes. This time is in addition to time spent performing reported procedures but includes the following: [x] Data Review and interpretation [x] Patient assessment and monitoring of vital signs [x] Documentation [x] Medication orders and management History Interval history: This is a 69-year-old [place]ian female with limited Iraqi with hypertension, diabetes mellitus, hyperlipidemia who presented to the hospital on 07/06 via EMS with worsening subjective fevers, headache, body ache, dry cough, dyspnea on exertion, fatigue, headache and nausea since the last week end of May. Patient had a positive COVID-19 PCR on 07/05 as outside facility. Upon arrival to the emergency department patient was hypoxic on room air at 75% and tachypneic. Work-up in the emergency department with a CXR which showed bilateral pneumonia, lactic acidosis at 2.3, acute kidney injury at 1.6/45, elevated D- dimer, elevated troponin and slight hyponatremia 136. Patient received Rocephin, azithromycin and Decadron in the emergency department. Patient was admitted to the hospitalist service as a COVID-19 PUI, acute kidney injury, sepsis, lactic acidosis, and elevated D-dimer with consults to pulmonology and infectious disease. 07/06: COVID-19 PCR positive, azithromycin and Rocephin, Decadron and remdesivir therapy 07/07: Patient is on 100% FiO2 BiPAP therapy with SPO2 in the low 90s and high 80s, hypoxia and ABG, sinus bradycardia noted overnight. Repeat CXR shows persistent diffuse pulmonary process and pulmonary edema therefore she received 40 mg of Lasix x1 and a proBNP is pending per [facility] 07/08: Patient remains on antibiotic therapy, kidney function tests have not worsened, sinus bradycardia still persist and steroid dosing was increased today by [facility]. Patient's daughter was updated today 07/09: Overnight it was noted that the patient developed bilateral small pneumothorax on AM CXR. She still remains on 100% FiO2 via Bipap and her ABG shows hypoxia. Her steroid therapy was changed per [facility] and she received lasix x1 today. 07/10: Still remains hypoxic on BiPAP. Labs reviewed-sodium 152 today. Hold off on IV fluids for today due to ongoing respiratory difficulty. Trend sodium for now and if elevated tomorrow we will start on hypotonic solution. Possible intubation in the next 24 hours if no improvement in respiratory status. Critical care on board 07/11. Her oxygen sats remains stable. Plan to switch to HFNC to see if she tolerated. Started on D5W due to worsening hyponatremia and lethargy. BMP q6 hr ordered 07/12: Patient remains on BiPAP as she was unable to maintain her oxygenation on HFNC, remains hypernatremic and hyperchloremic although improving. 07/13: CXR from this a.m. showed increase in bilateral pneumothorax size, patient was electively intubated and placed on mechanical ventilation. Surgery was consulted for placement of bilateral chest tubes. Patient's hypernatremia, leukocytosis, hyperchloremia has improved. NG tube placed and nutrition consulted. She remains hyperglycemic and her insulin dose was adjusted. 07/14: Patient's leukocytosis, hyponatremia and hypochloremia has resolved today she has metabolic acidosis and hypoxia on ABG therefore her PEEP has been increased. Patient still remains sedated on propofol and fentanyl. Bilateral chest tubes are to wall suction with minimal to no drainage. No acute events reported overnight. 07/15: Patient received Ativan overnight for agitation and her propofol was increased therefore she was slightly hypotensive, at the time my examination patient remains on mechanical ventilation and sedated with propofol/fentanyl. Her PEEP has been increased to 16. IV nurse was consulted for PICC placement as [facility] would like to have a trial run of paralytics with increased PEEP. Patient was hypoxic on ABG this a.m. and her BMP is still pending. Philpot placed 07/16: Patient noted to be severe respiratory acidosis and received 2 amps of bicarb and was placed on a bicarbonate drip. CCM stopped paralytic and bolused with normal saline today. Repeat labs in AM. Patient Renal US and urine lytes pending. Patient was hypotensive overnight. Remains on MV with Bilateral CT to wall suction in place. 07/17: Renal function declining, follow nephrology recommendation, IV fluid for now, may need HD. Patient started on amiodarone and heparin drip for atrial fibrillation per cardiology. We will continue to follow, poor prognosis 07/18; remains intubated, renal function further declined, hypernatremic, hyperkalemic. per renal not stable for HD. Patient started on pressor overnight due to hypotension. Patient also ordered for insulin drip for uncontrolled blood glucose despite placing on short and long-acting insulin. Continue to follow CBC and BMP, provide supportive care. Patient remains critically ill with very poor prognosis. Subjective Date of service: 07/18/20 Principal diagnosis: Covid 19 Interval history: Patient seen and examined maintaining Covid protocol Patient remains intubated Started on pressors overnight, remains on amiodarone Vitals noted, discussed with RN at the bedside Objective - Exam Narrative Exam: Limited physical exam due to COVID-19 pandemic to minimize transmission of the disease and to preserve PPE. Vital reviewed and stable. GENERAL: Patient is intubated HEENT: Normocephalic. Atraumatic. NECK: Supple. CHEST/LUNGS: breathing with mechanical ventilation HEART/CARDIOVASCULAR: Heart rate stable on telemetry ABDOMEN: Visibly not distended SKIN: There is no rash NEURO: does not Follow command, intubated. MUSCULOSKELETAL: No joint effusion EXTRIMITY: No swelling, no cyanosis or clubbing. PSYCH: Unable to assess. - Constitutional Vitals: Vital Signs - 12hr 07/18/20 07/18/20 07/18/20 02:15 02:30 02:45 Temperature Pulse Rate 109 H 108 H 108 H Pulse Rate [ From Monitor] Respiratory 29 H 20 27 H Rate Blood Pressure 93/53 90/58 100/55 O2 Sat by Pulse 96 95 96 Oximetry 07/18/20 07/18/20 07/18/20 03:00 03:15 03:30 Temperature Pulse Rate 109 H 108 H 108 H Pulse Rate [ From Monitor] Respiratory 31 H 30 H 18 Rate Blood Pressure 91/53 83/50 98/55 O2 Sat by Pulse 96 96 86 Oximetry 07/18/20 07/18/20 07/18/20 03:45 04:00 04:15 Temperature 99.3 F Pulse Rate 106 H 102 H 102 H Pulse Rate [ 103 H From Monitor] Respiratory 16 17 14 Rate Blood Pressure 76/46 86/50 87/50 O2 Sat by Pulse 88 95 94 Oximetry 07/18/20 07/18/20 07/18/20 04:19 04:30 04:45 Temperature Pulse Rate 102 H 102 H 103 H Pulse Rate [ From Monitor] Respiratory 13 13 Rate Blood Pressure 87/50 87/52 83/41 O2 Sat by Pulse 95 97 95 Oximetry 07/18/20 07/18/20 07/18/20 05:00 05:15 05:30 Temperature Pulse Rate 104 H 103 H 105 H Pulse Rate [ From Monitor] Respiratory 15 13 13 Rate Blood Pressure 97/51 98/47 83/56 O2 Sat by Pulse 95 94 95 Oximetry 07/18/20 07/18/20 07/18/20 05:45 06:00 06:15 Temperature Pulse Rate 105 H 104 H 105 H Pulse Rate [ From Monitor] Respiratory 13 12 12 Rate Blood Pressure 82/55 96/54 83/55 O2 Sat by Pulse 94 94 94 Oximetry 07/18/20 07/18/20 07/18/20 06:30 06:45 07:00 Temperature Pulse Rate 105 H 105 H 105 H Pulse Rate [ From Monitor] Respiratory 13 12 11 L Rate Blood Pressure 84/54 91/54 82/53 O2 Sat by Pulse 94 94 94 Oximetry 07/18/20 07/18/20 07/18/20 07:15 07:30 07:45 Temperature 99.6 F Pulse Rate 100 H 105 H 106 H Pulse Rate [ From Monitor] Respiratory 12 12 12 Rate Blood Pressure 88/53 94/58 88/54 O2 Sat by Pulse 94 94 93 Oximetry 07/18/20 07/18/20 07/18/20 08:00 08:15 08:20 Temperature Pulse Rate 104 H 105 H 106 H Pulse Rate [ From Monitor] Respiratory 12 20 Rate Blood Pressure 88/53 109/43 88/53 O2 Sat by Pulse 93 93 95 Oximetry 07/18/20 07/18/20 07/18/20 08:30 08:45 09:00 Temperature Pulse Rate 104 H 104 H 106 H Pulse Rate [ From Monitor] Respiratory 12 13 16 Rate Blood Pressure 98/56 89/55 92/52 O2 Sat by Pulse 93 94 94 Oximetry 07/18/20 07/18/20 07/18/20 09:15 09:30 09:45 Temperature Pulse Rate 107 H 108 H 108 H Pulse Rate [ From Monitor] Respiratory 13 15 13 Rate Blood Pressure 86/56 86/53 90/45 O2 Sat by Pulse 94 93 93 Oximetry 07/18/20 07/18/20 07/18/20 10:00 10:15 10:30 Temperature Pulse Rate 110 H 110 H 109 H Pulse Rate [ From Monitor] Respiratory 18 15 22 Rate Blood Pressure 94/55 86/51 103/46 O2 Sat by Pulse 93 93 93 Oximetry 07/18/20 07/18/20 07/18/20 10:45 11:00 11:15 Temperature Pulse Rate 111 H 112 H 111 H Pulse Rate [ From Monitor] Respiratory 12 13 20 Rate Blood Pressure 94/57 97/55 90/53 O2 Sat by Pulse 92 92 92 Oximetry 07/18/20 07/18/20 07/18/20 11:30 11:45 12:00 Temperature 100.5 F H Pulse Rate 112 H 114 H 115 H Pulse Rate [ From Monitor] Respiratory 18 30 H 27 H Rate Blood Pressure 87/51 96/57 86/53 O2 Sat by Pulse 93 93 93 Oximetry 07/18/20 12:29 Temperature 100.5 F H Pulse Rate Pulse Rate [ From Monitor] Respiratory Rate Blood Pressure O2 Sat by Pulse Oximetry - Labs CBC & Chem 7: 07/19/20 01:00 07/19/20 04:55 Labs: Abnormal lab results 07/17/20 07/17/20 07/17/20 Range/Units 11:50 17:30 18:20 WBC (4.5-11.0) K/mm3 RBC (3.65-5.03) M/mm3 Hgb (10.1-14.3) gm/dl Hct (30.3-42.9) % MCH (28-32) pg RDW (13.2-15.2) % Plt Count (140-440) K/mm3 Lymph % (Auto) (13.4-35.0) % [place] # (Auto) (0.0-0.8) K/mm3 Seg Neutrophils % (40.0-70.0) % Seg Neutrophils # (1.8-7.7) K/mm3 PT 15.0 H (12.2-14.9) Sec. INR 1.20 H (0.87-1.13) APTT 86.4 H* (24.2-36.6) Sec. Heparin Anti-Xa Level (0.3-0.7) U.I./ml POC ABG pCO2 (32.0-48.0) mmHg POC ABG pO2 (83-108) mmHg ABG Potassium (3.40-4.50) mmol/L ABG Glucose (65-95) mg/dL Sodium (137-145) mmol/L Potassium (3.6-5.0) mmol/L Chloride (98-107) mmol/L Carbon Dioxide (22-30) mmol/L BUN (7-17) mg/dL Creatinine (0.6-1.2) mg/dL Glucose (65-100) mg/dL POC Glucose 385 H 418 H (70-105) mg/dL Calcium (8.4-10.2) mg/dL Arterial Blood Glucose (65-95) mg/dL 07/17/20 07/18/20 07/18/20 Range/Units 23:46 00:13 04:19 WBC (4.5-11.0) K/mm3 RBC (3.65-5.03) M/mm3 Hgb (10.1-14.3) gm/dl Hct (30.3-42.9) % MCH (28-32) pg RDW (13.2-15.2) % Plt Count (140-440) K/mm3 Lymph % (Auto) (13.4-35.0) % [place] # (Auto) (0.0-0.8) K/mm3 Seg Neutrophils % (40.0-70.0) % Seg Neutrophils # (1.8-7.7) K/mm3 PT (12.2-14.9) Sec. INR (0.87-1.13) APTT (24.2-36.6) Sec. Heparin Anti-Xa Level 1.91 H (0.3-0.7) U.I./ml POC ABG pCO2 61.9 H (32.0-48.0) mmHg POC ABG pO2 72.1 L (83-108) mmHg ABG Potassium 4.7 H (3.40-4.50) mmol/L ABG Glucose 248 H (65-95) mg/dL Sodium (137-145) mmol/L Potassium (3.6-5.0) mmol/L Chloride (98-107) mmol/L Carbon Dioxide (22-30) mmol/L BUN (7-17) mg/dL Creatinine (0.6-1.2) mg/dL Glucose (65-100) mg/dL POC Glucose 310 H (70-105) mg/dL Calcium (8.4-10.2) mg/dL Arterial Blood Glucose 248 H (65-95) mg/dL 07/18/20 07/18/20 07/18/20 Range/Units 04:45 04:45 05:33 WBC 21.0 H (4.5-11.0) K/mm3 RBC 3.52 L (3.65-5.03) M/mm3 Hgb 9.1 L (10.1-14.3) gm/dl Hct 28.9 L (30.3-42.9) % MCH 26 L (28-32) pg RDW 15.6 H (13.2-15.2) % Plt Count 94 L (140-440) K/mm3 Lymph % (Auto) 9.9 L (13.4-35.0) % [place] # (Auto) 1.3 H (0.0-0.8) K/mm3 Seg Neutrophils % 83.6 H (40.0-70.0) % Seg Neutrophils # 17.6 H (1.8-7.7) K/mm3 PT (12.2-14.9) Sec. INR (0.87-1.13) APTT (24.2-36.6) Sec. Heparin Anti-Xa Level (0.3-0.7) U.I./ml POC ABG pCO2 (32.0-48.0) mmHg POC ABG pO2 (83-108) mmHg ABG Potassium (3.40-4.50) mmol/L ABG Glucose (65-95) mg/dL Sodium 147 H (137-145) mmol/L Potassium 5.1 H (3.6-5.0) mmol/L Chloride 108.0 H (98-107) mmol/L Carbon Dioxide 33 H (22-30) mmol/L BUN 127 H (7-17) mg/dL Creatinine 2.4 H (0.6-1.2) mg/dL Glucose 256 H (65-100) mg/dL POC Glucose 238 H (70-105) mg/dL Calcium 8.3 L (8.4-10.2) mg/dL Arterial Blood Glucose (65-95) mg/dL 07/18/20 07/18/20 07/18/20 Range/Units 08:22 12:00 12:08 WBC (4.5-11.0) K/mm3 RBC (3.65-5.03) M/mm3 Hgb (10.1-14.3) gm/dl Hct (30.3-42.9) % MCH (28-32) pg RDW (13.2-15.2) % Plt Count (140-440) K/mm3 Lymph % (Auto) (13.4-35.0) % [place] # (Auto) (0.0-0.8) K/mm3 Seg Neutrophils % (40.0-70.0) % Seg Neutrophils # (1.8-7.7) K/mm3 PT (12.2-14.9) Sec. INR (0.87-1.13) APTT (24.2-36.6) Sec. Heparin Anti-Xa Level 1.89 H (0.3-0.7) U.I./ml POC ABG pCO2 (32.0-48.0) mmHg POC ABG pO2 (83-108) mmHg ABG Potassium (3.40-4.50) mmol/L ABG Glucose (65-95) mg/dL Sodium (137-145) mmol/L Potassium (3.6-5.0) mmol/L Chloride (98-107) mmol/L Carbon Dioxide (22-30) mmol/L BUN (7-17) mg/dL Creatinine (0.6-1.2) mg/dL Glucose (65-100) mg/dL POC Glucose 199 H 204 H (70-105) mg/dL Calcium (8.4-10.2) mg/dL Arterial Blood Glucose (65-95) mg/dL HEART Score - HEART Score Troponin: Troponin T < 0.010 ng/mL (0.00-0.029) 07/07/20 00:22
[2020-07-18] MEDS ORDERED: INSULIN REGULAR, HUMAN 100 UNITS in SODIUM CHLORIDE 0.9% 99 ML IV SCH (15:00)
[2020-07-18] MEDS: ACETAMINOPHEN 325 MG TAB PO PRN ×2 (16:12→20:49)
[2020-07-18] MEDS: MIDAZOLAM 100 MG in SODIUM CHLORIDE 0.9% 80 ML IV SCH (18:20)
[2020-07-18] MEDS: HEPARIN/ 0.45% NACL DRIP 25,000 UNIT/500 ML BAG IV SCH (18:22)
[2020-07-18] MEDS: AMIODARONE 900 MG in DEXTROSE 5% IN WATER 482 ML IV SCH (19:00)
[2020-07-18] MEDS ORDERED: SODIUM CHLORIDE 0.9% 1000 ML 1,000 ML IV ONE (21:20)
[2020-07-18] MEDS ORDERED: NORepinephrine/NS 4 MG-250 ML 4 MG/250 ML BAG IV ONE (21:28)
[2020-07-18] MEDS: NORepinephrine/NS 4 MG-250 ML 4 MG/250 ML BAG IV SCH (21:35)
[2020-07-18 22:39] LABS: Calcium 7.6 mg/dL (8.4-10.2)
[2020-07-19] MEDS ORDERED: DOPamine/D5W 800 MG/250 ML 800 MG/250 ML BAG IV ONE (00:10)
[2020-07-19] MEDS ORDERED: SODIUM POLYSTYRENE 15 GM/60 ML ORAL LIQD PO ONE (00:13)
[2020-07-19] MEDS ORDERED: INSULIN REGULAR, HUMAN 100 UNITS/1 ML IV ONE (00:14)
[2020-07-19] MEDS ORDERED: DEXTROSE 50% IN WATER (25GM) 50 ML SYRINGE IV ONE ×2 (00:15→10:00)
[2020-07-19] MEDS ORDERED: SODIUM BICARB 8.4% 50 MEQ/50 ML SYRINGE IV ONE ×4 (00:16→10:00)
[2020-07-19] MEDS ORDERED: CALCIUM GLUCONATE 1,000 MG in SODIUM CHLORIDE 0.9% 100 ML IV ONE (00:45)
[2020-07-19] MEDS ORDERED: VASOPRESSIN 20 UNIT in SODIUM CHLORIDE 0.9% 100 ML IV ONE (01:00)
[2020-07-19] MEDS ORDERED: VASOPRESSIN 20 UNIT in SODIUM CHLORIDE 0.9% 100 ML IV SCH (01:00)
[2020-07-19] MEDS: NORepinephrine/NS 4 MG-250 ML 4 MG/250 ML BAG IV SCH ×3 (01:13→05:19)
[2020-07-19] MEDS: DOPamine/D5W 800 MG/250 ML 800 MG/250 ML BAG IV SCH ×2 (01:15→08:05)
[2020-07-19 01:17] LABS: Mean Corpuscular HGB Conc 28 % (30-34); Mean Corpuscular Volume 93 fl (79-97); Red Blood Count 1.65 M/mm3 (3.65-5.03); Red Cell Distribution Width 16.8 % (13.2-15.2)
[2020-07-19] MEDS: PHENYLEPHRINE 100 MG in SODIUM CHLORIDE 0.9% 90 ML IV SCH ×3 (01:17→08:06)
[2020-07-19 01:22] LABS: Platelet Count 48 K/mm3 (140-440)
[2020-07-19 01:26] LABS: Hematocrit 15.4 % (30.3-42.9); Hemoglobin 4.3 gm/dl (10.1-14.3)
[2020-07-19] MEDS ORDERED: SODIUM CHLORIDE 0.9% 500 ML 500 ML IV ONE (01:35)
[2020-07-19 02:46] LABS: Total Cells Counted 100
[2020-07-19 02:47] LABS: Anisocytosis Few; Hypochromasia Few
[2020-07-19 05:31] LABS: Calcium 7.3 mg/dL (8.4-10.2)
[2020-07-19] MEDS ORDERED: EPINEPHrine 1 MG/1 ML 8 MG in SODIUM CHLORIDE 0.9% 250ML 242 ML IV SCH (06:00)
[2020-07-19] MEDS: MINERAL OIL/PETROLATUM, WHITE OPHTH OINT 3.5 GM OU SCH ×2 (06:00)
[2020-07-19] MEDS ORDERED: NORepinephrine 8 MG in SODIUM CHLORIDE 0.9% 250ML 242 ML IV SCH (06:00)
[2020-07-19] MEDS ORDERED: NOREPINEPHRINE IV ONE (06:00)
[2020-07-19] MEDS: INSULIN LISPRO 100 UNIT/ML SUB-Q SCH (06:00)
[2020-07-19] MEDS ORDERED: EPINEPHrine 1 MG/1 ML 8 MG in SODIUM CHLORIDE 0.9% 250ML 242 ML IV ONE (06:00)
[2020-07-19] MEDS ORDERED: SODIUM CHLORIDE 0.9% IV ONE (06:00)
[2020-07-19] MEDS ORDERED: SODIUM CHLORIDE 0.9% 1000 ML 1,000 ML IV ONE (06:30)
[2020-07-19] MEDS: HYDROCORTISONE SOD SUCC 100 MG/2 ML VIAL IV SCH (06:40)
[2020-07-19] MEDS: DEXTROSE 50% IN WATER (25GM) 50 ML SYRINGE IV PRN ×2 (06:40→06:41)
[2020-07-19] MEDS ORDERED: SODIUM CHLORIDE 0.9% 500 ML 500 ML IV NR ×2 (07:34→08:01)
[2020-07-19 07:40] VITALS: BP 53/32
[2020-07-19] MEDS ORDERED: DEXTROSE 10% IN WATER 1,000 ML IV SCH (08:00)
[2020-07-19] MEDS ORDERED: PHYTONADIONE(ADULT ONLY) 10 MG in SODIUM CHLORIDE 0.9% 50 ML IV ONE (08:30)
[2020-07-19] MEDS ORDERED: DEXTROSE 50% IN WATER (25GM) 50 ML VIAL IV ONE (08:37)
[2020-07-19] MEDS ORDERED: CALCIUM CHLORIDE 1,000 MG/10 ML SYRINGE IV ONE (08:37)
[2020-07-19] MEDS ORDERED: EPINEPHrine 1 MG/10 ML SYRINGE ONE (08:37)
--- NOTE | 2020-07-19 09:16 | Event Note ---
Date: 07/19/20 Patient's clinical condition severely deteriorated overnight Noted to be severely hypotensive and started on multiple pressors Patient also evident to have GI bleed with bloody stool, heparin drip was discontinued, patient was on Pepcid IV already, ordered for blood transfusion, FFP, vitamin K Patient noted hyperkalemic with potassium of 7.0 -ordered for sodium bicarbonate, calcium gluconate. Not a candidate for hemodialysis per nephrology. Patient was also not a candidate for Kayexalate due to GI bleed. Insulin was not given due to severe hypoglycemia. Patient was noted to be persistently hypoglycemic, started on D10 fluid Patient's oxygenation dropped to 71% and also requiring 100% FiO2 on ventilator with PEEP of 16 to maintain oxygenation greater than 92% Patient failed all medical management and went into cardiac arrest this morning ACLS initiated immediately, patient was given epinephrine bicarbonate and calcium chloride per ACLS protocol Spontaneous return of pulse obtained during the first cardiac arrest I personally spoke with the patient patient's son and her daughter Updated her clinical condition and expressed that patient is critically ill and may have another cardiac arrest soon, possibly patient may not survive today. Within few minutes patient went into another cardiac arrest with asystole/PEA Multiple rounds of epinephrine, bicarbonate, D50 and calcium chloride given but patient remained in asystole and was unable to get her pulse back She was pronounced at 9:05, called family/daughter for update. Also spoke with the and daughter personally in the ICU CC time spend: 65 minutes
--- NOTE | 2020-07-19 09:16 | Death Summary ---
Summary - Providers Date of service: 07/19/20 Consults: 07/06/20 10:51 Consult to Physician [CONS] Routine Comment: Consulting Provider: SHASHANK CHINCHILLA Physician Instructions: Reason For Exam: Acute hypoxic respiratory failure/Covid PUI Consult to Physician [CONS] Routine Comment: Consulting Provider: LAUREN REYNOSO Physician Instructions: Reason For Exam: COVID PUI 07/06/20 10:52 Consult to Physician [CONS] Routine Comment: Consulting Provider: LEONID BLANCO Physician Instructions: Reason For Exam: Elevated cardiac enzymes 07/07/20 03:55 Consult to Physician [CONS] Routine Comment: dr jalil meza/ jay Consulting Provider: JERSON CISSE Physician Instructions: Reason For Exam: ICU admission 07/13/20 10:46 Consult to Dietitian/Nutrition [CONS] Routine Physician Instructions: Reason For Exam: Reason for Consult: Evaluate nutritional intake 07/13/20 11:26 Consult to Physician [CONS] Urgent Comment: dr. jalil matthews to dr. roche/ jay Consulting Provider: JAMES ROCHE Physician Instructions: Reason For Exam: Bilateral PTX, need bilateral surgical chest tubes 07/15/20 13:27 Consult to PICC Line RN [CONS] Stat Reason For Exam: iv access for pressors Type Line:: PICC 07/16/20 10:10 Consult to Physician [CONS] Routine Comment: called office/ jay Consulting Provider: CHAVEZ GÓMEZ Physician Instructions: Reason For Exam: Renal Failure, COVID, may need HD Attending: PONCE MOREJON - summary Date of admission: 07/06/20 15:45 Date of : 07/19/20 Significant findings: Cause of : Cardiopulmonary arrest due to multiorgan failure due to severe sepsis with septic shock, severe COVID-19 infection, severe anemia.
== END 2020-07-19 12:05 | DRG 870 ==
LOC: ED 07:52 → 3A 10:06 → OBSVTOIN 15:45 → CC1 21:34
PROVIDERS: ADMIT Internal Medicine; ATTEND Internal Medicine
PROC: XW033E5 Introduction of Remdesivir Anti-infective into Peripheral Vein, Percutaneous Approach, New Technology Group 5 (ICD-10-PCS; 2020-07-06)
PROC: 4A033R1 Measurement of Arterial Saturation, Peripheral, Percutaneous Approach (ICD-10-PCS; 2020-07-06)
PROC: 5A0935A Assistance with Respiratory Ventilation, Less than 24 Consecutive Hours, High Flow/Velocity Cannula (ICD-10-PCS; 2020-07-06)
PROC: 5A09357 Assistance with Respiratory Ventilation, Less than 24 Consecutive Hours, Continuous Positive Airway Pressure (ICD-10-PCS; 2020-07-06)
PROC: 5A09457 Assistance with Respiratory Ventilation, 24-96 Consecutive Hours, Continuous Positive Airway Pressure (ICD-10-PCS; 2020-07-07)
PROC: 5A09457 Assistance with Respiratory Ventilation, 24-96 Consecutive Hours, Continuous Positive Airway Pressure (ICD-10-PCS; 2020-07-09)
PROC: 5A1955Z Respiratory Ventilation, Greater than 96 Consecutive Hours (ICD-10-PCS; principal; 2020-07-13)
PROC: 0BH17EZ Insertion of Endotracheal Airway into Trachea, Via Natural or Artificial Opening (ICD-10-PCS; 2020-07-13)
PROC: 0W9B30Z Drainage of Left Pleural Cavity with Drainage Device, Percutaneous Approach (ICD-10-PCS; 2020-07-13)
PROC: 0W9930Z Drainage of Right Pleural Cavity with Drainage Device, Percutaneous Approach (ICD-10-PCS; 2020-07-13)
PROC: 02HV33Z Insertion of Infusion Device into Superior Vena Cava, Percutaneous Approach (ICD-10-PCS; 2020-07-15)
PROC: 30233N1 Transfusion of Nonautologous Red Blood Cells into Peripheral Vein, Percutaneous Approach (ICD-10-PCS; 2020-07-19)
DX: A41.89 Other specified sepsis (principal); U07.1 COVID-19; J96.01 Acute respiratory failure with hypoxia; J12.82 Pneumonia due to coronavirus disease 2019; R65.21 Severe sepsis with septic shock; N17.0 Acute kidney failure with tubular necrosis; E87.2 Acidosis; E87.1 Hypo-osmolality and hyponatremia; J93.9 Pneumothorax, unspecified; I10 Essential (primary) hypertension; E11.65 Type 2 diabetes mellitus with hyperglycemia; Z79.84 Long term (current) use of oral hypoglycemic drugs; E78.5 Hyperlipidemia, unspecified; R79.1 Abnormal coagulation profile; D64.9 Anemia, unspecified; I46.9 Cardiac arrest, cause unspecified; I48.0 Paroxysmal atrial fibrillation; R79.89 Other specified abnormal findings of blood chemistry; D69.6 Thrombocytopenia, unspecified; D72.829 Elevated white blood cell count, unspecified; E87.8 Other disorders of electrolyte and fluid balance, not elsewhere classified; E87.5 Hyperkalemia; I95.9 Hypotension, unspecified
CPT/HCPCS: 36415; 36600; 36620; 71045; 74018; 78580; 80048; 80053; 81001; 82140; 82550; 82553; 82570; 82728; 82803; 82805; 82947; 82962; 83036; 83615; 83735; 83880; 83935; 84100; 84145; 84300; 84443; 84478; 84484; 84520; 85007; 85014; 85018; 85025; 85027; 85379; 85520; 85610; 85730; 86140; 86850; 86900; 86901; 86920; 87040; 87070; 87086; 87205; 93005; 93306; 93970; 94002; 94003; 94660; 94760; 96365; G0378; A9540; J0171; J0282; J0330; J0456; J0610; J0692; J0696; J1100; J1265; J1630; J1644; J1720; J1815; J1940; J2060; J2250; J2370; J2704; J2930; J3010; J3430; J3486; J7030; J7040; J7050; J7060; J7070; J8540; P9016; U0003